=== PATIENT | male | born 1955 | race Caucasian/White ===

== ENCOUNTER 2017-12-15 10:22 | Inpatient (IN) | payer MEDICAID, SELFPAY ==
[2017-12-15] VITALS (101 sets, daily range): BP systolic 112–191; BP diastolic 77–128; PULSE 99–135; RESP 14–27; TEMP 36.7–38.4; O2SAT 90–100
[2017-12-15 10:59] LABS: Abs Immature Grans 0.04 k/cumm (0.0-0.09); Absolute Basophil Count 0.04 k/cumm (0.0-0.2); Absolute Eosinophil Count 0.04 k/cumm (0.0-0.7); Absolute Lymphocyte Count 1.09 k/cumm (1.2-3.4); Absolute Monocyte Count 0.54 k/cumm (0.11-0.7); Absolute Neutrophil Count 7.41 k/cumm (1.2-6.7); Basophils % 0.4; Eosinophils % 0.4; Immature Grans % 0.4; Lymphocytes % 11.9; Mean Corp. HGB Concentration 28.6 g/dL (32.0-36.0); Mean Corpuscular Hemoglobin 22.8 pg (27.0-33.0); Mean Corpuscular Volume 79.9 fL (80-95); Mean Platelet Volume 8.8 fL (8.0-11.0); Monocytes % 5.9; RBC 1.84 m/cumm (4.50-6.00); White Blood Cell Count 9.16 k/cumm (4.4-10.8)
[2017-12-15 11:08] LABS: HGB 4.2 g/dL (13.5-17.5)
[2017-12-15 11:09] LABS: HCT 14.7 % (40.0-50.0)
[2017-12-15 11:15] LABS: ALT 10 U/L (12-78); AST 6 U/L (15-37); Alkaline Phosphatase 112 U/L (46-116); Anion Gap 18.1 mmol/L (3-11); Bilirubin, Total 0.2 mg/dL (0.2-1.0); CO2 16.9 mmol/L (21.0-32.0); Calcium 8.9 mg/dL (8.5-10.1); Chloride 104 mmol/L (98-107); Glucose 154 mg/dL (70-100); Lipase 193 U/L (73-393); Potassium 3.4 mmol/L (3.5-5.1); Sodium 139 mmol/L (136-145); Total Protein 7.2 g/dL (6.4-8.2)
--- NOTE | 2017-12-15 11:16 | DI.RPTCT_ITS ---
SYMPTOMS/DIAGNOSIS: COUGH, HEMATURIA, SHORTNESS OF BREATH, WT LOSS, CONCERN FOR CANCER CT SCAN OF THE CHEST, ABDOMEN AND PELVIS: CT scan of the chest, abdomen and pelvis was performed without intravenous or oral contrast material. CT SCAN OF THE ABDOMEN AND PELVIS: The urinary bladder is enlarged with asymmetric bladder wall thickening. There does appear to be a mass involving the base of the bladder extending superiorly , posteriorly and left laterally. The mass measures at least 10.4 cm in length. Calcifications are associated with the mass. While this may represent a bladder mass, the possibility of an infiltrative enlarged prostatic mass can not be excluded. The mass does result in bilateral marked hydronephrosis. There does appear to be some atrophy of the left kidney. There are several round hypodensities seen within the liver. Further characterization is limited due to the lack of IV contrast. The gallbladder is negative by CT criteria. No biliary ductal dilatation is seen. Splenic granuloma are seen. The pancreas is unremarkable. There is thickening of the limbs of the left adrenal gland. The right adrenal gland is unremarkable. There is diverticulosis of the colon but no findings to suggest acute diverticulitis. No findings to suggest an acute appendicitis or bowel inflammation or obstruction is seen. No significant abdominal or pelvic ascites or adenopathy is present. There is atherosclerosis of the abdominal aorta but no aneurysmal dilatation is present. There is a large right hydrocele noted. There is ankylosis of the right sacroiliac joint. Multi-level degenerative changes are present throughout the lumbar spine. No suspicious lytic or sclerotic lesions are seen in the bones. IMPRESSION: 1. Large mass involving the urinary bladder suspicious for a neoplasm. The possibility of a large infiltrative prostate carcinoma can not be excluded. 2. Resultant marked bilateral hydronephrosis with mild left renal atrophy. 3. Hypodense lesions seen within the liver. They can not be further characterized on this noncontrast examination. While these may represent cysts, hepatic metastases can not be excluded. 4. Thickening of the left adrenal gland. Follow up is recommended. 5. MRI should be considered for further evaluation of these findings in the liver and adrenal gland. CT SCAN OF THE CHEST: The thoracic aorta is of normal caliber with mild atherosclerosis. The heart size is within normal limits. No significant pericardial effusion is seen. Coronary artery calcifications are present. No significant mediastinal or hilar adenopathy is seen on this noncontrast examination. No pleural effusion or pneumothorax is identified. Severe emphysematous changes are present in the lungs. No noncalcified pulmonary nodules or pulmonary infiltrates are seen. Degenerative changes are present in the spine. No suspicious lytic or sclerotic lesions are seen in the bones. IMPRESSION: 1. No evidence of thoracic metastatic disease. 2. Severe emphysematous changes. These findings were discussed with Dr. Humphreys of the emergency department on the date of the examination.
[2017-12-15 11:17] LABS: BUN 86 mg/dL (7-18); CREATININE 8.51 mg/dL (0.70-1.30); Troponin I 0.07 ng/mL (0.00-0.06)
[2017-12-15] MEDS: Normal Saline 1,000 ML 1000 ML IV (11:17)
[2017-12-15 11:25] LABS: Anisocytosis 1+; Diff Comment RBC Morph Reviewed; Hypochromasia 3+; Microcytosis 2+; Ovalocytes 2+; Polychromasia Present
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
[2017-12-15 11:26] LABS: Platelet Count 663 x1000/uL (130-400); Poikilocytes 1+
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
[2017-12-15 13:51] LABS: Bilirubin Negative (Negative); Blood Large (Negative); Clarity Cloudy; Glucose Negative (Negative); Ketones Negative (Negative); Leukocyte Esterase Trace (Negative); Nitrite Negative (Negative); Urobilinogen 0.2 EU/dL (Up TO 0.2)
[2017-12-15 13:55] LABS: RBC >50 (0-2)
[2017-12-15 13:56] LABS: C & S Indicated? C&S Done As Ordered
[2017-12-15 15:47] LABS: Troponin I 0.27 ng/mL (0.00-0.06)
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
[2017-12-15 19:35] LABS: Troponin I 0.55 ng/mL (0.00-0.06)
[2017-12-15 22:29] LABS: Troponin I 0.67 ng/mL (0.00-0.06)
[2017-12-15 23:30] LABS: HCT 24.4 % (40.0-50.0); HGB 7.9 g/dL (13.5-17.5); Mean Corp. HGB Concentration 32.4 g/dL (32.0-36.0); Mean Corpuscular Hemoglobin 26.7 pg (27.0-33.0); Mean Corpuscular Volume 82.4 fL (80-95); Mean Platelet Volume 9.2 fL (8.0-11.0); Platelet Count 561 x1000/uL (130-400); RBC 2.96 m/cumm (4.50-6.00); RBC Distribution Width 16.7 % (11.8-14.1); White Blood Cell Count 12.93 k/cumm (4.4-10.8)
[2017-12-15] MEDS: Acetaminophen 500 MG TAB 1000 MG PO (23:38)
[2017-12-15] MEDS: Normal Saline Flush 10 ML SYR IVP (23:54)
[2017-12-16] VITALS (46 sets, daily range): BP systolic 112–159; BP diastolic 76–97; PULSE 92–116; RESP 17–23; TEMP 36.2–37.7; O2SAT 93–98
[2017-12-16 06:54] LABS: Abs Immature Grans 0.02 k/cumm (0.0-0.09); Absolute Eosinophil Count 0.08 k/cumm (0.0-0.7); Absolute Lymphocyte Count 1.11 k/cumm (1.2-3.4); Basophils % 0.2; Eosinophils % 0.7; HCT 22.9 % (40.0-50.0); HGB 7.2 g/dL (13.5-17.5); Immature Grans % 0.2; Lymphocytes % 9.2; Mean Corp. HGB Concentration 31.4 g/dL (32.0-36.0); Mean Corpuscular Hemoglobin 25.9 pg (27.0-33.0); Mean Corpuscular Volume 82.4 fL (80-95); Mean Platelet Volume 9.4 fL (8.0-11.0); Monocytes % 9.1; Neutrophils % 80.6; Platelet Count 504 x1000/uL (130-400); RBC 2.78 m/cumm (4.50-6.00); RBC Distribution Width 16.4 % (11.8-14.1); White Blood Cell Count 12.04 k/cumm (4.4-10.8)
[2017-12-16 06:57] LABS: Absolute Basophil Count 0.02 k/cumm (0.0-0.2)
[2017-12-16 07:13] LABS: ALT 10 U/L (12-78); AST 7 U/L (15-37); Albumin 2.6 g/dL (3.4-5.0); Alkaline Phosphatase 96 U/L (46-116); Anion Gap 20.2 mmol/L (3-11); Bilirubin, Total 0.4 mg/dL (0.2-1.0); CO2 13.8 mmol/L (21.0-32.0); Calcium 8.6 mg/dL (8.5-10.1); Chloride 106 mmol/L (98-107); Estimated GFR 6.58 (mL/min/1.73m2); Glucose 92 mg/dL (70-100); Potassium 3.6 mmol/L (3.5-5.1); Sodium 140 mmol/L (136-145); Total Protein 6.1 g/dL (6.4-8.2)
[2017-12-16 07:29] LABS: BUN 85 mg/dL (7-18)
[2017-12-16 07:30] LABS: Troponin I 0.67 ng/mL (0.00-0.06)
--- NOTE | 2017-12-16 09:46 | PHARADMIT ---
Addendum entered by Blaise Mota III 12/17/17 12:42: Pharmacy Note Subjective Patient went down to [facility] for nephrostomy tube placement. Received four transfusions while here. Objective VS-OK SCr-8.47 WBC-13.92 H&H-9.7/29.8 Assessment No new meds Plan to biopsy bladder mass when patient returns, from [facility] . Original Note: Admission Pharmacy Clinical Review Anemia, renal failure, malignancy, Bladder mass Code Status Full Code Current Weight Wgt- 56 kg Renally Cleared and Narrow Therapeutic Index Meds CrCl~ 7 mL/min Meds-OK QTc Value / Action Taken QTc-478 na BP Control, Fever BP- 134/82 Tmax- 38.4C Electrolytes reviewed Na- 140 K+3.6 DVT Prophylaxis none Opiate Usage / Scheduled Bowel Regimen Ordered No Yes Plt/SCr for Heparin / Enoxaparin Plts-5450 SCr-8.30 INR for Warfarin na H/H stable, WBC/Bands H&H- 7.2/22.9 WBC-12.04 Antibiotic appropriateness none Cultures and Sensitivities Urine/Blood- pending Surgical ABX d/c within 24 hr na DM control / Insulin Dosing BG- 92 Heart Failure (Check EF%) (EDMUND's, B-Block, Diuretics) none IV to PO Switch No Home Meds Reviewed Yes Home Meds Not Ordered No known home meds Comments
[2017-12-16] MEDS: Acetaminophen 325 MG TAB PO (12:39)
[2017-12-16 16:17] LABS: HCT 27.9 % (40.0-50.0); HGB 9.2 g/dL (13.5-17.5)
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
--- NOTE | 2017-12-16 17:55 | UCONE_ITS ---
DATE OF ENCOUNTER: December 16, 2017 IMPRESSION: Pelvic mass. PLAN: Given the smoking history and the peripheral calcifications on the mass, I would suspect it is a bladder primary versus a prostate primary. A biopsy would certainly be in order. When I spoke wi th our anesthesia providers about this gentleman, they were quite leery about giving him any anesthet ic, especially in the face of a rising troponin level. We will see what his lab work does overnight. I have allowed him to start eating today but I have as ked him to be n.p.o. after midnight until I evaluate him early in the morning. I can then revisit th e case with our anesthesia providers and see if there is any higher comfort level in giving him some monitored anesthesia care. The odds of placing retrograde stents in this gentleman are next to nothing so arranging for Inter[facility] tional Radiology to place nephrostomy tubes is highly recommended. If our anesthesia providers are n ot overly comfortable with the monitored anesthesia care here at our facility, we will defer on the b iopsy and allow the more definitive cystoscopy and biopsy to be taken at a larger facility once a tra nsfer can be arranged. CHIEF COMPLAINT: Pelvic mass. HISTORY: This is a 62-year-old gentleman who presented to the Emergency Room yesterday. He was comp laining of weakness and lightheadedness. He also admits that he has lost between 70 and 80 pounds ov er the past year without trying. He has had gross hematuria for 6 to 12 months now. He occasionally will pass clots. He has never zamora d any dysuria. He currently admits to having a good stream when he starts urinating but then having the clots or something cut down on his stream immediately. When he was evaluated in the Emergency Room he was found to be severely anemic with a hemoglobin of 4 . His serum creatinine was up over 8. A CT scan demonstrated a very large pelvic mass that replaces the majority of his bladder. He also has bilateral hydronephrosis and hydroureter. There is some l oss of renal parenchyma on the left side. The right renal parenchyma appears fairly well preserved. Initially it was recommended that he be transferred to a larger facility that has access to [facility] Radiology for nephrostomy tube placement as well as dialysis capabilities. No beds were availa ble so he was admitted to our facility until a bed opens up. I have been asked to see him for consideration of a biopsy of his pelvic mass for tissue diagnosis. Since his admission he has received 4 units of packed red blood cells. His hemoglobin has increased to 7.9 grams per dL after 3 units of blood. At the time of his admission his troponin level was slightly elevated. It has continued to rise thro ughout the last 24 hours. PAST MEDICAL HISTORY: Significant for inguinal hernia and hydrocele. PAST SURGICAL HISTORY: Lumbar laminectomy and ankle surgery. CURRENT MEDICATIONS: Listed elsewhere in the chart. ALLERGIES: Sulfa. SOCIAL HISTORY: He is a long-time smoker. REVIEW OF SYSTEMS: GENERAL: He does admit to weakness. HEENT: He has no vision change. ENDOCRINE: He has no history of diabetes or thyroid dysfunction. RESPIRATORY: He has a chronic cough. He has no hemoptysis. CARDIAC: He denies chest pain. GI: He has no nausea or vomiting. He has no history of hepatitis, ulcers, or jaundice. NEURO: He has no seizures or migraine headaches. HEME: He has no known bleeding disorders. PHYSICAL EXAMINATION: GENERAL: He appears older than his stated age. He does not appear to be in any distress. ABDOMEN: Soft, with no peritoneal signs. His bladder is not distended. There is some firmness over the suprapubic region. EXTREMITIES: There is no edema in the lower extremities. No inguinal adenopathy was found. LABS/IMAGING: I reviewed his labs as well as his CT scan. There is a large mass that occupies the m ajority of the lumen of his bladder. There appears to be some calcification on the periphery of the mass and areas. There is bilateral hydronephrosis and hydroureter all the way down to the bladder.
--- NOTE | 2017-12-16 21:19 | PGE_ITS ---
DATE: December 16, 2017 ASSESSMENT AND PLAN: #1. Profound anemia. Likely on the basis of severe hematuria from a friable pelvic mass, presumed t o be a malignancy. I spoke with Dr. Sharma from Urology and the hope is that he can do a cystoscopy a nd biopsy fairly simply given the size and location of the mass. We are hoping that could be done to jeanne. #2. Acute renal failure. This is likely on the basis of obstruction of both ureters. He has hydrou reter and hydronephrosis. The plan is to set him up for bilateral nephrostomy tubes. This is going to be done through [facility]iology at [facility]. This is set up for early tomorrow morning, down and back procedure. We are hoping his renal function will improve with this drainage procedure . #3. Elevated troponins. At this point we are presuming this is likely on the basis of demand ischem ia when he was anemic. His troponins peaked at 0.67 and are now trending downward. EKG does show so me T wave inversion anterolaterally. We will repeat his EKG and further trend his troponins, but it does not appear to be on the basis of a primary coronary artery disease. Type II acute coronary synd albina. Further ischemic workup to be done as an outpatient. #4. Disposition. Transferred out of the ICU today. Continue to monitor in acute care status as abo ve. REASON FOR ADMISSION: Severe anemia/renal failure/pelvic mass. SUBJECTIVE: He had a relatively good night. There were some problems with urinary drainage and he h ad to have his catheter changed or manipulated. He continues to drain fairly large amounts of burgun dy urine. Pain control is not an issue. His appetite has been okay. He is actually upset about not eating this morning. He denies fever, chills, or rigors. OBJECTIVE: Vital signs: Temperature 37.3, T-max is 38.4 which occurred at around 11:30 p.m. last night. Blood pressure 144/94. Respiratory rate 20. Pulse 109. Saturation 96% on room air. General: On exam he is a somewhat disheveled appearing man but in good spirits, in no apparent distr ess. Abdomen: The abdominal exam remains benign. He has a flat abdomen. No masses are palpable. No gua rding or rebound. LABORATORY EVALUATION: White count 12.04 thousand. Hemoglobin had come down to 7.2. He received 2 more units of packed red cells today and it came up to 9.2. Hematocrit 27.9. Platelets 504,000, 80 segs, 9 lymphs, no bands. Sodium 140, potassium 3.6, BUN 85, creatinine 8.3. Cardiac troponins 0.07, 0.27, 0.55, 0.67, 0.67, 0.40.
[2017-12-16] MEDS: Mylanta Suspension 30 ML CUP PO (22:15)
[2017-12-16] MEDS: Normal Saline Flush 10 ML SYR IVP (22:25)
[2017-12-17] VITALS (8 sets, daily range): BP systolic 111–154; BP diastolic 76–104; PULSE 98–107; RESP 17–20; TEMP 36.4–37.1; O2SAT 96–98
--- NOTE | 2017-12-17 04:04 | NUR.NOTE ---
Nursing Note: Pt stating urge to void, but not passing urine. Physician informed. Pulled back on Giron at [place] with empty syringe w/ no result, pushed 30 mL of NS and pulled back with no result, checked catheter visually for clot, none seen. Bloody, watery fluid dripping from uretheral meatus, around catheter.
--- NOTE | 2017-12-17 05:58 | NUR.NOTE ---
Nursing Note: Pt again stating very painful urge to void. Flushed Giron with 50 mL NS and pulled back producing an instant 250 of red/burgundy hematuria. Pt states instant relief of pain.
[2017-12-17 07:04] LABS: Abs Immature Grans 0.04 k/cumm (0.0-0.09); Absolute Basophil Count 0.03 k/cumm (0.0-0.2); Absolute Lymphocyte Count 0.96 k/cumm (1.2-3.4); Absolute Monocyte Count 1.27 k/cumm (0.11-0.7); Absolute Neutrophil Count 11.39 k/cumm (1.2-6.7); Basophils % 0.2; Eosinophils % 1.7; HCT 29.8 % (40.0-50.0); HGB 9.7 g/dL (13.5-17.5); Immature Grans % 0.3; Lymphocytes % 6.9; Mean Corp. HGB Concentration 32.6 g/dL (32.0-36.0); Mean Corpuscular Hemoglobin 26.9 pg (27.0-33.0); Mean Corpuscular Volume 82.8 fL (80-95); Mean Platelet Volume 9.3 fL (8.0-11.0); Monocytes % 9.1; Neutrophils % 81.8; Platelet Count 535 x1000/uL (130-400); RBC Distribution Width 16.4 % (11.8-14.1); White Blood Cell Count 13.92 k/cumm (4.4-10.8)
--- NOTE | 2017-12-17 07:06 | NUR.NOTE ---
Nursing Note: Nurse to nurse with Rhona at [facility] [place], [address].
[2017-12-17 07:08] LABS: Absolute Eosinophil Count 0.24 k/cumm (0.0-0.7)
[2017-12-17 07:14] LABS: Anion Gap 18.9 mmol/L (3-11); CO2 15.1 mmol/L (21.0-32.0); Calcium 8.7 mg/dL (8.5-10.1); Chloride 106 mmol/L (98-107); Estimated GFR 6.43 (mL/min/1.73m2); Glucose 110 mg/dL (70-100); Potassium 3.9 mmol/L (3.5-5.1); Sodium 140 mmol/L (136-145)
[2017-12-17 07:17] LABS: BUN 89 mg/dL (7-18); CREATININE 8.47 mg/dL (0.70-1.30)
--- NOTE | 2017-12-17 08:43 | PDOC.PROG ---
Date of Service: 12/17/17 Time of Service: 08:43 Assessment/Plan - Assessment/Plan (1) Pelvic mass in male Plan: Having the nephrostomy tubes placed to divert the urine away from the bladder will help immensely. If/when his renal function improves, he may be more stable for a cystoscopy and more extensive TURBT rather than a simple biopsy. The more extensive TURBT would allow for better identification and staging of his primary lesion. History of Present Illness - History of Present Illness Chief Complaint: Bladder mass History of Present Illness: He had clot retention overnight requiring hand irrigation. He is due for nephrostomy tube placement at [facility] [place]. Review of Systems - Review of Systems Constitutional: denies: Fever, Chills Respiratory: denies: Shortness of Breath Cardiovascular: denies: Chest Pain - Medications/Allergies Allergies/Adverse Reactions: Allergies Allergy/AdvReac Type Severity Reaction Status Date / Time Sulfa (Sulfonamide Allergy Intermediate Unverified 12/15/17 10:33 Antibiotics) Medications: Current Medications Acetaminophen (Tylenol) 650 mg VA Q4H PRN PRN Acetaminophen (Tylenol) 325 - 650 mg PO Q4H PRN PRN Last Admin: 12/16/17 12:39 Dose: 650 mg Al Hydrox/Mg Hydrox/Simethicone (Mylanta Liquid) 30 ml PO Q2H PRN PRN Last Admin: 12/16/17 22:15 Dose: 30 ml Albuterol Sulfate (Proventil Updraft) 2.5 mg UPD Q2H PRN PRN Dimethicone/Zinc Oxide (Yudi Protect Cream) 0 gm TP PRN PRN Docusate Sodium (Colace) 100 mg PO TID PRN PRN IV Miscellaneous Supplies () 1 each IV DIRECTED WAYNE Magnesium Hydroxide (Milk Of Magnesia) 30 ml PO DAILY PRN PRN Nicotine (Nicoderm Cq) 14 mg TD DAILY PRN PRN Polyethylene Glycol (Miralax) 17 gm PO DAILY PRN PRN PRN Reason: Constipation Sodium Chloride (Saline Flush 10 Ml Syringe) 0 ml IVP PRN PRN Last Admin: 12/16/17 22:25 Dose: 20 ml Objective - Exam Vitals and I&O: Vital Signs Temp 37.1 C 12/17/17 07:05 Pulse 98 H 12/17/17 07:05 Resp 20 12/17/17 07:05 BP 145/98 12/17/17 07:05 Pulse Ox 96 12/17/17 07:05 Intake & Output 12/16/17 12/16/17 12/17/17 11:59 23:59 11:59 Intake Total 713 670 Output Total 850 Balance 713 -180 Weight 56 kg 57 kg Intake: IV 463 20 Oral 250 250 Blood Product 350 Rbc Leuko Reduced Unit 350 [id number] Other 50 Rbc Leuko Reduced Unit 50 [id number] Output: Urine 550 Stool 300 Other: Urine Color Dark Red Dark Red Urine Appearance Hematuria Hematuria Clots Comment Lots of clots, Dr. Velazquez aware. REYNALDO Vazquez in to see patient. Stool Size Small Small Stool Characteristics Liquid Soft Mucoid Brown Bloody Voiding Methods Indwelling Catheter - Results Results: Laboratory Results WBC 13.92 k/cumm (4.4-10.8) H 12/17/17 06:42 RBC 3.60 m/cumm (4.50-6.00) L 12/17/17 06:42 Hgb 9.7 g/dL (13.5-17.5) L 12/17/17 06:42 Hct 29.8 % (40.0-50.0) L 12/17/17 06:42 MCV 82.8 fL (80-95) 12/17/17 06:42 MCH 26.9 pg (27.0-33.0) L 12/17/17 06:42 MCHC 32.6 g/dL (32.0-36.0) 12/17/17 06:42 RDW 16.4 % (11.8-14.1) H 12/17/17 06:42 Plt Count 535 x1000/uL (130-400) H 12/17/17 06:42 MPV 9.3 fL (8.0-11.0) 12/17/17 06:42 Immature Gran % 0.3 12/17/17 06:42 Neutrophils % 81.8 12/17/17 06:42 Lymphocytes % 6.9 12/17/17 06:42 Monocytes % 9.1 12/17/17 06:42 Eosinophils % 1.7 12/17/17 06:42 Basophils % 0.2 12/17/17 06:42 Absolute Neutrophils 11.39 k/cumm (1.2-6.7) H 12/17/17 06:42 Absolute Lymphocytes 0.96 k/cumm (1.2-3.4) L 12/17/17 06:42 Absolute Monocytes 1.27 k/cumm (0.11-0.7) H 12/17/17 06:42 Absolute Eosinophils 0.24 k/cumm (0.0-0.7) 12/17/17 06:42 Absolute Basophils 0.03 k/cumm (0.0-0.2) 12/17/17 06:42 Differential Comment Rbc morph reviewed 12/15/17 10:39 RBC Morphology See below 12/15/17 10:39 Polychromasia Present 12/15/17 10:39 Hypochromasia 3+ 12/15/17 10:39 Poikilocytosis 1+ 12/15/17 10:39 Anisocytosis 1+ 12/15/17 10:39 Microcytosis 2+ 12/15/17 10:39 Ovalocytes 2+ 12/15/17 10:39 Sodium 140 mmol/L (136-145) 12/17/17 06:42 Potassium 3.9 mmol/L (3.5-5.1) 12/17/17 06:42 Chloride 106 mmol/L (98-107) 12/17/17 06:42 Carbon Dioxide 15.1 mmol/L (21.0-32.0) L 12/17/17 06:42 Anion Gap 18.9 mmol/L (3-11) H 12/17/17 06:42 BUN 89 mg/dL (7-18) H* 12/17/17 06:42 Creatinine 8.47 mg/dL (0.70-1.30) H* 12/17/17 06:42 Estimated GFR/1.73 m2 6.43 (mL/min/1.73m2) 12/17/17 06:42 Glucose 110 mg/dL (70-100) H 12/17/17 06:42 Calcium 8.7 mg/dL (8.5-10.1) 12/17/17 06:42 Total Bilirubin 0.4 mg/dL (0.2-1.0) 12/16/17 06:10 AST 7 U/L (15-37) L 12/16/17 06:10 ALT 10 U/L (12-78) L 12/16/17 06:10 Alkaline Phosphatase 96 U/L (46-116) 12/16/17 06:10 Troponin I 0.40 ng/mL (0.00-0.06) H 12/16/17 16:05 Total Protein 6.1 g/dL (6.4-8.2) L 12/16/17 06:10 Albumin 2.6 g/dL (3.4-5.0) L 12/16/17 06:10 Lipase 193 U/L (73-393) 12/15/17 10:39 TSH 1.70 uIU/mL (0.358-3.74) 12/15/17 10:39 Urine Color Red (Yellow) 12/15/17 13:30 Urine Clarity Cloudy 12/15/17 13:30 Urine pH 6.0 (5-8) 12/15/17 13:30 Ur Specific [place] 1.020 (1.005-1.025) 12/15/17 13:30 Urine Protein >=300 mg/dL (Negative) H 12/15/17 13:30 Urine Ketones Negative mg/dL (Negative) 12/15/17 13:30 Urine Blood Large (Negative) H 12/15/17 13:30 Urine Nitrite Negative (Negative) 12/15/17 13:30 Urine Bilirubin Negative (Negative) 12/15/17 13:30 Urine Urobilinogen 0.2 EU/dL (Up TO 0.2) 12/15/17 13:30 Ur Leukocyte Esterase Trace (Negative) H 12/15/17 13:30 Urine RBC >50 (0-2) H 12/15/17 13:30 Urine WBC Not Applicable 12/15/17 13:30 Ur Epithelial Cells Not Applicable 12/15/17 13:30 Urine Crystals Not Applicable 12/15/17 13:30 Urine Bacteria Not Applicable 12/15/17 13:30 Urine Mucus Not Applicable 12/15/17 13:30 Ur Culture Indicated? C&s done as ordered 12/15/17 13:30 Urine Glucose Negative mg/dL (Negative) 12/15/17 13:30 Patient ABO/Rh O Positive 12/15/17 10:39 Antibody Screen Negative 12/15/17 10:39 Crossmatch See Detail 12/15/17 10:39 Reaction Clerical Check No clerical errors 12/15/17 10:39 Clerical Work Check None 12/15/17 10:39 Pre-Trans Blood Type O Positive 12/15/17 10:39 Pre-Trans Bld Appearanc No hemolysis/icterus 12/15/17 10:39 Pre-Trans BRITNEY Not Applicable 12/15/17 10:39 Post-Trans Blood Type O Positive 12/15/17 10:39 Post-Trans Spec Appear No hemolysis/icterus 12/15/17 10:39 Post-Trans BRITNEY Negative 12/15/17 10:39 Reaction Pathol Review Negative-complete 12/15/17 10:39
--- NOTE | 2017-12-17 08:46 | PDOC.PROG_ITS ---
Date of Service: 12/17/17 Time of Service: 08:43 Assessment/Plan - Assessment/Plan (1) Pelvic mass in male Plan: Having the nephrostomy tubes placed to divert the urine away from the bladder will help immensely. If/when his renal function improves, he may be more stable for a cystoscopy and more extensive TURBT rather than a simple biopsy. The more extensive TURBT would allow for better identification and staging of his primary lesion. History of Present Illness - History of Present Illness Chief Complaint: Bladder mass History of Present Illness: He had clot retention overnight requiring hand irrigation. He is due [place] [facility] [place] Review of Systems - Review of Systems Constitutional: denies: Fever, Chills Respiratory: denies: Shortness of Breath Cardiovascular: denies: Chest Pain - Medications/Allergies Allergies/Adverse Reactions: Allergies Allergy/AdvReac Type Severity Reaction Status Date / Time Sulfa (Sulfonamide Allergy Intermediate Unverified 12/15/17 10:33 Antibiotics) Medications: Current Medications Acetaminophen (Tylenol) 650 mg NC Q4H PRN PRN Acetaminophen (Tylenol) 325 - 650 mg PO Q4H PRN PRN Last Admin: 12/16/17 12:39 Dose: 650 mg Al Hydrox/Mg Hydrox/Simethicone (Mylanta Liquid) 30 ml PO Q2H PRN PRN Last Admin: 12/16/17 22:15 Dose: 30 ml Albuterol Sulfate (Proventil Updraft) 2.5 mg UPD Q2H PRN PRN Dimethicone/Zinc Oxide (Yudi Protect Cream) 0 gm TP PRN PRN Docusate Sodium (Colace) 100 mg PO TID PRN PRN IV Miscellaneous Supplies () 1 each IV DIRECTED WAYNE Magnesium Hydroxide (Milk Of Magnesia) 30 ml PO DAILY PRN PRN Nicotine (Nicoderm Cq) 14 mg TD DAILY PRN PRN Polyethylene Glycol (Miralax) 17 gm PO DAILY PRN PRN PRN Reason: Constipation Sodium Chloride (Saline Flush 10 Ml Syringe) 0 ml IVP PRN PRN Last Admin: 12/16/17 22:25 Dose: 20 ml Objective - Exam Vitals and I&O: Vital Signs Temp 37.1 C 12/17/17 07:05 Pulse 98 H 12/17/17 07:05 Resp 20 12/17/17 07:05 BP 145/98 12/17/17 07:05 Pulse Ox 96 12/17/17 07:05 Intake & Output 12/16/17 12/16/17 12/17/17 11:59 23:59 11:59 Intake Total 713 670 Output Total 850 Balance 713 -180 Weight 56 kg 57 kg Intake: IV 463 20 Oral 250 250 Blood Product 350 Rbc Leuko Reduced Unit 350 [id number] Other 50 Rbc Leuko Reduced Unit 50 [id number] Output: Urine 550 Stool 300 Other: Urine Color Dark Red Dark Red Urine Appearance Hematuria Hematuria Clots Comment Lots of clots, Dr. Velazquez aware. REYNALDO Vazquez in to see patient. Stool Size Small Small Stool Characteristics Liquid Soft Mucoid Brown Bloody Voiding Methods Indwelling Catheter - Results Results: Laboratory Results WBC 13.92 k/cumm (4.4-10.8) H 12/17/17 06:42 RBC 3.60 m/cumm (4.50-6.00) L 12/17/17 06:42 Hgb 9.7 g/dL (13.5-17.5) L 12/17/17 06:42 Hct 29.8 % (40.0-50.0) L 12/17/17 06:42 MCV 82.8 fL (80-95) 12/17/17 06:42 MCH 26.9 pg (27.0-33.0) L 12/17/17 06:42 MCHC 32.6 g/dL (32.0-36.0) 12/17/17 06:42 RDW 16.4 % (11.8-14.1) H 12/17/17 06:42 Plt Count 535 x1000/uL (130-400) H 12/17/17 06:42 MPV 9.3 fL (8.0-11.0) 12/17/17 06:42 Immature Gran % 0.3 12/17/17 06:42 Neutrophils % 81.8 12/17/17 06:42 Lymphocytes % 6.9 12/17/17 06:42 Monocytes % 9.1 12/17/17 06:42 Eosinophils % 1.7 12/17/17 06:42 Basophils % 0.2 12/17/17 06:42 Absolute Neutrophils 11.39 k/cumm (1.2-6.7) H 12/17/17 06:42 Absolute Lymphocytes 0.96 k/cumm (1.2-3.4) L 12/17/17 06:42 Absolute Monocytes 1.27 k/cumm (0.11-0.7) H 12/17/17 06:42 Absolute Eosinophils 0.24 k/cumm (0.0-0.7) 12/17/17 06:42 Absolute Basophils 0.03 k/cumm (0.0-0.2) 12/17/17 06:42 Differential Comment Rbc morph reviewed 12/15/17 10:39 RBC Morphology See below 12/15/17 10:39 Polychromasia Present 12/15/17 10:39 Hypochromasia 3+ 12/15/17 10:39 Poikilocytosis 1+ 12/15/17 10:39 Anisocytosis 1+ 12/15/17 10:39 Microcytosis 2+ 12/15/17 10:39 Ovalocytes 2+ 12/15/17 10:39 Sodium 140 mmol/L (136-145) 12/17/17 06:42 Potassium 3.9 mmol/L (3.5-5.1) 12/17/17 06:42 Chloride 106 mmol/L (98-107) 12/17/17 06:42 Carbon Dioxide 15.1 mmol/L (21.0-32.0) L 12/17/17 06:42 Anion Gap 18.9 mmol/L (3-11) H 12/17/17 06:42 BUN 89 mg/dL (7-18) H* 12/17/17 06:42 Creatinine 8.47 mg/dL (0.70-1.30) H* 12/17/17 06:42 Estimated GFR/1.73 m2 6.43 (mL/min/1.73m2) 12/17/17 06:42 Glucose 110 mg/dL (70-100) H 12/17/17 06:42 Calcium 8.7 mg/dL (8.5-10.1) 12/17/17 06:42 Total Bilirubin 0.4 mg/dL (0.2-1.0) 12/16/17 06:10 AST 7 U/L (15-37) L 12/16/17 06:10 ALT 10 U/L (12-78) L 12/16/17 06:10 Alkaline Phosphatase 96 U/L (46-116) 12/16/17 06:10 Troponin I 0.40 ng/mL (0.00-0.06) H 12/16/17 16:05 Total Protein 6.1 g/dL (6.4-8.2) L 12/16/17 06:10 Albumin 2.6 g/dL (3.4-5.0) L 12/16/17 06:10 Lipase 193 U/L (73-393) 12/15/17 10:39 TSH 1.70 uIU/mL (0.358-3.74) 12/15/17 10:39 Urine Color Red (Yellow) 12/15/17 13:30 Urine Clarity Cloudy 12/15/17 13:30 Urine pH 6.0 (5-8) 12/15/17 13:30 Ur Specific [place] 1.020 (1.005-1.025) 12/15/17 13:30 Urine Protein >=300 mg/dL (Negative) H 12/15/17 13:30 Urine Ketones Negative mg/dL (Negative) 12/15/17 13:30 Urine Blood Large (Negative) H 12/15/17 13:30 Urine Nitrite Negative (Negative) 12/15/17 13:30 Urine Bilirubin Negative (Negative) 12/15/17 13:30 Urine Urobilinogen 0.2 EU/dL (Up TO 0.2) 12/15/17 13:30 Ur Leukocyte Esterase Trace (Negative) H 12/15/17 13:30 Urine RBC >50 (0-2) H 12/15/17 13:30 Urine WBC Not Applicable 12/15/17 13:30 Ur Epithelial Cells Not Applicable 12/15/17 13:30 Urine Crystals Not Applicable 12/15/17 13:30 Urine Bacteria Not Applicable 12/15/17 13:30 Urine Mucus Not Applicable 12/15/17 13:30 Ur Culture Indicated? C&s done as ordered 12/15/17 13:30 Urine Glucose Negative mg/dL (Negative) 12/15/17 13:30 Patient ABO/Rh O Positive 12/15/17 10:39 Antibody Screen Negative 12/15/17 10:39 Crossmatch See Detail 12/15/17 10:39 Reaction Clerical Check No clerical errors 12/15/17 10:39 Clerical Work Check None 12/15/17 10:39 Pre-Trans Blood Type O Positive 12/15/17 10:39 Pre-Trans Bld Appearanc No hemolysis/icterus 12/15/17 10:39 Pre-Trans BRITNEY Not Applicable 12/15/17 10:39 Post-Trans Blood Type O Positive 12/15/17 10:39 Post-Trans Spec Appear No hemolysis/icterus 12/15/17 10:39 Post-Trans BRITNEY Negative 12/15/17 10:39 Reaction Pathol Review Negative-complete 12/15/17 10:39
--- NOTE | 2017-12-17 09:14 | PDOC.CMPRO ---
Date of Service: 12/17/17 Time of Service: 09:14 Care Management Progress Note S/O: CM reviewed Pt chart including clinicals. Cornelio was transported to [facility] [place] for bilateral nephrostomy tubes he is not present at the time of CM visit. Anticipate he will return this afternoon via ambulance. and Hospitalist are managing patient care. CM to continue to provide support to patient upon return and throughout admission discharge planning and disposition. A:62 year old male with a pelvic mass. P: Cornelio will continue to be inpatient anticipate no change in status today. Dr. Sharma to continue to consult possible procedure once he recovers from procedure at [facility] [place]. Cornelio plans to return home when medically cleared anticipate new home health services through [facility] to manage nephrostomy tubes,and provide transition support. CM to review options with patient. CM to continue to provide support discharge planning and disposition. Patients family will transport home at time of discharge.
--- NOTE | 2017-12-17 09:22 | CMPROGNOTE_ITS ---
Date of Service: 12/17/17 Time of Service: 09:14 Care Management Progress Note S/O: CM reviewed Pt chart including clinicals. Cornelio was transported [place] [facility] tubes he is not present at the time of CM visit. Anticipate he will return this afternoon via ambulance. and Hospitalist are managing patient care. CM to continue to provide support to patient upon return and throughout admission discharge planning and disposition. A:62 year old male with a pelvic mass. P: Cornelio will continue to be inpatient anticipate no change in status today. Dr. Sharma to continue to consult possible procedure once he recovers from procedure at [facility]. Cornelio plans to return home when medically cleared anticipate new home health services through [facility] to manage nephrostomy tubes,and provide transition support. CM to review options with patient. CM to continue to provide support discharge planning and disposition. Patients family will transport home at time of discharge.
[2017-12-17] MEDS: Nicotine 14 MG/24 HR PATCH TD (13:12)
[2017-12-17] MEDS: Acetaminophen 325 MG TAB PO (13:13)
[2017-12-17] MEDS: Normal Saline Flush 10 ML SYR IVP ×3 (13:38→23:30)
[2017-12-17] MEDS: Normal Saline 1,000 ML 100 ML IV ×2 (13:38→22:34)
--- NOTE | 2017-12-17 16:23 | PGE_ITS ---
PROGRESS NOTE DATE: December 17, 2017 @ 1531 hours ASSESSMENT/PLAN: 1. Acute renal failure. This is on the basis of a large pelvic mass that has blocked both ureters ca using hydronephrosis, hydroureter bilaterally. He now has nephrostomy tubes, which should decompress the kidneys. I suspect he'll get a post-obstruction diuresis, started on IV normal saline 100 cc's/ hour and respond to hypotension with fluid boluses and try to maintain a good urine output. I think most of his acute renal failure should improve with decompression of the kidneys. Will trend his BMP . 2. Pelvic mass. This is friable and causing quite a bit of hematuria, which is likely the source of his blood loss anemia. Hemoglobin is stable now. Will trend out his hemoglobin and hematocrit over the next few days. 3. Metabolic acidosis. Probably related to his acute retention and renal failure. 4. Elevated Troponins. Those are trending downward. His EKG shows no new changes. It appears to be related to demand ischemia. 5. Disposition. Continue to monitor in Acute Care status, following labs and monitoring for post-obs tructive diuresis. Dr. Sharma felt that he should be NPO after midnight on Wednesday in anticipation of possible transurethral resection of bladder tumor on Wednesday. He'll be in to reassess him at that ti me. +++++++++++++++++++++++ REASON FOR ADMISSION: Pelvic mass with acute renal failure, hydronephrosis. SUBJECTIVE: The patient went down to Interventional Radiology at [facility] today and had bilateral n ephrostomy tubes placed. Both are draining some blood-tinged urine. Immediately upon return he stat ed that his Giron catheter was plugged and that he was unable to void. He had a lot of pressure and then finally leaked around the catheter. He thought there might be a blood clot. OBJECTIVE: Vital Signs: Temperature 36.5, he's been afebrile; blood pressure is 133/85, respiratory rate 17, pulse 98, satting 98% on room air. On exam somewhat disheveled appearing; he's in mild distress. He was having some pain in the pelvic region, more likely related to retention issues. No pain in the nephrostomy tube region. Sitting hi m up right, examining that area, the left dressing shows a little serum on the dressing; the right si de was negative. His LUNGS were completely clear. His HEART regular; no significant murmur. ABDOMEN flat, nontender, no masses palpable. LABORATORY DATA: White count is 13.92 thousand, hemoglobin 9.7, hematocrit 29.8, platelets 535,000, 81 segs, 6 lymphs, no bands. Sodium 140, potassium 3.9, BUN 89, creatinine 8.47, blood sugar 110. EKG shows a pulse of 101, T-wave inversion in V4, V6 and V1 and aVL, unchanged from admission.
[2017-12-17] MEDS: Mylanta Suspension 30 ML CUP PO (23:30)
[2017-12-18] VITALS (25 sets, daily range): BP systolic 113–153; BP diastolic 20–96; PULSE 86–113; RESP 17–20; TEMP 36.4–37.9; O2SAT 96–99
[2017-12-18] MEDS: Mylanta Suspension 30 ML CUP PO (00:34)
[2017-12-18] MEDS: Acetaminophen 325 MG TAB PO ×2 (00:35→08:43)
[2017-12-18 07:16] LABS: Abs Immature Grans 0.04 k/cumm (0.0-0.09); Absolute Basophil Count 0.03 k/cumm (0.0-0.2); Absolute Eosinophil Count 0.19 k/cumm (0.0-0.7); Absolute Lymphocyte Count 1.03 k/cumm (1.2-3.4); Absolute Monocyte Count 1.07 k/cumm (0.11-0.7); Absolute Neutrophil Count 9.11 k/cumm (1.2-6.7); Basophils % 0.3; Eosinophils % 1.7; HCT 24.5 % (40.0-50.0); Immature Grans % 0.3; Mean Corp. HGB Concentration 32.7 g/dL (32.0-36.0); Mean Corpuscular Hemoglobin 27.1 pg (27.0-33.0); Mean Corpuscular Volume 83.1 fL (80-95); Mean Platelet Volume 8.6 fL (8.0-11.0); Monocytes % 9.3; Neutrophils % 79.4; Platelet Count 461 x1000/uL (130-400); RBC 2.95 m/cumm (4.50-6.00); RBC Distribution Width 16.5 % (11.8-14.1); White Blood Cell Count 11.47 k/cumm (4.4-10.8)
[2017-12-18 07:42] LABS: Anion Gap 16.9 mmol/L (3-11); CO2 16.1 mmol/L (21.0-32.0); Calcium 8.2 mg/dL (8.5-10.1); Chloride 107 mmol/L (98-107); Estimated GFR 7.02 (mL/min/1.73m2); Glucose 140 mg/dL (70-100); Potassium 3.8 mmol/L (3.5-5.1); Sodium 140 mmol/L (136-145)
[2017-12-18 07:46] LABS: BUN 86 mg/dL (7-18); CREATININE 7.85 mg/dL (0.70-1.30)
[2017-12-18 07:47] LABS: Troponin I 0.21 ng/mL (0.00-0.06)
[2017-12-18] MEDS: Normal Saline 1,000 ML 100 ML IV ×2 (08:43→18:50)
[2017-12-18] MEDS: Nicotine 14 MG/24 HR PATCH TD ×2 (08:43→16:28)
[2017-12-18 14:07] LABS: HGB 8.1 g/dL (13.5-17.5)
--- NOTE | 2017-12-18 15:33 | PDOC.PROG ---
Date of Service: 12/18/17 Time of Service: 15:33 Assessment/Plan - Assessment/Plan (1) Acute bilateral obstructive uropathy Assessment: Status post bilateral nephrostomy tubes. Both nephrostomy tubes are continue to drain hematuria. The left nephrostomy tube is not draining as much urine as the right nephrostomy tube. Plan: Continue nephrostomy drainage for his bilateral obstruction. (2) Acute renal failure Assessment: Secondary to acute obstructive uropathy Plan: There is been a gradual decline in his creatinine since the bilateral nephrostomy tubes replaced. Creatinine is down to 7.85 today from a peak level of 8.5. He will be transfused to maintain his hemoglobin above 8 g. I will start him on oral bicarbonate therapy for his metabolic acidosis. (3) Anemia Assessment: Worsening anemia. He initially presented with a hemoglobin of 4.2 g and was transfused up to 7.9 g and then given further transfusion up to hemoglobin of 9.7 g. Overnight he is dropped down to 8 g but is remained at that level throughout the course of the day. Because he continues to have hematuria from both nephrostomy tubes as well as hematuria from his penis he is can require further transfusions to maintain his hemoglobin at 8 g or higher. Plan: Transfuse 2 units of packed red cells and monitor serial H&H. (4) Non-STEMI (non-ST elevated myocardial infarction) Assessment: No symptoms of chest pain or pressure. His troponin peaked at 0.67 and has fallen down to 0.21 today. His admission and repeat ECG showed ischemic ST-T wave changes across the anterolateral leads. Unfortunately no echocardiogram has been obtained yet. Because of his ongoing bleeding he is not a candidate for antiplatelet therapy or anticoagulants. However if his blood pressure and pulse will tolerate he should be on a low dose beta-tremayne Plan: Begin low-dose Lopressor. Once he stabilized from his acute renal failure and obstructive uropathy and further discussion can be held regarding stress MPI. Presumably this is a type II myocardial ischemic event related to the stress of his acute hematuria and acute renal failure and obstruction. I will check an echocardiogram on Wednesday morning and consult with cardiology to assist with his management. 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 Sharma plans to proceed with cystoscopy and transurethral bladder resection of the tumor. Because of the recent coronary ischemic event this does place the patient at higher risk however because of the active hematuria the patient is really not a candidate for any form of coronary intervention and I think that the cystoscopy should proceed in order to control the bleeding. (6) Hematuria Assessment: Presumably the ongoing active hematuria from his nephrostomy tubes in his urethra is secondary to his bladder mass. Plan: Continued monitoring and transfusion as needed. I am a order 2 units of packed red cells and in light of his uremia I am going to order cryoprecipitate to help with his platelet dysfunction. I checked with pharmacy and we do not carry the appropriate doses of DDAVP Review of Systems - Review of Systems Constitutional: denies: Fever, Chills Cardiovascular: denies: Chest Pain Gastrointestinal: denies: Nausea, Vomiting, Abdominal Pain Genitourinary: Hematuria Musculoskeletal: Other (mild tenderness over his nephrostomy sites) - Medications/Allergies Allergies/Adverse Reactions: Allergies Allergy/AdvReac Type Severity Reaction Status Date / Time Sulfa (Sulfonamide Allergy Intermediate Unverified 12/15/17 10:33 Antibiotics) Medications: Current Medications Acetaminophen (Tylenol) 650 mg NE Q4H PRN PRN Acetaminophen (Tylenol) 325 - 650 mg PO Q4H PRN PRN Last Admin: 12/18/17 08:43 Dose: 650 mg Acetaminophen (Tylenol) 650 mg PO TODAY [facility] Al Hydrox/Mg Hydrox/Simethicone (Mylanta Liquid) 30 ml PO Q2H PRN PRN Last Admin: 12/18/17 00:34 Dose: 30 ml Albuterol Sulfate (Proventil Updraft) 2.5 mg UPD Q2H PRN PRN Dimethicone/Zinc Oxide (Yudi Protect Cream) 0 gm TP PRN PRN Docusate Sodium (Colace) 100 mg PO TID PRN PRN Hydromorphone HCl (Dilaudid) 2 mg PO Q4H PRN PRN PRN Reason: Pain Sodium Chloride (Saline 1000ml Bag) 1,000 mls @ 100 mls/hr IV INFUSION [facility] Last Admin: 12/18/17 08:43 Dose: 100 mls/hr IV Miscellaneous Supplies () 1 each IV DIRECTED [facility] Magnesium Hydroxide (Milk Of Magnesia) 30 ml PO DAILY PRN PRN Miscellaneous (Remove Patch) 1 each TP DAILY [facility] Last Admin: 12/18/17 14:57 Dose: 1 each Morphine Sulfate () 2 mg IVP Q2H PRN PRN Last Admin: 12/17/17 23:29 Dose: 2 mg Nicotine (Nicoderm Cq) 14 mg TD DAILY PRN PRN Last Admin: 12/18/17 08:43 Dose: 14 mg Nicotine (Nicotrol) 10 mg IH Q2H PRN PRN Last Admin: 12/18/17 14:57 Dose: 10 mg Polyethylene Glycol (Miralax) 17 gm PO DAILY PRN PRN PRN Reason: Constipation Sodium Chloride (Saline Flush 10 Ml Syringe) 0 ml IVP PRN PRN Last Admin: 12/17/17 23:30 Dose: 10 ml Trimethobenzamide HCl (Tigan) 300 mg PO BID PRN PRN PRN Reason: Nausea Objective - Exam Vitals and I&O: Vital Signs Temp 37.0 C 12/18/17 11:55 Pulse 96 H 12/18/17 11:55 Resp 20 12/18/17 11:55 BP 126/78 12/18/17 11:55 Pulse Ox 98 12/18/17 11:55 Intake & Output 12/17/17 12/18/17 12/18/17 23:59 11:59 23:59 Intake Total 2178 2154 250 Output Total 800 1550 Balance 1378 604 250 Intake: IV 908 674 Oral 1270 1480 250 Output: Urine 800 1550 Other: Urine Color Bright Red Dark Red Bright Red Urine Appearance Hematuria Hematuria Clots Urine Odor None None Comment Pt. has bilateral nephrostomy tubes. OUTPUT: R- 550, L- 100 Stool Size Moderate Stool Characteristics Soft Liquid Brown Voiding Methods Bedside Commode General: Alert, Oriented x3, Cooperative Lungs: Clear to auscultation, Normal air movement Cardiovascular: Regular rate, Normal S1, Normal S2 Abdomen: Normal bowel sounds, Soft, Tenderness (Patient has some slight tenderness over both flanks at the site of the nephrostomy tubes. There is no visible bruising. Bandages over each nephrostomy tube site has small amount of blood on the bandage. Nephrostomy tubes are draining hematuria) Extremities: denies: Edema Psych/Mental Status: Mental status NL, Mood NL - Results Results: Laboratory Results WBC 11.47 k/cumm (4.4-10.8) H 12/18/17 07:00 RBC 2.95 m/cumm (4.50-6.00) L 08/04/18 07:00 Hgb 8.1 g/dL (13.5-17.5) L 12/18/17 14:00 Hct 25.0 % (40.0-50.0) L 12/18/17 14:00 MCV 83.1 fL (80-95) 12/18/17 07:00 MCH 27.1 pg (27.0-33.0) 12/18/17 07:00 MCHC 32.7 g/dL (32.0-36.0) 12/18/17 07:00 RDW 16.5 % (11.8-14.1) H 12/18/17 07:00 Plt Count 461 x1000/uL (130-400) H 12/18/17 07:00 MPV 8.6 fL (8.0-11.0) 12/18/17 07:00 Immature Gran % 0.3 12/18/17 07:00 Neutrophils % 79.4 12/18/17 07:00 Lymphocytes % 9.0 12/18/17 07:00 Monocytes % 9.3 12/18/17 07:00 Eosinophils % 1.7 12/18/17 07:00 Basophils % 0.3 12/18/17 07:00 Absolute Neutrophils 9.11 k/cumm (1.2-6.7) H 12/18/17 07:00 Absolute Lymphocytes 1.03 k/cumm (1.2-3.4) L 12/18/17 07:00 Absolute Monocytes 1.07 k/cumm (0.11-0.7) H 12/18/17 07:00 Absolute Eosinophils 0.19 k/cumm (0.0-0.7) 12/18/17 07:00 Absolute Basophils 0.03 k/cumm (0.0-0.2) 12/18/17 07:00 Differential Comment Rbc morph reviewed 12/15/17 10:39 RBC Morphology See below 12/15/17 10:39 Polychromasia Present 12/15/17 10:39 Hypochromasia 3+ 12/15/17 10:39 Poikilocytosis 1+ 12/15/17 10:39 Anisocytosis 1+ 12/15/17 10:39 Microcytosis 2+ 12/15/17 10:39 Ovalocytes 2+ 12/15/17 10:39 Sodium 140 mmol/L (136-145) 12/18/17 07:00 Potassium 3.8 mmol/L (3.5-5.1) 12/18/17 07:00 Chloride 107 mmol/L (98-107) 12/18/17 07:00 Carbon Dioxide 16.1 mmol/L (21.0-32.0) L 12/18/17 07:00 Anion Gap 16.9 mmol/L (3-11) H 12/18/17 07:00 BUN 86 mg/dL (7-18) H* 12/18/17 07:00 Creatinine 7.85 mg/dL (0.70-1.30) H* 12/18/17 07:00 Estimated GFR/1.73 m2 7.02 (mL/min/1.73m2) 12/18/17 07:00 Glucose 140 mg/dL (70-100) H 12/18/17 07:00 Calcium 8.2 mg/dL (8.5-10.1) L 12/18/17 07:00 Total Bilirubin 0.4 mg/dL (0.2-1.0) 12/16/17 06:10 AST 7 U/L (15-37) L 12/16/17 06:10 ALT 10 U/L (12-78) L 12/16/17 06:10 Alkaline Phosphatase 96 U/L (46-116) 12/16/17 06:10 Troponin I 0.21 ng/mL (0.00-0.06) H 12/18/17 07:00 Total Protein 6.1 g/dL (6.4-8.2) L 12/16/17 06:10 Albumin 2.6 g/dL (3.4-5.0) L 12/16/17 06:10 Lipase 193 U/L (73-393) 12/15/17 10:39 TSH 1.70 uIU/mL (0.358-3.74) 12/15/17 10:39 Urine Color Red (Yellow) 12/15/17 13:30 Urine Clarity Cloudy 12/15/17 13:30 Urine pH 6.0 (5-8) 12/15/17 13:30 Ur Specific Vaughn 1.020 (1.005-1.025) 12/15/17 13:30 Urine Protein >=300 mg/dL (Negative) H 12/15/17 13:30 Urine Ketones Negative mg/dL (Negative) 12/15/17 13:30 Urine Blood Large (Negative) H 12/15/17 13:30 Urine Nitrite Negative (Negative) 12/15/17 13:30 Urine Bilirubin Negative (Negative) 12/15/17 13:30 Urine Urobilinogen 0.2 EU/dL (Up TO 0.2) 12/15/17 13:30 Ur Leukocyte Esterase Trace (Negative) H 12/15/17 13:30 Urine RBC >50 (0-2) H 12/15/17 13:30 Urine WBC Not Applicable 12/15/17 13:30 Ur Epithelial Cells Not Applicable 12/15/17 13:30 Urine Crystals Not Applicable 12/15/17 13:30 Urine Bacteria Not Applicable 12/15/17 13:30 Urine Mucus Not Applicable 12/15/17 13:30 Ur Culture Indicated? C&s done as ordered 12/15/17 13:30 Urine Glucose Negative mg/dL (Negative) 12/15/17 13:30 Patient ABO/Rh O Positive 12/15/17 10:39 Antibody Screen Negative 12/15/17 10:39 Crossmatch See Detail 12/18/17 15:25 Reaction Clerical Check No clerical errors 12/15/17 10:39 Clerical Work Check None 12/15/17 10:39 Pre-Trans Blood Type O Positive 12/15/17 10:39 Pre-Trans Bld Appearanc No hemolysis/icterus 12/15/17 10:39 Pre-Trans BRITNEY Not Applicable 12/15/17 10:39 Post-Trans Blood Type O Positive 12/15/17 10:39 Post-Trans Spec Appear No hemolysis/icterus 12/15/17 10:39 Post-Trans BRITNEY Negative 12/15/17 10:39 Reaction Pathol Review Negative-complete 12/15/17 10:39
[2017-12-18] MEDS: Acetaminophen 325 MG TAB 650 MG PO (17:40)
[2017-12-18] MEDS: diphenhydrAMINE 25 MG CAP 50 MG PO (17:40)
[2017-12-18] MEDS: Metoprolol 12.5 MG TAB PO (18:17)
--- NOTE | 2017-12-18 18:44 | PDOC.CMPRO ---
Care Management Progress Note S/O: Cornelio was sitting up in bed visiting with friends and family. A:62 year old male with a pelvic mass. S/P bilateral nephrostomy tube placement P: Return home when medically cleared anticipate new home health services through [facility] to manage nephrostomy tubes,and provide transition support.
--- NOTE | 2017-12-18 18:51 | CMPROGNOTE_ITS ---
Care Management Progress Note S/O: Cornelio was sitting up in bed visiting with friends and family. A:62 year old male with a pelvic mass. S/P bilateral nephrostomy tube placement P: Return home when medically cleared anticipate new home health services through [facility] to manage nephrostomy tubes,and provide transition support.
--- NOTE | 2017-12-18 19:16 | NUR.NOTE ---
Nursing Note: Laboratory had some technological issues when entering the information for the first unit of cryoprecipitate in to the computer. Therefore it looks like the unit was issued at 1834 and that the RN was then late in beginning to transfuse the cryoprecipitate. The first unit of the cryoprecipitate was actually issued to the RN at 1847 on 12/18/17 and RN then began transfusing the cryoprecipitate at 1852 on 12/18/17. Under TAR, RN had to enter the reason as Pt. not available at this time, because there wasn't a place to write a reason.
[2017-12-18] MEDS: Normal Saline 500 ML 50 ML IV (22:51)
[2017-12-19] VITALS (16 sets, daily range): BP systolic 107–142; BP diastolic 61–92; PULSE 85–96; RESP 18–20; TEMP 36.7–37.9; O2SAT 95–98
[2017-12-19] MEDS: Metoprolol 12.5 MG TAB PO ×3 (02:45→17:38)
[2017-12-19 07:03] LABS: Abs Immature Grans 0.02 k/cumm (0.0-0.09); Absolute Basophil Count 0.04 k/cumm (0.0-0.2); Absolute Lymphocyte Count 1.03 k/cumm (1.2-3.4); Absolute Monocyte Count 1.41 k/cumm (0.11-0.7); Basophils % 0.4; Eosinophils % 2.7; HCT 30.1 % (40.0-50.0); HGB 9.8 g/dL (13.5-17.5); Immature Grans % 0.2; Lymphocytes % 9.2; Mean Corp. HGB Concentration 32.6 g/dL (32.0-36.0); Mean Corpuscular Hemoglobin 27.5 pg (27.0-33.0); Mean Corpuscular Volume 84.3 fL (80-95); Mean Platelet Volume 9.3 fL (8.0-11.0); Monocytes % 12.6; Neutrophils % 74.9; Platelet Count 387 x1000/uL (130-400); RBC 3.57 m/cumm (4.50-6.00); RBC Distribution Width 16.3 % (11.8-14.1); White Blood Cell Count 11.22 k/cumm (4.4-10.8)
[2017-12-19 07:17] LABS: Anion Gap 16.4 mmol/L (3-11); BUN 76 mg/dL (7-18); CO2 16.6 mmol/L (21.0-32.0); Calcium 8.3 mg/dL (8.5-10.1); Chloride 108 mmol/L (98-107); Estimated GFR 7.73 (mL/min/1.73m2); Glucose 127 mg/dL (70-100); Potassium 3.8 mmol/L (3.5-5.1); Sodium 141 mmol/L (136-145)
[2017-12-19 07:19] LABS: CREATININE 7.22 mg/dL (0.70-1.30)
[2017-12-19] MEDS: Nicotine 14 MG/24 HR PATCH TD (08:25)
[2017-12-19] MEDS: Normal Saline 1,000 ML 100 ML IV (15:30)
[2017-12-19] MEDS: Acetaminophen 325 MG TAB PO (15:34)
[2017-12-19] MEDS: Mylanta Suspension 30 ML CUP PO (15:34)
--- NOTE | 2017-12-19 19:04 | PDOC.PROG ---
Date of Service: 12/19/17 Time of Service: 19:04 Assessment/Plan - Assessment/Plan (1) Acute bilateral obstructive uropathy Plan: Continue nephrostomy tube drainage for bilateral ureteral obstructions from bladder mass (2) Acute renal failure Plan: Continue IV fluid hydration. Continue monitoring of his intake and output and daily BMP (3) Anemia Assessment: Improved status post transfusion of 2 units of packed red cells and 10 units of cryoprecipitate. Patient initially presented to the hospital with a hemoglobin of 4.2 g Plan: Continue monitoring of hematuria and serial hemograms (4) Non-STEMI (non-ST elevated myocardial infarction) Assessment: Patient denies any current ischemic symptoms. His peak troponin was 0.67 and came down to 0.21 yesterday. It suspected that his NE was a type II demand ischemia due to his bilateral ureteral obstruction and severe anemia. 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 Transfuse as needed for any significant drop in his hemoglobin. Goal is to keep his hemoglobin above 8 g. History of Present Illness - History of Present Illness Chief Complaint: Acute bilateral obstructive uropathy, AK I, hematuria, NSTEMI History of Present Illness: Mr. Rosas denies any chest pain or pressure nor any dyspnea. He continues to have hematuria of both nephrostomy tubes. He has more flow out of his right nephrostomy tube than his left. He also is voiding through his penis and having hematuria from there as well. Patient is scheduled for surgery tomorrow to undergo cystoscopy with transurethral bladder resection by Dr. Sharma. His creatinine is declining ever so slowly. Creatinine is down to 7.22 from a peak of 8.51. His BUN is down to 76 from a peak of 89. He was transfused 2 units of packed red cells yesterday and his hemoglobin came up from 8.1 g to 9.8 g today. He received cryoprecipitate yesterday as well to correct any potential platelet dysfunction from his uremia. Review of Systems - Review of Systems Respiratory: denies: SOB with Excertion Cardiovascular: denies: Chest Pain, Palpitations, Light Headedness Gastrointestinal: denies: Nausea, Vomiting, Abdominal Pain Genitourinary: Hematuria - Medications/Allergies Allergies/Adverse Reactions: Allergies Allergy/AdvReac Type Severity Reaction Status Date / Time Sulfa (Sulfonamide Allergy Intermediate Unverified 12/15/17 10:33 Antibiotics) Medications: Current Medications Acetaminophen (Tylenol) 650 mg AK Q4H PRN PRN Acetaminophen (Tylenol) 325 - 650 mg PO Q4H PRN PRN Last Admin: 12/19/17 15:34 Dose: 650 mg Acetaminophen (Tylenol) 650 mg PO TODAY [facility] Last Admin: 12/18/17 17:40 Dose: 650 mg Al Hydrox/Mg Hydrox/Simethicone (Mylanta Liquid) 30 ml PO Q2H PRN PRN Last Admin: 12/19/17 15:34 Dose: 30 ml Albuterol Sulfate (Proventil Updraft) 2.5 mg UPD Q2H PRN PRN Dimethicone/Zinc Oxide (Yudi Protect Cream) 0 gm TP PRN PRN Docusate Sodium (Colace) 100 mg PO TID PRN PRN Hydromorphone HCl (Dilaudid) 2 mg PO Q4H PRN PRN PRN Reason: Pain Sodium Chloride (Saline 1000ml Bag) 1,000 mls @ 100 mls/hr IV INFUSION [facility] Last Admin: 12/19/17 15:30 Dose: 100 mls/hr Sodium Chloride (Saline 500ml Bag) 500 mls @ 0 mls/hr IV PRN PRN PRN Reason: As Directed Last Admin: 12/18/17 22:51 Dose: 50 mls/hr IV Miscellaneous Supplies () 1 each IV DIRECTED [facility] Magnesium Hydroxide (Milk Of Magnesia) 30 ml PO DAILY PRN PRN Metoprolol Tartrate (Lopressor) 12.5 mg PO Q8H [facility] Last Admin: 12/19/17 17:38 Dose: 12.5 mg Miscellaneous (Remove Patch) 1 each TP DAILY [facility] Last Admin: 12/19/17 08:25 Dose: 1 each Morphine Sulfate () 2 mg IVP Q2H PRN PRN Last Admin: 12/17/17 23:29 Dose: 2 mg Nicotine (Nicoderm Cq) 14 mg TD DAILY PRN PRN Last Admin: 12/19/17 08:25 Dose: 14 mg Nicotine (Nicotrol) 10 mg IH Q2H PRN PRN Last Admin: 12/18/17 14:57 Dose: 10 mg Polyethylene Glycol (Miralax) 17 gm PO DAILY PRN PRN PRN Reason: Constipation Sodium Chloride (Saline Flush 10 Ml Syringe) 0 ml IVP PRN PRN Last Admin: 12/17/17 23:30 Dose: 10 ml Trimethobenzamide HCl (Tigan) 300 mg PO BID PRN PRN PRN Reason: Nausea Objective - Exam Vitals and I&O: Vital Signs Temp 37.9 C H 12/19/17 15:19 Pulse 96 H 12/19/17 15:19 Resp 20 12/19/17 15:19 BP 137/90 12/19/17 15:19 Pulse Ox 98 12/19/17 15:19 Intake & Output 12/18/17 12/19/17 12/19/17 23:59 11:59 23:59 Intake Total 2547 955 2314 Output Total 800 2450 800 Balance 1747 -1495 1514 Intake: IV 3367 485 4779 Oral 9335 552 3293 Blood Product 163 681 Cryoprecipitate Unit 76 [id number] Cryoprecipitate Unit 87 [id number] Rbc Leuko Reduced Unit 362 [id number] Rbc Leuko Reduced Unit 319 [id number] Output: Urine 800 2450 800 Other: Urine Color Dark Red Dark Red Dark Red Bright Red Urine Appearance Hematuria Hematuria Hematuria Clots Clots Urine Odor None None Comment Output R- 700, L- 100. RN Serena informed. Output: L- 100, R- 600 BRII Lyons informed. 650mls from right neph tube. some clots present. mostly clear dark red urine. 50mls from right neph tube. opaque dark red fluid. consistancy of fluid was thicker in comparison with the fluid from the left side. this scribe had Serena TERESA come observe the right side neph tube collection bag. Stool Size Moderate Small Stool Characteristics Soft Soft Liquid Formed Brown Brown Voiding Methods Bedside Commode Bedside Commode General: Alert, Oriented x3, Cooperative, No acute distress, Other (Patient sitting up in bed watching TV in no distress) Lungs: Other (Scattered expiratory wheezes) Cardiovascular: Regular rate, Normal S1, Normal S2 Abdomen: Normal bowel sounds, Soft, Other (Both nephrostomy tubes are draining hematuria.). denies: Tenderness Extremities: denies: Edema, Tenderness/swelling Psych/Mental Status: Mental status NL, Mood NL - Results Results: Laboratory Results WBC 11.22 k/cumm (4.4-10.8) H 12/19/17 06:30 RBC 3.57 m/cumm (4.50-6.00) L 12/19/17 06:30 Hgb 9.8 g/dL (13.5-17.5) L 12/19/17 06:30 Hct 30.1 % (40.0-50.0) L D 12/19/17 06:30 MCV 84.3 fL (80-95) 12/19/17 06:30 MCH 27.5 pg (27.0-33.0) 12/19/17 06:30 MCHC 32.6 g/dL (32.0-36.0) 12/19/17 06:30 RDW 16.3 % (11.8-14.1) H 12/19/17 06:30 Plt Count 387 x1000/uL (130-400) 12/19/17 06:30 MPV 9.3 fL (8.0-11.0) 12/19/17 06:30 Immature Gran % 0.2 12/19/17 06:30 Neutrophils % 74.9 12/19/17 06:30 Lymphocytes % 9.2 12/19/17 06:30 Monocytes % 12.6 12/19/17 06:30 Eosinophils % 2.7 12/19/17 06:30 Basophils % 0.4 12/19/17 06:30 Absolute Neutrophils 8.40 k/cumm (1.2-6.7) H 12/19/17 06:30 Absolute Lymphocytes 1.03 k/cumm (1.2-3.4) L 12/19/17 06:30 Absolute Monocytes 1.41 k/cumm (0.11-0.7) H 12/19/17 06:30 Absolute Eosinophils 0.30 k/cumm (0.0-0.7) 12/19/17 06:30 Absolute Basophils 0.04 k/cumm (0.0-0.2) 12/19/17 06:30 Differential Comment Rbc morph reviewed 12/15/17 10:39 RBC Morphology See below 12/15/17 10:39 Polychromasia Present 12/15/17 10:39 Hypochromasia 3+ 08/01/18 10:39 Poikilocytosis 1+ 12/15/17 10:39 Anisocytosis 1+ 12/15/17 10:39 Microcytosis 2+ 12/15/17 10:39 Ovalocytes 2+ 12/15/17 10:39 Sodium 141 mmol/L (136-145) 12/19/17 06:30 Potassium 3.8 mmol/L (3.5-5.1) 12/19/17 06:30 Chloride 108 mmol/L (98-107) H 12/19/17 06:30 Carbon Dioxide 16.6 mmol/L (21.0-32.0) L 12/19/17 06:30 Anion Gap 16.4 mmol/L (3-11) H 12/19/17 06:30 BUN 76 mg/dL (7-18) H 12/19/17 06:30 Creatinine 7.22 mg/dL (0.70-1.30) H* 12/19/17 06:30 Estimated GFR/1.73 m2 7.73 (mL/min/1.73m2) 12/19/17 06:30 Glucose 127 mg/dL (70-100) H 12/19/17 06:30 Calcium 8.3 mg/dL (8.5-10.1) L 12/19/17 06:30 Total Bilirubin 0.4 mg/dL (0.2-1.0) 12/16/17 06:10 AST 7 U/L (15-37) L 12/16/17 06:10 ALT 10 U/L (12-78) L 12/16/17 06:10 Alkaline Phosphatase 96 U/L (46-116) 12/16/17 06:10 Troponin I 0.21 ng/mL (0.00-0.06) H 12/18/17 07:00 Total Protein 6.1 g/dL (6.4-8.2) L 12/16/17 06:10 Albumin 2.6 g/dL (3.4-5.0) L 12/16/17 06:10 Lipase 193 U/L (73-393) 12/15/17 10:39 TSH 1.70 uIU/mL (0.358-3.74) 12/15/17 10:39 Urine Color Red (Yellow) 12/15/17 13:30 Urine Clarity Cloudy 12/15/17 13:30 Urine pH 6.0 (5-8) 12/15/17 13:30 Ur Specific [facility] 1.020 (1.005-1.025) 12/15/17 13:30 Urine Protein >=300 mg/dL (Negative) H 12/15/17 13:30 Urine Ketones Negative mg/dL (Negative) 12/15/17 13:30 Urine Blood Large (Negative) H 12/15/17 13:30 Urine Nitrite Negative (Negative) 12/15/17 13:30 Urine Bilirubin Negative (Negative) 12/15/17 13:30 Urine Urobilinogen 0.2 EU/dL (Up TO 0.2) 12/15/17 13:30 Ur Leukocyte Esterase Trace (Negative) H 12/15/17 13:30 Urine RBC >50 (0-2) H 12/15/17 13:30 Urine WBC Not Applicable 12/15/17 13:30 Ur Epithelial Cells Not Applicable 12/15/17 13:30 Urine Crystals Not Applicable 12/15/17 13:30 Urine Bacteria Not Applicable 12/15/17 13:30 Urine Mucus Not Applicable 12/15/17 13:30 Ur Culture Indicated? C&s done as ordered 12/15/17 13:30 Urine Glucose Negative mg/dL (Negative) 12/15/17 13:30 Patient ABO/Rh O Positive 12/18/17 15:45 Antibody Screen Negative 12/18/17 15:45 Crossmatch See Detail 12/18/17 15:45 Reaction Clerical Check No clerical errors 12/15/17 10:39 Clerical Work Check None 12/15/17 10:39 Pre-Trans Blood Type O Positive 12/15/17 10:39 Pre-Trans Bld Appearanc No hemolysis/icterus 12/15/17 10:39 Pre-Trans BRITNEY Not Applicable 12/15/17 10:39 Post-Trans Blood Type O Positive 12/15/17 10:39 Post-Trans Spec Appear No hemolysis/icterus 12/15/17 10:39 Post-Trans BRITNEY Negative 12/15/17 10:39 Reaction Pathol Review Negative-complete 12/15/17 10:39
--- NOTE | 2017-12-19 21:40 | PDOC.CMPRO ---
Care Management Progress Note S/O: Sitting up in bed watching TV. States he feels OK today. A: 62 y.o. male admitted for anemia, renalfailure and malignancy P: Plan is for Dr. Sharma to perform a TURP procedure and tumor biopsy tomorrow. Continue to follow and evaluate for dischage needs based onfindings and plan of care.
[2017-12-20] VITALS (7 sets, daily range): BP systolic 132–160; BP diastolic 81–99; PULSE 91–100; RESP 16–19; TEMP 36.4–37.4; O2SAT 96–99
[2017-12-20] MEDS: Metoprolol 12.5 MG TAB PO ×3 (02:50→17:16)
[2017-12-20] MEDS: Normal Saline 1,000 ML 100 ML IV ×2 (02:51→10:36)
[2017-12-20 07:02] LABS: Abs Immature Grans 0.02 k/cumm (0.0-0.09); Absolute Basophil Count 0.04 k/cumm (0.0-0.2); Absolute Eosinophil Count 0.35 k/cumm (0.0-0.7); Absolute Lymphocyte Count 1.31 k/cumm (1.2-3.4); Absolute Monocyte Count 1.36 k/cumm (0.11-0.7); Absolute Neutrophil Count 7.44 k/cumm (1.2-6.7); Basophils % 0.4; Eosinophils % 3.3; HCT 31.3 % (40.0-50.0); Immature Grans % 0.2; Lymphocytes % 12.5; Mean Corp. HGB Concentration 31.9 g/dL (32.0-36.0); Mean Corpuscular Hemoglobin 27.3 pg (27.0-33.0); Mean Corpuscular Volume 85.5 fL (80-95); Mean Platelet Volume 9.4 fL (8.0-11.0); Monocytes % 12.9; Neutrophils % 70.7; Platelet Count 406 x1000/uL (130-400); RBC 3.66 m/cumm (4.50-6.00); RBC Distribution Width 17.1 % (11.8-14.1); White Blood Cell Count 10.52 k/cumm (4.4-10.8)
[2017-12-20 07:04] LABS: Anion Gap 15.6 mmol/L (3-11); BUN 73 mg/dL (7-18); CO2 16.4 mmol/L (21.0-32.0); Calcium 8.2 mg/dL (8.5-10.1); Chloride 110 mmol/L (98-107); Estimated GFR 8.46 (mL/min/1.73m2); Glucose 72 mg/dL (70-100); Potassium 4.2 mmol/L (3.5-5.1); Sodium 142 mmol/L (136-145)
[2017-12-20 07:10] LABS: CREATININE 6.68 mg/dL (0.70-1.30)
[2017-12-20] MEDS: Nicotine 14 MG/24 HR PATCH TD (08:13)
--- NOTE | 2017-12-20 12:53 | CMPROGNOTE_ITS ---
Date of Service: 12/20/17 Time of Service: 12:53 Care Management Progress Note S/O: CM met with patient at the bedside he is sitting up, he is having some pain in his back at the nephrostomy sites. Cornleio has not gone to the OR at this time it is unclear if this is the plan for today. He continues to be NPO for pending procedure. He continues to have hematuria. He is willing to have home health services if needed, he does have nephrostomy tubes and would benefit from nursing support at home. A:62 year old male admitted with anemia, renal failure, and possible malignancy , and elevated troponin. P:Plan is for Dr. Sharma to perform a TURP procedure and tumor biopsy. Continue to follow and evaluate for discharge needs based on findings of biopsy and plan of care.
--- NOTE | 2017-12-20 13:06 | CHAPLAIN ---
Cornelio seemed to be surprised to be visited by a senior software manager. I assured him that I visit most patients. He had a friend from [facility] visiting. Cornelio did not seem interested in a longer conversation, but I will try again tomorrow.
--- NOTE | 2017-12-20 17:00 | PDOC.PROG ---
Date of Service: 12/20/17 Time of Service: 17:00 Assessment/Plan - Assessment/Plan (1) Acute bilateral obstructive uropathy Plan: continue nephrostomy tube drainage. Needs arrangement for definitive workup/treatment of bladder mass. I will ask day hospitalist to try to contact Dr. Sharma tomorrow to find out who will make arrangements and with whom the patient will be seeing for cystoscopy and transurethral bladder resection. (2) Acute renal failure Assessment: unclear as to how much is acute and how much is chronic renal failure. He has no prior labs in the [facility] system to compare his BUN and creatinine. HOwever his creatinine is slowly improving. It is now down to 6.68 from a high of 8.5. (4) Non-STEMI (non-ST elevated myocardial infarction) Assessment: His WA was felt to be a type 2 high demand ischemia and not a plaque rupture as the patient never had chest pain/pressure and his troponin's peaked at 0.[address]-T changes across his anterolaterl leads. No echocardiogram was performed. I have ordered an echo to evaluate his LV function and look for regional wall motion abnormalities as well as any valvular pathology Plan: patient is not a candidate for any antiplatelet nor anticoagulant medications, therefore he has been treated with metoprolol alone. His blood pressure and heart rate both have room for titration of his metoprolol dose. I have increased from 12.5 mg every 8 hours to 25 mg every hours (5) Pelvic mass in male Plan: Await urology's plans for definitive evaluation and treatment History of Present Illness - History of Present Illness Chief Complaint: Bladder mass, hematuria, chronic kidney disease History of Present Illness: It was my understanding from the sign out I received from Dr. Velazquez last week that this patient was supposed to go to surgery this morning for cystoscopy and transurethral bladder resection. Patient underwent bilateral nephrostomy tubes last week for severe bilateral obstructive nephropathy caused by a large obstructing bladder mass. I placed the patient on n.p.o. status last night and ordered IV fluids in anticipation that the patient will go to surgery today. I did not hear from the urologist throughout the weekend or today but only learned from the patient this evening that no surgery is planned here at [facility]. Patient is anticipating being sent to [facility] for cystoscopy and diagnosis treatment of his bladder mass. I will be going off service this evening and therefore will pass this along to Dr. Guzman, who will assume the patient's care tomorrow. I understand that this patient is a high risk surgical patient due to his multiple comorbidities including severe CKD and recent NSTEMI (probably type 2 demand ischemic WA and not plaque rupture, however, due to ongoing hematuria, and CKD he is not a candidate for cardiac cath at this point). The patient's NPO status has been revoked and he is now eating. Hopefully we can clarify in the morning when the patient's procedure will take place. The patient still has hematuria from his urostomy tubes and occasionally voids hematuria from his penis. However, his hemoglobin has remained stable at 10 gm after being transfused on Monday 12/18. (and receiving cryoprecipitate to treat for uremic platelet dysfunction). Review of Systems - Review of Systems Respiratory: Cough, Wheezing. denies: Shortness of Breath, Sputum Cardiovascular: denies: Chest Pain, Palpitations, Edema Gastrointestinal: denies: Abdominal Pain Genitourinary: Hematuria - Medications/Allergies Allergies/Adverse Reactions: Allergies Allergy/AdvReac Type Severity Reaction Status Date / Time Sulfa (Sulfonamide Allergy Intermediate Unverified 12/15/17 10:33 Antibiotics) Medications: Current Medications Acetaminophen (Tylenol) 650 mg [place] Q4H PRN PRN Acetaminophen (Tylenol) 325 - 650 mg PO Q4H PRN PRN Last Admin: 12/19/17 15:34 Dose: 650 mg Acetaminophen (Tylenol) 650 mg PO TODAY [facility] Last Admin: 12/18/17 17:40 Dose: 650 mg Al Hydrox/Mg Hydrox/Simethicone (Mylanta Liquid) 30 ml PO Q2H PRN PRN Last Admin: 12/19/17 15:34 Dose: 30 ml Albuterol Sulfate (Proventil Updraft) 2.5 mg UPD Q2H PRN PRN Dimethicone/Zinc Oxide (Yudi Protect Cream) 0 gm TP PRN PRN Docusate Sodium (Colace) 100 mg PO TID PRN PRN Hydromorphone HCl (Dilaudid) 2 mg PO Q4H PRN PRN PRN Reason: Pain Sodium Chloride (Saline 1000ml Bag) 1,000 mls @ 50 mls/hr IV INFUSION [facility] Last Admin: 12/20/17 10:36 Dose: 100 mls/hr Sodium Chloride (Saline 500ml Bag) 500 mls @ 0 mls/hr IV PRN PRN PRN Reason: As Directed Last Admin: 12/18/17 22:51 Dose: 50 mls/hr IV Miscellaneous Supplies () 1 each IV DIRECTED [facility] Magnesium Hydroxide (Milk Of Magnesia) 30 ml PO DAILY PRN PRN Metoprolol Tartrate (Lopressor) 12.5 mg PO Q8H [facility] Last Admin: 12/20/17 10:35 Dose: 12.5 mg Miscellaneous (Remove Patch) 1 each TP DAILY [facility] Last Admin: 12/20/17 08:15 Dose: 1 each Morphine Sulfate () 2 mg IVP Q2H PRN PRN Last Admin: 12/17/17 23:29 Dose: 2 mg Nicotine (Nicoderm Cq) 14 mg TD DAILY PRN PRN Last Admin: 12/20/17 08:13 Dose: 14 mg Nicotine (Nicotrol) 10 mg IH Q2H PRN PRN Last Admin: 12/18/17 14:57 Dose: 10 mg Polyethylene Glycol (Miralax) 17 gm PO DAILY PRN PRN PRN Reason: Constipation Sodium Chloride (Saline Flush 10 Ml Syringe) 0 ml IVP PRN PRN Last Admin: 12/17/17 23:30 Dose: 10 ml Trimethobenzamide HCl (Tigan) 300 mg PO BID PRN PRN PRN Reason: Nausea Objective - Exam Vitals and I&O: Vital Signs Temp 37.4 C 12/20/17 16:39 Pulse 99 H 12/20/17 16:39 Resp 18 12/20/17 16:39 BP 160/92 12/20/17 16:39 Pulse Ox 99 12/20/17 16:39 Intake & Output 12/19/17 12/20/17 12/20/17 23:59 11:59 23:59 Intake Total 2414 870 Output Total 1350 1400 1125 Balance 1064 530 -1125 Weight 59.5 kg Intake: IV 1094 820 Oral 1320 50 Output: Drainage 275 Left Lower Back 25 Right Lower Back 250 Urine 1350 1125 1125 Other: Urine Color Webb Dark Red Dark Red Urine Appearance Hematuria Hematuria Hematuria Urine Odor None None None Comment 650mls from right neph tube. some clots present. mostly clear dark red urine. no clots present. R-blood and urine, no clots present 50mls from right neph tube. opaque dark red fluid. consistancy of fluid was thicker in comparison with the fluid from the left side. L-blood and urine, no clots present this scribe had Serena RN come observe the right side neph tube collection bag. Urinal-blood and urine, no clots present All running clearer than in early am. Stool Size Small Large Moderate Stool Characteristics Soft Soft Soft Formed Liquid Brown Voiding Methods Urinal Bedside Commode General: Alert, Oriented x3, Cooperative, No acute distress Lungs: Other (coarse expiratory wheezes) Cardiovascular: Regular rate, Normal S1, Normal S2. denies: Murmurs, Gallops Abdomen: Normal bowel sounds, Soft, Other (nephrostomy tubes draining hematuria L>R). denies: Tenderness Extremities: denies: Cyanosis, Edema Psych/Mental Status: Mental status NL, Mood NL - Results Results: Laboratory Results WBC 10.52 k/cumm (4.4-10.8) 12/20/17 06:35 RBC 3.66 m/cumm (4.50-6.00) L 12/20/17 06:35 Hgb 10.0 g/dL (13.5-17.5) L 12/20/17 06:35 Hct 31.3 % (40.0-50.0) L 12/20/17 06:35 MCV 85.5 fL (80-95) 12/20/17 06:35 MCH 27.3 pg (27.0-33.0) 12/20/17 06:35 MCHC 31.9 g/dL (32.0-36.0) L 12/20/17 06:35 RDW 17.1 % (11.8-14.1) H 12/20/17 06:35 Plt Count 406 x1000/uL (130-400) H 12/20/17 06:35 MPV 9.4 fL (8.0-11.0) 12/20/17 06:35 Immature Gran % 0.2 12/20/17 06:35 Neutrophils % 70.7 12/20/17 06:35 Lymphocytes % 12.5 12/20/17 06:35 Monocytes % 12.9 12/20/17 06:35 Eosinophils % 3.3 12/20/17 06:35 Basophils % 0.4 12/20/17 06:35 Absolute Neutrophils 7.44 k/cumm (1.2-6.7) H 12/20/17 06:35 Absolute Lymphocytes 1.31 k/cumm (1.2-3.4) 12/20/17 06:35 Absolute Monocytes 1.36 k/cumm (0.11-0.7) H 12/20/17 06:35 Absolute Eosinophils 0.35 k/cumm (0.0-0.7) 12/20/17 06:35 Absolute Basophils 0.04 k/cumm (0.0-0.2) 12/20/17 06:35 Differential Comment Rbc morph reviewed 12/15/17 10:39 RBC Morphology See below 12/15/17 10:39 Polychromasia Present 12/15/17 10:39 Hypochromasia 3+ 12/15/17 10:39 Poikilocytosis 1+ 12/15/17 10:39 Anisocytosis 1+ 12/15/17 10:39 Microcytosis 2+ 12/15/17 10:39 Ovalocytes 2+ 12/15/17 10:39 Sodium 142 mmol/L (136-145) 12/20/17 06:35 Potassium 4.2 mmol/L (3.5-5.1) 12/20/17 06:35 Chloride 110 mmol/L (98-107) H 12/20/17 06:35 Carbon Dioxide 16.4 mmol/L (21.0-32.0) L 12/20/17 06:35 Anion Gap 15.6 mmol/L (3-11) H 12/20/17 06:35 BUN 73 mg/dL (7-18) H 12/20/17 06:35 Creatinine 6.68 mg/dL (0.70-1.30) H* 12/20/17 06:35 Estimated GFR/1.73 m2 8.46 (mL/min/1.73m2) 12/20/17 06:35 Glucose 72 mg/dL (70-100) D 12/20/17 06:35 Calcium 8.2 mg/dL (8.5-10.1) L 12/20/17 06:35 Total Bilirubin 0.4 mg/dL (0.2-1.0) 12/16/17 06:10 AST 7 U/L (15-37) L 12/16/17 06:10 ALT 10 U/L (12-78) L 12/16/17 06:10 Alkaline Phosphatase 96 U/L (46-116) 12/16/17 06:10 Troponin I 0.21 ng/mL (0.00-0.06) H 12/18/17 07:00 Total Protein 6.1 g/dL (6.4-8.2) L 12/16/17 06:10 Albumin 2.6 g/dL (3.4-5.0) L 12/16/17 06:10 Lipase 193 U/L (73-393) 12/15/17 10:39 TSH 1.70 uIU/mL (0.358-3.74) 12/15/17 10:39 Urine Color Red (Yellow) 12/15/17 13:30 Urine Clarity Cloudy 12/15/17 13:30 Urine pH 6.0 (5-8) 12/15/17 13:30 Ur Specific [place] 1.020 (1.005-1.025) 12/15/17 13:30 Urine Protein >=300 mg/dL (Negative) H 12/15/17 13:30 Urine Ketones Negative mg/dL (Negative) 12/15/17 13:30 Urine Blood Large (Negative) H 12/15/17 13:30 Urine Nitrite Negative (Negative) 12/15/17 13:30 Urine Bilirubin Negative (Negative) 12/15/17 13:30 Urine Urobilinogen 0.2 EU/dL (Up TO 0.2) 12/15/17 13:30 Ur Leukocyte Esterase Trace (Negative) H 12/15/17 13:30 Urine RBC >50 (0-2) H 12/15/17 13:30 Urine WBC Not Applicable 12/15/17 13:30 Ur Epithelial Cells Not Applicable 12/15/17 13:30 Urine Crystals Not Applicable 12/15/17 13:30 Urine Bacteria Not Applicable 12/15/17 13:30 Urine Mucus Not Applicable 12/15/17 13:30 Ur Culture Indicated? C&s done as ordered 12/15/17 13:30 Urine Glucose Negative mg/dL (Negative) 12/15/17 13:30 Patient ABO/Rh O Positive 12/18/17 15:45 Antibody Screen Negative 12/18/17 15:45 Crossmatch See Detail 12/18/17 15:45 Reaction Clerical Check No clerical errors 12/15/17 10:39 Clerical Work Check None 12/15/17 10:39 Pre-Trans Blood Type O Positive 12/15/17 10:39 Pre-Trans Bld Appearanc No hemolysis/icterus 12/15/17 10:39 Pre-Trans BRITNEY Not Applicable 12/15/17 10:39 Post-Trans Blood Type O Positive 12/15/17 10:39 Post-Trans Spec Appear No hemolysis/icterus 12/15/17 10:39 Post-Trans BRITNEY Negative 12/15/17 10:39 Reaction Pathol Review Negative-complete 12/15/17 10:39
[2017-12-20] MEDS: Sodium Bicarbonate 650 MG TAB PO (20:19)
[2017-12-20] MEDS: Mylanta Suspension 30 ML CUP PO (20:19)
[2017-12-20] MEDS: Metoprolol 25 MG TAB PO (22:43)
[2017-12-20] MEDS: Normal Saline 1,000 ML 50 ML IV (22:59)
[2017-12-21] VITALS (7 sets, daily range): BP systolic 127–149; BP diastolic 32–103; PULSE 87–93; RESP 18–20; TEMP 36.7–37.3; O2SAT 96–98
[2017-12-21] MEDS: Metoprolol 25 MG TAB PO (06:06)
[2017-12-21 07:12] LABS: Abs Immature Grans 0.03 k/cumm (0.0-0.09); Absolute Basophil Count 0.03 k/cumm (0.0-0.2); Absolute Eosinophil Count 0.39 k/cumm (0.0-0.7); Absolute Monocyte Count 1.37 k/cumm (0.11-0.7); Basophils % 0.3; Eosinophils % 3.4; HCT 30.5 % (40.0-50.0); HGB 9.8 g/dL (13.5-17.5); Immature Grans % 0.3; Mean Corp. HGB Concentration 32.1 g/dL (32.0-36.0); Mean Corpuscular Hemoglobin 27.7 pg (27.0-33.0); Mean Corpuscular Volume 86.2 fL (80-95); Mean Platelet Volume 9.5 fL (8.0-11.0); Monocytes % 11.8; Neutrophils % 73.2; Platelet Count 427 x1000/uL (130-400); RBC 3.54 m/cumm (4.50-6.00); RBC Distribution Width 17.2 % (11.8-14.1); White Blood Cell Count 11.59 k/cumm (4.4-10.8)
[2017-12-21 07:14] LABS: Absolute Lymphocyte Count 1.27 k/cumm (1.2-3.4); Absolute Neutrophil Count 8.48 k/cumm (1.2-6.7)
--- NOTE | 2017-12-21 07:16 | PDOC.PROG ---
Date of Service: 12/21/17 Time of Service: 07:16 Assessment/Plan - Assessment/Plan (1) Pelvic mass in male Plan: I am currently unable to safely perform his TURBT here at our facility. I will contact [place] [facility] [place] see about a nonemergent transfer/procedure/evaluation. History of Present Illness - History of Present Illness Chief Complaint: Bladder mass History of Present Illness: His renal function is improving slowly, but is still not to the point that makes our anesthesia providers comfortable (in term of anesthetic agents available at our facility). He has some discomfort at his neph tube sites, but the urine is clearing. Review of Systems - Review of Systems Constitutional: denies: Fever, Chills Respiratory: Cough - Medications/Allergies Allergies/Adverse Reactions: Allergies Allergy/AdvReac Type Severity Reaction Status Date / Time Sulfa (Sulfonamide Allergy Intermediate Unverified 12/15/17 10:33 Antibiotics) Medications: Current Medications Acetaminophen (Tylenol) 650 mg [place] Q4H PRN PRN Acetaminophen (Tylenol) 325 - 650 mg PO Q4H PRN PRN Last Admin: 12/19/17 15:34 Dose: 650 mg Acetaminophen (Tylenol) 650 mg PO TODAY [facility] Last Admin: 12/18/17 17:40 Dose: 650 mg Al Hydrox/Mg Hydrox/Simethicone (Mylanta Liquid) 30 ml PO Q2H PRN PRN Last Admin: 12/20/17 20:19 Dose: 30 ml Albuterol Sulfate (Proventil Updraft) 2.5 mg UPD Q2H PRN PRN Dimethicone/Zinc Oxide (Yudi Protect Cream) 0 gm TP PRN PRN Docusate Sodium (Colace) 100 mg PO TID PRN PRN Hydromorphone HCl (Dilaudid) 2 mg PO Q4H PRN PRN PRN Reason: Pain Sodium Chloride (Saline 1000ml Bag) 1,000 mls @ 50 mls/hr IV INFUSION [facility] Last Admin: 12/20/17 22:59 Dose: 50 mls/hr Sodium Chloride (Saline 500ml Bag) 500 mls @ 0 mls/hr IV PRN PRN PRN Reason: As Directed Last Admin: 12/18/17 22:51 Dose: 50 mls/hr IV Miscellaneous Supplies () 1 each IV DIRECTED [facility] Magnesium Hydroxide (Milk Of Magnesia) 30 ml PO DAILY PRN PRN Metoprolol Tartrate (Lopressor) 25 mg PO Q8H [facility] Last Admin: 12/21/17 06:06 Dose: 25 mg Miscellaneous (Remove Patch) 1 each TP DAILY [facility] Last Admin: 12/20/17 08:15 Dose: 1 each Morphine Sulfate () 2 mg IVP Q2H PRN PRN Last Admin: 12/17/17 23:29 Dose: 2 mg Nicotine (Nicoderm Cq) 14 mg TD DAILY PRN PRN Last Admin: 12/20/17 08:13 Dose: 14 mg Nicotine (Nicotrol) 10 mg IH Q2H PRN PRN Last Admin: 12/18/17 14:57 Dose: 10 mg Polyethylene Glycol (Miralax) 17 gm PO DAILY PRN PRN PRN Reason: Constipation Sodium Bicarbonate () 650 mg PO TID [facility] Last Admin: 12/20/17 20:19 Dose: 650 mg Sodium Chloride (Saline Flush 10 Ml Syringe) 0 ml IVP PRN PRN Last Admin: 12/17/17 23:30 Dose: 10 ml Trimethobenzamide HCl (Tigan) 300 mg PO BID PRN PRN PRN Reason: Nausea Objective - Exam Vitals and I&O: Vital Signs Temp 37.1 C 12/21/17 03:07 Pulse 88 12/21/17 03:07 Resp 18 12/21/17 03:07 BP 136/88 12/21/17 03:07 Pulse Ox 98 12/21/17 03:07 Intake & Output 12/20/17 12/20/17 12/21/17 11:59 23:59 11:59 Intake Total 870 1053 366 Output Total 1400 1560 1350 Balance -530 -507 -984 Weight 59.5 kg 61.4 kg Intake: IV 820 563 366 Oral 50 490 Output: Drainage 275 Left Lower Back 25 Right Lower Back 250 Urine 1125 1560 1350 Other: Urine Color Dark Red Dark Red [place] Urine Appearance Hematuria Hematuria Clear Urine Odor None None Comment no clots present. Pt only had 10 cc of bloody urine from left nephrostomy, 325 from right nephrostomy. Clots present in right, none in left. Right nephrostomy tube: 1100 Left Nephrostomy tube: 50 Stool Size Large Moderate Moderate Stool Characteristics Soft Liquid Liquid Brown Brown Bloody Voiding Methods Bedside Commode Urinal General: Alert, Cooperative, No acute distress Other physical findings: right neph tube with clear urine - darker urine on left - Results Results: Laboratory Results WBC 11.59 k/cumm (4.4-10.8) H 12/21/17 06:20 RBC 3.54 m/cumm (4.50-6.00) L 12/21/17 06:20 Hgb 9.8 g/dL (13.5-17.5) L 12/21/17 06:20 Hct 30.5 % (40.0-50.0) L 12/21/17 06:20 MCV 86.2 fL (80-95) 12/21/17 06:20 MCH 27.7 pg (27.0-33.0) 12/21/17 06:20 MCHC 32.1 g/dL (32.0-36.0) 12/21/17 06:20 RDW 17.2 % (11.8-14.1) H 12/21/17 06:20 Plt Count 427 x1000/uL (130-400) H 12/21/17 06:20 MPV 9.5 fL (8.0-11.0) 12/21/17 06:20 Immature Gran % 0.3 12/21/17 06:20 Neutrophils % 73.2 12/21/17 06:20 Lymphocytes % 11.0 12/21/17 06:20 Monocytes % 11.8 12/21/17 06:20 Eosinophils % 3.4 12/21/17 06:20 Basophils % 0.3 12/21/17 06:20 Absolute Neutrophils 8.48 k/cumm (1.2-6.7) H 12/21/17 06:20 Absolute Lymphocytes 1.27 k/cumm (1.2-3.4) 12/21/17 06:20 Absolute Monocytes 1.37 k/cumm (0.11-0.7) H 12/21/17 06:20 Absolute Eosinophils 0.39 k/cumm (0.0-0.7) 12/21/17 06:20 Absolute Basophils 0.03 k/cumm (0.0-0.2) 12/21/17 06:20 Differential Comment Rbc morph reviewed 12/15/17 10:39 RBC Morphology See below 12/15/17 10:39 Polychromasia Present 12/15/17 10:39 Hypochromasia 3+ 12/15/17 10:39 Poikilocytosis 1+ 12/15/17 10:39 Anisocytosis 1+ 12/15/17 10:39 Microcytosis 2+ 12/15/17 10:39 Ovalocytes 2+ 12/15/17 10:39 Sodium 142 mmol/L (136-145) 12/20/17 06:35 Potassium 4.2 mmol/L (3.5-5.1) 12/20/17 06:35 Chloride 110 mmol/L (98-107) H 12/20/17 06:35 Carbon Dioxide 16.4 mmol/L (21.0-32.0) L 12/20/17 06:35 Anion Gap 15.6 mmol/L (3-11) H 12/20/17 06:35 BUN 73 mg/dL (7-18) H 12/20/17 06:35 Creatinine 6.68 mg/dL (0.70-1.30) H* 12/20/17 06:35 Estimated GFR/1.73 m2 8.46 (mL/min/1.73m2) 12/20/17 06:35 Glucose 72 mg/dL (70-100) D 12/20/17 06:35 Calcium 8.2 mg/dL (8.5-10.1) L 12/20/17 06:35 Total Bilirubin 0.4 mg/dL (0.2-1.0) 12/16/17 06:10 AST 7 U/L (15-37) L 12/16/17 06:10 ALT 10 U/L (12-78) L 12/16/17 06:10 Alkaline Phosphatase 96 U/L (46-116) 12/16/17 06:10 Troponin I 0.21 ng/mL (0.00-0.06) H 12/18/17 07:00 Total Protein 6.1 g/dL (6.4-8.2) L 12/16/17 06:10 Albumin 2.6 g/dL (3.4-5.0) L 12/16/17 06:10 Lipase 193 U/L (73-393) 12/15/17 10:39 TSH 1.70 uIU/mL (0.358-3.74) 12/15/17 10:39 Urine Color Red (Yellow) 12/15/17 13:30 Urine Clarity Cloudy 12/15/17 13:30 Urine pH 6.0 (5-8) 12/15/17 13:30 Ur Specific [place] 1.020 (1.005-1.025) 12/15/17 13:30 Urine Protein >=300 mg/dL (Negative) H 12/15/17 13:30 Urine Ketones Negative mg/dL (Negative) 12/15/17 13:30 Urine Blood Large (Negative) H 12/15/17 13:30 Urine Nitrite Negative (Negative) 12/15/17 13:30 Urine Bilirubin Negative (Negative) 12/15/17 13:30 Urine Urobilinogen 0.2 EU/dL (Up TO 0.2) 12/15/17 13:30 Ur Leukocyte Esterase Trace (Negative) H 12/15/17 13:30 Urine RBC >50 (0-2) H 12/15/17 13:30 Urine WBC Not Applicable 12/15/17 13:30 Ur Epithelial Cells Not Applicable 12/15/17 13:30 Urine Crystals Not Applicable 12/15/17 13:30 Urine Bacteria Not Applicable 12/15/17 13:30 Urine Mucus Not Applicable 12/15/17 13:30 Ur Culture Indicated? C&s done as ordered 12/15/17 13:30 Urine Glucose Negative mg/dL (Negative) 12/15/17 13:30 Patient ABO/Rh O Positive 12/18/17 15:45 Antibody Screen Negative 12/18/17 15:45 Crossmatch See Detail 12/18/17 15:45 Reaction Clerical Check No clerical errors 12/15/17 10:39 Clerical Work Check None 12/15/17 10:39 Pre-Trans Blood Type O Positive 12/15/17 10:39 Pre-Trans Bld Appearanc No hemolysis/icterus 12/15/17 10:39 Pre-Trans BRITNEY Not Applicable 12/15/17 10:39 Post-Trans Blood Type O Positive 12/15/17 10:39 Post-Trans Spec Appear No hemolysis/icterus 12/15/17 10:39 Post-Trans BRITNEY Negative 12/15/17 10:39 Reaction Pathol Review Negative-complete 12/15/17 10:39
[2017-12-21] MEDS: Nicotine 14 MG/24 HR PATCH TD (07:23)
[2017-12-21] MEDS: Sodium Bicarbonate 650 MG TAB PO ×3 (07:23→19:42)
--- NOTE | 2017-12-21 07:30 | MERGE_ITS ---
*[facility]* *[facility]* [address] [place] [address] Date of study: 12/21/2017 Transthoracic Echocardiography M-mode, complete 2D, complete spectral Doppler, and color Doppler *STUDY CONCLUSIONS* Impressions: Ischemic cardiomyopathy. Summary: 1. Left ventricle: The cavity size was normal. There was mild focal basal hypertrophy of the septum. Systolic function was moderately reduced. The estimated ejection fraction was 35-40%. Diffuse hypokinesis with regional variations. Severe hypokinesis of the mid-apicalanterior myocardium. Severe hypokinesis of the entireanterolateral and inferolateral myocardium. 2. Aortic valve: There was mild regurgitation. 3. Mitral valve: Tethering of the anterior leaflet. There was moderate regurgitation directed posteriorly. 4. Right ventricle: The cavity size was normal. Wall thickness was normal. Systolic function was normal. *PATIENT PRESENTATION* Height: 175.3cm ((69in) ) S/D Pressure: 136 / 88 Weight: 59.4kg ((130.7lb) ) BSA: 1.69m^2 Test start time: 07:43 AM. Test stop time: 08:35 AM. PERFORMING Unknown PERFORMING Nv ORDERING Danny Dowell REFERRING Danny Dowell TOOL TENDER RT Ngoc (R)(CT), MOI *PROCEDURE DATA* Procedure information: The patient was identified by two identifiers. This study was interpreted by [facility]. Pertinent images and digital data are archived for permanent storage and are available for subsequent review. No prior study was available for comparison. Study status: Routine. Transthoracic echocardiography. M-mode, complete 2D, complete spectral Doppler, and color Doppler. A Transthoracic Echocardiogram was performed. Scanning was performed from the parasternal, apical, subcostal, and suprasternal notch acoustic windows. Images were obtained using an [id number] cardiac ultrasound machine. Image quality was adequate. Study completion: The patient tolerated the procedure well. There were no complications. History: PMH: NSTEMI, CHARISSE, eval LV function. *CARDIAC ANATOMY* Left ventricle: The cavity size was normal. There was mild focal basal hypertrophy of the septum. Systolic function was moderately reduced. The estimated ejection fraction was 35-40%. Diffuse hypokinesis with regional variations. Regional wall motion abnormalities: Severe hypokinesis of the mid-apicalanterior myocardium. Severe hypokinesis of the entireanterolateral and inferolateral myocardium. Aortic valve: Trileaflet; normal thickness leaflets. Mobility was not restricted. Doppler: Transvalvular velocity was within the normal range. There was no stenosis. There was mild regurgitation. VTI ratio of LVOT to aortic valve: 0.86. Valve area (VTI): 2.8cm^2. Indexed valve area (VTI): 1.6cm^2/m^2. Peak velocity ratio of LVOT to aortic valve: 0.77. Valve area (Vmax): 2.5cm^2. Indexed valve area (Vmax): 1.5cm^2/m^2. Mean velocity ratio of LVOT to aortic valve: 0.64. Valve area (Vmean): 2.1cm^2. Indexed valve area (Vmean): 1.2cm^2/m^2. Mean gradient (S): 2.2mm Hg. Peak gradient (S): 3.5mm Hg. Aorta: Aortic root: The aortic root was normal in size. Ascending aorta: The ascending aorta was normal in size. Mitral valve: Mildly thickened leaflets. Tethering of the anterior leaflet. Mobility was not restricted. Doppler: Transvalvular velocity was within the normal range. There was no evidence for stenosis. There was moderate regurgitation directed posteriorly. Valve area by pressure half-time: 5.3cm^2. Indexed valve area by pressure half-time: 3.1cm^2/m^2. Peak gradient (D): 2.4mm Hg. Left atrium: The atrium was normal in size. Right ventricle: The cavity size was normal. Wall thickness was normal. Systolic function was normal. Pulmonic valve: Doppler: Transvalvular velocity was within the normal range. There was no evidence for stenosis. There was no significant regurgitation. Peak gradient (S): 3.6mm Hg. Tricuspid valve: Structurally normal valve. Doppler: Transvalvular velocity was within the normal range. There was no evidence for stenosis. There was mild regurgitation. Pulmonary artery: Systolic pressure could not be accurately estimated. Right atrium: The atrium was normal in size. Pericardium: There was no pericardial effusion. Systemic veins: Inferior vena cava: Well visualized. The vessel was patent and normal in size. The respirophasic diameter changes were in the normal range (greater than or equal to 50%). Measurements Left ventricle Value Reference LV ID, ED, PLAX 5.2 cm 3.5 - 6.0 LV ID, ES, PLAX (H) 4.1 cm 2.1 - 4.0 LV PW thickness, ED, PLAX 1.0 cm LV end-diastolic volume, 1-p A2C 104 ml LV ejection fraction, 1-p A2C 22 % LV end-diastolic volume, 1-p A4C 129 ml LV ejection fraction, 1-p A4C 39 % LV e', lateral 0.068 m/sec LV E/e', lateral 11 LV e', medial 0.054 m/sec LV E/e', medial 14 LV e', average 0.061 m/sec LV E/e', average 13 Ventricular septum Value Reference IVS thickness, ED, PLAX 1.2 cm LVOT Value Reference LVOT ID, A-P 2.0 cm LVOT area 3.2 cm^2 LVOT peak velocity, S 0.72 m/sec LVOT mean velocity, S 0.46 m/sec LVOT VTI, S 13.7 cm LVOT peak gradient, S 2.1 mm Hg LVOT mean gradient, S 1 mm Hg Stroke volume (SV), LVOT DP 44 ml Stroke index (SV/bsa), LVOT DP 26 ml/m^2 Aortic valve Value Reference Aortic valve peak velocity, S 0.9 m/sec Aortic valve mean velocity, S 0.73 m/sec Aortic valve VTI, S 15.9 cm Aortic mean gradient, S 2.2 mm Hg Aortic peak gradient, S 3.5 mm Hg VTI ratio, LVOT/AV 0.86 Aortic valve area, VTI 2.8 cm^2 Velocity ratio, peak, LVOT/AV 0.77 Aortic valve area, peak velocity 2.5 cm^2 Velocity ratio, mean, LVOT/AV 0.64 Aortic valve area, mean velocity 2.1 cm^2 Aortic valve area/bsa, mean velocity 1.2 cm^2/m^2 Aortic regurg deceleration 294 cm/s^2 Aortic regurg pressure half-time 352 ms Aorta Value Reference Aortic root ID, ED 3.3 cm RVOT Value Reference RVOT VTI, S 17.3 cm Left atrium Value Reference LA ID, A-P, ES 3.6 cm LA ID/bsa, A-P 2.1 cm/m^2 <=2.2 LA area, ES, A4C 16.1 cm^2 8.8 - 23.4 LA area, ES, A2C 21 cm^2 LA volume/bsa, ES, 1-p A4C 33 ml/m^2 LA volume, ES, 2-p 53 ml LA volume/bsa, ES, 2-p 31 ml/m^2 LA/aortic root ratio 1.09 Mitral valve Value Reference Mitral E-wave peak velocity 0.77 m/sec Mitral A-wave peak velocity 0.72 m/sec Mitral deceleration time (L) 143 ms 150 - 230 Mitral pressure half-time 42 ms Mitral peak gradient, D 2.4 mm Hg Mitral E/A ratio, peak 1.07 Mitral valve area, PHT, DP 5.3 cm^2 Mitral peak LV-LA gradient, S 121.4 mm Hg Mitral maximal regurg velocity, PISA 5.51 m/sec Mitral regurg VTI, PISA 195.3 cm Tricuspid valve Value Reference Tricuspid regurg peak velocity 2.4 m/sec Tricuspid peak RV-RA gradient 23.4 mm Hg Right atrium Value Reference RA area, ES, A4C 11.5 cm^2 8.3 - 19.5 Pulmonic valve Value Reference Pulmonic peak gradient, S 3.6 mm Hg Legend: (L) and (H) daniella values outside specified reference range. I have personally reviewed the images and have reviewed and edited the reported findings. Electronically signed by Pérez oRsales 12/21/2017 09:39
[2017-12-21 07:36] LABS: Anion Gap 14.7 mmol/L (3-11); BUN 71 mg/dL (7-18); CO2 15.3 mmol/L (21.0-32.0); Calcium 7.9 mg/dL (8.5-10.1); Chloride 111 mmol/L (98-107); Estimated GFR 8.76 (mL/min/1.73m2); Glucose 79 mg/dL (70-100); Potassium 4.4 mmol/L (3.5-5.1); Sodium 141 mmol/L (136-145)
[2017-12-21 07:47] LABS: CREATININE 6.48 mg/dL (0.70-1.30)
--- NOTE | 2017-12-21 10:52 | PDOC.CMPRO ---
Date of Service: 12/21/17 Time of Service: 10:52 Care Management Progress Note S/O: Cornelio is sitting up in the chair his friend Onofre is in the room he states it is okay to talk in front of him. Cornelio has been accepted at [facility] he will have his bladder procedure at [facility]. He will notify his family of his transfer and make arrangements for his son. CM to follow up with [facility] CM to hand off report. Patient is willing to be transferred and understands he will be transferred once a bed is available and will be transported via ambulance. A: Cornelio is a 62 year old male that was admitted with a bladder mass. Recent placement of bilateral nephrostomy tubes. Pending transition to [facility] to nephrology and urology services. P: Cornelio will be transferred to [facility] pending bed availability he is aware and will notify his family. Pt will be transferred via ambulance arranged by medical surgical [facility] when bed is available. CM to continue to provide support to patient and care team discharge disposition.
--- NOTE | 2017-12-21 11:22 | CMPROGNOTE_ITS ---
Date of Service: 12/21/17 Time of Service: 10:52 Care Management Progress Note S/O: Cornelio is sitting up in the chair his friend Onofre is in the room he states it is okay to talk in front of him. Cornelio has been accepted at [facility] he will have his bladder procedure at [facility]. He will notify his family of his transfer and make arrangements for his son. CM to follow up with [facility] CM to hand off report. Patient is willing to be transferred and understands he will be transferred once a bed is available and will be transported via ambulance. A: Cornelio is a 62 year old male that was admitted with a bladder mass. Recent placement of bilateral nephrostomy tubes. Pending transition to [facility] to nephrology and urology services. P: Cornelio will be transferred to [facility] pending bed availability he is aware and will notify his family. Pt will be transferred via ambulance arranged by [facility] when bed is available. CM to continue to provide support to patient and care team discharge disposition.
--- NOTE | 2017-12-21 17:34 | DSE_ITS ---
PROGRESS NOTE DATE: December 21, 2017 @ 1626 hours ASSESSMENT/PLAN: 1. Bladder mass - evidence of large bladder mass with likely chronic obstruction and bilateral hydron ephrosis. Bladder mass in patient with a lengthy history of smoking likely represents a neoplastic p rocess, currently with active bleeding noted. No specific evidence of metastatic disease, albeit rell er hypodensities need to be further characterized and worked up, with potential MRI if appropriate. Plan had been for transurethral resection of the bladder tumor with pathology. However, the patient was also discovered to have congestive heart failure, and deemed high-risk by local anesthesia. As s doctors hospital, Urology did not feel that he could safely undergo the procedure here. Patient was accepted by [facility], Dr. Pleitez as attending, with likely Medicine, Cardiol ogy and Nephrology consultations for completion of his care. Currently awaiting bed placement. 2. Acute kidney injury - acute kidney injury in the setting of obstructive uropathy. Mr. Rosas h as undergone bilateral nephrostomy tube placements, but his creatinine is improving marginally and sl owly. Creatinine does appear to be stable and has come down two points since admission. Continue to monitor closely. Electrolytes appear stable. No need for urgent dialysis at this time. Continue t o avoid nephrotoxins and renally-dosed medications when appropriate. 3. Elevated Troponin - minimal elevation of Troponin in the setting of significant anemia, as well as grossly elevated creatinine, likely represents demand with poor clearance due to depressed renal fun ction. However, given the patient's prior history and lack of medical care, underlying coronary disease wendi ot be excluded, especially in the setting of new diagnosis of heart failure. Currently appears to be stable, with further evaluation for underlying coronary disease following stabilization and treatmen t of his more acute medical conditions. 4. CHF - congestive heart failure with an ejection fraction of 35%. Cannot exclude underlying ischem ic cardiomyopathy as above, but also may be due to profound anemia and initial stress of acute illnes s. Currently appears euvolemic. Will start heart failure regimen with low-dose beta blockers with h old parameters. Hold off on any diuretic therapy in the setting of both acute kidney injury, as well as relatively euvolemic state. EDMUND inhibitors at this point will be contraindicated due to patient' s acute kidney injury. Will recommend a repeat echocardiogram soon as well. 5. Anemia - likely chronic blood loss due to bleeding bladder mass, with continued ongoing hematuria. Patient's initial hemoglobin was 4.2, status post transfusion. Hemoglobin has been stable in the 9 -10 range since his initial evaluation. Continue to monitor closely, with plans for resection of the bladder tumor soon. 6. Prophylaxis - SCD's with DVT prophylaxis contraindicated in the setting of acute bleeding. 7. Code status - patient is considered FULL CODE at this time. Please note that this Progress Note may be used as a Discharge Summary if the patient is accepted and transferred overnight. +++++++++++++++++ SUBJECTIVE: 62-year-old man without prior medical care admitted from [facility] Emergency Department on 12/15/2017 with noted significant weight loss and new onset anemia. Mr. Rosas has apparently been feeling unwell since approximately April or May of last year . He reportedly has a significant weight loss of approximately 70 pounds, and worsening dyspnea over time. He's noticed ongoing weakness with inability to perform his normal duties at home. Following urging from his family, he presented to the Emergency Department for further evaluation. Workup in the Emergency Department was significant for a profound anemia with a hemoglobin of 4.2, si gnificant kidney dysfunction with a creatinine of 8.5, mild elevation in Troponin, and evidence of he maturia following Giron catheter placement. A subsequent CT scan of the abdomen showed a 10 cm mass in the region of the bladder that appeared to be suspicious for malignancy. Also with a round, hypode nse mass in his liver. Mr. Rosas was initially accepted at [facility], but secondary to bed unav ailability he was admitted here. However, as his creatinine stabilized and without need for urgent d ialysis, the patient ended up staying here as per request from [facility]. He did undergo bilateral nephro stomy tube placements, and his creatinine has improved marginally over the course of hospitalization. He also had evidence of a mildly elevated Troponin, peaked at 0.67, but also in the setting of signif icant anemia as well as acute kidney injury. An echocardiogram was performed that showed evidence of heart failure with an ejection fraction of 35%, as well as a moderate amount of MR. Urology was consulted for a potential transurethral resection of the bladder tumor. However, it was thought that this procedure could not be safely performed here, and as such the patient was referred back to [facility] and readily accepted, currently awaiting bed placement. PAST MEDICAL HISTORY: No known prior history. PAST SURGICAL HISTORY: 1. Lumbar laminectomy x3. 2. Left ankle pinning. CURRENT WORKING DIAGNOSES: 1. Bladder mass, likely malignant, with bladder outlet obstruction. 2. Likely coronary artery disease. 3. Congestive heart failure without acute exacerbation. 4. Anemia, likely chronic blood loss due to bladder mass. 5. Acute kidney injury - either cyst or hepatic metastasis, not further characterized secondary to la ck of contrast. 6. Thickened left adrenal gland with follow-up recommended. 7. COPD by imaging. 8. Significant prior tobacco use. PHYSICAL EXAM: GENERAL: The patient appears quite comfortable, sitting out of bed in chair; no acute distress noted . VITALS: Temperature 37.3 and afebrile, blood pressure 130/89, heart rate 92, pulse oximetry 98% on r oom air. NECK: Supple. CARDIOVASCULAR: Regular, non-tachycardic; 3/6 left lower sternal border murmur appreciated. PULMONARY: Clear to auscultation bilaterally without crackles, rhonchi or wheezing. ABDOMEN: Bowel sounds appreciated; it's soft, nontender, nondistended. : Bilateral nephrostomy tubes in place. VASCULAR: No lower extremity edema. LABORATORY DATA: Sodium 141, potassium 4.4, chloride 111, bicarbonate 15.3, anion gap 14.7, BUN 71, down from an initi al value of 86, creatinine of 6.48, down from an initial value of 8.51. Troponin peaked at 0.67, ivy nded down to 0.21 last checked on 12/18/2017. CBC with a white count of 11.59, with a mild continued leukocytosis noted; hemoglobin 9.8, platelet c ount of 427,000. Urine culture with 10,000 to 50,000 colonies of a mixed gram positive aron. STUDIES: 1. CT chest, abdomen and pelvis dated 12/15/2017 - large mass involving the urinary bladder suspicious for neoplasm; possibility of a large infiltrative prostate carcinoma cannot be excluded. Resultant m arked bilateral hydronephrosis with mild left renal atrophy. Hypodense lesions seen within the liver ; they cannot be further characterized on this non-contrast examination; while these may represent cy sts, hepatic metastases cannot be excluded. Thickening of the left adrenal gland, follow-up recommen ded. MRI should be considered for further evaluation of these findings in the liver and adrenal glan ds. No evidence of thoracic metastatic disease. Severe emphysematous changes. 2. Echocardiogram performed 12/21/2017 - LV ejection fraction of 35-40%. Diffuse hypokinesis with prisca onal variations. Severe hypokinesis of the mid apical anterior myocardium. Severe hypokinesis of th e entire anterolateral and inferolateral myocardium. Mild aortic regurgitation, moderate mitral regu rgitation. Right ventricle with normal systolic function and size.
[2017-12-21] MEDS: Metoprolol 25 MG TAB 37.5 MG PO (19:09)
[2017-12-21] MEDS: Carvedilol 3.125 MG TAB PO (19:42)
== END 2017-12-21 20:42 | disposition short-term general hospital (02) | DRG 686 ==
LOC: ER 03-17 22:00 → MS 03-17 22:00
PROVIDERS: Internal Medicine; Admitting Provider Family Medicine; Emergency Provider Student in an Organized Health Care Education/Training Program; PCP Nurse Practitioner; Visit Provider Internal Medicine
DX: C67.8 Malignant neoplasm of overlapping sites of bladder (principal); I21.A1 Myocardial infarction type 2; N13.8 Other obstructive and reflux uropathy; N17.9 Acute kidney failure, unspecified; N13.4 Hydroureter; E87.2 Acidosis; D37.6 Neoplasm of uncertain behavior of liver, gallbladder and bile ducts; I08.0 Rheumatic disorders of both mitral and aortic valves; I51.89 Other ill-defined heart diseases; D50.0 Iron deficiency anemia secondary to blood loss (chronic); K40.90 Unilateral inguinal hernia, without obstruction or gangrene, not specified as recurrent; N43.3 Hydrocele, unspecified; R31.0 Gross hematuria; F17.210 Nicotine dependence, cigarettes, uncomplicated; N18.9 Chronic kidney disease, unspecified; Z43.6 Encounter for attention to other artificial openings of urinary tract; I50.9 Heart failure, unspecified
CPT/HCPCS: 36415; 36430; 51702; 71250; 80048; 80053; 83690; 85027; 86850; 86900; 86901; 86920; 93005; 96360; 99285; 74176; 81003; 81015; 82272; 84443; 84484; 85014; 85018; 85025; 86880; 87086; 93010; 93306; 99223; 99232; 99233; A0425; A0427; J3490; P9012; P9016

== ENCOUNTER 2017-12-27 18:27 | Emergency (ER) | payer MEDICAID, SELFPAY ==
[2017-12-27 18:31] VITALS: BP 121/84; PULSE 101; RESP 18; TEMP 37; O2SAT 100
--- NOTE | 2017-12-27 18:59 | ED.GENADUL ---
Disposition Clinical Impression: Pelvic mass in male, Acute renal failure Disposition: HOME Condition: Fair Additional Instructions: Continue to encourage hydration. May try nasal saline to help with postnasal drip. Use Zofran as prescribed to help with nausea. I have placed a palliative care consult. You should hear from her patient care director regarding this. Please keep upcoming appointment for PET scan and a cardiology follow-up. If you develop fever/chills, increased pain, increased weakness or the new/worsening symptoms please seek care urgently once again. Prescriptions: Ondansetron ODT [Zofran Odt] 4 mg PO Q6H PRN #10 tabef PRN Reason: Nausea Referrals: Maggie Garay [Primary Care Provider] - Medical Decision Making - Lab Data Laboratory Tests 12/27/17 12/27/17 12/27/17 19:06 19:06 19:06 WBC 11.01 H RBC 3.78 L Hgb 10.3 L Hct 32.9 L MCV 87.0 MCH 27.2 MCHC 31.3 L RDW 17.2 H Plt Count 627 H D MPV 9.5 Immature Gran % 0.5 Neutrophils % 68.3 Lymphocytes % 15.5 Monocytes % 10.3 Eosinophils % 4.9 Basophils % 0.5 Absolute Neutrophils 7.52 H Absolute Lymphocytes 1.71 Absolute Monocytes 1.13 H Absolute Eosinophils 0.54 Absolute Basophils 0.06 Differential Comment Rbc morph reviewed RBC Morphology See below Polychromasia Present Hypochromasia 2+ Poikilocytosis 2+ Anisocytosis 2+ Ovalocytes 2+ Sodium 143 Potassium 4.9 Chloride 108 H Carbon Dioxide 21.7 Anion Gap 13.3 H BUN 44 H Creatinine 5.08 H* Estimated GFR/1.73 m2 11.60 Glucose 118 H Calcium 8.7 Magnesium 1.4 L Total Bilirubin 0.2 AST 11 L ALT 7 L Alkaline Phosphatase 86 Troponin I < 0.02 Total Protein 7.0 Albumin 2.6 L Patient ABO/Rh O Positive Antibody Screen Negative Results reviewed for labs ordered during visit: Yes - Medical Decision Making Patient presents today with continued nausea and vomiting. Patient was recently hospitalized for bladder mass, severe anemia and elevated troponin. Please see HPI and previous notes for further information on this. On today's exam, he is not endorsing any pain. He continues to appear pale and fatigued. Patient is quite cachectic. He does report that his lost 70 pounds. I will obtain information from [facility] regarding his recent admission and review labs as well as pathology. We will obtain repeat laboratory evaluation at this time including CBC, CMP, troponin. I discussed this plate plan with the patient was in agreement. He will receive IV hydration as he does appear dry on exam. 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 He advises focally invasive into the lamina propria area and smooth muscle fascia fascicles. No definite muscularis propria invasion is seen. I did relate this information to the patient and his family. Laboratory evaluation Appears to be completely improving from recent admission. White count is 11.01, this is down trending slightly. Hemoglobin is 10.3. At the time of discharge his hemoglobin was 10.4. Platelet count is elevated at 627, patient has been elevated historically. Creatinine is 5.08. This is down from 5.4 for the time of discharge from [facility]. BUN is 44, this is also downtrending from discharge BUN of 62. Troponin is normal at less than 0.02. Discussed the patient's primary concern of nausea and vomiting further with the patient and his family. This sounds to be primarily induced by coughing. Patient feels that the coughing is secondary to thick mucus running down the back of his throat. Is questioning if he has a sinus infection. However, patient is not endorsing any sinus pain. Symptoms have also been going on for the past 6 months. Advised that this does not sound to be driven from sinusitis. We discussed [id number] home remedies to help with this postnasal drip. In particular, I advised [place] pot or nasal saline to help flush this out. She will be given antiemetic to help with his nausea. Patient is also in agreement with palliative consult being placed. Patient has close follow-up scheduled for this week with PET scan, stress test as well as follow-up with urology and cardiology. Advised he keep all of these appointments. I am concerned that some of this cough may also be associated with emphysema which was noted on CT scan. No mass was noted in the lungs but PET scan is scheduled. We discussed new/worsening symptoms and when to seek care urgently once again. At this point, while his laboratory evaluation remains abnormal at this point to be improving. All of his questions and concerns were addressed and they are in agreement with this plan. History of Present Illness - General Chief complaint: Nausea/Vomit/Diar Stated complaint: KIDNEY PAIN Time Seen by Provider: 12/27/17 18:30 Source: patient, family, RN notes reviewed Mode of arrival: ambulatory Limitations: no limitations - History of Present Illness Initial comments: Patient is a 63-year-old male presenting today with chief complaint of nausea and vomiting. Patient was seen here on 12 15 at which time he was admitted for anemia with hemoglobin of 4, acute kidney injury, elevated troponin and bladder mass. Elevated troponin was thought to be secondary to significant anemia. Patient was kept here for 6 days after which time he was transferred to [facility] for bladder biopsy. Patient had been having hematuria. He lost approximately 70 pounds over the past 6 months. Pathology is still pending on bladder mass although [facility] is concerned that this likely malignant and was causing bladder outlet obstruction leading to his acute kidney injury. Patient currently has bilateral percutaneous nephrostomy tubes in place.. Patient reports that he was unable to seek care secondary to his work demands. Has history of 50+ year pack smoker. He reports that since being discharged from [facility] he has not been smoking but has been using nicotine patch. Patient presents again today with a primary concern for nausea and vomiting. He reports that this was part of his presenting complaint initially he does not feel this was addressed sufficiently at the time of discharge. Patient reports is primarily after eating particularly after coughing. Feels that he is having postnasal drip which is triggering gag reflex and causing him to vomit. He does report that he is able to keep some food and fluids down. He states that the weakness he had been experiencing has improved. Patient did receive multiple transfusions. - Related Data Acetaminophen 2 tab PO Q6H PRN 12/27/17 Atorvastatin [Lipitor] 80 mg PO DAILY 12/27/17 Docusate Sodium 1 cap BID 12/27/17 Metoprolol [Lopressor] 37.5 mg PO BID 12/27/17 Ondansetron ODT [Zofran Odt] 4 mg PO Q6H PRN #10 tabef 12/27/17 OxyCODONE [Roxicodone Prepack] 1 tab PO Q4H PRN 12/27/17 Polyethylene Glycol 3350 [Miralax] 17 gm PO DAILY PRN 12/27/17 Sodium Bicarbonate 650 mg PO TID 12/27/17 Allergies Allergy/AdvReac Type Severity Reaction Status Date / Time Sulfa (Sulfonamide Allergy Intermediate Unverified 12/27/17 18:34 Antibiotics) Review of Systems Constitutional: see HPI, malaise. denies: chills, fever Eyes: denies: vision change Respiratory: no symptoms reported Cardiovascular: denies: chest pain, palpitations Gastrointestinal: denies: abdominal pain, nausea, vomiting, diarrhea Genitourinary: as per HPI Musculoskeletal: denies: back pain, joint swelling Skin: denies: rash, lesions, change in color Neurological: denies: headache Past Medical History - Past Medical History See HPI - Social History Smoking status: former smoker General Exam - General Limitations: no limitations General appearance: alert, in no apparent distress, cachectic - Head Head exam: Present: atraumatic - Eye Eye exam: Absent: normal apperance (Conjunctiva are pale) Pupils: Present: normal accommodation - ENT ENT exam: Present: mucous membranes dry - Respiratory Respiratory exam: Present: normal lung sounds bilaterally. Absent: respiratory distress - Cardiovascular Cardiovascular Exam: Present: regular rate, normal rhythm, normal heart sounds - GI/Abdominal GI/Abdominal exam: Present: soft, normal bowel sounds. Absent: distended, tenderness, guarding, rebound, mass - Rectal Rectal exam: Present: deferred - Extremities Exam Extremities exam: Present: normal inspection. Absent: joint swelling, calf tenderness - Back Exam Back exam: Present: other (Percutaneous nephrostomy tubes are visualized. Sites are without signs of infection. Dressings need to be reinforced) - Neurological Exam Neurological exam: Present: alert, normal gait - Psychiatric Psychiatric exam: Present: normal affect, normal mood - Skin Skin exam: Present: warm, dry. Absent: normal color (Pale) Course Vital Signs - 24 hr 12/27/17 18:31 Temperature 37.0 C Pulse 101 H Respiratory 18 Rate Blood Pressure 121/84 Pulse Oximetry 100
[2017-12-27 19:15] LABS: Abs Immature Grans 0.05 k/cumm (0.0-0.09); Absolute Eosinophil Count 0.54 k/cumm (0.0-0.7); Absolute Lymphocyte Count 1.71 k/cumm (1.2-3.4); Absolute Monocyte Count 1.13 k/cumm (0.11-0.7); Basophils % 0.5; Eosinophils % 4.9; HCT 32.9 % (40.0-50.0); HGB 10.3 g/dL (13.5-17.5); Immature Grans % 0.5; Lymphocytes % 15.5; Mean Corp. HGB Concentration 31.3 g/dL (32.0-36.0); Mean Corpuscular Hemoglobin 27.2 pg (27.0-33.0); Mean Platelet Volume 9.5 fL (8.0-11.0); Monocytes % 10.3; Neutrophils % 68.3; RBC 3.78 m/cumm (4.50-6.00); RBC Distribution Width 17.2 % (11.8-14.1); White Blood Cell Count 11.01 k/cumm (4.4-10.8)
[2017-12-27 19:16] LABS: Absolute Basophil Count 0.06 k/cumm (0.0-0.2); Absolute Neutrophil Count 7.52 k/cumm (1.2-6.7)
--- NOTE | 2017-12-27 19:19 | NUR.NOTE ---
Nursing Note: Pt and hearing for the first time tonight that his has confirmed cancer of the bladder/prostate. tearful and pt listening carefully to all information provided.
[2017-12-27] MEDS: Lactated Ringers 1,000 ML 200 ML IV (19:25)
[2017-12-27 19:30] LABS: ALT 7 U/L (12-78); AST 11 U/L (15-37); Albumin 2.6 g/dL (3.4-5.0); Alkaline Phosphatase 86 U/L (46-116); Anion Gap 13.3 mmol/L (3-11); BUN 44 mg/dL (7-18); Bilirubin, Total 0.2 mg/dL (0.2-1.0); CO2 21.7 mmol/L (21.0-32.0); Calcium 8.7 mg/dL (8.5-10.1); Chloride 108 mmol/L (98-107); Glucose 118 mg/dL (70-100); Magnesium 1.4 mg/dL (1.8-2.4); Potassium 4.9 mmol/L (3.5-5.1); Sodium 143 mmol/L (136-145)
[2017-12-27 19:34] LABS: CREATININE 5.08 mg/dL (0.70-1.30); Troponin I < 0.02 ng/mL (0.00-0.06)
[2017-12-27 19:39] LABS: Anisocytosis 2+; Diff Comment RBC Morph Reviewed; Hypochromasia 2+; Ovalocytes 2+; Platelet Count 627 x1000/uL (130-400); Poikilocytes 2+; Polychromasia Present
[2017-12-27] MEDS: Ondansetron O.D.T. 4 MG TABEF 12 MG PO (21:22)
--- NOTE | 2017-12-27 21:24 | NUR.NOTE ---
Nursing Note: Pt given full written instructions/ 12mg po Zofran and assisted to his car via WC. Pt has full understanding of his new dx and has all his appts set-up for further dx. Cath bags emptied for 230 cc urine.
[2017-12-27 21:27] VITALS: BP 116/80; PULSE 76; RESP 22; TEMP 36.4; O2SAT 98
--- NOTE | 2017-12-28 08:49 | PDOC.ERCMPRO ---
Care Management Progress Note CM recieved call from Yareli at [place] (P#[phone]) requesting disposition information on Cornelio who presented to [facility] ED yesterday, 12/27/17. SCOTTIE reviewed clinical information and faxed ED note to Yareli (F#[phone]).
--- NOTE | 2017-12-28 08:50 | CMPROGNOTE_ITS ---
Care Management Progress Note CM recieved call from Yareli at [place] (P#[phone]) requesting disposition information on Cornelio who presented to [facility] ED yesterday, 12/27/17. SCOTTIE reviewed clinical information and faxed ED note to Yareli (F#[phone]).
--- NOTE | 2017-12-28 09:06 | PDOC.ERCMPRO ---
Care Management Progress Note 12/28-Martine CARR requested assistance with a Palliative Care Consult as soon as possible for new cancer diagnosis, chronic nausea/vomiting. Referral faxed to Palliative Care Clinic this am.
== END 2017-12-27 21:18 | disposition home or self-care (01) ==
PROVIDERS: Physician Assistant; Emergency Provider Emergency Medicine; PCP Nurse Practitioner
DX: C67.9 Malignant neoplasm of bladder, unspecified (principal); N17.9 Acute kidney failure, unspecified; R11.2 Nausea with vomiting, unspecified; R09.82 Postnasal drip
CPT/HCPCS: 80053; 86850; 86900; 86901; 99283; 83735; 84484; 85025

== ENCOUNTER → 2018-01-03 00:28 | Outpatient (CLI) | payer MEDICAID, SELFPAY ==
--- NOTE | 2018-01-03 08:15 | MERGEMPI_ITS ---
*[facility]* *[facility]* [address] [place] [address] Myocardial Perfusion Imaging - SPECT [place] protocol Date of study: 01/03/2018 *PATIENT PRESENTATION* Height: 172.7cm (68in) Blood Pressure: Weight: 58.6kg (129lb) BSA: 1.67m^2 Referring physician: Stella Rios Ordering physician: Savanah Cheng Impressions: Normal perfusion by Tc99m Sestamibi Imaging. Summary: 1. Myocardial perfusion imaging: No myocardial perfusion defects noted. 2. Gated images uninterpretable. Indication: I25.5. History: Risk factors: Current tobacco use. ALLERGIES: SULFA. MEDICATIONS: ACETAMINOPHEN 650 MG Q6H NEEDED, ATORVASTATIN 80 MG DAILY, DOCUSTAE SODIUM 100 MG BID, METOPROLOL 37.5 MG BID, ONDANSETRON ODT 4 MG Q6H NEEDED, OXYCODONE 5 MG Q4H NEEDED, MIRALAX 17 GM DAILY NEEDED, SODIUM BICARBONARE 650 MG TID. Imaging Technique: Protocol: [place] protocol. Acquisition: Gated SPECT; 1 day - rest/stress. The patient was imaged in the supine position. Attenuation correction used. Isotope administration: - Rest. Tc[99m]-sestamibi. Dose: 10.3mCi. Injection time: 08:30 AM. Injection to stress time: 00:45. - Stress. Tc[99m]-sestamibi. Dose: 33mCi. Injection time: 10:05 AM. 1-2 min before end of exercise Baseline ECG: LAST EKG 12/16/17- SINUS TACHYCARDIA, HR 101. NONSPECIFIC ST DEPRESSION AND T ABNORMALITY. TODAY'S EKG- SINUS RHYTHM, HR 85. REASON FOR TESTING: PT HAD RECENTLY BEEN ADMITTED TO [facility] FOR A BLADDER MASS, ANEMIA, AND MINIMAL ELEBATION OF TROPONIN-0.67 MAX. TEST BEING DONE FOR PREOPERATIVE CLEARANCE. PMH: BLADDER MASS WITH BLADDER OUTLET OBSTRUCTION, LIKELY CAD, CHF, ANEMIA, ACUTE KIDNEY INJURY, COPD, LUMBAR LAMINECTOMY X3, LEFT ANKLE PINNING. FAMILY HX: FATHER-[place] X2-3. SMOKING:CURRENT DAILY SMOKER, 1/2PPD. DAILY MARIJUANA SMOKER. EXCERCISE: NO REGULAR EXCERCISE. Stress protocol: + +---+ +---+ + !Stage !HR !BP (mmHg) !Sat!Comments ! + +---+ +---+ + !Baseline supine !85 !120/80 (93)!---! ! + +---+ +---+ + !Baseline standing !94 !110/70 (83)!---! ! + +---+ +---+ + !Stage I; 1.7mph, 10degrees; 3 !110!110/70 (83)!87%! ! !min ! ! ! ! ! + +---+ +---+ + !Standing !110!110/70 (83)!---! ! + +---+ +---+ + !1 min !103!108/58 (75)!---!Inject ! ! ! ! ! !Regadenoson. ! + +---+ +---+ + !3 min !105!100/64 (76)!---! ! + +---+ +---+ + !6 min !103!104/66 (79)!---! ! + +---+ +---+ + !9 min !94 !94/60 (71) !---! ! + +---+ +---+ + * Stress results: The rate-pressure product for the peak heart rate and blood pressure was 70449tu Hg/min. Stress ECG: EXCERCISE TESTING ENDED IN 2 MINS, 43 SECS, DUE TO FATIGUE. MAX HR WAS 110, 69% OF TARGET. HYPOTENSIVE BLOOD PRESSURE RESPOSNE. METS:4.64 ECTOPY:NONE NOTED ANGINA: NO REPORTED CHEST PAIN OR PRESSURE ISCHEMIA: NO ISCHEMIC CHANGES NOTED. FUNCTIONAL CAPACITY: MARKEDLY DIMINISHED CAPACITY. PT UNABLE TO REACH TARGET, SWITCHED TO LEXISCAN PROTOCOL. LEXISCAN TESTING ENDED IN 9 MINS WHEN VS RETURNED TO BASELIND. MAX HR 110 WITH AN NORMAL BLOOD PRESSURE PRESONSE. ECTOPY: NONE NOTED. ANGINA: PT REPORTED 2/10 LEFT CHEST PAIN IN THE THIRD MINUTE OF TESTING. THIS DID DECREASE TO 1/10 IN MINUTE 5 AND TO 0/10 IN MINUTE 9. ISCHEMIA: NO ISCHEMIC CHANGES NOTED. Myocardial perfusion: Imaging information: gated. No myocardial perfusion defects noted. Ventricular Function (Wall Motion): Gated images uninterpretable. Study data: Bryce Wright MD supervised and was readily available during the procedure. This study was interpreted by [facility]. Study status: Routine. Consent: The risks, benefits, and alternatives to the procedure were explained to the patient and informed consent was obtained. Procedure: Initial setup. A baseline ECG was recorded. Surface ECG leads and manual cuff blood pressure measurements were monitored. Heart sounds: Normal. Lung sounds: Normal. Treadmill exercise testing was performed using the [place] protocol. Study completion: All catheters inserted during the procedure were removed. The patient tolerated the procedure well and was discharged from the lab. Discharge: The patient left the laboratory in stable condition. Birthdate: Patient birthdate: 1955. Sex: Gender: male. Study date: Study date: 01/03/2018. Study time: 12:30 PM. Electronically signed by Bryce Wright MD 01/03/2018 12:56
[2018-01-03 09:11] LABS: Anion Gap 5.5 mmol/L (3-11); BUN 47 mg/dL (7-18); CO2 27.5 mmol/L (21.0-32.0); Chloride 104 mmol/L (98-107); Estimated GFR 11.32 (mL/min/1.73m2); Glucose 136 mg/dL (70-100); Sodium 137 mmol/L (136-145)
[2018-01-03 09:22] LABS: CREATININE 5.19 mg/dL (0.70-1.30)
[2018-01-03] MEDS: Regadenoson 0.4 MG/5 ML SYR IVP (10:28)
== END ==
PROVIDERS: Surgery; PCP Nurse Practitioner; Visit Provider Nurse Practitioner Adult Health
DX: I25.5 Ischemic cardiomyopathy (principal); I25.2 Old myocardial infarction; F17.210 Nicotine dependence, cigarettes, uncomplicated; Z13.6 Encounter for screening for cardiovascular disorders; Z01.810 Encounter for preprocedural cardiovascular examination; C67.9 Malignant neoplasm of bladder, unspecified
CPT/HCPCS: 78452; 80048; 93017; J2785

== ENCOUNTER 2018-02-09 10:16 | Emergency (ER) | payer MEDICAID, SELFPAY ==
[2018-02-09] VITALS (14 sets, daily range): BP systolic 108–143; BP diastolic 69–87; PULSE 77–90; RESP 16–22; TEMP 36.7–38.1; O2SAT 93–100
--- NOTE | 2018-02-09 10:48 | W.ED.GENAD ---
Discharge Plan Disposition Patient Disposition: HOME Condition: Poor Discharge Details Chief Complaint: GenMedical Clinical Impression: Anemia Reason For Visit: general Primary Care Provider: LYDIA,LOCAL ED Provider: Martine Crawley Home Meds and New Rx's Prescriptions: Continue metoprolol tartrate 25 mg tablet 25 mg PO DAILY RF: 0 oxybutynin chloride 10 mg tablet extended release 24hr 10 mg PO DAILY RF: 0 carvedilol [Coreg] 3.125 mg tablet 3.125 mg PO BID RF: 0 atorvastatin [Lipitor] 80 MG tablet 80 mg PO DAILY RF: 0 acetaminophen 325 MG tablet 2 tab PO Q6H PRNRF: 0 polyethylene glycol 3350 17 GM powder in packet 17 gm PO DAILY PRNRF: 0 docusate sodium 100 MG capsule 1 cap BID RF: 0 OxyCODONE [Roxicodone Prepack] 5 MG Tab 1 tab PO Q4H PRNRF: 0 ondansetron 4 MG tablet,disintegrating 4 mg PO Q6H PRN (Reason: Nausea) Qty: 10 RF: 0 Discharge Instructions Instructions: Anemia (ED) Additional Instructions: Please follow-up with Dr. Florence tomorrow [phone]. She will have blood work rechecked next week. If you develop recurrent symptoms such as weakness, lightheadedness, shortness of breath or develop other new symptoms please seek care urgently once again Referrals: Tracy Roberson MD [ [facility] STAFF PHYSICIAN] - Discharge Data Discharge Date/Time-TO BE ENTERED AT DEPARTURE: 02/09/18 19:03 Medical Decision Making Patient presents today with chief complaint of shortness of breath. On exam he appears to be resting comfortably. However, when I visualized him walking into the department he did appear short of breath. He is quite pale on exam. Lungs are clear bilaterally. Blood pressures may be slightly low at 111/69. Vital signs otherwise within normal limits. Will obtain laboratory evaluation, EKG. Also concerned about the patient's continued gross hematuria. He reports that he is scheduled to have a cystectomy in 1 month. Contacted by the lab with a Hgb of 6.9 and HCT of 23.4. Remaining labs still pending. Plan to transfuse the patient with 2 units PRBC. Remaining labs unremarkable. Creatinine remains elevated at 4.00 but this is down from previous. Platelets are elevated but again this is compareable to previous. Patient received 2U of blood. Appears and feels much improved. Does not apear as fatigued. He has upcoming f/u appointment with palliative care but I asked that they try to move this up so that his labs may get rechecked in a more timely manor. reports that there is to be a meeting at [facility] tomorrow regrding patient's upcoming surgery at which time team of surgeons will discuss his case. At the beginning of his evaluation, when the Hgb was initially obtained, I asked the to contact them to let them know about his need for transfusion so that this may be discussed at tomorrows meeting. She was able to speak with nursing staff. Encouraged close f/u. We discussed new/worsening symptoms and when to seek care urgently once again. All of his quesitons and concerns were addressed, they are in agreement with this plan. HPI General Mode of arrival: ambulatory. Date/Time Provider Initiated Documentation: 02/09/18 10:38. Limitations to Documentation: no limitations. Information obtained by: patient and family. HPI Narrative: Patient is a 62-year-old male, currently being treated at [facility] for bladder cancer, presenting today with chief complaint of weakness and shortness of breath. Patient reports of the same sensation is what initially prompted him to seek care leading to his diagnosis. At that time, he was noted to be severely anemic and required transfusions which greatly helped his symptomatic management. This is not been transfused in the past several months. Patient is well-known to myself. Is working with palliative care noted him to be quite pale yesterday at home and easily winded. Advised that he be seen once again. Denies any chest pain. Reports the shortness of breath this subsided once he is been at rest for a bit of time. However, he reports that he needs to take a break even when getting dressed in the morning secondary to his shortness of breath. Patient has bilateral nephrostomy tubes. However, he continues to urinate 7x daily. States that he has gross hematuria and pain with urination. No pain at this time. States pain is only around time of urination. No CVA tenderness. Related Data Home Medications Medication Instructions Recorded Confirmed OxyCODONE [Roxicodone Prepack] 1 tab PO Q4H PRN 12/27/17 02/08/18 acetaminophen 2 tab PO Q6H PRN 12/27/17 02/08/18 atorvastatin [Lipitor] 80 mg PO DAILY 12/27/17 02/08/18 docusate sodium 1 cap BID 12/27/17 02/08/18 ondansetron 4 mg PO Q6H PRN #10 tabef 12/27/17 02/08/18 polyethylene glycol 3350 17 gm PO DAILY PRN 12/27/17 02/08/18 carvedilol 3.125 mg tablet 3.125 mg PO BID 02/08/18 02/08/18 metoprolol tartrate 25 mg tablet 25 mg PO DAILY tab 02/08/18 02/08/18 oxybutynin chloride ER 10 mg 10 mg PO DAILY 02/08/18 02/08/18 tablet,extended release 24 hr Previous Rx's Medication Instructions Recorded ondansetron 4 mg PO Q6H PRN #10 tabef 12/27/17 Allergies Allergy/AdvReac Type Severity Reaction Status Date / Time Sulfa (Sulfonamide Allergy Intermediate Unverified 12/27/17 18:34 Antibiotics) General Stated Complaint: GenMedical NAPOLEON: 3 Review of Systems Constitutional Reports as per HPI, Denies body ache(s), Denies chills, Reports fatigue, Denies fever(s), Denies headache(s), Reports poor appetite and Reports weakness ENT Denies headache(s) Cardiovascular Denies chest pain, Denies chest pain at rest, Denies chest pain with activity, Denies diaphoresis, Denies pedal edema, Denies claudication, Reports dyspnea and Reports dyspnea on exertion Respiratory Reports as per HPI, Denies cough, Reports dyspnea, Reports dyspnea on exertion and Denies wheezing Gastrointestinal Denies change in stool character Genitourinary Reports as per HPI (patient has bilateral nephrostomy tubes), Reports hematuria, Denies dysuria and Denies flank pain Musculoskeletal Denies back pain, Denies myalgias and Denies arthralgias Integumentary/Breasts Denies rash Neurologic Denies headache(s) and Reports weakness Endocrine Reports fatigue Allergic/Immunologic Denies wheezing PFSH Family History Mother No problems noted. Father No problems noted. Brother No problems noted. 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, [employer], 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, can't current occupational exposures/hazards: Yes Hx Recent Travel: No well-balanced diet: rarely or never eating out: rarely or never Smoking/Tobacco Use Status: Current every day tobacco type: cigarettes quit status: considering quitting counseling given: support program and counseling >3 minutes alcohol intake: former substance use type: marijuana seatbelt use: always drive intox or ride w/ intox courtesy driver: No working smoke detector in home: Yes fire extinguisher in home: No carbon monox detector in home: Yes firearms in home: Yes firearms unloaded and locked: No Surgical History History of ankle surgery (Acute) History of biopsy of bladder (Acute) Exam Const General: cooperative, not healthy appearing, comfortable, no acute distress, frail appearing and ill appearing (patient appears pale and fatigued) chronically Nutritional Appearance: cachectic Orientation: alert and awake Eyes Conjunctivae: conjunctival abnormality bilaterally pallor Resp Effort & Inspection: normal respiratory effort, able to speak in complete sentences and no respiratory distress Auscultation: clear to auscultation bilaterally, no rales and no rhonchi Cardio Rate: regular rate Rhythm: regular rhythm Heart Sounds: S1 normal and S2 normal GI Inspection: normal to inspection Palpation: not firm, no guarding, not rigid and nontender Back/Spine/Pelvis Back: no CVA tenderness (bilateral nephrostomy tubes, no surrounding erythema) Skin General skin exam: pallor Lesions: no lesions Rashes: no rashes Trauma: no lacerations or abrasions Neuro General: alert and awake Cognition: normal cognition Speech: speech normal Gait: normal gait (patient has good strength but does appear more winded than previous with ambulating into the department) Extrem General: no pedal edema and no calf tenderness Psych Appearance: grossly normal and well kempt Mental Status: mental status grossly normal Speech and Movement: speech and movement normal Mood: congruent mood Affect: normal affect Attitude: cooperative Course Vital Signs Temperature 36.7 C 02/09/18 10:32 Pulse 89 02/09/18 10:32 Respiratory Rate 16 02/09/18 10:32 Blood Pressure 111/69 02/09/18 10:32 Pulse Oximetry 98 02/09/18 10:32 Temperature 36.7 C 02/09/18 10:32 Temperature Source Tympanic 02/09/18 10:32 Pulse 89 02/09/18 10:32 Respiratory Rate 16 02/09/18 10:32 Blood Pressure 111/69 02/09/18 10:32 Blood Pressure Position Sitting 02/09/18 10:32 Pulse Oximetry 98 02/09/18 10:32 Oxygen Delivery Method Room Air 02/09/18 10:32 Oxygen Flow Rate 0 02/09/18 10:32
--- NOTE | 2018-02-09 10:51 | ED.GENADUL_ITS ---
Discharge Plan Disposition Patient Disposition: HOME Condition: Poor Discharge Details Chief Complaint: GenMedical Clinical Impression: Anemia Reason For Visit: general Primary Care Provider: LYDIA,LOCAL ED Provider: Martine Crawley Home Meds and New Rx's Prescriptions: Continue metoprolol tartrate 25 mg tablet 25 mg PO DAILY RF: 0 oxybutynin chloride 10 mg tablet extended release 24hr 10 mg PO DAILY RF: 0 carvedilol [Coreg] 3.125 mg tablet 3.125 mg PO BID RF: 0 atorvastatin [Lipitor] 80 MG tablet 80 mg PO DAILY RF: 0 acetaminophen 325 MG tablet 2 tab PO Q6H PRNRF: 0 polyethylene glycol 3350 17 GM powder in packet 17 gm PO DAILY PRNRF: 0 docusate sodium 100 MG capsule 1 cap BID RF: 0 OxyCODONE [Roxicodone Prepack] 5 MG Tab 1 tab PO Q4H PRNRF: 0 ondansetron 4 MG tablet,disintegrating 4 mg PO Q6H PRN (Reason: Nausea) Qty: 10 RF: 0 Discharge Instructions Instructions: Anemia (ED) Additional Instructions: Please follow-up with Dr. Florence tomorrow [phone]. She will have blood work rechecked next week. If you develop recurrent symptoms such as weakness, lightheadedness, shortness of breath or develop other new symptoms please seek care urgently once again Referrals: Tracy Roberson MD [ [facility] STAFF PHYSICIAN] - Discharge Data Discharge Date/Time-TO BE ENTERED AT DEPARTURE: 02/09/18 19:03 Medical Decision Making Patient presents today with chief complaint of shortness of breath. On exam he appears to be resting comfortably. However, when I visualized him walking into the department he did appear short of breath. He is quite pale on exam. Lungs are clear bilaterally. Blood pressures may be slightly low at 111/69. Vital signs otherwise within normal limits. Will obtain laboratory evaluation, EKG. Also concerned about the patient's continued gross hematuria. He reports that he is scheduled to have a cystectomy in 1 month. Contacted by the lab with a Hgb of 6.9 and HCT of 23.4. Remaining labs still pending. Plan to transfuse the patient with 2 units PRBC. Remaining labs unremarkable. Creatinine remains elevated at 4.00 but this is down from previous. Platelets are elevated but again this is compareable to previous. Patient received 2U of blood. Appears and feels much improved. Does not apear as fatigued. He has upcoming f/u appointment with palliative care but I asked that they try to move this up so that his labs may get rechecked in a more timely manor. reports that there is to be a meeting at [facility] tomorrow regrding patient's upcoming surgery at which time team of surgeons will discuss his case. At the beginning of his evaluation, when the Hgb was initially obtained, I asked the to contact them to let them know about his need for transfusion so that this may be discussed at tomorrows meeting. She was able to speak with nursing staff. Encouraged close f/u. We discussed new/worsening symptoms and when to seek care urgently once again. All of his quesitons and concerns were addressed, they are in agreement with this plan. HPI General Mode of arrival: ambulatory . Date/Time Provider Initiated Documentation: 02/09/18 10:38 . Limitations to Documentation: no limitations . Information obtained by: patient and family . HPI Narrative: Patient is a 62-year-old male, currently being treated at [facility] for bladder cancer, presenting today with chief complaint of weakness and shortness of breath. Patient reports of the same sensation is what initially prompted him to seek care leading to his diagnosis. At that time, he was noted to be severely anemic and required transfusions which greatly helped his symptomatic management. This is not been transfused in the past several months. Patient is well-known to myself. Is working with palliative care noted him to be quite pale yesterday at home and easily winded. Advised that he be seen once again. Denies any chest pain. Reports the shortness of breath this subsided once he is been at rest for a bit of time. However, he reports that he needs to take a break even when getting dressed in the morning secondary to his shortness of breath. Patient has bilateral nephrostomy tubes. However, he continues to urinate 7x daily. States that he has gross hematuria and pain with urination. No pain at this time. States pain is only around time of urination. No CVA tenderness. Related Data Home Medications Medication Instructions Recorded Confirmed OxyCODONE [Roxicodone Prepack] 1 tab PO Q4H PRN 12/27/17 02/08/18 acetaminophen 2 tab PO Q6H PRN 12/27/17 02/08/18 atorvastatin [Lipitor] 80 mg PO DAILY 12/27/17 02/08/18 docusate sodium 1 cap BID 12/27/17 02/08/18 ondansetron 4 mg PO Q6H PRN #10 tabef 12/27/17 02/08/18 polyethylene glycol 3350 17 gm PO DAILY PRN 12/27/17 02/08/18 carvedilol 3.125 mg tablet 3.125 mg PO BID 02/08/18 02/08/18 metoprolol tartrate 25 mg tablet 25 mg PO DAILY tab 02/08/18 02/08/18 oxybutynin chloride ER 10 mg 10 mg PO DAILY 02/08/18 02/08/18 tablet,extended release 24 hr Previous Rx's Medication Instructions Recorded ondansetron 4 mg PO Q6H PRN #10 tabef 12/27/17 Allergies Allergy/AdvReac Type Severity Reaction Status Date / Time Sulfa (Sulfonamide Allergy Intermediate Unverified 12/27/17 18:34 Antibiotics) General Stated Complaint: GenMedical NAPOLEON: 3 Review of Systems Constitutional Reports as per HPI, Denies body ache(s), Denies chills, Reports fatigue, Denies fever(s), Denies headache(s), Reports poor appetite and Reports weakness ENT Denies headache(s) Cardiovascular Denies chest pain, Denies chest pain at rest, Denies chest pain with activity, Denies diaphoresis, Denies pedal edema, Denies claudication, Reports dyspnea and Reports dyspnea on exertion Respiratory Reports as per HPI, Denies cough, Reports dyspnea, Reports dyspnea on exertion and Denies wheezing Gastrointestinal Denies change in stool character Genitourinary Reports as per HPI (patient has bilateral nephrostomy tubes), Reports hematuria , Denies dysuria and Denies flank pain Musculoskeletal Denies back pain, Denies myalgias and Denies arthralgias Integumentary/Breasts Denies rash Neurologic Denies headache(s) and Reports weakness Endocrine Reports fatigue Allergic/Immunologic Denies wheezing PFSH Family History Mother No problems noted. Father No problems noted. Brother No problems noted. 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, can't current occupational exposures/hazards: Yes Hx Recent Travel: No well-balanced diet: rarely or never eating out: rarely or never Smoking/Tobacco Use Status: Current every day tobacco type: cigarettes quit status: considering quitting counseling given: support program and counseling >3 minutes alcohol intake: former substance use type: marijuana seatbelt use: always drive intox or ride w/ 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 working smoke detector in home: Yes fire extinguisher in home: No carbon monox detector in home: Yes firearms in home: Yes firearms unloaded and locked: No Surgical History History of ankle surgery (Acute) History of biopsy of bladder (Acute) Exam Const General: cooperative, not healthy appearing, comfortable, no acute distress, frail appearing and ill appearing (patient appears pale and fatigued) chronically Nutritional Appearance: cachectic Orientation: alert and awake Eyes Conjunctivae: conjunctival abnormality bilaterally pallor Resp Effort & Inspection: normal respiratory effort, able to speak in complete sentences and no respiratory distress Auscultation: clear to auscultation bilaterally, no rales and no rhonchi Cardio Rate: regular rate Rhythm: regular rhythm Heart Sounds: S1 normal and S2 normal GI Inspection: normal to inspection Palpation: not firm, no guarding, not rigid and nontender Back/Spine/Pelvis Back: no CVA tenderness (bilateral nephrostomy tubes, no surrounding erythema) Skin General skin exam: pallor Lesions: no lesions Rashes: no rashes Trauma: no lacerations or abrasions Neuro General: alert and awake Cognition: normal cognition Speech: speech normal Gait: normal gait (patient has good strength but does appear more winded than previous with ambulating into the department) Extrem General: no pedal edema and no calf tenderness Psych Appearance: grossly normal and well kempt Mental Status: mental status grossly normal Speech and Movement: speech and movement normal Mood: congruent mood Affect: normal affect Attitude: cooperative Course Vital Signs Temperature 36.7 C 02/09/18 10:32 Pulse 89 02/09/18 10:32 Respiratory Rate 16 02/09/18 10:32 Blood Pressure 111/69 02/09/18 10:32 Pulse Oximetry 98 02/09/18 10:32 Temperature 36.7 C 02/09/18 10:32 Temperature Source Tympanic 02/09/18 10:32 Pulse 89 02/09/18 10:32 Respiratory Rate 16 02/09/18 10:32 Blood Pressure 111/69 02/09/18 10:32 Blood Pressure Position Sitting 02/09/18 10:32 Pulse Oximetry 98 02/09/18 10:32 Oxygen Delivery Method Room Air 02/09/18 10:32 Oxygen Flow Rate 0 02/09/18 10:32
--- NOTE | 2018-02-09 11:19 | ED.GENADUL_ITS ---
Discharge Plan Discharge Details Chief Complaint: GenMedical Reason For Visit: general Primary Care Provider: Maggie Garay ED Provider: Martine Crawley Home Meds and New Rx's Prescriptions: No Action metoprolol tartrate 25 mg tablet 25 mg PO DAILY RF: 0 oxybutynin chloride 10 mg tablet extended release 24hr 10 mg PO DAILY RF: 0 carvedilol [Coreg] 3.125 mg tablet 3.125 mg PO BID RF: 0 atorvastatin [Lipitor] 80 MG tablet 80 mg PO DAILY RF: 0 acetaminophen 325 MG tablet 2 tab PO Q6H PRNRF: 0 polyethylene glycol 3350 17 GM powder in packet 17 gm PO DAILY PRNRF: 0 docusate sodium 100 MG capsule 1 cap BID RF: 0 OxyCODONE [Roxicodone Prepack] 5 MG Tab 1 tab PO Q4H PRNRF: 0 ondansetron 4 MG tablet,disintegrating 4 mg PO Q6H PRN (Reason: Nausea) Qty: 10 RF: 0 Medical Decision Making ECG Data Attestation: I personally reviewed and interpreted this ECG (s) as follows: Interpretation: Normal sinus rhythm, rate of 92, the QRS is narrow, there are pre-standing T wave inversions without evidence of ST segment HPI General Mode of arrival: ambulatory . Date/Time Provider Initiated Documentation: 02/09/18 10:38 . Limitations to Documentation: no limitations . Information obtained by: patient and family . Related Data Home Medications Medication Instructions Recorded Confirmed OxyCODONE [Roxicodone Prepack] 1 tab PO Q4H PRN 12/27/17 02/08/18 acetaminophen 2 tab PO Q6H PRN 12/27/17 02/08/18 atorvastatin [Lipitor] 80 mg PO DAILY 12/27/17 02/08/18 docusate sodium 1 cap BID 12/27/17 02/08/18 ondansetron 4 mg PO Q6H PRN #10 tabef 12/27/17 02/08/18 polyethylene glycol 3350 17 gm PO DAILY PRN 12/27/17 02/08/18 carvedilol 3.125 mg tablet 3.125 mg PO BID 02/08/18 02/08/18 metoprolol tartrate 25 mg tablet 25 mg PO DAILY tab 02/08/18 02/08/18 oxybutynin chloride ER 10 mg 10 mg PO DAILY 02/08/18 02/08/18 tablet,extended release 24 hr Previous Rx's Medication Instructions Recorded ondansetron 4 mg PO Q6H PRN #10 tabef 12/27/17 Allergies Allergy/AdvReac Type Severity Reaction Status Date / Time Sulfa (Sulfonamide Allergy Intermediate Unverified 12/27/17 18:34 Antibiotics) General Stated Complaint: GenMedical NAPOLEON: 3 PFSH Family History Mother No problems noted. Father No problems noted. Brother No problems noted. 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, can't current occupational exposures/hazards: Yes Hx Recent Travel: No well-balanced diet: rarely or never eating out: rarely or never Smoking/Tobacco Use Status: Current every day tobacco type: cigarettes quit status: considering quitting counseling given: support program and counseling >3 minutes alcohol intake: former substance use type: marijuana seatbelt use: always drive intox or ride w/ intox 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 working smoke detector in home: Yes fire extinguisher in home: No carbon monox detector in home: Yes firearms in home: Yes firearms unloaded and locked: No Surgical History History of biopsy of bladder (Acute) History of ankle surgery (Acute) Course Vital Signs Temperature 36.7 C 02/09/18 10:32 Pulse 89 02/09/18 10:32 Respiratory Rate 16 02/09/18 10:32 Blood Pressure 111/69 02/09/18 10:32 Pulse Oximetry 98 02/09/18 10:32 Temperature 36.7 C 02/09/18 10:32 Temperature Source Tympanic 02/09/18 10:32 Pulse 89 02/09/18 10:32 Respiratory Rate 16 02/09/18 10:32 Respiratory Effort 02/09/18 10:53 Blood Pressure 111/69 02/09/18 10:32 Blood Pressure Position Sitting 02/09/18 10:32 Pulse Oximetry 98 02/09/18 10:32 Oxygen Delivery Method Room Air 02/09/18 10:32 Oxygen Flow Rate 0 02/09/18 10:32
[2018-02-09 11:34] LABS: Abs Immature Grans 0.07 k/cumm (0.0-0.09); Absolute Basophil Count 0.09 k/cumm (0.0-0.2); Absolute Lymphocyte Count 1.63 k/cumm (1.2-3.4); Absolute Neutrophil Count 7.17 k/cumm (1.2-6.7); Basophils % 0.8; Eosinophils % 12.4; HCT 23.4 % (40.0-50.0); Immature Grans % 0.6; Lymphocytes % 14.2; Mean Corp. HGB Concentration 29.5 g/dL (32.0-36.0); Mean Corpuscular Hemoglobin 27.8 pg (27.0-33.0); Mean Corpuscular Volume 94.4 fL (80-95); Mean Platelet Volume 9.1 fL (8.0-11.0); Monocytes % 9.6; Neutrophils % 62.4; Platelet Count 588 x1000/uL (130-400); RBC 2.48 m/cumm (4.50-6.00); RBC Distribution Width 18.5 % (11.8-14.1); White Blood Cell Count 11.49 k/cumm (4.4-10.8)
[2018-02-09 11:40] LABS: Absolute Eosinophil Count 1.42 k/cumm (0.0-0.7)
[2018-02-09 11:42] LABS: HGB 6.9 g/dL (13.5-17.5)
[2018-02-09 11:43] LABS: PTT Activated 29.4 sec (21.0-31.4); Prothrombin Time 10.2 sec (9.3-10.8)
[2018-02-09 11:48] LABS: ALT 12 U/L (12-78); AST 9 U/L (15-37); Albumin 2.8 g/dL (3.4-5.0); Alkaline Phosphatase 119 U/L (46-116); Anion Gap 8.6 mmol/L (3-11); BUN 35 mg/dL (7-18); Bilirubin, Total 0.2 mg/dL (0.2-1.0); CO2 27.4 mmol/L (21.0-32.0); Calcium 9.3 mg/dL (8.5-10.1); Chloride 104 mmol/L (98-107); Estimated GFR 15.29 (mL/min/1.73m2); Glucose 103 mg/dL (70-100); Magnesium 2.1 mg/dL (1.8-2.4); Potassium 4.5 mmol/L (3.5-5.1); Sodium 140 mmol/L (136-145); Total Protein 7.2 g/dL (6.4-8.2)
[2018-02-09 11:50] LABS: Troponin I < 0.02 ng/mL (0.00-0.06)
[2018-02-09 11:51] LABS: Anisocytosis 2+; Diff Comment Diff Reviewed; Hypochromasia 2+; Ovalocytes 2+; Poikilocytes 1+; Polychromasia Present
[2018-02-09 12:48] LABS: D-Dimer 479 ng/mlFEU (<500)
--- NOTE | 2018-02-09 14:28 | NUR.NOTE ---
Nursing Note:1417: temperature change r/t warmed blanket on head
--- NOTE | 2018-02-09 14:43 | NUR.NOTE ---
1400: PT. TRANSFERRED FROM ER TO DSU TO RECEIVE 2 UNITS OF BLOOD. PT. VSS STABLE PRIOR TO INFUSION, BILATERAL LUNGS CLEAR & DIMINISHED TO AUSCULTATION, HEART SOUNDS REGULAR RATE AND RHYTHM NOTED. PT. DENIES SOB, NAUSEA, AND CHEST PAIN, PRESSURE, OR TIGHTNESS. BLOOD CONSENT SIGNED. Nursing Note:
--- NOTE | 2018-02-09 16:50 | NUR.NOTE ---
1445: previous 1430 vital signs, were suppose to be timed or 1445 vitals. [facility] would not allow this RN to edit time for proper documentation.Record displays dupilcate vitals under times 1430 and 1445 times Nursing Note:
[2018-02-09 17:32] LABS: Bilirubin Negative (Negative); Blood Large (Negative); Clarity Cloudy; Glucose Negative (Negative); Ketones Negative (Negative); Leukocyte Esterase Trace (Negative); Nitrite Negative (Negative); Urobilinogen 0.2 EU/dL (Up TO 0.2); pH 8.5 (5-8)
[2018-02-09 17:39] LABS: C & S Indicated? Yes
--- NOTE | 2018-02-09 17:42 | NUR.NOTE ---
1720: TRANSFERRED PT. BACK TO ER TO FINISH UP BLOOD TRANSFUSION. REPORTED OFF TO ANJEL SAPPRN @ 1723. PT. VSS STABLE, PT. DENIES CHEST PAIN, SOB, NAUSEA, AND GENERALIZED PAIN AT TIME OF TRANSFER. PT. AMBULATORY FOR TRANSFER TO ER. SECOND BAG CURRENTLY TRANSFUSING. JESSICA, ER NON DESTRUCTIVE TESTING SUPERVISOR TO CALL PT. FAMILY TO ALERT THEM OF PT. NEW LOCATION TRANSFER. Nursing Note:
== END 2018-02-09 19:03 | disposition home or self-care (01) ==
PROVIDERS: Emergency Provider Physician Assistant
DX: R06.02 Shortness of breath (principal); D63.0 Anemia in neoplastic disease; C67.9 Malignant neoplasm of bladder, unspecified
CPT/HCPCS: 36415; 80053; 86850; 86900; 86901; 86920; 87077; 93005; 96365; 96366; 99284; 81003; 81015; 83735; 84484; 85025; 85379; 85610; 85730; 87086; 87186; 93010; P9016

== ENCOUNTER 2018-02-22 12:01 | Inpatient (IN) | payer MEDICAID, SELFPAY ==
[2018-02-22] VITALS (83 sets, daily range): BP systolic 91–152; BP diastolic 54–89; PULSE 82–124; RESP 10–31; TEMP 36.8–40.4; O2SAT 89–100
--- NOTE | 2018-02-22 12:23 | W.ED.GENAD ---
Discharge Plan Disposition Patient Disposition: [facility] INPATIENT Condition: Stable Discharge Details Chief Complaint: GenMedical Clinical Impression: Acute dehydration, Enteritis, Acute hyperkalemia, Anemia, Acute UTI, Renal failure Reason For Visit: DEHYDRATION Admit Date/Time: 02/22/18 15:52 Admit Provider: Alexandria Mayen Attending Provider: Alexandria Mayen Primary Care Provider: Francois Zepeda ED Provider: Derrek Woods Discharge Data Discharge Date/Time-TO BE ENTERED AT DEPARTURE: 02/22/18 17:08 Medical Decision Making This is a 62-year-old male with a past medical history of bladder cancer, obstructive uropathy, acute renal failure, who is scheduled to have surgery in the next 20 days. He presents for malaise, vomiting for the last 3-4 days, fatigue, generalized feelings of unwellness. Physical exam demonstrates a cachectic appearing female, notably pale, notably dehydrated. Reproducible right upper quadrant abdominal tenderness. Differential is broad especially with his surgeries for his nephrostomy tubes, and his underlying cancer. We will get a CT scan to evaluate for any acute process, perform laboratory workup to evaluate for cardiac or intra-abdominal or metabolic abnormalities. We will rehydrate. EKG 12: 25 Rate 111, HI 134, QTc 429, QRS 84, sinus tachycardia. No ST elevations or depressions. Inverted T wave in V1. No Q waves CT scan does show evidence of mild enteritis but no other acute process. I feel his enteritis, and vomiting was the main cause of his initial symptomatology which led to his dehydration and current clinical status. Patient's laboratory workup demonstrates no significant white count, hemoglobin of 6.9, notable evidence of an elevated creatinine suggestive of an acute kidney injury, and a BUN/creatinine ratio concerning for severe dehydration. Potassium is elevated at 5.5. Calcium gluconate, insulin, glucose, and albuterol were given for stabilization and decrease of the patient's potassium. He was rehydrated with over 2 L of normal saline. Urinalysis did show signs concerning for urinary tract infection and antibiotics were started. Initial lactate is 2.8, however blood pressure has normalized with the 2 L of normal saline and the 1 unit of packed red blood cells. I do not think the patient needs a 30 cc/kg bolus at this time his lactate is less than 4. Because of the patient's notable dehydration, anemia, and multiple comorbidities I contacted the hospitalist and discussed the case with Dr. Rabago who agreed for admission for the patient. I have extensively reviewed the treatment plan with the patient. I have addressed all patient concerns at this time. I have also discussed the plan with the admitting physician and they agree with the current assessment and plan and have agreed to assume responsibility for the patient. All parties demonstrate verbal understanding and agreement with our assessment and plan at this time. IMPRESSION: 1. Bowel wall thickening and loops of jejunum in the left upper quadrant suspicious for an enteritis. 2. Stable urinary bladder mass causing marked hydronephrosis bilaterally. Bilateral nephrostomy tubes, which are stable in position. 3. Large incompletely imaged hydrocele. HPI General Date/Time Provider Initiated Documentation: 02/22/18 12:18. HPI Narrative: This is a 62-year-old male with a past medical history of bladder cancer, who was scheduled to have surgery on the of this month, bilateral nephrostomy tubes as well as hypertension, cardiac disease. He presents today for complaint of malaise, dysuria, and vomiting for the last 4 days as well as a change in his nephrostomy tube output. Patient states that he has not been able to keep anything down. His vomitus is yellow, he denies any hematemesis. He denies any coffee grounds. He denies any abdominal pain, or discomfort. Nothing has improved or aggravated his vomiting symptoms. He does admit to a mild cough, but denies any hemoptysis. He denies any fever or chills. He has not been able to drink much over the last few days secondary to the vomiting. He has been able to still urinate, however he has noticed a significant decrease in his amount of urinary output, he is also noticed dysuria with urination. In addition to this his nephrostomy tubes bilaterally have been draining barely anything and while normally they are yellow and drainage, now they are green and filled with particulate matter. Patient has admitted to some occasional hematuria, however this is certainly more chronic than acute with his bladder cancer. He had a transfusion 2 weeks ago secondary to anemia, but denies any other complaints. He denies any hematochezia, melena, acholic stool. Patient denies any blood thinner use. He has no other complaints at this time. Related Data Home Medications Medication Instructions Recorded Confirmed OxyCODONE [Roxicodone Prepack] 1 tab PO Q4H PRN 12/27/17 02/22/18 acetaminophen 2 tab PO Q6H PRN 12/27/17 02/22/18 atorvastatin [Lipitor] 80 mg PO DAILY 12/27/17 02/22/18 docusate sodium 1 cap BID 12/27/17 02/22/18 ondansetron 4 mg PO Q6H PRN #10 tabef 12/27/17 02/22/18 polyethylene glycol 3350 17 gm PO DAILY PRN 12/27/17 02/22/18 carvedilol 3.125 mg tablet 3.125 mg PO BID 02/08/18 02/22/18 Previous Rx's Medication Instructions Recorded ondansetron 4 mg PO Q6H PRN #10 tabef 12/27/17 Allergies Allergy/AdvReac Type Severity Reaction Status Date / Time Sulfa (Sulfonamide Allergy Intermediate deathly Unverified 02/22/18 12:54 Antibiotics) sick and rash metoprolol AdvReac Intermediate Itching Unverified 02/22/18 12:45 sodium bicarbonate AdvReac Intermediate stomach Unverified 02/22/18 12:54 burning, vomitting General Stated Complaint: GenMedical [place]: 2 Review of Systems Review of Systems All systems reviewed & are unremarkable except as noted in HPI and below PFSH Family History Mother No problems noted. Father No problems noted. Brother No problems noted. 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, [employer], 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, can't current occupational exposures/hazards: Yes Hx Recent Travel: No well-balanced diet: rarely or never eating out: rarely or never Smoking/Tobacco Use Status: Current every day tobacco type: cigarettes quit status: considering quitting counseling given: support program and counseling >3 minutes alcohol intake: former substance use type: marijuana seatbelt use: always drive intox or ride w/ intox 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 3.ENT: Atraumatic external nose and ears. Notably dry MM. Neck: Symmetric, trachea midline, No thyromegaly. 4.CVS: +S1/S2, No murmurs or gallops. Peripheral pulses 2+ and equal in all extremities. Brisk capillary refill in all extremities. 5.RESP: Unlabored respiratory effort. Rales and rhonchi throughout. No significant wheezes 6.GI: Soft, Nondistended, No hepatosplenomegaly. No guarding or rebound. Mild reproducible tenderness in the right upper quadrant. Bilaterally intact nephrostomy tubes, no redness erythema or drainage. 7.MSK: Normocephalic/Atraumatic, Extremities w/o deformity or ttp No cyanosis or clubbing, Normal movement of all extremities 8.Skin: Warm, Dry. No rashes or lesions. 9.Neuro: linux admin engineer II-XII grossly intact. Sensation grossly intact, no focal neurologic deficits. 10.Psych: (AAO) x3. Appropriate mood and affect Course Vital Signs Temperature 37.3 C 02/22/18 12:15 Pulse 124 H 02/22/18 12:15 Respiratory Rate 18 02/22/18 12:15 Blood Pressure 91/70 L 02/22/18 12:15 Pulse Oximetry 99 02/22/18 12:15 Temperature 37.3 C 02/22/18 12:15 Pulse 124 H 02/22/18 12:15 Respiratory Rate 18 02/22/18 12:15 Blood Pressure 91/70 L 02/22/18 12:15 Pulse Oximetry 99 02/22/18 12:15 Pain Level 2 02/22/18 12:15
--- NOTE | 2018-02-22 12:30 | ED.GENADUL_ITS ---
Discharge Plan Disposition Patient Disposition: [facility] INPATIENT Condition: Stable Discharge Details Chief Complaint: GenMedical Clinical Impression: Acute dehydration, Enteritis, Acute hyperkalemia, Anemia, Acute UTI, Renal failure Reason For Visit: DEHYDRATION Admit Date/Time: 02/22/18 15:52 Admit Provider: Alexandria Mayen Attending Provider: Alexandria Mayen Primary Care Provider: Francois Zepeda ED Provider: Derrek Woods Discharge Data Discharge Date/Time-TO BE ENTERED AT DEPARTURE: 02/22/18 17:08 Medical Decision Making This is a 62-year-old male with a past medical history of bladder cancer, obstructive uropathy, acute renal failure, who is scheduled to have surgery in the next 20 days. He presents for malaise, vomiting for the last 3- 4 days, fatigue, generalized feelings of unwellness. Physical exam demonstrates a cachectic appearing female, notably pale, notably dehydrated. Reproducible right upper quadrant abdominal tenderness. Differential is broad especially with his surgeries for his nephrostomy tubes, and his underlying cancer. We will get a CT scan to evaluate for any acute process, perform laboratory workup to evaluate for cardiac or intra-abdominal or metabolic abnormalities. We will rehydrate. EKG 12: 25 Rate 111, [place] 134, QTc 429, QRS 84, sinus tachycardia. No ST elevations or depressions. Inverted T wave in V1. No Q waves CT scan does show evidence of mild enteritis but no other acute process. I feel his enteritis, and vomiting was the main cause of his initial symptomatology which led to his dehydration and current clinical status. Patient's laboratory workup demonstrates no significant white count, hemoglobin of 6.9, notable evidence of an elevated creatinine suggestive of an acute kidney injury, and a BUN/creatinine ratio concerning for severe dehydration. Potassium is elevated at 5.5. Calcium gluconate, insulin, glucose, and albuterol were given for stabilization and decrease of the patient's potassium. He was rehydrated with over 2 L of normal saline. Urinalysis did show signs concerning for urinary tract infection and antibiotics were started. Initial lactate is 2.8, however blood pressure has normalized with the 2 L of normal saline and the 1 unit of packed red blood cells. I do not think the patient needs a 30 cc/kg bolus at this time his lactate is less than 4. Because of the patient's notable dehydration, anemia, and multiple comorbidities I contacted the hospitalist and discussed the case with Dr. Rabago who agreed for admission for the patient. I have extensively reviewed the treatment plan with the patient. I have addressed all patient concerns at this time. I have also discussed the plan with the admitting physician and they agree with the current assessment and plan and have agreed to assume responsibility for the patient. All parties demonstrate verbal understanding and agreement with our assessment and plan at this time. IMPRESSION: 1. Bowel wall thickening and loops of jejunum in the left upper quadrant suspicious for an enteritis. 2. Stable urinary bladder mass causing marked hydronephrosis bilaterally. Bilateral nephrostomy tubes, which are stable in position. 3. Large incompletely imaged hydrocele. HPI General Date/Time Provider Initiated Documentation: 02/22/18 12:18 . HPI Narrative: This is a 62-year-old male with a past medical history of bladder cancer, who was scheduled to have surgery on the of this month, bilateral nephrostomy tubes as well as hypertension, cardiac disease. He presents today for complaint of malaise, dysuria, and vomiting for the last 4 days as well as a change in his nephrostomy tube output. Patient states that he has not been able to keep anything down. His vomitus is yellow, he denies any hematemesis. He denies any coffee grounds. He denies any abdominal pain, or discomfort. Nothing has improved or aggravated his vomiting symptoms. He does admit to a mild cough, but denies any hemoptysis. He denies any fever or chills. He has not been able to drink much over the last few days secondary to the vomiting. He has been able to still urinate, however he has noticed a significant decrease in his amount of urinary output, he is also noticed dysuria with urination. In addition to this his nephrostomy tubes bilaterally have been draining barely anything and while normally they are yellow and drainage, now they are green and filled with particulate matter. Patient has admitted to some occasional hematuria, however this is certainly more chronic than acute with his bladder cancer. He had a transfusion 2 weeks ago secondary to anemia, but denies any other complaints. He denies any hematochezia, melena , acholic stool. Patient denies any blood thinner use. He has no other complaints at this time. Related Data Home Medications Medication Instructions Recorded Confirmed OxyCODONE [Roxicodone Prepack] 1 tab PO Q4H PRN 12/27/17 02/22/18 acetaminophen 2 tab PO Q6H PRN 12/27/17 02/22/18 atorvastatin [Lipitor] 80 mg PO DAILY 12/27/17 02/22/18 docusate sodium 1 cap BID 12/27/17 02/22/18 ondansetron 4 mg PO Q6H PRN #10 tabef 12/27/17 02/22/18 polyethylene glycol 3350 17 gm PO DAILY PRN 12/27/17 02/22/18 carvedilol 3.125 mg tablet 3.125 mg PO BID 02/08/18 02/22/18 Previous Rx's Medication Instructions Recorded ondansetron 4 mg PO Q6H PRN #10 tabef 12/27/17 Allergies Allergy/AdvReac Type Severity Reaction Status Date / Time Sulfa (Sulfonamide Allergy Intermediate deathly Unverified 02/22/18 12:54 Antibiotics) sick and rash metoprolol AdvReac Intermediate Itching Unverified 02/22/18 12:45 sodium bicarbonate AdvReac Intermediate stomach Unverified 02/22/18 12:54 burning, vomitting General Stated Complaint: GenMedical [place]: 2 Review of Systems Review of Systems All systems reviewed & are unremarkable except as noted in HPI and below PFSH Family History Mother No problems noted. Father No problems noted. Brother No problems noted. 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, can't current occupational exposures/hazards: Yes Hx Recent Travel: No well-balanced diet: rarely or never eating out: rarely or never Smoking/Tobacco Use Status: Current every day tobacco type: cigarettes quit status: considering quitting counseling given: support program and counseling >3 minutes alcohol intake: former substance use type: marijuana seatbelt use: always drive intox or ride w/ intox bicycle taxi 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 3.ENT: Atraumatic external nose and ears. Notably dry MM. Neck: Symmetric, trachea midline, No thyromegaly. 4.CVS: +S1/S2, No murmurs or gallops. Peripheral pulses 2+ and equal in all extremities. Brisk capillary refill in all extremities. 5.RESP: Unlabored respiratory effort. Rales and rhonchi throughout. No significant wheezes 6.GI: Soft, Nondistended, No hepatosplenomegaly. No guarding or rebound. Mild reproducible tenderness in the right upper quadrant. Bilaterally intact nephrostomy tubes, no redness erythema or drainage. 7.MSK: Normocephalic/Atraumatic, Extremities w/o deformity or ttp No cyanosis or clubbing, Normal movement of all extremities 8.Skin: Warm, Dry. No rashes or lesions. 9.Neuro: associate manager II-XII grossly intact. Sensation grossly intact, no focal neurologic deficits. 10.Psych: (AAO) x3. Appropriate mood and affect Course Vital Signs Temperature 37.3 C 02/22/18 12:15 Pulse 124 H 02/22/18 12:15 Respiratory Rate 18 02/22/18 12:15 Blood Pressure 91/70 L 02/22/18 12:15 Pulse Oximetry 99 02/22/18 12:15 Temperature 37.3 C 02/22/18 12:15 Pulse 124 H 02/22/18 12:15 Respiratory Rate 18 02/22/18 12:15 Blood Pressure 91/70 L 02/22/18 12:15 Pulse Oximetry 99 02/22/18 12:15 Pain Level 2 02/22/18 12:15
[2018-02-22] MEDS: Normal Saline 1,000 ML 1000 ML IV ×2 (12:39→13:45)
[2018-02-22 12:43] LABS: Lactate-non-spesis 2.8 mmol/L (0.6-1.4)
[2018-02-22 12:44] LABS: Abs Immature Grans 0.07 k/cumm (0.0-0.09); Absolute Basophil Count 0.05 k/cumm (0.0-0.2); Absolute Eosinophil Count 0.01 k/cumm (0.0-0.7); Absolute Lymphocyte Count 1.26 k/cumm (1.2-3.4); Absolute Monocyte Count 1.56 k/cumm (0.11-0.7); Absolute Neutrophil Count 7.72 k/cumm (1.2-6.7); Basophils % 0.5; Eosinophils % 0.1; Immature Grans % 0.7; Lymphocytes % 11.8; Mean Corp. HGB Concentration 30.6 g/dL (32.0-36.0); Mean Corpuscular Hemoglobin 27.9 pg (27.0-33.0); Mean Corpuscular Volume 91.3 fL (80-95); Mean Platelet Volume 8.7 fL (8.0-11.0); Monocytes % 14.6; Neutrophils % 72.3; Platelet Count 703 x1000/uL (130-400); RBC 2.29 m/cumm (4.50-6.00); RBC Distribution Width 15.7 % (11.8-14.1); White Blood Cell Count 10.67 k/cumm (4.4-10.8)
[2018-02-22 12:50] LABS: HCT 20.9 % (40.0-50.0); HGB 6.4 g/dL (13.5-17.5)
[2018-02-22 12:57] LABS: Anisocytosis 1+; Diff Comment Diff Reviewed; Hypochromasia 1+
[2018-02-22 12:58] LABS: Poikilocytes 2+; Polychromasia Present
[2018-02-22 13:04] LABS: Albumin 2.3 g/dL (3.4-5.0); Anion Gap 13.3 mmol/L (3-11); BUN 62 mg/dL (7-18); CO2 22.7 mmol/L (21.0-32.0); Chloride 99 mmol/L (98-107); Estimated GFR 8.62 (mL/min/1.73m2); Glucose 137 mg/dL (70-100); Potassium 5.5 mmol/L (3.5-5.1); Sodium 135 mmol/L (136-145)
[2018-02-22 13:06] LABS: CREATININE 6.57 mg/dL (0.70-1.30)
--- NOTE | 2018-02-22 13:15 | DI.CT_ITS ---
SYMPTOMS/DIAGNOSIS: VOMITING, H/O BLADDER CA, NEPHRO TUBES, ABDOMINAL CT SCAN OF THE ABDOMEN AND PELVIS: CT scan of the abdomen and pelvis was performed without intravenous contrast material. Oral contrast was administered. Comparison is 12/15/17. The patient has a large urinary bladder mass. It is unchanged compared to the prior examination. There is resultant marked hydronephrosis of the kidneys bilaterally. The patient has bilateral nephrostomy tubes. The pigtails are seen within the renal pelves. There has been no progression of the degree of distention of the renal collecting system since 12/15/17. There are again seen several hypodense lesions within the liver, which appear stable and are indeterminate. The gallbladder is negative. No biliary ductal dilatation is present. The pancreas and spleen are unremarkable. The adrenal glands are stable. There is mild thickening of the wall of loops of small bowel in the left upper quadrant, which may reflect an enteritis. The remainder of the bowel shows no evidence of obstruction or inflammation. No findings to suggest an acute appendicitis are present. There is atherosclerosis of the abdominal aorta but no aneurysmal dilatation. No significant abdominal or pelvic adenopathy, ascites or pneumoperitoneum is present. There is again seen a large incompletely imaged hydrocele. IMPRESSION: 1. Bowel wall thickening and loops of jejunum in the left upper quadrant suspicious for an enteritis. 2. Stable urinary bladder mass causing marked hydronephrosis bilaterally. Bilateral nephrostomy tubes, which are stable in position. 3. Large incompletely imaged hydrocele. The findings were discussed with Dr. Woods of the Emergency Department on the date of the examination.
[2018-02-22 13:20] LABS: ALT 11 U/L (12-78); AST 11 U/L (15-37); Alkaline Phosphatase 115 U/L (46-116); Bilirubin, Total 0.3 mg/dL (0.2-1.0); Lipase 71 U/L (73-393); Total Protein 7.4 g/dL (6.4-8.2)
[2018-02-22 13:23] LABS: Troponin I < 0.02 ng/mL (0.00-0.06)
[2018-02-22] MEDS: Omnipaque 350 MG/ML 50 ML BTL PO (13:27)
[2018-02-22] MEDS: Albuterol 2.5 MG/3 ML INH SOLN VIAL 7.5 MG UPD (13:28)
[2018-02-22] MEDS: Breeza Beverage 473 ML BTL PO ×2 (13:28→13:29)
[2018-02-22] MEDS: Ondansetron 4 MG/2 ML VIAL IVP (13:29)
[2018-02-22] MEDS: Dextrose 50%-Water 25 GM/50 ML SYR IVP (13:33)
[2018-02-22] MEDS: Insulin REGULAR-Human 100 UNITS/ML UNIT SC (13:35)
[2018-02-22] MEDS: Calcium Gluconate 4.65 MEQ/10 ML VIAL 4.65 MG IVP (13:37)
[2018-02-22 15:55] LABS: Bilirubin Negative (Negative); Blood Large (Negative); Glucose Negative (Negative); Ketones Negative (Negative); Leukocyte Esterase Small (Negative); Nitrite Negative (Negative); Urobilinogen 0.2 EU/dL (Up TO 0.2); pH 7.5 (5-8)
[2018-02-22 16:02] LABS: Clarity Cloudy
[2018-02-22 16:03] LABS: C & S Indicated? Yes; RBC >50 (0-2); WBC >50 HPF (0-5)
--- NOTE | 2018-02-22 19:22 | W.PM.HP.N ---
Date of service: 02/22/18 Time of Service: 19:22 Assessment and Plan (1) Symptomatic anemia: Current visit: Yes Status: Acute S/p transfusion of 1 unit of pRBC's in ER. Transfusing 1 more unit tonight considering that the patient was hemoconcentrated on arrival due to dehydration. Will check H/H in follow up. Ultimately, this will keep being an issue until hematuria is controlled. (2) Hematuria: Current visit: Yes Status: Acute Due to known bladder mass. Patient refuses catheterization. Urology consult in am. (3) Bladder cancer: Current visit: Yes Status: Acute As above. Patient would still like aggressive care and would like to be full code. (4) Dehydration: Current visit: Yes Status: Acute Patient is being hydrated intravenously. I suspect that this is the cause of his lactic acidosis. (5) Chronic kidney disease, stage 5: Current visit: Yes Status: Acute Monitor Cr and potassium. Patient continues to make urine. (6) FUO (fever of unknown origin): Current visit: Yes Status: Acute Possibly tumor fever. Checking CXR. Considering antibiotics, but would like to identify a source first. (7) Hyperkalemia: Current visit: Yes Status: Acute Repeat BMP is pending. Patient is written for a renal diet. (8) Enteritis: Current visit: Yes Status: Acute Clinically, appears to be better. Continue IVF; diet as tolerated. Antiemetics written. History of Present Illness Chief Complaint: I was sick Narrative: Mr Andrew is a 62 year old male with PMHx of bladder cancer with obstructive uropathy, s/p B nephrostomy tubes, CKD 5 (not on dialysis), chronic hematuria and anemia due to above, Chronic systolic CHF wih EF 35% who presented to [facility] ED today complaining of feeling sick, by which he meant nausea, vomiting, dizziness and fatigue. He denied abdominal pain. He had an episode of diarrhea, but only after he had oral contrast in the ED. He feels better now. He states that his hematuria is constant and that his nephrostomy tubes have not had any output since Wednesday (2 cosby ago). The patient also reports fevers/chills at home. He states his cough is his normal, productive of yellow sputum. There is no dysuria on urination. In the ER, he was found to have a Hgb of 6.4, was transfused 1 unit of pRBC's. His potassium was 5.5 without EKG changes. His Cr was 6.57 (it has been as high as >8 in the past); he still makes urine. His potassium was treated medically with insulin, albuterl, IV fluid. He was also found to have evidence of enteritis on CT. We admitted the patient for further care for his anemia, hematuria due to the bladder mass, as well as dehydration. He politely refused the clayton catheter. He is planned to undergo bladder surgery [place] [facility] [place]. Review of Systems Review of Systems Twelve systems were reviewed. Pertinent positives and negatives are as per HPI. [facility] Family History Mother No problems noted. Father No problems noted. Brother No problems noted. 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, can't current occupational exposures/hazards: Yes Hx Recent Travel: No well-balanced diet: rarely or never eating out: rarely or never Smoking/Tobacco Use Status: Current every day tobacco type: cigarettes quit status: considering quitting counseling given: support program and counseling >3 minutes alcohol intake: former substance use type: marijuana seatbelt use: always drive intox or ride w/ intox 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 working smoke detector in home: Yes fire extinguisher in home: No carbon monox detector in home: Yes firearms in home: Yes firearms unloaded and locked: No Surgical History History of ankle surgery (Acute) History of biopsy of bladder (Acute) Previous back surgery (Acute) Meds Home Medications Medication Instructions Recorded Confirmed Type OxyCODONE [Roxicodone Prepack] 1 tab PO Q4H PRN 12/27/17 02/22/18 History acetaminophen 2 tab PO Q6H PRN 12/27/17 02/22/18 History atorvastatin [Lipitor] 80 mg PO DAILY 12/27/17 02/22/18 History docusate sodium 1 cap BID 12/27/17 02/22/18 History ondansetron 4 mg PO Q6H PRN #10 tabef 12/27/17 02/22/18 Rx polyethylene glycol 3350 17 gm PO DAILY PRN 12/27/17 02/22/18 History carvedilol 3.125 mg tablet 3.125 mg PO BID 02/08/18 02/22/18 History Allergies Allergy/AdvReac Type Severity Reaction Status Date / Time Sulfa (Sulfonamide Allergy Intermediate deathly Unverified 02/22/18 12:54 Antibiotics) sick and rash metoprolol AdvReac Intermediate Itching Unverified 02/22/18 12:45 sodium bicarbonate AdvReac Intermediate stomach Unverified 02/22/18 12:54 burning, vomitting Exam Narrative Exam Narrative: General: Cachectic, ill appearing male, pale, laying in bed, appears much older than his stated age Psych: appears depressed; irritable; angry Neuro: A&Ox3, CN II-XII intact, no focal deficits Skin: dry, pale, decreased turgor HEENT: Atraumatic, normocephalic, Dry MM, EOMI, no submandibular or cervical lymphadenopathy, no goiter or JVD Heart: RRR, no m/r/g Lungs: CTAB Abdomen: soft, nontender, nondistended B nephrostomy tubes in place; minimal output in bags Extremities: 1+ pedal pulses B; no clubbing or cyanosis. Trace edema in B feet Results Imaging Imaging Studies: CT abdomen/pelvis PO contrast only: 1. Bowel wall thickening and loops of jejunum in the left upper quadrant suspicious for an enteritis. 2. Stable urinary bladder mass causing marked hydronephrosis bilaterally. Bilateral nephrostomy tubes, which are stable in position. 3. Large incompletely imaged hydrocele. Labs : 02/22/18 12:35 02/22/18 12:35 Laboratory Results - last 24 hr 02/22/18 02/22/18 02/22/18 12:35 12:35 12:35 WBC 10.67 RBC 2.29 L Hgb 6.4 L* Hct 20.9 L* MCV 91.3 MCH 27.9 MCHC 30.6 L RDW 15.7 H Plt Count 703 H MPV 8.7 Immature Gran % 0.7 Neutrophils % 72.3 Lymphocytes % 11.8 Monocytes % 14.6 Eosinophils % 0.1 Basophils % 0.5 Absolute Neutrophils 7.72 H Absolute Lymphocytes 1.26 Absolute Monocytes 1.56 H Absolute Eosinophils 0.01 Absolute Basophils 0.05 Differential Comment Diff reviewed RBC Morphology See below Polychromasia Present Hypochromasia 1+ Poikilocytosis 2+ Anisocytosis 1+ Sodium 135 L Potassium 5.5 H Chloride 99 Carbon Dioxide 22.7 Anion Gap 13.3 H BUN 62 H Creatinine 6.57 H* Estimated GFR/1.73 m2 8.62 Glucose 137 H Lactate 2.8 H Calcium 9.0 Total Bilirubin 0.3 AST 11 L ALT 11 L Alkaline Phosphatase 115 Troponin I < 0.02 Total Protein 7.4 Albumin 2.3 L Lipase 71 L Urine Color Urine Clarity Urine pH Ur Specific Violet Urine Protein Urine Ketones Urine Blood Urine Nitrite Urine Bilirubin Urine Urobilinogen Ur Leukocyte Esterase Urine RBC Urine WBC Ur Epithelial Cells Urine Crystals Urine Bacteria Urine Mucus Ur Culture Indicated? Urine Glucose Patient ABO/Rh Antibody Screen Crossmatch 02/22/18 02/22/18 14:20 15:37 WBC RBC Hgb Hct MCV MCH MCHC RDW Plt Count MPV Immature Gran % Neutrophils % Lymphocytes % Monocytes % Eosinophils % Basophils % Absolute Neutrophils Absolute Lymphocytes Absolute Monocytes Absolute Eosinophils Absolute Basophils Differential Comment RBC Morphology Polychromasia Hypochromasia Poikilocytosis Anisocytosis Sodium Potassium Chloride Carbon Dioxide Anion Gap BUN Creatinine Estimated GFR/1.73 m2 Glucose Lactate Calcium Total Bilirubin AST ALT Alkaline Phosphatase Troponin I Total Protein Albumin Lipase Urine Color Red Urine Clarity Cloudy Urine pH 7.5 Ur Specific Violet 1.020 Urine Protein >=300 H Urine Ketones Negative Urine Blood Large H Urine Nitrite Negative Urine Bilirubin Negative Urine Urobilinogen 0.2 Ur Leukocyte Esterase Small H Urine RBC >50 H Urine WBC >50 Ur Epithelial Cells Not Applicable Urine Crystals Not Applicable Urine Bacteria Not Applicable Urine Mucus Not Applicable Ur Culture Indicated? Yes Urine Glucose Negative Patient ABO/Rh O Positive Antibody Screen Negative Crossmatch See Detail Last Vital Signs Temp 37.7 C H 02/22/18 17:16 Pulse 97 H 02/22/18 18:16 Resp 21 02/22/18 18:16 BP 123/79 02/22/18 18:16 Pulse Ox 94 L 02/22/18 18:16
--- NOTE | 2018-02-22 19:27 | HPE_ITS ---
Date of service: 02/22/18 Time of Service: 19:22 Assessment and Plan (1) Symptomatic anemia: Current visit: Yes Status: Acute S/p transfusion of 1 unit of pRBC's in ER. Transfusing 1 more unit tonight considering that the patient was hemoconcentrated on arrival due to dehydration. Will check H/H in follow up. Ultimately, this will keep being an issue until hematuria is controlled. (2) Hematuria: Current visit: Yes Status: Acute Due to known bladder mass. Patient refuses catheterization. Urology consult in am. (3) Bladder cancer: Current visit: Yes Status: Acute As above. Patient would still like aggressive care and would like to be full code. (4) Dehydration: Current visit: Yes Status: Acute Patient is being hydrated intravenously. I suspect that this is the cause of his lactic acidosis. (5) Chronic kidney disease, stage 5: Current visit: Yes Status: Acute Monitor Cr and potassium. Patient continues to make urine. (6) FUO (fever of unknown origin): Current visit: Yes Status: Acute Possibly tumor fever. Checking CXR. Considering antibiotics, but would like to identify a source first. (7) Hyperkalemia: Current visit: Yes Status: Acute Repeat BMP is pending. Patient is written for a renal diet. (8) Enteritis: Current visit: Yes Status: Acute Clinically, appears to be better. Continue IVF; diet as tolerated. Antiemetics written. History of Present Illness Chief Complaint: I was sick Narrative: Mr Andrew is a 62 year old male with PMHx of bladder cancer with obstructive uropathy, s/p B nephrostomy tubes, CKD 5 (not on dialysis), chronic hematuria and anemia due to above, Chronic systolic CHF wih EF 35% who presented to [facility] ED today complaining of feeling sick, by which he meant nausea , vomiting, dizziness and fatigue. He denied abdominal pain. He had an episode of diarrhea, but only after he had oral contrast in the ED. He feels better now. He states that his hematuria is constant and that his nephrostomy tubes have not had any output since Wednesday (2 cosby ago). The patient also reports fevers/chills at home. He states his cough is his normal, productive of yellow sputum. There is no dysuria on urination. In the ER, he was found to have a Hgb of 6.4, was transfused 1 unit of pRBC's. His potassium was 5.5 without EKG changes. His Cr was 6.57 (it has been as high as >8 in the past); he still makes urine. His potassium was treated medically with insulin, albuterl, IV fluid. He was also found to have evidence of enteritis on CT. We admitted the patient for further care for his anemia, hematuria due to the bladder mass, as well as dehydration. He politely refused the clayton catheter. He is planned to undergo bladder surgery at [facility] on March 15. Review of Systems Review of Systems Twelve systems were reviewed. Pertinent positives and negatives are as per HPI. [facility] Family History Mother No problems noted. Father No problems noted. Brother No problems noted. 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, can't current occupational exposures/hazards: Yes Hx Recent Travel: No well-balanced diet: rarely or never eating out: rarely or never Smoking/Tobacco Use Status: Current every day tobacco type: cigarettes quit status: considering quitting counseling given: support program and counseling >3 minutes alcohol intake: former substance use type: marijuana seatbelt use: always drive intox or ride w/ intox bus driver: No working smoke detector in home: Yes fire extinguisher in home: No carbon monox detector in home: Yes firearms in home: Yes firearms unloaded and locked: No Surgical History History of ankle surgery (Acute) History of biopsy of bladder (Acute) Previous back surgery (Acute) Meds Home Medications Medication Instructions Recorded Confirmed Type OxyCODONE [Roxicodone Prepack] 1 tab PO Q4H PRN 12/27/17 02/22/18 History acetaminophen 2 tab PO Q6H PRN 12/27/17 02/22/18 History atorvastatin [Lipitor] 80 mg PO DAILY 12/27/17 02/22/18 History docusate sodium 1 cap BID 12/27/17 02/22/18 History ondansetron 4 mg PO Q6H PRN #10 tabef 12/27/17 02/22/18 Rx polyethylene glycol 3350 17 gm PO DAILY PRN 12/27/17 02/22/18 History carvedilol 3.125 mg tablet 3.125 mg PO BID 02/08/18 02/22/18 History Allergies Allergy/AdvReac Type Severity Reaction Status Date / Time Sulfa (Sulfonamide Allergy Intermediate deathly Unverified 02/22/18 12:54 Antibiotics) sick and rash metoprolol AdvReac Intermediate Itching Unverified 02/22/18 12:45 sodium bicarbonate AdvReac Intermediate stomach Unverified 02/22/18 12:54 burning, vomitting Exam Narrative Exam Narrative: General: Cachectic, ill appearing male, pale, laying in bed, appears much older than his stated age Psych: appears depressed; irritable; angry Neuro: A&Ox3, CN II-XII intact, no focal deficits Skin: dry, pale, decreased turgor HEENT: Atraumatic, normocephalic, Dry MM, EOMI, no submandibular or cervical lymphadenopathy, no goiter or JVD Heart: RRR, no m/r/g Lungs: CTAB Abdomen: soft, nontender, nondistended B nephrostomy tubes in place; minimal output in bags Extremities: 1+ pedal pulses B; no clubbing or cyanosis. Trace edema in B feet Results Imaging Imaging Studies: CT abdomen/pelvis PO contrast only: 1. Bowel wall thickening and loops of jejunum in the left upper quadrant suspicious for an enteritis. 2. Stable urinary bladder mass causing marked hydronephrosis bilaterally. Bilateral nephrostomy tubes, which are stable in position. 3. Large incompletely imaged hydrocele. Labs : 02/22/18 12:35 02/22/18 12:35 Laboratory Results - last 24 hr 02/22/18 02/22/18 02/22/18 12:35 12:35 12:35 WBC 10.67 RBC 2.29 L Hgb 6.4 L* Hct 20.9 L* MCV 91.3 MCH 27.9 MCHC 30.6 L RDW 15.7 H Plt Count 703 H MPV 8.7 Immature Gran % 0.7 Neutrophils % 72.3 Lymphocytes % 11.8 Monocytes % 14.6 Eosinophils % 0.1 Basophils % 0.5 Absolute Neutrophils 7.72 H Absolute Lymphocytes 1.26 Absolute Monocytes 1.56 H Absolute Eosinophils 0.01 Absolute Basophils 0.05 Differential Comment Diff reviewed RBC Morphology See below Polychromasia Present Hypochromasia 1+ Poikilocytosis 2+ Anisocytosis 1+ Sodium 135 L Potassium 5.5 H Chloride 99 Carbon Dioxide 22.7 Anion Gap 13.3 H BUN 62 H Creatinine 6.57 H* Estimated GFR/1.73 m2 8.62 Glucose 137 H Lactate 2.8 H Calcium 9.0 Total Bilirubin 0.3 AST 11 L ALT 11 L Alkaline Phosphatase 115 Troponin I < 0.02 Total Protein 7.4 Albumin 2.3 L Lipase 71 L Urine Color Urine Clarity Urine pH Ur Specific Rudolph Urine Protein Urine Ketones Urine Blood Urine Nitrite Urine Bilirubin Urine Urobilinogen Ur Leukocyte Esterase Urine RBC Urine WBC Ur Epithelial Cells Urine Crystals Urine Bacteria Urine Mucus Ur Culture Indicated? Urine Glucose Patient ABO/Rh Antibody Screen Crossmatch 02/22/18 02/22/18 14:20 15:37 WBC RBC Hgb Hct MCV MCH MCHC RDW Plt Count MPV Immature Gran % Neutrophils % Lymphocytes % Monocytes % Eosinophils % Basophils % Absolute Neutrophils Absolute Lymphocytes Absolute Monocytes Absolute Eosinophils Absolute Basophils Differential Comment RBC Morphology Polychromasia Hypochromasia Poikilocytosis Anisocytosis Sodium Potassium Chloride Carbon Dioxide Anion Gap BUN Creatinine Estimated GFR/1.73 m2 Glucose Lactate Calcium Total Bilirubin AST ALT Alkaline Phosphatase Troponin I Total Protein Albumin Lipase Urine Color Red Urine Clarity Cloudy Urine pH 7.5 Ur Specific Rudolph 1.020 Urine Protein >=300 H Urine Ketones Negative Urine Blood Large H Urine Nitrite Negative Urine Bilirubin Negative Urine Urobilinogen 0.2 Ur Leukocyte Esterase Small H Urine RBC >50 H Urine WBC >50 Ur Epithelial Cells Not Applicable Urine Crystals Not Applicable Urine Bacteria Not Applicable Urine Mucus Not Applicable Ur Culture Indicated? Yes Urine Glucose Negative Patient ABO/Rh O Positive Antibody Screen Negative Crossmatch See Detail Last Vital Signs Temp 37.7 C H 02/22/18 17:16 Pulse 97 H 02/22/18 18:16 Resp 21 02/22/18 18:16 BP 123/79 02/22/18 18:16 Pulse Ox 94 L 02/22/18 18:16
--- NOTE | 2018-02-22 20:12 | DI.RAD_ITS ---
SYMPTOMS/DIAGNOSIS: FEVERS, COUGH, ? PNEUMONIA CHEST X-RAY, PORTABLE AP VIEW: No priors. The heart size and pulmonary vasculature are within normal limits. The lungs are clear. No effusions or pneumothoraces are identified. The lungs appear hyperinflated suggesting underlying COPD. Degenerative changes are seen in the spine and the shoulders bilaterally, right greater than left. IMPRESSION: No acute pulmonary process.
[2018-02-22] MEDS: diphenhydrAMINE 25 MG CAP PO (20:25)
[2018-02-22] MEDS: Acetaminophen 325 MG TAB 650 MG PO (20:26)
[2018-02-22] MEDS: Carvedilol 3.125 MG TAB PO (20:27)
[2018-02-22] MEDS: Normal Saline Flush 10 ML SYR IVP (20:27)
--- NOTE | 2018-02-22 21:04 | DI.VRAD_ITS ---
EXAM: XR Chest, 1 View CLINICAL HISTORY: 62 years old, male; Signs and symptoms; Other: Fevers, cough - R/O pna TECHNIQUE: Frontal view of the chest. COMPARISON: CT CHEST ABD PELVIS WO CONTRAST 12/15/2017 11:18 AM FINDINGS: Lungs: The cardiomediastinal silhouette is within normal limits. The coronary vasculature is within normal limits. There is hyperventilation consistent with emphysema/COPD. The lungs are otherwise clear. Pleural space: No pneumothorax. No pleural effusion. Heart: Unremarkable. No cardiomegaly. Mediastinum: Unremarkable. Bones/joints: Moderate multilevel degenerative changes of the spine. Degenerative changes of the acromioclavicular joints. Other findings: There is mild rotation. IMPRESSION: No acute cardiopulmonary abnormality. COPD/emphysema. Dictated and Authenticated by: Amanda Humphrey MD. Ordering:JHOAN JAMES MD
--- NOTE | 2018-02-22 21:29 | NUR.NOTE ---
Dr Mckeon advised of the Pt's Temporal artery scanned Temp of 38.8 prior to Blood being started. ordered to have blood cultures to be drawn after this unit of PRBCs is completely transfused. transfused.Nursing Note:
[2018-02-23] VITALS (38 sets, daily range): BP systolic 113–156; BP diastolic 65–91; PULSE 83–113; RESP 14–27; TEMP 37.3–38.2; O2SAT 93–98
[2018-02-23 06:48] LABS: Lactate-non-spesis 0.7 mmol/L (0.6-1.4)
[2018-02-23 06:50] LABS: Abs Immature Grans 0.06 k/cumm (0.0-0.09); Absolute Basophil Count 0.03 k/cumm (0.0-0.2); Absolute Eosinophil Count 0.02 k/cumm (0.0-0.7); Basophils % 0.3; Eosinophils % 0.2; HCT 24.2 % (40.0-50.0); HGB 7.7 g/dL (13.5-17.5); Immature Grans % 0.5; Lymphocytes % 9.3; Mean Corp. HGB Concentration 31.8 g/dL (32.0-36.0); Mean Corpuscular Hemoglobin 28.6 pg (27.0-33.0); Mean Platelet Volume 8.8 fL (8.0-11.0); Monocytes % 14.5; Neutrophils % 75.2; Platelet Count 562 x1000/uL (130-400); RBC 2.69 m/cumm (4.50-6.00); RBC Distribution Width 14.8 % (11.8-14.1); White Blood Cell Count 11.02 k/cumm (4.4-10.8)
[2018-02-23 06:59] LABS: Absolute Lymphocyte Count 1.02 k/cumm (1.2-3.4); Absolute Neutrophil Count 8.29 k/cumm (1.2-6.7)
[2018-02-23 07:10] LABS: Anion Gap 11.7 mmol/L (3-11); BUN 60 mg/dL (7-18); CO2 21.3 mmol/L (21.0-32.0); Calcium 8.5 mg/dL (8.5-10.1); Chloride 106 mmol/L (98-107); Estimated GFR 8.64 (mL/min/1.73m2); Glucose 93 mg/dL (70-100); Magnesium 1.8 mg/dL (1.8-2.4); Potassium 5.2 mmol/L (3.5-5.1); Sodium 139 mmol/L (136-145)
[2018-02-23 07:13] LABS: CREATININE 6.56 mg/dL (0.70-1.30)
--- NOTE | 2018-02-23 07:46 | PDOC.CMIN ---
- If Service Date Differs Date of service: 02/23/18 Time of Service: 07:46 Care Management Initial Assess REASON FOR HOSPITALIZATION:: Dehydration. PAST MEDICAL HISTORY/PAST SURGICAL HISTORY:: Arteriosclerotic cardiovascular disease, bladder mass, cardiomyopathy, chronic kidney disease, emphysema, enteritis, hyperkalemia, anemia, acute renal failure, bilateral obstructive uropathy, non-STEMI, pelvic mass, right hydrocele, left inguinal hernia. Surgical hx: Left ankle repair, biopsy of bladder, discetomy to four discs (lumbar spine). PREVIOUS FUNCTIONAL STATUS/SOCIAL/FAMILY SUPPORTS:: Cornelio resides in [place] with his ex , Brittany, and his six year old son from a previous relationship. Cornelio reports that he moved back in with Brittany so that she could care for him following his illness. 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 He reports that he is independent with his ADLs and transportation. Dr. Roberson reports that she follows Cornelio in the community and that Brittany will be caring for Cornelio's son following his passing. CURRENT FUNCTIONAL STATUS:: Cornelio is lying in bed in the ICU when CM visits this morning. He is engaged in conversation, is talkative, and makes good eye contact. Cornelio denies pain and reports that he has had no nausea or vomiting this morning. Cornelio continues to receive IV fluids and antibiotics and has a palliative consult with Dr. Roberson later today. He denies any concerns about returning home when medically ready per MD. ADVANCE DIRECTIVES:: None on file at [facility]. SCOTTIE provided advanced directive paperwork to Cornelio. Has patient been provided with information about the portal?: Yes Did the patient sign up for the portal?: No CODE STATUS:: Full Code INSURANCE COVERAGE / FINANCIAL ISSUES:: Medicaid. CURRENT HOME/COMMUNITY SERVICES/EQUIPMENT:: No current home or community services. No equipment. PRIMARY CARE PHYSICIAN:: Francois Zepeda. POTENTIAL DISCHARGE NEEDS:: Follow up appointment with MD. PATIENT/FAMILY EDUCATION NEEDS:: Discharge education, any limitations, and follow up plan of care. Ask Me Three discussion. ANTICIPATED BARRIERS TO DISCHARGE:: No anticipated barriers to discharge. TRANSPORTATION:: Cornelio will transport home via private vehicle with ex , Brittany. PLAN:: Cornelio will discharge when medically ready per MD. Anticipate patient will discharge with no services and follow up with his PCP. CM will continue to offer support to patient and care team regarding discharge planning and disposition.
--- NOTE | 2018-02-23 09:14 | INITIAL_ITS ---
- If Service Date Differs Date of service: 02/23/18 Time of Service: 07:46 Care Management Initial Assess REASON FOR HOSPITALIZATION:: Dehydration. PAST MEDICAL HISTORY/PAST SURGICAL HISTORY:: Arteriosclerotic cardiovascular disease, bladder mass, cardiomyopathy, chronic kidney disease, emphysema, enteritis, hyperkalemia, anemia, acute renal failure, bilateral obstructive uropathy, non-STEMI, pelvic mass, right hydrocele, left inguinal hernia. Surgical hx: Left ankle repair, biopsy of bladder, discetomy to four discs ( lumbar spine). PREVIOUS FUNCTIONAL STATUS/SOCIAL/FAMILY SUPPORTS:: Cornelio resides in [place] with his ex , Brittany, and his six year old son from a previous relationship. Cornelio reports that he moved back in with Brittany so that she could care for him following his illness. 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 He reports that he is independent with his ADLs and transportation. Dr. Roberson reports that she follows Cornelio in the community and that Brittany will be caring for Cornelio's son following his passing. CURRENT FUNCTIONAL STATUS:: Cornelio is lying in bed in the ICU when CM visits this morning. He is engaged in conversation, is talkative, and makes good eye contact. Cornelio denies pain and reports that he has had no nausea or vomiting this morning. Cornelio continues to receive IV fluids and antibiotics and has a palliative consult with Dr. Roberson later today. He denies any concerns about returning home when medically ready per MD. ADVANCE DIRECTIVES:: None on file at [facility]. SCOTTIE provided advanced directive paperwork to Cornelio. Has patient been provided with information about the portal?: Yes Did the patient sign up for the portal?: No CODE STATUS:: Full Code INSURANCE COVERAGE / FINANCIAL ISSUES:: Medicaid. CURRENT HOME/COMMUNITY SERVICES/EQUIPMENT:: No current home or community services. No equipment. PRIMARY CARE PHYSICIAN:: Francois Zepeda. POTENTIAL DISCHARGE NEEDS:: Follow up appointment with MD. PATIENT/FAMILY EDUCATION NEEDS:: Discharge education, any limitations, and follow up plan of care. Ask Me Three discussion. ANTICIPATED BARRIERS TO DISCHARGE:: No anticipated barriers to discharge. TRANSPORTATION:: Cornelio will transport home via private vehicle with ex , Brittany. PLAN:: Cornelio will discharge when medically ready per MD. Anticipate patient will discharge with no services and follow up with his PCP. CM will continue to offer support to patient and care team regarding discharge planning and disposition.
[2018-02-23] MEDS: Carvedilol 3.125 MG TAB PO ×2 (09:26→20:02)
[2018-02-23] MEDS: Normal Saline Flush 10 ML SYR IVP (09:26)
[2018-02-23] MEDS: Normal Saline 1,000 ML 100 ML IV ×3 (09:27→21:51)
[2018-02-23] MEDS: Acetaminophen 325 MG TAB PO ×2 (10:27→21:45)
--- NOTE | 2018-02-23 11:03 | W.PALLCONSUL ---
Date of service: 02/23/18 Time of Service: 11:04 History of Present Illness Chief Complaint: bladder cancer, ARF, severe anemia, fevers Narrative: Cornelio is a 62 yo man who was diagnosed with bladder cancer this past summer after having gross hematuria. His tumor was determined to be obstructing both ureters. He has had bilateral nephrostomy tubes in place 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. They usually put out 3981-6027 ccs of urine on the right daily; 300-400 ccs on the left daily. They stopped draining any urine as of Wednesday, February 20. He has also had increased chronic gross hematuria. Prior to this admission, he was supposed to get bi-weekly blood draws for CBC and kidney function. I ordered transfusions as an outpatient prn for hgb less than 7. However, he never came in for his labs even though they were ordered for him. I spoke to his ex-, with whom he is now living again, and she said Cornelio was waiting for a phone call to go to the lab. Obviously, he did not fully understand the plan. After I saw Cornelio two weeks ago, I did try to move up his surgery with urologic oncology at [facility]. Unfortunately, as the surgery is an all-day affair, no sooner open OR time could be found. His surgery remains set for March [address] Cheng Pleitez. Yesterday, Cornelio came in to [facility] ER exhausted, anemic, with increasing amounts of gross hematuria. His reports that he would fill half the urinal jug with bright red blood. He reports he's been filling the urinal, ie putting out 1000 cc of gross hematuria daily since February 20. He's been weak. Sob. With intermittent chest pains. His labs have worsened. He is now in ARF. His nephrostomy tubes are draining minimal amounts according to nurses and . They were draining fine when I saw him 2 weeks ago as an outpatient. This admission is complicated by a FUO as high as 104.7 last night. He is on IV ceftriaxone. His fever is down, but not yet normal. Blood cultures, urine cultures are pending; CXR negative. He says he has had some pains, mostly in his chest, not in his suprapubic region. He is very dyspneic, even with talking. He still wants to pursue surgery if the surgical team will take him. He remains a full code. He has a 6 yo son at home whose mother (his second ) 2 years ago. He doesn't want to leave him an orphan. Assessment and Plan (1) Bladder cancer: Start date: 12/15/17 Current visit: Yes Status: Acute Given his decline, i.e. oliguria and increasing hematuria with severe anemia and stage 5 CKD and now FUO, he needs to be evaluated by his urologic team to see if he is still a surgical candidate. He also likely needs dialysis as he is uremic. He has had nausea, periods of confusion (evidenced by his inability to understand and follow through on our plan though he verbally was able to repeat it in the office). Dr. Mayen is working on transferring Cornelio to [facility]. I strongly support this plan. I did tell Cornelio that he may not be strong enough to survive a day long surgery. The team may not be able to operate. If so, he would be open to chemo and/or radiation. He wants to be as aggressive toward his cancer as he body allows. (2) Dehydration: Start date: 02/20/18 Current visit: Yes Status: Acute getting some IVF danger in that he is oliguric nurses flushing his nephrostomy tubes tumor may have blocked the tubes? not sure (3) Acute renal failure: Current visit: No Status: Acute acute on chronic failure was getting better when I saw him. Creatinine was down to 4. Now up to the mid-6 again. Had been 8 when first diagnosed. Will need dialysis as he is symptomatic. (4) Goals of care, counseling/discussion: Current visit: Yes Status: Acute He is very clear that he wants to be treated by cancer team in whatever way they are willing to treat him. He recognizes that he is very weak and frail. I think it is in his best interest to be seen again by urology in this current condition so they can guide him in decision making; surgery may need to be postponed; he may no longer be a surgical candidate. Defer to urology. Dr Mayen working on transfer. REcommend that Palliative care at [facility] continues to work with him if he is accepted in transfer. Review of Systems Constitutional Reports anorexia, Reports daytime sleepiness, Reports fatigue, Reports fever(s), Reports lethargy, Reports poor appetite, Reports weakness and Reports weight loss Eyes Reports dry eyes and Reports requires corrective lenses ENT Reports dizziness, Reports dry mouth and Reports disequilibrium Cardiovascular Reports chest pain, Reports palpitations and Reports dyspnea on exertion Respiratory Reports dyspnea on exertion Gastrointestinal Reports early satiety, Reports dyspepsia and Reports nausea Genitourinary Reports hematuria and Reports oliguria Musculoskeletal Reports muscle weakness Neurologic Reports dizziness, Reports disequilibrium and Reports weakness Psychiatric Reports change in appetite Endocrine Reports fatigue and Reports palpitations Hematologic/Lymphatic Reports easy bleeding PFSH Family History Mother No problems noted. Father No problems noted. Brother No problems noted. 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, [employer], 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, can't current occupational exposures/hazards: Yes Hx Recent Travel: No well-balanced diet: rarely or never eating out: rarely or never Smoking/Tobacco Use Status: Current every day tobacco type: cigarettes quit status: considering quitting counseling given: support program and counseling >3 minutes alcohol intake: former substance use type: marijuana seatbelt use: always drive intox or ride w/ intox patient transportation driver: No working smoke detector in home: Yes fire extinguisher in home: No carbon monox detector in home: Yes firearms in home: Yes firearms unloaded and locked: No Surgical History History of ankle surgery (Acute) History of biopsy of bladder (Acute) Previous back surgery (Acute) Exam Const General: cooperative, disheveled, frail appearing and ill appearing Nutritional Appearance: cachectic, malnourished and underweight Orientation: alert, awake and oriented x3 HENMT Head: normocephalic Ears: hearing grossly normal bilaterally Face and sinus: dry mucous membranes Mouth: malodorous breath Eyes Conjunctivae: conjunctivae normal Sclera: scleral abnormality (extremely pale) bilaterally Neck Neck: no lymphadenopathy Resp Effort & Inspection: normal respiratory effort and able to speak in complete sentences Auscultation: clear to auscultation bilaterally and diminished lung sounds Cardio Jugular venous pressure: no JVD Rate: tachycardic Rhythm: regular rhythm Heart Sounds: S1 normal and S2 normal GI Inspection: scaphoid Palpation: soft and tender suprapubicly Auscultation: normal bowel sounds Skin General skin exam: dry skin and pallor Neuro General: alert, awake and oriented x3 Cognition: normal cognition Speech: speech normal Results Last Vital Signs Temp 100.8 F H 02/23/18 10:27 Pulse 93 H 02/23/18 09:48 Resp 20 02/23/18 09:00 BP 129/83 02/23/18 09:00 Pulse Ox 98 02/23/18 09:00 Labs : 02/23/18 06:40 02/23/18 06:40 Laboratory Results - last 24 hr 02/22/18 02/22/18 02/22/18 12:35 12:35 12:35 WBC 10.67 RBC 2.29 L Hgb 6.4 L* Hct 20.9 L* MCV 91.3 MCH 27.9 MCHC 30.6 L RDW 15.7 H Plt Count 703 H MPV 8.7 Immature Gran % 0.7 Neutrophils % 72.3 Lymphocytes % 11.8 Monocytes % 14.6 Eosinophils % 0.1 Basophils % 0.5 Absolute Neutrophils 7.72 H Absolute Lymphocytes 1.26 Absolute Monocytes 1.56 H Absolute Eosinophils 0.01 Absolute Basophils 0.05 Differential Comment Diff reviewed RBC Morphology See below Polychromasia Present Hypochromasia 1+ Poikilocytosis 2+ Anisocytosis 1+ Sodium 135 L Potassium 5.5 H Chloride 99 Carbon Dioxide 22.7 Anion Gap 13.3 H BUN 62 H Creatinine 6.57 H* Estimated GFR/1.73 m2 8.62 Glucose 137 H Lactate 2.8 H Calcium 9.0 Magnesium Total Bilirubin 0.3 AST 11 L ALT 11 L Alkaline Phosphatase 115 Troponin I < 0.02 Total Protein 7.4 Albumin 2.3 L Lipase 71 L Urine Color Urine Clarity Urine pH Ur Specific Martin Urine Protein Urine Ketones Urine Blood Urine Nitrite Urine Bilirubin Urine Urobilinogen Ur Leukocyte Esterase Urine RBC Urine WBC Ur Epithelial Cells Urine Crystals Urine Bacteria Urine Mucus Ur Culture Indicated? Urine Glucose Patient ABO/Rh Antibody Screen Crossmatch Reaction Clerical Check Pre-Trans Blood Type Pre-Trans Bld Appearanc Pre-Trans BRITNEY Post-Trans Blood Type Post-Trans Spec Appear Post-Trans BRITNEY Reaction Pathol Review 02/22/18 02/22/18 02/22/18 14:20 15:37 22:00 WBC RBC Hgb Hct MCV MCH MCHC RDW Plt Count MPV Immature Gran % Neutrophils % Lymphocytes % Monocytes % Eosinophils % Basophils % Absolute Neutrophils Absolute Lymphocytes Absolute Monocytes Absolute Eosinophils Absolute Basophils Differential Comment RBC Morphology Polychromasia Hypochromasia Poikilocytosis Anisocytosis Sodium Cancelled Potassium Cancelled Chloride Cancelled Carbon Dioxide Cancelled Anion Gap Cancelled BUN Cancelled Creatinine Cancelled Estimated GFR/1.73 m2 Cancelled Glucose Cancelled Lactate Calcium Cancelled Magnesium Total Bilirubin AST ALT Alkaline Phosphatase Troponin I Total Protein Albumin Lipase Urine Color Red Urine Clarity Cloudy Urine pH 7.5 Ur Specific Martin 1.020 Urine Protein >=300 H Urine Ketones Negative Urine Blood Large H Urine Nitrite Negative Urine Bilirubin Negative Urine Urobilinogen 0.2 Ur Leukocyte Esterase Small H Urine RBC >50 H Urine WBC >50 Ur Epithelial Cells Not Applicable Urine Crystals Not Applicable Urine Bacteria Not Applicable Urine Mucus Not Applicable Ur Culture Indicated? Yes Urine Glucose Negative Patient ABO/Rh O Positive Antibody Screen Negative Crossmatch See Detail Reaction Clerical Check Pre-Trans Blood Type Pre-Trans Bld Appearanc Pre-Trans BRITNEY Post-Trans Blood Type Post-Trans Spec Appear Post-Trans BRITNEY Reaction Pathol Review 02/22/18 02/22/18 02/23/18 22:00 22:00 06:00 WBC RBC Hgb Cancelled Cancelled Hct Cancelled Cancelled MCV MCH MCHC RDW Plt Count MPV Immature Gran % Neutrophils % Lymphocytes % Monocytes % Eosinophils % Basophils % Absolute Neutrophils Absolute Lymphocytes Absolute Monocytes Absolute Eosinophils Absolute Basophils Differential Comment RBC Morphology Polychromasia Hypochromasia Poikilocytosis Anisocytosis Sodium Potassium Chloride Carbon Dioxide Anion Gap BUN Creatinine Estimated GFR/1.73 m2 Glucose Lactate Cancelled Calcium Magnesium Total Bilirubin AST ALT Alkaline Phosphatase Troponin I Total Protein Albumin Lipase Urine Color Urine Clarity Urine pH Ur Specific Martin Urine Protein Urine Ketones Urine Blood Urine Nitrite Urine Bilirubin Urine Urobilinogen Ur Leukocyte Esterase Urine RBC Urine WBC Ur Epithelial Cells Urine Crystals Urine Bacteria Urine Mucus Ur Culture Indicated? Urine Glucose Patient ABO/Rh Antibody Screen Crossmatch Reaction Clerical Check Pre-Trans Blood Type Pre-Trans Bld Appearanc Pre-Trans BRITNEY Post-Trans Blood Type Post-Trans Spec Appear Post-Trans BRITNEY Reaction Pathol Review 02/23/18 02/23/18 02/23/18 06:40 06:40 06:40 WBC 11.02 H RBC 2.69 L Hgb 7.7 L Hct 24.2 L MCV 90.0 MCH 28.6 MCHC 31.8 L RDW 14.8 H Plt Count 562 H MPV 8.8 Immature Gran % 0.5 Neutrophils % 75.2 Lymphocytes % 9.3 Monocytes % 14.5 Eosinophils % 0.2 Basophils % 0.3 Absolute Neutrophils 8.29 H Absolute Lymphocytes 1.02 L Absolute Monocytes 1.60 H Absolute Eosinophils 0.02 Absolute Basophils 0.03 Differential Comment RBC Morphology Polychromasia Hypochromasia Poikilocytosis Anisocytosis Sodium 139 Potassium 5.2 H Chloride 106 Carbon Dioxide 21.3 Anion Gap 11.7 H BUN 60 H Creatinine 6.56 H* Estimated GFR/1.73 m2 8.64 Glucose 93 Lactate 0.7 Calcium 8.5 Magnesium 1.8 Total Bilirubin AST ALT Alkaline Phosphatase Troponin I Total Protein Albumin Lipase Urine Color Urine Clarity Urine pH Ur Specific Martin Urine Protein Urine Ketones Urine Blood Urine Nitrite Urine Bilirubin Urine Urobilinogen Ur Leukocyte Esterase Urine RBC Urine WBC Ur Epithelial Cells Urine Crystals Urine Bacteria Urine Mucus Ur Culture Indicated? Urine Glucose Patient ABO/Rh Antibody Screen Crossmatch Reaction Clerical Check Pre-Trans Blood Type Pre-Trans Bld Appearanc Pre-Trans BRITNEY Post-Trans Blood Type Post-Trans Spec Appear Post-Trans BRITNEY Reaction Pathol Review 02/23/18 06:40 WBC RBC Hgb Hct MCV MCH MCHC RDW Plt Count MPV Immature Gran % Neutrophils % Lymphocytes % Monocytes % Eosinophils % Basophils % Absolute Neutrophils Absolute Lymphocytes Absolute Monocytes Absolute Eosinophils Absolute Basophils Differential Comment RBC Morphology Polychromasia Hypochromasia Poikilocytosis Anisocytosis Sodium Potassium Chloride Carbon Dioxide Anion Gap BUN Creatinine Estimated GFR/1.73 m2 Glucose Lactate Calcium Magnesium Total Bilirubin AST ALT Alkaline Phosphatase Troponin I Total Protein Albumin Lipase Urine Color Urine Clarity Urine pH Ur Specific Martin Urine Protein Urine Ketones Urine Blood Urine Nitrite Urine Bilirubin Urine Urobilinogen Ur Leukocyte Esterase Urine RBC Urine WBC Ur Epithelial Cells Urine Crystals Urine Bacteria Urine Mucus Ur Culture Indicated? Urine Glucose Patient ABO/Rh Antibody Screen Crossmatch Reaction Clerical Check No clerical errors Pre-Trans Blood Type O Positive Pre-Trans Bld Appearanc No hemolysis/icterus Pre-Trans BRITNEY Not Applicable Post-Trans Blood Type O Positive Post-Trans Spec Appear No hemolysis/icterus Post-Trans BRITNEY Negative Reaction Pathol Review Negative-complete
--- NOTE | 2018-02-23 11:08 | PCNE_ITS ---
Date of service: 02/23/18 Time of Service: 11:04 History of Present Illness Chief Complaint: bladder cancer, ARF, severe anemia, fevers Narrative: Cornelio is a 62 yo man who was diagnosed with bladder cancer this past summer after having gross hematuria. His tumor was determined to be obstructing both ureters. He has had bilateral nephrostomy tubes in place 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. They usually put out 4466-9164 ccs of urine on the right daily; 300-400 ccs on the left daily. They stopped draining any urine as of Wednesday, February 20. He has also had increased chronic gross hematuria. Prior to this admission, he was supposed to get bi-weekly blood draws for CBC and kidney function. I ordered transfusions as an outpatient prn for hgb less than 7. However, he never came in for his labs even though they were ordered for him. I spoke to his ex-, with whom he is now living again, and she said Cornelio was waiting for a phone call to go to the lab. Obviously, he did not fully understand the plan. After I saw Cornelio two weeks ago, I did try to move up his surgery with urologic oncology at [facility]. Unfortunately, as the surgery is an all-day affair, no sooner open OR time could be found. His surgery remains set for March [address] Cheng Pleitez. Yesterday, Cornelio came in to [facility] ER exhausted, anemic, with increasing amounts of gross hematuria. His reports that he would fill half the urinal jug with bright red blood. He reports he's been filling the urinal, ie putting out 1000 cc of gross hematuria daily since February 20. He's been weak. Sob. With intermittent chest pains. His labs have worsened. He is now in ARF. His nephrostomy tubes are draining minimal amounts according to nurses and . They were draining fine when I saw him 2 weeks ago as an outpatient. This admission is complicated by a FUO as high as 104.7 last night. He is on IV ceftriaxone. His fever is down, but not yet normal. Blood cultures, urine cultures are pending; CXR negative. He says he has had some pains, mostly in his chest, not in his suprapubic region. He is very dyspneic, even with talking. He still wants to pursue surgery if the surgical team will take him. He remains a full code. He has a 6 yo son at home whose mother (his second ) 2 years ago. He doesn't want to leave him an orphan. Assessment and Plan (1) Bladder cancer: Start date: 12/15/17 Current visit: Yes Status: Acute Given his decline, i.e. oliguria and increasing hematuria with severe anemia and stage 5 CKD and now FUO, he needs to be evaluated by his urologic team to see if he is still a surgical candidate. He also likely needs dialysis as he is uremic. He has had nausea, periods of confusion (evidenced by his inability to understand and follow through on our plan though he verbally was able to repeat it in the office). Dr. Mayen is working on transferring Cornelio to [facility]. I strongly support this plan. I did tell Cornelio that he may not be strong enough to survive a day long surgery. The team may not be able to operate. If so, he would be open to chemo and/or radiation. He wants to be as aggressive toward his cancer as he body allows. (2) Dehydration: Start date: 02/20/18 Current visit: Yes Status: Acute getting some IVF danger in that he is oliguric nurses flushing his nephrostomy tubes tumor may have blocked the tubes? not sure (3) Acute renal failure: Current visit: No Status: Acute acute on chronic failure was getting better when I saw him. Creatinine was down to 4. Now up to the mid- 6 again. Had been 8 when first diagnosed. Will need dialysis as he is symptomatic. (4) Goals of care, counseling/discussion: Current visit: Yes Status: Acute He is very clear that he wants to be treated by cancer team in whatever way they are willing to treat him. He recognizes that he is very weak and frail. I think it is in his best interest to be seen again by urology in this current condition so they can guide him in decision making; surgery may need to be postponed; he may no longer be a surgical candidate. Defer to urology. Dr Mayen working on transfer. REcommend that Palliative care at [facility] continues to work with him if he is accepted in transfer. Review of Systems Constitutional Reports anorexia, Reports daytime sleepiness, Reports fatigue, Reports fever(s) , Reports lethargy, Reports poor appetite, Reports weakness and Reports weight loss Eyes Reports dry eyes and Reports requires corrective lenses ENT Reports dizziness, Reports dry mouth and Reports disequilibrium Cardiovascular Reports chest pain, Reports palpitations and Reports dyspnea on exertion Respiratory Reports dyspnea on exertion Gastrointestinal Reports early satiety, Reports dyspepsia and Reports nausea Genitourinary Reports hematuria and Reports oliguria Musculoskeletal Reports muscle weakness Neurologic Reports dizziness, Reports disequilibrium and Reports weakness Psychiatric Reports change in appetite Endocrine Reports fatigue and Reports palpitations Hematologic/Lymphatic Reports easy bleeding PFSH Family History Mother No problems noted. Father No problems noted. Brother No problems noted. 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, can't current occupational exposures/hazards: Yes Hx Recent Travel: No well-balanced diet: rarely or never eating out: rarely or never Smoking/Tobacco Use Status: Current every day tobacco type: cigarettes quit status: considering quitting counseling given: support program and counseling >3 minutes alcohol intake: former substance use type: marijuana seatbelt use: always drive intox or ride w/ intox otr truck driver: No working smoke detector in home: Yes fire extinguisher in home: No carbon monox detector in home: Yes firearms in home: Yes firearms unloaded and locked: No Surgical History History of ankle surgery (Acute) History of biopsy of bladder (Acute) Previous back surgery (Acute) Exam Const General: cooperative, disheveled, frail appearing and ill appearing Nutritional Appearance: cachectic, malnourished and underweight Orientation: alert, awake and oriented x3 HENMT Head: normocephalic Ears: hearing grossly normal bilaterally Face and sinus: dry mucous membranes Mouth: malodorous breath Eyes Conjunctivae: conjunctivae normal Sclera: scleral abnormality (extremely pale) bilaterally Neck Neck: no lymphadenopathy Resp Effort & Inspection: normal respiratory effort and able to speak in complete sentences Auscultation: clear to auscultation bilaterally and diminished lung sounds Cardio Jugular venous pressure: no JVD Rate: tachycardic Rhythm: regular rhythm Heart Sounds: S1 normal and S2 normal GI Inspection: scaphoid Palpation: soft and tender suprapubicly Auscultation: normal bowel sounds Skin General skin exam: dry skin and pallor Neuro General: alert, awake and oriented x3 Cognition: normal cognition Speech: speech normal Results Last Vital Signs Temp 100.8 F H 02/23/18 10:27 Pulse 93 H 02/23/18 09:48 Resp 20 02/23/18 09:00 BP 129/83 02/23/18 09:00 Pulse Ox 98 02/23/18 09:00 Labs : 02/23/18 06:40 02/23/18 06:40 Laboratory Results - last 24 hr 02/22/18 02/22/18 02/22/18 12:35 12:35 12:35 WBC 10.67 RBC 2.29 L Hgb 6.4 L* Hct 20.9 L* MCV 91.3 MCH 27.9 MCHC 30.6 L RDW 15.7 H Plt Count 703 H MPV 8.7 Immature Gran % 0.7 Neutrophils % 72.3 Lymphocytes % 11.8 Monocytes % 14.6 Eosinophils % 0.1 Basophils % 0.5 Absolute Neutrophils 7.72 H Absolute Lymphocytes 1.26 Absolute Monocytes 1.56 H Absolute Eosinophils 0.01 Absolute Basophils 0.05 Differential Comment Diff reviewed RBC Morphology See below Polychromasia Present Hypochromasia 1+ Poikilocytosis 2+ Anisocytosis 1+ Sodium 135 L Potassium 5.5 H Chloride 99 Carbon Dioxide 22.7 Anion Gap 13.3 H BUN 62 H Creatinine 6.57 H* Estimated GFR/1.73 m2 8.62 Glucose 137 H Lactate 2.8 H Calcium 9.0 Magnesium Total Bilirubin 0.3 AST 11 L ALT 11 L Alkaline Phosphatase 115 Troponin I < 0.02 Total Protein 7.4 Albumin 2.3 L Lipase 71 L Urine Color Urine Clarity Urine pH Ur Specific [place] Urine Protein Urine Ketones Urine Blood Urine Nitrite Urine Bilirubin Urine Urobilinogen Ur Leukocyte Esterase Urine RBC Urine WBC Ur Epithelial Cells Urine Crystals Urine Bacteria Urine Mucus Ur Culture Indicated? Urine Glucose Patient ABO/Rh Antibody Screen Crossmatch Reaction Clerical Check Pre-Trans Blood Type Pre-Trans Bld Appearanc Pre-Trans BRITNEY Post-Trans Blood Type Post-Trans Spec Appear Post-Trans BRITNEY Reaction Pathol Review 02/22/18 02/22/18 02/22/18 14:20 15:37 22:00 WBC RBC Hgb Hct MCV MCH MCHC RDW Plt Count MPV Immature Gran % Neutrophils % Lymphocytes % Monocytes % Eosinophils % Basophils % Absolute Neutrophils Absolute Lymphocytes Absolute Monocytes Absolute Eosinophils Absolute Basophils Differential Comment RBC Morphology Polychromasia Hypochromasia Poikilocytosis Anisocytosis Sodium Cancelled Potassium Cancelled Chloride Cancelled Carbon Dioxide Cancelled Anion Gap Cancelled BUN Cancelled Creatinine Cancelled Estimated GFR/1.73 m2 Cancelled Glucose Cancelled Lactate Calcium Cancelled Magnesium Total Bilirubin AST ALT Alkaline Phosphatase Troponin I Total Protein Albumin Lipase Urine Color Red Urine Clarity Cloudy Urine pH 7.5 Ur Specific [place] 1.020 Urine Protein >=300 H Urine Ketones Negative Urine Blood Large H Urine Nitrite Negative Urine Bilirubin Negative Urine Urobilinogen 0.2 Ur Leukocyte Esterase Small H Urine RBC >50 H Urine WBC >50 Ur Epithelial Cells Not Applicable Urine Crystals Not Applicable Urine Bacteria Not Applicable Urine Mucus Not Applicable Ur Culture Indicated? Yes Urine Glucose Negative Patient ABO/Rh O Positive Antibody Screen Negative Crossmatch See Detail Reaction Clerical Check Pre-Trans Blood Type Pre-Trans Bld Appearanc Pre-Trans BRITNEY Post-Trans Blood Type Post-Trans Spec Appear Post-Trans BRITNEY Reaction Pathol Review 02/22/18 02/22/18 02/23/18 22:00 22:00 06:00 WBC RBC Hgb Cancelled Cancelled Hct Cancelled Cancelled MCV MCH MCHC RDW Plt Count MPV Immature Gran % Neutrophils % Lymphocytes % Monocytes % Eosinophils % Basophils % Absolute Neutrophils Absolute Lymphocytes Absolute Monocytes Absolute Eosinophils Absolute Basophils Differential Comment RBC Morphology Polychromasia Hypochromasia Poikilocytosis Anisocytosis Sodium Potassium Chloride Carbon Dioxide Anion Gap BUN Creatinine Estimated GFR/1.73 m2 Glucose Lactate Cancelled Calcium Magnesium Total Bilirubin AST ALT Alkaline Phosphatase Troponin I Total Protein Albumin Lipase Urine Color Urine Clarity Urine pH Ur Specific [place] Urine Protein Urine Ketones Urine Blood Urine Nitrite Urine Bilirubin Urine Urobilinogen Ur Leukocyte Esterase Urine RBC Urine WBC Ur Epithelial Cells Urine Crystals Urine Bacteria Urine Mucus Ur Culture Indicated? Urine Glucose Patient ABO/Rh Antibody Screen Crossmatch Reaction Clerical Check Pre-Trans Blood Type Pre-Trans Bld Appearanc Pre-Trans BRITNEY Post-Trans Blood Type Post-Trans Spec Appear Post-Trans BRITNEY Reaction Pathol Review 02/23/18 02/23/18 02/23/18 06:40 06:40 06:40 WBC 11.02 H RBC 2.69 L Hgb 7.7 L Hct 24.2 L MCV 90.0 MCH 28.6 MCHC 31.8 L RDW 14.8 H Plt Count 562 H MPV 8.8 Immature Gran % 0.5 Neutrophils % 75.2 Lymphocytes % 9.3 Monocytes % 14.5 Eosinophils % 0.2 Basophils % 0.3 Absolute Neutrophils 8.29 H Absolute Lymphocytes 1.02 L Absolute Monocytes 1.60 H Absolute Eosinophils 0.02 Absolute Basophils 0.03 Differential Comment RBC Morphology Polychromasia Hypochromasia Poikilocytosis Anisocytosis Sodium 139 Potassium 5.2 H Chloride 106 Carbon Dioxide 21.3 Anion Gap 11.7 H BUN 60 H Creatinine 6.56 H* Estimated GFR/1.73 m2 8.64 Glucose 93 Lactate 0.7 Calcium 8.5 Magnesium 1.8 Total Bilirubin AST ALT Alkaline Phosphatase Troponin I Total Protein Albumin Lipase Urine Color Urine Clarity Urine pH Ur Specific [place] Urine Protein Urine Ketones Urine Blood Urine Nitrite Urine Bilirubin Urine Urobilinogen Ur Leukocyte Esterase Urine RBC Urine WBC Ur Epithelial Cells Urine Crystals Urine Bacteria Urine Mucus Ur Culture Indicated? Urine Glucose Patient ABO/Rh Antibody Screen Crossmatch Reaction Clerical Check Pre-Trans Blood Type Pre-Trans Bld Appearanc Pre-Trans BRITNEY Post-Trans Blood Type Post-Trans Spec Appear Post-Trans BRITNEY Reaction Pathol Review 02/23/18 06:40 WBC RBC Hgb Hct MCV MCH MCHC RDW Plt Count MPV Immature Gran % Neutrophils % Lymphocytes % Monocytes % Eosinophils % Basophils % Absolute Neutrophils Absolute Lymphocytes Absolute Monocytes Absolute Eosinophils Absolute Basophils Differential Comment RBC Morphology Polychromasia Hypochromasia Poikilocytosis Anisocytosis Sodium Potassium Chloride Carbon Dioxide Anion Gap BUN Creatinine Estimated GFR/1.73 m2 Glucose Lactate Calcium Magnesium Total Bilirubin AST ALT Alkaline Phosphatase Troponin I Total Protein Albumin Lipase Urine Color Urine Clarity Urine pH Ur Specific [place] Urine Protein Urine Ketones Urine Blood Urine Nitrite Urine Bilirubin Urine Urobilinogen Ur Leukocyte Esterase Urine RBC Urine WBC Ur Epithelial Cells Urine Crystals Urine Bacteria Urine Mucus Ur Culture Indicated? Urine Glucose Patient ABO/Rh Antibody Screen Crossmatch Reaction Clerical Check No clerical errors Pre-Trans Blood Type O Positive Pre-Trans Bld Appearanc No hemolysis/icterus Pre-Trans BRITNEY Not Applicable Post-Trans Blood Type O Positive Post-Trans Spec Appear No hemolysis/icterus Post-Trans BRITNEY Negative Reaction Pathol Review Negative-complete
--- NOTE | 2018-02-23 12:03 | PHARADMIT ---
Addendum entered by Jayshree Knight 03/01/18 15:18: Pharmacy Note Subjective left nephrostomy tube not draining as much as the right per morning report Objective VS-okay Na-134 SCr-4.51(down) h/h-stable Assessment scheduled docusate, senna, fentanyl patch, and PRN miralax ordered levofloxacin continues Plan has appt at [facility] tomorrow, discharge tomorrow so pt can make appt? Original Note: Addendum entered by Blaise Mota III 02/25/18 09:35: Pharmacy Note Subjective MD would like to transfer to [facility] to be with current team of mD who have been following. Had Urology & Palliative Care consults Objective VS-OK Afebrile SCr-5.42 Lytes-OK H&H-8.8/27.2 (post-transfusion) WBC-10.63 having BMs Assessment Levaquin 250mg IV q48hr continues Plan Awaiting word from [facility] Original Note: Addendum entered by Prema Aguilera 02/24/18 17:29: Pharmacy Note Subjective Tele-sinus in 70-80's, has bilateral Nephrostomy tubes being flushed Objective Fevers ~ midnight x 4, SCr 6.07 (CrCl~9ml/min today) H/H 6.9/21.6 Micro urine: Proteus Hauseri > 100k colonies Assessment dc'd Rocephin and changed to Levaquin 500mg x 1 then 250mg IV q48h renally adjusted One unit of blood today Urology consult: Not much can be done at our facility, pt goes to [facility], therefore treating anemia Plan Watch for improved H/H, SCr if possible, follow Anbx coverage and dose changes Original Note: Admission Pharmacy Clinical Review DEHYDRATION (Bladder Cancer) Code Status Full Code Current Weight Wgt-54 kg Renally Cleared and Narrow Therapeutic Index Meds CrCl~ 8 mL/min Meds-OK QTc Value / Action Taken NA BP Control, Fever BP- 129/83 Tmax Electrolytes reviewed Na- 139 K+5.2 Mag-1.8 DVT Prophylaxis ?(bleed) Opiate Usage / Scheduled Bowel Regimen Ordered Yes Yes Plt/SCr for Heparin / Enoxaparin Plts-562 SCr-6.56 INR for Warfarin na H/H stable, WBC/Bands H&H- 7.7/24.2 WBC-11.02 Antibiotic appropriateness [place] Cultures and Sensitivities Blood, Urine- Pending Surgical ABX d/c within 24 hr na DM control / Insulin Dosing BG-93 Heart Failure (Check EF%) (EDMUND's, B-Block, Diuretics) Coreg, IV to PO Switch No Home Meds Reviewed Yes Home Meds Not Ordered Ordered Comments
[2018-02-23] MEDS: Ondansetron O.D.T. 4 MG TABEF PO (16:01)
--- NOTE | 2018-02-23 18:33 | PGE_ITS ---
Assessment and Plan (1) Symptomatic anemia: Current visit: Yes Status: Acute S/p transfusion 2 units pRBC's. Continue to monitor H/H as blood losses are ongoing. (2) Hematuria: Current visit: Yes Status: Acute Due to known bladder mass. Patient refuses catheterization. Urology consulted. (3) Bladder cancer: Current visit: Yes Status: Acute As above. Patient would still like aggressive care and would like to be full code. Discussed with patient's urologist at [facility], who feels medical issues need to be optimized prior to surgery. (4) Dehydration: Current visit: Yes Status: Acute Continue IV hydration (5) Chronic kidney disease, stage 5: Current visit: Yes Status: Acute Continue IV fluids, monitoring Cr and K. Expect this will improve slightly now with the draining R nephrostomy. Not requiring emergent HD, but the conversation was initiated with [facility]. (6) Hyperkalemia: Current visit: Yes Status: Acute Improved. Continue IVF and monior. (7) Enteritis: Current visit: Yes Status: Acute Likely uremic enteritis. Ultimately, the patient will require HD, but as there is urinary output now, it is not required emergently. (8) UTI (urinary tract infection): Current visit: Yes Status: Acute Due to GNR, present on admission. Continue empiric rocephin; await culture /sensitivities. Subjective Interval history since last seen: The patient was febrile overnight. The patient no longer felt dizzy or nauseated today. He denies any chest pain, shortness of breath, or abdominal pain. He continues to have hematuria. He had his bilateral nephrostomy tubes flushed - the right one immediately started to put out a lot of cloudy output. The left one had minimal drainage. The patient was evaluated by palliative care (Dr Roberson), whose assitance with this case is greatly appreciated. The patient was discussed with [facility] and his urologist at [facility] Dr Aguilar - unfortunately, there are no beds available in [facility]. Exam Narrative Exam Narrative: General: Cachectic, ill appearing male, pale, laying in bed, actually looks better than yesterday Psych: appears depressed; in a more agreeable mood today Neuro: A&Ox3, CN II-XII intact, no focal deficits Skin: dry, pale, decreased turgor HEENT: Atraumatic, normocephalic, Dry MM, EOMI, no submandibular or cervical lymphadenopathy, no goiter or JVD Heart: RRR, no m/r/g Lungs: CTAB Abdomen: soft, nontender, nondistended B nephrostomy tubes in place; R nephrostomy tube with thick cloudy output Extremities: 1+ pedal pulses B; no clubbing or cyanosis. Trace edema in B feet Objective Objective Clinical Data: Abnormal lab results 02/22/18 02/23/18 02/23/18 Range/Units 14:20 06:40 06:40 WBC 11.02 H (4.4-10.8) k/cumm RBC 2.69 L (4.50-6.00) m/cumm Hgb 7.7 L (13.5-17.5) g/dL Hct 24.2 L (40.0-50.0) % MCHC 31.8 L (32.0-36.0) g/dL RDW 14.8 H (11.8-14.1) % Plt Count 562 H (130-400) x1000/uL Absolute Neutrophils 8.29 H (1.2-6.7) k/cumm Absolute Lymphocytes 1.02 L (1.2-3.4) k/cumm Absolute Monocytes 1.60 H (0.11-0.7) k/cumm Potassium 5.2 H (3.5-5.1) mmol/L Anion Gap 11.7 H (3-11) mmol/L BUN 60 H (7-18) mg/dL Creatinine 6.56 H* (0.70-1.30) mg/dL Crossmatch See Detail Vital Signs Temperature 37.4 C 02/23/18 11:50 Temperature Source Temporal Artery Scan 02/23/18 11:50 Pulse 89 02/23/18 17:21 Pulse 93 H 02/23/18 17:30 Respiratory Rate 19 02/23/18 17:30 Respiratory Effort Non-Labored 02/23/18 09:48 Respiratory Depth Normal 02/23/18 09:48 Respiratory Pattern Normal 02/23/18 09:48 Blood Pressure 129/78 02/23/18 17:21 Blood Pressure Mean 91 02/23/18 17:21 Blood Pressure Position Supine 02/22/18 23:00 Pulse Oximetry 98 02/23/18 17:21 Oxygen Delivery Method Room Air 02/23/18 07:05 Oxygen Flow Rate 0 02/23/18 07:05 Pain Level 0 02/22/18 23:00 Comment 02/23/18 10:27 Intake & Output 02/22/18 02/23/18 02/23/18 23:59 11:59 23:59 Intake Total 2678 / 2678 1350 / 1350 300 / 300 Output Total 375 / 375 600 / 600 400 / 400 Balance 2303 / 2303 750 / 750 -100 / -100 Weight 53.2 kg 54 kg Intake: IV 2019 1050 / 1050 50 / 50 Oral 300 / 300 250 / 250 Blood Product 633 / 633 Rbc Leuko Reduced Unit 333 / 333 [id number] Rbc Leuko Reduced Unit 300 / 300 [id number] Other 25 / 25 Rbc Leuko Reduced Unit 25 / 25 [id number] Output: Urine 375 / 375 400 / 400 400 / 400 Stool 200 / 200 Other: Urine Color Dark Red Webb Bright Red Urine Appearance Sediment Clear Hematuria Urine Odor None Normal Comment Juliana Blood passed into the urinal. No active external bleeding. Appears to be juliana blood voided into the urinal. 200mls rt urostomy bag Stool Occult Blood Negative Positive Stool Size Small Large Stool Characteristics Liquid Liquid Brown Bloody Voiding Methods Urinal Urinal Urinal Laboratory Results WBC 11.02 k/cumm (4.4-10.8) H 02/23/18 06:40 RBC 2.69 m/cumm (4.50-6.00) L 02/23/18 06:40 Hgb 7.7 g/dL (13.5-17.5) L 02/23/18 06:40 Hct 24.2 % (40.0-50.0) L 02/23/18 06:40 MCV 90.0 fL (80-95) 02/23/18 06:40 MCH 28.6 pg (27.0-33.0) 02/23/18 06:40 MCHC 31.8 g/dL (32.0-36.0) L 02/23/18 06:40 RDW 14.8 % (11.8-14.1) H 02/23/18 06:40 Plt Count 562 x1000/uL (130-400) H 02/23/18 06:40 MPV 8.8 fL (8.0-11.0) 02/23/18 06:40 Immature Gran % 0.5 02/23/18 06:40 Neutrophils % 75.2 02/23/18 06:40 Lymphocytes % 9.3 02/23/18 06:40 Monocytes % 14.5 02/23/18 06:40 Eosinophils % 0.2 02/23/18 06:40 Basophils % 0.3 02/23/18 06:40 Absolute Neutrophils 8.29 k/cumm (1.2-6.7) H 02/23/18 06:40 Absolute Lymphocytes 1.02 k/cumm (1.2-3.4) L 02/23/18 06:40 Absolute Monocytes 1.60 k/cumm (0.11-0.7) H 02/23/18 06:40 Absolute Eosinophils 0.02 k/cumm (0.0-0.7) 02/23/18 06:40 Absolute Basophils 0.03 k/cumm (0.0-0.2) 02/23/18 06:40 Differential Comment Diff reviewed 02/22/18 12:35 RBC Morphology See below 02/22/18 12:35 Polychromasia Present 02/22/18 12:35 Hypochromasia 1+ 02/22/18 12:35 Poikilocytosis 2+ 02/22/18 12:35 Anisocytosis 1+ 02/22/18 12:35 Sodium 139 mmol/L (136-145) 02/23/18 06:40 Potassium 5.2 mmol/L (3.5-5.1) H 02/23/18 06:40 Chloride 106 mmol/L (98-107) 02/23/18 06:40 Carbon Dioxide 21.3 mmol/L (21.0-32.0) 02/23/18 06:40 Anion Gap 11.7 mmol/L (3-11) H 02/23/18 06:40 BUN 60 mg/dL (7-18) H 02/23/18 06:40 Creatinine 6.56 mg/dL (0.70-1.30) H* 02/23/18 06:40 Estimated GFR/1.73 m2 8.64 (mL/min/1.73m2) 02/23/18 06:40 Glucose 93 mg/dL (70-100) 02/23/18 06:40 Lactate 0.7 mmol/L (0.6-1.4) 02/23/18 06:40 Calcium 8.5 mg/dL (8.5-10.1) 02/23/18 06:40 Magnesium 1.8 mg/dL (1.8-2.4) 02/23/18 06:40 Total Bilirubin 0.3 mg/dL (0.2-1.0) 02/22/18 12:35 AST 11 U/L (15-37) L 02/22/18 12:35 ALT 11 U/L (12-78) L 02/22/18 12:35 Alkaline Phosphatase 115 U/L (46-116) 02/22/18 12:35 Troponin I < 0.02 ng/mL (0.00-0.06) 02/22/18 12:35 Total Protein 7.4 g/dL (6.4-8.2) 02/22/18 12:35 Albumin 2.3 g/dL (3.4-5.0) L 02/22/18 12:35 Lipase 71 U/L (73-393) L 02/22/18 12:35 Urine Color Red (Yellow) 02/22/18 15:37 Urine Clarity Cloudy 02/22/18 15:37 Urine pH 7.5 (5-8) 02/22/18 15:37 Ur Specific [place] 1.020 (1.005-1.025) 02/22/18 15:37 Urine Protein >=300 mg/dL (Negative) H 02/22/18 15:37 Urine Ketones Negative mg/dL (Negative) 02/22/18 15:37 Urine Blood Large (Negative) H 02/22/18 15:37 Urine Nitrite Negative (Negative) 02/22/18 15:37 Urine Bilirubin Negative (Negative) 02/22/18 15:37 Urine Urobilinogen 0.2 EU/dL (Up TO 0.2) 02/22/18 15:37 Ur Leukocyte Esterase Small (Negative) H 02/22/18 15:37 Urine RBC >50 (0-2) H 02/22/18 15:37 Urine WBC >50 HPF (0-5) 02/22/18 15:37 Ur Epithelial Cells Not Applicable 02/22/18 15:37 Urine Crystals Not Applicable 02/22/18 15:37 Urine Bacteria Not Applicable 02/22/18 15:37 Urine Mucus Not Applicable 02/22/18 15:37 Ur Culture Indicated? Yes 02/22/18 15:37 Urine Glucose Negative mg/dL (Negative) 02/22/18 15:37 Patient ABO/Rh O Positive 02/22/18 14:20 Antibody Screen Negative 02/22/18 14:20 Crossmatch See Detail 02/22/18 14:20 Reaction Clerical Check No clerical errors 02/23/18 06:40 Pre-Trans Blood Type O Positive 02/23/18 06:40 Pre-Trans Bld Appearanc No hemolysis/icterus 02/23/18 06:40 Pre-Trans BRITNEY Not Applicable 02/23/18 06:40 Post-Trans Blood Type O Positive 02/23/18 06:40 Post-Trans Spec Appear No hemolysis/icterus 02/23/18 06:40 Post-Trans BRITNEY Negative 02/23/18 06:40 Reaction Pathol Review Negative-complete 02/23/18 06:40
[2018-02-23] MEDS: Nicotine 14 MG/24 HR PATCH TD (20:12)
[2018-02-23] MEDS: Atorvastatin 40 MG TAB 80 MG PO (21:46)
[2018-02-24] VITALS (20 sets, daily range): BP systolic 114–163; BP diastolic 73–99; PULSE 82–106; RESP 16–20; TEMP 36.7–38.8; O2SAT 94–99
[2018-02-24 07:36] LABS: Abs Immature Grans 0.08 k/cumm (0.0-0.09); Absolute Basophil Count 0.05 k/cumm (0.0-0.2); Absolute Eosinophil Count 0.19 k/cumm (0.0-0.7); Absolute Lymphocyte Count 1.06 k/cumm (1.2-3.4); Absolute Monocyte Count 1.44 k/cumm (0.11-0.7); Absolute Neutrophil Count 6.46 k/cumm (1.2-6.7); Basophils % 0.5; HCT 21.6 % (40.0-50.0); Immature Grans % 0.9; Lymphocytes % 11.4; Mean Corp. HGB Concentration 31.9 g/dL (32.0-36.0); Mean Corpuscular Volume 90.8 fL (80-95); Mean Platelet Volume 9.3 fL (8.0-11.0); Monocytes % 15.5; Neutrophils % 69.7; Platelet Count 570 x1000/uL (130-400); RBC 2.38 m/cumm (4.50-6.00); RBC Distribution Width 15.2 % (11.8-14.1); White Blood Cell Count 9.28 k/cumm (4.4-10.8)
[2018-02-24 07:38] LABS: HGB 6.9 g/dL (13.5-17.5)
[2018-02-24 07:48] LABS: Anion Gap 13.3 mmol/L (3-11); BUN 56 mg/dL (7-18); CO2 18.7 mmol/L (21.0-32.0); Calcium 8.3 mg/dL (8.5-10.1); Chloride 107 mmol/L (98-107); Estimated GFR 9.45 (mL/min/1.73m2); Glucose 94 mg/dL (70-100); Magnesium 1.7 mg/dL (1.8-2.4); Potassium 4.4 mmol/L (3.5-5.1); Sodium 139 mmol/L (136-145)
[2018-02-24 07:50] LABS: CREATININE 6.07 mg/dL (0.70-1.30)
[2018-02-24] MEDS: Normal Saline 1,000 ML 100 ML IV (08:00)
[2018-02-24] MEDS: Nicotine 14 MG/24 HR PATCH TD (09:08)
[2018-02-24] MEDS: Carvedilol 3.125 MG TAB PO ×2 (09:10→19:48)
--- NOTE | 2018-02-24 11:11 | W.UROLOGYCON ---
Date of service: 02/24/18 Time of Service: 10:19 History of Present Illness Chief Complaint: Bladder cancer Narrative: This is a 64-year-old gentleman who presented to our facility about 2 months ago. At that time he had a hemoglobin of 4 and a serum creatinine over 8 he was identified as having a large bladder mass occluding both kidneys appear he was not felt to be a surgical candidate at our facility. He initially underwent placement of bilateral nephrostomy tubes. His serum creatinine came down to a kai between 4 and 5 ng/mL. He underwent transurethral resection of a bladder mass at [facility]. The TURBT was done for tissue diagnosis rather than complete resection. 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 The patient also was identified as having an increasing pulmonary nodule in the left lower lobe. A PET/CT was recommended but the patient refused The patient continued to have bleeding and bladder pain. He required multiple transfusions as an outpatient. His case was presented at the [facility] urology tumor board. It has been recommended and planned that he have a palliative cystectomy with ileoconduit diversion mostly to control his bleeding. There was also consideration for palliative radiation should he not be able to tolerate surger. He was referred to medical oncology to consider systemic chemotherapy as well. The patient presented to our facility with decreased output from his nephrostomy tubes, worsening renal function, continued hematuria and anemia. He has received 2 units of blood. I have been asked to see him regarding his persistent hematuria. Typically his left nephrostomy tube has not put out much urine output. The bulk of his output comes from the right tube. When the tubes become occluded, he voids much more with increased frequency and clots. He refused Giron catheter placement on admission Review of Systems Constitutional Reports fatigue and Denies fever(s) Cardiovascular Denies chest pain, Denies diaphoresis and Denies syncope Respiratory Denies chest congestion Gastrointestinal Denies nausea and Denies vomiting Musculoskeletal Reports myalgias Neurologic Denies syncope Endocrine Reports fatigue [facility] Family History Mother No problems noted. Father No problems noted. Brother No problems noted. 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, 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 current occupational exposures/hazards: Yes Hx Recent Travel: No well-balanced diet: rarely or never eating out: rarely or never Smoking/Tobacco Use Status: Current every day tobacco type: cigarettes quit status: considering quitting counseling given: support program and counseling >3 minutes alcohol intake: former substance use type: marijuana seatbelt use: always drive intox or ride w/ intox form setter/driver: No working smoke detector in home: Yes fire extinguisher in home: No carbon monox detector in home: Yes firearms in home: Yes firearms unloaded and locked: No Surgical History History of ankle surgery (Acute) History of biopsy of bladder (Acute) Previous back surgery (Acute) Exam Narrative Exam Narrative: He appears chronically ill. He does not appear septic or toxic. Both nephrostomy tubes are in place. Thick material is present in the left nephrostomy tube bag. More clear urine is present in the right nephrostomy tube bag. He is awake, alert and oriented. I hand irrigated both nephrostomy tubes and connecting tubing on his current set up. I aspirated some mucus type plugs from each side as well Results Last Vital Signs Temp 36.7 C 02/24/18 07:35 Pulse 101 H 02/24/18 07:44 Resp 20 02/24/18 07:35 BP 138/81 02/24/18 07:35 Pulse Ox 94 L 02/24/18 07:35 Labs : 02/24/18 06:50 02/24/18 06:50 Laboratory Results - last 24 hr 02/22/18 02/22/18 02/24/18 14:20 15:37 06:50 WBC RBC Hgb Hct MCV MCH MCHC RDW Plt Count MPV Immature Gran % Neutrophils % Lymphocytes % Monocytes % Eosinophils % Basophils % Absolute Neutrophils Absolute Lymphocytes Absolute Monocytes Absolute Eosinophils Absolute Basophils Sodium 139 Potassium 4.4 Chloride 107 Carbon Dioxide 18.7 L Anion Gap 13.3 H BUN 56 H Creatinine 6.07 H* Estimated GFR/1.73 m2 9.45 Glucose 94 Calcium 8.3 L Magnesium 1.7 L Urine Color Red Urine Clarity Cloudy Urine pH 7.5 Ur Specific [place] 1.020 Urine Protein >=300 H Urine Ketones Negative Urine Blood Large H Urine Nitrite Negative Urine Bilirubin Negative Urine Urobilinogen 0.2 Ur Leukocyte Esterase Small H Urine RBC >50 H Urine WBC >50 Ur Culture Indicated? Yes Urine Glucose Negative Patient ABO/Rh O Positive Antibody Screen Negative Crossmatch See Detail 02/24/18 06:50 WBC 9.28 RBC 2.38 L Hgb 6.9 L* Hct 21.6 L MCV 90.8 MCH 29.0 MCHC 31.9 L RDW 15.2 H Plt Count 570 H MPV 9.3 Immature Gran % 0.9 Neutrophils % 69.7 Lymphocytes % 11.4 Monocytes % 15.5 Eosinophils % 2.0 Basophils % 0.5 Absolute Neutrophils 6.46 Absolute Lymphocytes 1.06 L Absolute Monocytes 1.44 H Absolute Eosinophils 0.19 Absolute Basophils 0.05 Sodium Potassium Chloride Carbon Dioxide Anion Gap BUN Creatinine Estimated GFR/1.73 m2 Glucose Calcium Magnesium Urine Color Urine Clarity Urine pH Ur Specific [place] Urine Protein Urine Ketones Urine Blood Urine Nitrite Urine Bilirubin Urine Urobilinogen Ur Leukocyte Esterase Urine RBC Urine WBC Ur Culture Indicated? Urine Glucose Patient ABO/Rh Antibody Screen Crossmatch Assessment and Plan (1) Bladder cancer: Current visit: Yes Status: Acute I am afraid that I have very little to offer this gentleman here at our facility. His hematuria is certainly due to his known bladder cancer. He is not a surgical candidate at our facility and he is already under the care of the urology service at [facility]. Plans for a palliative cystectomy are in the works. He was supposed to see medical oncology this week, but that appointment was canceled when he was admitted. I offered the patient a Giron catheter. I would not expect the catheter to stop his bleeding and the patient adamantly refuses to have a catheter placed. In terms of his nephrostomy tubes, we do not have facilities or interventional radiology to change or replace his nephrostomy tubes. The only thing we can do at our facility is to irrigate the tubes appear
[2018-02-24] MEDS: Acetaminophen 325 MG TAB 650 MG PO (11:28)
--- NOTE | 2018-02-24 11:28 | UCONE_ITS ---
Date of service: 02/24/18 Time of Service: 10:19 History of Present Illness Chief Complaint: Bladder cancer Narrative: This is a 64-year-old gentleman who presented to our facility about 2 months ago. At that time he had a hemoglobin of 4 and a serum creatinine over 8 he was identified as having a large bladder mass occluding both kidneys appear he was not felt to be a surgical candidate at our facility. He initially underwent placement of bilateral nephrostomy tubes. His serum creatinine came down to a kai between 4 and 5 ng/mL. He underwent transurethral resection of a bladder mass at [facility]. The TURBT was done for tissue diagnosis rather than complete resection. 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 The patient also was identified as having an increasing pulmonary nodule in the left lower lobe. A PET/CT was recommended but the patient refused The patient continued to have bleeding and bladder pain. He required multiple transfusions as an outpatient. His case was presented at the [facility] urology tumor board. It has been recommended and planned that he have a palliative cystectomy with ileoconduit diversion mostly to control his bleeding. There was also consideration for palliative radiation should he not be able to tolerate surger. He was referred to medical oncology to consider systemic chemotherapy as well. The patient presented to our facility with decreased output from his nephrostomy tubes, worsening renal function, continued hematuria and anemia. He has received 2 units of blood. I have been asked to see him regarding his persistent hematuria. Typically his left nephrostomy tube has not put out much urine output. The bulk of his output comes from the right tube. When the tubes become occluded, he voids much more with increased frequency and clots. He refused Giron catheter placement on admission Review of Systems Constitutional Reports fatigue and Denies fever(s) Cardiovascular Denies chest pain, Denies diaphoresis and Denies syncope Respiratory Denies chest congestion Gastrointestinal Denies nausea and Denies vomiting Musculoskeletal Reports myalgias Neurologic Denies syncope Endocrine Reports fatigue [facility] Family History Mother No problems noted. Father No problems noted. Brother No problems noted. 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 current occupational exposures/hazards: Yes Hx Recent Travel: No well-balanced diet: rarely or never eating out: rarely or never Smoking/Tobacco Use Status: Current every day tobacco type: cigarettes quit status: considering quitting counseling given: support program and counseling >3 minutes alcohol intake: former substance use type: marijuana seatbelt use: always drive intox or ride w/ intox delivery motorcycle driver: No working smoke detector in home: Yes fire extinguisher in home: No carbon monox detector in home: Yes firearms in home: Yes firearms unloaded and locked: No Surgical History History of ankle surgery (Acute) History of biopsy of bladder (Acute) Previous back surgery (Acute) Exam Narrative Exam Narrative: He appears chronically ill. He does not appear septic or toxic. Both nephrostomy tubes are in place. Thick material is present in the left nephrostomy tube bag. More clear urine is present in the right nephrostomy tube bag. He is awake, alert and oriented. I hand irrigated both nephrostomy tubes and connecting tubing on his current set up. I aspirated some mucus type plugs from each side as well Results Last Vital Signs Temp 36.7 C 02/24/18 07:35 Pulse 101 H 02/24/18 07:44 Resp 20 02/24/18 07:35 BP 138/81 02/24/18 07:35 Pulse Ox 94 L 02/24/18 07:35 Labs : 02/24/18 06:50 02/24/18 06:50 Laboratory Results - last 24 hr 02/22/18 02/22/18 02/24/18 14:20 15:37 06:50 WBC RBC Hgb Hct MCV MCH MCHC RDW Plt Count MPV Immature Gran % Neutrophils % Lymphocytes % Monocytes % Eosinophils % Basophils % Absolute Neutrophils Absolute Lymphocytes Absolute Monocytes Absolute Eosinophils Absolute Basophils Sodium 139 Potassium 4.4 Chloride 107 Carbon Dioxide 18.7 L Anion Gap 13.3 H BUN 56 H Creatinine 6.07 H* Estimated GFR/1.73 m2 9.45 Glucose 94 Calcium 8.3 L Magnesium 1.7 L Urine Color Red Urine Clarity Cloudy Urine pH 7.5 Ur Specific [place] 1.020 Urine Protein >=300 H Urine Ketones Negative Urine Blood Large H Urine Nitrite Negative Urine Bilirubin Negative Urine Urobilinogen 0.2 Ur Leukocyte Esterase Small H Urine RBC >50 H Urine WBC >50 Ur Culture Indicated? Yes Urine Glucose Negative Patient ABO/Rh O Positive Antibody Screen Negative Crossmatch See Detail 02/24/18 06:50 WBC 9.28 RBC 2.38 L Hgb 6.9 L* Hct 21.6 L MCV 90.8 MCH 29.0 MCHC 31.9 L RDW 15.2 H Plt Count 570 H MPV 9.3 Immature Gran % 0.9 Neutrophils % 69.7 Lymphocytes % 11.4 Monocytes % 15.5 Eosinophils % 2.0 Basophils % 0.5 Absolute Neutrophils 6.46 Absolute Lymphocytes 1.06 L Absolute Monocytes 1.44 H Absolute Eosinophils 0.19 Absolute Basophils 0.05 Sodium Potassium Chloride Carbon Dioxide Anion Gap BUN Creatinine Estimated GFR/1.73 m2 Glucose Calcium Magnesium Urine Color Urine Clarity Urine pH Ur Specific [place] Urine Protein Urine Ketones Urine Blood Urine Nitrite Urine Bilirubin Urine Urobilinogen Ur Leukocyte Esterase Urine RBC Urine WBC Ur Culture Indicated? Urine Glucose Patient ABO/Rh Antibody Screen Crossmatch Assessment and Plan (1) Bladder cancer: Current visit: Yes Status: Acute I am afraid that I have very little to offer this gentleman here at our facility. His hematuria is certainly due to his known bladder cancer. He is not a surgical candidate at our facility and he is already under the care of the urology service at [facility]. Plans for a palliative cystectomy are in the works. He was supposed to see medical oncology this week, but that appointment was canceled when he was admitted. I offered the patient a Giron catheter. I would not expect the catheter to stop his bleeding and the patient adamantly refuses to have a catheter placed. In terms of his nephrostomy tubes, we do not have facilities or interventional radiology to change or replace his nephrostomy tubes. The only thing we can do at our facility is to irrigate the tubes appear
[2018-02-24] MEDS: Magnesium Chloride 64 MG TABCR PO (11:29)
[2018-02-24] MEDS: LEVOFLOXACIN 500 MG/100 ML BAG 100 MG IVPB (11:29)
[2018-02-24] MEDS: diphenhydrAMINE 25 MG CAP PO (11:29)
--- NOTE | 2018-02-24 13:29 | NUR.NOTE ---
Nursing Note: PT TO RECEIVE 2 UNITS OF PRBC'S PER ORDERS. PT PREMEDICATED ORDERED. #18g TO RFA, FLUSHES WELL, REDRESSED. CONSENT SIGNED. VSS, AFEB PRIOR TO INFUSION. WILL MONITOR CLOSELY PT BECAME FEBRILE AND HAD SLIGHT ELEVATION IN BP LAST NIGHT DURING TRANSFUSION.
[2018-02-24] MEDS: Mylanta Suspension 30 ML CUP PO (14:24)
--- NOTE | 2018-02-24 14:49 | PDOC.CMPRO ---
- If Service Date Differs Date of service: 02/24/18 Time of Service: 14:49 Care Management Progress Note S/O: Cornelio is lying in bed this morning, he is open to discussion. Cornelio continues on IV antibiotics at this time, and has had a urology consult today with Dr. Sharma. No change in DC plan at this time. A: 62 y/o male admitted 02/23/18 for dehydration P: Cornelio will discharge when medically ready per MD. Anticipate patient will discharge with no services and follow up with his PCP. CM will continue to offer support to patient and care team regarding discharge planning and disposition.
--- NOTE | 2018-02-24 18:27 | PGE_ITS ---
Assessment and Plan (1) Symptomatic anemia: Current visit: Yes Status: Acute Now s/p transfusion of a total of 4 units of pRBC's. (2) Hematuria: Current visit: Yes Status: Acute Due to known bladder mass. Patient refuses catheterization. May require palliative radiation prior to resection. Will reattempt transfer to [facility] tomorrow. (3) Bladder cancer: Current visit: Yes Status: Acute Metastatic to lung; As above. Patient would still like aggressive care and is full code. [place] [facility] [place], would benefit from [place] [facility] [place] than his scheduled procedure. (4) Dehydration: Current visit: Yes Status: Acute Continue IV hydration (5) Chronic kidney disease, stage 5: Current visit: Yes Status: Acute Cr better after flushing nephrostomy tubes. Continue monitoring. (6) Hyperkalemia: Current visit: Yes Status: Acute Resolved. Monitor. (7) Enteritis: Current visit: Yes Status: Acute Likely uremic enteritis. Ultimately, the patient will require HD, but as there is urinary output now, it is not required emergently. PPI. (8) UTI (urinary tract infection): Current visit: Yes Status: Acute Due to Proteus, present on admission. Change antibiotics to levaquin and continue to monitor Subjective Interval history since last seen: The patient feels better today. He denies dizziness, chest pain, shortness of breath, nausea, vomiting. Both of his nephrostomies are draining now. He continues to have hematuria. Exam Narrative Exam Narrative: General: Cachectic, ill appearing male, pale, sitting in a chair Psych: in a better mood Neuro: A&Ox3, CN II-XII intact, no focal deficits Skin: improved turgor; pale HEENT: Atraumatic, normocephalic, Dry MM, EOMI, no submandibular or cervical lymphadenopathy, no goiter or JVD Heart: RRR, no m/r/g Lungs: CTAB Abdomen: soft, nontender, nondistended B nephrostomy tubes in place; R with clear-yellow output; L with cloudy output Extremities: 1+ pedal pulses B; no clubbing or cyanosis. Trace edema in B feet Objective Objective Clinical Data: Abnormal lab results 10/09/18 10/09/18 10/11/18 Range/Units 14:20 15:37 06:50 RBC (4.50-6.00) m/cumm Hgb (13.5-17.5) g/dL Hct (40.0-50.0) % MCHC (32.0-36.0) g/dL RDW (11.8-14.1) % Plt Count (130-400) x1000/uL Absolute Lymphocytes (1.2-3.4) k/cumm Absolute Monocytes (0.11-0.7) k/cumm Carbon Dioxide 18.7 L (21.0-32.0) mmol/L Anion Gap 13.3 H (3-11) mmol/L BUN 56 H (7-18) mg/dL Creatinine 6.07 H* (0.70-1.30) mg/dL Calcium 8.3 L (8.5-10.1) mg/dL Magnesium 1.7 L (1.8-2.4) mg/dL Urine Protein >=300 H (Negative) mg/dL Urine Blood Large H (Negative) Ur Leukocyte Esterase Small H (Negative) Urine RBC >50 H (0-2) Crossmatch See Detail 02/24/18 Range/Units 06:50 RBC 2.38 L (4.50-6.00) m/cumm Hgb 6.9 L* (13.5-17.5) g/dL Hct 21.6 L (40.0-50.0) % MCHC 31.9 L (32.0-36.0) g/dL RDW 15.2 H (11.8-14.1) % Plt Count 570 H (130-400) x1000/uL Absolute Lymphocytes 1.06 L (1.2-3.4) k/cumm Absolute Monocytes 1.44 H (0.11-0.7) k/cumm Carbon Dioxide (21.0-32.0) mmol/L Anion Gap (3-11) mmol/L BUN (7-18) mg/dL Creatinine (0.70-1.30) mg/dL Calcium (8.5-10.1) mg/dL Magnesium (1.8-2.4) mg/dL Urine Protein (Negative) mg/dL Urine Blood (Negative) Ur Leukocyte Esterase (Negative) Urine RBC (0-2) Crossmatch Vital Signs Temperature 36.7 C 02/24/18 17:51 Temperature Source Tympanic 02/24/18 14:30 Pulse 84 02/24/18 18:22 Pulse Rhythm Regular 02/24/18 08:37 Pulse 93 H 02/23/18 17:30 Respiratory Rate 20 02/24/18 17:51 Respiratory Effort Non-Labored 02/24/18 08:37 Respiratory Depth Normal 02/24/18 08:37 Respiratory Pattern Normal 02/24/18 08:37 Blood Pressure 156/95 H 02/24/18 17:51 Blood Pressure Mean 91 02/23/18 17:21 Blood Pressure Position Supine 02/22/18 23:00 Pulse Oximetry 97 02/24/18 17:51 Oxygen Delivery Method Room Air 02/24/18 17:51 Oxygen Flow Rate 0 02/24/18 17:51 Pain Level 0 02/24/18 14:30 Comment 02/24/18 11:15 Intake & Output 02/23/18 02/24/18 02/24/18 23:59 11:59 23:59 Intake Total 1300 / 1300 1480 / 1480 533 / 533 Output Total 700 / 700 1275 / 1275 550 / 550 Balance 600 / 600 205 / 205 -17 / -17 Weight 55 kg Intake: IV 1050 / 1050 1000 / 1000 Oral 250 / 250 480 / 480 240 / 240 Blood Product 293 / 293 Rbc Leuko Reduced Unit 293 / 293 [id number] Output: Urine 500 / 500 775 / 775 550 / 550 Stool 200 / 200 500 / 500 Other: Urine Color Bright Red Yellow Dark Red Urine Appearance Hematuria Cloudy Cloudy Hematuria Urine Odor Normal Normal Comment 200mls rt urostomy bag pt states urine has been bloody 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 150 Left Stool Size Moderate Small Stool Characteristics Liquid Soft Brown Bloody Voiding Methods Urinal Ileal Conduit (Right) Urinal Laboratory Results WBC 9.28 k/cumm (4.4-10.8) 02/24/18 06:50 RBC 2.38 m/cumm (4.50-6.00) L 02/24/18 06:50 Hgb 6.9 g/dL (13.5-17.5) L* 02/24/18 06:50 Hct 21.6 % (40.0-50.0) L 02/24/18 06:50 MCV 90.8 fL (80-95) 02/24/18 06:50 MCH 29.0 pg (27.0-33.0) 02/24/18 06:50 MCHC 31.9 g/dL (32.0-36.0) L 02/24/18 06:50 RDW 15.2 % (11.8-14.1) H 02/24/18 06:50 Plt Count 570 x1000/uL (130-400) H 02/24/18 06:50 MPV 9.3 fL (8.0-11.0) 02/24/18 06:50 Immature Gran % 0.9 02/24/18 06:50 Neutrophils % 69.7 02/24/18 06:50 Lymphocytes % 11.4 02/24/18 06:50 Monocytes % 15.5 02/24/18 06:50 Eosinophils % 2.0 02/24/18 06:50 Basophils % 0.5 02/24/18 06:50 Absolute Neutrophils 6.46 k/cumm (1.2-6.7) 02/24/18 06:50 Absolute Lymphocytes 1.06 k/cumm (1.2-3.4) L 02/24/18 06:50 Absolute Monocytes 1.44 k/cumm (0.11-0.7) H 02/24/18 06:50 Absolute Eosinophils 0.19 k/cumm (0.0-0.7) 02/24/18 06:50 Absolute Basophils 0.05 k/cumm (0.0-0.2) 02/24/18 06:50 Differential Comment Diff reviewed 02/22/18 12:35 RBC Morphology See below 02/22/18 12:35 Polychromasia Present 02/22/18 12:35 Hypochromasia 1+ 02/22/18 12:35 Poikilocytosis 2+ 02/22/18 12:35 Anisocytosis 1+ 02/22/18 12:35 Sodium 139 mmol/L (136-145) 02/24/18 06:50 Potassium 4.4 mmol/L (3.5-5.1) 02/24/18 06:50 Chloride 107 mmol/L (98-107) 02/24/18 06:50 Carbon Dioxide 18.7 mmol/L (21.0-32.0) L 02/24/18 06:50 Anion Gap 13.3 mmol/L (3-11) H 02/24/18 06:50 BUN 56 mg/dL (7-18) H 02/24/18 06:50 Creatinine 6.07 mg/dL (0.70-1.30) H* 02/24/18 06:50 Estimated GFR/1.73 m2 9.45 (mL/min/1.73m2) 02/24/18 06:50 Glucose 94 mg/dL (70-100) 02/24/18 06:50 Lactate 0.7 mmol/L (0.6-1.4) 02/23/18 06:40 Calcium 8.3 mg/dL (8.5-10.1) L 02/24/18 06:50 Magnesium 1.7 mg/dL (1.8-2.4) L 02/24/18 06:50 Total Bilirubin 0.3 mg/dL (0.2-1.0) 02/22/18 12:35 AST 11 U/L (15-37) L 02/22/18 12:35 ALT 11 U/L (12-78) L 02/22/18 12:35 Alkaline Phosphatase 115 U/L (46-116) 02/22/18 12:35 Troponin I < 0.02 ng/mL (0.00-0.06) 02/22/18 12:35 Total Protein 7.4 g/dL (6.4-8.2) 02/22/18 12:35 Albumin 2.3 g/dL (3.4-5.0) L 02/22/18 12:35 Lipase 71 U/L (73-393) L 02/22/18 12:35 Urine Color Red (Yellow) 02/22/18 15:37 Urine Clarity Cloudy 02/22/18 15:37 Urine pH 7.5 (5-8) 02/22/18 15:37 Ur Specific [place] 1.020 (1.005-1.025) 02/22/18 15:37 Urine Protein >=300 mg/dL (Negative) H 02/22/18 15:37 Urine Ketones Negative mg/dL (Negative) 02/22/18 15:37 Urine Blood Large (Negative) H 02/22/18 15:37 Urine Nitrite Negative (Negative) 02/22/18 15:37 Urine Bilirubin Negative (Negative) 02/22/18 15:37 Urine Urobilinogen 0.2 EU/dL (Up TO 0.2) 02/22/18 15:37 Ur Leukocyte Esterase Small (Negative) H 02/22/18 15:37 Urine RBC >50 (0-2) H 02/22/18 15:37 Urine WBC >50 HPF (0-5) 02/22/18 15:37 Ur Epithelial Cells Not Applicable 02/22/18 15:37 Urine Crystals Not Applicable 02/22/18 15:37 Urine Bacteria Not Applicable 02/22/18 15:37 Urine Mucus Not Applicable 02/22/18 15:37 Ur Culture Indicated? Yes 02/22/18 15:37 Urine Glucose Negative mg/dL (Negative) 02/22/18 15:37 Patient ABO/Rh O Positive 02/22/18 14:20 Antibody Screen Negative 02/22/18 14:20 Crossmatch See Detail 02/22/18 14:20 Reaction Clerical Check No clerical errors 02/23/18 06:40 Pre-Trans Blood Type O Positive 02/23/18 06:40 Pre-Trans Bld Appearanc No hemolysis/icterus 02/23/18 06:40 Pre-Trans BRITNEY Not Applicable 02/23/18 06:40 Post-Trans Blood Type O Positive 02/23/18 06:40 Post-Trans Spec Appear No hemolysis/icterus 02/23/18 06:40 Post-Trans BRITNEY Negative 02/23/18 06:40 Reaction Pathol Review Negative-complete 02/23/18 06:40
[2018-02-25] VITALS (10 sets, daily range): BP systolic 134–164; BP diastolic 86–94; PULSE 85–120; RESP 16–18; TEMP 36.8–37.5; O2SAT 94–98
[2018-02-25] MEDS: Normal Saline 1,000 ML 100 ML IV ×3 (01:45→21:41)
[2018-02-25] MEDS: Mylanta Suspension 30 ML CUP PO ×2 (01:45→14:40)
[2018-02-25] MEDS: oxyCODONE 5 MG TAB PO ×2 (02:17→09:19)
[2018-02-25 07:25] LABS: Abs Immature Grans 0.05 k/cumm (0.0-0.09); Absolute Basophil Count 0.06 k/cumm (0.0-0.2); Absolute Eosinophil Count 0.18 k/cumm (0.0-0.7); Absolute Lymphocyte Count 1.74 k/cumm (1.2-3.4); Basophils % 0.6; Eosinophils % 1.7; HCT 27.2 % (40.0-50.0); HGB 8.8 g/dL (13.5-17.5); Immature Grans % 0.5; Lymphocytes % 16.4; Mean Corp. HGB Concentration 32.4 g/dL (32.0-36.0); Mean Corpuscular Hemoglobin 28.7 pg (27.0-33.0); Mean Corpuscular Volume 88.6 fL (80-95); Mean Platelet Volume 9.1 fL (8.0-11.0); Monocytes % 16.9; Neutrophils % 63.9; Platelet Count 533 x1000/uL (130-400); RBC 3.07 m/cumm (4.50-6.00); RBC Distribution Width 17.1 % (11.8-14.1); White Blood Cell Count 10.63 k/cumm (4.4-10.8)
[2018-02-25 07:36] LABS: Anion Gap 12.5 mmol/L (3-11); BUN 48 mg/dL (7-18); CO2 18.5 mmol/L (21.0-32.0); Calcium 8.3 mg/dL (8.5-10.1); Chloride 110 mmol/L (98-107); Estimated GFR 10.77 (mL/min/1.73m2); Glucose 80 mg/dL (70-100); Magnesium 1.9 mg/dL (1.8-2.4); Potassium 4.4 mmol/L (3.5-5.1); Sodium 141 mmol/L (136-145)
[2018-02-25] MEDS: Omeprazole 20 MG CAPCR PO (09:19)
[2018-02-25] MEDS: Nicotine 14 MG/24 HR PATCH TD (09:19)
[2018-02-25] MEDS: Carvedilol 3.125 MG TAB PO ×2 (09:20→21:06)
--- NOTE | 2018-02-25 12:08 | PDOC.CMPRO ---
- If Service Date Differs Date of service: 02/25/18 Time of Service: 12:08 Care Management Progress Note S/O: Cornelio is lying in bed this morning when CM visits. He is engaged in conversation, makes good eye contact, and is talkative. Cornelio reports that he is having some back pain and has heartburn. Cornelio has been started on an oral PPI with no relief as of yet. He continues to receive IV fluids and antibiotics. Discussion continues about whether Cornelio will be strong enough for his scheduled surgery at [facility] [place] [place] at the end of the month. Question of transfer to [facility] [place] [place] prior or to home. CM will continue to follow. A: 62 y/o male admitted 02/23/18 for dehydration P: Cornelio will discharge when medically ready per MD. Anticipate patient will discharge with no services and follow up with his PCP. CM will continue to offer support to patient and care team regarding discharge planning and disposition.
--- NOTE | 2018-02-25 12:15 | CMPROGNOTE_ITS ---
- If Service Date Differs Date of service: 02/25/18 Time of Service: 12:08 Care Management Progress Note S/O: Cornelio is lying in bed this morning when CM visits. He is engaged in conversation, makes good eye contact, and is talkative. Cornelio reports that he is having some back pain and has heartburn. Cornelio has been started on an oral PPI with no relief as of yet. He continues to receive IV fluids and antibiotics. Discussion continues about whether Cornelio will be strong enough for his scheduled [place] [facility] [place] of the [place]. Question of transfer [place] [facility] [place] prior or to [place]. CM will continue to follow. A: 62 y/o male admitted 02/23/18 for dehydration P: Cornelio will discharge when medically ready per MD. Anticipate patient will discharge with no services and follow up with his PCP. CM will continue to offer support to patient and care team regarding discharge planning and disposition.
[2018-02-25] MEDS: Ondansetron 4 MG/2 ML VIAL IVP (13:57)
[2018-02-25] MEDS: Normal Saline Flush 10 ML SYR IVP (13:58)
[2018-02-25 14:15] LABS: CREATININE 5.42 mg/dL (0.70-1.30)
[2018-02-25] MEDS: Pantoprazole 40 MG VIAL IVP (17:00)
[2018-02-25] MEDS: oxyCODONE 5 MG TAB 10 MG PO (17:01)
--- NOTE | 2018-02-25 17:59 | W.PM.PROGNOT ---
Assessment and Plan (1) Symptomatic anemia: Current visit: Yes Status: Acute Now s/p transfusion of a total of 4 units of pRBC's. Due to persistent hematuria. Case discussed today with [facility] [place] - Dr Espitia. It is felt that this amount of bleeding does not necessitate an emergent intervention. (2) Hematuria: Current visit: Yes Status: Acute Due to known bladder mass. Patient refuses catheterization. Discussed with Dr Espitia - who agrees that palliative radiation would be indicated in this case prior to surgery. We will keep [facility] updated on patient's condition through the weekend - the ideal plan is for him to be transferred to [facility] [place] on Wednesday night for evaluation for radiation on Wednesday. (3) Bladder cancer: Current visit: Yes Status: Acute Metastatic to lung. Patient would still like aggressive care and is full code. Scheduled for palliative cystectomy at [facility] [place] - however, would benefit from transfer to [facility] [place] sooner than his scheduled procedure. Read discussion re transfer above. (4) Dehydration: Current visit: Yes Status: Acute Continue IV hydration (5) Chronic kidney disease, stage 5: Current visit: Yes Status: Acute Cr continues to improve after flushing nephrostomy tubes. Continue monitoring. (6) Hyperkalemia: Current visit: Yes Status: Acute Resolved with flushing of the nephrostomy tubes. Monitor. (7) Enteritis: Current visit: Yes Status: Acute and gastritis, likely uremic. Hemoccult negative. PPI switched to IV. (8) UTI (urinary tract infection): Current visit: Yes Status: Acute Due to Proteus, present on admission. Likely due to nephrostomy tubes being occluded. Continue levaquin - improving. Subjective Interval history since last seen: Complains of back pain from the nephrostomy tubes. Denies dizziness, chest pain or shortness of breath. Complains of burning/heartburn and nausea. He vomited after dinner. Complains of diarrhea. Continues to have good output from R nephrostomy; less so in the L. Continues to have diarrhea. Hemoccult negative today. Exam Narrative Exam Narrative: General: Cachectic, ill appearing male, pale, Laying in bed HEENT: Atraumatic, normocephalic, Dry MM, EOMI, no submandibular or cervical lymphadenopathy, no goiter or JVD Heart: RRR, no m/r/g Lungs: CTAB Abdomen: soft, nontender, nondistended B nephrostomy tubes in place; R with clear-yellow output; L with cloudy output Extremities: 1+ pedal pulses B; no clubbing or cyanosis. Trace edema in B feet Objective Objective Clinical Data: Abnormal lab results 02/22/18 02/25/18 02/25/18 Range/Units 14:20 06:30 06:30 RBC 3.07 L (4.50-6.00) m/cumm Hgb 8.8 L (13.5-17.5) g/dL Hct 27.2 L D (40.0-50.0) % RDW 17.1 H (11.8-14.1) % Plt Count 533 H (130-400) x1000/uL Absolute Neutrophils 6.80 H (1.2-6.7) k/cumm Absolute Monocytes 1.80 H (0.11-0.7) k/cumm Chloride 110 H (98-107) mmol/L Carbon Dioxide 18.5 L (21.0-32.0) mmol/L Anion Gap 12.5 H (3-11) mmol/L BUN 48 H (7-18) mg/dL Creatinine 5.42 H* (0.70-1.30) mg/dL Calcium 8.3 L (8.5-10.1) mg/dL Crossmatch See Detail Vital Signs Temperature 37.5 C 02/25/18 16:09 Temperature Source Tympanic 02/25/18 16:09 Pulse 85 02/25/18 16:09 Pulse Rhythm Regular 02/25/18 17:18 Pulse 93 H 02/23/18 17:30 Respiratory Rate 18 02/25/18 16:09 Respiratory Effort 02/25/18 17:18 Respiratory Depth Normal 02/25/18 17:18 Respiratory Pattern Normal 02/25/18 17:18 Blood Pressure 147/86 H 02/25/18 16:09 Blood Pressure Mean 91 02/23/18 17:21 Blood Pressure Position Supine 02/22/18 23:00 Pulse Oximetry 97 02/25/18 16:09 Oxygen Delivery Method Room Air 02/25/18 16:09 Oxygen Flow Rate 0 02/25/18 16:09 Pain Level 4 02/25/18 17:01 Comment 02/24/18 11:15 Intake & Output 02/24/18 02/25/18 02/25/18 23:59 11:59 23:59 Intake Total 2718 / 2718 1975.667 / 1975.667 Output Total 1000 / 1000 125 / 125 680 / 680 Balance 1719 / 1719 1851.667 / 1851.667 -680 / -680 Intake: IV 1885 / 1885 986.667 / 986.667 Oral 240 / 240 990 / 990 Blood Product 594 / 594 Rbc Leuko Reduced Unit 293 / 293 [id number] Rbc Leuko Reduced Unit 301 / 301 [id number] Output: Urine 1000 / 1000 125 / 125 680 / 680 Other: Urine Color Dark Red Pale Dark Red Yellow Urine Appearance Clear Clear Hematuria Purulent Hematuria Urine Odor Normal Strong Strong Comment 150 Left Right side 250 650 from right neph cath. Left side 60 Stool Size Small Moderate Stool Characteristics Soft Soft Liquid Voiding Methods Urinal Urinal Urinal Laboratory Results WBC 10.63 k/cumm (4.4-10.8) 02/25/18 06:30 RBC 3.07 m/cumm (4.50-6.00) L 02/25/18 06:30 Hgb 8.8 g/dL (13.5-17.5) L 02/25/18 06:30 Hct 27.2 % (40.0-50.0) L D 02/25/18 06:30 MCV 88.6 fL (80-95) 02/25/18 06:30 MCH 28.7 pg (27.0-33.0) 02/25/18 06:30 MCHC 32.4 g/dL (32.0-36.0) 02/25/18 06:30 RDW 17.1 % (11.8-14.1) H 02/25/18 06:30 Plt Count 533 x1000/uL (130-400) H 02/25/18 06:30 MPV 9.1 fL (8.0-11.0) 02/25/18 06:30 Immature Gran % 0.5 02/25/18 06:30 Neutrophils % 63.9 02/25/18 06:30 Lymphocytes % 16.4 02/25/18 06:30 Monocytes % 16.9 02/25/18 06:30 Eosinophils % 1.7 02/25/18 06:30 Basophils % 0.6 02/25/18 06:30 Absolute Neutrophils 6.80 k/cumm (1.2-6.7) H 02/25/18 06:30 Absolute Lymphocytes 1.74 k/cumm (1.2-3.4) 02/25/18 06:30 Absolute Monocytes 1.80 k/cumm (0.11-0.7) H 02/25/18 06:30 Absolute Eosinophils 0.18 k/cumm (0.0-0.7) 02/25/18 06:30 Absolute Basophils 0.06 k/cumm (0.0-0.2) 02/25/18 06:30 Differential Comment Diff reviewed 02/22/18 12:35 RBC Morphology See below 02/22/18 12:35 Polychromasia Present 02/22/18 12:35 Hypochromasia 1+ 02/22/18 12:35 Poikilocytosis 2+ 02/22/18 12:35 Anisocytosis 1+ 02/22/18 12:35 Sodium 141 mmol/L (136-145) 02/25/18 06:30 Potassium 4.4 mmol/L (3.5-5.1) 02/25/18 06:30 Chloride 110 mmol/L (98-107) H 02/25/18 06:30 Carbon Dioxide 18.5 mmol/L (21.0-32.0) L 02/25/18 06:30 Anion Gap 12.5 mmol/L (3-11) H 02/25/18 06:30 BUN 48 mg/dL (7-18) H 02/25/18 06:30 Creatinine 5.42 mg/dL (0.70-1.30) H* 02/25/18 06:30 Estimated GFR/1.73 m2 10.77 (mL/min/1.73m2) 02/25/18 06:30 Glucose 80 mg/dL (70-100) 02/25/18 06:30 Lactate 0.7 mmol/L (0.6-1.4) 02/23/18 06:40 Calcium 8.3 mg/dL (8.5-10.1) L 02/25/18 06:30 Magnesium 1.9 mg/dL (1.8-2.4) 02/25/18 06:30 Total Bilirubin 0.3 mg/dL (0.2-1.0) 02/22/18 12:35 AST 11 U/L (15-37) L 02/22/18 12:35 ALT 11 U/L (12-78) L 02/22/18 12:35 Alkaline Phosphatase 115 U/L (46-116) 02/22/18 12:35 Troponin I < 0.02 ng/mL (0.00-0.06) 02/22/18 12:35 Total Protein 7.4 g/dL (6.4-8.2) 02/22/18 12:35 Albumin 2.3 g/dL (3.4-5.0) L 02/22/18 12:35 Lipase 71 U/L (73-393) L 02/22/18 12:35 Urine Color Red (Yellow) 02/22/18 15:37 Urine Clarity Cloudy 02/22/18 15:37 Urine pH 7.5 (5-8) 02/22/18 15:37 Ur Specific [place] 1.020 (1.005-1.025) 02/22/18 15:37 Urine Protein >=300 mg/dL (Negative) H 02/22/18 15:37 Urine Ketones Negative mg/dL (Negative) 02/22/18 15:37 Urine Blood Large (Negative) H 02/22/18 15:37 Urine Nitrite Negative (Negative) 02/22/18 15:37 Urine Bilirubin Negative (Negative) 02/22/18 15:37 Urine Urobilinogen 0.2 EU/dL (Up TO 0.2) 02/22/18 15:37 Ur Leukocyte Esterase Small (Negative) H 02/22/18 15:37 Urine RBC >50 (0-2) H 02/22/18 15:37 Urine WBC >50 HPF (0-5) 02/22/18 15:37 Ur Epithelial Cells Not Applicable 02/22/18 15:37 Urine Crystals Not Applicable 02/22/18 15:37 Urine Bacteria Not Applicable 02/22/18 15:37 Urine Mucus Not Applicable 02/22/18 15:37 Ur Culture Indicated? Yes 02/22/18 15:37 Urine Glucose Negative mg/dL (Negative) 02/22/18 15:37 Patient ABO/Rh O Positive 02/22/18 14:20 Antibody Screen Negative 02/22/18 14:20 Crossmatch See Detail 02/22/18 14:20 Reaction Clerical Check No clerical errors 02/23/18 06:40 Pre-Trans Blood Type O Positive 02/23/18 06:40 Pre-Trans Bld Appearanc No hemolysis/icterus 02/23/18 06:40 Pre-Trans BRITNEY Not Applicable 02/23/18 06:40 Post-Trans Blood Type O Positive 02/23/18 06:40 Post-Trans Spec Appear No hemolysis/icterus 02/23/18 06:40 Post-Trans BRITNEY Negative 02/23/18 06:40 Reaction Pathol Review Negative-complete 02/23/18 06:40
--- NOTE | 2018-02-25 18:02 | PGE_ITS ---
Assessment and Plan (1) Symptomatic anemia: Current visit: Yes Status: Acute Now s/p transfusion of a total of 4 units of pRBC's. Due to persistent hematuria. Case discussed today with [facility] urology - Dr Espitia. It is felt that this amount of bleeding does not necessitate an emergent intervention. (2) Hematuria: Current visit: Yes Status: Acute Due to known bladder mass. Patient refuses catheterization. Discussed with Dr Espitia - who agrees that palliative radiation would be indicated in this case prior to surgery. We will keep [facility] updated on patient's condition through the weekend - the ideal plan is for him to be transferred to [facility] on Wednesday night for evaluation for radiation on Wednesday. (3) Bladder cancer: Current visit: Yes Status: Acute Metastatic to lung. Patient would still like aggressive care and is full code. Scheduled for palliative cystectomy at [facility] - however, would benefit from transfer to [facility] sooner than his scheduled procedure. Read discussion re transfer above. (4) Dehydration: Current visit: Yes Status: Acute Continue IV hydration (5) Chronic kidney disease, stage 5: Current visit: Yes Status: Acute Cr continues to improve after flushing nephrostomy tubes. Continue monitoring. (6) Hyperkalemia: Current visit: Yes Status: Acute Resolved with flushing of the nephrostomy tubes. Monitor. (7) Enteritis: Current visit: Yes Status: Acute and gastritis, likely uremic. Hemoccult negative. PPI switched to IV. (8) UTI (urinary tract infection): Current visit: Yes Status: Acute Due to Proteus, present on admission. Likely due to nephrostomy tubes being occluded. Continue levaquin - improving. Subjective Interval history since last seen: Complains of back pain from the nephrostomy tubes. Denies dizziness, chest pain or shortness of breath. Complains of burning /heartburn and nausea. He vomited after dinner. Complains of diarrhea. Continues to have good output from R nephrostomy; less so in the L. Continues to have diarrhea. Hemoccult negative today. Exam Narrative Exam Narrative: General: Cachectic, ill appearing male, pale, Laying in bed HEENT: Atraumatic, normocephalic, Dry MM, EOMI, no submandibular or cervical lymphadenopathy, no goiter or JVD Heart: RRR, no m/r/g Lungs: CTAB Abdomen: soft, nontender, nondistended B nephrostomy tubes in place; R with clear-yellow output; L with cloudy output Extremities: 1+ pedal pulses B; no clubbing or cyanosis. Trace edema in B feet Objective Objective Clinical Data: Abnormal lab results 02/22/18 02/25/18 02/25/18 Range/Units 14:20 06:30 06:30 RBC 3.07 L (4.50-6.00) m/cumm Hgb 8.8 L (13.5-17.5) g/dL Hct 27.2 L D (40.0-50.0) % RDW 17.1 H (11.8-14.1) % Plt Count 533 H (130-400) x1000/uL Absolute Neutrophils 6.80 H (1.2-6.7) k/cumm Absolute Monocytes 1.80 H (0.11-0.7) k/cumm Chloride 110 H (98-107) mmol/L Carbon Dioxide 18.5 L (21.0-32.0) mmol/L Anion Gap 12.5 H (3-11) mmol/L BUN 48 H (7-18) mg/dL Creatinine 5.42 H* (0.70-1.30) mg/dL Calcium 8.3 L (8.5-10.1) mg/dL Crossmatch See Detail Vital Signs Temperature 37.5 C 02/25/18 16:09 Temperature Source Tympanic 02/25/18 16:09 Pulse 85 02/25/18 16:09 Pulse Rhythm Regular 02/25/18 17:18 Pulse 93 H 02/23/18 17:30 Respiratory Rate 18 02/25/18 16:09 Respiratory Effort 02/25/18 17:18 Respiratory Depth Normal 02/25/18 17:18 Respiratory Pattern Normal 02/25/18 17:18 Blood Pressure 147/86 H 02/25/18 16:09 Blood Pressure Mean 91 02/23/18 17:21 Blood Pressure Position Supine 02/22/18 23:00 Pulse Oximetry 97 02/25/18 16:09 Oxygen Delivery Method Room Air 02/25/18 16:09 Oxygen Flow Rate 0 02/25/18 16:09 Pain Level 4 02/25/18 17:01 Comment 02/24/18 11:15 Intake & Output 02/24/18 02/25/18 02/25/18 23:59 11:59 23:59 Intake Total 2718 / 2718 1975.667 / 1975.667 Output Total 1000 / 1000 125 / 125 680 / 680 Balance 1719 / 1719 1851.667 / 1851.667 -680 / -680 Intake: IV 1885 / 1885 986.667 / 986.667 Oral 240 / 240 990 / 990 Blood Product 594 / 594 Rbc Leuko Reduced Unit 293 / 293 [id number] Rbc Leuko Reduced Unit 301 / 301 [id number] Output: Urine 1000 / 1000 125 / 125 680 / 680 Other: Urine Color Dark Red Pale Dark Red Yellow Urine Appearance Clear Clear Hematuria Purulent Hematuria Urine Odor Normal Strong Strong Comment 150 Left Right side 250 650 from right neph cath. Left side 60 Stool Size Small Moderate Stool Characteristics Soft Soft Liquid Voiding Methods Urinal Urinal Urinal Laboratory Results WBC 10.63 k/cumm (4.4-10.8) 02/25/18 06:30 RBC 3.07 m/cumm (4.50-6.00) L 02/25/18 06:30 Hgb 8.8 g/dL (13.5-17.5) L 02/25/18 06:30 Hct 27.2 % (40.0-50.0) L D 02/25/18 06:30 MCV 88.6 fL (80-95) 02/25/18 06:30 MCH 28.7 pg (27.0-33.0) 02/25/18 06:30 MCHC 32.4 g/dL (32.0-36.0) 02/25/18 06:30 RDW 17.1 % (11.8-14.1) H 02/25/18 06:30 Plt Count 533 x1000/uL (130-400) H 02/25/18 06:30 MPV 9.1 fL (8.0-11.0) 02/25/18 06:30 Immature Gran % 0.5 02/25/18 06:30 Neutrophils % 63.9 02/25/18 06:30 Lymphocytes % 16.4 02/25/18 06:30 Monocytes % 16.9 02/25/18 06:30 Eosinophils % 1.7 02/25/18 06:30 Basophils % 0.6 02/25/18 06:30 Absolute Neutrophils 6.80 k/cumm (1.2-6.7) H 02/25/18 06:30 Absolute Lymphocytes 1.74 k/cumm (1.2-3.4) 02/25/18 06:30 Absolute Monocytes 1.80 k/cumm (0.11-0.7) H 02/25/18 06:30 Absolute Eosinophils 0.18 k/cumm (0.0-0.7) 02/25/18 06:30 Absolute Basophils 0.06 k/cumm (0.0-0.2) 02/25/18 06:30 Differential Comment Diff reviewed 02/22/18 12:35 RBC Morphology See below 02/22/18 12:35 Polychromasia Present 02/22/18 12:35 Hypochromasia 1+ 02/22/18 12:35 Poikilocytosis 2+ 02/22/18 12:35 Anisocytosis 1+ 02/22/18 12:35 Sodium 141 mmol/L (136-145) 02/25/18 06:30 Potassium 4.4 mmol/L (3.5-5.1) 02/25/18 06:30 Chloride 110 mmol/L (98-107) H 02/25/18 06:30 Carbon Dioxide 18.5 mmol/L (21.0-32.0) L 02/25/18 06:30 Anion Gap 12.5 mmol/L (3-11) H 02/25/18 06:30 BUN 48 mg/dL (7-18) H 02/25/18 06:30 Creatinine 5.42 mg/dL (0.70-1.30) H* 02/25/18 06:30 Estimated GFR/1.73 m2 10.77 (mL/min/1.73m2) 02/25/18 06:30 Glucose 80 mg/dL (70-100) 02/25/18 06:30 Lactate 0.7 mmol/L (0.6-1.4) 02/23/18 06:40 Calcium 8.3 mg/dL (8.5-10.1) L 02/25/18 06:30 Magnesium 1.9 mg/dL (1.8-2.4) 02/25/18 06:30 Total Bilirubin 0.3 mg/dL (0.2-1.0) 02/22/18 12:35 AST 11 U/L (15-37) L 02/22/18 12:35 ALT 11 U/L (12-78) L 02/22/18 12:35 Alkaline Phosphatase 115 U/L (46-116) 02/22/18 12:35 Troponin I < 0.02 ng/mL (0.00-0.06) 02/22/18 12:35 Total Protein 7.4 g/dL (6.4-8.2) 02/22/18 12:35 Albumin 2.3 g/dL (3.4-5.0) L 02/22/18 12:35 Lipase 71 U/L (73-393) L 02/22/18 12:35 Urine Color Red (Yellow) 02/22/18 15:37 Urine Clarity Cloudy 02/22/18 15:37 Urine pH 7.5 (5-8) 02/22/18 15:37 Ur Specific [place] 1.020 (1.005-1.025) 02/22/18 15:37 Urine Protein >=300 mg/dL (Negative) H 02/22/18 15:37 Urine Ketones Negative mg/dL (Negative) 02/22/18 15:37 Urine Blood Large (Negative) H 02/22/18 15:37 Urine Nitrite Negative (Negative) 02/22/18 15:37 Urine Bilirubin Negative (Negative) 02/22/18 15:37 Urine Urobilinogen 0.2 EU/dL (Up TO 0.2) 02/22/18 15:37 Ur Leukocyte Esterase Small (Negative) H 02/22/18 15:37 Urine RBC >50 (0-2) H 02/22/18 15:37 Urine WBC >50 HPF (0-5) 02/22/18 15:37 Ur Epithelial Cells Not Applicable 02/22/18 15:37 Urine Crystals Not Applicable 02/22/18 15:37 Urine Bacteria Not Applicable 02/22/18 15:37 Urine Mucus Not Applicable 02/22/18 15:37 Ur Culture Indicated? Yes 02/22/18 15:37 Urine Glucose Negative mg/dL (Negative) 02/22/18 15:37 Patient ABO/Rh O Positive 02/22/18 14:20 Antibody Screen Negative 02/22/18 14:20 Crossmatch See Detail 02/22/18 14:20 Reaction Clerical Check No clerical errors 02/23/18 06:40 Pre-Trans Blood Type O Positive 02/23/18 06:40 Pre-Trans Bld Appearanc No hemolysis/icterus 02/23/18 06:40 Pre-Trans BRITNEY Not Applicable 02/23/18 06:40 Post-Trans Blood Type O Positive 02/23/18 06:40 Post-Trans Spec Appear No hemolysis/icterus 02/23/18 06:40 Post-Trans BRITNEY Negative 02/23/18 06:40 Reaction Pathol Review Negative-complete 02/23/18 06:40
--- NOTE | 2018-02-25 18:54 | NUR.NOTE ---
pantoprazole has had a desired effect, patient is able to eat dinner, and keep it down, he is pleasant and relaxed at this time. Nursing Note:
[2018-02-25] MEDS: Atorvastatin 40 MG TAB 80 MG PO (21:06)
[2018-02-26] VITALS (10 sets, daily range): BP systolic 132–161; BP diastolic 78–96; PULSE 81–96; RESP 16–20; TEMP 36.6–37.5; O2SAT 97–99
[2018-02-26] MEDS: oxyCODONE 5 MG TAB 10 MG PO ×4 (00:29→23:14)
[2018-02-26 06:18] LABS: Anion Gap 9.9 mmol/L (3-11); BUN 43 mg/dL (7-18); CO2 20.1 mmol/L (21.0-32.0); Calcium 8.3 mg/dL (8.5-10.1); Chloride 112 mmol/L (98-107); Estimated GFR 12.18 (mL/min/1.73m2); Glucose 127 mg/dL (70-100); Magnesium 1.8 mg/dL (1.8-2.4); Potassium 4.2 mmol/L (3.5-5.1); Sodium 142 mmol/L (136-145)
[2018-02-26 06:25] LABS: HCT 26.1 % (40.0-50.0); HGB 8.3 g/dL (13.5-17.5); Mean Corp. HGB Concentration 31.8 g/dL (32.0-36.0); Mean Corpuscular Hemoglobin 28.4 pg (27.0-33.0); Mean Corpuscular Volume 89.4 fL (80-95); Mean Platelet Volume 9.1 fL (8.0-11.0); Platelet Count 523 x1000/uL (130-400); RBC 2.92 m/cumm (4.50-6.00); RBC Distribution Width 17.2 % (11.8-14.1); White Blood Cell Count 9.82 k/cumm (4.4-10.8)
[2018-02-26 06:27] LABS: CREATININE 4.87 mg/dL (0.70-1.30)
[2018-02-26] MEDS: Normal Saline 1,000 ML 100 ML IV ×2 (07:50→19:12)
[2018-02-26] MEDS: Carvedilol 3.125 MG TAB PO ×2 (07:50→19:11)
[2018-02-26] MEDS: Nicotine 14 MG/24 HR PATCH TD (07:51)
[2018-02-26] MEDS: Normal Saline Flush 10 ML SYR IVP (07:53)
[2018-02-26] MEDS: Pantoprazole 40 MG VIAL IVP (07:53)
[2018-02-26] MEDS: LEVOFLOXACIN 250 MG/50 ML BAG 50 MG IVPB (10:06)
[2018-02-26 14:04] LABS: Bilirubin Negative (Negative); Blood Large (Negative); Glucose Negative (Negative); Ketones Negative (Negative); Leukocyte Esterase Moderate (Negative); Nitrite Negative (Negative); Specific Gravity 1.025 (1.005-1.025); Urobilinogen 0.2 EU/dL (Up TO 0.2); pH 7.5 (5-8)
[2018-02-26 14:09] LABS: C & S Indicated? Yes; Clarity Turbid; HCT 26.7 % (40.0-50.0); HGB 8.5 g/dL (13.5-17.5)
--- NOTE | 2018-02-26 16:05 | PDOC.CMPRO ---
- If Service Date Differs Date of service: 02/26/18 Time of Service: 16:05 Care Management Progress Note S/O: CM met with Cornelio at the bedside he remains in good spirts. CM provided him with a deck of cards, he is hopeful he will be able to return home to his son soon. He states he had a much better night last night since they treated him for heart burn. CM discussed the possibility that he may transfer to [facility] if further intervention is needed r/t bladder cancer and nephrostomy tubes. A: 62 y/o male admitted 02/23/18 for dehydration P: Cornelio will discharge when medically ready per MD. Anticipate patient will discharge home with home health services, vs transfer to [facility] [place]. CM will continue to offer support to patient and care team regarding discharge planning and disposition.
--- NOTE | 2018-02-26 16:09 | CMPROGNOTE_ITS ---
- If Service Date Differs Date of service: 02/26/18 Time of Service: 16:05 Care Management Progress Note S/O: CM met with Cornelio at the bedside he remains in good spirts. CM provided him with a deck of cards, he is hopeful he will be able to return home to his son soon. He states he had a much better night last night since they treated him for heart burn. CM discussed the possibility that he may transfer to [facility] if further intervention is needed r/t bladder cancer and nephrostomy tubes. A: 62 y/o male admitted 02/23/18 for dehydration P: Cornelio will discharge when medically ready per MD. Anticipate patient will discharge home with home health services, vs transfer to [facility]. CM will continue to offer support to patient and care team regarding discharge planning and disposition.
--- NOTE | 2018-02-26 18:50 | W.PM.PROGNOT ---
Assessment and Plan (1) Symptomatic anemia: Current visit: Yes Status: Acute Now s/p transfusion of a total of 4 units of PRBC's. Heme negative stool noted. Anemia presumed secondary to persistent hematuria. Case discussed today with Dr. Espitia of [facility] urology again - He continues to recommend monitoring despite slow continued drop in hemoglobin this morning. Will monitor and continue serial H/H. (2) Hematuria: Current visit: Yes Status: Acute Due to known bladder mass. Patient refuses catheterization. Discussed with Dr Espitia - who agrees that palliative radiation would be indicated in this case prior to surgery. We will keep [facility] updated on patient's condition through the weekend - the ideal plan is for him to be transferred to [facility] on Wednesday night for evaluation for potential radiation on Wednesday. (3) Bladder cancer: Current visit: Yes Status: Chronic Metastatic to lung. Patient would still like aggressive care and is full code. Scheduled for palliative cystectomy at [facility] - however, would benefit from transfer to [facility] sooner than his scheduled procedure if continued or worsening bleeding as above. (4) Chronic kidney disease, stage 5: Current visit: Yes Status: Chronic Cr continues to improve after flushing nephrostomy tubes. Continue monitoring. (5) Hyperkalemia: Current visit: Yes Status: Acute Resolved with flushing of the nephrostomy tubes. Monitor. (6) Enteritis: Current visit: Yes Status: Acute CT at time of admission with bowel wall thickening and loops of jejunum within the LUQ suspicious for an enteritis. Hemoccult negative. PPI switched to IV. Continue to monitor symptoms. (7) UTI (urinary tract infection): Current visit: Yes Status: Acute Due to Proteus Hauseri, sensitive to both Levaquin and Ceftriaxone. Continue Fluoroquinolone therapy, renally dosed, currently day #3. (8) CHF (congestive heart failure): Current visit: Yes Status: Chronic LVEF 35-40% with diffuse hypokinesis and regional variations on ECHO from 12/2017. Currently appears euvolemic. Continue BB and statin therapy and monitor volume status closely. Check daily weights. (9) DVT prophylaxis: Current visit: Yes Status: Acute Hold on anticoagulation secondary to active hematuria with significant transfusion requiring anemia. Subjective Interval history since last seen: 62 year old man with PMHx significant for bladder cancer with obstructive uropathy, s/p bilateral nephrostomy tubes, CKD stage 5 (not on dialysis), chronic hematuria with subsequent anemia, Chronic systolic CHF wih EF 35% admitted from [facility] ED on 02/23/2018 with evidence of enteritis by CT, and anemia by labwork. Mr. Rosas initially reported continuous hematuria, and that his nephrostomy tubes have not had any output since 2 days prior to his admission. He also reported fevers/chills at home. Subsequent Urinalysis showed evidence of a UTI, with cultures showing growth of Proteus Hauseri, maintained on renally dosed Levofloxacin. The patient was also noted to be anemic with a Hgb of 6.4, and was transfused with PRBCs. He was also found to have evidence of enteritis on CT. The patient is planning to undergo bladder surgery at [facility] on March 15. Nursing reports continued appearance of pyuria by left nephrostomy tube. No other events reported overnight. Patient remains afebrile. Exam Narrative Exam Narrative: General: Cachectic and ill appearing but in NAD. Skin: Pallor noted. Neck: Supple. CV: Regular. No overt Rubs, Murmurs, or Gallops. Lungs: CTAB Abdomen: soft, nontender, nondistended : Bilateral nephrostomy tubes in place; R with clear-yellow output; L with cloudy output Extremities: Trace b/l LE Edema. Objective Objective Clinical Data: Abnormal lab results 02/26/18 02/26/18 02/26/18 Range/Units 05:53 05:53 13:50 RBC 2.92 L (4.50-6.00) m/cumm Hgb 8.3 L 8.5 L (13.5-17.5) g/dL Hct 26.1 L 26.7 L (40.0-50.0) % MCHC 31.8 L (32.0-36.0) g/dL RDW 17.2 H (11.8-14.1) % Plt Count 523 H (130-400) x1000/uL Chloride 112 H (98-107) mmol/L Carbon Dioxide 20.1 L (21.0-32.0) mmol/L BUN 43 H (7-18) mg/dL Creatinine 4.87 H* (0.70-1.30) mg/dL Glucose 127 H (70-100) mg/dL Calcium 8.3 L (8.5-10.1) mg/dL Urine Protein (Negative) mg/dL Urine Blood (Negative) Ur Leukocyte Esterase (Negative) 02/26/18 Range/Units 13:50 RBC (4.50-6.00) m/cumm Hgb (13.5-17.5) g/dL Hct (40.0-50.0) % MCHC (32.0-36.0) g/dL RDW (11.8-14.1) % Plt Count (130-400) x1000/uL Chloride (98-107) mmol/L Carbon Dioxide (21.0-32.0) mmol/L BUN (7-18) mg/dL Creatinine (0.70-1.30) mg/dL Glucose (70-100) mg/dL Calcium (8.5-10.1) mg/dL Urine Protein >=300 H (Negative) mg/dL Urine Blood Large H (Negative) Ur Leukocyte Esterase Moderate H (Negative) Vital Signs Temperature 37.2 C 02/26/18 16:09 Temperature Source Tympanic 02/26/18 16:09 Pulse 87 02/26/18 16:09 Pulse Rhythm Regular 02/26/18 15:16 Pulse 93 H 02/23/18 17:30 Respiratory Rate 19 02/26/18 16:09 Respiratory Effort Non-Labored 02/26/18 15:16 Respiratory Depth Normal 02/26/18 15:16 Respiratory Pattern Normal 02/26/18 15:16 Blood Pressure 161/91 H 02/26/18 16:09 Blood Pressure Mean 91 02/23/18 17:21 Blood Pressure Position Supine 02/22/18 23:00 Pulse Oximetry 97 02/26/18 16:09 Oxygen Delivery Method Room Air 02/26/18 16:09 Oxygen Flow Rate 0 02/26/18 16:09 Pain Level 2 02/26/18 11:03 Comment 02/26/18 03:45 Intake & Output 02/25/18 02/26/18 02/26/18 23:59 11:59 23:59 Intake Total 1000 / 1000 1650 / 1650 600 / 600 Output Total 1005 / 1005 1130 / 1130 Balance -5 / -5 520 / 520 600 / 600 Intake: IV 1000 / 1000 1000 / 1000 Oral 650 / 650 600 / 600 Output: Drainage 980 / 980 Left Posterior Back 105 / 105 Right Posterior Back 875 / 875 Urine 1005 / 1005 150 / 150 Other: Urine Color Yellow Dark Red Urine Appearance Clear Hematuria Urine Odor Normal Comment 650 from right neph cath. NOT URINE, AFFLUENT FROM BLADDER R/T CANCER. Voiding Methods Ileal Conduit (Right) Laboratory Results WBC 9.82 k/cumm (4.4-10.8) 02/26/18 05:53 RBC 2.92 m/cumm (4.50-6.00) L 02/26/18 05:53 Hgb 8.5 g/dL (13.5-17.5) L 02/26/18 13:50 Hct 26.7 % (40.0-50.0) L 02/26/18 13:50 MCV 89.4 fL (80-95) 02/26/18 05:53 MCH 28.4 pg (27.0-33.0) 02/26/18 05:53 MCHC 31.8 g/dL (32.0-36.0) L 02/26/18 05:53 RDW 17.2 % (11.8-14.1) H 02/26/18 05:53 Plt Count 523 x1000/uL (130-400) H 02/26/18 05:53 MPV 9.1 fL (8.0-11.0) 02/26/18 05:53 Immature Gran % 0.5 02/25/18 06:30 Neutrophils % 63.9 02/25/18 06:30 Lymphocytes % 16.4 02/25/18 06:30 Monocytes % 16.9 02/25/18 06:30 Eosinophils % 1.7 02/25/18 06:30 Basophils % 0.6 02/25/18 06:30 Absolute Neutrophils 6.80 k/cumm (1.2-6.7) H 02/25/18 06:30 Absolute Lymphocytes 1.74 k/cumm (1.2-3.4) 02/25/18 06:30 Absolute Monocytes 1.80 k/cumm (0.11-0.7) H 02/25/18 06:30 Absolute Eosinophils 0.18 k/cumm (0.0-0.7) 02/25/18 06:30 Absolute Basophils 0.06 k/cumm (0.0-0.2) 02/25/18 06:30 Differential Comment Diff reviewed 02/22/18 12:35 RBC Morphology See below 02/22/18 12:35 Polychromasia Present 02/22/18 12:35 Hypochromasia 1+ 02/22/18 12:35 Poikilocytosis 2+ 02/22/18 12:35 Anisocytosis 1+ 02/22/18 12:35 Sodium 142 mmol/L (136-145) 02/26/18 05:53 Potassium 4.2 mmol/L (3.5-5.1) 02/26/18 05:53 Chloride 112 mmol/L (98-107) H 02/26/18 05:53 Carbon Dioxide 20.1 mmol/L (21.0-32.0) L 02/26/18 05:53 Anion Gap 9.9 mmol/L (3-11) 02/26/18 05:53 BUN 43 mg/dL (7-18) H 02/26/18 05:53 Creatinine 4.87 mg/dL (0.70-1.30) H* 02/26/18 05:53 Estimated GFR/1.73 m2 12.18 (mL/min/1.73m2) 02/26/18 05:53 Glucose 127 mg/dL (70-100) H 02/26/18 05:53 Lactate 0.7 mmol/L (0.6-1.4) 02/23/18 06:40 Calcium 8.3 mg/dL (8.5-10.1) L 02/26/18 05:53 Magnesium 1.8 mg/dL (1.8-2.4) 02/26/18 05:53 Total Bilirubin 0.3 mg/dL (0.2-1.0) 02/22/18 12:35 AST 11 U/L (15-37) L 02/22/18 12:35 ALT 11 U/L (12-78) L 02/22/18 12:35 Alkaline Phosphatase 115 U/L (46-116) 02/22/18 12:35 Troponin I < 0.02 ng/mL (0.00-0.06) 02/22/18 12:35 Total Protein 7.4 g/dL (6.4-8.2) 02/22/18 12:35 Albumin 2.3 g/dL (3.4-5.0) L 02/22/18 12:35 Lipase 71 U/L (73-393) L 02/22/18 12:35 Urine Color Yellow (Yellow) 02/26/18 13:50 Urine Clarity Turbid 02/26/18 13:50 Urine pH 7.5 (5-8) 02/26/18 13:50 Ur Specific [place] 1.025 (1.005-1.025) 02/26/18 13:50 Urine Protein >=300 mg/dL (Negative) H 02/26/18 13:50 Urine Ketones Negative mg/dL (Negative) 02/26/18 13:50 Urine Blood Large (Negative) H 02/26/18 13:50 Urine Nitrite Negative (Negative) 02/26/18 13:50 Urine Bilirubin Negative (Negative) 02/26/18 13:50 Urine Urobilinogen 0.2 EU/dL (Up TO 0.2) 02/26/18 13:50 Ur Leukocyte Esterase Moderate (Negative) H 02/26/18 13:50 Urine RBC Not Applicable 02/26/18 13:50 Urine WBC HPF (0-5) 02/26/18 13:50 Ur Epithelial Cells Not Applicable 02/26/18 13:50 Urine Crystals Not Applicable 02/26/18 13:50 Urine Bacteria Not Applicable 02/26/18 13:50 Urine Mucus Not Applicable 02/26/18 13:50 Ur Culture Indicated? Yes 02/26/18 13:50 Urine Glucose Negative mg/dL (Negative) 02/26/18 13:50 Patient ABO/Rh O Positive 02/22/18 14:20 Antibody Screen Negative 02/22/18 14:20 Crossmatch See Detail 02/22/18 14:20 Reaction Clerical Check No clerical errors 02/23/18 06:40 Pre-Trans Blood Type O Positive 02/23/18 06:40 Pre-Trans Bld Appearanc No hemolysis/icterus 02/23/18 06:40 Pre-Trans BRITNEY Not Applicable 02/23/18 06:40 Post-Trans Blood Type O Positive 02/23/18 06:40 Post-Trans Spec Appear No hemolysis/icterus 02/23/18 06:40 Post-Trans BRITNEY Negative 02/23/18 06:40 Reaction Pathol Review Negative-complete 02/23/18 06:40
--- NOTE | 2018-02-26 18:55 | PGE_ITS ---
Assessment and Plan (1) Symptomatic anemia: Current visit: Yes Status: Acute Now s/p transfusion of a total of 4 units of PRBC's. Heme negative stool noted. Anemia presumed secondary to persistent hematuria. Case discussed today with Dr. Espitia of [facility] urology again - He continues to recommend monitoring despite slow continued drop in hemoglobin this morning. Will monitor and continue serial H/H. (2) Hematuria: Current visit: Yes Status: Acute Due to known bladder mass. Patient refuses catheterization. Discussed with Dr Espitia - who agrees that palliative radiation would be indicated in this case prior to surgery. We will keep [facility] updated on patient's condition through the weekend - the ideal plan is for him to be transferred to [facility] on Wednesday night for evaluation for potential radiation on Wednesday. (3) Bladder cancer: Current visit: Yes Status: Chronic Metastatic to lung. Patient would still like aggressive care and is full code. Scheduled for palliative cystectomy at [facility] - however, would benefit from transfer to [facility] sooner than his scheduled procedure if continued or worsening bleeding as above. (4) Chronic kidney disease, stage 5: Current visit: Yes Status: Chronic Cr continues to improve after flushing nephrostomy tubes. Continue monitoring. (5) Hyperkalemia: Current visit: Yes Status: Acute Resolved with flushing of the nephrostomy tubes. Monitor. (6) Enteritis: Current visit: Yes Status: Acute CT at time of admission with bowel wall thickening and loops of jejunum within the LUQ suspicious for an enteritis. Hemoccult negative. PPI switched to IV. Continue to monitor symptoms. (7) UTI (urinary tract infection): Current visit: Yes Status: Acute Due to Proteus Hauseri, sensitive to both Levaquin and Ceftriaxone. Continue Fluoroquinolone therapy, renally dosed, currently day #3. (8) CHF (congestive heart failure): Current visit: Yes Status: Chronic LVEF 35-40% with diffuse hypokinesis and regional variations on ECHO from 12/2017. Currently appears euvolemic. Continue BB and statin therapy and monitor volume status closely. Check daily weights. (9) DVT prophylaxis: Current visit: Yes Status: Acute Hold on anticoagulation secondary to active hematuria with significant transfusion requiring anemia. Subjective Interval history since last seen: 62 year old man with PMHx significant for bladder cancer with obstructive uropathy, s/p bilateral nephrostomy tubes, CKD stage 5 (not on dialysis), chronic hematuria with subsequent anemia, Chronic systolic CHF wih EF 35% admitted from [facility] ED on 02/23/2018 with evidence of enteritis by CT, and anemia by labwork. Mr. Rosas initially reported continuous hematuria, and that his nephrostomy tubes have not had any output since 2 days prior to his admission. He also reported fevers/chills at home. Subsequent Urinalysis showed evidence of a UTI, with cultures showing growth of Proteus Hauseri, maintained on renally dosed Levofloxacin. The patient was also noted to be anemic with a Hgb of 6.4, and was transfused with PRBCs. He was also found to have evidence of enteritis on CT. The patient is planning to undergo bladder surgery at [facility] on March 15. Nursing reports continued appearance of pyuria by left nephrostomy tube. No other events reported overnight. Patient remains afebrile. Exam Narrative Exam Narrative: General: Cachectic and ill appearing but in NAD. Skin: Pallor noted. Neck: Supple. CV: Regular. No overt Rubs, Murmurs, or Gallops. Lungs: CTAB Abdomen: soft, nontender, nondistended : Bilateral nephrostomy tubes in place; R with clear-yellow output; L with cloudy output Extremities: Trace b/l LE Edema. Objective Objective Clinical Data: Abnormal lab results 02/26/18 02/26/18 02/26/18 Range/Units 05:53 05:53 13:50 RBC 2.92 L (4.50-6.00) m/cumm Hgb 8.3 L 8.5 L (13.5-17.5) g/dL Hct 26.1 L 26.7 L (40.0-50.0) % MCHC 31.8 L (32.0-36.0) g/dL RDW 17.2 H (11.8-14.1) % Plt Count 523 H (130-400) x1000/uL Chloride 112 H (98-107) mmol/L Carbon Dioxide 20.1 L (21.0-32.0) mmol/L BUN 43 H (7-18) mg/dL Creatinine 4.87 H* (0.70-1.30) mg/dL Glucose 127 H (70-100) mg/dL Calcium 8.3 L (8.5-10.1) mg/dL Urine Protein (Negative) mg/dL Urine Blood (Negative) Ur Leukocyte Esterase (Negative) 02/26/18 Range/Units 13:50 RBC (4.50-6.00) m/cumm Hgb (13.5-17.5) g/dL Hct (40.0-50.0) % MCHC (32.0-36.0) g/dL RDW (11.8-14.1) % Plt Count (130-400) x1000/uL Chloride (98-107) mmol/L Carbon Dioxide (21.0-32.0) mmol/L BUN (7-18) mg/dL Creatinine (0.70-1.30) mg/dL Glucose (70-100) mg/dL Calcium (8.5-10.1) mg/dL Urine Protein >=300 H (Negative) mg/dL Urine Blood Large H (Negative) Ur Leukocyte Esterase Moderate H (Negative) Vital Signs Temperature 37.2 C 02/26/18 16:09 Temperature Source Tympanic 02/26/18 16:09 Pulse 87 02/26/18 16:09 Pulse Rhythm Regular 02/26/18 15:16 Pulse 93 H 02/23/18 17:30 Respiratory Rate 19 02/26/18 16:09 Respiratory Effort Non-Labored 02/26/18 15:16 Respiratory Depth Normal 02/26/18 15:16 Respiratory Pattern Normal 02/26/18 15:16 Blood Pressure 161/91 H 02/26/18 16:09 Blood Pressure Mean 91 02/23/18 17:21 Blood Pressure Position Supine 02/22/18 23:00 Pulse Oximetry 97 02/26/18 16:09 Oxygen Delivery Method Room Air 02/26/18 16:09 Oxygen Flow Rate 0 02/26/18 16:09 Pain Level 2 02/26/18 11:03 Comment 02/26/18 03:45 Intake & Output 02/25/18 02/26/18 02/26/18 23:59 11:59 23:59 Intake Total 1000 / 1000 1650 / 1650 600 / 600 Output Total 1005 / 1005 1130 / 1130 Balance -5 / -5 520 / 520 600 / 600 Intake: IV 1000 / 1000 1000 / 1000 Oral 650 / 650 600 / 600 Output: Drainage 980 / 980 Left Posterior Back 105 / 105 Right Posterior Back 875 / 875 Urine 1005 / 1005 150 / 150 Other: Urine Color Yellow Dark Red Urine Appearance Clear Hematuria Urine Odor Normal Comment 650 from right neph cath. NOT URINE, AFFLUENT FROM BLADDER R/T CANCER. Voiding Methods Ileal Conduit (Right) Laboratory Results WBC 9.82 k/cumm (4.4-10.8) 02/26/18 05:53 RBC 2.92 m/cumm (4.50-6.00) L 02/26/18 05:53 Hgb 8.5 g/dL (13.5-17.5) L 02/26/18 13:50 Hct 26.7 % (40.0-50.0) L 02/26/18 13:50 MCV 89.4 fL (80-95) 02/26/18 05:53 MCH 28.4 pg (27.0-33.0) 02/26/18 05:53 MCHC 31.8 g/dL (32.0-36.0) L 02/26/18 05:53 RDW 17.2 % (11.8-14.1) H 02/26/18 05:53 Plt Count 523 x1000/uL (130-400) H 02/26/18 05:53 MPV 9.1 fL (8.0-11.0) 02/26/18 05:53 Immature Gran % 0.5 02/25/18 06:30 Neutrophils % 63.9 02/25/18 06:30 Lymphocytes % 16.4 02/25/18 06:30 Monocytes % 16.9 02/25/18 06:30 Eosinophils % 1.7 02/25/18 06:30 Basophils % 0.6 02/25/18 06:30 Absolute Neutrophils 6.80 k/cumm (1.2-6.7) H 02/25/18 06:30 Absolute Lymphocytes 1.74 k/cumm (1.2-3.4) 02/25/18 06:30 Absolute Monocytes 1.80 k/cumm (0.11-0.7) H 02/25/18 06:30 Absolute Eosinophils 0.18 k/cumm (0.0-0.7) 02/25/18 06:30 Absolute Basophils 0.06 k/cumm (0.0-0.2) 02/25/18 06:30 Differential Comment Diff reviewed 02/22/18 12:35 RBC Morphology See below 02/22/18 12:35 Polychromasia Present 02/22/18 12:35 Hypochromasia 1+ 02/22/18 12:35 Poikilocytosis 2+ 02/22/18 12:35 Anisocytosis 1+ 02/22/18 12:35 Sodium 142 mmol/L (136-145) 02/26/18 05:53 Potassium 4.2 mmol/L (3.5-5.1) 02/26/18 05:53 Chloride 112 mmol/L (98-107) H 02/26/18 05:53 Carbon Dioxide 20.1 mmol/L (21.0-32.0) L 02/26/18 05:53 Anion Gap 9.9 mmol/L (3-11) 02/26/18 05:53 BUN 43 mg/dL (7-18) H 02/26/18 05:53 Creatinine 4.87 mg/dL (0.70-1.30) H* 02/26/18 05:53 Estimated GFR/1.73 m2 12.18 (mL/min/1.73m2) 02/26/18 05:53 Glucose 127 mg/dL (70-100) H 02/26/18 05:53 Lactate 0.7 mmol/L (0.6-1.4) 02/23/18 06:40 Calcium 8.3 mg/dL (8.5-10.1) L 02/26/18 05:53 Magnesium 1.8 mg/dL (1.8-2.4) 02/26/18 05:53 Total Bilirubin 0.3 mg/dL (0.2-1.0) 02/22/18 12:35 AST 11 U/L (15-37) L 02/22/18 12:35 ALT 11 U/L (12-78) L 02/22/18 12:35 Alkaline Phosphatase 115 U/L (46-116) 02/22/18 12:35 Troponin I < 0.02 ng/mL (0.00-0.06) 02/22/18 12:35 Total Protein 7.4 g/dL (6.4-8.2) 02/22/18 12:35 Albumin 2.3 g/dL (3.4-5.0) L 02/22/18 12:35 Lipase 71 U/L (73-393) L 02/22/18 12:35 Urine Color Yellow (Yellow) 02/26/18 13:50 Urine Clarity Turbid 02/26/18 13:50 Urine pH 7.5 (5-8) 02/26/18 13:50 Ur Specific [place] 1.025 (1.005-1.025) 02/26/18 13:50 Urine Protein >=300 mg/dL (Negative) H 02/26/18 13:50 Urine Ketones Negative mg/dL (Negative) 02/26/18 13:50 Urine Blood Large (Negative) H 02/26/18 13:50 Urine Nitrite Negative (Negative) 02/26/18 13:50 Urine Bilirubin Negative (Negative) 02/26/18 13:50 Urine Urobilinogen 0.2 EU/dL (Up TO 0.2) 02/26/18 13:50 Ur Leukocyte Esterase Moderate (Negative) H 02/26/18 13:50 Urine RBC Not Applicable 02/26/18 13:50 Urine WBC HPF (0-5) 02/26/18 13:50 Ur Epithelial Cells Not Applicable 02/26/18 13:50 Urine Crystals Not Applicable 02/26/18 13:50 Urine Bacteria Not Applicable 02/26/18 13:50 Urine Mucus Not Applicable 02/26/18 13:50 Ur Culture Indicated? Yes 02/26/18 13:50 Urine Glucose Negative mg/dL (Negative) 02/26/18 13:50 Patient ABO/Rh O Positive 02/22/18 14:20 Antibody Screen Negative 02/22/18 14:20 Crossmatch See Detail 02/22/18 14:20 Reaction Clerical Check No clerical errors 02/23/18 06:40 Pre-Trans Blood Type O Positive 02/23/18 06:40 Pre-Trans Bld Appearanc No hemolysis/icterus 02/23/18 06:40 Pre-Trans BRITNEY Not Applicable 02/23/18 06:40 Post-Trans Blood Type O Positive 02/23/18 06:40 Post-Trans Spec Appear No hemolysis/icterus 02/23/18 06:40 Post-Trans BRITNEY Negative 02/23/18 06:40 Reaction Pathol Review Negative-complete 02/23/18 06:40
[2018-02-26] MEDS: Atorvastatin 40 MG TAB 80 MG PO (19:11)
[2018-02-27] VITALS (8 sets, daily range): BP systolic 120–147; BP diastolic 79–95; PULSE 75–86; RESP 14–19; TEMP 36.7–37.5; O2SAT 95–98
[2018-02-27] MEDS: oxyCODONE 5 MG TAB 10 MG PO ×3 (06:30→21:40)
[2018-02-27] MEDS: Normal Saline 1,000 ML 100 ML IV (06:36)
[2018-02-27] MEDS: Pantoprazole 40 MG VIAL IVP (08:21)
[2018-02-27] MEDS: Carvedilol 3.125 MG TAB PO ×2 (08:21→21:40)
[2018-02-27] MEDS: Nicotine 14 MG/24 HR PATCH TD (08:21)
[2018-02-27] MEDS: Normal Saline Flush 10 ML SYR IVP ×2 (08:22→20:42)
[2018-02-27 08:40] LABS: Abs Immature Grans 0.05 k/cumm (0.0-0.09); Absolute Basophil Count 0.04 k/cumm (0.0-0.2); Absolute Eosinophil Count 0.73 k/cumm (0.0-0.7); Absolute Lymphocyte Count 1.77 k/cumm (1.2-3.4); Absolute Neutrophil Count 6.56 k/cumm (1.2-6.7); Basophils % 0.4; Eosinophils % 7.2; HCT 27.9 % (40.0-50.0); HGB 8.9 g/dL (13.5-17.5); Immature Grans % 0.5; Lymphocytes % 17.4; Mean Corp. HGB Concentration 31.9 g/dL (32.0-36.0); Mean Corpuscular Hemoglobin 28.8 pg (27.0-33.0); Mean Corpuscular Volume 90.3 fL (80-95); Mean Platelet Volume 8.6 fL (8.0-11.0); Monocytes % 9.9; Neutrophils % 64.6; Platelet Count 561 x1000/uL (130-400); RBC 3.09 m/cumm (4.50-6.00); White Blood Cell Count 10.15 k/cumm (4.4-10.8)
[2018-02-27] MEDS: Ondansetron 4 MG/2 ML VIAL IVP ×2 (08:44→20:42)
[2018-02-27 08:46] LABS: BUN 41 mg/dL (7-18); Calcium 8.4 mg/dL (8.5-10.1); Chloride 109 mmol/L (98-107); Estimated GFR 13.99 (mL/min/1.73m2); Glucose 90 mg/dL (70-100); Potassium 4.8 mmol/L (3.5-5.1); Sodium 140 mmol/L (136-145)
[2018-02-27 08:52] LABS: CREATININE 4.32 mg/dL (0.70-1.30)
[2018-02-27] MEDS: Docusate Sodium 100 MG CAP PO (13:34)
--- NOTE | 2018-02-27 16:27 | W.PM.PROGNOT ---
Assessment and Plan (1) Symptomatic anemia: Current visit: Yes Status: Acute Now s/p transfusion of a total of 4 units of PRBC's. Heme negative stool noted. Anemia presumed secondary to persistent hematuria. Case discussed today with Dr. Espitia of [facility] urology who recommended monitoring and transfusion as needed. Will monitor and continue serial H/H. (2) Hematuria: Current visit: Yes Status: Acute Due to known bladder mass. Patient refuses catheterization. Potential for palliative radiation prior to planned surgery (palliative Cystectomy). Currently with improved symptoms and stable hemoglobin. (3) Bladder cancer: Current visit: Yes Status: Chronic Metastatic to lung. Patient would still like aggressive care and is full code. Scheduled for palliative cystectomy at [facility] - however, would benefit from transfer to [facility] sooner than his scheduled procedure if continued or worsening bleeding as above. (4) Chronic kidney disease, stage 5: Current visit: Yes Status: Chronic Cr continues to improve after flushing nephrostomy tubes. Continue to monitor.. (5) Hyperkalemia: Current visit: Yes Status: Acute In setting of CHARISSE. Resolved with flushing of the nephrostomy tubes. Monitor. (6) Enteritis: Current visit: Yes Status: Acute CT at time of admission with bowel wall thickening and loops of jejunum within the LUQ suspicious for an enteritis. Hemoccult negative. PPI switched to IV. Continue to monitor symptoms - currently vastly improved. (7) UTI (urinary tract infection): Current visit: Yes Status: Acute Due to Proteus Hauseri, sensitive to both Levaquin and Ceftriaxone. Continue Fluoroquinolone therapy, renally dosed, currently day #4. (8) CHF (congestive heart failure): Current visit: Yes Status: Chronic LVEF 35-40% with diffuse hypokinesis and regional variations on ECHO from 12/2017. Currently appears euvolemic. Continue BB and statin therapy and monitor volume status closely. Check daily weights. IVF's discontinued. (9) DVT prophylaxis: Current visit: Yes Status: Acute Hold on anticoagulation secondary to active hematuria with significant transfusion requiring anemia. Ensure SCDs in place. Subjective Interval history since last seen: 62 year old man with PMHx significant for bladder cancer with obstructive uropathy, s/p bilateral nephrostomy tubes, CKD stage 5 (not on dialysis), chronic hematuria with subsequent anemia, Chronic systolic CHF wih EF 35% admitted from [facility] ED on 02/23/2018 with evidence of enteritis by CT, and anemia by labwork. Mr. Rosas initially reported continuous hematuria, and that his nephrostomy tubes have not had any output since 2 days prior to his admission. He also reported fevers/chills at home. Subsequent Urinalysis showed evidence of a UTI, with cultures showing growth of Proteus Hauseri, maintained on renally dosed Levofloxacin. The patient was also noted to be anemic with a Hgb of 6.4, and was transfused with PRBCs. He was also found to have evidence of enteritis on CT. The patient is planning to undergo bladder surgery at [facility] on March 15. This morning's Hemoglobin appears stable. Patient states that he feels vastly improved since time of admission, and states decreased volume of hematuria, but with increased frequency. No other events reported overnight. Patient remains afebrile. Exam Narrative Exam Narrative: General: Cachectic and ill appearing but in NAD. Skin: Pallor noted. Neck: Supple. CV: Regular. No overt Rubs, Murmurs, or Gallops. Lungs: CTAB Abdomen: soft, nontender, nondistended : Bilateral nephrostomy tubes in place; R with clear-yellow output; L with cloudy output Extremities: Trace b/l LE Edema. Objective Objective Clinical Data: Abnormal lab results 02/27/18 02/27/18 Range/Units 08:30 08:30 RBC 3.09 L (4.50-6.00) m/cumm Hgb 8.9 L (13.5-17.5) g/dL Hct 27.9 L (40.0-50.0) % MCHC 31.9 L (32.0-36.0) g/dL RDW 17.0 H (11.8-14.1) % Plt Count 561 H (130-400) x1000/uL Absolute Monocytes 1.00 H (0.11-0.7) k/cumm Absolute Eosinophils 0.73 H (0.0-0.7) k/cumm Chloride 109 H (98-107) mmol/L BUN 41 H (7-18) mg/dL Creatinine 4.32 H* (0.70-1.30) mg/dL Calcium 8.4 L (8.5-10.1) mg/dL Vital Signs Temperature 37.2 C 02/27/18 16:07 Temperature Source Tympanic 02/27/18 16:07 Pulse 81 02/27/18 16:07 Pulse Rhythm Regular 02/27/18 09:55 Pulse 93 H 02/23/18 17:30 Respiratory Rate 18 02/27/18 16:07 Respiratory Effort 02/27/18 09:55 Respiratory Depth Normal 02/27/18 09:55 Respiratory Pattern Normal 02/27/18 09:55 Blood Pressure 147/83 H 02/27/18 16:07 Blood Pressure Mean 91 02/23/18 17:21 Blood Pressure Position Supine 02/22/18 23:00 Pulse Oximetry 98 02/27/18 16:07 Oxygen Delivery Method Room Air 02/27/18 16:07 Oxygen Flow Rate 0 02/27/18 16:07 Pain Level 6 02/27/18 14:52 Comment 02/26/18 03:45 Intake & Output 02/26/18 02/27/18 02/27/18 23:59 11:59 23:59 Intake Total 1600 / 1600 1000 / 1000 1055 / 1055 Output Total 1130 / 1130 580 / 580 Balance 470 / 470 420 / 420 1055 / 1055 Weight 58.8 kg Intake: IV 1000 / 1000 1000 / 1000 935 / 935 Oral 600 / 600 120 / 120 Output: Drainage 900 / 900 330 / 330 Left Posterior Back 50 / 50 30 / 30 Right Posterior Back 850 / 850 300 / 300 Urine 230 / 230 250 / 250 Other: Urine Color Bright Red Webb Urine Appearance Hematuria Comment Combined volume from several small voids dark serosanguineous urine, very painful for pt when passing this urine. Right nephrostomy tube 1000cc clear pale yellow urine, left nephrostomy tube 25cc cloudy white tinted light yellow urine. Voiding Methods Urinal Urinal Toilet Laboratory Results WBC 10.15 k/cumm (4.4-10.8) 02/27/18 08:30 RBC 3.09 m/cumm (4.50-6.00) L 02/27/18 08:30 Hgb 8.9 g/dL (13.5-17.5) L 02/27/18 08:30 Hct 27.9 % (40.0-50.0) L 02/27/18 08:30 MCV 90.3 fL (80-95) 02/27/18 08:30 MCH 28.8 pg (27.0-33.0) 02/27/18 08:30 MCHC 31.9 g/dL (32.0-36.0) L 02/27/18 08:30 RDW 17.0 % (11.8-14.1) H 02/27/18 08:30 Plt Count 561 x1000/uL (130-400) H 02/27/18 08:30 MPV 8.6 fL (8.0-11.0) 02/27/18 08:30 Immature Gran % 0.5 02/27/18 08:30 Neutrophils % 64.6 02/27/18 08:30 Lymphocytes % 17.4 02/27/18 08:30 Monocytes % 9.9 02/27/18 08:30 Eosinophils % 7.2 02/27/18 08:30 Basophils % 0.4 02/27/18 08:30 Absolute Neutrophils 6.56 k/cumm (1.2-6.7) 02/27/18 08:30 Absolute Lymphocytes 1.77 k/cumm (1.2-3.4) 02/27/18 08:30 Absolute Monocytes 1.00 k/cumm (0.11-0.7) H 02/27/18 08:30 Absolute Eosinophils 0.73 k/cumm (0.0-0.7) H 02/27/18 08:30 Absolute Basophils 0.04 k/cumm (0.0-0.2) 02/27/18 08:30 Differential Comment Diff reviewed 02/22/18 12:35 RBC Morphology See below 02/22/18 12:35 Polychromasia Present 02/22/18 12:35 Hypochromasia 1+ 02/22/18 12:35 Poikilocytosis 2+ 02/22/18 12:35 Anisocytosis 1+ 02/22/18 12:35 Sodium 140 mmol/L (136-145) 02/27/18 08:30 Potassium 4.8 mmol/L (3.5-5.1) 02/27/18 08:30 Chloride 109 mmol/L (98-107) H 02/27/18 08:30 Carbon Dioxide 22.0 mmol/L (21.0-32.0) 02/27/18 08:30 Anion Gap 9.0 mmol/L (3-11) 02/27/18 08:30 BUN 41 mg/dL (7-18) H 02/27/18 08:30 Creatinine 4.32 mg/dL (0.70-1.30) H* 02/27/18 08:30 Estimated GFR/1.73 m2 13.99 (mL/min/1.73m2) 02/27/18 08:30 Glucose 90 mg/dL (70-100) 02/27/18 08:30 Lactate 0.7 mmol/L (0.6-1.4) 02/23/18 06:40 Calcium 8.4 mg/dL (8.5-10.1) L 02/27/18 08:30 Magnesium 1.8 mg/dL (1.8-2.4) 02/26/18 05:53 Total Bilirubin 0.3 mg/dL (0.2-1.0) 02/22/18 12:35 AST 11 U/L (15-37) L 02/22/18 12:35 ALT 11 U/L (12-78) L 02/22/18 12:35 Alkaline Phosphatase 115 U/L (46-116) 02/22/18 12:35 Troponin I < 0.02 ng/mL (0.00-0.06) 02/22/18 12:35 Total Protein 7.4 g/dL (6.4-8.2) 02/22/18 12:35 Albumin 2.3 g/dL (3.4-5.0) L 02/22/18 12:35 Lipase 71 U/L (73-393) L 02/22/18 12:35 Urine Color Yellow (Yellow) 02/26/18 13:50 Urine Clarity Turbid 02/26/18 13:50 Urine pH 7.5 (5-8) 02/26/18 13:50 Ur Specific [place] 1.025 (1.005-1.025) 02/26/18 13:50 Urine Protein >=300 mg/dL (Negative) H 02/26/18 13:50 Urine Ketones Negative mg/dL (Negative) 02/26/18 13:50 Urine Blood Large (Negative) H 02/26/18 13:50 Urine Nitrite Negative (Negative) 02/26/18 13:50 Urine Bilirubin Negative (Negative) 02/26/18 13:50 Urine Urobilinogen 0.2 EU/dL (Up TO 0.2) 02/26/18 13:50 Ur Leukocyte Esterase Moderate (Negative) H 02/26/18 13:50 Urine RBC Not Applicable 02/26/18 13:50 Urine WBC HPF (0-5) 02/26/18 13:50 Ur Epithelial Cells Not Applicable 02/26/18 13:50 Urine Crystals Not Applicable 02/26/18 13:50 Urine Bacteria Not Applicable 02/26/18 13:50 Urine Mucus Not Applicable 02/26/18 13:50 Ur Culture Indicated? Yes 02/26/18 13:50 Urine Glucose Negative mg/dL (Negative) 02/26/18 13:50 Patient ABO/Rh O Positive 02/22/18 14:20 Antibody Screen Negative 02/22/18 14:20 Crossmatch See Detail 02/22/18 14:20 Reaction Clerical Check No clerical errors 02/23/18 06:40 Pre-Trans Blood Type O Positive 02/23/18 06:40 Pre-Trans Bld Appearanc No hemolysis/icterus 02/23/18 06:40 Pre-Trans BRITNEY Not Applicable 02/23/18 06:40 Post-Trans Blood Type O Positive 02/23/18 06:40 Post-Trans Spec Appear No hemolysis/icterus 02/23/18 06:40 Post-Trans BRITNEY Negative 02/23/18 06:40 Reaction Pathol Review Negative-complete 02/23/18 06:40
--- NOTE | 2018-02-27 16:31 | PGE_ITS ---
Assessment and Plan (1) Symptomatic anemia: Current visit: Yes Status: Acute Now s/p transfusion of a total of 4 units of PRBC's. Heme negative stool noted. Anemia presumed secondary to persistent hematuria. Case discussed today with Dr. Espitia of [facility] [place] who recommended monitoring and transfusion as needed. Will monitor and continue serial H/H. (2) Hematuria: Current visit: Yes Status: Acute Due to known bladder mass. Patient refuses catheterization. Potential for palliative radiation prior to planned surgery (palliative Cystectomy). Currently with improved symptoms and stable hemoglobin. (3) Bladder cancer: Current visit: Yes Status: Chronic Metastatic to lung. Patient would still like aggressive care and is full code. Scheduled for palliative cystectomy at [facility] - however, would benefit from transfer to [facility] sooner than his scheduled procedure if continued or worsening bleeding as above. (4) Chronic kidney disease, stage 5: Current visit: Yes Status: Chronic Cr continues to improve after flushing nephrostomy tubes. Continue to monitor.. (5) Hyperkalemia: Current visit: Yes Status: Acute In setting of CHARISSE. Resolved with flushing of the nephrostomy tubes. Monitor. (6) Enteritis: Current visit: Yes Status: Acute CT at time of admission with bowel wall thickening and loops of jejunum within the LUQ suspicious for an enteritis. Hemoccult negative. PPI switched to IV. Continue to monitor symptoms - currently vastly improved. (7) UTI (urinary tract infection): Current visit: Yes Status: Acute Due to Proteus Hauseri, sensitive to both Levaquin and Ceftriaxone. Continue Fluoroquinolone therapy, renally dosed, currently day #4. (8) CHF (congestive heart failure): Current visit: Yes Status: Chronic LVEF 35-40% with diffuse hypokinesis and regional variations on ECHO from 12/2017. Currently appears euvolemic. Continue BB and statin therapy and monitor volume status closely. Check daily weights. IVF's discontinued. (9) DVT prophylaxis: Current visit: Yes Status: Acute Hold on anticoagulation secondary to active hematuria with significant transfusion requiring anemia. Ensure SCDs in place. Subjective Interval history since last seen: 62 year old man with PMHx significant for bladder cancer with obstructive uropathy, s/p bilateral nephrostomy tubes, CKD stage 5 (not on dialysis), chronic hematuria with subsequent anemia, Chronic systolic CHF wih EF 35% admitted from [facility] ED on 02/23/2018 with evidence of enteritis by CT, and anemia by labwork. Mr. Rosas initially reported continuous hematuria, and that his nephrostomy tubes have not had any output since 2 days prior to his admission. He also reported fevers/chills at home. Subsequent Urinalysis showed evidence of a UTI, with cultures showing growth of Proteus Hauseri, maintained on renally dosed Levofloxacin. The patient was also noted to be anemic with a Hgb of 6.4, and was transfused with PRBCs. He was also found to have evidence of enteritis on CT. The patient is planning to undergo bladder surgery at [facility] on March 15. This morning's Hemoglobin appears stable. Patient states that he feels vastly improved since time of admission, and states decreased volume of hematuria, but with increased frequency. No other events reported overnight. Patient remains afebrile. Exam Narrative Exam Narrative: General: Cachectic and ill appearing but in NAD. Skin: Pallor noted. Neck: Supple. CV: Regular. No overt Rubs, Murmurs, or Gallops. Lungs: CTAB Abdomen: soft, nontender, nondistended : Bilateral nephrostomy tubes in place; R with clear-yellow output; L with cloudy output Extremities: Trace b/l LE Edema. Objective Objective Clinical Data: Abnormal lab results 02/27/18 02/27/18 Range/Units 08:30 08:30 RBC 3.09 L (4.50-6.00) m/cumm Hgb 8.9 L (13.5-17.5) g/dL Hct 27.9 L (40.0-50.0) % MCHC 31.9 L (32.0-36.0) g/dL RDW 17.0 H (11.8-14.1) % Plt Count 561 H (130-400) x1000/uL Absolute Monocytes 1.00 H (0.11-0.7) k/cumm Absolute Eosinophils 0.73 H (0.0-0.7) k/cumm Chloride 109 H (98-107) mmol/L BUN 41 H (7-18) mg/dL Creatinine 4.32 H* (0.70-1.30) mg/dL Calcium 8.4 L (8.5-10.1) mg/dL Vital Signs Temperature 37.2 C 02/27/18 16:07 Temperature Source Tympanic 02/27/18 16:07 Pulse 81 02/27/18 16:07 Pulse Rhythm Regular 02/27/18 09:55 Pulse 93 H 02/23/18 17:30 Respiratory Rate 18 02/27/18 16:07 Respiratory Effort 02/27/18 09:55 Respiratory Depth Normal 02/27/18 09:55 Respiratory Pattern Normal 02/27/18 09:55 Blood Pressure 147/83 H 02/27/18 16:07 Blood Pressure Mean 91 02/23/18 17:21 Blood Pressure Position Supine 02/22/18 23:00 Pulse Oximetry 98 02/27/18 16:07 Oxygen Delivery Method Room Air 02/27/18 16:07 Oxygen Flow Rate 0 02/27/18 16:07 Pain Level 6 02/27/18 14:52 Comment 02/26/18 03:45 Intake & Output 02/26/18 02/27/18 02/27/18 23:59 11:59 23:59 Intake Total 1600 / 1600 1000 / 1000 1055 / 1055 Output Total 1130 / 1130 580 / 580 Balance 470 / 470 420 / 420 1055 / 1055 Weight 58.8 kg Intake: IV 1000 / 1000 1000 / 1000 935 / 935 Oral 600 / 600 120 / 120 Output: Drainage 900 / 900 330 / 330 Left Posterior Back 50 / 50 30 / 30 Right Posterior Back 850 / 850 300 / 300 Urine 230 / 230 250 / 250 Other: Urine Color Bright Red Webb Urine Appearance Hematuria Comment Combined volume from several small voids dark serosanguineous urine, very painful for pt when passing this urine. Right nephrostomy tube 1000cc clear pale yellow urine, left nephrostomy tube 25cc cloudy white tinted light yellow urine. Voiding Methods Urinal Urinal Toilet Laboratory Results WBC 10.15 k/cumm (4.4-10.8) 02/27/18 08:30 RBC 3.09 m/cumm (4.50-6.00) L 02/27/18 08:30 Hgb 8.9 g/dL (13.5-17.5) L 02/27/18 08:30 Hct 27.9 % (40.0-50.0) L 02/27/18 08:30 MCV 90.3 fL (80-95) 02/27/18 08:30 MCH 28.8 pg (27.0-33.0) 02/27/18 08:30 MCHC 31.9 g/dL (32.0-36.0) L 02/27/18 08:30 RDW 17.0 % (11.8-14.1) H 02/27/18 08:30 Plt Count 561 x1000/uL (130-400) H 02/27/18 08:30 MPV 8.6 fL (8.0-11.0) 02/27/18 08:30 Immature Gran % 0.5 02/27/18 08:30 Neutrophils % 64.6 02/27/18 08:30 Lymphocytes % 17.4 02/27/18 08:30 Monocytes % 9.9 02/27/18 08:30 Eosinophils % 7.2 02/27/18 08:30 Basophils % 0.4 02/27/18 08:30 Absolute Neutrophils 6.56 k/cumm (1.2-6.7) 02/27/18 08:30 Absolute Lymphocytes 1.77 k/cumm (1.2-3.4) 02/27/18 08:30 Absolute Monocytes 1.00 k/cumm (0.11-0.7) H 02/27/18 08:30 Absolute Eosinophils 0.73 k/cumm (0.0-0.7) H 02/27/18 08:30 Absolute Basophils 0.04 k/cumm (0.0-0.2) 02/27/18 08:30 Differential Comment Diff reviewed 02/22/18 12:35 RBC Morphology See below 02/22/18 12:35 Polychromasia Present 02/22/18 12:35 Hypochromasia 1+ 02/22/18 12:35 Poikilocytosis 2+ 02/22/18 12:35 Anisocytosis 1+ 02/22/18 12:35 Sodium 140 mmol/L (136-145) 02/27/18 08:30 Potassium 4.8 mmol/L (3.5-5.1) 02/27/18 08:30 Chloride 109 mmol/L (98-107) H 02/27/18 08:30 Carbon Dioxide 22.0 mmol/L (21.0-32.0) 02/27/18 08:30 Anion Gap 9.0 mmol/L (3-11) 02/27/18 08:30 BUN 41 mg/dL (7-18) H 02/27/18 08:30 Creatinine 4.32 mg/dL (0.70-1.30) H* 02/27/18 08:30 Estimated GFR/1.73 m2 13.99 (mL/min/1.73m2) 02/27/18 08:30 Glucose 90 mg/dL (70-100) 02/27/18 08:30 Lactate 0.7 mmol/L (0.6-1.4) 02/23/18 06:40 Calcium 8.4 mg/dL (8.5-10.1) L 02/27/18 08:30 Magnesium 1.8 mg/dL (1.8-2.4) 02/26/18 05:53 Total Bilirubin 0.3 mg/dL (0.2-1.0) 02/22/18 12:35 AST 11 U/L (15-37) L 02/22/18 12:35 ALT 11 U/L (12-78) L 02/22/18 12:35 Alkaline Phosphatase 115 U/L (46-116) 02/22/18 12:35 Troponin I < 0.02 ng/mL (0.00-0.06) 02/22/18 12:35 Total Protein 7.4 g/dL (6.4-8.2) 02/22/18 12:35 Albumin 2.3 g/dL (3.4-5.0) L 02/22/18 12:35 Lipase 71 U/L (73-393) L 02/22/18 12:35 Urine Color Yellow (Yellow) 02/26/18 13:50 Urine Clarity Turbid 02/26/18 13:50 Urine pH 7.5 (5-8) 02/26/18 13:50 Ur Specific Melbeta 1.025 (1.005-1.025) 02/26/18 13:50 Urine Protein >=300 mg/dL (Negative) H 02/26/18 13:50 Urine Ketones Negative mg/dL (Negative) 02/26/18 13:50 Urine Blood Large (Negative) H 02/26/18 13:50 Urine Nitrite Negative (Negative) 02/26/18 13:50 Urine Bilirubin Negative (Negative) 02/26/18 13:50 Urine Urobilinogen 0.2 EU/dL (Up TO 0.2) 02/26/18 13:50 Ur Leukocyte Esterase Moderate (Negative) H 02/26/18 13:50 Urine RBC Not Applicable 02/26/18 13:50 Urine WBC HPF (0-5) 02/26/18 13:50 Ur Epithelial Cells Not Applicable 02/26/18 13:50 Urine Crystals Not Applicable 02/26/18 13:50 Urine Bacteria Not Applicable 02/26/18 13:50 Urine Mucus Not Applicable 02/26/18 13:50 Ur Culture Indicated? Yes 02/26/18 13:50 Urine Glucose Negative mg/dL (Negative) 02/26/18 13:50 Patient ABO/Rh O Positive 02/22/18 14:20 Antibody Screen Negative 02/22/18 14:20 Crossmatch See Detail 02/22/18 14:20 Reaction Clerical Check No clerical errors 02/23/18 06:40 Pre-Trans Blood Type O Positive 02/23/18 06:40 Pre-Trans Bld Appearanc No hemolysis/icterus 02/23/18 06:40 Pre-Trans BRITNEY Not Applicable 02/23/18 06:40 Post-Trans Blood Type O Positive 02/23/18 06:40 Post-Trans Spec Appear No hemolysis/icterus 02/23/18 06:40 Post-Trans BRITNEY Negative 02/23/18 06:40 Reaction Pathol Review Negative-complete 02/23/18 06:40
--- NOTE | 2018-02-27 18:28 | PDOC.CMPRO ---
- If Service Date Differs Date of service: 02/27/18 Time of Service: 18:28 Care Management Progress Note S/O: CM met with Cornelio at the bedside he remains in good spirts. No change in status today his Hgb continues to be monitored. A: 62 y/o male admitted 02/23/18 for dehydration P: Cornelio will discharge when medically ready per MD. Anticipate patient will discharge home with home health services, vs transfer to [facility]. CM will continue to offer support to patient and care team regarding discharge planning and disposition.
[2018-02-27] MEDS: Atorvastatin 40 MG TAB 80 MG PO (21:40)
[2018-02-28] VITALS (7 sets, daily range): BP systolic 127–153; BP diastolic 71–89; PULSE 64–93; RESP 16–20; TEMP 36.5–37.2; O2SAT 94–99
[2018-02-28] MEDS: oxyCODONE 5 MG TAB 10 MG PO ×4 (04:46→22:04)
[2018-02-28 07:28] LABS: Abs Immature Grans 0.03 k/cumm (0.0-0.09); Absolute Basophil Count 0.04 k/cumm (0.0-0.2); Absolute Eosinophil Count 0.64 k/cumm (0.0-0.7); Absolute Lymphocyte Count 1.59 k/cumm (1.2-3.4); Absolute Neutrophil Count 6.89 k/cumm (1.2-6.7); Basophils % 0.4; Eosinophils % 6.2; HCT 28.2 % (40.0-50.0); HGB 8.6 g/dL (13.5-17.5); Immature Grans % 0.3; Lymphocytes % 15.5; Mean Corp. HGB Concentration 30.5 g/dL (32.0-36.0); Mean Corpuscular Hemoglobin 27.7 pg (27.0-33.0); Mean Platelet Volume 9.1 fL (8.0-11.0); Monocytes % 10.7; Neutrophils % 66.9; Platelet Count 570 x1000/uL (130-400); RBC Distribution Width 16.8 % (11.8-14.1); White Blood Cell Count 10.29 k/cumm (4.4-10.8)
[2018-02-28 07:38] LABS: Anion Gap 7.2 mmol/L (3-11); BUN 42 mg/dL (7-18); CO2 22.8 mmol/L (21.0-32.0); Calcium 8.4 mg/dL (8.5-10.1); Chloride 111 mmol/L (98-107); Estimated GFR 12.79 (mL/min/1.73m2); Glucose 83 mg/dL (70-100); Sodium 141 mmol/L (136-145)
[2018-02-28 07:43] LABS: CREATININE 4.67 mg/dL (0.70-1.30)
[2018-02-28] MEDS: Pantoprazole 40 MG VIAL IVP (07:51)
[2018-02-28] MEDS: Ondansetron O.D.T. 4 MG TABEF PO (07:51)
[2018-02-28] MEDS: Docusate Sodium 100 MG CAP PO ×2 (07:51→19:30)
[2018-02-28] MEDS: Normal Saline Flush 10 ML SYR IVP (07:52)
[2018-02-28] MEDS: Carvedilol 3.125 MG TAB PO ×2 (08:33→19:29)
[2018-02-28] MEDS: Nicotine 14 MG/24 HR PATCH TD (08:33)
[2018-02-28] MEDS: LEVOFLOXACIN 250 MG/50 ML BAG 50 MG IVPB (09:53)
[2018-02-28] MEDS: Polyethylene Glycol 3350 17 GM PACKET PO (11:38)
--- NOTE | 2018-02-28 12:07 | PDOC.CMPRO ---
- If Service Date Differs Date of service: 02/28/18 Time of Service: 12:07 Care Management Progress Note S/O: Cornelio was lying in bed when CM visited with him this morning. He is engaged in conversation, makes good eye contact and is talkative. Cornelio reports that he believes he will be discharging home tomorrow. CM will follow up with Cornelio in the morning. Cornelio is [place] [facility] [place] There is no change in Cornelio's status at this time. His Hgb continues to be monitored. A: 62 y/o male admitted 02/23/18 for dehydration P: Cornelio will discharge when medically ready per MD. Anticipate patient will discharge home with resumption of home health services and follow up with his PCP. Cornelio will transport via private vehicle with his ex-, Brittany. CM will continue to offer support to patient and care team regarding discharge planning and disposition.
--- NOTE | 2018-02-28 12:11 | CMPROGNOTE_ITS ---
- If Service Date Differs Date of service: 02/28/18 Time of Service: 12:07 Care Management Progress Note S/O: Cornelio was lying in bed when CM visited with him this morning. He is engaged in conversation, makes good eye contact and is talkative. Cornelio reports that he believes he will be discharging home tomorrow. CM will follow up with Cornelio in the morning. Cornelio is scheduled [place] [facility] There is no change in Cornelio's status at this time. His Hgb continues to be monitored. A: 62 y/o male admitted 02/23/18 for dehydration P: Cornelio will discharge when medically ready per MD. Anticipate patient will discharge home with resumption of home health services and follow up with his PCP. Cornelio will transport via private vehicle with his ex-, Brittany. CM will continue to offer support to patient and care team regarding discharge planning and disposition.
--- NOTE | 2018-02-28 15:13 | W.PM.PROGNOT ---
Assessment and Plan (1) Symptomatic anemia: Current visit: Yes Status: Acute Now s/p transfusion of a total of 4 units of PRBC's. Heme negative stool noted. Anemia presumed secondary to persistent hematuria. Case discussed today with Dr. Espitia of [facility] who recommended monitoring and transfusion as needed. Hemoglobin again stable. Continue to monitor. (2) Hematuria: Current visit: Yes Status: Acute Due to known bladder mass. Patient refuses catheterization. Potential for palliative radiation prior to planned surgery (palliative Cystectomy). Currently with improved symptoms and stable hemoglobin. (3) Bladder cancer: Current visit: Yes Status: Chronic Metastatic to lung. Patient would still like aggressive care and is full code. Scheduled for palliative cystectomy at [facility] - however, would benefit from transfer to [facility] sooner than his scheduled procedure if continued or worsening bleeding as above. (4) Chronic kidney disease, stage 5: Current visit: Yes Status: Chronic Cr initially improved after flushing nephrostomy tubes, but now slightly worse today. Attempts at flushing with minimal success on left nephrostomy, which is the side of infection. May need reevaluation by urology. Continue to monitor. (5) Hyperkalemia: Current visit: Yes Status: Acute In setting of CHARISSE. Resolved with flushing of the nephrostomy tubes. Monitor. (6) Enteritis: Current visit: Yes Status: Acute CT at time of admission with bowel wall thickening and loops of jejunum within the LUQ suspicious for an enteritis. Hemoccult negative. PPI switched to IV. Continue to monitor symptoms - currently improved with no further episodes of postprandial vomiting. (7) UTI (urinary tract infection): Current visit: Yes Status: Acute Due to Proteus Hauseri, sensitive to both Levaquin and Ceftriaxone. Continue Fluoroquinolone therapy, renally dosed, currently day #5. Repeat Cx with both proteus and pseudomonas, both <100,000 cfu/ml - continue current management which should cover pseudomonas species as well. (8) CHF (congestive heart failure): Current visit: Yes Status: Chronic LVEF 35-40% with diffuse hypokinesis and regional variations on ECHO from 12/2017. Currently appears euvolemic. Continue BB and statin therapy and monitor volume status closely. Check daily weights. IVF's discontinued. (9) DVT prophylaxis: Current visit: Yes Status: Acute Hold on anticoagulation secondary to active hematuria with significant transfusion requiring anemia. Ensure SCDs in place. Subjective Interval history since last seen: 62 year old man with PMHx significant for bladder cancer with obstructive uropathy, s/p bilateral nephrostomy tubes, CKD stage 5 (not on dialysis), chronic hematuria with subsequent anemia, Chronic systolic CHF wih EF 35% admitted from [facility] ED on 02/23/2018 with evidence of enteritis by CT, and anemia by labwork. Mr. Rosas initially reported continuous hematuria, and that his nephrostomy tubes have not had any output since 2 days prior to his admission. He also reported fevers/chills at home. Subsequent Urinalysis showed evidence of a UTI, with cultures showing growth of Proteus Hauseri, and repeat cultures grew <100,000 colonies/ml of both Proteus and Pseudomonas - currently maintained on renally dosed Levofloxacin. The patient was also noted to be anemic with a Hgb of 6.4, and was transfused with PRBCs. He was also found to have evidence of enteritis on CT. The patient is planning to undergo bladder surgery at [facility] on March 15. This morning's Hemoglobin appears stable. Patient states that he feels vastly improved since time of admission, and states decreased volume of hematuria, but with increased frequency. He has had continued post-prandial vomiting until today, and states that he has tolerated his breakfast and lunch without emesis. No other events reported overnight. Patient remains afebrile. Exam Narrative Exam Narrative: General: Cachectic and ill appearing but in NAD. Skin: Pallor noted. Neck: Supple. CV: Regular. No overt Rubs, Murmurs, or Gallops. Lungs: CTAB Abdomen: soft, nondistended, mild LLQ/RLQ tenderness : Bilateral nephrostomy tubes in place; R with clear-yellow output; L with continued cloudy output Extremities: Trace b/l LE Edema. Objective Objective Clinical Data: Abnormal lab results 02/28/18 02/28/18 Range/Units 06:50 06:50 RBC 3.10 L (4.50-6.00) m/cumm Hgb 8.6 L (13.5-17.5) g/dL Hct 28.2 L (40.0-50.0) % MCHC 30.5 L (32.0-36.0) g/dL RDW 16.8 H (11.8-14.1) % Plt Count 570 H (130-400) x1000/uL Absolute Neutrophils 6.89 H (1.2-6.7) k/cumm Absolute Monocytes 1.10 H (0.11-0.7) k/cumm Chloride 111 H (98-107) mmol/L BUN 42 H (7-18) mg/dL Creatinine 4.67 H* (0.70-1.30) mg/dL Calcium 8.4 L (8.5-10.1) mg/dL Vital Signs Temperature 36.8 C 02/28/18 12:00 Temperature Source Tympanic 02/28/18 12:00 Pulse 81 02/28/18 12:00 Pulse Rhythm Regular 02/28/18 10:40 Pulse 93 H 02/23/18 17:30 Respiratory Rate 18 02/28/18 12:00 Respiratory Effort 02/28/18 10:40 Respiratory Depth Normal 02/28/18 10:40 Respiratory Pattern Normal 02/28/18 10:40 Blood Pressure 127/83 02/28/18 12:00 Blood Pressure Mean 91 02/23/18 17:21 Blood Pressure Position Supine 02/22/18 23:00 Pulse Oximetry 99 02/28/18 12:00 Oxygen Delivery Method Room Air 02/28/18 12:00 Oxygen Flow Rate 0 02/28/18 12:00 Pain Level 3 02/28/18 13:37 Comment 02/26/18 03:45 Intake & Output 02/27/18 02/28/18 02/28/18 23:59 11:59 23:59 Intake Total 1305 / 1305 270 / 270 240 / 240 Output Total 2200 / 2200 2125 / 2125 Balance -895 / -895 -1855 / -1855 240 / 240 Intake: IV 945 / 945 Oral 360 / 360 250 / 250 240 / 240 Injectate 20 / 20 Left Posterior Back 20 / 20 Output: Drainage 300 / 300 1925 / 1925 Left Posterior Back 50 / 50 75 / 75 Right Posterior Back 250 / 250 1850 / 1850 Urine 100 / 100 200 / 200 Emesis 1800 / 1800 Other: Urine Appearance Hematuria Hematuria Emesis Description Retching Voiding Methods Toilet Urinal Laboratory Results WBC 10.29 k/cumm (4.4-10.8) 02/28/18 06:50 RBC 3.10 m/cumm (4.50-6.00) L 02/28/18 06:50 Hgb 8.6 g/dL (13.5-17.5) L 02/28/18 06:50 Hct 28.2 % (40.0-50.0) L 02/28/18 06:50 MCV 91.0 fL (80-95) 02/28/18 06:50 MCH 27.7 pg (27.0-33.0) 02/28/18 06:50 MCHC 30.5 g/dL (32.0-36.0) L 02/28/18 06:50 RDW 16.8 % (11.8-14.1) H 02/28/18 06:50 Plt Count 570 x1000/uL (130-400) H 02/28/18 06:50 MPV 9.1 fL (8.0-11.0) 02/28/18 06:50 Immature Gran % 0.3 02/28/18 06:50 Neutrophils % 66.9 02/28/18 06:50 Lymphocytes % 15.5 02/28/18 06:50 Monocytes % 10.7 02/28/18 06:50 Eosinophils % 6.2 02/28/18 06:50 Basophils % 0.4 02/28/18 06:50 Absolute Neutrophils 6.89 k/cumm (1.2-6.7) H 02/28/18 06:50 Absolute Lymphocytes 1.59 k/cumm (1.2-3.4) 02/28/18 06:50 Absolute Monocytes 1.10 k/cumm (0.11-0.7) H 02/28/18 06:50 Absolute Eosinophils 0.64 k/cumm (0.0-0.7) 02/28/18 06:50 Absolute Basophils 0.04 k/cumm (0.0-0.2) 02/28/18 06:50 Differential Comment Diff reviewed 02/22/18 12:35 RBC Morphology See below 02/22/18 12:35 Polychromasia Present 02/22/18 12:35 Hypochromasia 1+ 02/22/18 12:35 Poikilocytosis 2+ 02/22/18 12:35 Anisocytosis 1+ 02/22/18 12:35 Sodium 141 mmol/L (136-145) 02/28/18 06:50 Potassium 5.0 mmol/L (3.5-5.1) 02/28/18 06:50 Chloride 111 mmol/L (98-107) H 02/28/18 06:50 Carbon Dioxide 22.8 mmol/L (21.0-32.0) 02/28/18 06:50 Anion Gap 7.2 mmol/L (3-11) 02/28/18 06:50 BUN 42 mg/dL (7-18) H 02/28/18 06:50 Creatinine 4.67 mg/dL (0.70-1.30) H* 02/28/18 06:50 Estimated GFR/1.73 m2 12.79 (mL/min/1.73m2) 02/28/18 06:50 Glucose 83 mg/dL (70-100) 02/28/18 06:50 Lactate 0.7 mmol/L (0.6-1.4) 02/23/18 06:40 Calcium 8.4 mg/dL (8.5-10.1) L 02/28/18 06:50 Magnesium 1.8 mg/dL (1.8-2.4) 02/26/18 05:53 Total Bilirubin 0.3 mg/dL (0.2-1.0) 02/22/18 12:35 AST 11 U/L (15-37) L 02/22/18 12:35 ALT 11 U/L (12-78) L 02/22/18 12:35 Alkaline Phosphatase 115 U/L (46-116) 02/22/18 12:35 Troponin I < 0.02 ng/mL (0.00-0.06) 02/22/18 12:35 Total Protein 7.4 g/dL (6.4-8.2) 02/22/18 12:35 Albumin 2.3 g/dL (3.4-5.0) L 02/22/18 12:35 Lipase 71 U/L (73-393) L 02/22/18 12:35 Urine Color Yellow (Yellow) 02/26/18 13:50 Urine Clarity Turbid 02/26/18 13:50 Urine pH 7.5 (5-8) 02/26/18 13:50 Ur Specific [place] 1.025 (1.005-1.025) 02/26/18 13:50 Urine Protein >=300 mg/dL (Negative) H 02/26/18 13:50 Urine Ketones Negative mg/dL (Negative) 02/26/18 13:50 Urine Blood Large (Negative) H 02/26/18 13:50 Urine Nitrite Negative (Negative) 02/26/18 13:50 Urine Bilirubin Negative (Negative) 02/26/18 13:50 Urine Urobilinogen 0.2 EU/dL (Up TO 0.2) 02/26/18 13:50 Ur Leukocyte Esterase Moderate (Negative) H 02/26/18 13:50 Urine RBC Not Applicable 02/26/18 13:50 Urine WBC HPF (0-5) 02/26/18 13:50 Ur Epithelial Cells Not Applicable 02/26/18 13:50 Urine Crystals Not Applicable 02/26/18 13:50 Urine Bacteria Not Applicable 02/26/18 13:50 Urine Mucus Not Applicable 02/26/18 13:50 Ur Culture Indicated? Yes 02/26/18 13:50 Urine Glucose Negative mg/dL (Negative) 02/26/18 13:50 Patient ABO/Rh O Positive 02/22/18 14:20 Antibody Screen Negative 02/22/18 14:20 Crossmatch See Detail 02/22/18 14:20 Reaction Clerical Check No clerical errors 02/23/18 06:40 Pre-Trans Blood Type O Positive 02/23/18 06:40 Pre-Trans Bld Appearanc No hemolysis/icterus 02/23/18 06:40 Pre-Trans BRITNEY Not Applicable 02/23/18 06:40 Post-Trans Blood Type O Positive 02/23/18 06:40 Post-Trans Spec Appear No hemolysis/icterus 02/23/18 06:40 Post-Trans BRITNEY Negative 02/23/18 06:40 Reaction Pathol Review Negative-complete 02/23/18 06:40
--- NOTE | 2018-02-28 15:19 | PGE_ITS ---
Assessment and Plan (1) Symptomatic anemia: Current visit: Yes Status: Acute Now s/p transfusion of a total of 4 units of PRBC's. Heme negative stool noted. Anemia presumed secondary to persistent hematuria. Case discussed today with Dr. Espitia of [facility] urology who recommended monitoring and transfusion as needed. Hemoglobin again stable. Continue to monitor. (2) Hematuria: Current visit: Yes Status: Acute Due to known bladder mass. Patient refuses catheterization. Potential for palliative radiation prior to planned surgery (palliative Cystectomy). Currently with improved symptoms and stable hemoglobin. (3) Bladder cancer: Current visit: Yes Status: Chronic Metastatic to lung. Patient would still like aggressive care and is full code. Scheduled for palliative cystectomy at [facility] - however, would benefit from transfer to [facility] sooner than his scheduled procedure if continued or worsening bleeding as above. (4) Chronic kidney disease, stage 5: Current visit: Yes Status: Chronic Cr initially improved after flushing nephrostomy tubes, but now slightly worse today. Attempts at flushing with minimal success on left nephrostomy, which is the side of infection. May need reevaluation by urology. Continue to monitor. (5) Hyperkalemia: Current visit: Yes Status: Acute In setting of CHARISSE. Resolved with flushing of the nephrostomy tubes. Monitor. (6) Enteritis: Current visit: Yes Status: Acute CT at time of admission with bowel wall thickening and loops of jejunum within the LUQ suspicious for an enteritis. Hemoccult negative. PPI switched to IV. Continue to monitor symptoms - currently improved with no further episodes of postprandial vomiting. (7) UTI (urinary tract infection): Current visit: Yes Status: Acute Due to Proteus Hauseri, sensitive to both Levaquin and Ceftriaxone. Continue Fluoroquinolone therapy, renally dosed, currently day #5. Repeat Cx with both proteus and pseudomonas, both <100,000 cfu/ml - continue current management which should cover pseudomonas species as well. (8) CHF (congestive heart failure): Current visit: Yes Status: Chronic LVEF 35-40% with diffuse hypokinesis and regional variations on ECHO from 12/2017. Currently appears euvolemic. Continue BB and statin therapy and monitor volume status closely. Check daily weights. IVF's discontinued. (9) DVT prophylaxis: Current visit: Yes Status: Acute Hold on anticoagulation secondary to active hematuria with significant transfusion requiring anemia. Ensure SCDs in place. Subjective Interval history since last seen: 62 year old man with PMHx significant for bladder cancer with obstructive uropathy, s/p bilateral nephrostomy tubes, CKD stage 5 (not on dialysis), chronic hematuria with subsequent anemia, Chronic systolic CHF wih EF 35% admitted from [facility] ED on 02/23/2018 with evidence of enteritis by CT, and anemia by labwork. Mr. Rosas initially reported continuous hematuria, and that his nephrostomy tubes have not had any output since 2 days prior to his admission. He also reported fevers/chills at home. Subsequent Urinalysis showed evidence of a UTI, with cultures showing growth of Proteus Hauseri, and repeat cultures grew <100, 000 colonies/ml of both Proteus and Pseudomonas - currently maintained on renally dosed Levofloxacin. The patient was also noted to be anemic with a Hgb of 6.4, and was transfused with PRBCs. He was also found to have evidence of enteritis on CT. The patient is planning to undergo bladder surgery at [facility] on March 15. This morning's Hemoglobin appears stable. Patient states that he feels vastly improved since time of admission, and states decreased volume of hematuria, but with increased frequency. He has had continued post-prandial vomiting until today, and states that he has tolerated his breakfast and lunch without emesis. No other events reported overnight. Patient remains afebrile. Exam Narrative Exam Narrative: General: Cachectic and ill appearing but in NAD. Skin: Pallor noted. Neck: Supple. CV: Regular. No overt Rubs, Murmurs, or Gallops. Lungs: CTAB Abdomen: soft, nondistended, mild LLQ/RLQ tenderness : Bilateral nephrostomy tubes in place; R with clear-yellow output; L with continued cloudy output Extremities: Trace b/l LE Edema. Objective Objective Clinical Data: Abnormal lab results 02/28/18 02/28/18 Range/Units 06:50 06:50 RBC 3.10 L (4.50-6.00) m/cumm Hgb 8.6 L (13.5-17.5) g/dL Hct 28.2 L (40.0-50.0) % MCHC 30.5 L (32.0-36.0) g/dL RDW 16.8 H (11.8-14.1) % Plt Count 570 H (130-400) x1000/uL Absolute Neutrophils 6.89 H (1.2-6.7) k/cumm Absolute Monocytes 1.10 H (0.11-0.7) k/cumm Chloride 111 H (98-107) mmol/L BUN 42 H (7-18) mg/dL Creatinine 4.67 H* (0.70-1.30) mg/dL Calcium 8.4 L (8.5-10.1) mg/dL Vital Signs Temperature 36.8 C 02/28/18 12:00 Temperature Source Tympanic 02/28/18 12:00 Pulse 81 02/28/18 12:00 Pulse Rhythm Regular 02/28/18 10:40 Pulse 93 H 02/23/18 17:30 Respiratory Rate 18 02/28/18 12:00 Respiratory Effort 02/28/18 10:40 Respiratory Depth Normal 02/28/18 10:40 Respiratory Pattern Normal 02/28/18 10:40 Blood Pressure 127/83 02/28/18 12:00 Blood Pressure Mean 91 02/23/18 17:21 Blood Pressure Position Supine 02/22/18 23:00 Pulse Oximetry 99 02/28/18 12:00 Oxygen Delivery Method Room Air 02/28/18 12:00 Oxygen Flow Rate 0 02/28/18 12:00 Pain Level 3 02/28/18 13:37 Comment 02/26/18 03:45 Intake & Output 02/27/18 02/28/18 02/28/18 23:59 11:59 23:59 Intake Total 1305 / 1305 270 / 270 240 / 240 Output Total 2200 / 2200 2125 / 2125 Balance -895 / -895 -1855 / -1855 240 / 240 Intake: IV 945 / 945 Oral 360 / 360 250 / 250 240 / 240 Injectate 20 / 20 Left Posterior Back 20 / 20 Output: Drainage 300 / 300 1925 / 1925 Left Posterior Back 50 / 50 75 / 75 Right Posterior Back 250 / 250 1850 / 1850 Urine 100 / 100 200 / 200 Emesis 1800 / 1800 Other: Urine Appearance Hematuria Hematuria Emesis Description Retching Voiding Methods Toilet Urinal Laboratory Results WBC 10.29 k/cumm (4.4-10.8) 02/28/18 06:50 RBC 3.10 m/cumm (4.50-6.00) L 02/28/18 06:50 Hgb 8.6 g/dL (13.5-17.5) L 02/28/18 06:50 Hct 28.2 % (40.0-50.0) L 02/28/18 06:50 MCV 91.0 fL (80-95) 02/28/18 06:50 MCH 27.7 pg (27.0-33.0) 02/28/18 06:50 MCHC 30.5 g/dL (32.0-36.0) L 02/28/18 06:50 RDW 16.8 % (11.8-14.1) H 02/28/18 06:50 Plt Count 570 x1000/uL (130-400) H 02/28/18 06:50 MPV 9.1 fL (8.0-11.0) 02/28/18 06:50 Immature Gran % 0.3 02/28/18 06:50 Neutrophils % 66.9 02/28/18 06:50 Lymphocytes % 15.5 02/28/18 06:50 Monocytes % 10.7 02/28/18 06:50 Eosinophils % 6.2 02/28/18 06:50 Basophils % 0.4 02/28/18 06:50 Absolute Neutrophils 6.89 k/cumm (1.2-6.7) H 02/28/18 06:50 Absolute Lymphocytes 1.59 k/cumm (1.2-3.4) 02/28/18 06:50 Absolute Monocytes 1.10 k/cumm (0.11-0.7) H 02/28/18 06:50 Absolute Eosinophils 0.64 k/cumm (0.0-0.7) 02/28/18 06:50 Absolute Basophils 0.04 k/cumm (0.0-0.2) 02/28/18 06:50 Differential Comment Diff reviewed 02/22/18 12:35 RBC Morphology See below 02/22/18 12:35 Polychromasia Present 02/22/18 12:35 Hypochromasia 1+ 02/22/18 12:35 Poikilocytosis 2+ 02/22/18 12:35 Anisocytosis 1+ 02/22/18 12:35 Sodium 141 mmol/L (136-145) 02/28/18 06:50 Potassium 5.0 mmol/L (3.5-5.1) 02/28/18 06:50 Chloride 111 mmol/L (98-107) H 02/28/18 06:50 Carbon Dioxide 22.8 mmol/L (21.0-32.0) 02/28/18 06:50 Anion Gap 7.2 mmol/L (3-11) 02/28/18 06:50 BUN 42 mg/dL (7-18) H 02/28/18 06:50 Creatinine 4.67 mg/dL (0.70-1.30) H* 02/28/18 06:50 Estimated GFR/1.73 m2 12.79 (mL/min/1.73m2) 02/28/18 06:50 Glucose 83 mg/dL (70-100) 02/28/18 06:50 Lactate 0.7 mmol/L (0.6-1.4) 02/23/18 06:40 Calcium 8.4 mg/dL (8.5-10.1) L 02/28/18 06:50 Magnesium 1.8 mg/dL (1.8-2.4) 02/26/18 05:53 Total Bilirubin 0.3 mg/dL (0.2-1.0) 02/22/18 12:35 AST 11 U/L (15-37) L 02/22/18 12:35 ALT 11 U/L (12-78) L 02/22/18 12:35 Alkaline Phosphatase 115 U/L (46-116) 02/22/18 12:35 Troponin I < 0.02 ng/mL (0.00-0.06) 02/22/18 12:35 Total Protein 7.4 g/dL (6.4-8.2) 02/22/18 12:35 Albumin 2.3 g/dL (3.4-5.0) L 02/22/18 12:35 Lipase 71 U/L (73-393) L 02/22/18 12:35 Urine Color Yellow (Yellow) 02/26/18 13:50 Urine Clarity Turbid 02/26/18 13:50 Urine pH 7.5 (5-8) 02/26/18 13:50 Ur Specific [place] 1.025 (1.005-1.025) 02/26/18 13:50 Urine Protein >=300 mg/dL (Negative) H 02/26/18 13:50 Urine Ketones Negative mg/dL (Negative) 02/26/18 13:50 Urine Blood Large (Negative) H 02/26/18 13:50 Urine Nitrite Negative (Negative) 02/26/18 13:50 Urine Bilirubin Negative (Negative) 02/26/18 13:50 Urine Urobilinogen 0.2 EU/dL (Up TO 0.2) 02/26/18 13:50 Ur Leukocyte Esterase Moderate (Negative) H 02/26/18 13:50 Urine RBC Not Applicable 02/26/18 13:50 Urine WBC HPF (0-5) 02/26/18 13:50 Ur Epithelial Cells Not Applicable 02/26/18 13:50 Urine Crystals Not Applicable 02/26/18 13:50 Urine Bacteria Not Applicable 02/26/18 13:50 Urine Mucus Not Applicable 02/26/18 13:50 Ur Culture Indicated? Yes 02/26/18 13:50 Urine Glucose Negative mg/dL (Negative) 02/26/18 13:50 Patient ABO/Rh O Positive 02/22/18 14:20 Antibody Screen Negative 02/22/18 14:20 Crossmatch See Detail 02/22/18 14:20 Reaction Clerical Check No clerical errors 02/23/18 06:40 Pre-Trans Blood Type O Positive 02/23/18 06:40 Pre-Trans Bld Appearanc No hemolysis/icterus 02/23/18 06:40 Pre-Trans BRITNEY Not Applicable 02/23/18 06:40 Post-Trans Blood Type O Positive 02/23/18 06:40 Post-Trans Spec Appear No hemolysis/icterus 02/23/18 06:40 Post-Trans BRITNEY Negative 02/23/18 06:40 Reaction Pathol Review Negative-complete 02/23/18 06:40
[2018-02-28] MEDS: Atorvastatin 40 MG TAB 80 MG PO (21:37)
[2018-03-01 07:19] LABS: Abs Immature Grans 0.03 k/cumm (0.0-0.09); Absolute Basophil Count 0.05 k/cumm (0.0-0.2); Absolute Eosinophil Count 0.68 k/cumm (0.0-0.7); Absolute Lymphocyte Count 1.39 k/cumm (1.2-3.4); Absolute Monocyte Count 1.17 k/cumm (0.11-0.7); Absolute Neutrophil Count 7.22 k/cumm (1.2-6.7); Basophils % 0.5; Eosinophils % 6.5; HCT 26.8 % (40.0-50.0); HGB 8.5 g/dL (13.5-17.5); Immature Grans % 0.3; Lymphocytes % 13.2; Mean Corp. HGB Concentration 31.7 g/dL (32.0-36.0); Mean Corpuscular Hemoglobin 28.5 pg (27.0-33.0); Mean Corpuscular Volume 89.9 fL (80-95); Mean Platelet Volume 8.9 fL (8.0-11.0); Monocytes % 11.1; Neutrophils % 68.4; Platelet Count 532 x1000/uL (130-400); RBC 2.98 m/cumm (4.50-6.00); RBC Distribution Width 16.4 % (11.8-14.1); White Blood Cell Count 10.54 k/cumm (4.4-10.8)
[2018-03-01 07:35] LABS: Anion Gap 8.8 mmol/L (3-11); BUN 46 mg/dL (7-18); CO2 21.2 mmol/L (21.0-32.0); Calcium 8.7 mg/dL (8.5-10.1); Chloride 104 mmol/L (98-107); Estimated GFR 13.31 (mL/min/1.73m2); Glucose 96 mg/dL (70-100); Potassium 4.9 mmol/L (3.5-5.1); Sodium 134 mmol/L (136-145)
[2018-03-01 07:42] LABS: CREATININE 4.51 mg/dL (0.70-1.30)
[2018-03-01 07:49] VITALS: BP 137/91; PULSE 104; RESP 19; TEMP 37.1; O2SAT 97
[2018-03-01] MEDS: Nicotine 14 MG/24 HR PATCH TD (07:51)
[2018-03-01] MEDS: Carvedilol 3.125 MG TAB PO ×2 (07:52→19:51)
[2018-03-01] MEDS: Normal Saline Flush 10 ML SYR IVP (07:52)
[2018-03-01] MEDS: Pantoprazole 40 MG VIAL IVP (07:52)
[2018-03-01] MEDS: Docusate Sodium 100 MG CAP PO ×3 (08:00→19:51)
[2018-03-01] MEDS: oxyCODONE 5 MG TAB 10 MG PO ×2 (08:00→21:03)
--- NOTE | 2018-03-01 09:16 | PT.INNT ---
Date of service: 03/01/18 Time of Service: 09:16 PT Notes PHYSICAL THERAPY NOTE 03/01/18 PT Consult received, chart reviewed. Attempted to see patient for PT consult, pt deferred therapy services stating he is getting around fine. Reports he has been getting up in room and walking to bathroom without difficulty, states he does not need a cane or walker. P.T spoke with BRII Dumont who confirmed patient has no difficulty with mobility. D/C P.T consult per patient request. Pt has no needs at this time per patient and BRII Johnson PT
--- NOTE | 2018-03-01 10:33 | W.PALPGNOTE ---
Date of service: 03/01/18 Time of Service: 09:33 Assessment and Plan (1) Goals of care, counseling/discussion: Current visit: Yes Status: Acute Wants to move forward with surgery with Dr. Pleitez at [facility] urologic oncology. Due to see some doctor at [facility] tomorrow, 17. Advised he NEEDS to keep that appointment if he is intent on having surgery at end of month. He looks MUCH IMPROVED since I saw him last week. Anemia is stable. He received 4 units PRBCs on this admission. Still having some gushes of blood through his penis, but not constant severe bleeding he had the few days prior to this admission. He is nauseated all the time, is vomiting. Suggested SCHEDULED ANTI-EMETICS. Would choose the medication least nephrotoxic. He is constipated, feels bloated. Suggested more aggressive bowel meds, again with concern for his STAGE V CKD. His pain is not completely controlled, interfering with his sleep he states. He did not look uncomfortable during my exam. Advised that a fentanyl patch is PREFERRED for people with kidney failure. Also, nausea and vomiting is preventing his pain meds from being absorbed. Plan is for discharge (presuming his n/v/c can be treated) tomorrow in time for him to get to his 2:15 pm apt at [facility]. (2) Bladder cancer: Current visit: Yes Status: Chronic Due for major surgery including ystectomy and creation of ileal conduit on 03/15/18 at [facility]. (3) Anemia due to blood loss: Current visit: Yes Status: Acute Stable currently. From bladder bleeding and causing hematuria. Clincially improved. (4) Malfunction of nephrostomy tube: Current visit: Yes Status: Acute Still putting out significantly less from left tube than right. This has been true since they were first placed, per patient. Subjective Patient reports: feels better, still having pain, no bowel movement, nausea and vomiting Interval history since last seen: Clinically looks much improved since I saw him last week. Has some color to his cheeks. Hemoglobin between 8.3 and 8.9 x last five days. For two days prior to admission, Cornelio was putting out 1000 CC/day of mixed urine though mostly blood through his penis. Now, still has some, but not bad. Right nephrostomy tube still putting out much more than left. Tolerating his antibiotics for both enteritis and presumed pyleo due to partially obstructed tube on left. Today's he's been vomiting. Said he vomited yesterday too. No BM x 3 days. Pain not being well managed by oral pain meds. Would like to try patch so he won't throw it up. Talked about planned discharge for tomorrow. He has appointment at [facility] urology at 14:15 tomorrow, with labs to be drawn first. Advised I would ask CM to look up what labs need to be drawn and to get those done. Should be discharged tomorrow in time for apt, ideally. Exam Const General: cooperative, comfortable and disheveled Nutritional Appearance: thin Orientation: alert, awake and oriented x3 HENMT Head: normocephalic Ears: hearing grossly normal bilaterally Eyes Conjunctivae: conjunctivae normal Sclera: scleral abnormality (pale) bilaterally Pupils: PERRL Neck Neck: no lymphadenopathy Resp Effort & Inspection: normal respiratory effort and able to speak in complete sentences Auscultation: clear to auscultation bilaterally Cardio Jugular venous pressure: no JVD Rate: tachycardic Rhythm: regular rhythm GI Palpation: firm and tender Auscultation: hypoactive bowel sounds Neuro General: alert, awake and oriented x3 Cranial Nerves: CN's II-XI intact bilaterally Cognition: normal cognition Speech: speech normal Psych Appearance: grossly normal and disheveled Mental Status: mental status grossly normal Speech and Movement: speech and movement normal Mood: congruent mood Affect: normal affect Attitude: cooperative Thought Process: normal Thought Content: normal Insight: fair Judgment: fair Other: not sure that he understands that the proposed surgery with urology scheduled for 03/15 is palliative, not curative I told him that this surgery will LIKELY give him more time with his son, who is only 6 I told him he might be able to see him through elementary school, but I don't know details. IF HE WANTS more prognostic information, he should talk to his cancer doctors. Objective Objective Clinical Data: Abnormal lab results 03/01/18 03/01/18 Range/Units 06:56 06:56 RBC 2.98 L (4.50-6.00) m/cumm Hgb 8.5 L (13.5-17.5) g/dL Hct 26.8 L (40.0-50.0) % MCHC 31.7 L (32.0-36.0) g/dL RDW 16.4 H (11.8-14.1) % Plt Count 532 H (130-400) x1000/uL Absolute Neutrophils 7.22 H (1.2-6.7) k/cumm Absolute Monocytes 1.17 H (0.11-0.7) k/cumm Sodium 134 L (136-145) mmol/L BUN 46 H (7-18) mg/dL Creatinine 4.51 H* (0.70-1.30) mg/dL Vital Signs Temperature 98.8 F 03/01/18 07:49 Temperature Source Skin 03/01/18 07:49 Pulse 104 H 03/01/18 07:49 Pulse Rhythm Regular 02/28/18 19:47 Pulse 93 H 02/23/18 17:30 Respiratory Rate 19 03/01/18 07:49 Respiratory Effort 02/28/18 19:47 Respiratory Depth Normal 02/28/18 19:47 Respiratory Pattern Normal 02/28/18 19:47 Blood Pressure 137/91 H 03/01/18 07:49 Blood Pressure Mean 91 02/23/18 17:21 Blood Pressure Position Supine 02/22/18 23:00 Pulse Oximetry 97 03/01/18 07:49 Oxygen Delivery Method Room Air 03/01/18 07:49 Oxygen Flow Rate 0 03/01/18 07:49 Pain Level 3 03/01/18 08:00 Comment 02/26/18 03:45 Intake & Output 02/28/18 02/28/18 03/01/18 11:59 23:59 11:59 Intake Total 270 / 270 530 / 530 710 / 710 Output Total 2125 / 2125 450 / 450 1475 / 1475 Balance -1855 / -1855 80 / 80 -765 / -765 Intake: IV 50 / 50 Oral 250 / 250 480 / 480 710 / 710 Injectate 20 / 20 Left Posterior Back 20 / 20 Output: Drainage 1924 / 192 1475 / 1475 Left Posterior Back 75 / 75 100 / 100 Right Posterior Back 1850 / 1850 1375 / 1375 Urine 200 / 200 450 / 450 Other: Urine Color Dark Red Yellow [place] Urine Appearance Hematuria Hematuria Clear Urine Odor Normal Stool Size Smear Stool Characteristics Hard Voiding Methods Urinal Urinal Toilet Laboratory Results WBC 10.54 k/cumm (4.4-10.8) 03/01/18 06:56 RBC 2.98 m/cumm (4.50-6.00) L 03/01/18 06:56 Hgb 8.5 g/dL (13.5-17.5) L 03/01/18 06:56 Hct 26.8 % (40.0-50.0) L 03/01/18 06:56 MCV 89.9 fL (80-95) 03/01/18 06:56 MCH 28.5 pg (27.0-33.0) 03/01/18 06:56 MCHC 31.7 g/dL (32.0-36.0) L 03/01/18 06:56 RDW 16.4 % (11.8-14.1) H 03/01/18 06:56 Plt Count 532 x1000/uL (130-400) H 03/01/18 06:56 MPV 8.9 fL (8.0-11.0) 03/01/18 06:56 Immature Gran % 0.3 03/01/18 06:56 Neutrophils % 68.4 03/01/18 06:56 Lymphocytes % 13.2 03/01/18 06:56 Monocytes % 11.1 03/01/18 06:56 Eosinophils % 6.5 03/01/18 06:56 Basophils % 0.5 03/01/18 06:56 Absolute Neutrophils 7.22 k/cumm (1.2-6.7) H 03/01/18 06:56 Absolute Lymphocytes 1.39 k/cumm (1.2-3.4) 03/01/18 06:56 Absolute Monocytes 1.17 k/cumm (0.11-0.7) H 03/01/18 06:56 Absolute Eosinophils 0.68 k/cumm (0.0-0.7) 03/01/18 06:56 Absolute Basophils 0.05 k/cumm (0.0-0.2) 03/01/18 06:56 Differential Comment Diff reviewed 02/22/18 12:35 RBC Morphology See below 02/22/18 12:35 Polychromasia Present 02/22/18 12:35 Hypochromasia 1+ 02/22/18 12:35 Poikilocytosis 2+ 02/22/18 12:35 Anisocytosis 1+ 02/22/18 12:35 Sodium 134 mmol/L (136-145) L 03/01/18 06:56 Potassium 4.9 mmol/L (3.5-5.1) 03/01/18 06:56 Chloride 104 mmol/L (98-107) 03/01/18 06:56 Carbon Dioxide 21.2 mmol/L (21.0-32.0) 03/01/18 06:56 Anion Gap 8.8 mmol/L (3-11) 03/01/18 06:56 BUN 46 mg/dL (7-18) H 03/01/18 06:56 Creatinine 4.51 mg/dL (0.70-1.30) H* 03/01/18 06:56 Estimated GFR/1.73 m2 13.31 (mL/min/1.73m2) 03/01/18 06:56 Glucose 96 mg/dL (70-100) 03/01/18 06:56 Lactate 0.7 mmol/L (0.6-1.4) 02/23/18 06:40 Calcium 8.7 mg/dL (8.5-10.1) 03/01/18 06:56 Magnesium 1.8 mg/dL (1.8-2.4) 02/26/18 05:53 Total Bilirubin 0.3 mg/dL (0.2-1.0) 02/22/18 12:35 AST 11 U/L (15-37) L 02/22/18 12:35 ALT 11 U/L (12-78) L 02/22/18 12:35 Alkaline Phosphatase 115 U/L (46-116) 02/22/18 12:35 Troponin I < 0.02 ng/mL (0.00-0.06) 02/22/18 12:35 Total Protein 7.4 g/dL (6.4-8.2) 02/22/18 12:35 Albumin 2.3 g/dL (3.4-5.0) L 02/22/18 12:35 Lipase 71 U/L (73-393) L 02/22/18 12:35 Urine Color Yellow (Yellow) 02/26/18 13:50 Urine Clarity Turbid 02/26/18 13:50 Urine pH 7.5 (5-8) 02/26/18 13:50 Ur Specific [place] 1.025 (1.005-1.025) 02/26/18 13:50 Urine Protein >=300 mg/dL (Negative) H 02/26/18 13:50 Urine Ketones Negative mg/dL (Negative) 02/26/18 13:50 Urine Blood Large (Negative) H 02/26/18 13:50 Urine Nitrite Negative (Negative) 02/26/18 13:50 Urine Bilirubin Negative (Negative) 02/26/18 13:50 Urine Urobilinogen 0.2 EU/dL (Up TO 0.2) 02/26/18 13:50 Ur Leukocyte Esterase Moderate (Negative) H 02/26/18 13:50 Urine RBC Not Applicable 02/26/18 13:50 Urine WBC HPF (0-5) 02/26/18 13:50 Ur Epithelial Cells Not Applicable 02/26/18 13:50 Urine Crystals Not Applicable 02/26/18 13:50 Urine Bacteria Not Applicable 02/26/18 13:50 Urine Mucus Not Applicable 02/26/18 13:50 Ur Culture Indicated? Yes 02/26/18 13:50 Urine Glucose Negative mg/dL (Negative) 02/26/18 13:50 Patient ABO/Rh O Positive 02/22/18 14:20 Antibody Screen Negative 02/22/18 14:20 Crossmatch See Detail 02/22/18 14:20 Reaction Clerical Check No clerical errors 02/23/18 06:40 Pre-Trans Blood Type O Positive 02/23/18 06:40 Pre-Trans Bld Appearanc No hemolysis/icterus 02/23/18 06:40 Pre-Trans BRITNEY Not Applicable 02/23/18 06:40 Post-Trans Blood Type O Positive 02/23/18 06:40 Post-Trans Spec Appear No hemolysis/icterus 02/23/18 06:40 Post-Trans BRITNEY Negative 02/23/18 06:40 Reaction Pathol Review Negative-complete 02/23/18 06:40
[2018-03-01 11:22] VITALS: BP 116/73; PULSE 80; RESP 18; TEMP 37; O2SAT 94
[2018-03-01] MEDS: fentaNYL 12 MCG PATCH TD (11:25)
--- NOTE | 2018-03-01 12:39 | W.PM.PROGNOT ---
Assessment and Plan (1) Symptomatic anemia: Current visit: Yes Status: Acute S/p transfusion with total of 4 units of PRBC's. Heme negative stool noted. Anemia presumed secondary to persistent hematuria. Case discussed previously with Dr. Espitia of [facility] urology who recommended monitoring and transfusion as needed. Hemoglobin again stable. Continue to monitor. (2) Hematuria: Current visit: Yes Status: Acute Due to known bladder mass. Patient refuses catheterization. Potential for palliative radiation prior to planned surgery (palliative Cystectomy). Currently with improved symptoms and stable hemoglobin. (3) Bladder cancer: Current visit: Yes Status: Chronic Metastatic to lung. Patient would still like aggressive care and is full code. Scheduled for palliative cystectomy at [facility] - however, would benefit from transfer to [facility] sooner than his scheduled procedure if continued or worsening bleeding. Per Palliative care instructions will initiate low dose fentanyl patch today, continue oxy on prn basis, and titrate as needed. Bowel Regimen instituted as well. (4) Chronic kidney disease, stage 5: Current visit: Yes Status: Chronic Cr initially improved after flushing nephrostomy tubes. Left Nephrostomy with chronically lower output that right. Tubes were flushed again yesterday. Continue to monitor, avoid nephrotoxins, and renally dose medications when appropriate. (5) Enteritis: Current visit: Yes Status: Acute CT at time of admission with bowel wall thickening and loops of jejunum within the LUQ suspicious for an enteritis. Patient reports bouts of diarrhea at home prior to coming to the hospital, and now with continued postprandial vomiting. Hemoccult negative. PPI switched to IV. Check KUB today, anti-emetics, and dietary modifications. Continue to monitor symptoms. (6) UTI (urinary tract infection): Current visit: Yes Status: Acute Due to Proteus Hauseri, sensitive to both Levaquin and Ceftriaxone. Continue Fluoroquinolone therapy, renally dosed, currently day #6. Repeat Cx with both proteus and pseudomonas, both <100,000 cfu/ml - continue current management which should cover pseudomonas species as well. (7) CHF (congestive heart failure): Current visit: Yes Status: Chronic LVEF 35-40% with diffuse hypokinesis and regional variations on ECHO from 12/2017. Currently appears euvolemic, weight stable. Continue BB and statin therapy and monitor volume status closely. Check daily weights. IVF's discontinued. (8) DVT prophylaxis: Current visit: Yes Status: Acute Hold on anticoagulation secondary to active hematuria with significant transfusion requiring anemia. Ensure SCDs in place. Subjective Interval history since last seen: 62 year old man with PMHx significant for bladder cancer with obstructive uropathy, s/p bilateral nephrostomy tubes, CKD stage 5 (not on dialysis), chronic hematuria with subsequent anemia, Chronic systolic CHF wih EF 35% admitted from [facility] ED on 02/23/2018 with evidence of enteritis by CT, and anemia by labwork. Mr. Rosas initially reported continuous hematuria, and that his nephrostomy tubes have not had any output since 2 days prior to his admission. He also reported fevers/chills at home. Subsequent Urinalysis showed evidence of a UTI, with cultures showing growth of Proteus Hauseri, and repeat cultures grew <100,000 colonies/ml of both Proteus and Pseudomonas - currently maintained on renally dosed Levofloxacin. The patient was also noted to be anemic with a Hgb of 6.4, and was transfused with PRBCs. He was also found to have evidence of enteritis on CT. Although he reported improved symptoms yesterday, he states continued episodes of postprandial vomiting. The patient is planning to undergo bladder surgery at [facility] on March 15. This morning's Hemoglobin appears stable. Patient states that he feels vastly improved since time of admission, and states decreased volume of hematuria, but with increased frequency. No other events reported overnight. Patient remains afebrile. Exam Narrative Exam Narrative: General: Cachectic and ill appearing but in NAD. Skin: Pallor noted. Neck: Supple. CV: Regular. No overt Rubs, Murmurs, or Gallops. Lungs: CTAB Abdomen: soft, nondistended, mild LLQ/RLQ tenderness : Bilateral nephrostomy tubes in place; R with clear-yellow output; L with continued cloudy output Extremities: Trace b/l LE Edema. Objective Objective Clinical Data: Abnormal lab results 03/01/18 03/01/18 Range/Units 06:56 06:56 RBC 2.98 L (4.50-6.00) m/cumm Hgb 8.5 L (13.5-17.5) g/dL Hct 26.8 L (40.0-50.0) % MCHC 31.7 L (32.0-36.0) g/dL RDW 16.4 H (11.8-14.1) % Plt Count 532 H (130-400) x1000/uL Absolute Neutrophils 7.22 H (1.2-6.7) k/cumm Absolute Monocytes 1.17 H (0.11-0.7) k/cumm Sodium 134 L (136-145) mmol/L BUN 46 H (7-18) mg/dL Creatinine 4.51 H* (0.70-1.30) mg/dL Vital Signs Temperature 37.0 C 03/01/18 11:22 Temperature Source Skin 03/01/18 11:22 Pulse 80 03/01/18 11:22 Pulse Rhythm Regular 03/01/18 11:07 Pulse 93 H 02/23/18 17:30 Respiratory Rate 18 03/01/18 11:22 Respiratory Effort 03/01/18 11:07 Respiratory Depth Normal 03/01/18 11:07 Respiratory Pattern Normal 03/01/18 11:07 Blood Pressure 116/73 03/01/18 11:22 Blood Pressure Mean 91 02/23/18 17:21 Blood Pressure Position Supine 02/22/18 23:00 Pulse Oximetry 94 L 03/01/18 11:22 Oxygen Delivery Method Room Air 03/01/18 11:22 Oxygen Flow Rate 0 03/01/18 11:22 Pain Level 3 03/01/18 08:00 Comment 02/26/18 03:45 Intake & Output 02/28/18 03/01/18 03/01/18 23:59 11:59 23:59 Intake Total 530 / 530 710 / 710 Output Total 450 / 450 1475 / 1475 Balance 80 / 80 -765 / -765 Weight 56.4 kg Intake: IV 50 / 50 Oral 480 / 480 710 / 710 Output: Drainage 1475 / 1475 Left Posterior Back 100 / 100 Right Posterior Back 1375 / 1375 Urine 450 / 450 Other: Urine Color Dark Red Yellow [place] Urine Appearance Hematuria Clear Urine Odor Normal Stool Size Smear Stool Characteristics Hard Voiding Methods Urinal Toilet Laboratory Results WBC 10.54 k/cumm (4.4-10.8) 03/01/18 06:56 RBC 2.98 m/cumm (4.50-6.00) L 03/01/18 06:56 Hgb 8.5 g/dL (13.5-17.5) L 03/01/18 06:56 Hct 26.8 % (40.0-50.0) L 03/01/18 06:56 MCV 89.9 fL (80-95) 03/01/18 06:56 MCH 28.5 pg (27.0-33.0) 03/01/18 06:56 MCHC 31.7 g/dL (32.0-36.0) L 03/01/18 06:56 RDW 16.4 % (11.8-14.1) H 03/01/18 06:56 Plt Count 532 x1000/uL (130-400) H 03/01/18 06:56 MPV 8.9 fL (8.0-11.0) 03/01/18 06:56 Immature Gran % 0.3 03/01/18 06:56 Neutrophils % 68.4 03/01/18 06:56 Lymphocytes % 13.2 03/01/18 06:56 Monocytes % 11.1 03/01/18 06:56 Eosinophils % 6.5 03/01/18 06:56 Basophils % 0.5 03/01/18 06:56 Absolute Neutrophils 7.22 k/cumm (1.2-6.7) H 03/01/18 06:56 Absolute Lymphocytes 1.39 k/cumm (1.2-3.4) 03/01/18 06:56 Absolute Monocytes 1.17 k/cumm (0.11-0.7) H 03/01/18 06:56 Absolute Eosinophils 0.68 k/cumm (0.0-0.7) 03/01/18 06:56 Absolute Basophils 0.05 k/cumm (0.0-0.2) 03/01/18 06:56 Differential Comment Diff reviewed 02/22/18 12:35 RBC Morphology See below 02/22/18 12:35 Polychromasia Present 02/22/18 12:35 Hypochromasia 1+ 02/22/18 12:35 Poikilocytosis 2+ 02/22/18 12:35 Anisocytosis 1+ 02/22/18 12:35 Sodium 134 mmol/L (136-145) L 03/01/18 06:56 Potassium 4.9 mmol/L (3.5-5.1) 03/01/18 06:56 Chloride 104 mmol/L (98-107) 03/01/18 06:56 Carbon Dioxide 21.2 mmol/L (21.0-32.0) 03/01/18 06:56 Anion Gap 8.8 mmol/L (3-11) 03/01/18 06:56 BUN 46 mg/dL (7-18) H 03/01/18 06:56 Creatinine 4.51 mg/dL (0.70-1.30) H* 03/01/18 06:56 Estimated GFR/1.73 m2 13.31 (mL/min/1.73m2) 03/01/18 06:56 Glucose 96 mg/dL (70-100) 03/01/18 06:56 Lactate 0.7 mmol/L (0.6-1.4) 02/23/18 06:40 Calcium 8.7 mg/dL (8.5-10.1) 03/01/18 06:56 Magnesium 1.8 mg/dL (1.8-2.4) 02/26/18 05:53 Total Bilirubin 0.3 mg/dL (0.2-1.0) 02/22/18 12:35 AST 11 U/L (15-37) L 02/22/18 12:35 ALT 11 U/L (12-78) L 02/22/18 12:35 Alkaline Phosphatase 115 U/L (46-116) 02/22/18 12:35 Troponin I < 0.02 ng/mL (0.00-0.06) 02/22/18 12:35 Total Protein 7.4 g/dL (6.4-8.2) 02/22/18 12:35 Albumin 2.3 g/dL (3.4-5.0) L 02/22/18 12:35 Lipase 71 U/L (73-393) L 02/22/18 12:35 Urine Color Yellow (Yellow) 02/26/18 13:50 Urine Clarity Turbid 02/26/18 13:50 Urine pH 7.5 (5-8) 02/26/18 13:50 Ur Specific [place] 1.025 (1.005-1.025) 02/26/18 13:50 Urine Protein >=300 mg/dL (Negative) H 02/26/18 13:50 Urine Ketones Negative mg/dL (Negative) 02/26/18 13:50 Urine Blood Large (Negative) H 02/26/18 13:50 Urine Nitrite Negative (Negative) 02/26/18 13:50 Urine Bilirubin Negative (Negative) 02/26/18 13:50 Urine Urobilinogen 0.2 EU/dL (Up TO 0.2) 02/26/18 13:50 Ur Leukocyte Esterase Moderate (Negative) H 02/26/18 13:50 Urine RBC Not Applicable 02/26/18 13:50 Urine WBC HPF (0-5) 02/26/18 13:50 Ur Epithelial Cells Not Applicable 02/26/18 13:50 Urine Crystals Not Applicable 02/26/18 13:50 Urine Bacteria Not Applicable 02/26/18 13:50 Urine Mucus Not Applicable 02/26/18 13:50 Ur Culture Indicated? Yes 02/26/18 13:50 Urine Glucose Negative mg/dL (Negative) 02/26/18 13:50 Patient ABO/Rh O Positive 02/22/18 14:20 Antibody Screen Negative 02/22/18 14:20 Crossmatch See Detail 02/22/18 14:20 Reaction Clerical Check No clerical errors 02/23/18 06:40 Pre-Trans Blood Type O Positive 02/23/18 06:40 Pre-Trans Bld Appearanc No hemolysis/icterus 02/23/18 06:40 Pre-Trans BRITNEY Not Applicable 02/23/18 06:40 Post-Trans Blood Type O Positive 02/23/18 06:40 Post-Trans Spec Appear No hemolysis/icterus 02/23/18 06:40 Post-Trans BRITNEY Negative 02/23/18 06:40 Reaction Pathol Review Negative-complete 02/23/18 06:40
--- NOTE | 2018-03-01 12:47 | PGE_ITS ---
Assessment and Plan (1) Symptomatic anemia: Current visit: Yes Status: Acute S/p transfusion with total of 4 units of PRBC's. Heme negative stool noted. Anemia presumed secondary to persistent hematuria. Case discussed previously with Dr. Espitia of [facility] urology who recommended monitoring and transfusion as needed. Hemoglobin again stable. Continue to monitor. (2) Hematuria: Current visit: Yes Status: Acute Due to known bladder mass. Patient refuses catheterization. Potential for palliative radiation prior to planned surgery (palliative Cystectomy). Currently with improved symptoms and stable hemoglobin. (3) Bladder cancer: Current visit: Yes Status: Chronic Metastatic to lung. Patient would still like aggressive care and is full code. Scheduled for palliative cystectomy at [facility] - however, would benefit from transfer to [facility] sooner than his scheduled procedure if continued or worsening bleeding. Per Palliative care instructions will initiate low dose fentanyl patch today, continue oxy on prn basis, and titrate as needed. Bowel Regimen instituted as well. (4) Chronic kidney disease, stage 5: Current visit: Yes Status: Chronic Cr initially improved after flushing nephrostomy tubes. Left Nephrostomy with chronically lower output that right. Tubes were flushed again yesterday. Continue to monitor, avoid nephrotoxins, and renally dose medications when appropriate. (5) Enteritis: Current visit: Yes Status: Acute CT at time of admission with bowel wall thickening and loops of jejunum within the LUQ suspicious for an enteritis. Patient reports bouts of diarrhea at home prior to coming to the hospital, and now with continued postprandial vomiting. Hemoccult negative. PPI switched to IV. Check KUB today, anti-emetics , and dietary modifications. Continue to monitor symptoms. (6) UTI (urinary tract infection): Current visit: Yes Status: Acute Due to Proteus Hauseri, sensitive to both Levaquin and Ceftriaxone. Continue Fluoroquinolone therapy, renally dosed, currently day #6. Repeat Cx with both proteus and pseudomonas, both <100,000 cfu/ml - continue current management which should cover pseudomonas species as well. (7) CHF (congestive heart failure): Current visit: Yes Status: Chronic LVEF 35-40% with diffuse hypokinesis and regional variations on ECHO from 12/2017. Currently appears euvolemic, weight stable. Continue BB and statin therapy and monitor volume status closely. Check daily weights. IVF's discontinued. (8) DVT prophylaxis: Current visit: Yes Status: Acute Hold on anticoagulation secondary to active hematuria with significant transfusion requiring anemia. Ensure SCDs in place. Subjective Interval history since last seen: 62 year old man with PMHx significant for bladder cancer with obstructive uropathy, s/p bilateral nephrostomy tubes, CKD stage 5 (not on dialysis), chronic hematuria with subsequent anemia, Chronic systolic CHF wih EF 35% admitted from [facility] ED on 02/23/2018 with evidence of enteritis by CT, and anemia by labwork. Mr. Rosas initially reported continuous hematuria, and that his nephrostomy tubes have not had any output since 2 days prior to his admission. He also reported fevers/chills at home. Subsequent Urinalysis showed evidence of a UTI, with cultures showing growth of Proteus Hauseri, and repeat cultures grew <100, 000 colonies/ml of both Proteus and Pseudomonas - currently maintained on renally dosed Levofloxacin. The patient was also noted to be anemic with a Hgb of 6.4, and was transfused with PRBCs. He was also found to have evidence of enteritis on CT. Although he reported improved symptoms yesterday, he states continued episodes of postprandial vomiting. The patient is planning to undergo bladder surgery at [facility] [place] on March 15. This morning's Hemoglobin appears stable. Patient states that he feels vastly improved since time of admission, and states decreased volume of hematuria, but with increased frequency. No other events reported overnight. Patient remains afebrile. Exam Narrative Exam Narrative: General: Cachectic and ill appearing but in NAD. Skin: Pallor noted. Neck: Supple. CV: Regular. No overt Rubs, Murmurs, or Gallops. Lungs: CTAB Abdomen: soft, nondistended, mild LLQ/RLQ tenderness : Bilateral nephrostomy tubes in place; R with clear-yellow output; L with continued cloudy output Extremities: Trace b/l LE Edema. Objective Objective Clinical Data: Abnormal lab results 03/01/18 03/01/18 Range/Units 06:56 06:56 RBC 2.98 L (4.50-6.00) m/cumm Hgb 8.5 L (13.5-17.5) g/dL Hct 26.8 L (40.0-50.0) % MCHC 31.7 L (32.0-36.0) g/dL RDW 16.4 H (11.8-14.1) % Plt Count 532 H (130-400) x1000/uL Absolute Neutrophils 7.22 H (1.2-6.7) k/cumm Absolute Monocytes 1.17 H (0.11-0.7) k/cumm Sodium 134 L (136-145) mmol/L BUN 46 H (7-18) mg/dL Creatinine 4.51 H* (0.70-1.30) mg/dL Vital Signs Temperature 37.0 C 03/01/18 11:22 Temperature Source Skin 03/01/18 11:22 Pulse 80 03/01/18 11:22 Pulse Rhythm Regular 03/01/18 11:07 Pulse 93 H 02/23/18 17:30 Respiratory Rate 18 03/01/18 11:22 Respiratory Effort 03/01/18 11:07 Respiratory Depth Normal 03/01/18 11:07 Respiratory Pattern Normal 03/01/18 11:07 Blood Pressure 116/73 03/01/18 11:22 Blood Pressure Mean 91 02/23/18 17:21 Blood Pressure Position Supine 02/22/18 23:00 Pulse Oximetry 94 L 03/01/18 11:22 Oxygen Delivery Method Room Air 03/01/18 11:22 Oxygen Flow Rate 0 03/01/18 11:22 Pain Level 3 03/01/18 08:00 Comment 02/26/18 03:45 Intake & Output 02/28/18 03/01/18 03/01/18 23:59 11:59 23:59 Intake Total 530 / 530 710 / 710 Output Total 450 / 450 1475 / 1475 Balance 80 / 80 -765 / -765 Weight 56.4 kg Intake: IV 50 / 50 Oral 480 / 480 710 / 710 Output: Drainage 1475 / 1475 Left Posterior Back 100 / 100 Right Posterior Back 1375 / 1375 Urine 450 / 450 Other: Urine Color Dark Red Yellow [place] Urine Appearance Hematuria Clear Urine Odor Normal Stool Size Smear Stool Characteristics Hard Voiding Methods Urinal Toilet Laboratory Results WBC 10.54 k/cumm (4.4-10.8) 03/01/18 06:56 RBC 2.98 m/cumm (4.50-6.00) L 03/01/18 06:56 Hgb 8.5 g/dL (13.5-17.5) L 03/01/18 06:56 Hct 26.8 % (40.0-50.0) L 03/01/18 06:56 MCV 89.9 fL (80-95) 03/01/18 06:56 MCH 28.5 pg (27.0-33.0) 03/01/18 06:56 MCHC 31.7 g/dL (32.0-36.0) L 03/01/18 06:56 RDW 16.4 % (11.8-14.1) H 03/01/18 06:56 Plt Count 532 x1000/uL (130-400) H 03/01/18 06:56 MPV 8.9 fL (8.0-11.0) 03/01/18 06:56 Immature Gran % 0.3 03/01/18 06:56 Neutrophils % 68.4 03/01/18 06:56 Lymphocytes % 13.2 03/01/18 06:56 Monocytes % 11.1 03/01/18 06:56 Eosinophils % 6.5 03/01/18 06:56 Basophils % 0.5 03/01/18 06:56 Absolute Neutrophils 7.22 k/cumm (1.2-6.7) H 03/01/18 06:56 Absolute Lymphocytes 1.39 k/cumm (1.2-3.4) 03/01/18 06:56 Absolute Monocytes 1.17 k/cumm (0.11-0.7) H 03/01/18 06:56 Absolute Eosinophils 0.68 k/cumm (0.0-0.7) 03/01/18 06:56 Absolute Basophils 0.05 k/cumm (0.0-0.2) 03/01/18 06:56 Differential Comment Diff reviewed 02/22/18 12:35 RBC Morphology See below 02/22/18 12:35 Polychromasia Present 02/22/18 12:35 Hypochromasia 1+ 02/22/18 12:35 Poikilocytosis 2+ 02/22/18 12:35 Anisocytosis 1+ 02/22/18 12:35 Sodium 134 mmol/L (136-145) L 03/01/18 06:56 Potassium 4.9 mmol/L (3.5-5.1) 03/01/18 06:56 Chloride 104 mmol/L (98-107) 03/01/18 06:56 Carbon Dioxide 21.2 mmol/L (21.0-32.0) 03/01/18 06:56 Anion Gap 8.8 mmol/L (3-11) 03/01/18 06:56 BUN 46 mg/dL (7-18) H 03/01/18 06:56 Creatinine 4.51 mg/dL (0.70-1.30) H* 03/01/18 06:56 Estimated GFR/1.73 m2 13.31 (mL/min/1.73m2) 03/01/18 06:56 Glucose 96 mg/dL (70-100) 03/01/18 06:56 Lactate 0.7 mmol/L (0.6-1.4) 02/23/18 06:40 Calcium 8.7 mg/dL (8.5-10.1) 03/01/18 06:56 Magnesium 1.8 mg/dL (1.8-2.4) 02/26/18 05:53 Total Bilirubin 0.3 mg/dL (0.2-1.0) 02/22/18 12:35 AST 11 U/L (15-37) L 02/22/18 12:35 ALT 11 U/L (12-78) L 02/22/18 12:35 Alkaline Phosphatase 115 U/L (46-116) 02/22/18 12:35 Troponin I < 0.02 ng/mL (0.00-0.06) 02/22/18 12:35 Total Protein 7.4 g/dL (6.4-8.2) 02/22/18 12:35 Albumin 2.3 g/dL (3.4-5.0) L 02/22/18 12:35 Lipase 71 U/L (73-393) L 02/22/18 12:35 Urine Color Yellow (Yellow) 02/26/18 13:50 Urine Clarity Turbid 02/26/18 13:50 Urine pH 7.5 (5-8) 02/26/18 13:50 Ur Specific [place] 1.025 (1.005-1.025) 02/26/18 13:50 Urine Protein >=300 mg/dL (Negative) H 02/26/18 13:50 Urine Ketones Negative mg/dL (Negative) 02/26/18 13:50 Urine Blood Large (Negative) H 02/26/18 13:50 Urine Nitrite Negative (Negative) 02/26/18 13:50 Urine Bilirubin Negative (Negative) 02/26/18 13:50 Urine Urobilinogen 0.2 EU/dL (Up TO 0.2) 02/26/18 13:50 Ur Leukocyte Esterase Moderate (Negative) H 02/26/18 13:50 Urine RBC Not Applicable 02/26/18 13:50 Urine WBC HPF (0-5) 02/26/18 13:50 Ur Epithelial Cells Not Applicable 02/26/18 13:50 Urine Crystals Not Applicable 02/26/18 13:50 Urine Bacteria Not Applicable 02/26/18 13:50 Urine Mucus Not Applicable 02/26/18 13:50 Ur Culture Indicated? Yes 02/26/18 13:50 Urine Glucose Negative mg/dL (Negative) 02/26/18 13:50 Patient ABO/Rh O Positive 02/22/18 14:20 Antibody Screen Negative 02/22/18 14:20 Crossmatch See Detail 02/22/18 14:20 Reaction Clerical Check No clerical errors 02/23/18 06:40 Pre-Trans Blood Type O Positive 02/23/18 06:40 Pre-Trans Bld Appearanc No hemolysis/icterus 02/23/18 06:40 Pre-Trans BRITNEY Not Applicable 02/23/18 06:40 Post-Trans Blood Type O Positive 02/23/18 06:40 Post-Trans Spec Appear No hemolysis/icterus 02/23/18 06:40 Post-Trans BRITNEY Negative 02/23/18 06:40 Reaction Pathol Review Negative-complete 02/23/18 06:40
--- NOTE | 2018-03-01 13:09 | DI.RAD_ITS ---
SYMPTOM/DIAGNOSIS: PERSISTENT NAUSEA, VOMITING KUB AND UPRIGHT: Bilateral nephrostomy tubes are demonstrated and are in stable position when compared with a prior CT. There is no evidence of bowel obstruction, gross organomegaly or a localized intra-abdominal or pelvic mass. Note is made of a considerable quantity of fecal material in the ascending and transverse colonic segments consistent with constipation. SUMMARY: No acute abnormality is demonstrated.
--- NOTE | 2018-03-01 13:55 | PDOC.CMPRO ---
- If Service Date Differs Date of service: 03/01/18 Time of Service: 13:55 Care Management Progress Note S/O: Cornelio was lying in bed when SCOTTIE and Dr. Roberson visited with him this morning. He is engaged in conversation, makes good eye contact and is talkative. Discharge was initially anticipated for today, however Cornelio has been unable to keep anything down; vomiting after all meals reportedly for three days. He has not had a BM in two days and reports he has abdominal discomfort. Patient, Dr. Roberson and SCOTTIE discussed pain medications and switching Cornelio to a patch vs oral medications to alleviate constipation. Cornelio reports he has been nauseous for days and PRN antiemetics have not helped. Dr. Roberson will consult with hospitalist regarding scheduled meds. Cornelio reportedly has an appointment on 03/02 at 1415 so will need to discharge early in the day. MD is aware and will plan accordingly. A: 62 y/o male admitted 02/23/18 for dehydration P: Cornelio will discharge when medically ready per MD. Anticipate patient will discharge home with resumption of home health services and follow up with his PCP. Cornelio will transport via private vehicle with his ex-, Brittany. SCOTTIE will continue to offer support to patient and care team regarding discharge planning and disposition.
[2018-03-01 16:09] VITALS: BP 145/82; PULSE 77; RESP 18; TEMP 37.1; O2SAT 97
[2018-03-01 19:41] VITALS: BP 156/87; PULSE 81; RESP 19; TEMP 36.6; O2SAT 97
[2018-03-01] MEDS: Senna TAB 2 TAB PO (21:03)
[2018-03-01] MEDS: Atorvastatin 40 MG TAB 80 MG PO (21:03)
[2018-03-02 07:19] LABS: Abs Immature Grans 0.04 k/cumm (0.0-0.09); Absolute Basophil Count 0.04 k/cumm (0.0-0.2); Absolute Eosinophil Count 0.64 k/cumm (0.0-0.7); Absolute Lymphocyte Count 1.33 k/cumm (1.2-3.4); Absolute Monocyte Count 0.98 k/cumm (0.11-0.7); Absolute Neutrophil Count 5.21 k/cumm (1.2-6.7); Basophils % 0.5; Eosinophils % 7.8; HCT 27.1 % (40.0-50.0); HGB 8.6 g/dL (13.5-17.5); Immature Grans % 0.5; Lymphocytes % 16.1; Mean Corp. HGB Concentration 31.7 g/dL (32.0-36.0); Mean Corpuscular Hemoglobin 28.4 pg (27.0-33.0); Mean Corpuscular Volume 89.4 fL (80-95); Mean Platelet Volume 8.5 fL (8.0-11.0); Monocytes % 11.9; Neutrophils % 63.2; Platelet Count 596 x1000/uL (130-400); RBC 3.03 m/cumm (4.50-6.00); RBC Distribution Width 15.9 % (11.8-14.1); White Blood Cell Count 8.24 k/cumm (4.4-10.8)
[2018-03-02 07:39] LABS: Anion Gap 8.9 mmol/L (3-11); BUN 43 mg/dL (7-18); CO2 22.1 mmol/L (21.0-32.0); Calcium 8.5 mg/dL (8.5-10.1); Chloride 106 mmol/L (98-107); Estimated GFR 12.98 (mL/min/1.73m2); Glucose 84 mg/dL (70-100); Potassium 4.6 mmol/L (3.5-5.1); Sodium 137 mmol/L (136-145)
[2018-03-02 07:45] VITALS: BP 135/98; PULSE 100; RESP 17; TEMP 36.4; O2SAT 98
[2018-03-02 07:52] LABS: CREATININE 4.61 mg/dL (0.70-1.30)
[2018-03-02] MEDS: Nicotine 14 MG/24 HR PATCH TD (08:24)
[2018-03-02] MEDS: Polyethylene Glycol 3350 17 GM PACKET PO (08:24)
[2018-03-02] MEDS: Pantoprazole 40 MG VIAL IVP (08:25)
[2018-03-02] MEDS: Carvedilol 3.125 MG TAB PO ×2 (08:26→21:30)
[2018-03-02] MEDS: Normal Saline Flush 10 ML SYR IVP (08:26)
[2018-03-02] MEDS: Docusate Sodium 100 MG CAP PO ×3 (08:26→21:30)
[2018-03-02] MEDS: LEVOFLOXACIN 250 MG/50 ML BAG 50 MG IVPB (10:17)
[2018-03-02 11:35] VITALS: BP 129/83; PULSE 79; RESP 17; TEMP 36.5; O2SAT 98
--- NOTE | 2018-03-02 14:06 | PDOC.CMPRO ---
- If Service Date Differs Date of service: 03/02/18 Time of Service: 14:06 Care Management Progress Note S/O: Cornelio was lying in bed when CM and Dr. Roberson visited with him this morning. He is engaged in conversation, makes good eye contact and is talkative. Cornelio reports that he had a very small bowel movement that was not worth writing home about. His diet has been advanced to include pudding. He is nauseous but has not vomited today. It had been anticipated that Cornelio would discharge home today, however due to his continued constipation and nausea/vomiting, he will remain acute at this time. Cornelio's ex , Brittany, will reschedule his appointment for today at [facility]. A: 62 y/o male admitted 02/23/18 for dehydration P: Cornelio will discharge when medically ready per MD. Anticipate patient will discharge home with resumption of home health services and follow up with his PCP. Cornelio will transport via private vehicle with his ex-, rBittany. SCOTTIE will continue to offer support to patient and care team regarding discharge planning and disposition.
--- NOTE | 2018-03-02 14:13 | CMPROGNOTE_ITS ---
- If Service Date Differs Date of service: 03/02/18 Time of Service: 14:06 Care Management Progress Note S/O: Cornelio was lying in bed when CM and Dr. Roberson visited with him this morning. He is engaged in conversation, makes good eye contact and is talkative. Cornelio reports that he had a very small bowel movement that was not worth writing home about. His diet has been advanced to include pudding. He is nauseous but has not vomited today. It had been anticipated that Cornelio would discharge home today, however due to his continued constipation and nausea/ vomiting, he will remain acute at this time. Cornelio's ex , Brittany, will reschedule his appointment for today at [facility]. A: 62 y/o male admitted 02/23/18 for dehydration P: Cornelio will discharge when medically ready per MD. Anticipate patient will discharge home with resumption of home health services and follow up with his PCP. Cornelio will transport via private vehicle with his ex-, Brittany. SCOTTIE will continue to offer support to patient and care team regarding discharge planning and disposition.
--- NOTE | 2018-03-02 15:50 | W.PM.PROGNOT ---
Assessment and Plan (1) Symptomatic anemia: Current visit: Yes Status: Acute S/p transfusion with total of 4 units of PRBC's. Heme negative stool noted. Anemia presumed secondary to persistent hematuria. Case discussed previously with Dr. Espitia of [facility] urology who recommended monitoring and transfusion as needed. Hemoglobin again stable. Continue to monitor. (2) Hematuria: Current visit: Yes Status: Acute Due to known bladder mass. Patient refuses catheterization. Potential for palliative radiation prior to planned surgery (palliative Cystectomy). Currently with improved symptoms and stable hemoglobin. (3) Bladder cancer: Current visit: Yes Status: Chronic Metastatic to lung. Patient would still like aggressive care and is full code. Scheduled for palliative cystectomy at [facility] - however, would benefit from transfer to [facility] sooner than his scheduled procedure if continued or worsening bleeding. Per Palliative care instructions initiated low dose fentanyl patch. Will continue oxy on prn basis, and titrate as needed. Bowel Regimen instituted as well. (4) Chronic kidney disease, stage 5: Current visit: Yes Status: Chronic Cr initially improved after flushing nephrostomy tubes. Left Nephrostomy with chronically lower output that right. Tubes were flushed again previously. Continue to monitor, avoid nephrotoxins, and renally dose medications when appropriate. (5) Enteritis: Current visit: Yes Status: Acute CT at time of admission with bowel wall thickening and loops of jejunum within the LUQ suspicious for an enteritis. Patient reports bouts of diarrhea at home prior to coming to the hospital, and now with continued postprandial vomiting. Hemoccult negative. PPI switched to IV. KUB with constipation - recommend treatment of constipation, anti-emetics, and dietary modifications, and reevaluation. Continue to monitor symptoms. (6) Constipation: Current visit: Yes Status: Acute Standing Senna, Colace, Miralax ineffective. Patient on chronic opiates. Start Lactulose and reevaluate. (7) UTI (urinary tract infection): Current visit: Yes Status: Acute Due to Proteus Hauseri, sensitive to both Levaquin and Ceftriaxone. Continue Fluoroquinolone therapy, renally dosed, currently day #7. Repeat Cx with both proteus and pseudomonas, both <100,000 cfu/ml - continue current management which should cover pseudomonas species as well. (8) CHF (congestive heart failure): Current visit: Yes Status: Chronic LVEF 35-40% with diffuse hypokinesis and regional variations on ECHO from 12/2017. Currently appears euvolemic, weight stable. Continue BB and statin therapy and monitor volume status closely. Check daily weights. IVF's discontinued. (9) DVT prophylaxis: Current visit: Yes Status: Acute Hold on anticoagulation secondary to active hematuria with significant transfusion requiring anemia. Ensure SCDs in place. Subjective Interval history since last seen: 62 year old man with PMHx significant for bladder cancer with obstructive uropathy, s/p bilateral nephrostomy tubes, CKD stage 5 (not on dialysis), chronic hematuria with subsequent anemia, Chronic systolic CHF wih EF 35% admitted from [facility] ED on 02/23/2018 with evidence of enteritis by CT, and anemia by labwork. Mr. Rosas initially reported continuous hematuria, and that his nephrostomy tubes have not had any output since 2 days prior to his admission. He also reported fevers/chills at home. Subsequent Urinalysis showed evidence of a UTI, with cultures showing growth of Proteus Hauseri, and repeat cultures grew <100,000 colonies/ml of both Proteus and Pseudomonas - currently maintained on renally dosed Levofloxacin. The patient was also noted to be anemic with a Hgb of 6.4, and was transfused with PRBCs. He was also found to have evidence of enteritis on CT. Although he reported improved symptoms previously, he states continued episodes of postprandial vomiting. Imaging of his abdomen shows evidence of constipation. The patient is planning to undergo bladder surgery at [facility] on March 15. This morning's Hemoglobin appears stable. Patient states that he feels vastly improved since time of admission, and states decreased volume of hematuria, but with increased frequency. No other events reported overnight. Patient remains afebrile. Exam Narrative Exam Narrative: General: Cachectic and ill appearing but in NAD. Skin: Pallor noted. Neck: Supple. CV: Regular. No overt Rubs, Murmurs, or Gallops. Lungs: CTAB Abdomen: soft, nondistended, mild LLQ/RLQ tenderness : Bilateral nephrostomy tubes in place; R with clear-yellow output; L with continued cloudy output Extremities: Trace b/l LE Edema. Objective Objective Clinical Data: Abnormal lab results 03/02/18 03/02/18 Range/Units 07:00 07:00 RBC 3.03 L (4.50-6.00) m/cumm Hgb 8.6 L (13.5-17.5) g/dL Hct 27.1 L (40.0-50.0) % MCHC 31.7 L (32.0-36.0) g/dL RDW 15.9 H (11.8-14.1) % Plt Count 596 H (130-400) x1000/uL Absolute Monocytes 0.98 H (0.11-0.7) k/cumm BUN 43 H (7-18) mg/dL Creatinine 4.61 H* (0.70-1.30) mg/dL Vital Signs Temperature 36.5 C 03/02/18 11:35 Temperature Source Tympanic 03/02/18 11:35 Pulse 79 03/02/18 11:35 Pulse Rhythm Regular 03/02/18 07:45 Pulse 93 H 02/23/18 17:30 Respiratory Rate 17 03/02/18 11:35 Respiratory Effort Non-Labored 03/02/18 07:45 Respiratory Depth Normal 03/02/18 07:45 Respiratory Pattern Normal 03/02/18 07:45 Blood Pressure 129/83 03/02/18 11:35 Blood Pressure Mean 91 02/23/18 17:21 Blood Pressure Position Supine 02/22/18 23:00 Pulse Oximetry 98 03/02/18 11:35 Oxygen Delivery Method Room Air 03/02/18 11:35 Oxygen Flow Rate 0 03/02/18 11:35 Pain Level 2 03/02/18 11:35 Comment 02/26/18 03:45 Intake & Output 03/01/18 03/02/18 03/02/18 23:59 11:59 23:59 Intake Total 830 / 830 360 / 360 Output Total 925 / 925 5 / 2024 600 / 600 Balance -925 / -925 -1195 / -1195 -240 / -240 Intake: IV 70 / 70 Oral 760 / 760 360 / 360 Output: Drainage 475 / 475 1000 / 1000 600 / 600 Left Posterior Back 25 / 25 50 / 50 Right Posterior Back 450 / 450 1000 / 1000 550 / 550 Urine 450 / 450 1025 / 1025 Other: Urine Color Yellow Webb Urine Appearance Hematuria Clear Hematuria Clots Urine Odor Normal None Comment Void x1 in the toilet. Briefs were changed. Stool Size Small Stool Characteristics Formed Hard Brown Voiding Methods Ileal Conduit (Right) Toilet Laboratory Results WBC 8.24 k/cumm (4.4-10.8) 03/02/18 07:00 RBC 3.03 m/cumm (4.50-6.00) L 03/02/18 07:00 Hgb 8.6 g/dL (13.5-17.5) L 03/02/18 07:00 Hct 27.1 % (40.0-50.0) L 03/02/18 07:00 MCV 89.4 fL (80-95) 03/02/18 07:00 MCH 28.4 pg (27.0-33.0) 03/02/18 07:00 MCHC 31.7 g/dL (32.0-36.0) L 03/02/18 07:00 RDW 15.9 % (11.8-14.1) H 03/02/18 07:00 Plt Count 596 x1000/uL (130-400) H 03/02/18 07:00 MPV 8.5 fL (8.0-11.0) 03/02/18 07:00 Immature Gran % 0.5 03/02/18 07:00 Neutrophils % 63.2 03/02/18 07:00 Lymphocytes % 16.1 03/02/18 07:00 Monocytes % 11.9 03/02/18 07:00 Eosinophils % 7.8 03/02/18 07:00 Basophils % 0.5 03/02/18 07:00 Absolute Neutrophils 5.21 k/cumm (1.2-6.7) 03/02/18 07:00 Absolute Lymphocytes 1.33 k/cumm (1.2-3.4) 03/02/18 07:00 Absolute Monocytes 0.98 k/cumm (0.11-0.7) H 03/02/18 07:00 Absolute Eosinophils 0.64 k/cumm (0.0-0.7) 03/02/18 07:00 Absolute Basophils 0.04 k/cumm (0.0-0.2) 03/02/18 07:00 Differential Comment Diff reviewed 02/22/18 12:35 RBC Morphology See below 02/22/18 12:35 Polychromasia Present 02/22/18 12:35 Hypochromasia 1+ 02/22/18 12:35 Poikilocytosis 2+ 02/22/18 12:35 Anisocytosis 1+ 02/22/18 12:35 Sodium 137 mmol/L (136-145) 03/02/18 07:00 Potassium 4.6 mmol/L (3.5-5.1) 03/02/18 07:00 Chloride 106 mmol/L (98-107) 03/02/18 07:00 Carbon Dioxide 22.1 mmol/L (21.0-32.0) 03/02/18 07:00 Anion Gap 8.9 mmol/L (3-11) 03/02/18 07:00 BUN 43 mg/dL (7-18) H 03/02/18 07:00 Creatinine 4.61 mg/dL (0.70-1.30) H* 03/02/18 07:00 Estimated GFR/1.73 m2 12.98 (mL/min/1.73m2) 03/02/18 07:00 Glucose 84 mg/dL (70-100) 03/02/18 07:00 Lactate 0.7 mmol/L (0.6-1.4) 02/23/18 06:40 Calcium 8.5 mg/dL (8.5-10.1) 03/02/18 07:00 Magnesium 1.8 mg/dL (1.8-2.4) 02/26/18 05:53 Total Bilirubin 0.3 mg/dL (0.2-1.0) 02/22/18 12:35 AST 11 U/L (15-37) L 02/22/18 12:35 ALT 11 U/L (12-78) L 02/22/18 12:35 Alkaline Phosphatase 115 U/L (46-116) 02/22/18 12:35 Troponin I < 0.02 ng/mL (0.00-0.06) 02/22/18 12:35 Total Protein 7.4 g/dL (6.4-8.2) 02/22/18 12:35 Albumin 2.3 g/dL (3.4-5.0) L 02/22/18 12:35 Lipase 71 U/L (73-393) L 02/22/18 12:35 Urine Color Yellow (Yellow) 02/26/18 13:50 Urine Clarity Turbid 02/26/18 13:50 Urine pH 7.5 (5-8) 02/26/18 13:50 Ur Specific [place] 1.025 (1.005-1.025) 02/26/18 13:50 Urine Protein >=300 mg/dL (Negative) H 02/26/18 13:50 Urine Ketones Negative mg/dL (Negative) 02/26/18 13:50 Urine Blood Large (Negative) H 02/26/18 13:50 Urine Nitrite Negative (Negative) 02/26/18 13:50 Urine Bilirubin Negative (Negative) 02/26/18 13:50 Urine Urobilinogen 0.2 EU/dL (Up TO 0.2) 02/26/18 13:50 Ur Leukocyte Esterase Moderate (Negative) H 02/26/18 13:50 Urine RBC Not Applicable 02/26/18 13:50 Urine WBC HPF (0-5) 02/26/18 13:50 Ur Epithelial Cells Not Applicable 02/26/18 13:50 Urine Crystals Not Applicable 02/26/18 13:50 Urine Bacteria Not Applicable 02/26/18 13:50 Urine Mucus Not Applicable 02/26/18 13:50 Ur Culture Indicated? Yes 02/26/18 13:50 Urine Glucose Negative mg/dL (Negative) 02/26/18 13:50 Patient ABO/Rh O Positive 02/22/18 14:20 Antibody Screen Negative 02/22/18 14:20 Crossmatch See Detail 02/22/18 14:20 Reaction Clerical Check No clerical errors 02/23/18 06:40 Pre-Trans Blood Type O Positive 02/23/18 06:40 Pre-Trans Bld Appearanc No hemolysis/icterus 02/23/18 06:40 Pre-Trans BRITNEY Not Applicable 02/23/18 06:40 Post-Trans Blood Type O Positive 02/23/18 06:40 Post-Trans Spec Appear No hemolysis/icterus 02/23/18 06:40 Post-Trans BRITNEY Negative 02/23/18 06:40 Reaction Pathol Review Negative-complete 02/23/18 06:40 Objective Narrative Objective Narrative: Exam(s) a RAD:XR abdomen flat & upright SYMPTOM/DIAGNOSIS: PERSISTENT NAUSEA, VOMITING KUB AND UPRIGHT: Bilateral nephrostomy tubes are demonstrated and are in stable position when compared with a prior CT. There is no evidence of bowel obstruction, gross organomegaly or a localized intra-abdominal or pelvic mass. Note is made of a considerable quantity of fecal material in the ascending and transverse colonic segments consistent with constipation. SUMMARY: No acute abnormality is demonstrated.
[2018-03-02] MEDS: Lactulose 20 GM/30 ML CUP PO (16:26)
[2018-03-02 17:03] VITALS: BP 128/84; PULSE 82; RESP 19; TEMP 36.9; O2SAT 97
[2018-03-02 19:20] VITALS: BP 128/82; PULSE 85; RESP 19; TEMP 37.1; O2SAT 96
[2018-03-02] MEDS: Senna TAB 2 TAB PO (21:30)
[2018-03-02] MEDS: Atorvastatin 40 MG TAB 80 MG PO (21:30)
[2018-03-02] MEDS: oxyCODONE 5 MG TAB 10 MG PO (21:38)
[2018-03-02] MEDS: Methylnaltrexone 12 MG/0.6 ML VIAL SC (22:20)
[2018-03-02 23:22] VITALS: BP 130/100; PULSE 96; RESP 16; TEMP 36.7; O2SAT 97
[2018-03-03] MEDS: oxyCODONE 5 MG TAB 10 MG PO ×5 (04:19→21:20)
[2018-03-03 04:22] VITALS: BP 140/87; PULSE 96; RESP 16; TEMP 36.6; O2SAT 98
[2018-03-03 07:03] LABS: Abs Immature Grans 0.02 k/cumm (0.0-0.09); Absolute Basophil Count 0.07 k/cumm (0.0-0.2); Absolute Lymphocyte Count 1.24 k/cumm (1.2-3.4); Absolute Monocyte Count 1.03 k/cumm (0.11-0.7); Absolute Neutrophil Count 5.79 k/cumm (1.2-6.7); Basophils % 0.8; Eosinophils % 5.8; HCT 27.3 % (40.0-50.0); HGB 8.7 g/dL (13.5-17.5); Immature Grans % 0.2; Lymphocytes % 14.3; Mean Corp. HGB Concentration 31.9 g/dL (32.0-36.0); Mean Corpuscular Hemoglobin 28.2 pg (27.0-33.0); Mean Corpuscular Volume 88.3 fL (80-95); Mean Platelet Volume 8.8 fL (8.0-11.0); Monocytes % 11.9; Platelet Count 624 x1000/uL (130-400); RBC 3.09 m/cumm (4.50-6.00); White Blood Cell Count 8.65 k/cumm (4.4-10.8)
[2018-03-03 07:17] LABS: Anion Gap 11.1 mmol/L (3-11); BUN 41 mg/dL (7-18); CO2 20.9 mmol/L (21.0-32.0); Calcium 8.9 mg/dL (8.5-10.1); Chloride 104 mmol/L (98-107); Estimated GFR 13.56 (mL/min/1.73m2); Glucose 95 mg/dL (70-100); Potassium 4.2 mmol/L (3.5-5.1); Sodium 136 mmol/L (136-145)
[2018-03-03 07:20] LABS: CREATININE 4.44 mg/dL (0.70-1.30)
[2018-03-03 07:55] VITALS: BP 125/86; PULSE 90; RESP 18; TEMP 36.8; O2SAT 96
[2018-03-03] MEDS: Carvedilol 3.125 MG TAB PO ×2 (08:22→21:20)
[2018-03-03] MEDS: Docusate Sodium 100 MG CAP PO ×3 (08:22→21:20)
[2018-03-03] MEDS: Nicotine 14 MG/24 HR PATCH TD (08:22)
[2018-03-03] MEDS: Pantoprazole 40 MG VIAL IVP (08:23)
[2018-03-03] MEDS: Normal Saline Flush 10 ML SYR IVP ×2 (08:24→15:35)
[2018-03-03] MEDS: Ondansetron O.D.T. 4 MG TABEF PO (09:58)
[2018-03-03 11:32] VITALS: BP 120/77; PULSE 88; RESP 17; TEMP 36.8; O2SAT 96
--- NOTE | 2018-03-03 12:14 | PDOC.CMPRO ---
- If Service Date Differs Date of service: 03/03/18 Time of Service: 12:14 Care Management Progress Note S/O: Cornelio is sitting up in the bed when CM arrives. Patient reports that he was unable to keep his breakfast down. He states he does not have nausea prior to vomiting it just comes back up. Anticipate Cornelio will be discharged this week pending his ability to tolerate oral intake. He did have a bowel movement x 2. CM to continue to provide support. A: 62 y/o male admitted 02/23/18 for dehydration P: Cornelio will discharge when medically ready per MD. Anticipate patient will discharge home with resumption of home health services and follow up with his PCP. Cornelio will transport via private vehicle with his ex-, Brittany. CM will continue to offer support to patient and care team regarding discharge planning and disposition.
--- NOTE | 2018-03-03 14:17 | DI.CT_ITS ---
SYMPTOMS/DIAGNOSIS: PERSISTENT VOMITING, DEHYDRATION CT EXAMINATION OF THE ABDOMEN AND PELVIS: The study was carried out without contrast enhancement and is compared with a prior study of 02/22. No acute abnormality involving the lung bases is identified. The liver is enlarged and again noted are multiple rounded areas of radiolucencies, presumably representing cysts. The pancreas is intact. Splenic granulomata are identified. There is no evidence of a mass. The nephrostomy tubes appear to be in good position with interval decompression of the right and left hydronephrotic changes noted on the prior examination. A mildly dilated fluid-filled stomach is identified and allowing for the absence of contrast material, there are mildly dilated small bowel loops throughout the abdomen. There is scattered fecal material and gas in the colon. There is nothing to suggest a localized inflammatory process or bowel wall mass. When compared with the previous examination, again noted is the huge bladder mass, unchanged. There is no evidence of free air or free fluid in the abdomen or pelvis. There is atherosclerotic change involving the aorta without evidence of an aneurysm; degenerative changes involving the lumbar spine are again seen. SUMMARY: Interval decompression of the kidneys is noted, nephrostomy tubes in place. The stomach is moderately dilated and fluid-filled, mildly dilated loops of small bowel are identified. There has been no definite interval change when compared with the previous examination with note again made of a large bladder mass.
--- NOTE | 2018-03-03 16:27 | CHAPLAIN ---
Cornelio was polite, but seemed hesitant to have a conversation. He responded to some questions, but did not seem interested in further conversation. He said he doesn't anticipate any family or friends visiting, although there were cordon in the room.
[2018-03-03 16:28] VITALS: BP 154/95; PULSE 88; RESP 19; TEMP 36.9; O2SAT 98
--- NOTE | 2018-03-03 18:14 | W.PM.PROGNOT ---
Assessment and Plan (1) Symptomatic anemia: Current visit: Yes Status: Acute S/p transfusion with total of 4 units of PRBC's. Heme negative stool noted. Anemia presumed secondary to persistent hematuria. Case discussed previously with Dr. Espitia of [facility] [place]rology who recommended monitoring and transfusion as needed. Hemoglobin again stable. Continue to monitor. (2) Hematuria: Current visit: Yes Status: Acute Due to known bladder mass. Patient refuses catheterization. Potential for palliative radiation prior to planned surgery (palliative Cystectomy). Currently with improved symptoms and stable hemoglobin. (3) Bladder cancer: Current visit: Yes Status: Chronic Metastatic to lung. Patient would still like aggressive care and is full code. Scheduled for palliative cystectomy at [facility]. Per Palliative care instructions initiated low dose fentanyl patch. Will continue oxy on prn basis, and titrate as needed. Bowel Regimen instituted as well. (4) Chronic kidney disease, stage 5: Current visit: Yes Status: Chronic Cr initially improved after flushing nephrostomy tubes. Left Nephrostomy with chronically lower output that right. Tubes were flushed again previously. Continue to monitor, avoid nephrotoxins, and renally dose medications when appropriate. Current renal function is at baseline and stable. (5) Enteritis: Current visit: Yes Status: Acute CT at time of admission with bowel wall thickening and loops of jejunum within the LUQ suspicious for an enteritis. Patient reports bouts of diarrhea at home prior to coming to the hospital, and now with continued postprandial vomiting. Hemoccult negative. PPI switched to IV. KUB with constipation - recommend treatment of constipation, anti-emetics, and dietary modifications, and reevaluation. Continue to monitor symptoms. Repeat CT now. (6) Constipation: Current visit: Yes Status: Acute Standing Senna, Colace, Miralax ineffective. Patient on chronic opiates. Moved bowels well with addition of Lactulose. (7) UTI (urinary tract infection): Current visit: Yes Status: Acute Due to Proteus Hauseri, sensitive to both Levaquin and Ceftriaxone. Continue Fluoroquinolone therapy, renally dosed, currently day #8. Repeat Cx with both proteus and pseudomonas, both <100,000 cfu/ml - continue current management which should cover pseudomonas species as well. (8) CHF (congestive heart failure): Current visit: Yes Status: Chronic LVEF 35-40% with diffuse hypokinesis and regional variations on ECHO from 12/2017. Currently appears euvolemic, weight stable. Continue BB and statin therapy and monitor volume status closely. Check daily weights. IVF's discontinued. (9) DVT prophylaxis: Current visit: Yes Status: Acute Hold on anticoagulation secondary to active hematuria with significant transfusion requiring anemia. Ensure SCDs in place. Subjective Interval history since last seen: 62 year old man with PMHx significant for bladder cancer with obstructive uropathy, s/p bilateral nephrostomy tubes, CKD stage 5 (not on dialysis), chronic hematuria with subsequent anemia, Chronic systolic CHF wih EF 35% admitted from [facility] ED on 02/23/2018 with evidence of enteritis by CT, and anemia by labwork. Mr. Rosas initially reported continuous hematuria, and that his nephrostomy tubes have not had any output since 2 days prior to his admission. He also reported fevers/chills at home. Subsequent Urinalysis showed evidence of a UTI, with cultures showing growth of Proteus Hauseri, and repeat cultures grew <100,000 colonies/ml of both Proteus and Pseudomonas - currently maintained on renally dosed Levofloxacin. The patient was also noted to be anemic with a Hgb of 6.4, and was transfused with PRBCs. He was also found to have evidence of enteritis on CT. Although he reported improved symptoms previously, he states continued episodes of postprandial vomiting but without nausea. Imaging of his abdomen with a KUB showed evidence of constipation, and following optimization of his bowel regimen he moved his bowels well. Despite this he continues to have episodes of postprandial vomiting. Further discussion and med review revealed possible relation to PPI administration. Mr. Rosas's protonix was changed to IV Ranitidine. A repeat CT of the abdomen was also ordered. The patient is planning to undergo bladder surgery at [facility] on March 15. This morning's Hemoglobin appears stable. Patient states that he feels vastly improved since time of admission, and states decreased volume of hematuria, but with increased frequency. No other events reported overnight. Patient remains afebrile. Exam Narrative Exam Narrative: General: Cachectic and ill appearing but in NAD. Skin: Pallor noted. Neck: Supple. CV: Regular. No overt Rubs, Murmurs, or Gallops. Lungs: CTAB Abdomen: soft, nondistended, prior LLQ/RLQ tenderness improved : Bilateral nephrostomy tubes in place; R with clear-yellow output; L with continued cloudy output Extremities: Trace b/l LE Edema. Objective Objective Clinical Data: Abnormal lab results 03/03/18 03/03/18 Range/Units 06:25 06:25 RBC 3.09 L (4.50-6.00) m/cumm Hgb 8.7 L (13.5-17.5) g/dL Hct 27.3 L (40.0-50.0) % MCHC 31.9 L (32.0-36.0) g/dL RDW 16.0 H (11.8-14.1) % Plt Count 624 H (130-400) x1000/uL Absolute Monocytes 1.03 H (0.11-0.7) k/cumm Carbon Dioxide 20.9 L (21.0-32.0) mmol/L Anion Gap 11.1 H (3-11) mmol/L BUN 41 H (7-18) mg/dL Creatinine 4.44 H* (0.70-1.30) mg/dL Vital Signs Temperature 36.9 C 03/03/18 16:28 Temperature Source Tympanic 03/03/18 16:28 Pulse 88 03/03/18 16:28 Pulse Rhythm Regular 03/03/18 07:38 Pulse 93 H 02/23/18 17:30 Respiratory Rate 19 03/03/18 16:28 Respiratory Effort Non-Labored 03/03/18 07:38 Respiratory Depth Normal 03/03/18 07:38 Respiratory Pattern Normal 03/03/18 07:38 Blood Pressure 154/95 H 03/03/18 16:28 Blood Pressure Mean 91 02/23/18 17:21 Blood Pressure Position Supine 02/22/18 23:00 Pulse Oximetry 98 03/03/18 16:28 Oxygen Delivery Method Room Air 03/03/18 16:28 Oxygen Flow Rate 0 03/03/18 16:28 Pain Level 2 03/03/18 18:12 Comment 02/26/18 03:45 Intake & Output 03/02/18 03/03/18 03/03/18 23:59 11:59 23:59 Intake Total 600 / 600 530 / 530 302 / 302 Output Total 1000 / 1000 1225 / 1225 325 / 325 Balance -400 / -400 -695 / -695 -23 / -23 Intake: IV 62 / 62 Oral 600 / 600 510 / 510 240 / 240 Output: Drainage 1000 / 1000 925 / 925 225 / 225 Left Posterior Back 50 / 50 75 / 75 25 / 25 Right Posterior Back 950 / 950 850 / 850 200 / 200 Urine 100 / 100 Emesis 300 / 300 Other: Urine Color Yellow Webb Urine Appearance Clear Clear Clear Hematuria Hematuria Clots Clots Urine Odor None Comment 300ml from right nephrostomy tube Void x1 in the urinal. Stool Size Large Moderate Moderate Stool Characteristics Liquid Soft Soft Brown Formed Formed Brown Emesis Description Undigested Food Retching Voiding Methods Urinal Laboratory Results WBC 8.65 k/cumm (4.4-10.8) 03/03/18 06:25 RBC 3.09 m/cumm (4.50-6.00) L 03/03/18 06:25 Hgb 8.7 g/dL (13.5-17.5) L 03/03/18 06:25 Hct 27.3 % (40.0-50.0) L 03/03/18 06:25 MCV 88.3 fL (80-95) 03/03/18 06:25 MCH 28.2 pg (27.0-33.0) 03/03/18 06:25 MCHC 31.9 g/dL (32.0-36.0) L 03/03/18 06:25 RDW 16.0 % (11.8-14.1) H 03/03/18 06:25 Plt Count 624 x1000/uL (130-400) H 03/03/18 06:25 MPV 8.8 fL (8.0-11.0) 03/03/18 06:25 Immature Gran % 0.2 03/03/18 06:25 Neutrophils % 67.0 03/03/18 06:25 Lymphocytes % 14.3 03/03/18 06:25 Monocytes % 11.9 03/03/18 06:25 Eosinophils % 5.8 03/03/18 06:25 Basophils % 0.8 03/03/18 06:25 Absolute Neutrophils 5.79 k/cumm (1.2-6.7) 03/03/18 06:25 Absolute Lymphocytes 1.24 k/cumm (1.2-3.4) 03/03/18 06:25 Absolute Monocytes 1.03 k/cumm (0.11-0.7) H 03/03/18 06:25 Absolute Eosinophils 0.50 k/cumm (0.0-0.7) 03/03/18 06:25 Absolute Basophils 0.07 k/cumm (0.0-0.2) 03/03/18 06:25 Differential Comment Diff reviewed 02/22/18 12:35 RBC Morphology See below 02/22/18 12:35 Polychromasia Present 02/22/18 12:35 Hypochromasia 1+ 02/22/18 12:35 Poikilocytosis 2+ 02/22/18 12:35 Anisocytosis 1+ 02/22/18 12:35 Sodium 136 mmol/L (136-145) 03/03/18 06:25 Potassium 4.2 mmol/L (3.5-5.1) 03/03/18 06:25 Chloride 104 mmol/L (98-107) 03/03/18 06:25 Carbon Dioxide 20.9 mmol/L (21.0-32.0) L 03/03/18 06:25 Anion Gap 11.1 mmol/L (3-11) H 03/03/18 06:25 BUN 41 mg/dL (7-18) H 03/03/18 06:25 Creatinine 4.44 mg/dL (0.70-1.30) H* 03/03/18 06:25 Estimated GFR/1.73 m2 13.56 (mL/min/1.73m2) 03/03/18 06:25 Glucose 95 mg/dL (70-100) 03/03/18 06:25 Lactate 0.7 mmol/L (0.6-1.4) 02/23/18 06:40 Calcium 8.9 mg/dL (8.5-10.1) 03/03/18 06:25 Magnesium 1.8 mg/dL (1.8-2.4) 02/26/18 05:53 Total Bilirubin 0.3 mg/dL (0.2-1.0) 02/22/18 12:35 AST 11 U/L (15-37) L 02/22/18 12:35 ALT 11 U/L (12-78) L 02/22/18 12:35 Alkaline Phosphatase 115 U/L (46-116) 02/22/18 12:35 Troponin I < 0.02 ng/mL (0.00-0.06) 02/22/18 12:35 Total Protein 7.4 g/dL (6.4-8.2) 02/22/18 12:35 Albumin 2.3 g/dL (3.4-5.0) L 02/22/18 12:35 Lipase 71 U/L (73-393) L 02/22/18 12:35 Urine Color Yellow (Yellow) 02/26/18 13:50 Urine Clarity Turbid 02/26/18 13:50 Urine pH 7.5 (5-8) 02/26/18 13:50 Ur Specific [place] 1.025 (1.005-1.025) 02/26/18 13:50 Urine Protein >=300 mg/dL (Negative) H 02/26/18 13:50 Urine Ketones Negative mg/dL (Negative) 02/26/18 13:50 Urine Blood Large (Negative) H 02/26/18 13:50 Urine Nitrite Negative (Negative) 02/26/18 13:50 Urine Bilirubin Negative (Negative) 02/26/18 13:50 Urine Urobilinogen 0.2 EU/dL (Up TO 0.2) 02/26/18 13:50 Ur Leukocyte Esterase Moderate (Negative) H 02/26/18 13:50 Urine RBC Not Applicable 02/26/18 13:50 Urine WBC HPF (0-5) 02/26/18 13:50 Ur Epithelial Cells Not Applicable 02/26/18 13:50 Urine Crystals Not Applicable 02/26/18 13:50 Urine Bacteria Not Applicable 02/26/18 13:50 Urine Mucus Not Applicable 02/26/18 13:50 Ur Culture Indicated? Yes 02/26/18 13:50 Urine Glucose Negative mg/dL (Negative) 02/26/18 13:50 Patient ABO/Rh O Positive 02/22/18 14:20 Antibody Screen Negative 02/22/18 14:20 Crossmatch See Detail 02/22/18 14:20 Reaction Clerical Check No clerical errors 02/23/18 06:40 Pre-Trans Blood Type O Positive 02/23/18 06:40 Pre-Trans Bld Appearanc No hemolysis/icterus 02/23/18 06:40 Pre-Trans BRITNEY Not Applicable 02/23/18 06:40 Post-Trans Blood Type O Positive 02/23/18 06:40 Post-Trans Spec Appear No hemolysis/icterus 02/23/18 06:40 Post-Trans BRITNEY Negative 02/23/18 06:40 Reaction Pathol Review Negative-complete 02/23/18 06:40
[2018-03-03 19:28] VITALS: BP 130/85; PULSE 76; RESP 19; TEMP 36.9; O2SAT 97
[2018-03-03] MEDS: Senna TAB 2 TAB PO (21:20)
[2018-03-03] MEDS: Atorvastatin 40 MG TAB 80 MG PO (21:20)
[2018-03-04 00:10] VITALS: BP 135/83; PULSE 64; RESP 16; TEMP 36.5; O2SAT 99
[2018-03-04] MEDS: Normal Saline Flush 10 ML SYR IVP ×2 (01:21→09:40)
[2018-03-04] MEDS: oxyCODONE 5 MG TAB 10 MG PO ×2 (01:21→11:45)
[2018-03-04 04:37] VITALS: BP 132/89; PULSE 82; RESP 16; TEMP 36.6; O2SAT 97
[2018-03-04 07:26] LABS: Abs Immature Grans 0.02 k/cumm (0.0-0.09); Absolute Basophil Count 0.06 k/cumm (0.0-0.2); Absolute Eosinophil Count 0.54 k/cumm (0.0-0.7); Absolute Lymphocyte Count 1.41 k/cumm (1.2-3.4); Absolute Monocyte Count 1.04 k/cumm (0.11-0.7); Absolute Neutrophil Count 4.41 k/cumm (1.2-6.7); Basophils % 0.8; Eosinophils % 7.2; HCT 27.1 % (40.0-50.0); HGB 8.5 g/dL (13.5-17.5); Immature Grans % 0.3; Lymphocytes % 18.9; Mean Corp. HGB Concentration 31.4 g/dL (32.0-36.0); Mean Corpuscular Hemoglobin 27.9 pg (27.0-33.0); Mean Corpuscular Volume 88.9 fL (80-95); Mean Platelet Volume 8.8 fL (8.0-11.0); Monocytes % 13.9; Neutrophils % 58.9; Platelet Count 608 x1000/uL (130-400); RBC 3.05 m/cumm (4.50-6.00); RBC Distribution Width 15.8 % (11.8-14.1); White Blood Cell Count 7.48 k/cumm (4.4-10.8)
[2018-03-04 07:39] LABS: Anion Gap 10.7 mmol/L (3-11); BUN 38 mg/dL (7-18); CO2 22.3 mmol/L (21.0-32.0); Calcium 8.8 mg/dL (8.5-10.1); Chloride 104 mmol/L (98-107); Estimated GFR 13.95 (mL/min/1.73m2); Glucose 77 mg/dL (70-100); Potassium 4.4 mmol/L (3.5-5.1); Sodium 137 mmol/L (136-145)
[2018-03-04 07:50] VITALS: BP 131/83; PULSE 82; RESP 18; TEMP 36.7; O2SAT 96
[2018-03-04 07:54] LABS: CREATININE 4.33 mg/dL (0.70-1.30)
[2018-03-04 09:32] VITALS: O2SAT 95
[2018-03-04] MEDS: LEVOFLOXACIN 250 MG/50 ML BAG 50 MG IVPB (09:39)
[2018-03-04] MEDS: Nicotine 14 MG/24 HR PATCH TD (09:39)
[2018-03-04] MEDS: Docusate Sodium 100 MG CAP PO (09:39)
[2018-03-04] MEDS: Carvedilol 3.125 MG TAB PO (09:39)
--- NOTE | 2018-03-04 09:47 | PDOC.CMDIS ---
- If Service Date Differs Date of service: 03/04/18 Time of Service: 09:47 LACE Index Scoring Tool - Questions: Length of Stay (in days): 7 - 13 Acuity (Admit via E.D.?): Yes Comorbidities: Congestive Heart Failure, Mild Liver/Renal Disease, Liver or Renal Disease, Metastatic Solid Tumor E.D. Visits: 4 - Answers: Total Score: 17 Risk of Readmission: High Risk Care Management Discharge Reason for Hospitalization: Dehydration. Discharge Plan: Cornelio will discharge home when medically ready per MD. Anticipate patient will discharge with increased home health services and follow up with his PCP. Cornelio will transport via private vehicle with his ex-, Brittany. Patient/Family Education Needs: Discharge education, any limitations, and follow up plan of care. Ask Me Three discussion. Services Needed at Discharge: Home Health Care Services (Increased services through [facility]. )
--- NOTE | 2018-03-04 10:02 | CMDISCH_ITS ---
- If Service Date Differs Date of service: 03/04/18 Time of Service: 09:47 LACE Index Scoring Tool - Questions: Length of Stay (in days): 7 - 13 Acuity (Admit via E.D.?): Yes Comorbidities: Congestive Heart Failure, Mild Liver/Renal Disease, Liver or Renal Disease, Metastatic Solid Tumor E.D. Visits: 4 - Answers: Total Score: 17 Risk of Readmission: High Risk Care Management Discharge Reason for Hospitalization: Dehydration. Discharge Plan: Cornelio will discharge home when medically ready per MD. Anticipate patient will discharge with increased home health services and follow up with his PCP. Cornelio will transport via private vehicle with his ex- , Brittany. Patient/Family Education Needs: Discharge education, any limitations, and follow up plan of care. Ask Me Three discussion. Services Needed at Discharge: Home Health Care Services (Increased services through [facility]. )
[2018-03-04 11:25] VITALS: BP 138/81; PULSE 85; RESP 18; TEMP 36.6; O2SAT 96
[2018-03-04] MEDS: fentaNYL 12 MCG PATCH TD (11:38)
--- NOTE | 2018-03-04 12:23 | DSE_ITS ---
Date of service: 03/04/18 Time of Service: 12:16 DS: Diagnosis Discharge Diagnosis (1) Symptomatic anemia: Status: Acute (2) Hematuria: Status: Acute (3) Bladder cancer: Status: Chronic (4) Chronic kidney disease, stage 5: Status: Chronic (5) Enteritis: Status: Acute (6) Constipation: Status: Acute (7) UTI (urinary tract infection): Status: Acute Discharge Plan Disposition Patient Disposition: HOME W/HOME HEALTH SERVICE Condition: Stable Discharge Details Reason For Visit: DEHYDRATION Admit Date/Time: 02/23/18 15:52 Admit Provider: Alexandria Mayen Attending Provider: Alexandria Mayen Primary Care Provider: Francois Zepeda Hospital Course Hospital Course: CC: Nausea, Vomiting HPI: 62 year old man with PMHx significant for bladder cancer with obstructive uropathy, s/p bilateral nephrostomy tubes, CKD stage 5 (not on dialysis), chronic hematuria with subsequent anemia, Chronic systolic CHF wih EF 35% admitted from [facility] ED on 02/23/2018 with evidence of enteritis by CT, and anemia by labwork. Mr. Rosas initially reported continuous hematuria, and that his nephrostomy tubes had not had any output since 2 days prior to his admission. He also reported fevers/chills at home. Subsequent Urinalysis showed evidence of a UTI, with cultures showing growth of Proteus Hauseri, and repeat cultures grew <100, 000 colonies/ml of both Proteus and Pseudomonas - currently maintained on renally dosed Levofloxacin. The patient was also noted to be anemic with a Hgb of 6.4, and was transfused with PRBCs. He was also found to have evidence of enteritis on CT. Although he reported improved symptoms previously, he states continued episodes of postprandial vomiting but without nausea. Imaging of his abdomen with a KUB showed evidence of constipation, and following optimization of his bowel regimen he moved his bowels well. Despite this he continued to have episodes of postprandial vomiting. Further discussion and med review revealed possible relation to PPI administration which was discontinued, and today he reports no further emesis for over 24 hours. Mr. Rosas's protonix was changed to IV Ranitidine. A repeat CT of the abdomen was also performed and without significant pathology (Interval Decompression of kidneys, moderately dilated stomach and mildly dilated loops of small bowel). The patient is planning to undergo bladder surgery at [facility] on March 15. This morning's Hemoglobin again appears stable. Patient states that he feels vastly improved since time of admission, and states decreased volume of hematuria. No other events reported overnight. Patient remains afebrile. Hospital Course: 1) Symptomatic anemia: S/p transfusion with total of 4 units of PRBC's. Heme negative stool noted. Anemia presumed secondary to persistent hematuria. Case discussed previously with Dr. Espitia of [facility] urology who recommended monitoring and transfusion as needed. Hemoglobin again stable. Continue to monitor. Will repeat Hgb level in 3 days as outpatient. (2) Hematuria: Due to known bladder mass. Potential for palliative radiation prior to planned surgery (palliative Cystectomy). Currently with improved symptoms and stable hemoglobin. (3) Bladder cancer: Metastatic to lung. Patient would still like aggressive care and is full code. Scheduled for palliative cystectomy at [facility] 03/15. Per Palliative care instructions initiated low dose fentanyl patch. Will continue oxy on prn basis, and titrate as needed. Bowel Regimen instituted as well. (4) Chronic kidney disease, stage 5: Creatinine initially improved after flushing nephrostomy tubes. Left Nephrostomy with chronically lower output than right. Tubes were flushed again previously. Continue to monitor, avoid nephrotoxins, and renally dose medications when appropriate. Current renal function is at baseline and stable. (5) Enteritis: CT at time of admission with bowel wall thickening and loops of jejunum within the LUQ suspicious for an enteritis. Patient reports bouts of diarrhea at home prior to coming to the hospital, and now with continued postprandial vomiting. Hemoccult negative. PPI switched to IV. KUB with constipation - recommend treatment of constipation, anti-emetics, and dietary modifications, and reevaluation. Repeat CT as noted above. Symptoms appear improved, and vomiting may have been side effect of PPI therapy, resolved with change to H2 tremayne. (6) Constipation: Standing Senna, Colace, Miralax, and prn lactulose. Patient on chronic opiates. (7) UTI (urinary tract infection): Due to Proteus Hauseri, sensitive to both Levaquin and Ceftriaxone. Continue Fluoroquinolone therapy, renally dosed, currently day #8. Repeat Cx with both proteus and pseudomonas, both <100,000 cfu/ml - continue current management which should cover pseudomonas species as well. Will continue for a total of 14 day course for pyelonephritis (Nephrostomy tubes). (8) CHF (congestive heart failure): LVEF 35-40% with diffuse hypokinesis and regional variations on ECHO from 2017. Currently appears euvolemic, weight stable. Continue BB and statin therapy. Weight was stable during hospitalization. (9) DVT prophylaxis: Chemical Prophylaxis was held secondary to active hematuria with significant transfusion requiring anemia. Patient was maintained with SCDs in place. (10) Disposition Mr. Rosas is a full code. He is being discharged to home with home health services to include nursing - he is refusing home PT. Home Meds and New Rx's Prescriptions: New sennosides [Senokot] 8.6 mg Tablet 2 tab PO HS Qty: 60 RF: 0 fentanyl 12 mcg/hr Patch 72 Hour 12 mcg Transdermal Q72H Qty: 1 RF: 0 ranitidine HCl 150 mg tablet 150 mg PO DAILY Qty: 60 RF: 0 levofloxacin 250 mg tablet 250 mg PO Q OTHER DAY Qty: 3 RF: 0 Continue carvedilol [Coreg] 3.125 mg tablet 3.125 mg PO BID RF: 0 atorvastatin [Lipitor] 80 MG tablet 80 mg PO DAILY RF: 0 acetaminophen 325 MG tablet 2 tab PO Q6H PRNRF: 0 OxyCODONE [Roxicodone Prepack] 5 MG Tab 1 tab PO Q4H PRNRF: 0 ondansetron 4 MG tablet,disintegrating 4 mg PO Q6H PRN (Reason: Nausea) Qty: 10 RF: 0 Changed polyethylene glycol 3350 17 GM powder in packet 17 gm PO DAILY Qty: 0 RF: 0 docusate sodium 100 MG capsule 100 mg PO TID Qty: 90 RF: 0 Discharge Instructions Instructions: Dehydration (DC) Stand Alone Forms: Nursing Discharge Form Referrals: Tracy Roberson MD [ [facility] STAFF PHYSICIAN] - (Dr. Roberson will see you on the scheduled appointment date.) Activity:: No Strenuous Activity Equipment/Supplies:: No Equipment Needed Diet:: Low Sodium Discharge Orders Discharge Orders: Discharge Order (Routine); Ordered 03/04/18 Ordered By: Black Guzman Other Ambulatory Orders: Complete Blood Count No Diff (Routine) Timeframe: 3 Days Location: Determined by Patient Ordered By: Black Lathari DS: Data Vitals/I&O Vitals and I&O: Vital Signs Temperature 36.6 C 03/04/18 11:25 Temperature Source Tympanic 03/04/18 11:25 Pulse 85 03/04/18 11:25 Pulse Rhythm Regular 03/04/18 09:30 Pulse 93 H 02/23/18 17:30 Respiratory Rate 18 03/04/18 11:25 Respiratory Effort Non-Labored 03/04/18 09:30 Respiratory Depth Normal 03/04/18 09:30 Respiratory Pattern Normal 03/04/18 09:30 Blood Pressure 138/81 03/04/18 11:25 Blood Pressure Mean 91 02/23/18 17:21 Blood Pressure Position Supine 02/22/18 23:00 Pulse Oximetry 96 03/04/18 11:25 Oxygen Delivery Method Room Air 03/04/18 11:25 Oxygen Flow Rate 0 03/04/18 11:25 Pain Level 4 03/04/18 11:45 Comment 02/26/18 03:45 Intake & Output 03/03/18 03/04/18 03/04/18 23:59 11:59 23:59 Intake Total 1092 / 1092 782 / 782 Output Total 875 / 875 925 / 925 Balance 217 / 217 -143 / -143 Weight 53.8 kg Intake: IV 62 / 62 72 / 72 Oral 1030 / 1030 710 / 710 Output: Drainage 525 / 525 925 / 925 Left Posterior Back 25 / 25 50 / 50 Right Posterior Back 500 / 500 875 / 875 Urine 350 / 350 Other: Urine Color Webb Urine Appearance Clots Clear Urine Odor None Comment Void x1 in the urinal. Patient inc x 1. Performed own inc care Stool Size Moderate Stool Characteristics Soft Formed Voiding Methods Urinal Completed studies during hospitalization [Text1]: Exam(s) 02/22/[address]:CT abdomen & pelvis wo SYMPTOMS/DIAGNOSIS: VOMITING, H/O BLADDER CA, NEPHRO TUBES, ABDOMINAL CT SCAN OF THE ABDOMEN AND PELVIS: CT scan of the abdomen and pelvis was performed without intravenous contrast material. Oral contrast was administered. Comparison is 12/15/17. The patient has a large urinary bladder mass. It is unchanged compared to the prior examination. There is resultant marked hydronephrosis of the kidneys bilaterally. The patient has bilateral nephrostomy tubes. The pigtails are seen within the renal pelves. There has been no progression of the degree of distention of the renal collecting system since 12/15/17. There are again seen several hypodense lesions within the liver, which appear stable and are indeterminate. The gallbladder is negative. No biliary ductal dilatation is present. The pancreas and spleen are unremarkable. The adrenal glands are stable. There is mild thickening of the wall of loops of small bowel in the left upper quadrant, which may reflect an enteritis. The remainder of the bowel shows no evidence of obstruction or inflammation. No findings to suggest an acute appendicitis are present. There is atherosclerosis of the abdominal aorta but no aneurysmal dilatation. No significant abdominal or pelvic adenopathy, ascites or pneumoperitoneum is present. There is again seen a large incompletely imaged hydrocele. IMPRESSION: 1. Bowel wall thickening and loops of jejunum in the left upper quadrant suspicious for an enteritis. 2. Stable urinary bladder mass causing marked hydronephrosis bilaterally. Bilateral nephrostomy tubes, which are stable in position. 3. Large incompletely imaged hydrocele. ------- EXAM: 02/22/2018 XR Chest, 1 View CLINICAL HISTORY: 62 years old, male; Signs and symptoms; Other: Fevers, cough - R/O pna TECHNIQUE: Frontal view of the chest. COMPARISON: CT CHEST ABD PELVIS WO CONTRAST 12/15/2017 11:18 AM FINDINGS: Lungs: The cardiomediastinal silhouette is within normal limits. The coronary vasculature is within normal limits. There is hyperventilation consistent with emphysema/COPD. The lungs are otherwise clear. Pleural space: No pneumothorax. No pleural effusion. Heart: Unremarkable. No cardiomegaly. Mediastinum: Unremarkable. Bones/joints: Moderate multilevel degenerative changes of the spine. Degenerative changes of the acromioclavicular joints. Other findings: There is mild rotation. IMPRESSION: No acute cardiopulmonary abnormality. COPD/emphysema. ------- Exam(s) a RAD:XR portable chest AP SYMPTOMS/DIAGNOSIS: FEVERS, COUGH, ? PNEUMONIA CHEST X-RAY, PORTABLE AP VIEW: No priors. The heart size and pulmonary vasculature are within normal limits. The lungs are clear. No effusions or pneumothoraces are identified. The lungs appear hyperinflated suggesting underlying COPD. Degenerative changes are seen in the spine and the shoulders bilaterally, right greater than left. IMPRESSION: No acute pulmonary process. ------- Exam(s) a RAD:XR abdomen flat & upright SYMPTOM/DIAGNOSIS: PERSISTENT NAUSEA, VOMITING KUB AND UPRIGHT: Bilateral nephrostomy tubes are demonstrated and are in stable position when compared with a prior CT. There is no evidence of bowel obstruction, gross organomegaly or a localized intra-abdominal or pelvic mass. Note is made of a considerable quantity of fecal material in the ascending and transverse colonic segments consistent with constipation. SUMMARY: No acute abnormality is demonstrated. Exam(s) a CT:CT abdomen & pelvis wo SYMPTOMS/DIAGNOSIS: PERSISTENT VOMITING, DEHYDRATION CT EXAMINATION OF THE ABDOMEN AND PELVIS: The study was carried out without contrast enhancement and is compared with a prior study of 02/22. No acute abnormality involving the lung bases is identified. The liver is enlarged and again noted are multiple rounded areas of radiolucencies, presumably representing cysts. The pancreas is intact. Splenic granulomata are identified. There is no evidence of a mass. The nephrostomy tubes appear to be in good position with interval decompression of the right and left hydronephrotic changes noted on the prior examination. A mildly dilated fluid-filled stomach is identified and allowing for the absence of contrast material, there are mildly dilated small bowel loops throughout the abdomen. There is scattered fecal material and gas in the colon. There is nothing to suggest a localized inflammatory process or bowel wall mass. When compared with the previous examination, again noted is the huge bladder mass, unchanged. There is no evidence of free air or free fluid in the abdomen or pelvis. There is atherosclerotic change involving the aorta without evidence of an aneurysm; degenerative changes involving the lumbar spine are again seen. SUMMARY: Interval decompression of the kidneys is noted, nephrostomy tubes in place. The stomach is moderately dilated and fluid-filled, mildly dilated loops of small bowel are identified. There has been no definite interval change when compared with the previous examination with note again made of a large bladder mass. Labs on day of discharge: Labs from last 24 hours 03/04/18 03/04/18 02/26/18 06:10 06:10 13:50 WBC 7.48 RBC 3.05 L Hgb 8.5 L Hct 27.1 L MCV 88.9 MCH 27.9 MCHC 31.4 L RDW 15.8 H Plt Count 608 H MPV 8.8 Immature Gran % 0.3 Neutrophils % 58.9 Lymphocytes % 18.9 Monocytes % 13.9 Eosinophils % 7.2 Basophils % 0.8 Absolute Neutrophils 4.41 Absolute Lymphocytes 1.41 Absolute Monocytes 1.04 H Absolute Eosinophils 0.54 Absolute Basophils 0.06 Sodium 137 Potassium 4.4 Chloride 104 Carbon Dioxide 22.3 Anion Gap 10.7 BUN 38 H Creatinine 4.33 H* Estimated GFR/1.73 m2 13.95 Glucose 77 Calcium 8.8 Urine Color Yellow Urine Clarity Turbid Urine pH 7.5 Ur Specific [place] 1.025 Urine Protein >=300 H Urine Ketones Negative Urine Blood Large H Urine Nitrite Negative Urine Bilirubin Negative Urine Urobilinogen 0.2 Ur Leukocyte Esterase Moderate H Urine WBC Ur Culture Indicated? Yes Urine Glucose Negative Preliminary micro results at discharge 02/26/18 13:50 Urine Culture - Preliminary Urine - Cath Not Specified Alcaligenes Faecalis Spp Faeca Proteus hauseri
== END 2018-03-04 17:51 | disposition home health service (06) | DRG 812 ==
LOC: ER 12:16 → ICU 02-23 12:28 → MS 02-23 18:41
PROVIDERS: General Practice; Internal Medicine; Admitting Provider Internal Medicine; Emergency Provider Student in an Organized Health Care Education/Training Program; PCP Family Medicine; Visit Provider Internal Medicine
DX: D50.0 Iron deficiency anemia secondary to blood loss (chronic) (principal); N18.5 Chronic kidney disease, stage 5; N39.0 Urinary tract infection, site not specified; N13.8 Other obstructive and reflux uropathy; I50.22 Chronic systolic (congestive) heart failure; C78.00 Secondary malignant neoplasm of unspecified lung; N17.9 Acute kidney failure, unspecified; R31.0 Gross hematuria; C67.9 Malignant neoplasm of bladder, unspecified; T83.092A Other mechanical complication of nephrostomy catheter, initial encounter; K52.89 Other specified noninfective gastroenteritis and colitis; K59.00 Constipation, unspecified; E86.0 Dehydration; R50.9 Fever, unspecified; E87.5 Hyperkalemia; B96.4 Proteus (mirabilis) (morganii) as the cause of diseases classified elsewhere; Z16.11 Resistance to penicillins; Z16.19 Resistance to other specified beta lactam antibiotics; Z16.29 Resistance to other single specified antibiotic; Z51.5 Encounter for palliative care
CPT/HCPCS: 36415; 36430; 80048; 80053; 83690; 85027; 86850; 86900; 86901; 86920; 87040; 87077; 93005; 94640; 96361; 96372; 96374; 96375; 99223; 99232; 99233; 99239; 99253; 99255; 99285; 71045; 74019; 74176; 81003; 81015; 83605; 83735; 84484; 85014; 85018; 85025; 86880; 87086; 87186; 93010; 99220; G0378; J0610; J0696; J1956; J2405; J3490; J7613; P9016; Q9967

== ENCOUNTER 2018-03-07 14:14 | Outpatient (CLI) | payer MEDICAID, SELFPAY ==
[2018-03-07 15:04] LABS: HCT 32.2 % (40.0-50.0); HGB 10.1 g/dL (13.5-17.5); Mean Corp. HGB Concentration 31.4 g/dL (32.0-36.0); Mean Corpuscular Hemoglobin 28.5 pg (27.0-33.0); Mean Corpuscular Volume 90.7 fL (80-95); Mean Platelet Volume 9.2 fL (8.0-11.0); Platelet Count 614 x1000/uL (130-400); RBC 3.55 m/cumm (4.50-6.00); RBC Distribution Width 16.1 % (11.8-14.1); White Blood Cell Count 10.64 k/cumm (4.4-10.8)
== END 2018-03-07 14:34 ==
PROVIDERS: Family Medicine; PCP Family Medicine; Visit Provider Internal Medicine
DX: D50.0 Iron deficiency anemia secondary to blood loss (chronic) (principal)
CPT/HCPCS: 36415; 85027

== ENCOUNTER 2018-10-02 13:51 | Observation (INO) | payer MEDICAID, SELFPAY ==
[2018-10-02] VITALS (9 sets, daily range): BP systolic 150–188; BP diastolic 90–110; PULSE 71–89; RESP 15–20; TEMP 36.1–37.2; O2SAT 95–97
--- NOTE | 2018-10-02 13:55 | NUR.NOTE ---
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
[2018-10-02] MEDS: Normal Saline 1,000 ML 1000 ML IV (14:08)
[2018-10-02 14:31] LABS: Abs Immature Grans 0.01 k/cumm (0.0-0.09); Absolute Basophil Count 0.04 k/cumm (0.0-0.2); Absolute Eosinophil Count 0.15 k/cumm (0.0-0.7); Absolute Monocyte Count 0.46 k/cumm (0.11-0.7); Basophils % 0.7; Eosinophils % 2.7; HCT 34.6 % (40.0-50.0); HGB 11.2 g/dL (13.5-17.5); Immature Grans % 0.2; Mean Corp. HGB Concentration 32.4 g/dL (32.0-36.0); Mean Corpuscular Hemoglobin 30.9 pg (27.0-33.0); Mean Corpuscular Volume 95.6 fL (80-95); Mean Platelet Volume 9.6 fL (8.0-11.0); Monocytes % 8.4; Platelet Count 407 x1000/uL (130-400); RBC 3.62 m/cumm (4.50-6.00); RBC Distribution Width 13.9 % (11.8-14.1); White Blood Cell Count 5.46 k/cumm (4.4-10.8)
[2018-10-02 14:36] LABS: ALT 13 U/L (12-78); AST 9 U/L (15-37); Albumin 2.9 g/dL (3.4-5.0); Alkaline Phosphatase 94 U/L (46-116); Anion Gap 8.3 mmol/L (3-11); BUN 39 mg/dL (7-18); Bilirubin, Total 0.3 mg/dL (0.2-1.0); CO2 26.7 mmol/L (21.0-32.0); Calcium 8.7 mg/dL (8.5-10.1); Chloride 104 mmol/L (98-107); Estimated GFR 16.42 (mL/min/1.73m2); Glucose 144 mg/dL (70-100); Potassium 4.4 mmol/L (3.5-5.1); Sodium 139 mmol/L (136-145); TSH 3.37 uIU/mL (0.358-3.74); Total Protein 6.9 g/dL (6.4-8.2)
[2018-10-02 14:38] LABS: CREATININE 3.75 mg/dL (0.70-1.30); Troponin I < 0.02 ng/mL (0.00-0.06)
--- NOTE | 2018-10-02 15:25 | DI.RAD_ITS ---
SYMPTOMS/DIAGNOSIS: SYNCOPE PA AND LATERAL CHEST: Comparison is made with Oct18. The heart size is normal. Emphysematous and fibrotic changes are again noted. There is no focal infiltrate, effusion or pulmonary edema. Degenerative changes are seen in the spine. IMPRESSION: Emphysematous and fibrotic changes. No acute abnormality.
--- NOTE | 2018-10-02 15:32 | DI.CT_ITS ---
SYMPTOMS/DIAGNOSIS: SYNCOPE NONCONTRAST HEAD CT: No intracranial hemorrhage, mass or infarct is seen. There is mild atrophy. The ventricles are normal in size. There is an old fracture of the medial wall of the right orbit. There is a mucous retention cyst in the left sphenoid sinus. The mastoid air cells appear clear. IMPRESSION: No acute abnormality.
--- NOTE | 2018-10-02 15:42 | ED.GENADUL_ITS ---
Discharge Plan Disposition Patient Disposition: [facility] INPATIENT Condition: Stable Discharge Details Chief Complaint: Dizzy/Sync Clinical Impression: Syncope Admit Date/Time: 10/02/18 15:59 Admit Provider: Alexandria Mayen Attending Provider: Alexandria Mayen Primary Care Provider: None,None ED Provider: Martine Crawley Discharge Instructions Activity:: Activity as Tolerated Equipment/Supplies:: No Equipment Needed Diet:: Low Sodium Discharge Orders Discharge Orders: Discharge Order (Routine); Ordered 10/03/18 Ordered By: Alexandria Mayen Discharge Data Discharge Date/Time-TO BE ENTERED AT DEPARTURE: 10/02/18 16:35 Medical Decision Making Patient is 63-year-old male presenting today for evaluation after syncopal episode. Patient is describing an episode where he went from a laying position to a standing position when he suddenly became presyncopal, went to his knees later fell to the ground. He reports that it was witnessed and did not strike his head. Describes a brief loss of conscious. Has never had episode like this historically. He denies any chest pain, palpitations, no neurologic symptoms. Patient does have complicated health history, end-stage kidney disease, known cancer with metastasis. Patient is status post total cystectomy. On exam, patient appears chronically ill. Does appear at baseline. He is cachectic. No acute neurologic findings, normal sinus rhythm on cardiac exam. His history and symptoms are most consistent with orthostatic hypotension with syncopal episode. Will obtain baseline laboratory evaluation, orthostatics and reevaluate the patient. Orthostatics are negative. Laboratory evaluation significant for anemia which is baseline for the patient. His platelets are noted to be elevated but again, this is baseline for the patient. Elevated creatinine which is improved from most recent evaluation. patient has never been on dialysis. Troponin is less than 0.02. Reevaluated the patient discussed with family. At this time, the person who watched the at that is present. He reports that the patient cannot front of the truck, sitting upright position became weak and went to his knees. He reports he was able to maintain the position eventually go back to a standing position. Is after 15 to 20 minutes standing in upright position at the patient again became suddenly weak, went to his knees and had a syncopal episode, losing consciousness. Patient then awoke and began vomiting. Is very different from the initial story that I got from the patient, patient reports that his symptoms completely resolved while in the ambulance on the way here. States that he continues to feel well. This Is making more concerning for more serious issues such as arrhythmia or pulmonary embolism. Concerned that a d-dimer will be falsely elevated in this patient with his medical history hesitant to obtain this test. Patient is unable to undergo CT with contrast secondary to his renal function, will likely need perfusion scan. He will require admission for continued observation and continued testing. Discussed this with the patient and his family are in agreement. Will obtain chest x-ray and head CT, will consult with hospitalist. Consulted with Dr. Mayen who agreed to admit the patient for observation and continued workup after syncopal episode. HPI General Mode of arrival: EMS . Date/Time Provider Initiated Documentation: 10/02/18 14:02 . Limitations to Documentation: no limitations . Information obtained by: patient, family, EMS and RN notes reviewed . HPI Narrative: Patient is a 63 year old male, well known to myself, brought in via EMS to clinic today for evaluation of a syncopal episode. Patient reports that he was planned working on a car, had been laying underneath that when he stood up to a standing position and suddenly became dizzy and like I did not have enough oxygen to my brain. States that he then went to his knees and later woke up on the ground. States that the symptoms resolved. Currently feeling quite well. Denies any headache, no visual change, no weakness or other neurologic deficit. He denies any chest pain, palpitations or shortness of breath. Patient has history of CHF, stage V chronic kidney disease, bladder cancer with metastasis, and STEMI cardiomyopathy,, COPD. Patient is status post total cystectomy and prostatectomy. Related Data Home Medications Medication Instructions Recorded Confirmed atorvastatin [Lipitor] 80 mg PO DAILY 12/27/17 10/02/18 carvedilol 3.125 mg tablet 12.5 mg PO BID tab 04/15/18 10/02/18 nicotine (polacrilex) 2 mg gum 2 mg BC Q1H #100 each 07/05/18 10/02/18 nicotine 14 mg/24 hr daily 1 patch TD Q24H #30 each 09/20/18 10/02/18 transdermal patch oxycodone 15 mg tablet,oral ONLY 15 mg PO BID #60 tab MDD 30 09/28/18 10/02/18 (not feeding tubes) Previous Rx's Medication Instructions Recorded nicotine (polacrilex) 2 mg gum 2 mg BC Q1H #100 each 07/05/18 nicotine 14 mg/24 hr daily 1 patch TD Q24H #30 each 09/20/18 transdermal patch oxycodone 15 mg tablet,oral ONLY 15 mg PO BID #60 tab MDD 30 09/28/18 (not feeding tubes) Allergies Allergy/AdvReac Type Severity Reaction Status Date / Time Sulfa (Sulfonamide Allergy Intermediate deathly Verified 10/02/18 13:58 Antibiotics) sick and rash metoprolol AdvReac Intermediate Itching Verified 10/02/18 13:58 sodium bicarbonate AdvReac Intermediate stomach Verified 10/02/18 13:58 burning, vomitting General Stated Complaint: Dizzy/Sync [place]: 3 Review of Systems Review of Systems All systems reviewed & are unremarkable except as noted in HPI and below Constitutional Reports as per HPI, Denies chills, Denies fever(s), Denies headache(s), Denies lethargy and Denies poor appetite Eyes Denies change in vision ENT Denies dizziness and Denies headache(s) Cardiovascular Reports as per HPI, Denies dyspnea and Denies dyspnea on exertion Respiratory Reports as per HPI, Denies chest congestion, Denies cough, Denies pain on inspiration, Denies pain with cough, Denies dyspnea, Denies dyspnea on exertion and Denies wheezing Gastrointestinal Reports as per HPI, Denies abdominal pain, Denies diarrhea, Denies nausea and Denies vomiting Genitourinary Denies system reviewed and no additional complaints, except as docu (denies change in urinary habits) Musculoskeletal Reports as per HPI and Denies back pain Integumentary/Breasts Reports as per HPI and Denies rash Neurologic Reports as per HPI, Denies dizziness and Denies headache(s) Allergic/Immunologic Denies wheezing PFSH Medical History Cigarette smoker one half pack a day or less (Chronic) 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) Acute sinus infection (Acute) Osteoarthritis (Chronic) Palliative care patient (Chronic) CHF (congestive heart failure) (Chronic) Chronic kidney disease, stage 5 (Chronic) Bladder cancer (Chronic) Symptomatic anemia (Acute) ASCVD (arteriosclerotic cardiovascular disease) (Acute) Bladder mass (Acute) CKD (chronic kidney disease) (Acute) Cardiomyopathy (Acute) Emphysema, unspecified (Acute) Uremia, acute (Acute) Anemia (Chronic) Surgical History History of ankle surgery (Acute) History of biopsy of bladder (Acute) Previous back surgery (Acute) H/O prostatectomy (Chronic) H/O total cystectomy (Chronic) Social History Smoking/Tobacco Use Status: Current every day Tobacco Type: cigarettes Tobacco: How many years used: 50 Quit status: considering quitting Counseling given: support program and counseling >3 minutes Alcohol Intake: former Drug use: Occasionally Substance use type: marijuana Adopted: No Caregiver/Support person: Yes Foster care: No Household members: spouse and other Details: living with - 8 years Housing: house Number of Children: 5 number of grandchildren: 11 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, [employer], 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, 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 Sexually active: No What type of physical activity do you participate in: none Seatbelt use: always Drive intox or ride w/intox bung driver: No Working smoke detector in home: Yes Fire extinguisher in home: No Carbon monox detector in home: Yes Firearms in home: Yes Firearms unloaded and locked: No Do you feel safe at home: Yes Do you feel safe in your relationship?: Yes Exam Const General: cooperative, comfortable, no acute distress, well developed and ill appearing chronically Nutritional Appearance: cachectic and thin Orientation: alert, awake and oriented x3 HENMT Head: normal to inspection, no palpable skull fracture, normocephalic and atraumatic Ears: hearing grossly normal bilaterally Mouth: mucous membranes dry (patietn appears dry) Neck Neck: normal visual inspection, full ROM and no meningeal signs Chest Chest: normal inspection of the chest, normal palpation of entire chest wall and no crepitus Resp Effort & Inspection: normal respiratory effort, able to speak in complete sentences and no respiratory distress Auscultation: clear to auscultation bilaterally, no rales, no rhonchi and no wheezes Cardio Rate: regular rate Rhythm: regular rhythm Heart Sounds: S1 normal and S2 normal GI Inspection: normal to inspection (patient has cystostomy, appears to be draining well), no edema and non-distended Palpation: soft, no hepatosplenomegaly, not firm, no guarding, not rigid and nontender Auscultation: normal bowel sounds Back/Spine/Pelvis Back: no CVA tenderness Thoracic/Lumbar Spine: thoracic and lumbar spine normal to inspection Skin General skin exam: no rashes or lesions noted Trauma: no lacerations or abrasions Neuro General: alert, awake and oriented x3 Cognition: normal cognition Speech: speech normal Motor: muscle tone normal throughout, strength 5/5 throughout, no pronator drift, no movement abnormalities noted and no fasciculations Sensory Exam: no sensory deficits noted Extrem General: normal to inspection, normal capillary refill, no pedal edema, no calf tenderness and normal gait Psych Appearance: grossly normal and well kempt Mental Status: mental status grossly normal Speech and Movement: speech and movement normal Course Vital Signs Temperature 36.7 C 10/02/18 13:56 Pulse 86 10/02/18 13:56 Respiratory Rate 15 10/02/18 13:56 Blood Pressure 157/106 H 10/02/18 13:56 Pulse Oximetry 96 10/02/18 13:56 Temperature 36.7 C 10/02/18 13:56 Temperature Source Skin 10/02/18 13:56 Pulse 86 10/02/18 13:56 Respiratory Rate 15 10/02/18 13:56 Respiratory Effort 10/02/18 13:59 Blood Pressure 157/106 H 10/02/18 13:56 Blood Pressure Position Sitting 10/02/18 13:56 Pulse Oximetry 96 10/02/18 13:56 Oxygen Delivery Method Room Air 10/02/18 13:56 Oxygen Flow Rate 0 10/02/18 13:56 Pain Level 0 10/02/18 13:56
--- NOTE | 2018-10-02 16:33 | DI.VRAD_ITS ---
EXAM: CT Head Without Contrast EXAM DATE/TIME: 10/02/2018 3:33 PM CLINICAL HISTORY: 63 years old, male; Signs and symptoms; Syncope and collapse TECHNIQUE: Imaging protocol: Axial computed tomography images of the head without contrast. Coronal and sagittal reformatted images were created and reviewed. COMPARISON: No relevant prior studies available. FINDINGS: Brain: No intracranial hemorrhage or extra-axial fluid collection. No evidence of mass effect or midline shift. Dorsey-white matter differentiation is normal. Ventricles: Prominence of the ventricles and sulci, most likely attributed to parenchymal volume loss. Bones/joints: Small chronic right lamina papyracea fracture. No acute fracture. Sinuses: Unremarkable as visualized. Mastoid air cells: Unremarkable. Soft tissues: Unremarkable. IMPRESSION: 1. No acute intracranial pathology. 2. Other chronic findings, as above. Dictated and Authenticated by: Justin Osorio MD. Ordering:EMY Farley MD
--- NOTE | 2018-10-02 16:34 | DI.VRAD_ITS ---
EXAM: XR Chest, 2 Views EXAM DATE/TIME: 10/02/2018 3:40 PM CLINICAL HISTORY: 63 years old, male; Signs and symptoms; Other: Dizziness, syncope TECHNIQUE: Imaging protocol: XR of the chest, 2 views. COMPARISON: SC XR PORTABLE CHEST AP 02/22/2018 8:06 PM FINDINGS: Lungs: No focal areas of consolidation. Pleural space: No pleural effusion or pneumothorax. Heart/Mediastinum: Cardiac and mediastinal silhouettes are unremarkable. Bones/joints: No acute osseus lesion or fracture. IMPRESSION: No acute cardiopulmonary pathology. Dictated and Authenticated by: Justin Osorio MD. Ordering:EMY Farley MD
--- NOTE | 2018-10-02 17:19 | HPE_ITS ---
Date of service: 10/02/18 Time of Service: 17:19 Assessment and Plan (1) Episode of syncope: Current visit: Yes Status: Chronic Etiology on clear. Will monitor on tele, provide gentle IVF. R/o ACS. Repeat EKG in am. Obtain echo, US carotids - I spoke with the patient whether or not he is interested in obtaining these studies, and he said yes. I do not feel that PE is high on differential for this patient. If workup is completed tomorrow and is negative, the patient will return home tomorrow with a cardiac event monitor. (2) Chronic kidney disease, stage 5: Current visit: No Status: Chronic Today, his labs are actually closer to stage 4. He continues to make urine. Appears dehydrated at this time. Will trial gentle IVF. Avoid nephrotoxic agents. Renal diet. (3) Dehydration: Current visit: No Status: Acute As above (4) Bladder cancer: Current visit: No Status: Chronic s/p cystoprostatectomy/urostomy. F/u with [facility] oncology as oupatient (5) Cigarette smoker one half pack a day or less: Current visit: No Status: Chronic Provide nicotine replacement therapy. This has been a struggle for him (6) Chronic pain due to neoplasm: Current visit: No Status: Chronic Continue oxycodone prn (7) Discharge planning issues: Current visit: Yes Status: Acute Full code - code status again discussed with patient (8) DVT prophylaxis: Current visit: Yes Status: Acute SCDs + TEDs. Avoid chemical DVT ppx due to recently reported hematuria History of Present Illness Chief Complaint: I fainted Narrative: Mr Rosas is a 63 year old male with h/o metastatic bladder cancer s/p radical cystoprostatectomy/cystostomy wit h known metastases to the lungs, as well as h/o CKD stage 5, not on HD, chronic pain, tobacco abuse, who had a near syncopal episode this morning followed by a true syncopal event. Per patient's description, he was working under his uncle's truck this morning, got up to talk to him and then, about 15 minutes later, all of a sudden felt like [his] brain wasn't getting enough blood flow, by which he means that he felt lightheaded, dizzy, but denying chest pain, diaphoresis, palpitations, nausea. He felt like he had to get down to the ground, so he got to his knees. He didn't faint, but he didn't feel right, so his family called 911. Meanwhile he attempted to get up again and got lightheaded again, went down to his knees again, but this time he truly fainted. He did not hit his head at any point. He is not sure how long he was unconscious. When he came to it, he vomited what he had just eaten. Denies blood in emetic contents. The patient states that he has been on antibiotics for a sinus infection and a cough (augmentin). He thinks that he got nauseated because of the thick mucuous in his throat. He specifically states that he did not feel nauseated before he fainted and has not had any abdominal pain. He denies productive cough, but has had a continuous cough at home. Denies shortness of breath or leg swelling. He thinks that he has been keeping up with PO fluids. The urostomy output has not changed in color, smell, or volume recently, but a week ago, before he went on antibi otics, he did see that his urine was orange. Review of Systems Review of Systems 12 systems reviewed. Pertinent positives and negatives are as per HPI. PFS Medical History Cigarette smoker one half pack a day or less (Chronic) 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) Acute sinus infection (Acute) Osteoarthritis (Chronic) Palliative care patient (Chronic) CHF (congestive heart failure) (Chronic) Chronic kidney disease, stage 5 (Chronic) Bladder cancer (Chronic) Symptomatic anemia (Acute) ASCVD (arteriosclerotic cardiovascular disease) (Acute) Bladder mass (Acute) CKD (chronic kidney disease) (Acute) Cardiomyopathy (Acute) Emphysema, unspecified (Acute) Uremia, acute (Acute) Anemia (Chronic) Surgical History History of ankle surgery (Acute) History of biopsy of bladder (Acute) Previous back surgery (Acute) H/O prostatectomy (Chronic) H/O total cystectomy (Chronic) Social History Smoking/Tobacco Use Status: Current every day Tobacco Type: cigarettes Tobacco: How many years used: 50 Quit status: considering quitting Counseling given: support program and counseling >3 minutes Alcohol Intake: former Drug use: Occasionally Substance use type: marijuana Adopted: No Caregiver/Support person: Yes Foster care: No Household members: spouse and other Details: living with - 8 years Housing: house Number of Children: 5 number of grandchildren: 11 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, [employer], 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, 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 Sexually active: No What type of physical activity do you participate in: none Seatbelt use: always Drive intox or ride w/intox steam train driver: No Working smoke detector in home: Yes Fire extinguisher in home: No Carbon monox detector in home: Yes Firearms in home: Yes Firearms unloaded and locked: No Do you feel safe at home: Yes Do you feel safe in your relationship?: Yes Meds Home Medications Medication Instructions Recorded Confirmed Type atorvastatin [Lipitor] 80 mg PO DAILY 12/27/17 10/02/18 History carvedilol 3.125 mg tablet 12.5 mg PO BID tab 04/15/18 10/02/18 History nicotine (polacrilex) 2 mg gum 2 mg BC Q1H #100 each 07/05/18 10/02/18 Rx nicotine 14 mg/24 hr daily 1 patch TD Q24H #30 each 09/20/18 10/02/18 Rx transdermal patch oxycodone 15 mg tablet,oral ONLY 15 mg PO BID #60 tab MDD 30 09/28/18 10/02/18 Rx (not feeding tubes) Allergies Allergy/AdvReac Type Severity Reaction Status Date / Time Sulfa (Sulfonamide Allergy Intermediate deathly Verified 10/02/18 13:58 Antibiotics) sick and rash metoprolol AdvReac Intermediate Itching Verified 10/02/18 13:58 sodium bicarbonate AdvReac Intermediate stomach Verified 10/02/18 13:58 burning, vomitting Exam Narrative Exam Narrative: General: Very pleasant, cachectic middle-aged male, appears much older than his stated age, in great spirits, laughing and joking, looks dehydrated Neurological: A&OX3, no focal deficits Psychiatric: appropriate speech pattern/content Skin: dry, no lesions noted HEENT: Atraumatic, normocephalic, EOMI, dry MM, no goiter or JVD Cardiovascular: RRR, no m/r/g Lungs: Diminished breath sounds B Gastrointestinal: abdomen is soft, nontender, nondistended; urostomy with pale yellow urine Genitourinary: has a urostomy Extremities: no e/c/c BLE's, trace pedal pulses; BLE symmetric Results Imaging Additional studies: CT head without contrast: 1. No acute intracranial pathology. 2. Other chronic findings, as above. CXR: No acute cardiopulmonary pathology. EKG, NSR, HR 87, no acute ischemia, nonspecific ST segment abnormality Labs : 10/02/18 14:00 10/02/18 14:00 Laboratory Results - last 24 hr 10/02/18 10/02/18 14:00 14:00 WBC 5.46 RBC 3.62 L Hgb 11.2 L Hct 34.6 L MCV 95.6 H MCH 30.9 MCHC 32.4 RDW 13.9 Plt Count 407 H MPV 9.6 Immature Gran % 0.2 Neutrophils % 66.0 Lymphocytes % 22.0 Monocytes % 8.4 Eosinophils % 2.7 Basophils % 0.7 Absolute Neutrophils 3.60 Absolute Lymphocytes 1.20 Absolute Monocytes 0.46 Absolute Eosinophils 0.15 Absolute Basophils 0.04 Sodium 139 Potassium 4.4 Chloride 104 Carbon Dioxide 26.7 Anion Gap 8.3 BUN 39 H Creatinine 3.75 H* Estimated GFR/1.73 m2 16.42 Glucose 144 H Calcium 8.7 Magnesium 2.0 Total Bilirubin 0.3 AST 9 L ALT 13 Alkaline Phosphatase 94 Troponin I < 0.02 Total Protein 6.9 Albumin 2.9 L TSH 3.37 Last Vital Signs Temp 36.1 C L 10/02/18 16:46 Pulse 83 10/02/18 16:46 Resp 19 10/02/18 16:46 BP 180/110 H 10/02/18 16:46 Pulse Ox 95 10/02/18 16:46
[2018-10-02] MEDS: Nicotine 14 MG/24 HR PATCH TD (17:41)
[2018-10-02] MEDS: amLODIPine 5 MG TAB PO (17:41)
[2018-10-02] MEDS: Normal Saline 1,000 ML 100 ML IV (17:43)
[2018-10-02] MEDS: Carvedilol 3.125 MG TAB 12.5 MG PO (19:56)
[2018-10-02] MEDS: Atorvastatin 40 MG TAB 80 MG PO (19:57)
[2018-10-02 22:18] LABS: Troponin I 0.02 ng/mL (0.00-0.06)
[2018-10-02 22:41] LABS: Bilirubin Negative (Negative); Blood Moderate (Negative); Clarity Clear; Glucose Negative (Negative); Ketones Negative (Negative); Leukocyte Esterase Large (Negative); Nitrite Positive (Negative); Urobilinogen 0.2 EU/dL (Up TO 0.2); pH 7.5 (5-8)
[2018-10-02 22:54] LABS: Bacteria Many HPF (Negative); C & S Indicated? Yes; Casts Negative LPF (Negative); Crystals Negative HPF (Negative); Epithelial Cells Rare HPF (Negative); Mucus Negative (Negative); WBC >50 HPF (0-5)
[2018-10-03] VITALS (9 sets, daily range): BP systolic 140–172; BP diastolic 77–105; PULSE 72–81; RESP 18–20; TEMP 36.4–37.1; O2SAT 95–97
[2018-10-03] MEDS: Normal Saline 1,000 ML 75 ML IV (02:25)
[2018-10-03 07:04] LABS: Absolute Basophil Count 0.06 k/cumm (0.0-0.2); Absolute Eosinophil Count 0.21 k/cumm (0.0-0.7); Absolute Lymphocyte Count 1.39 k/cumm (1.2-3.4); Absolute Monocyte Count 0.67 k/cumm (0.11-0.7); Absolute Neutrophil Count 3.64 k/cumm (1.2-6.7); Eosinophils % 3.5; HCT 34.7 % (40.0-50.0); HGB 10.9 g/dL (13.5-17.5); Lymphocytes % 23.3; Mean Corp. HGB Concentration 31.4 g/dL (32.0-36.0); Mean Corpuscular Hemoglobin 30.3 pg (27.0-33.0); Mean Corpuscular Volume 96.4 fL (80-95); Mean Platelet Volume 9.8 fL (8.0-11.0); Monocytes % 11.2; Platelet Count 354 x1000/uL (130-400); RBC Distribution Width 14.1 % (11.8-14.1); White Blood Cell Count 5.97 k/cumm (4.4-10.8)
[2018-10-03 07:37] LABS: Anion Gap 9.1 mmol/L (3-11); BUN 38 mg/dL (7-18); CO2 23.9 mmol/L (21.0-32.0); CREATININE 3.48 mg/dL (0.70-1.30); Calcium 8.3 mg/dL (8.5-10.1); Chloride 108 mmol/L (98-107); Cholesterol 145 mg/dL (50-200); Glucose 100 mg/dL (70-100); HDL Cholesterol 30 mg/dL (40-60); LDL CHOLESTEROL 99 mg/dL (<100); Magnesium 1.9 mg/dL (1.8-2.4); Potassium 4.4 mmol/L (3.5-5.1); Sodium 141 mmol/L (136-145); Triglyceride 174 mg/dL (30-150); Troponin I 0.02 ng/mL (0.00-0.06)
[2018-10-03] MEDS: amLODIPine 5 MG TAB PO (08:19)
[2018-10-03] MEDS: Carvedilol 3.125 MG TAB 12.5 MG PO (09:02)
--- NOTE | 2018-10-03 09:52 | PDOC.CMIN ---
- If Service Date Differs Date of service: 10/03/18 Time of Service: 09:52 Care Management Initial Assess REASON FOR HOSPITALIZATION:: Episode of syncope PAST MEDICAL HISTORY/PAST SURGICAL HISTORY:: Cigarette smoker one half pack a day or less (Chronic). 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 Acute sinus infection (Acute). Osteoarthritis (Chronic). Palliative care patient (Chronic). CHF (congestive heart failure) (Chronic). Chronic kidney disease, stage 5 (Chronic). Bladder cancer (Chronic). Symptomatic anemia (Acute). ASCVD (arteriosclerotic cardiovascular disease) (Acute). Bladder mass (Acute). CKD (chronic kidney disease) (Acute). Cardiomyopathy (Acute). Emphysema, unspecified (Acute). Uremia, acute (Acute). Anemia (Chronic). History of ankle surgery (Acute). History of biopsy of bladder (Acute). Previous back surgery (Acute). H/O prostatectomy (Chronic). H/O total cystectomy (Chronic) PREVIOUS FUNCTIONAL STATUS/SOCIAL/FAMILY SUPPORTS:: Cornelio resides with his 7 y/o son in [place], as well as his ex Brittany. 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 Cornelio states that he drives at baseline and manages ADL's. CURRENT FUNCTIONAL STATUS:: Currently Cornelio is lying in bed when this medical writer visits. He is pleasant and receptive to discussion. Cornelio reports that he is hopeful to be discharged home today ADVANCE DIRECTIVES:: None on file Has patient been provided with information about the portal?: Yes Did the patient sign up for the portal?: No CODE STATUS:: Full Code INSURANCE COVERAGE / FINANCIAL ISSUES:: [employer] CURRENT HOME/COMMUNITY SERVICES/EQUIPMENT:: Currently Cornelio has no services or medical equipment in the community. PRIMARY CARE PHYSICIAN:: Dr. Zepeda POTENTIAL DISCHARGE NEEDS:: F/U appointment with PCP PATIENT/FAMILY EDUCATION NEEDS:: Review DC instructions, any limitations, and ongoing DC planning discussion. Discuss 'Ask Me Three' ANTICIPATED BARRIERS TO DISCHARGE:: None identified at this time TRANSPORTATION:: Via private vehicle with uncle PLAN:: Cornelio will return home with no anticipated services. He will F/U with PCP and plan of care as prescribed. Cornelio's uncle will transport when ready.
--- NOTE | 2018-10-03 10:02 | INITIAL_ITS ---
- If Service Date Differs Date of service: 10/03/18 Time of Service: 09:52 Care Management Initial Assess REASON FOR HOSPITALIZATION:: Episode of syncope PAST MEDICAL HISTORY/PAST SURGICAL HISTORY:: Cigarette smoker one half pack a day or less (Chronic). 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 Acute sinus infection (Acute). Osteoarthritis (Chronic). Palliative care patient (Chronic). CHF (congestive heart failure) (Chronic). Chronic kidney disease, stage 5 (Chronic). Bladder cancer (Chronic). Symptomatic anemia (Acute). ASCVD (arteriosclerotic cardiovascular disease) (Acute). Bladder mass (Acute). CKD (chronic kidney disease) (Acute). Cardiomyopathy (Acute). Emphysema, unspecified (Acute). Uremia, acute (Acute). Anemia (Chronic). History of ankle surgery (Acute). History of biopsy of bladder (Acute). Previous back surgery (Acute). H/O prostatectomy (Chronic). H/O total cystectomy (Chronic) PREVIOUS FUNCTIONAL STATUS/SOCIAL/FAMILY SUPPORTS:: Cornelio resides with his 7 y/o son in [place], as well as his ex Brittany. 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 Cornelio states that he drives at baseline and manages ADL's. CURRENT FUNCTIONAL STATUS:: Currently Cornelio is lying in bed when this service writer advisor visits. He is pleasant and receptive to discussion. Cornelio reports that he is hopeful to be discharged home today ADVANCE DIRECTIVES:: None on file Has patient been provided with information about the portal?: Yes Did the patient sign up for the portal?: No CODE STATUS:: Full Code INSURANCE COVERAGE / FINANCIAL ISSUES:: [employer]ACHNA CURRENT HOME/COMMUNITY SERVICES/EQUIPMENT:: Currently Cornelio has no services or medical equipment in the community. PRIMARY CARE PHYSICIAN:: Dr. Zepeda POTENTIAL DISCHARGE NEEDS:: F/U appointment with PCP PATIENT/FAMILY EDUCATION NEEDS:: Review DC instructions, any limitations, and ongoing DC planning discussion. Discuss 'Ask Me Three' ANTICIPATED BARRIERS TO DISCHARGE:: None identified at this time TRANSPORTATION:: Via private vehicle with uncle PLAN:: Cornelio will return home with no anticipated services. He will F/U with PCP and plan of care as prescribed. Cornelio's uncle will transport when ready.
--- NOTE | 2018-10-03 12:30 | MERGE_ITS ---
*[facility]* *[facility]* [address] [place] [address] Date of study: 10/03/2018 Transthoracic Echocardiography M-mode, complete 2D, complete spectral Doppler, and color Doppler *STUDY CONCLUSIONS* Summary: 1. Left ventricle: The cavity size was normal. The estimated ejection fraction was 60%. There was no evidence of elevated ventricular filling pressure by Doppler parameters. 2. Aortic valve: There was mild regurgitation. 3. Mitral valve: There was mild to moderate regurgitation. 4. Right ventricle: The cavity size was normal. Wall thickness was normal. Systolic function was normal. 5. Atrial septum: No defect or patent foramen ovale was identified. 6. Pulmonary arteries: Pulmonary systolic pressure was in the range of 30mm Hg to 40mm Hg. 7. Inferior vena cava: The vessel was normal in size. The respirophasic diameter changes were in the normal range (greater than or equal to 50%), consistent with normal central venous pressure. *PATIENT PRESENTATION* Height: 172.7cm ((68in) ) S/D Pressure: 141 / 101 Weight: 59.9kg ((131.7lb) ) BSA: 1.69m^2 Test start time: 12:40 PM. Test stop time: 01:30 PM. PERFORMING Unknown PERFORMING [facility] CONSULTING None, None TRACK CAR OPERATOR RT Ngoc (Andrea)(CT), CS ORDERING Alexandria Mayen REFERRING Alexandria Mayen *PROCEDURE DATA* Procedure information: The patient was identified by two identifiers. This study was interpreted by [facility]. Pertinent images and digital data are archived for permanent storage and are available for subsequent review. Comparison was made to the study of 12/21/2017. Study status: Routine. Transthoracic echocardiography. M-mode, complete 2D, complete spectral Doppler, and color Doppler. A Transthoracic Echocardiogram was performed. Scanning was performed from the parasternal, apical, subcostal, and suprasternal notch acoustic windows. Images were obtained using an [id number] cardiac ultrasound machine. Image quality was adequate. Study completion: The patient tolerated the procedure well. History: PMH: Syncope. *CARDIAC ANATOMY* Left ventricle: The cavity size was normal. The estimated ejection fraction was 60%. There was no evidence of elevated ventricular filling pressure by Doppler parameters. Aortic valve: Trileaflet. Doppler: There was no stenosis. There was mild regurgitation. VTI ratio of LVOT to aortic valve: 0.79. Valve area (VTI): 2.6cm^2. Indexed valve area (VTI): 1.5cm^2/m^2. Peak velocity ratio of LVOT to aortic valve: 0.77. Valve area (Vmax): 2.5cm^2. Indexed valve area (Vmax): 1.5cm^2/m^2. Mean velocity ratio of LVOT to aortic valve: 0.75. Valve area (Vmean): 2.4cm^2. Indexed valve area (Vmean): 1.4cm^2/m^2. Mean gradient (S): 2.8mm Hg. Peak gradient (S): 4.6mm Hg. Aorta: Aortic root: The aortic root was normal in size. Mitral valve: Doppler: There was no evidence for stenosis. There was mild to moderate regurgitation. Valve area by pressure half-time: 4.1cm^2. Indexed valve area by pressure half-time: 2.4cm^2/m^2. Left atrium: The atrium was normal in size. Atrial septum: No defect or patent foramen ovale was identified. Right ventricle: The cavity size was normal. Wall thickness was normal. Systolic function was normal. Pulmonic valve: Doppler: There was no evidence for stenosis. There was no significant regurgitation. Peak gradient (S): 2.9mm Hg. Tricuspid valve: Doppler: There was mild regurgitation. Pulmonary artery: Poorly visualized. Pulmonary systolic pressure was in the range of 30mm Hg to 40mm Hg. Right atrium: The atrium was normal in size. Pericardium: There was no pericardial effusion. Systemic veins: Inferior vena cava: The vessel was normal in size. The respirophasic diameter changes were in the normal range (greater than or equal to 50%), consistent with normal central venous pressure. Measurements Left ventricle Value 12/21/2017 Reference LV ID, ED, PLAX 4.7 cm 5.2 3.5 - 6.0 LV ID, ES, PLAX 3.6 cm 4.1 2.1 - 4.0 LV PW thickness, ED, PLAX 0.9 cm 1.0 --------- LV end-diastolic volume, 59 ml 104 --------- 1-p A2C LV ejection fraction, 1-p 42 % 22 --------- A2C LV end-diastolic volume, 93 ml 129 --------- 1-p A4C LV ejection fraction, 1-p 52 % 39 --------- A4C LV e', lateral 0.096 m/sec 0.068 --------- LV E/e', lateral 7 11 --------- LV e', medial 0.069 m/sec 0.054 --------- LV E/e', medial 10 14 --------- LV e', average 0.082 m/sec 0.061 --------- LV E/e', average 8 13 --------- Ventricular septum Value 12/21/2017 Reference IVS thickness, ED, PLAX 1.1 cm 1.2 --------- LVOT Value 12/21/2017 Reference LVOT ID, A-P 2.0 cm 2.0 --------- LVOT area 3.3 cm^2 3.2 --------- LVOT peak velocity, S 0.82 m/sec 0.72 --------- LVOT mean velocity, S 0.61 m/sec 0.46 --------- LVOT VTI, S 18.2 cm 13.7 --------- LVOT peak gradient, S 2.7 mm Hg 2.1 --------- LVOT mean gradient, S 1.6 mm Hg 1 --------- Stroke volume (SV), LVOT DP 59 ml 44 --------- Stroke index (SV/bsa), LVOT 35 ml/m^2 26 --------- DP Aortic valve Value 12/21/2017 Reference Aortic valve peak velocity, 1.1 m/sec 0.9 --------- S Aortic valve mean velocity, 0.81 m/sec 0.73 --------- S Aortic valve VTI, S 23.0 cm 15.9 --------- Aortic mean gradient, S 2.8 mm Hg 2.2 --------- Aortic peak gradient, S 4.6 mm Hg 3.5 --------- VTI ratio, LVOT/AV 0.79 0.86 --------- Aortic valve area, VTI 2.6 cm^2 2.8 --------- Velocity ratio, peak, 0.77 0.77 --------- LVOT/AV Aortic valve area, peak 2.5 cm^2 2.5 --------- velocity Velocity ratio, mean, 0.75 0.64 --------- LVOT/AV Aortic valve area, mean 2.4 cm^2 2.1 --------- velocity Aortic valve area/bsa, mean 1.4 cm^2/m^2 1.2 --------- velocity Aorta Value 12/21/2017 Reference Aortic root ID, ED 3.3 cm 3.3 --------- Left atrium Value 12/21/2017 Reference LA ID, A-P, ES 1.7 cm 3.6 --------- LA ID/bsa, A-P 1.0 cm/m^2 2.1 <=2.2 LA area, ES, A2C 14 cm^2 21 --------- LA/aortic root ratio 0.52 1.09 --------- Mitral valve Value 12/21/2017 Reference Mitral E-wave peak velocity 0.68 m/sec 0.77 --------- Mitral A-wave peak velocity 0.62 m/sec 0.72 --------- Mitral deceleration time 187 ms 143 150 - 230 Mitral pressure half-time 54 ms 42 --------- Mitral E/A ratio, peak 1.09 1.07 --------- Mitral valve area, PHT, DP 4.1 cm^2 5.3 --------- Tricuspid valve Value 12/21/2017 Reference Tricuspid regurg peak 2.8 m/sec 2.4 --------- velocity Tricuspid peak RV-RA 31.6 mm Hg 23.4 --------- gradient Pulmonic valve Value 12/21/2017 Reference Pulmonic peak gradient, S 2.9 mm Hg 3.6 --------- Legend: (L) and (H) daniella values outside specified reference range. I have personally reviewed the images and have reviewed and edited the reported findings. Electronically signed by Bryce Wright MD 10/03/2018 17:24
--- NOTE | 2018-10-03 14:20 | DI.US_ITS ---
SYMPTOMS/DIAGNOSIS: SYNCOPE CAROTID ULTRASOUND: There is a mild amount of plaque in the common carotid bulbs, right greater than left. There is a small amount of plaque in the proximal right internal carotid artery. No velocity elevations are seen. The findings are consistent with a less than 50% stenosis. The vertebral arteries show antegrade flow. A few small benign-appearing nodules are noted in the thyroid. IMPRESSION: Mild amount of calcific plaque, greatest in the right common carotid bulb. No significant internal carotid artery stenosis.
--- NOTE | 2018-10-03 17:46 | W.PM.DS.N ---
Date of service: 10/03/18 Time of Service: 17:46 DS: Diagnosis Discharge Diagnosis (1) Episode of syncope: Status: Chronic (2) Chronic kidney disease, stage 5: Status: Chronic (3) Dehydration: Status: Acute (4) Bladder cancer: Status: Chronic (5) Cigarette smoker one half pack a day or less: Status: Chronic (6) Chronic pain due to neoplasm: Status: Chronic (7) Pulmonary hypertension: Status: Chronic Discharge Plan Disposition Patient Disposition: HOME Condition: Stable Discharge Details Chief Complaint: Dizzy/Sync Reason For Visit: SYNCOPAL EPISODE Admit Date/Time: 10/02/18 15:59 Admit Provider: Alexandria Mayen Attending Provider: Alexandria Mayen Primary Care Provider: None,None ED Provider: [facility] Course Hospital Course: Mr Rosas is a 63 year old male with PMHx of metastatic bladder cancer s/p radical cystoprostatectomy/cystostomy with known metastases to the lungs, as well as h/o CKD stage 5, not on HD, chronic pain, tobacco abuse, observed on [facility] hospitalist service overnight from 10/02/18 to 10/03/18 after a near-syncopal episode followed by a true syncopal episode on the day of [facility]. He was not orthostatic. He did not have an acute coronary syndrome and there was no evidence of arrhythmias on his telemetry while he was an inpatient here. The patient is not interested in having outpatient event monitor. We discussed the regular workup for syncope, and he did agree to have an ultrasound of his carotids (negative for hemodynamically significant stenosis) and an echo. The echo revealed LVEF of 60%, mild aortic regurgitation, mild to moderate mitral regurgitation, normal RV function and size, but the patient was noted to have moderate pulmonary hypertension with PA systolic pressures of 30-40 mmHg. I discussed this with the patient - he never had any leg swelling or pain, and he did not have any chest pain. At this point, he is interested in going home today and he is not interested in obtaining a follow up study to rule out a PE - which, in my opinion, is reasonable. The patient is being discharged home today with follow up with his PCP and palliative care. He is medically stable for discharge. Home Meds and New Rx's Prescriptions: Continued nicotine (polacrilex) [Nicorette] 2 mg gum 2 mg BC Q1H Qty: 100 RF: 2 nicotine 14 mg/24 hr patch 24 hour 1 patch TD Q24H Qty: 30 RF: 1 carvedilol [Coreg] 3.125 mg tablet 12.5 mg PO BID RF: 0 oxycodone 15 mg tablet, oral only 15 mg PO BID MDD 30 Qty: 60 RF: 0 atorvastatin [Lipitor] 80 MG tablet 80 mg PO DAILY RF: 0 Discharge Instructions Instructions: Syncope (DC) Additional Instructions: Return to the hospital if you faint again, if you have any fever, bleeding, chest pain, or shortness of breath. If you change your mind and decide you are interested in wearing the heart monitor or having a test to rule out a blood clot in the lungs, please, inform your PCP. Referrals: Tracy Roberson MD [ [facility] STAFF PHYSICIAN] - Activity:: Activity as Tolerated Equipment/Supplies:: No Equipment Needed Diet:: Low Sodium Discharge Orders Discharge Orders: Discharge Order (Routine); Ordered 10/03/18 Ordered By: Alexandria Mayen Exam Narrative Exam Narrative: General: Very pleasant, cachectic middle-aged male, appears much older than his stated age, in great spirits, A&Ox3 Neurological: A&OX3, no focal deficits Psychiatric: appropriate speech pattern/content Skin: dry, no lesions noted HEENT: Atraumatic, normocephalic, EOMI, dry MM, no goiter or JVD Cardiovascular: RRR, no m/r/g Lungs: Diminished breath sounds B Gastrointestinal: abdomen is soft, nontender, nondistended; urostomy with pale yellow urine Genitourinary: has a urostomy Extremities: no e/c/c BLE's, trace pedal pulses; BLE symmetric DS: Data Vitals/I&O Vitals and I&O: Vital Signs Temperature 37.1 C 10/03/18 16:02 Temperature Source Tympanic 10/03/18 16:02 Pulse 76 10/03/18 16:02 Pulse Rhythm Regular 10/03/18 16:17 Respiratory Rate 19 10/03/18 16:02 Respiratory Effort 10/03/18 16:17 Respiratory Depth Normal 10/03/18 16:17 Respiratory Pattern Normal 10/03/18 16:17 Blood Pressure 161/91 H 10/03/18 16:22 Blood Pressure Position Sitting 10/02/18 13:56 Pulse Oximetry 97 10/03/18 16:02 Oxygen Delivery Method Room Air 10/03/18 16:02 Oxygen Flow Rate 0 10/03/18 16:02 Pain Level 0 10/03/18 16:02 Comment 10/03/18 14:25 Intake & Output 10/02/18 10/03/18 10/03/18 23:59 11:59 23:59 Intake Total 480 / 480 1828.75 / 2556.25 727.5 / 2556.25 Output Total 750 / 750 Balance 480 / 480 1078.75 / 1806.25 727.5 / 1806.25 Weight 60 kg 59 kg Intake: IV 1138.75 / 1626.25 487.5 / 1626.25 Oral 480 / 480 690 / 930 240 / 930 Output: Urine 750 / 750 Other: Urine Color Yellow Urine Appearance Clear Clear Clear Urine Odor Normal Stool Size Moderate Stool Characteristics Soft Formed Voiding Methods Toilet Completed studies during hospitalization [Text1]: CXR 10/02/18: Emphysematous and fibrotic changes. No acute abnormality. CT head w/o contrast 10/02/18: No acute abnormality. Echo 10/03/18: 1. Left ventricle: The cavity size was normal. The estimated ejection fraction was 60%. There was no evidence of elevated ventricular filling pressure by Doppler parameters. 2. Aortic valve: There was mild regurgitation. 3. Mitral valve: There was mild to moderate regurgitation. 4. Right ventricle: The cavity size was normal. Wall thickness was normal. Systolic function was normal. 5. Atrial septum: No defect or patent foramen ovale was identified. 6. Pulmonary arteries: Pulmonary systolic pressure was in the range of 30mm Hg to 40mm Hg. 7. Inferior vena cava: The vessel was normal in size. The respirophasic diameter changes were in the normal range (greater than or equal to 50%), consistent with normal central venous pressure. US carotid 10/03/18: Mild amount of calcific plaque, greatest in the right common carotid bulb. No significant internal carotid artery stenosis. Labs on day of discharge: Labs from last 24 hours 10/03/18 10/03/18 10/02/18 06:35 06:35 22:30 WBC 5.97 RBC 3.60 L Hgb 10.9 L Hct 34.7 L MCV 96.4 H MCH 30.3 MCHC 31.4 L RDW 14.1 Plt Count 354 MPV 9.8 Immature Gran % 0.0 Neutrophils % 61.0 Lymphocytes % 23.3 Monocytes % 11.2 Eosinophils % 3.5 Basophils % 1.0 Absolute Neutrophils 3.64 Absolute Lymphocytes 1.39 Absolute Monocytes 0.67 Absolute Eosinophils 0.21 Absolute Basophils 0.06 Sodium 141 Potassium 4.4 Chloride 108 H Carbon Dioxide 23.9 Anion Gap 9.1 BUN 38 H Creatinine 3.48 H Estimated GFR/1.73 m2 17.90 Glucose 100 Calcium 8.3 L Magnesium 1.9 Troponin I 0.02 Triglycerides 174 H Total Cholesterol 145 LDL Cholesterol Direct 99 HDL Cholesterol 30 L Urine Color Yellow Urine Clarity Clear Urine pH 7.5 Ur Specific [place] 1.020 Urine Protein 100 H Urine Ketones Negative Urine Blood Moderate H Urine Nitrite Positive H Urine Bilirubin Negative Urine Urobilinogen 0.2 Ur Leukocyte Esterase Large H Urine RBC 10-20 H Urine WBC >50 Ur Epithelial Cells Rare Urine Crystals Negative Urine Bacteria Many Urine Casts Negative Urine Mucus Negative Ur Culture Indicated? Yes Urine Glucose Negative 10/02/18 21:58 WBC RBC Hgb Hct MCV MCH MCHC RDW Plt Count MPV Immature Gran % Neutrophils % Lymphocytes % Monocytes % Eosinophils % Basophils % Absolute Neutrophils Absolute Lymphocytes Absolute Monocytes Absolute Eosinophils Absolute Basophils Sodium Potassium Chloride Carbon Dioxide Anion Gap BUN Creatinine Estimated GFR/1.73 m2 Glucose Calcium Magnesium Troponin I 0.02 Triglycerides Total Cholesterol LDL Cholesterol Direct HDL Cholesterol Urine Color Urine Clarity Urine pH Ur Specific [place] Urine Protein Urine Ketones Urine Blood Urine Nitrite Urine Bilirubin Urine Urobilinogen Ur Leukocyte Esterase Urine RBC Urine WBC Ur Epithelial Cells Urine Crystals Urine Bacteria Urine Casts Urine Mucus Ur Culture Indicated? 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) Acute sinus infection (Acute) Osteoarthritis (Chronic) Palliative care patient (Chronic) CHF (congestive heart failure) (Chronic) Chronic kidney disease, stage 5 (Chronic) Bladder cancer (Chronic) Symptomatic anemia (Acute) ASCVD (arteriosclerotic cardiovascular disease) (Acute) Bladder mass (Acute) CKD (chronic kidney disease) (Acute) Cardiomyopathy (Acute) Emphysema, unspecified (Acute) Uremia, acute (Acute) Anemia (Chronic) Surgical History History of ankle surgery (Acute) History of biopsy of bladder (Acute) Previous back surgery (Acute) H/O prostatectomy (Chronic) H/O total cystectomy (Chronic) Social History Smoking/Tobacco Use Status: Current every day Tobacco Type: cigarettes Tobacco: How many years used: 50 Quit status: considering quitting Counseling given: support program and counseling >3 minutes Alcohol Intake: former Drug use: Occasionally Substance use type: marijuana Adopted: No Caregiver/Support person: Yes Foster care: No Household members: spouse and other Details: living with - 8 years Housing: house Number of Children: 5 number of grandchildren: 11 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
--- NOTE | 2018-10-03 17:50 | DSE_ITS ---
Date of service: 10/03/18 Time of Service: 17:46 DS: Diagnosis Discharge Diagnosis (1) Episode of syncope: Status: Chronic (2) Chronic kidney disease, stage 5: Status: Chronic (3) Dehydration: Status: Acute (4) Bladder cancer: Status: Chronic (5) Cigarette smoker one half pack a day or less: Status: Chronic (6) Chronic pain due to neoplasm: Status: Chronic (7) Pulmonary hypertension: Status: Chronic Discharge Plan Disposition Patient Disposition: HOME Condition: Stable Discharge Details Chief Complaint: Dizzy/Sync Reason For Visit: SYNCOPAL EPISODE Admit Date/Time: 10/02/18 15:59 Admit Provider: Alexandria Mayen Attending Provider: Alexandria Mayen Primary Care Provider: None,None ED Provider: Martine Crawley [facility] Course Hospital Course: Mr Rosas is a 63 year old male with PMHx of metastatic bladder cancer s/p radical cystoprostatectomy/cystostomy with known metastases to the lungs, as well as h/o CKD stage 5, not on HD, chronic pain, tobacco abuse, observed on [facility] hospitalist service overnight from 10/02/18 to 10/03/18 after a near-syncopal episode followed by a true syncopal episode on the day of [facility]. He was not orthostatic. He did not have an acute coronary syndrome and there was no evidence of arrhythmias on his telemetry while he was an inpatient here. The patient is not interested in having outpatient event monitor. We discussed the regular workup for syncope, and he did agree to have an ultrasound of his carotids (negative for hemodynamically significant stenosis) and an echo. The echo revealed LVEF of 60%, mild aortic regurgitation, mild to moderate mitral regurgitation, normal RV function and size, but the patient was noted to have moderate pulmonary hypertension with PA systolic pressures of 30-40 mmHg. I discussed this with the patient - he never had any leg swelling or pain, and he did not have any chest pain. At this point, he is interested in going home today and he is not interested in obtaining a follow up study to rule out a PE - which, in my opinion, is reasonable. The patient is being discharged home today with follow up with his PCP and palliative care. He is medically stable for discharge. Home Meds and New Rx's Prescriptions: Continued nicotine (polacrilex) [Nicorette] 2 mg gum 2 mg BC Q1H Qty: 100 RF: 2 nicotine 14 mg/24 hr patch 24 hour 1 patch TD Q24H Qty: 30 RF: 1 carvedilol [Coreg] 3.125 mg tablet 12.5 mg PO BID RF: 0 oxycodone 15 mg tablet, oral only 15 mg PO BID MDD 30 Qty: 60 RF: 0 atorvastatin [Lipitor] 80 MG tablet 80 mg PO DAILY RF: 0 Discharge Instructions Instructions: Syncope (DC) Additional Instructions: Return to the hospital if you faint again, if you have any fever, bleeding, chest pain, or shortness of breath. If you change your mind and decide you are interested in wearing the heart mo nitor or having a test to rule out a blood clot in the lungs, please, inform your PCP. Referrals: Tracy Roberson MD [ [facility] STAFF PHYSICIAN] - Activity:: Activity as Tolerated Equipment/Supplies:: No Equipment Needed Diet:: Low Sodium Discharge Orders Discharge Orders: Discharge Order (Routine); Ordered 10/03/18 Ordered By: Alexandria Mayen Exam Narrative Exam Narrative: General: Very pleasant, cachectic middle-aged male, appears much older than his stated age, in great spirits, A&Ox3 Neurological: A&OX3, no focal deficits Psychiatric: appropriate speech pattern/content Skin: dry, no lesions noted HEENT: Atraumatic, normocephalic, EOMI, dry MM, no goiter or JVD Cardiovascular: RRR, no m/r/g Lungs: Diminished breath sounds B Gastrointestinal: abdomen is soft, nontender, nondistended; urostomy with pale yellow urine Genitourinary: has a urostomy Extremities: no e/c/c BLE's, trace pedal pulses; BLE symmetric DS: Data Vitals/I&O Vitals and I&O: Vital Signs Temperature 37.1 C 10/03/18 16:02 Temperature Source Tympanic 10/03/18 16:02 Pulse 76 10/03/18 16:02 Pulse Rhythm Regular 10/03/18 16:17 Respiratory Rate 19 10/03/18 16:02 Respiratory Effort 10/03/18 16:17 Respiratory Depth Normal 10/03/18 16:17 Respiratory Pattern Normal 10/03/18 16:17 Blood Pressure 161/91 H 10/03/18 16:22 Blood Pressure Position Sitting 10/02/18 13:56 Pulse Oximetry 97 10/03/18 16:02 Oxygen Delivery Method Room Air 10/03/18 16:02 Oxygen Flow Rate 0 10/03/18 16:02 Pain Level 0 10/03/18 16:02 Comment 10/03/18 14:25 Intake & Output 10/02/18 10/03/18 10/03/18 23:59 11:59 23:59 Intake Total 480 / 480 1828.75 / 2556.25 727.5 / 2556.25 Output Total 750 / 750 Balance 480 / 480 1078.75 / 1806.25 727.5 / 1806.25 Weight 60 kg 59 kg Intake: IV 1138.75 / 1626.25 487.5 / 1626.25 Oral 480 / 480 690 / 930 240 / 930 Output: Urine 750 / 750 Other: Urine Color Yellow Urine Appearance Clear Clear Clear Urine Odor Normal Stool Size Moderate Stool Characteristics Soft Formed Voiding Methods Toilet Completed studies during hospitalization [Text1]: CXR 10/02/18: Emphysematous and fibrotic changes. No acute abnormality. CT head w/o contrast 10/02/18: No acute abnormality. Echo 10/03/18: 1. Left ventricle: The cavity size was normal. The estimated ejection fraction was 60%. There was no evidence of elevated ventricular filling pressure by Doppler parameters. 2. Aortic valve: There was mild regurgitation. 3. Mitral valve: There was mild to moderate regurgitation. 4. Right ventricle: The cavity size was normal. Wall thickness was normal. Systolic function was normal. 5. Atrial septum: No defect or patent foramen ovale was identified. 6. Pulmonary arteries: Pulmonary systolic pressure was in the range of 30mm Hg to 40mm Hg. 7. Inferior vena cava: The vessel was normal in size. The respirophasic diameter changes were in the normal range (greater than or equal to 50%), consistent with normal central venous pressure. US carotid 10/03/18: Mild amount of calcific plaque, greatest in the right common carotid bulb. No significant internal carotid artery stenosis. Labs on day of discharge: Labs from last 24 hours 10/03/18 10/03/18 10/02/18 06:35 06:35 22:30 WBC 5.97 RBC 3.60 L Hgb 10.9 L Hct 34.7 L MCV 96.4 H MCH 30.3 MCHC 31.4 L RDW 14.1 Plt Count 354 MPV 9.8 Immature Gran % 0.0 Neutrophils % 61.0 Lymphocytes % 23.3 Monocytes % 11.2 Eosinophils % 3.5 Basophils % 1.0 Absolute Neutrophils 3.64 Absolute Lymphocytes 1.39 Absolute Monocytes 0.67 Absolute Eosinophils 0.21 Absolute Basophils 0.06 Sodium 141 Potassium 4.4 Chloride 108 H Carbon Dioxide 23.9 Anion Gap 9.1 BUN 38 H Creatinine 3.48 H Estimated GFR/1.73 m2 17.90 Glucose 100 Calcium 8.3 L Magnesium 1.9 Troponin I 0.02 Triglycerides 174 H Total Cholesterol 145 LDL Cholesterol Direct 99 HDL Cholesterol 30 L Urine Color Yellow Urine Clarity Clear Urine pH 7.5 Ur Specific [place] 1.020 Urine Protein 100 H Urine Ketones Negative Urine Blood Moderate H Urine Nitrite Positive H Urine Bilirubin Negative Urine Urobilinogen 0.2 Ur Leukocyte Esterase Large H Urine RBC 10-20 H Urine WBC >50 Ur Epithelial Cells Rare Urine Crystals Negative Urine Bacteria Many Urine Casts Negative Urine Mucus Negative Ur Culture Indicated? Yes Urine Glucose Negative 10/02/18 21:58 WBC RBC Hgb Hct MCV MCH MCHC RDW Plt Count MPV Immature Gran % Neutrophils % Lymphocytes % Monocytes % Eosinophils % Basophils % Absolute Neutrophils Absolute Lymphocytes Absolute Monocytes Absolute Eosinophils Absolute Basophils Sodium Potassium Chloride Carbon Dioxide Anion Gap BUN Creatinine Estimated GFR/1.73 m2 Glucose Calcium Magnesium Troponin I 0.02 Triglycerides Total Cholesterol LDL Cholesterol Direct HDL Cholesterol Urine Color Urine Clarity Urine pH Ur Specific [place] Urine Protein Urine Ketones Urine Blood Urine Nitrite Urine Bilirubin Urine Urobilinogen Ur Leukocyte Esterase Urine RBC Urine WBC Ur Epithelial Cells Urine Crystals Urine Bacteria Urine Casts Urine Mucus Ur Culture Indicated? Urine Glucose Preliminary micro results at discharge 10/02/18 22:30 Urine Culture - Preliminary Urine - Reflex from Ua Escherichia coli PFS Medical History Cigarette smoker one half pack a day or less (Chronic) 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) Acute sinus infection (Acute) Osteoarthritis (Chronic) Palliative care patient (Chronic) CHF (congestive heart failure) (Chronic) Chronic kidney disease, stage 5 (Chronic) Bladder cancer (Chronic) Symptomatic anemia (Acute) ASCVD (arteriosclerotic cardiovascular disease) (Acute) Bladder mass (Acute) CKD (chronic kidney disease) (Acute) Cardiomyopathy (Acute) Emphysema, unspecified (Acute) Uremia, acute (Acute) Anemia (Chronic) Surgical History History of ankle surgery (Acute) History of biopsy of bladder (Acute) Previous back surgery (Acute) H/O prostatectomy (Chronic) H/O total cystectomy (Chronic) Social History Smoking/Tobacco Use Status: Current every day Tobacco Type: cigarettes Tobacco: How many years used: 50 Quit status: considering quitting Counseling given: support program and counseling >3 minutes Alcohol Intake: former Drug use: Occasionally Substance use type: marijuana Adopted: No Caregiver/Support person: Yes Foster care: No Household members: spouse and other Details: living with - 8 years Housing: house Number of Children: 5 number of grandchildren: 11 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
== END 2018-10-03 16:55 | disposition home or self-care (01) ==
LOC: ER 14:39 → MS 16:36
PROVIDERS: Admitting Provider Internal Medicine; Emergency Provider Physician Assistant; Visit Provider Internal Medicine
DX: R55 Syncope and collapse (principal); N18.5 Chronic kidney disease, stage 5; E86.0 Dehydration; C67.9 Malignant neoplasm of bladder, unspecified; F17.210 Nicotine dependence, cigarettes, uncomplicated; G89.3 Neoplasm related pain (acute) (chronic); I27.29 Other secondary pulmonary hypertension; C78.00 Secondary malignant neoplasm of unspecified lung; I08.0 Rheumatic disorders of both mitral and aortic valves; Z93.6 Other artificial openings of urinary tract status; R82.71 Bacteriuria; B96.20 Unspecified Escherichia coli [E. coli] as the cause of diseases classified elsewhere; B96.89 Other specified bacterial agents as the cause of diseases classified elsewhere; B95.2 Enterococcus as the cause of diseases classified elsewhere; Z16.11 Resistance to penicillins; Z16.19 Resistance to other specified beta lactam antibiotics; Z16.23 Resistance to quinolones and fluoroquinolones; J43.9 Emphysema, unspecified
CPT/HCPCS: 36415; 80048; 80053; 80061; 83721; 87077; 99217; 99220; 99285; 70450; 71046; 81003; 81015; 83735; 84443; 84484; 85025; 87086; 87186; 93005; 93010; 93306; 93880; 99284; G0378

== ENCOUNTER 2019-02-20 20:05 | Inpatient (IN) | payer MEDICAID, SELFPAY ==
[2019-02-20] VITALS (21 sets, daily range): BP systolic 101–140; BP diastolic 68–84; PULSE 98–134; RESP 16–34; TEMP 37.2–38.1; O2SAT 71–98
--- NOTE | 2019-02-20 20:26 | W.ED.GENAD ---
Discharge Plan Disposition Patient Disposition: [facility] INPATIENT Condition: Stable Discharge Details Chief Complaint: Abd Prob Clinical Impression: Enteritis Primary Care Provider: None,None ED Provider: Hernando Rodgers Home Meds and New Rx's Prescriptions: No Action nicotine (polacrilex) [Nicorette] 2 mg gum 2 mg BC Q1H Qty: 100 RF: 2 nicotine 14 mg/24 hr patch 24 hour 1 patch TD Q24H Qty: 30 RF: 1 oxycodone 15 mg tablet, oral only 15 mg PO Q8H MDD 45 mg Qty: 90 RF: 0 carvedilol 25 mg tablet 25 mg PO BID RF: 0 atorvastatin [Lipitor] 80 MG tablet 80 mg PO DAILY RF: 0 Medical Decision Making 63-year-old male with metastatic bladder cancer, just finished radiation treatment. He is followed by [facility] oncology. He is a patient of palliative care, followed by Dr. Roberson. Presents with 1 week of progressive right upper quadrant pain associated with worsening discomfort over 2 days time, fever, dry heaves. He has a temperature of 38.1, pulse 134, blood pressure 124/80. He has indwelling right upper quadrant urostomy tube, is tender overlying the right upper quadrant of the abdomen. Differential diagnosis includes basilar pneumonia, enteritis, cholecystitis, urostomy tube malfunction, colitis, progression of metastatic cancer. Patient had IV access established, given fluid bolus, referred for laboratory testing and CT images. Labs reveal a depressed sodium of 133, carbon dioxide is 18, anion gap 14, BUN 34, creatinine 3.1 lactic acid normal at 1.1. AST 8, ALT 10, troponin negative. White blood cell count is elevated at 17. Urinalysis appears contaminated, consistent with his long-standing urostomy tube. Urine cultures and blood cultures are pending. Imaging: Chest CT with left lower lobe spiculated nodule, coronary artery calcification, diffuse bronchial wall thickening. Abdominal CT moderate diffuse fluid distention of the small bowel without dilatation or transition point. Consider enterocolitis, acute diarrhea illness. Following 1L fluid and aetaminophen, the patients pulse corrected 20-30 pts. He is improving. Consistent with an acute enteritis, no evidence of obstruction. Case discussed with Dr. Zepeda and patient to be admitted. Lab Data Lab results reviewed: Yes I reviewed the patient's lab results. Labs: Laboratory Results - last 24 hr 02/20/19 02/20/19 02/20/19 20:28 20:28 20:42 Sodium 133 L Potassium 3.6 Chloride 100 Carbon Dioxide 18.3 L Anion Gap 14.7 H BUN 34 H Creatinine 3.12 H Estimated GFR/1.73 m2 20.30 Glucose 92 Lactate 1.1 Calcium 9.1 Magnesium 1.6 L Total Bilirubin 0.7 AST 8 L ALT 10 L Alkaline Phosphatase 218 H Troponin I < 0.05 Total Protein 7.7 Albumin 2.7 L Urine Color Yellow Urine Clarity Cloudy Urine pH 8.5 H Ur Specific [place] 1.015 Urine Protein 100 H Urine Ketones Negative Urine Blood Large H Urine Nitrite Negative Urine Bilirubin Negative Urine Urobilinogen 0.2 Ur Leukocyte Esterase Large H Urine RBC >50 H Urine WBC >50 Ur Epithelial Cells Few Urine Crystals Rare triple phos Urine Bacteria Many Urine Casts Negative Urine Mucus Moderate Urine Other Negative Ur Culture Indicated? Yes Urine Glucose Negative ECG Data Attestation: I personally reviewed and interpreted this ECG (s) as follows: Interpretation: Sinus tachycardia with a rate 128, the QRS is narrow, there is no ST segment elevation. HPI General Mode of arrival: ambulatory. Date/Time Provider Initiated Documentation: 02/20/19 20:06. Limitations to Documentation: no limitations. Information obtained by: patient. History of Present Illness 63 year old M presents to the emergency department with the chief complaint of Right upper abdominal pain nausea and dry heaves, described as moderate, Quality is described as constant, and is localized to the abdomen. Patient reports no radiation. Patient started experiencing this day(s) and it has been constant. No relieving factors improve symptom(s), No exacerbating factors reported . Patient notes fever/chills, loss of appetite, malaise and nausea/vomiting; denies chest pain and shortness of breath. Patient did receive the following treatments prior to arrival, none Related Data Home Medications Medication Instructions Recorded Confirmed atorvastatin [Lipitor] 80 mg PO DAILY 12/27/17 01/31/19 nicotine (polacrilex) 2 mg gum 2 mg BC Q1H #100 each 07/05/18 01/31/19 nicotine 14 mg/24 hr daily 1 patch TD Q24H #30 each 09/20/18 01/31/19 transdermal patch carvedilol 25 mg tablet 25 mg PO BID tab 01/31/19 oxycodone 15 mg tablet,oral ONLY 15 mg PO Q8H #90 tab MDD 45 mg 01/31/19 01/31/19 (not feeding tubes) Previous Rx's Medication Instructions Recorded nicotine (polacrilex) 2 mg gum 2 mg BC Q1H #100 each 07/05/18 nicotine 14 mg/24 hr daily 1 patch TD Q24H #30 each 09/20/18 transdermal patch oxycodone 15 mg tablet,oral ONLY 15 mg PO Q8H #90 tab MDD 45 mg 01/31/19 (not feeding tubes) Allergies Allergy/AdvReac Type Severity Reaction Status Date / Time Sulfa (Sulfonamide Allergy Intermediate deathly Verified 02/20/19 20:14 Antibiotics) sick and rash metoprolol AdvReac Intermediate Itching Verified 02/20/19 20:14 sodium bicarbonate AdvReac Intermediate stomach Verified 02/20/19 20:14 burning, vomitting General Stated Complaint: Abd Prob [place]: 3 Review of Systems Review of Systems Narrative: States urostomy is nearly 1 year old. Dry heaves at home. On and off subjective fever for a week. Some weight loss. Positive malaise. 8 systems reviewed and otherwise negative [facility] Medical History Acute sinus infection (Acute) Anemia (Chronic) ASCVD (arteriosclerotic cardiovascular disease) (Acute) Bladder cancer (Chronic) Bladder mass (Acute) Cardiomyopathy (Acute) CHF (congestive heart failure) (Chronic) Chronic kidney disease, stage 5 (Chronic) 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) Cigarette smoker one half pack a day or less (Chronic) CKD (chronic kidney disease) (Acute) COPD (chronic obstructive pulmonary disease) (Chronic) Emphysema, unspecified (Acute) Family dysfunction (Acute) Left lower lobe pulmonary nodule (Chronic) Lung mass (Chronic) Malignant neoplasm metastatic from bladder (Acute) Osteoarthritis (Chronic) Palliative care patient (Chronic) Symptomatic anemia (Acute) Unintentional weight loss (Acute) Uremia, acute (Acute) Surgical History H/O prostatectomy (Chronic) H/O total cystectomy (Chronic) History of ankle surgery (Acute) left ankle repair, 3 pins History of biopsy of bladder (Acute) Previous back surgery (Acute) discetomy to four discs (lumbar spine) Family History Mother , of breast cancer aged 77 No problems noted. Father , of kidney disease, CHF aged 77 s/p nephrectomy for uncertain reason, ? cancer No problems noted. Brother , of bladder and ? colon cancer aged 45 No problems noted. Sister Diabetes Son Age: 7 No problems noted. Son Age: 38 No problems noted. Son Age: 42 No problems noted. Son Age: 40 No problems noted. Social History Smoking/Tobacco Use Status: Current every day Tobacco Type: cigarettes Years smoked: 50 Tobacco: How many years used: 50 Quit status: considering quitting Counseling given: support program and counseling >3 minutes Alcohol Intake: former Drug use: Occasionally Substance use type: marijuana Counseling given: No Adopted: No Caregiver/Support person: Yes Foster care: No Household members: spouse and other Details: living with - 8 years Housing: house Number of Children: 5 number of grandchildren: 11 Communication Needs: Hard of Hearing and Corrective Lenses Education Level: high school Do you need help understanding health information?: Always 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, [employer], 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, 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 Pets and animals: Yes Sexually active: No What is your relationship status?: How often do you talk on the phone with friends or family?: three or more times per week How often do you get together with friends or relatives?: three or more times per week Panel score (0-1 are the most socially isolated patients): 1 What type of physical activity do you participate in: none Duration: 15-30 minutes/day Special josé antonio needs: No Agree to transfusion: Yes Seatbelt use: always Drive intox or ride w/intox stacker 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 Cornelio worried about who will care for him. Thinks son Vivek will. Cornelio does all the shopping and cooking for the household. often mean to Cornelio's young son; son still loves her. Exam Narrative Exam Narrative: GEN: awake, alert, oriented 3. Pleasant, well groomed, cachectic, interactive. HEAD: Normocephalic, atraumatic ENT: Mucous membranes dry, oropharynx unremarkable, External ear exam unremarkable EYES: PERRL, EOMI NECK: Full ROM, no DARLING, no menigismus CHEST/RESP: Nontender, clear to auscultation bilateral, no wheeze/rhonchi/rales CARDIOVASCULAR: Regular and tachycardic, no murmur, rub flo. 2+ Rad pulse bilateral ABDOMEN: Right anterior urostomy draining yellow urine, soft, right upper quadrant tenderness, no mass. +Bowel sounds EXT: Full ROM, no edema, no rash Neuro: Grossly normal neurologic exam, conversant, interactive. Psych: Speech fluent, thoughts congruent, affect normal Course Vital Signs Vital signs: Vital Signs Temperature 38.1 C H 02/20/19 20:10 Pulse 134 H 02/20/19 20:10 Respiratory Rate 16 02/20/19 20:10 Blood Pressure 124/80 02/20/19 20:10 Pulse Oximetry 98 02/20/19 20:10 Temperature 38.1 C H 02/20/19 20:10 Temperature Source Skin 02/20/19 20:10 Pulse 134 H 02/20/19 20:10 Respiratory Rate 16 02/20/19 20:10 Respiratory Effort Non-Labored 02/20/19 20:13 Blood Pressure 124/80 02/20/19 20:10 Blood Pressure Position Sitting 02/20/19 20:10 Pulse Oximetry 98 02/20/19 20:10 Oxygen Delivery Method Room Air 02/20/19 20:10 Oxygen Flow Rate 0 02/20/19 20:10
[2019-02-20] MEDS: Normal Saline 1,000 ML 1000 ML IV (20:31)
[2019-02-20 20:35] LABS: Abs Immature Grans 0.11 k/cumm (0.0-0.09); HCT 34.5 % (40.0-50.0); HGB 11.1 g/dL (13.5-17.5); Mean Corp. HGB Concentration 32.2 g/dL (32.0-36.0); Mean Corpuscular Hemoglobin 29.4 pg (27.0-33.0); Mean Corpuscular Volume 91.5 fL (80-95); Mean Platelet Volume 9.2 fL (8.0-11.0); Platelet Count 544 x1000/uL (130-400); RBC 3.77 m/cumm (4.50-6.00); RBC Distribution Width 14.1 % (11.8-14.1); White Blood Cell Count 17.49 k/cumm (4.4-10.8)
[2019-02-20 20:38] LABS: Lactate 1.1 mmol/L (0.6-1.4)
[2019-02-20] MEDS: Ondansetron 4 MG/2 ML VIAL IVP (20:40)
[2019-02-20 20:48] LABS: Bilirubin Negative (Negative); Blood Large (Negative); Clarity Cloudy (Clear); Glucose Negative (Negative); Ketones Negative (Negative); Leukocyte Esterase Large (Negative); Nitrite Negative (Negative); Specific Gravity 1.015 (1.005-1.025); Urobilinogen 0.2 EU/dL (Up TO 0.2); pH 8.5 (5-8)
[2019-02-20 20:57] LABS: Bacteria Many HPF (Negative); Crystals Rare Triple Phos HPF (Negative); Epithelial Cells Few HPF (Negative); Other Cells Negative (Negative); RBC >50 (0-2); WBC >50 HPF (0-5)
[2019-02-20 20:57] LABS: ALT 10 U/L (16-63); AST 8 U/L (15-37); Albumin 2.7 g/dL (3.4-5.0); Alkaline Phosphatase 218 U/L (46-116); Anion Gap 14.7 mmol/L (3-11); BUN 34 mg/dL (7-18); Bilirubin, Total 0.7 mg/dL (0.2-1.0); CO2 18.3 mmol/L (21.0-32.0); CREATININE 3.12 mg/dL (0.70-1.30); Calcium 9.1 mg/dL (8.5-10.1); Chloride 100 mmol/L (98-107); Glucose 92 mg/dL (70-100); Magnesium 1.6 mg/dL (1.8-2.4); Potassium 3.6 mmol/L (3.5-5.1); Sodium 133 mmol/L (136-145); Total Protein 7.7 g/dL (6.4-8.2)
[2019-02-20 20:58] LABS: C & S Indicated? Yes; Casts Negative LPF (Negative); Mucus Moderate (Negative)
[2019-02-20 20:58] LABS: Troponin I < 0.05 ng/mL (0.00-0.06)
--- NOTE | 2019-02-20 20:58 | DI.CT_ITS ---
EXAM: CT CHEST/ABD/PEL WO CLINICAL HISTORY: Metastatic cancer, right upper quadrant pain. TECHNIQUE: Noncontrast COMPARISON: CT ABDOMEN AND PELVIS WO from 03/03/2018 FINDINGS: Chest CT: There are moderate to severe emphysematous changes, greater at the apices. There is a spi culated mass in the left lower lobe measuring 2 3 cm. A 5 millimeter nodule is seen in the left uppe r lobe. No adenopathy is seen. No pleural or pericardial effusions are seen. The aorta is normal in diameter. No infiltrates are seen. No compression fractures or destructive bony lesions are identifi ed. Abdomen and pelvic CT: The liver now shows numerous low density masses consistent with metastases. Th e findings are new when compared with the previous exam. There is no biliary dilatation. Gallbladder is unremarkable. The pancreas, spleen and adrenals are unremarkable. A right ureteral stent is seen. The proximal pigtail is in the right renal pelvis. The distal portion of the stent extends into the u rostomy bag. There is a small nonobstructing stone at the lower pole of the right kidney. The left k idney appears atrophic. The bladder is surgically absent. There is no evidence of bowel obstruction. There is mild fluid distention of small bowel. There is no evidence of abscess or free air. There is a large right hydrocele. No suspicious bony abnormalities are identified. IMPRESSION: A 2.3 centimeter spiculated mass in the left lower lobe suspicious for metastatic disease. Innumerabl e hepatic metastases. Right-sided ureteral stent without evidence of obstruction. Mildly distended sm all bowel without evidence of obstruction.
[2019-02-20 21:03] LABS: Absolute Neutrophil Count 14.34 k/cumm (1.2-6.7); Atypical Lymphocytes % 0
[2019-02-20] MEDS: Acetaminophen 500 MG TAB 1000 MG PO (21:03)
[2019-02-20 21:04] LABS: Absolute Eosinophil Count 0.17 k/cumm (0.0-0.7); Absolute Monocyte Count 1.57 k/cumm (0.11-0.7); Basophilic Stippling Present; Diff Comment Manual Differential; Lipase 52 U/L (73-393); Polychromasia Present
--- NOTE | 2019-02-20 21:47 | DI.VRAD_ITS ---
PROCEDURE INFORMATION: Exam: CT Chest Without Contrast Exam date and time: 02/20/2019 8:30 PM Clinical history: 63 years old, male; Abdominal pain; Localized; Right upper quadrant (ruq); Other: R sided; Prior surgery; Patient HX: Metastatic cancer, ruq pain; Additional info: Per PT: Pain started 02/18 and hasn't gotten better TECHNIQUE: Imaging protocol: Computed tomography of the chest without contrast. COMPARISON: CT ABDOMEN PELVIS WO 03/03/2018 2:05 PM FINDINGS: Thyroid: The visualized thyroid gland is unremarkable. Lungs: There is mild diffuse bronchial wall thickening suggesting an element of bronchitis. No infiltrates or edema. Moderate-severe diffuse emphysematous changes which are most pronounced in the pulmonary apices. 2.3 x 1.9 cm spiculated mass lesion in the left lower lobe on series 3 image 5 and 7 concern for pulmonary malignancy. 5.3 mm noncalcified nodule in the left upper lobe posterior segment on series 3 image 276. Pleural space: No pleural effusions. No pneumothorax. Heart: Heart size normal. Severe coronary artery calcification in the LAD distribution. Mediastinum: The esophagus is largely contracted without gross abnormality. Pulmonary arteries: The pulmonary arteries demonstrate no gross abnormality. Aorta: Moderate aortic calcification with mild ectasia. No mediastinal hematoma. Lymph nodes: No supraclavicular or axillary adenopathy. Calcified mediastinal nodes consistent with remote prior granulomatous disease. No active mediastinal/hilar adenopathy was evident. Bones/joints: No acute osseous abnormalities are identified. Soft tissues: Relative lack of chest wall fat suggests cachexia. IMPRESSION: 1. 2.3 x 1.9 cm spiculated nodule in the left lower lobe concerning for primary pulmonary malignancy. Highly suspicious nodule. Consider PET/CT, or tissue sampling unless previously assessed.(Dread et al., Fleischner Society, 2017). 2. There is also a 5.3 mm noncalcified pulmonary nodule in the left upper lobe. 3. Severe coronary artery calcification. 4. Mild diffuse bronchial wall thickening suggesting an element of bronchitis. 5. Moderate-severe diffuse emphysematous changes, most pronounced in the pulmonary apices. PROCEDURE INFORMATION: Exam: CT Abdomen And Pelvis Without Contrast Exam date and time: 02/20/2019 8:30 PM Clinical history: 63 years old, male; Abdominal pain; Localized; Right upper quadrant (ruq); Other: R sided; Prior surgery; Patient HX: Metastatic cancer, ruq pain; Additional info: Per PT: Pain started 02/18 and hasn't gotten better TECHNIQUE: Imaging protocol: Computed tomography of the abdomen and pelvis without contrast. COMPARISON: CT ABDOMEN PELVIS WO 03/03/2018 2:05 PM FINDINGS: Mediastinum: The visualized distal esophagus is unremarkable. The stomach is largely contracted, limiting its assessment. Liver: Heterogeneous liver with numerous ill-defined low density mass lesions throughout the hepatic parenchyma concerning for diffuse hepatic metastasis, new since 03/03/2018. Multiple smaller low density circumscribed lesions are also noted in the liver consistent with hepatic cysts. These are unchanged. No intrahepatic biliary ductal dilatation. Gallbladder and bile ducts: Normal. No calcified stones. No ductal dilation. Pancreas: Normal. No inflammatory changes or ductal dilation. Spleen: Normal. No splenomegaly. Adrenals: Normal. No adrenal mass. Kidneys and ureters: Right ureteral stent in place with the proximal loop in the right renal pelvis and the distal tubing extending to the urostomy bag. No hydronephrosis or hydroureter. 3 mm nonobstructive stone in the lower pole of the right kidney. Severe left renal cortical atrophy. Mild bilateral symmetrical perinephric stranding, nonspecific. This is unchanged and may relate to chronic perirenal scarring. Stomach and bowel: Moderate diffuse fluid distention of the small bowel without gross dilatation or transition point. There is also moderate fluid content throughout the colon. This may relate to ileus or mild enterocolitis/acute diarrhea illness, with no evidence to favor bowel obstruction. No evidence of perforation or abscess. Appendix: The appendix is not identified. No secondary signs of appendicitis. Intraperitoneal space: No free fluid or air. Vasculature: Moderate atherosclerotic aortoiliac calcification without aneurysm. Lymph nodes: There are a few enlarged periaortic nodes measuring up to 8 mm short axis. Bladder: Bladder is absent. Reproductive: Large right-sided hydrocele again noted. Bones/joints: No acute osseous abnormalities. Soft tissues: Unremarkable. IMPRESSION: 1. Numerous low-density hepatic mass lesions are identified which are new since the comparison CT 03/03/2018, concerning for progression of hepatic metastasis, measuring up to 3.6 cm. 2. Prior cystectomy with right anterior mid abdominal urostomy site noted. There is a right ureteral stent in place with no hydronephrosis or associated stent complication. There is a 3 mm nonobstructive stone in the right kidney. 3. Moderate diffuse fluid distention of the small bowel and moderate fluid content throughout the colon, with no transition point to suggest bowel obstruction. This may relate to ileus or mild enterocolitis/acute diarrheal illness. No evidence of perforation or abscess. 4. Mildly enlarged periaortic nodes, nonspecific. Dictated and Authenticated by: Taqueria Disla MD. Ordering:RADHA Villagomez MD
--- NOTE | 2019-02-20 22:16 | HPE_ITS ---
Date of service: 02/20/19 Time of Service: 22:16 Assessment and Plan Assessment and plan (1) Malignant neoplasm metastatic from bladder: Status: Chronic Assessment and plan: This is a 63-year-old gentleman here for viral quadrant abdominal pain and fever and known diffusely metastatic bladder cancer and recent radiation therapy. He has elements of possible respiratory inflammation on CT along with enteritis on CT. His urine appears infected but is chronically contaminated. With his fever we will treat him with Rocephin covering most of these possible sources of infection while IV hydrated, which has made him feel better. Was becoming dry with his recent vomiting and decreased appetite after cancer treatments. He is a DNR/DNI this will be respected. We will await cultures to guide further antibiotic therapy and possible discharge on oral antibiotics once he has stabilized. He does have chronic kidney disease which appears stable. He also has CHF but no evidence of heart failure and we will be aware of this problem as we IV hydrate (2) UTI (urinary tract infection) due to Enterococcus: Status: Acute Assessment and plan: Start Rocephin and follow-up on cultures and adju sting therapy probably. (3) Enteritis: Status: Acute Assessment and plan: This may be associated with his radiation therapy and recent treatments. He is slightly dehydrated appearing with this problem and this will be treated symptomatically for nausea with IV hydration for fluid replacement and advance diet as patient tolerates. History of Present Illness History of Present Illness Chief Complaint: Right upper quadrant abdominal pain with fever Narrative: This is a 63-year-old gentleman who is receiving chemotherapy and just finished radiation therapy for metastatic bladder cancer. He is seen at [facility] oncology. He has had p rogressive 1 week history of right upper quadrant abdominal pain and 2 days of worsening pain with fever and dry heaves. 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 He was uncomfortable with this fever and was given Zofran for nausea which resolved his symptoms. He also was tachycardic and this did respond to IV fluid resuscitation. He does have a history of a cardiomyopathy but has been off carvedilol recently because of low blood pressure. He has had no shortness of breath or cough. He denies any peripheral edema. He has been losing weight and appears cachectic with his advanced cancer. See ED note which was reviewed for further history and review of systems. Review of Systems Review of Systems Narrative: 13 point review of systems otherwise unrevealing or stable. 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) Cigarette smoker one half pack a day or less (Chronic) CKD (chronic kidney disease) (Acute) COPD (chronic obstructive pulmonary disease) (Chronic) Emphysema, unspecified (Acute) Family dysfunction (Acute) Left lower lobe pulmonary nodule (Chronic) Lung mass (Chronic) Malignant neoplasm metastatic from bladder (Acute) Osteoarthritis (Chronic) Palliative care patient (Chronic) Symptomatic anemia (Acute) Unintentional weight loss (Acute) Uremia, acute (Acute) Surgical History H/O prostatectomy (Chronic) H/O total cystectomy (Chronic) History of ankle surgery (Acute) left ankle repair, 3 pins History of biopsy of bladder (Acute) Previous back surgery (Acute) discetomy to four discs (lumbar spine) Family History Mother , of breast cancer aged 77 No problems noted. Father , of kidney disease, CHF aged 77 s/p nephrectomy for uncertain reason, ? cancer No problems noted. Brother , of bladder and ? colon cancer aged 45 No problems noted. Sister Diabetes Son Age: 7 No problems noted. Son Age: 38 No problems noted. Son Age: 42 No problems noted. Son Age: 40 No problems noted. Social History Smoking/Tobacco Use Status: Current every day Tobacco Type: cigarettes Years smoked: 50 Tobacco: How many years used: 50 Quit status: considering quitting Counseling given: support program and counseling >3 minutes Alcohol Intake: former Drug use: Occasionally Substance use type: marijuana Counseling given: No Adopted: No Caregiver/Support person: Yes Foster care: No Household members: spouse and other Details: living with - 8 years Housing: house Number of Children: 5 number of grandchildren: 11 Communication Needs: Hard of Hearing and Corrective Lenses Education Level: high school Do you need help understanding health information?: Always 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, [employer], 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, can't Pets and animals: Yes Sexually active: No What is your relationship status?: How often do you talk on the phone with friends or family?: three or more times per week How often do you get together with friends or relatives?: three or more times per week Panel score (0-1 are the most socially isolated patients): 1 What type of physical activity do you participate in: none Duration: 15-30 minutes/day Special josé antonio needs: No Agree to transfusion: Yes Seatbelt use: always Drive intox or ride w/intox front end loader 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 Cornelio worried about who will care for him. Thinks son Vivek will. Cornelio does all the shopping and cooking for the household. often mean to oCrnelio's young son; son still loves her. Meds Home Medications and Allergies Home Medications Medication Instructions Recorded Confirmed Type atorvastatin [Lipitor] 80 mg PO DAILY 12/27/17 02/20/19 History oxycodone 15 mg tablet,oral ONLY 15 mg PO Q8H #90 tab MDD 45 mg 01/31/1912/02 Rx (not feeding tubes) carvedilol 25 mg PO BID 02/21/19 02/21/19 History Allergies Allergy/AdvReac Type Severity Reaction Status Date / Time Sulfa (Sulfonamide Allergy Intermediate deathly Verified 02/20/19 20:14 Antibiotics) sick and rash metoprolol AdvReac Intermediate Itching Verified 02/20/19 20:14 sodium bicarbonate AdvReac Intermediate stomach Verified 02/20/19 20:14 burning, vomitting Exam Narrative Exam Narrative: General: Patient appears cachectic and older than stated age, no acute distress and very talkative. HEENT: Disheveled thinning hair, normocephalic with face having coarsened features. Eyes with pupils equal and reactive to light symmetrically and extraocular movement intact with sclera anicteric. Oropharynx with dry oral mucosa. Neck: Supple without JVD. Lungs: Bronchovesicular breath sounds diffusely with no focalizing rales or rhonchi. No expiratory wheeze or increased expiratory phase. Heart: Distant heart sounds with possible gallop but no murmurs. Slightly tachycardic but regular rhythm. Chest: Thin with ribs showing and no tenderness to palpation. Abdomen: Scaphoid with bowel sounds positive all quadrants, slightly tender right upper quadrant but no guarding and no palpable hepatosplenomegaly. Ureteroileal conduit in right lower quadrant draining cloudy urine. Genitalia/rectal: Exam deferred. Extremities: No clubbing, cyanosis or edema with muscle atrophy diffusely and no joint swelling. Skin: Unkempt, decreased turgor, pale, warm and dry. Neuro: Cranial nerves II through XII grossly intact with no focalizing motor deficits. Results Imaging Imaging Studies: Exam(s) PROCEDURE INFORMATION: Exam: CT Chest Without Contrast Exam date and time: 02/20/2019 8:30 PM Clinical history: 63 years old, male; Abdominal pain; Localized; Right upper quadrant (ruq); Other: R sided; Prior surgery; Patient HX: Metastatic cancer, ruq pain; Additional info: Per PT: Pain started 10/5 and hasn't gotten better TECHNIQUE: Imaging protocol: Computed tomography of the chest without contrast. COMPARISON: CT ABDOMEN PELVIS WO 03/03/2018 2:05 PM FINDINGS: Thyroid: The visualized thyroid gland is unremarkable. Lungs: There is mild diffuse bronchial wall thickening suggesting an element of bronchitis. No infiltrates or edema. Moderate-severe diffuse emphysematous changes which are most pronounced in the pulmonary apices. 2.3 x 1.9 cm spiculated mass lesion in the left lower lobe on series 3 image 5 and 7 concern for pulmonary malignancy. 5.3 mm noncalcified nodule in the left upper lobe posterior segment on series 3 image 276. Pleural space: No pleural effusions. No pneumothorax. Heart: Heart size normal. Severe coronary artery calcification in the LAD distribution. Mediastinum: The esophagus is largely contracted without gross abnormality. Pulmonary arteries: The pulmonary arteries demonstrate no gross abnormality. Aorta: Moderate aortic calcification with mild ectasia. No mediastinal hematoma. Lymph nodes: No supraclavicular or axillary adenopathy. Calcified mediastinal nodes consistent with remote prior granulomatous disease. No active mediastinal/hilar adenopathy was evident. Bones/joints: No acute osseous abnormalities are identified. Soft tissues: Relative lack of chest wall fat suggests cachexia. IMPRESSION: 1. 2.3 x 1.9 cm spiculated nodule in the left lower lobe concerning for primary pulmonary malignancy. Highly suspicious nodule. Consider PET/CT, or tissue sampling unless previously assessed.(Dread et al., Fleischner Society, 2017). 2. There is also a 5.3 mm noncalcified pulmonary nodule in the left upper lobe. 3. Severe coronary artery calcification. 4. Mild diffuse bronchial wall thickening suggesting an element of bronchitis. 5. Moderate-severe diffuse emphysematous changes, most pronounced in the pulmonary apices. PROCEDURE INFORMATION: Exam: CT Abdomen And Pelvis Without Contrast Exam date and time: 02/20/2019 8:30 PM Clinical history: 63 years old, male; Abdominal pain; Localized; Right upper quadrant (ruq); Other: R sided; Prior surgery; Patient HX: Metastatic cancer, ruq pain; Additional info: Per PT: Pain started 02/18 and hasn't gotten better TECHNIQUE: Imaging protocol: Computed tomography of the abdomen and pelvis without contrast. COMPARISON: CT ABDOMEN PELVIS WO 03/03/2018 2:05 PM FINDINGS: Mediastinum: The visualized distal esophagus is unremarkable. The stomach is largely contracted, limiting its assessment. Liver: Heterogeneous liver with numerous ill-defined low density mass lesions throughout the hepatic parenchyma concerning for diffuse hepatic metastasis, new since 03/03/2018. Multiple smaller low density circumscribed lesions are also noted in the liver consistent with hepatic cysts. These are unchanged. No intrahepatic biliary ductal dilatation. Gallbladder and bile ducts: Normal. No calcified stones. No ductal dilation. Pancreas: Normal. No inflammatory changes or ductal dilation. Spleen: Normal. No splenomegaly. Adrenals: Normal. No adrenal mass. Kidneys and ureters: Right ureteral stent in place with the proximal loop in the right renal pelvis and the distal tubing extending to the urostomy bag. No hydronephrosis or hydroureter. 3 mm nonobstructive stone in the lower pole of the right kidney. Severe left renal cortical atrophy. Mild bilateral symmetrical perinephric stranding, nonspecific. This is unchanged and may relate to chronic perirenal scarring. Stomach and bowel: Moderate diffuse fluid distention of the small bowel without gross dilatation or transition point. There is also moderate fluid content throughout the colon. This may relate to ileus or mild enterocolitis/acute diarrhea illness, with no evidence to favor bowel obstruction. No evidence of perforation or abscess. Appendix: The appendix is not identified. No secondary signs of appendicitis. Intraperitoneal space: No free fluid or air. Vasculature: Moderate atherosclerotic aortoiliac calcification without aneurysm. Lymph nodes: There are a few enlarged periaortic nodes measuring up to 8 mm short axis. Bladder: Bladder is absent. Reproductive: Large right-sided hydrocele again noted. Bones/joints: No acute osseous abnormalities. Soft tissues: Unremarkable. IMPRESSION: 1. Numerous low-density hepatic mass lesions are identified which are new since the comparison CT 03/03/2018, concerning for progression of hepatic metastasis, measuring up to 3.6 cm. 2. Prior cystectomy with right anterior mid abdominal urostomy site noted. There is a right ureteral stent in place with no hydronephrosis or associated stent complication. There is a 3 mm nonobstructive stone in the right kidney. 3. Moderate diffuse fluid distention of the small bowel and moderate fluid content throughout the colon, with no transition point to suggest bowel obstruction. This may relate to ileus or mild enterocolitis/acute diarrheal illness. No evidence of perforation or abscess. 4. Mildly enlarged periaortic nodes, nonspecific. Dictated and Authenticated by: Taqueria Disla MD. Labs Result diagrams: 02/20/19 20:28 02/20/19 20:28 Labs: Laboratory Results - last 24 hr 02/20/19 02/20/19 02/20/19 20:28 20:28 20:28 WBC 17.49 H RBC 3.77 L Hgb 11.1 L Hct 34.5 L MCV 91.5 MCH 29.4 MCHC 32.2 RDW 14.1 Plt Count 544 H MPV 9.2 Immature Gran % 0.0 Neutrophils % 82.0 Band Neutrophils % 0.0 Lymphocytes % 8.0 Atypical Lymphs % 0 Monocytes % 9.0 Eosinophils % 1.0 Basophils % 0.0 Absolute Neutrophils 14.34 H Absolute Lymphocytes 1.40 Absolute Monocytes 1.57 H Absolute Eosinophils 0.17 Absolute Basophils 0.00 Differential Comment Manual differential RBC Morphology See below Polychromasia Present Basophilic Stippling Present Sodium 133 L Potassium 3.6 Chloride 100 Carbon Dioxide 18.3 L Anion Gap 14.7 H BUN 34 H Creatinine 3.12 H Estimated GFR/1.73 m2 20.30 Glucose 92 Lactate 1.1 Calcium 9.1 Magnesium 1.6 L Total Bilirubin 0.7 AST 8 L ALT 10 L Alkaline Phosphatase 218 H Troponin I < 0.05 Total Protein 7.7 Albumin 2.7 L Lipase 52 L Urine Color Urine Clarity Urine pH Ur Specific [place] Urine Protein Urine Ketones Urine Blood Urine Nitrite Urine Bilirubin Urine Urobilinogen Ur Leukocyte Esterase Urine RBC Urine WBC Ur Epithelial Cells Urine Crystals Urine Bacteria Urine Casts Urine Mucus Urine Other Ur Culture Indicated? Urine Glucose 02/20/19 20:42 WBC RBC Hgb Hct MCV MCH MCHC RDW Plt Count MPV Immature Gran % Neutrophils % Band Neutrophils % Lymphocytes % Atypical Lymphs % Monocytes % Eosinophils % Basophils % Absolute Neutrophils Absolute Lymphocytes Absolute Monocytes Absolute Eosinophils Absolute Basophils Differential Comment RBC Morphology Polychromasia Basophilic Stippling Sodium Potassium Chloride Carbon Dioxide Anion Gap BUN Creatinine Estimated GFR/1.73 m2 Glucose Lactate Calcium Magnesium Total Bilirubin AST ALT Alkaline Phosphatase Troponin I Total Protein Albumin Lipase Urine Color Yellow Urine Clarity Cloudy Urine pH 8.5 H Ur Specific [place] 1.015 Urine Protein 100 H Urine Ketones Negative Urine Blood Large H Urine Nitrite Negative Urine Bilirubin Negative Urine Urobilinogen 0.2 Ur Leukocyte Esterase Large H Urine RBC >50 H Urine WBC >50 Ur Epithelial Cells Few Urine Crystals Rare triple phos Urine Bacteria Many Urine Casts Negative Urine Mucus Moderate Urine Other Negative Ur Culture Indicated? Yes Urine Glucose Negative Last Vital Signs Temp 38.1 C H 02/20/19 20:10 Pulse 134 H 02/20/19 20:10 Resp 16 02/20/19 20:10 BP 124/80 02/20/19 20:10 Pulse Ox 98 02/20/19 20:10
[2019-02-20] MEDS: Heparin 5,000 UNITS/ML VIAL 5000 UNITS SC (23:57)
[2019-02-20] MEDS: oxyCODONE 15 MG TAB PO (23:58)
[2019-02-21] VITALS (7 sets, daily range): BP systolic 107–122; BP diastolic 72–82; PULSE 85–91; RESP 16–19; TEMP 36.9–37.9; O2SAT 95–97
[2019-02-21] MEDS: Normal Saline 1,000 ML 125 ML IV ×3 (00:05→16:17)
[2019-02-21] MEDS: Ondansetron 4 MG/2 ML VIAL IVP (06:09)
[2019-02-21] MEDS: oxyCODONE 15 MG TAB PO ×3 (06:09→21:32)
[2019-02-21] MEDS: Heparin 5,000 UNITS/ML VIAL 5000 UNITS SC ×3 (06:10→21:33)
[2019-02-21 07:32] LABS: HCT 29.6 % (40.0-50.0); HGB 9.1 g/dL (13.5-17.5); Mean Corp. HGB Concentration 30.7 g/dL (32.0-36.0); Mean Corpuscular Hemoglobin 28.7 pg (27.0-33.0); Mean Corpuscular Volume 93.4 fL (80-95); Mean Platelet Volume 9.4 fL (8.0-11.0); Platelet Count 439 x1000/uL (130-400); RBC 3.17 m/cumm (4.50-6.00); White Blood Cell Count 9.59 k/cumm (4.4-10.8)
[2019-02-21 07:43] LABS: ALT < 6 U/L (16-63); AST 6 U/L (15-37); Albumin 2.1 g/dL (3.4-5.0); Alkaline Phosphatase 171 U/L (46-116); BUN 32 mg/dL (7-18); Bilirubin, Total 0.4 mg/dL (0.2-1.0); CREATININE 2.97 mg/dL (0.70-1.30); Calcium 8.2 mg/dL (8.5-10.1); Chloride 109 mmol/L (98-107); Estimated GFR 21.49 (mL/min/1.73m2); Glucose 86 mg/dL (70-100); Potassium 3.8 mmol/L (3.5-5.1); Sodium 139 mmol/L (136-145); Total Protein 6.1 g/dL (6.4-8.2)
[2019-02-21 08:21] LABS: Magnesium 1.6 mg/dL (1.8-2.4)
[2019-02-21] MEDS: Magnesium Oxide 400 MG TAB PO ×2 (08:31→19:48)
--- NOTE | 2019-02-21 12:56 | PCNE_ITS ---
Date of service: 02/21/19 History of Present Illness History of Present Illness Chief Complaint: fever, enteritis, metastatic bladder ca, UTI Narrative: Cornelio is well known to me. He has metastatic bladder cancer, with known metastases to his lungs. He had a biopsy of his lung mass in December; it showed bladder cancer. He had 3 days of high dose radiation, ending on January 13. He is usually quite active at home. He's been bear-hunting. He doesn't always stay hydrated when he's out in the [place]. He has a 7 yo son. He also lives with his 40 yo son and his own , from whom he is partially estranged (the 7 yo is the son of another woman, who in her 30s). Cornelio was asking when he could go home. He says he feels much better. He is still running a low grade temp of 37.9. He feels hot to the touch on his back. He is not nauseated today. He is not having the RUQ pain he had been having for 24-48 hrs prior to admission. He feels he is near back to his normal. Consults Consult date: 02/21/19 Requesting physician: Alexandria Mayen Assessment and Plan Assessment and plan (1) UTI (urinary tract infection) due to Enterococcus: Status: Acute Assessment and plan: reason for admission still with fever more than your typical UTI (2) Malignant neoplasm metastatic from bladder: Status: Chronic Assessment and plan: lung mass noted on admitting CT scan is not new asked [facility] when restaging is due not until 03/17 they may move it up is s/p chemo and radiation (3) Left lower lobe pulmonary nodule: Status: Chronic Assessment and plan: biopsied; proven bladder metastases though has appearance of primary lung cancer (4) Palliative care patient: Status: Chronic Assessment and plan: Followed for more than a year now. Remarkably simmons and optimistic will not change code status away from FULL due to his son still wants to see him finish middle school (He is in 2nd grade now) Review of Systems Constitutional Constitutional: Reports body ache(s), Reports fatigue, Reports fever(s) and Reports weakness Eyes Eyes: Reports dry eyes and Reports requires corrective lenses ENT Ears, Nose, Mouth, and Throat: Reports abnormal hearing and Reports dry mouth (though MM are not cracked) Cardiovascular Cardiovascular: Reports lightheadedness and Reports dyspnea on exertion Respiratory Respiratory: Reports dyspnea on exertion Gastrointestinal Gastrointestinal: Reports early satiety and Reports nausea (not today) Genitourinary Genitourinary: Denies flank pain and Reports other (has an ileostomy) Musculoskeletal Musculoskeletal: Reports atrophy and Reports muscle weakness Comments: harder for him to do his usual activities gets winded walking in the [place] but determined to be out there Integumentary/Breasts Skin/Breast: Reports dry skin and Reports nail changes (dirty, long) Neurologic Neurologic: Reports abnormal hearing and Reports weakness Psychiatric Psychiatric: Reports system reviewed and no additional complaints, except as do cu Comments: surprisingly easy-going, as usual Endocrine Endocrine: Reports cold intolerance and Reports fatigue Hematologic/Lymphatic Hematologic/Lymphatic: Reports easy bruising [facility] Medical History Acute sinus infection (Acute) Anemia (Chronic) ASCVD (arteriosclerotic cardiovascular disease) (Acute) Bladder cancer (Chronic) Bladder mass (Acute) Cardiomyopathy (Acute) CHF (congestive heart failure) (Chronic) Chronic kidney disease, stage 5 (Chronic) 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) Cigarette smoker one half pack a day or less (Chronic) CKD (chronic kidney disease) (Acute) COPD (chronic obstructive pulmonary disease) (Chronic) Emphysema, unspecified (Acute) Family dysfunction (Acute) Left lower lobe pulmonary nodule (Chronic) Lung mass (Chronic) Malignant neoplasm metastatic from bladder (Chronic) Osteoarthritis (Chronic) Palliative care patient (Chronic) Symptomatic anemia (Acute) Unintentional weight loss (Acute) Uremia, acute (Acute) Surgical History H/O prostatectomy (Chronic) H/O total cystectomy (Chronic) History of ankle surgery (Acute) left ankle repair, 3 pins History of biopsy of bladder (Acute) Previous back surgery (Acute) discetomy to four discs (lumbar spine) Family History Mother , of breast cancer aged 77 No problems noted. Father , of kidney disease, CHF aged 77 s/p nephrectomy for uncertain reason, ? cancer No problems noted. Brother , of bladder and ? colon cancer aged 45 No problems noted. Sister Diabetes Son Age: 7 No problems noted. Son Age: 38 No problems noted. Son Age: 42 No problems noted. Son Age: 40 No problems noted. Social History Smoking/Tobacco Use Status: Current every day Tobacco Type: cigarettes Years smoked: 50 Tobacco: How many years used: 50 Quit status: considering quitting Counseling given: support program and counseling >3 minutes Alcohol Intake: former Drug use: Occasionally Substance use type: marijuana Counseling given: No Adopted: No Caregiver/Support person: Yes Foster care: No Household members: spouse and other Details: living with - 8 years Housing: house Number of Children: 5 number of grandchildren: 11 Communication Needs: Hard of Hearing and Corrective Lenses Education Level: high school Do you need help understanding health information?: Always 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, [employer], 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, can't Pets and animals: Yes Sexually active: No What is your relationship status?: How often do you talk on the phone with friends or family?: three or more times per week How often do you get together with friends or relatives?: three or more times per week Panel score (0-1 are the most socially isolated patients): 1 What type of physical activity do you participate in: none Duration: 15-30 minutes/day Special josé antonio needs: No Agree to transfusion: Yes Seatbelt use: always Drive intox or ride w/intox transport truck 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 Cornelio worried about who will care for him. Thinks son Vivek will. Cornelio does all the shopping and cooking for the household. often mean to Cornelio's young son; son still loves her. Exam Narrative Exam Narrative: General: Patient appears cachectic and older than stated age, no acute distress and very talkative. HEENT: Disheveled thinning hair, normocephalic with face having coarsened features. Eyes with pupils equal and reactive to light symmetrically and extraocular movement intact with sclera anicteric. Oropharynx with dry oral mucosa. Neck: Supple without JVD. Lungs: Bronchovesicular breath sounds diffusely with no focalizing rales or rhonchi. No expiratory wheeze or increased expiratory phase. Heart: Distant heart sounds with possible gallop but no murmurs. Slightly tachycardic but regular rhythm. Chest: Thin with ribs showing and no tenderness to palpation. Abdomen: Scaphoid with bowel sounds positive all quadrants, slightly tender right upper quadrant but no guarding and no palpable hepatosplenomegaly. Ureteroileal conduit in right lower quadrant draining cloudy urine. Genitalia/rectal: Exam deferred. Extremities: No clubbing, cyanosis or edema with muscle atrophy diffusely and no joint swelling. Skin: Unkempt, decreased turgor, pale, warm and dry. Neuro: Cranial nerves II through XII grossly intact with no focalizing motor deficits. Results Last Vital Signs Temp 99.0 F 02/21/19 11:31 Pulse 86 02/21/19 11:31 Resp 18 02/21/19 11:31 BP 116/75 02/21/19 11:31 Pulse Ox 97 02/21/19 11:31 Labs Result diagrams: 02/21/19 07:03 02/21/19 07:03 Labs: Laboratory Results - last 24 hr 02/20/19 02/20/19 02/20/19 20:28 20:28 20:28 WBC 17.49 H RBC 3.77 L Hgb 11.1 L Hct 34.5 L MCV 91.5 MCH 29.4 MCHC 32.2 RDW 14.1 Plt Count 544 H MPV 9.2 Immature Gran % 0.0 Neutrophils % 82.0 Band Neutrophils % 0.0 Lymphocytes % 8.0 Atypical Lymphs % 0 Monocytes % 9.0 Eosinophils % 1.0 Basophils % 0.0 Absolute Neutrophils 14.34 H Absolute Lymphocytes 1.40 Absolute Monocytes 1.57 H Absolute Eosinophils 0.17 Absolute Basophils 0.00 Differential Comment Manual differential RBC Morphology See below Polychromasia Present Basophilic Stippling Present Sodium 133 L Potassium 3.6 Chloride 100 Carbon Dioxide 18.3 L Anion Gap 14.7 H BUN 34 H Creatinine 3.12 H Estimated GFR/1.73 m2 20.30 Glucose 92 Lactate 1.1 Calcium 9.1 Magnesium 1.6 L Total Bilirubin 0.7 AST 8 L ALT 10 L Alkaline Phosphatase 218 H Troponin I < 0.05 Total Protein 7.7 Albumin 2.7 L Lipase 52 L Urine Color Urine Clarity Urine pH Ur Specific [place] Urine Protein Urine Ketones Urine Blood Urine Nitrite Urine Bilirubin Urine Urobilinogen Ur Leukocyte Esterase Urine RBC Urine WBC Ur Epithelial Cells Urine Crystals Urine Bacteria Urine Casts Urine Mucus Urine Other Ur Culture Indicated? Urine Glucose 02/20/19 02/21/19 02/21/19 20:42 07:03 07:03 WBC 9.59 D RBC 3.17 L Hgb 9.1 L Hct 29.6 L MCV 93.4 MCH 28.7 MCHC 30.7 L RDW 14.0 Plt Count 439 H MPV 9.4 Immature Gran % Neutrophils % Band Neutrophils % Lymphocytes % Atypical Lymphs % Monocytes % Eosinophils % Basophils % Absolute Neutrophils Absolute Lymphocytes Absolute Monocytes Absolute Eosinophils Absolute Basophils Differential Comment RBC Morphology Polychromasia Basophilic Stippling Sodium 139 Potassium 3.8 Chloride 109 H Carbon Dioxide 19.0 L Anion Gap 11.0 BUN 32 H Creatinine 2.97 H Estimated GFR/1.73 m2 21.49 Glucose 86 Lactate Calcium 8.2 L Magnesium 1.6 L Total Bilirubin 0.4 AST 6 L ALT < 6 L Alkaline Phosphatase 171 H Troponin I Total Protein 6.1 L Albumin 2.1 L Lipase Urine Color Yellow Urine Clarity Cloudy Urine pH 8.5 H Ur Specific [place] 1.015 Urine Protein 100 H Urine Ketones Negative Urine Blood Large H Urine Nitrite Negative Urine Bilirubin Negative Urine Urobilinogen 0.2 Ur Leukocyte Esterase Large H Urine RBC >50 H Urine WBC >50 Ur Epithelial Cells Few Urine Crystals Rare triple phos Urine Bacteria Many Urine Casts Negative Urine Mucus Moderate Urine Other Negative Ur Culture Indicated? Yes Urine Glucose Negative
--- NOTE | 2019-02-21 14:33 | W.PM.PROGNOT ---
Date of Service Date of service: 02/21/19 Time of Service: 14:34 Assessment and Plan Assessment and plan (1) UTI (urinary tract infection) due to Enterococcus: Status: Acute Assessment and plan: Still febrile today; urine C&S mixed, but has a urostomy/ileal conduit - ?colonization (2) RUQ pain: Status: Acute Assessment and plan: ? due to liver mets, ?cholecystitis, ?musculoskeletal - obtain US. (3) Malignant neoplasm metastatic from bladder: Status: Chronic Assessment and plan: New nodules seen in liver on CT - obtain US. Perhaps the explanation for his RUQ pain. (4) COPD (chronic obstructive pulmonary disease): Status: Chronic Assessment and plan: Not in acute exacerbation. Follow up as outpatient. (5) Pulmonary nodule seen on imaging study: Status: Chronic Assessment and plan: Will need outpatient follow up. Mets vs new primary. (6) Pulmonary hypertension: Status: Chronic Assessment and plan: Monitor volume status carefully while on IVF. (7) CKD (chronic kidney disease): Status: Acute Assessment and plan: Better than baseline. Monitor while on IVF. (8) DVT prophylaxis: Status: Acute Assessment and plan: Heparin SC (9) Discharge planning issues: Status: Acute Assessment and plan: Full code Palliative care saw patient Subjective Subjective Interval history since last seen: Mr Rosas feels better today, but continues to report RUQ pain. He is worried it might be his gallbladder but also admits to coughing and dry heaving a lot, so it could be muscular. Denies dizziness, chest pain, shortness of breath. Nausea this am - resolved. Exam Narrative Exam Narrative: General: very pleasant middle-aged male, actually looks better today than the last time I saw him, A&OX3, smiling HEENT: EOMI, dry MM Heart: RRR, no m/r/g Lungs: Diminished breath sounds B GI: abdomen is soft, tender in RUQ; urostomy right mid-abdomen with output Extremities: no e/c/c BLE's Objective Objective Clinical Data: Abnormal lab results 02/20/19 02/20/19 02/20/19 Range/Units 20:28 20:28 20:42 WBC 17.49 H (4.4-10.8) k/cumm RBC 3.77 L (4.50-6.00) m/cumm Hgb 11.1 L (13.5-17.5) g/dL Hct 34.5 L (40.0-50.0) % MCHC (32.0-36.0) g/dL Plt Count 544 H (130-400) x1000/uL Absolute Neutrophils 14.34 H (1.2-6.7) k/cumm Absolute Monocytes 1.57 H (0.11-0.7) k/cumm Sodium 133 L (136-145) mmol/L Chloride (98-107) mmol/L Carbon Dioxide 18.3 L (21.0-32.0) mmol/L Anion Gap 14.7 H (3-11) mmol/L BUN 34 H (7-18) mg/dL Creatinine 3.12 H (0.70-1.30) mg/dL Calcium (8.5-10.1) mg/dL Magnesium 1.6 L (1.8-2.4) mg/dL AST 8 L (15-37) U/L ALT 10 L (16-63) U/L Alkaline Phosphatase 218 H (46-116) U/L Total Protein (6.4-8.2) g/dL Albumin 2.7 L (3.4-5.0) g/dL Lipase 52 L (73-393) U/L Urine pH 8.5 H (5-8) Urine Protein 100 H (Negative) mg/dL Urine Blood Large H (Negative) Ur Leukocyte Esterase Large H (Negative) Urine RBC >50 H (0-2) 02/21/19 02/21/19 Range/Units 07:03 07:03 WBC (4.4-10.8) k/cumm RBC 3.17 L (4.50-6.00) m/cumm Hgb 9.1 L (13.5-17.5) g/dL Hct 29.6 L (40.0-50.0) % MCHC 30.7 L (32.0-36.0) g/dL Plt Count 439 H (130-400) x1000/uL Absolute Neutrophils (1.2-6.7) k/cumm Absolute Monocytes (0.11-0.7) k/cumm Sodium (136-145) mmol/L Chloride 109 H (98-107) mmol/L Carbon Dioxide 19.0 L (21.0-32.0) mmol/L Anion Gap (3-11) mmol/L BUN 32 H (7-18) mg/dL Creatinine 2.97 H (0.70-1.30) mg/dL Calcium 8.2 L (8.5-10.1) mg/dL Magnesium 1.6 L (1.8-2.4) mg/dL AST 6 L (15-37) U/L ALT < 6 L (16-63) U/L Alkaline Phosphatase 171 H (46-116) U/L Total Protein 6.1 L (6.4-8.2) g/dL Albumin 2.1 L (3.4-5.0) g/dL Lipase (73-393) U/L Urine pH (5-8) Urine Protein (Negative) mg/dL Urine Blood (Negative) Ur Leukocyte Esterase (Negative) Urine RBC (0-2) Vital Signs Temperature 37.9 C H 02/21/19 13:10 Temperature Source Temporal Artery Scan 02/21/19 13:10 Pulse 86 02/21/19 11:31 Pulse Rhythm Regular 02/20/19 23:11 Pulse 100 H 02/20/19 22:20 Respiratory Rate 18 02/21/19 11:31 Respiratory Effort Non-Labored 02/20/19 23:11 Respiratory Depth Normal 02/20/19 23:11 Respiratory Pattern Normal 02/20/19 23:11 Blood Pressure 116/75 02/21/19 11:31 Blood Pressure Mean 77 02/20/19 22:15 Blood Pressure Position Sitting 02/20/19 20:10 Pulse Oximetry 97 02/21/19 11:31 Oxygen Delivery Method Room Air 02/21/19 11:31 Oxygen Flow Rate 0 02/21/19 11:31 Pain Level 5 02/21/19 14:07 Comment 02/21/19 13:10 Intake & Output 02/20/19 02/21/19 02/21/19 23:59 11:59 23:59 Intake Total 50 / 50 1360 / 1360 Balance 50 / 50 1360 / 1360 Weight 53.4 kg 53.4 kg Intake: IV 50 / 50 1000 / 1000 Oral 360 / 360 Other: Urine Appearance Clear Sediment Stool Size Moderate Stool Characteristics Soft Liquid Laboratory Results WBC 9.59 k/cumm (4.4-10.8) D 02/21/19 07:03 RBC 3.17 m/cumm (4.50-6.00) L 02/21/19 07:03 Hgb 9.1 g/dL (13.5-17.5) L 02/21/19 07:03 Hct 29.6 % (40.0-50.0) L 02/21/19 07:03 MCV 93.4 fL (80-95) 02/21/19 07:03 MCH 28.7 pg (27.0-33.0) 02/21/19 07:03 MCHC 30.7 g/dL (32.0-36.0) L 02/21/19 07:03 RDW 14.0 % (11.8-14.1) 02/21/19 07:03 Plt Count 439 x1000/uL (130-400) H 02/21/19 07:03 MPV 9.4 fL (8.0-11.0) 02/21/19 07:03 Immature Gran % 0.0 02/20/19 20:28 Neutrophils % 82.0 02/20/19 20:28 Band Neutrophils % 0.0 % 02/20/19 20:28 Lymphocytes % 8.0 02/20/19 20:28 Atypical Lymphs % 0 02/20/19 20:28 Monocytes % 9.0 02/20/19 20:28 Eosinophils % 1.0 02/20/19 20:28 Basophils % 0.0 02/20/19 20:28 Absolute Neutrophils 14.34 k/cumm (1.2-6.7) H 02/20/19 20:28 Absolute Lymphocytes 1.40 k/cumm (1.2-3.4) 02/20/19 20:28 Absolute Monocytes 1.57 k/cumm (0.11-0.7) H 02/20/19 20:28 Absolute Eosinophils 0.17 k/cumm (0.0-0.7) 02/20/19 20:28 Absolute Basophils 0.00 k/cumm (0.0-0.2) 02/20/19 20:28 Differential Comment Manual differential 02/20/19 20:28 RBC Morphology See below 02/20/19 20:28 Polychromasia Present 02/20/19 20:28 Basophilic Stippling Present 02/20/19 20:28 Sodium 139 mmol/L (136-145) 02/21/19 07:03 Potassium 3.8 mmol/L (3.5-5.1) 02/21/19 07:03 Chloride 109 mmol/L (98-107) H 02/21/19 07:03 Carbon Dioxide 19.0 mmol/L (21.0-32.0) L 02/21/19 07:03 Anion Gap 11.0 mmol/L (3-11) 02/21/19 07:03 BUN 32 mg/dL (7-18) H 02/21/19 07:03 Creatinine 2.97 mg/dL (0.70-1.30) H 02/21/19 07:03 Estimated GFR/1.73 m2 21.49 (mL/min/1.73m2) 02/21/19 07:03 Glucose 86 mg/dL (70-100) 02/21/19 07:03 Lactate 1.1 mmol/L (0.6-1.4) 02/20/19 20:28 Calcium 8.2 mg/dL (8.5-10.1) L 02/21/19 07:03 Magnesium 1.6 mg/dL (1.8-2.4) L 02/21/19 07:03 Total Bilirubin 0.4 mg/dL (0.2-1.0) 02/21/19 07:03 AST 6 U/L (15-37) L 02/21/19 07:03 ALT < 6 U/L (16-63) L 02/21/19 07:03 Alkaline Phosphatase 171 U/L (46-116) H 02/21/19 07:03 Troponin I < 0.05 ng/mL (0.00-0.06) 02/20/19 20:28 Total Protein 6.1 g/dL (6.4-8.2) L 02/21/19 07:03 Albumin 2.1 g/dL (3.4-5.0) L 02/21/19 07:03 Lipase 52 U/L (73-393) L 02/20/19 20:28 Urine Color Yellow (Yellow) 02/20/19 20:42 Urine Clarity Cloudy (Clear) 02/20/19 20:42 Urine pH 8.5 (5-8) H 02/20/19 20:42 Ur Specific [place] 1.015 (1.005-1.025) 02/20/19 20:42 Urine Protein 100 mg/dL (Negative) H 02/20/19 20:42 Urine Ketones Negative mg/dL (Negative) 02/20/19 20:42 Urine Blood Large (Negative) H 02/20/19 20:42 Urine Nitrite Negative (Negative) 02/20/19 20:42 Urine Bilirubin Negative (Negative) 02/20/19 20:42 Urine Urobilinogen 0.2 EU/dL (Up TO 0.2) 02/20/19 20:42 Ur Leukocyte Esterase Large (Negative) H 02/20/19 20:42 Urine RBC >50 (0-2) H 02/20/19 20:42 Urine WBC >50 HPF (0-5) 02/20/19 20:42 Ur Epithelial Cells Few HPF (Negative) 02/20/19 20:42 Urine Crystals Rare triple phos HPF (Negative) 02/20/19 20:42 Urine Bacteria Many HPF (Negative) 02/20/19 20:42 Urine Casts Negative LPF (Negative) 02/20/19 20:42 Urine Mucus Moderate (Negative) 02/20/19 20:42 Urine Other Negative (Negative) 02/20/19 20:42 Ur Culture Indicated? Yes 02/20/19 20:42 Urine Glucose Negative mg/dL (Negative) 02/20/19 20:42
--- NOTE | 2019-02-21 16:15 | NS.NUTBLAN_ITS ---
DESCRIPTION: Appreciate nutrition consult for Mr. Rosas who is hospitalized with symptoms secondary to cancer treatment. BMI 17.9 Estimated basal expenditure: 1,230 kcal Eating 100% of his meals eating normal amount some meals, other times desires small portions and easily digested food. NUTRITION DIAGNOSIS: Inadequate caloric intake secondary to symptoms from chemotherapy as indicated by BMI of 17.9 ASSESSMENT: Mr. Rosas is eating well today thus adequate caloric intake here for weight maintenance. 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 Attempted to visit today but he was unavailable. PLAN: Will meet tomorrow to encourage higher protein/calorie food choices that he can tolerate. Will monitor weight.
--- NOTE | 2019-02-21 16:16 | INITIAL_ITS ---
- If Service Date Differs Date of service: 02/21/19 Time of Service: 16:16 Care Management Initial Assess REASON FOR HOSPITALIZATION:: Metastatic bladder cancer, fever, UTI, and enteritis. PAST MEDICAL HISTORY/PAST SURGICAL HISTORY:: Medical History: Acute sinus infection, anemia, ASCVD (arteriosclerotic cardiovascular disease), bladder cancer, bladder mass, cardiomyopathy, CHF (congestive heart failure), chronic kidney disease, stage 5, chronic pain due to neoplasm, cigarette smoker one half pack a day or less, CKD (chronic kidney disease), COPD (chronic obstructive pulmonary disease), emphysema, family dysfunction, left lower lobe pulmonary nodule, lung mass, malignant neoplasm metastatic from bladder, osteoarthritis, palliative care patient, symptomatic anemia, unintentional weight loss, uremia. Surgical History: H/O prostatectomy, h/o total cystectomy, history of ankle surgery, left ankle repair, 3 pins, history of biopsy of bladder, previous back surgery, discetomy to four discs (lumbar spine). PREVIOUS FUNCTIONAL STATUS/SOCIAL/FAMILY SUPPORTS:: Cornelio resides in [place] with his 7 year old son and his ex- Brittany. 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 Cornelio states he does the cooking and cleaning at home. He is independent in the community, drives, and manages his ADLs. CURRENT FUNCTIONAL STATUS:: Cornelio is lying in bed when this meets with him. He is pleasant and easily engages in conversation. Cornelio talks about his son at great length and shares his concerns for his son's well-being once he is no longer able to care for him. He states arrangements have been made for his ex- to look after his son after his . ADVANCE DIRECTIVES:: None on file at [facility]. Cornelio reports he has a completed Advance Directive at home but it has not been registered yet. Has patient been provided with information about the portal?: Yes Did the patient sign up for the portal?: No CODE STATUS:: Full Code INSURANCE COVERAGE / FINANCIAL ISSUES:: Medicaid. CURRENT HOME/COMMUNITY SERVICES/EQUIPMENT:: Cornelio states he has a walker, cane, and wheelchair at home but says he doesn't use any of them. He is also receiving palliative care. PRIMARY CARE PHYSICIAN:: Florence Johnson MD POTENTIAL DISCHARGE NEEDS:: Follow-up appointment with PCP. PATIENT/FAMILY EDUCATION NEEDS:: Discharge plan, limitations, and follow-up plan of care, including ask me 3 and self-management. ANTICIPATED BARRIERS TO DISCHARGE:: None identified at this time. TRANSPORTATION:: Cornelio states he will drive himself home upon discharge. His truck is in the [facility] parking lot. PLAN:: Cornelio will be discharged home when medically cleared by provider. Anticipate no additional services needed at time of discharge. Patient will drive himself home in his truck, which is currently parked in the hospital's parking lot.
[2019-02-21] MEDS: Atorvastatin 40 MG TAB 80 MG PO (19:49)
[2019-02-21] MEDS: cefTRIAXone 1 GM/50 ML BAG IVPB (21:33)
[2019-02-22] MEDS: Normal Saline 1,000 ML 125 ML IV ×2 (00:31→08:39)
--- NOTE | 2019-02-22 01:16 | NUR.NOTE ---
Nursing Note: ICE SKATING COACH rendered sponge bath and shavings to this pt. Nepppppppppphrostomy appliance changed and connected to urinary bag, draining cloudy liquid in good amount. Nicotrol given and with good effect. Call lights at reach.
[2019-02-22 04:41] VITALS: BP 113/74; PULSE 87; RESP 18; TEMP 36.4; O2SAT 97
[2019-02-22] MEDS: oxyCODONE 15 MG TAB PO ×3 (06:20→21:51)
[2019-02-22 07:15] VITALS: BP 106/70; PULSE 85; RESP 14; TEMP 36.9; O2SAT 96
[2019-02-22 07:17] LABS: Abs Immature Grans 0.02 k/cumm (0.0-0.09); Absolute Basophil Count 0.02 k/cumm (0.0-0.2); Absolute Eosinophil Count 0.32 k/cumm (0.0-0.7); Absolute Lymphocyte Count 0.67 k/cumm (1.2-3.4); Absolute Monocyte Count 0.75 k/cumm (0.11-0.7); Absolute Neutrophil Count 4.42 k/cumm (1.2-6.7); Basophils % 0.3; Eosinophils % 5.2; HCT 24.8 % (40.0-50.0); HGB 7.7 g/dL (13.5-17.5); Immature Grans % 0.3; Lymphocytes % 10.8; Mean Corpuscular Hemoglobin 29.1 pg (27.0-33.0); Mean Corpuscular Volume 93.6 fL (80-95); Mean Platelet Volume 9.3 fL (8.0-11.0); Monocytes % 12.1; Neutrophils % 71.3; Platelet Count 372 x1000/uL (130-400); RBC 2.65 m/cumm (4.50-6.00)
[2019-02-22 07:24] LABS: Anion Gap 9.3 mmol/L (3-11); BUN 37 mg/dL (7-18); CO2 19.7 mmol/L (21.0-32.0); CREATININE 2.87 mg/dL (0.70-1.30); Calcium 7.9 mg/dL (8.5-10.1); Chloride 109 mmol/L (98-107); Estimated GFR 22.35 (mL/min/1.73m2); Glucose 84 mg/dL (70-100); Magnesium 1.5 mg/dL (1.8-2.4); Potassium 3.7 mmol/L (3.5-5.1); Sodium 138 mmol/L (136-145)
--- NOTE | 2019-02-22 09:30 | DI.US_ITS ---
EXAM: US ABDOMEN CLINICAL HISTORY: RUQ pain, ?hepatic mets, ?cholecystitis. TECHNIQUE: Ultrasound performed using standard protocol. COMPARISON: US carotid from 10/03/2018 FINDINGS: The aorta and vena cava are unremarkable. The liver is enlarged measuring up to 19.4 cm. Portal ve in is intact. There is no evidence of gallstones or biliary dilatation. Pancreas is normal. Multiple granulomata are identified in the spleen. Right kidney measures 10.7 cm, the left kidney measures 7 .4 cm and is hypoplastic. There is mild prominence of the renal pelvis consistent with mild hydronep hrosis. Note is made of multiple hepatic nodules, the largest in the right hepatic lobe measuring up to 4 x 4.7 x 4.2 cm. Color flow is identified. IMPRESSION: Further evaluation of this patient with a multiphasic CT examination is suggested to further assess t he status of the liver.
[2019-02-22 11:00] VITALS: BP 116/81; PULSE 93; RESP 16; TEMP 37.1; O2SAT 95
[2019-02-22] MEDS: Normal Saline Flush 10 ML SYR IVP ×2 (11:49→18:33)
[2019-02-22] MEDS: MAGNESIUM SULFATE 4 GM/100 ML BAG IVPB (11:49)
[2019-02-22] MEDS: Magnesium Oxide 400 MG TAB PO ×2 (11:49→20:16)
--- NOTE | 2019-02-22 12:56 | PDOC.CMPRO ---
- If Service Date Differs Date of service: 02/22/19 Time of Service: 12:56 Care Management Progress Note S/O: Cornelio remains in acute status anticipate no changes today. A:Cornelio is a 63 year old male with a history of metastatic bladder cancer, admitted with fever and UTI P:Cornelio will be discharged home with resumption of Palliative care when he is discharged. Cornelio will drive himself home at time of discharged
[2019-02-22 14:29] LABS: HCT 29.5 % (40.0-50.0); HGB 9.2 g/dL (13.5-17.5)
[2019-02-22 16:00] VITALS: BP 138/86; PULSE 97; RESP 18; TEMP 37.9; O2SAT 95
[2019-02-22 16:10] VITALS: TEMP 37.9
[2019-02-22] MEDS: Acetaminophen 325 MG TAB 650 MG PO (16:10)
[2019-02-22 16:51] VITALS: TEMP 37.9
[2019-02-22] MEDS: Ondansetron O.D.T. 4 MG TABEF PO (16:51)
--- NOTE | 2019-02-22 17:52 | PGE_ITS ---
Date of Service Date of service: 02/22/19 Time of Service: 17:53 Assessment and Plan Assessment and plan (1) UTI (urinary tract infection) due to Enterococcus: Status: Acute Assessment and plan: Fever just recurred. C&S unfortunately mixed. Will change antibiotics to levofloxacin. (2) RUQ pain: Status: Acute Assessment and plan: ? due to liver mets or MSK. Patient informed of findings on Ultrasound today and that he will have to have a CT of his abdomen as outpatient. (3) Malignant neoplasm metastatic from bladder: Status: Chronic Assessment and plan: As above (4) COPD (chronic obstructive pulmonary disease): Status: Chronic Assessment and plan: Not in acute exacerbation. Follow up as outpatient. (5) Pulmonary nodule seen on imaging study: Status: Chronic Assessment and plan: Will need outpatient follow up. Mets vs new primary. (6) Pulmonary hypertension: Status: Chronic Assessment and plan: D/c IVF. (7) CKD (chronic kidney disease): Status: Acute Assessment and plan: Better than baseline. Monitor while on IVF. (8) DVT prophylaxis: Status: Acute Assessment and plan: Heparin SC (9) Discharge planning issues: Status: Acute Assessment and plan: Full code Palliative care saw patient Subjective Subjective Interval history since last seen: Mr Andrew does not feel well today. He states that the magnesium infusion is making him nauseated. He refuses zofran IV but states that PO zofran works for him. He feels like his is running a fever (his temperature is 37.9). Denies dizziness, chest pain, shortness of breath. Exam Narrative Exam Narrative: General: very pleasant middle-aged male, but much more irritable today, A&Ox3 HEENT: EOMI, MMM Heart: RRR, no m/r/g Lungs: Diminished breath sounds B GI: abdomen is soft, tender in RUQ; urostomy right mid-abdomen with output Extremities: no e/c/c BLE's Objective Objective Clinical Data: Abnormal lab results 02/22/19 02/22/19 02/22/19 Range/Units 06:50 06:50 14:10 RBC 2.65 L (4.50-6.00) m/cumm Hgb 7.7 L 9.2 L (13.5-17.5) g/dL Hct 24.8 L 29.5 L (40.0-50.0) % MCHC 31.0 L (32.0-36.0) g/dL Absolute Lymphocytes 0.67 L (1.2-3.4) k/cumm Absolute Monocytes 0.75 H (0.11-0.7) k/cumm Chloride 109 H (98-107) mmol/L Carbon Dioxide 19.7 L (21.0-32.0) mmol/L BUN 37 H (7-18) mg/dL Creatinine 2.87 H (0.70-1.30) mg/dL Calcium 7.9 L (8.5-10.1) mg/dL Magnesium 1.5 L (1.8-2.4) mg/dL Vital Signs Temperature 37.9 C H 02/22/19 16:51 Temperature Source Tympanic 02/22/19 11:00 Pulse 93 H 02/22/19 11:00 Pulse Rhythm Regular 02/22/19 17:44 Pulse 100 H 02/20/19 22:20 Respiratory Rate 16 02/22/19 11:00 Respiratory Effort Non-Labored 02/22/19 17:44 Respiratory Depth Normal 02/22/19 17:44 Respiratory Pattern Normal 02/22/19 17:44 Blood Pressure 116/81 02/22/19 11:00 Blood Pressure Mean 77 02/20/19 22:15 Blood Pressure Position Sitting 02/20/19 20:10 Pulse Oximetry 95 02/22/19 11:00 Oxygen Delivery Method Room Air 02/22/19 11:00 Oxygen Flow Rate 0 02/22/19 11:00 Pain Level 4 02/22/19 16:51 Comment 02/22/19 07:15 Intake & Output 02/21/19 02/22/19 02/22/19 23:59 11:59 23:59 Intake Total 275.666 / 4111.666 2222.917 / 2322.917 100 / 2322.917 Output Total 800 / 1300 500 / 1300 Balance 2751.666 / 4111.666 1422.917 / 1022.917 -400 / 1022.917 Weight 55.2 kg Intake: IV 1990.666 / 2991.666 2222.917 / 2322.917 100 / 2322.917 Oral 760 / 1120 Output: Drainage 800 / 1300 500 / 1300 Right Lower Abdomen 800 / 1300 500 / 1300 Other: Urine Appearance Clear Clear Clear Mucous Threads Mucous Threads Mucous Threads Laboratory Results WBC 6.20 k/cumm (4.4-10.8) D 02/22/19 06:50 RBC 2.65 m/cumm (4.50-6.00) L 02/22/19 06:50 Hgb 9.2 g/dL (13.5-17.5) L 02/22/19 14:10 Hct 29.5 % (40.0-50.0) L 02/22/19 14:10 MCV 93.6 fL (80-95) 02/22/19 06:50 MCH 29.1 pg (27.0-33.0) 02/22/19 06:50 MCHC 31.0 g/dL (32.0-36.0) L 02/22/19 06:50 RDW 14.0 % (11.8-14.1) 02/22/19 06:50 Plt Count 372 x1000/uL (130-400) 02/22/19 06:50 MPV 9.3 fL (8.0-11.0) 02/22/19 06:50 Immature Gran % 0.3 02/22/19 06:50 Neutrophils % 71.3 02/22/19 06:50 Band Neutrophils % 0.0 % 02/20/19 20:28 Lymphocytes % 10.8 02/22/19 06:50 Atypical Lymphs % 0 02/20/19 20:28 Monocytes % 12.1 02/22/19 06:50 Eosinophils % 5.2 02/22/19 06:50 Basophils % 0.3 02/22/19 06:50 Absolute Neutrophils 4.42 k/cumm (1.2-6.7) 02/22/19 06:50 Absolute Lymphocytes 0.67 k/cumm (1.2-3.4) L 02/22/19 06:50 Absolute Monocytes 0.75 k/cumm (0.11-0.7) H 02/22/19 06:50 Absolute Eosinophils 0.32 k/cumm (0.0-0.7) 02/22/19 06:50 Absolute Basophils 0.02 k/cumm (0.0-0.2) 02/22/19 06:50 Differential Comment Manual differential 02/20/19 20:28 RBC Morphology See below 02/20/19 20:28 Polychromasia Present 02/20/19 20:28 Basophilic Stippling Present 02/20/19 20:28 Sodium 138 mmol/L (136-145) 02/22/19 06:50 Potassium 3.7 mmol/L (3.5-5.1) 02/22/19 06:50 Chloride 109 mmol/L (98-107) H 02/22/19 06:50 Carbon Dioxide 19.7 mmol/L (21.0-32.0) L 02/22/19 06:50 Anion Gap 9.3 mmol/L (3-11) 02/22/19 06:50 BUN 37 mg/dL (7-18) H 02/22/19 06:50 Creatinine 2.87 mg/dL (0.70-1.30) H 02/22/19 06:50 Estimated GFR/1.73 m2 22.35 (mL/min/1.73m2) 02/22/19 06:50 Glucose 84 mg/dL (70-100) 02/22/19 06:50 Lactate 1.1 mmol/L (0.6-1.4) 02/20/19 20:28 Calcium 7.9 mg/dL (8.5-10.1) L 02/22/19 06:50 Magnesium 1.5 mg/dL (1.8-2.4) L 02/22/19 06:50 Total Bilirubin 0.4 mg/dL (0.2-1.0) 02/21/19 07:03 AST 6 U/L (15-37) L 02/21/19 07:03 ALT < 6 U/L (16-63) L 02/21/19 07:03 Alkaline Phosphatase 171 U/L (46-116) H 02/21/19 07:03 Troponin I < 0.05 ng/mL (0.00-0.06) 02/20/19 20:28 Total Protein 6.1 g/dL (6.4-8.2) L 02/21/19 07:03 Albumin 2.1 g/dL (3.4-5.0) L 02/21/19 07:03 Lipase 52 U/L (73-393) L 02/20/19 20:28 Urine Color Yellow (Yellow) 02/20/19 20:42 Urine Clarity Cloudy (Clear) 02/20/19 20:42 Urine pH 8.5 (5-8) H 02/20/19 20:42 Ur Specific [place] 1.015 (1.005-1.025) 02/20/19 20:42 Urine Protein 100 mg/dL (Negative) H 02/20/19 20:42 Urine Ketones Negative mg/dL (Negative) 02/20/19 20:42 Urine Blood Large (Negative) H 02/20/19 20:42 Urine Nitrite Negative (Negative) 02/20/19 20:42 Urine Bilirubin Negative (Negative) 02/20/19 20:42 Urine Urobilinogen 0.2 EU/dL (Up TO 0.2) 02/20/19 20:42 Ur Leukocyte Esterase Large (Negative) H 02/20/19 20:42 Urine RBC >50 (0-2) H 02/20/19 20:42 Urine WBC >50 HPF (0-5) 02/20/19 20:42 Ur Epithelial Cells Few HPF (Negative) 02/20/19 20:42 Urine Crystals Rare triple phos HPF (Negative) 02/20/19 20:42 Urine Bacteria Many HPF (Negative) 02/20/19 20:42 Urine Casts Negative LPF (Negative) 02/20/19 20:42 Urine Mucus Moderate (Negative) 02/20/19 20:42 Urine Other Negative (Negative) 02/20/19 20:42 Ur Culture Indicated? Yes 02/20/19 20:42 Urine Glucose Negative mg/dL (Negative) 02/20/19 20:42 US abdomen: The aorta and vena cava are unremarkable. The liver is enlarged measuring up to 19.4 cm. Portal vein is intact. There is no evidence of gallstones or biliary dilatation. Pancreas is normal. Multiple granulomata are identified in the spleen. Right kidney measures 10.7 cm, the left kidney measures 7.4 cm and is hypoplastic. There is mild prominence of the renal pelvis consistent with mild hydronephrosis. Note is made of multiple hepatic nodules, the largest in the right hepatic lobe measuring up to 4 x 4.7 x 4.2 cm. Color flow is identified. Further evaluation of this patient with a multiphasic CT examination is suggested to further assess the status of the liver.
[2019-02-22] MEDS: levoFLOXacin 500 MG/100 ML BAG 100 MG IVPB (18:33)
[2019-02-22] MEDS: Atorvastatin 40 MG TAB 80 MG PO (20:15)
[2019-02-23] VITALS: BP 150/88; PULSE 95; RESP 18; TEMP 37.2; O2SAT 95
[2019-02-23] MEDS: Ondansetron 4 MG/2 ML VIAL IVP (00:01)
[2019-02-23] MEDS: Normal Saline Flush 10 ML SYR IVP ×3 (00:01→21:04)
[2019-02-23 03:38] VITALS: BP 111/73; PULSE 82; RESP 16; TEMP 37; O2SAT 96
[2019-02-23] MEDS: oxyCODONE 15 MG TAB PO ×3 (05:54→21:05)
[2019-02-23 07:20] VITALS: BP 129/81; PULSE 82; RESP 17; TEMP 36.8; O2SAT 96
[2019-02-23 08:54] LABS: Abs Immature Grans 0.02 k/cumm (0.0-0.09); Absolute Basophil Count 0.01 k/cumm (0.0-0.2); Absolute Eosinophil Count 0.31 k/cumm (0.0-0.7); Absolute Lymphocyte Count 0.59 k/cumm (1.2-3.4); Absolute Monocyte Count 0.84 k/cumm (0.11-0.7); Absolute Neutrophil Count 6.93 k/cumm (1.2-6.7); Basophils % 0.1; Eosinophils % 3.6; HCT 25.2 % (40.0-50.0); Immature Grans % 0.2; Lymphocytes % 6.8; Mean Corp. HGB Concentration 31.7 g/dL (32.0-36.0); Mean Corpuscular Hemoglobin 29.3 pg (27.0-33.0); Mean Corpuscular Volume 92.3 fL (80-95); Mean Platelet Volume 8.9 fL (8.0-11.0); Monocytes % 9.7; Neutrophils % 79.6; Platelet Count 384 x1000/uL (130-400); RBC 2.73 m/cumm (4.50-6.00); RBC Distribution Width 13.9 % (11.8-14.1)
[2019-02-23 09:04] LABS: Anion Gap 8.4 mmol/L (3-11); BUN 33 mg/dL (7-18); CO2 22.6 mmol/L (21.0-32.0); CREATININE 3.02 mg/dL (0.70-1.30); Calcium 8.2 mg/dL (8.5-10.1); Chloride 104 mmol/L (98-107); Estimated GFR 21.08 (mL/min/1.73m2); Glucose 125 mg/dL (70-100); Magnesium 2.4 mg/dL (1.8-2.4); Potassium 3.6 mmol/L (3.5-5.1); Sodium 135 mmol/L (136-145)
[2019-02-23 09:09] LABS: Diff Comment RBC Morph Reviewed
[2019-02-23 09:10] LABS: Hypochromasia 2+
[2019-02-23 09:11] LABS: Poikilocytes 2+
[2019-02-23 11:11] VITALS: BP 120/76; PULSE 79; RESP 17; TEMP 37; O2SAT 96
[2019-02-23] MEDS: Pantoprazole 40 MG VIAL IVP (11:32)
[2019-02-23] MEDS: Sucralfate 1 GM TAB PO ×2 (11:32→17:18)
--- NOTE | 2019-02-23 12:14 | PHARADMIT ---
Addendum entered by Blaise Mota III 02/25/19 14:33: Pharmacy Note Subjective Patient spiked fever (39C) overnight after switching to Cefuroxime PO. MD changed to IV ABX therapy. Patient has spupra-pubic cath, (??Vector) Objective Temp-38.2C SCr-3.58 WBC-10.74 Lytes,H&H,Plts-OK Wgt-52.6 kg small BM today. Assessment Meropenem & Vancomycin IV started, Ceftin PO dc;d Plan Folow SCr and Vancomycin levels Addendum entered by Blaise Mota III 02/24/19 12:22: Pharmacy Note Subjective Metastatic cancer to lungs, liver and bladder. Not interested in surgery Objective VS-OK SCr-3.36 (up), K+4.2 Na-138 H&H-8.3/27.3 WBC-6.77 Assessment Levaquin IV changed to PO Cefuroxime 500mg po BID Plan May be discharged home tomorrow Original Note: Admission Pharmacy Clinical Review Metastatic bladder CA, Fever, UTI Code Status Full Code Current Weight 55.2 kg Renally Cleared and Narrow Therapeutic Index Meds CrCl 19 ml/min - levofloxacin changed to 250 q48h QTc Value / Action Taken QTc 451 BP Control, Fever BP 129/81 - fever of 37.9 yesterday, afebrile today Electrolytes reviewed Na 135, K+ 3.6, Mag 2.4 (up from 1.5) DVT Prophylaxis None Opiate Usage / Scheduled Bowel Regimen Ordered Plt/SCr for Heparin / Enoxaparin Plt 384, Scr 3.02 INR for Warfarin H/H stable, WBC/Bands H/H 8/25.2, WBC 8.7 (17.49 on admission) Antibiotic appropriateness Changed from ceftriaxone to levofloxacin after fever spike on day 2 of ceftriaxone Cultures and Sensitivities Surgical ABX d/c within 24 hr DM control / Insulin Dosing Heart Failure (Check EF%) (EDMUND's, B-Block, Diuretics) Carvedilol (home med list) IV to PO Switch DC on oral abx once stabilized Home Meds Reviewed Home Meds Not Ordered Carvedilol Comments Continue to monitor vitals, Scr/kidney fxn
--- NOTE | 2019-02-23 14:08 | W.PM.PROGNOT ---
Date of Service Date of service: 02/23/19 Time of Service: 14:08 Assessment and Plan Assessment and plan (1) UTI (urinary tract infection) due to Enterococcus: Status: Acute Assessment and plan: Consult urology for possible change of ureteral stent if it could be done here. Certainly could be contributing to his sepsis. Continue levofloxacin. Culture mixed. UTI was present on admission. (2) RUQ pain: Status: Acute Assessment and plan: ? due to liver mets or MSK. Patient informed of findings on Ultrasound today and that he will have to have a CT of his abdomen as outpatient. (3) Malignant neoplasm metastatic from bladder: Status: Chronic Assessment and plan: As above (4) COPD (chronic obstructive pulmonary disease): Status: Chronic Assessment and plan: Not in acute exacerbation. Follow up as outpatient. (5) Pulmonary nodule seen on imaging study: Status: Chronic Assessment and plan: Will need outpatient follow up. Mets vs new primary. Patient states he just finished radiation to the lungs. (6) Pulmonary hypertension: Status: Chronic Assessment and plan: Follow up as outpatient (7) CKD (chronic kidney disease): Status: Acute Assessment and plan: Better than baseline.Continue to monitor (8) DVT prophylaxis: Status: Acute Assessment and plan: Chemical dvt ppx on hold due to gastroccult positive emesis (9) Discharge planning issues: Status: Acute Assessment and plan: Full code Palliative care saw patient Subjective Subjective Interval history since last seen: Patient vomited 900 cc of gastroccult positive contents yesterday. He strongly feels it was the magnesium that did it and he refuses to have any more magnesium infused, ever. He still has some nausea, but wants his diet advanced from clear liquids. He is trying carafate and protonix, like we asked him to. He brings up the fact that his ureteral stent was changed 6-8 months ago, but it should be changed every 3-4 months. He is interested in seeing a urologist here. He also wants us to help him get an appointment at [facility]. Denies dizziness, chest pain. States his nasal congestion and cough are getting better. no shortness of breath. Continues to report RUQ pain - right above his urostomy. Exam Narrative Exam Narrative: General: very pleasant middle-aged male, A&Ox3, in better spirits HEENT: EOMI, MMM Heart: RRR, no m/r/g Lungs: Diminished breath sounds B, but coarse GI: abdomen is soft, tender in RUQ; urostomy right mid-abdomen with output; black-colored ureteral stent visible Extremities: no e/c/c BLE's Objective Objective Clinical Data: Abnormal lab results 02/22/19 02/23/19 02/23/19 Range/Units 14:10 08:40 08:40 RBC 2.73 L (4.50-6.00) m/cumm Hgb 9.2 L 8.0 L (13.5-17.5) g/dL Hct 29.5 L 25.2 L (40.0-50.0) % MCHC 31.7 L (32.0-36.0) g/dL Absolute Neutrophils 6.93 H (1.2-6.7) k/cumm Absolute Lymphocytes 0.59 L (1.2-3.4) k/cumm Absolute Monocytes 0.84 H (0.11-0.7) k/cumm Sodium 135 L (136-145) mmol/L BUN 33 H (7-18) mg/dL Creatinine 3.02 H (0.70-1.30) mg/dL Glucose 125 H (70-100) mg/dL Calcium 8.2 L (8.5-10.1) mg/dL Vital Signs Temperature 37.0 C 02/23/19 11:11 Temperature Source Tympanic 02/23/19 11:11 Pulse 79 02/23/19 11:11 Pulse Rhythm Regular 02/23/19 12:34 Pulse 100 H 02/20/19 22:20 Respiratory Rate 17 02/23/19 11:11 Respiratory Effort Non-Labored 02/23/19 12:34 Respiratory Depth Normal 02/23/19 12:34 Respiratory Pattern Normal 02/23/19 12:34 Blood Pressure 120/76 02/23/19 11:11 Blood Pressure Mean 77 02/20/19 22:15 Blood Pressure Position Sitting 02/20/19 20:10 Pulse Oximetry 96 02/23/19 11:11 Oxygen Delivery Method Room Air 02/23/19 11:11 Oxygen Flow Rate 0 02/23/19 11:11 Pain Level 5 02/23/19 13:33 Comment 02/22/19 07:15 Intake & Output 02/22/19 02/23/1902/23/19 23:59 11:59 23:59 Intake Total 540 / 2982.917 340 / 340 Output Total 2150 / 2950 1950 / 1950 Balance -1610 / 32.917 -1610 / -1610 Weight 55.6 kg Intake: IV 300 / 2542.917 Oral 240 / 440 320 / 320 Output: Drainage 1250 / 2050 1000 / 1000 Right Lower Abdomen 1250 / 2050 1000 / 1000 Urine 950 / 950 Emesis 900 / 900 Other: Urine Color Yellow Urine Appearance Clear Clear Clear Mucous Threads Emesis Description Undigested Food Gastric Occult Blood Positive Laboratory Results WBC 8.70 k/cumm (4.4-10.8) D 02/23/19 08:40 RBC 2.73 m/cumm (4.50-6.00) L 02/23/19 08:40 Hgb 8.0 g/dL (13.5-17.5) L 02/23/19 08:40 Hct 25.2 % (40.0-50.0) L 02/23/19 08:40 MCV 92.3 fL (80-95) 02/23/19 08:40 MCH 29.3 pg (27.0-33.0) 02/23/19 08:40 MCHC 31.7 g/dL (32.0-36.0) L 02/23/19 08:40 RDW 13.9 % (11.8-14.1) 02/23/19 08:40 Plt Count 384 x1000/uL (130-400) 02/23/19 08:40 MPV 8.9 fL (8.0-11.0) 02/23/19 08:40 Immature Gran % 0.2 02/23/19 08:40 Neutrophils % 79.6 02/23/19 08:40 Band Neutrophils % 0.0 % 02/20/19 20:28 Lymphocytes % 6.8 02/23/19 08:40 Atypical Lymphs % 0 02/20/19 20:28 Monocytes % 9.7 02/23/19 08:40 Eosinophils % 3.6 02/23/19 08:40 Basophils % 0.1 02/23/19 08:40 Absolute Neutrophils 6.93 k/cumm (1.2-6.7) H 02/23/19 08:40 Absolute Lymphocytes 0.59 k/cumm (1.2-3.4) L 02/23/19 08:40 Absolute Monocytes 0.84 k/cumm (0.11-0.7) H 02/23/19 08:40 Absolute Eosinophils 0.31 k/cumm (0.0-0.7) 02/23/19 08:40 Absolute Basophils 0.01 k/cumm (0.0-0.2) 02/23/19 08:40 Differential Comment Rbc morph reviewed 02/23/19 08:40 RBC Morphology See below 02/23/19 08:40 Polychromasia Present 02/20/19 20:28 Hypochromasia 2+ 02/23/19 08:40 Poikilocytosis 2+ 02/23/19 08:40 Basophilic Stippling Present 02/20/19 20:28 Sodium 135 mmol/L (136-145) L 02/23/19 08:40 Potassium 3.6 mmol/L (3.5-5.1) 02/23/19 08:40 Chloride 104 mmol/L (98-107) 02/23/19 08:40 Carbon Dioxide 22.6 mmol/L (21.0-32.0) 02/23/19 08:40 Anion Gap 8.4 mmol/L (3-11) 02/23/19 08:40 BUN 33 mg/dL (7-18) H 02/23/19 08:40 Creatinine 3.02 mg/dL (0.70-1.30) H 02/23/19 08:40 Estimated GFR/1.73 m2 21.08 (mL/min/1.73m2) 02/23/19 08:40 Glucose 125 mg/dL (70-100) H 02/23/19 08:40 Lactate 1.1 mmol/L (0.6-1.4) 02/20/19 20:28 Calcium 8.2 mg/dL (8.5-10.1) L 02/23/19 08:40 Magnesium 2.4 mg/dL (1.8-2.4) 02/23/19 08:40 Total Bilirubin 0.4 mg/dL (0.2-1.0) 02/21/19 07:03 AST 6 U/L (15-37) L 02/21/19 07:03 ALT < 6 U/L (16-63) L 02/21/19 07:03 Alkaline Phosphatase 171 U/L (46-116) H 02/21/19 07:03 Troponin I < 0.05 ng/mL (0.00-0.06) 02/20/19 20:28 Total Protein 6.1 g/dL (6.4-8.2) L 02/21/19 07:03 Albumin 2.1 g/dL (3.4-5.0) L 02/21/19 07:03 Lipase 52 U/L (73-393) L 02/20/19 20:28 Urine Color Yellow (Yellow) 02/20/19 20:42 Urine Clarity Cloudy (Clear) 02/20/19 20:42 Urine pH 8.5 (5-8) H 02/20/19 20:42 Ur Specific [place] 1.015 (1.005-1.025) 02/20/19 20:42 Urine Protein 100 mg/dL (Negative) H 02/20/19 20:42 Urine Ketones Negative mg/dL (Negative) 02/20/19 20:42 Urine Blood Large (Negative) H 02/20/19 20:42 Urine Nitrite Negative (Negative) 02/20/19 20:42 Urine Bilirubin Negative (Negative) 02/20/19 20:42 Urine Urobilinogen 0.2 EU/dL (Up TO 0.2) 02/20/19 20:42 Ur Leukocyte Esterase Large (Negative) H 02/20/19 20:42 Urine RBC >50 (0-2) H 02/20/19 20:42 Urine WBC >50 HPF (0-5) 02/20/19 20:42 Ur Epithelial Cells Few HPF (Negative) 02/20/19 20:42 Urine Crystals Rare triple phos HPF (Negative) 02/20/19 20:42 Urine Bacteria Many HPF (Negative) 02/20/19 20:42 Urine Casts Negative LPF (Negative) 02/20/19 20:42 Urine Mucus Moderate (Negative) 02/20/19 20:42 Urine Other Negative (Negative) 02/20/19 20:42 Ur Culture Indicated? Yes 02/20/19 20:42 Urine Glucose Negative mg/dL (Negative) 02/20/19 20:42
--- NOTE | 2019-02-23 14:15 | PDOC.CMPRO ---
- If Service Date Differs Date of service: 02/23/19 Time of Service: 14:15 Care Management Progress Note S/O: Cornelio remains in acute status anticipate no changes today he is being treated for sepsis per the provider. Provider is contacting Urology r/t nephrostomy tube and the possibility of changing it out if needed. His WBC has improved, his BUN and Cr continue to be elevated however compared to his baseline his labs have improved. Cornelio's blood cultures from admission are negative.Cornelio remains on IV abx. A:Cornelio is a 63 year old male with a history of metastatic bladder cancer, admitted with fever and UTI P:Cornelio will be discharged home with resumption of Palliative care when he is discharged. Cornelio will transport himself home when he is medically ready.
[2019-02-23 16:33] VITALS: BP 127/92; PULSE 90; RESP 20; TEMP 37.3; O2SAT 99
[2019-02-23 19:44] VITALS: BP 131/80; PULSE 92; RESP 18; TEMP 37.2; O2SAT 96
[2019-02-23] MEDS: Atorvastatin 40 MG TAB 80 MG PO (19:53)
[2019-02-23] MEDS: Melatonin 3 MG TAB PO (21:06)
[2019-02-24] VITALS (8 sets, daily range): BP systolic 116–154; BP diastolic 72–92; PULSE 68–107; RESP 14–20; TEMP 36.7–39; O2SAT 93–96
[2019-02-24] MEDS: oxyCODONE 15 MG TAB PO ×3 (06:59→22:32)
--- NOTE | 2019-02-24 07:03 | W.UROLOGYCON ---
Date of service: 02/24/19 Time of Service: 07:03 Assessment and Plan Assessment and plan (1) Ureteral anastomotic obstruction: Status: Acute Assessment and plan: If the initial stent change was easy and his stent was being changed routinely, and if we are able to order this specific type of catheter, I might be able to change his stent locally. Since that his current stent has been in place since June, it has a very high risk of occlusion. If I am not able to pass a wire through his current stent, we would have no way of retrieving access here at this facility. Is inconvenient as it may be for the patient, I think the wisest move is to have his stent change every 3 months down in interventional radiology. I printed off the most recent interventional radiology procedure note involving his stent change and will ask the staff to scan it into our EMR. History of Present Illness History of Present Illness Chief Complaint: Ureteral enteric stricture Narrative: This is a 63-year-old gentleman who has a history of metastatic bladder cancer. When he initially presented a year or 2 ago, he had severe anemia and gross hematuria. Due to his medical issues, he was not felt to be a good surgical candidate locally. He underwent his surgical procedures done at [facility]. Initially, he refused radical surgery. He ultimately agreed to cystectomy with ileal conduit in February 2018. There was an intraoperative obturator nerve injury that was recognized and repaired. He also developed a ureteral enteric stricture. He initially had a nephrostomy tube placed. He then had a antegrade stent placed. All of these procedures were done by interventional radiology. The initial stent was placed in March 2018. He had his first stent change in June 2018. He was due for a change of stent every 3 months, but from what I can tell, his September appointment was canceled and was never rescheduled. He is now hospitalized with a symptomatic urinary tract infection. He has improved with antibiotics. I have been asked whether or not his current stent can be changed locally or whether he might need to go have the stent changed in interventional radiology. 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) Cigarette smoker one half pack a day or less (Chronic) CKD (chronic kidney disease) (Acute) COPD (chronic obstructive pulmonary disease) (Chronic) Emphysema, unspecified (Acute) Family dysfunction (Acute) Left lower lobe pulmonary nodule (Chronic) Lung mass (Chronic) Malignant neoplasm metastatic from bladder (Chronic) Osteoarthritis (Chronic) Palliative care patient (Chronic) Symptomatic anemia (Acute) Unintentional weight loss (Acute) Uremia, acute (Acute) Surgical History H/O prostatectomy (Chronic) H/O total cystectomy (Chronic) History of ankle surgery (Acute) left ankle repair, 3 pins History of biopsy of bladder (Acute) Previous back surgery (Acute) discetomy to four discs (lumbar spine) Family History Mother , of breast cancer aged 77 No problems noted. Father , of kidney disease, CHF aged 77 s/p nephrectomy for uncertain reason, ? cancer No problems noted. Brother , of bladder and ? colon cancer aged 45 No problems noted. Sister Diabetes Son Age: 7 No problems noted. Son Age: 38 No problems noted. Son Age: 42 No problems noted. Son Age: 40 No problems noted. Social History Smoking/Tobacco Use Status: Current every day Tobacco Type: cigarettes Years smoked: 50 Tobacco: How many years used: 50 Quit status: considering quitting Counseling given: support program and counseling >3 minutes Alcohol Intake: former Drug use: Occasionally Substance use type: marijuana Counseling given: No Adopted: No Caregiver/Support person: Yes Foster care: No Household members: spouse and other Details: living with - 8 years Housing: house Number of Children: 5 number of grandchildren: 11 Communication Needs: Hard of Hearing and Corrective Lenses Education Level: high school Do you need help understanding health information?: Always 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, [employer], 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, can't Pets and animals: Yes Sexually active: No What is your relationship status?: How often do you talk on the phone with friends or family?: three or more times per week How often do you get together with friends or relatives?: three or more times per week Panel score (0-1 are the most socially isolated patients): 1 What type of physical activity do you participate in: none Duration: 15-30 minutes/day Special josé antonio needs: No Agree to transfusion: Yes Seatbelt use: always Drive intox or ride w/intox transfer 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 Cornelio worried about who will care for him. Thinks son Vivek will. Cornelio does all the shopping and cooking for the household. often mean to Cornelio's young son; son still loves her. Exam Narrative Exam Narrative: He looks chronically ill, but does not appear septic or toxic. His vital signs are documented elsewhere. His stoma is pink and viable. There is a large caliber stent protruding from the stoma. There is no curl on the end of the stent. He is awake and alert. In looking at his stent last evening, I realized it is not a type of stent that we keep in stock here. Spent time reviewing his [facility] records. Based on the documentation, the stent is a 10.2 Croatian by 45 cm single pigtail stent. The procedure note indicates difficulty passing a guidewire with the impression that the existing right retrograde ureteral stent was partially occluded. Results Last Vital Signs Temp 36.8 C 02/24/19 04:21 Pulse 82 02/24/19 04:21 Resp 16 02/24/19 04:21 BP 143/88 H 02/24/19 04:21 Pulse Ox 96 02/24/19 04:21 Labs Result diagrams: 02/23/19 08:40 02/23/19 08:40 Labs: Laboratory Results - last 24 hr 10/10/19 10/10/19 08:40 08:40 WBC 8.70 D RBC 2.73 L Hgb 8.0 L Hct 25.2 L MCV 92.3 MCH 29.3 MCHC 31.7 L RDW 13.9 Plt Count 384 MPV 8.9 Immature Gran % 0.2 Neutrophils % 79.6 Lymphocytes % 6.8 Monocytes % 9.7 Eosinophils % 3.6 Basophils % 0.1 Absolute Neutrophils 6.93 H Absolute Lymphocytes 0.59 L Absolute Monocytes 0.84 H Absolute Eosinophils 0.31 Absolute Basophils 0.01 Differential Comment Rbc morph reviewed RBC Morphology See below Hypochromasia 2+ Poikilocytosis 2+ Sodium 135 L Potassium 3.6 Chloride 104 Carbon Dioxide 22.6 Anion Gap 8.4 BUN 33 H Creatinine 3.02 H Estimated GFR/1.73 m2 21.08 Glucose 125 H Calcium 8.2 L Magnesium 2.4
[2019-02-24 07:16] LABS: Abs Immature Grans 0.03 k/cumm (0.0-0.09); Absolute Basophil Count 0.02 k/cumm (0.0-0.2); Absolute Eosinophil Count 0.28 k/cumm (0.0-0.7); Absolute Lymphocyte Count 0.62 k/cumm (1.2-3.4); Absolute Monocyte Count 0.85 k/cumm (0.11-0.7); Absolute Neutrophil Count 4.97 k/cumm (1.2-6.7); Basophils % 0.3; Eosinophils % 4.1; HCT 27.3 % (40.0-50.0); HGB 8.3 g/dL (13.5-17.5); Immature Grans % 0.4; Lymphocytes % 9.2; Mean Corp. HGB Concentration 30.4 g/dL (32.0-36.0); Mean Corpuscular Hemoglobin 28.4 pg (27.0-33.0); Mean Corpuscular Volume 93.5 fL (80-95); Mean Platelet Volume 9.2 fL (8.0-11.0); Monocytes % 12.6; Neutrophils % 73.4; Platelet Count 435 x1000/uL (130-400); RBC 2.92 m/cumm (4.50-6.00); White Blood Cell Count 6.77 k/cumm (4.4-10.8)
[2019-02-24 07:26] LABS: Anion Gap 8.6 mmol/L (3-11); BUN 30 mg/dL (7-18); CO2 24.4 mmol/L (21.0-32.0); CREATININE 3.36 mg/dL (0.70-1.30); Calcium 8.5 mg/dL (8.5-10.1); Chloride 105 mmol/L (98-107); Estimated GFR 18.64 (mL/min/1.73m2); Glucose 107 mg/dL (70-100); Magnesium 2.2 mg/dL (1.8-2.4); Potassium 4.2 mmol/L (3.5-5.1); Sodium 138 mmol/L (136-145)
[2019-02-24] MEDS: Polyethylene Glycol 3350 17 GM PACKET PO (07:43)
--- NOTE | 2019-02-24 11:29 | W.PM.PROGNOT ---
Date of Service Date of service: 02/24/19 Time of Service: 11:29 Assessment and Plan Assessment and plan (1) UTI (urinary tract infection) due to Enterococcus: Status: Acute Assessment and plan: Appreciate Dr Sharma's assistance in arranging follow up with [facility] for ureteral stent change. The patient would have to remain on antibiotics until that is done. ?allergic to levofloxacin (unclear) - trial PO cefuroxime. (2) Drug-induced pruritus: Status: Acute Assessment and plan: Unfortunately, I do not know the etiology. This could be related to oxycodone that the patient is taking in bigger doses, but also any of the new medications we introduced, such as levofloxacin, protonix, carafate, oral magnesium. We will d/c these possible culprits. patient refuses oral benadryl, but we can try a medicated lotion. The patient asks to trial the new antibiotic (cefuroxime) PO for 2 doses to know whether or not he is allergic, which I believe is reasonable. (3) Hematemesis: Status: Acute Assessment and plan: None in almost 48 hours. Patient is skeptical about any new medications such as protonix or carafate that could have caused an itch. Both d/c'ed. Patient aware. He also refuses a surgical consult and an EGD at this time - unless he bleeds again. He is tolerating a regular consistency diet. Monitor. H/H is stable. Avoid chemical dvt ppx. (4) RUQ pain: Status: Acute Assessment and plan: ? due to liver mets or MSK. Improved. Patient informed of findings on Ultrasound and that he will have to have a CT of his abdomen as outpatient. (5) Ureteral anastomotic obstruction: Status: Acute Assessment and plan: S/p ureteral stent. As above (6) Malignant neoplasm metastatic from bladder: Status: Chronic Assessment and plan: As above (7) COPD (chronic obstructive pulmonary disease): Status: Chronic Assessment and plan: Not in acute exacerbation. Follow up as outpatient. Mild bronchitis/URI is possible, but clinically not very impressive and improving, per patient. (8) Pulmonary nodule seen on imaging study: Status: Chronic Assessment and plan: Will need outpatient follow up. Mets vs new primary. Patient states he just finished radiation to the lungs. (9) Pulmonary hypertension: Status: Chronic Assessment and plan: Follow up as outpatient (10) CKD (chronic kidney disease): Status: Acute Assessment and plan: Cr slightly worse today. Patient needs to be encouarged to drink more liquids. Recheck in am. (11) DVT prophylaxis: Status: Acute Assessment and plan: Chemical dvt ppx on hold due to gastroccult positive emesis (12) Discharge planning issues: Status: Acute Assessment and plan: Full code Palliative care saw patient D/c home tomorrow assuming itching is better and that he does not defervesce. Subjective Subjective Interval history since last seen: Mr Rosas complains of itching all over starting yesterday afternoon. He admits that sometimes oxycodone makes him itch at home too, and that he is taking more oxycodone now than he used to, but he thinks it is one of the medications he is taking here that could be doing that. He refuses protonix, carafate, magnesium. He is interested in getting off the new antibiotics (levofloxacin) and going back to the first antibiotics (ceftriaxone). We discussed how we can put him on an antibiotic in the same group as ceftriaxone that can be given orally - he would like to try that here for at least 2 doses because he usually develops allergies after the 2nd dose. He is willing to try a medicated lotion for his itch, but not a pill. Otherwise, states his abdominal pain is better, his cough and chest congestion are better. Denies nausea. Exam Narrative Exam Narrative: General: very pleasant middle-aged male, A&Ox3, scratching. No rash seen anywhere on the body. HEENT: EOMI, MMM Heart: RRR, no m/r/g Lungs: Diminished breath sounds B, better than yesterday GI: abdomen is soft, does not appear to have pain; urostomy right mid-abdomen with output; black-colored ureteral stent visible Extremities: no e/c/c BLE's Objective Objective Clinical Data: Abnormal lab results 02/24/19 02/24/19 Range/Units 06:52 06:52 RBC 2.92 L (4.50-6.00) m/cumm Hgb 8.3 L (13.5-17.5) g/dL Hct 27.3 L (40.0-50.0) % MCHC 30.4 L (32.0-36.0) g/dL Plt Count 435 H (130-400) x1000/uL Absolute Lymphocytes 0.62 L (1.2-3.4) k/cumm Absolute Monocytes 0.85 H (0.11-0.7) k/cumm BUN 30 H (7-18) mg/dL Creatinine 3.36 H (0.70-1.30) mg/dL Glucose 107 H (70-100) mg/dL Vital Signs Temperature 37.2 C 02/24/19 08:51 Temperature Source Tympanic 02/24/19 08:51 Pulse 85 02/24/19 08:51 Pulse Rhythm Regular 02/24/19 08:32 Pulse 100 H 02/20/19 22:20 Respiratory Rate 20 02/24/19 08:51 Respiratory Effort Non-Labored 02/24/19 08:32 Respiratory Depth Normal 02/24/19 08:32 Respiratory Pattern Normal 02/24/19 08:32 Blood Pressure 128/92 H 02/24/19 08:51 Blood Pressure Mean 77 02/20/19 22:15 Blood Pressure Position Sitting 02/20/19 20:10 Pulse Oximetry 94 L 02/24/19 08:51 Oxygen Delivery Method Room Air 02/24/19 08:51 Oxygen Flow Rate 0 02/24/19 08:51 Pain Level 3 02/24/19 08:51 Comment 02/22/19 07:15 Intake & Output 02/23/19 02/23/19 02/24/19 11:59 23:59 11:59 Intake Total 340 / 1190 850 / 1190 480 / 480 Output Total 1950 / 3400 1450 / 3400 1700 / 1700 Balance -1610 / -2210 -600 / -2210 -1220 / -1220 Weight 55.6 kg 55.7 kg Intake: IV Oral 320 / 1160 840 / 1160 480 / 480 Output: Drainage 1000 / 2450 1450 / 2450 1700 / 1700 Right Lower Abdomen 1000 / 2450 1450 / 2450 1700 / 1700 Urine 950 / 950 Other: Urine Color Yellow Urine Appearance Clear Clear Clear Laboratory Results WBC 6.77 k/cumm (4.4-10.8) 02/24/19 06:52 RBC 2.92 m/cumm (4.50-6.00) L 02/24/19 06:52 Hgb 8.3 g/dL (13.5-17.5) L 02/24/19 06:52 Hct 27.3 % (40.0-50.0) L 02/24/19 06:52 MCV 93.5 fL (80-95) 02/24/19 06:52 MCH 28.4 pg (27.0-33.0) 02/24/19 06:52 MCHC 30.4 g/dL (32.0-36.0) L 02/24/19 06:52 RDW 14.0 % (11.8-14.1) 02/24/19 06:52 Plt Count 435 x1000/uL (130-400) H 02/24/19 06:52 MPV 9.2 fL (8.0-11.0) 02/24/19 06:52 Immature Gran % 0.4 02/24/19 06:52 Neutrophils % 73.4 02/24/19 06:52 Band Neutrophils % 0.0 % 02/20/19 20:28 Lymphocytes % 9.2 02/24/19 06:52 Atypical Lymphs % 0 02/20/19 20:28 Monocytes % 12.6 02/24/19 06:52 Eosinophils % 4.1 02/24/19 06:52 Basophils % 0.3 02/24/19 06:52 Absolute Neutrophils 4.97 k/cumm (1.2-6.7) 02/24/19 06:52 Absolute Lymphocytes 0.62 k/cumm (1.2-3.4) L 02/24/19 06:52 Absolute Monocytes 0.85 k/cumm (0.11-0.7) H 02/24/19 06:52 Absolute Eosinophils 0.28 k/cumm (0.0-0.7) 02/24/19 06:52 Absolute Basophils 0.02 k/cumm (0.0-0.2) 02/24/19 06:52 Differential Comment Rbc morph reviewed 02/23/19 08:40 RBC Morphology See below 02/23/19 08:40 Polychromasia Present 02/20/19 20:28 Hypochromasia 2+ 02/23/19 08:40 Poikilocytosis 2+ 02/23/19 08:40 Basophilic Stippling Present 02/20/19 20:28 Sodium 138 mmol/L (136-145) 02/24/19 06:52 Potassium 4.2 mmol/L (3.5-5.1) 02/24/19 06:52 Chloride 105 mmol/L (98-107) 02/24/19 06:52 Carbon Dioxide 24.4 mmol/L (21.0-32.0) 02/24/19 06:52 Anion Gap 8.6 mmol/L (3-11) 02/24/19 06:52 BUN 30 mg/dL (7-18) H 02/24/19 06:52 Creatinine 3.36 mg/dL (0.70-1.30) H 02/24/19 06:52 Estimated GFR/1.73 m2 18.64 (mL/min/1.73m2) 02/24/19 06:52 Glucose 107 mg/dL (70-100) H 02/24/19 06:52 Lactate 1.1 mmol/L (0.6-1.4) 02/20/19 20:28 Calcium 8.5 mg/dL (8.5-10.1) 02/24/19 06:52 Magnesium 2.2 mg/dL (1.8-2.4) 02/24/19 06:52 Total Bilirubin 0.4 mg/dL (0.2-1.0) 02/21/19 07:03 AST 6 U/L (15-37) L 02/21/19 07:03 ALT < 6 U/L (16-63) L 02/21/19 07:03 Alkaline Phosphatase 171 U/L (46-116) H 02/21/19 07:03 Troponin I < 0.05 ng/mL (0.00-0.06) 02/20/19 20:28 Total Protein 6.1 g/dL (6.4-8.2) L 02/21/19 07:03 Albumin 2.1 g/dL (3.4-5.0) L 02/21/19 07:03 Lipase 52 U/L (73-393) L 02/20/19 20:28 Urine Color Yellow (Yellow) 02/20/19 20:42 Urine Clarity Cloudy (Clear) 02/20/19 20:42 Urine pH 8.5 (5-8) H 02/20/19 20:42 Ur Specific Harrells 1.015 (1.005-1.025) 02/20/19 20:42 Urine Protein 100 mg/dL (Negative) H 02/20/19 20:42 Urine Ketones Negative mg/dL (Negative) 02/20/19 20:42 Urine Blood Large (Negative) H 02/20/19 20:42 Urine Nitrite Negative (Negative) 02/20/19 20:42 Urine Bilirubin Negative (Negative) 02/20/19 20:42 Urine Urobilinogen 0.2 EU/dL (Up TO 0.2) 02/20/19 20:42 Ur Leukocyte Esterase Large (Negative) H 02/20/19 20:42 Urine RBC >50 (0-2) H 02/20/19 20:42 Urine WBC >50 HPF (0-5) 02/20/19 20:42 Ur Epithelial Cells Few HPF (Negative) 02/20/19 20:42 Urine Crystals Rare triple phos HPF (Negative) 02/20/19 20:42 Urine Bacteria Many HPF (Negative) 02/20/19 20:42 Urine Casts Negative LPF (Negative) 02/20/19 20:42 Urine Mucus Moderate (Negative) 02/20/19 20:42 Urine Other Negative (Negative) 02/20/19 20:42 Ur Culture Indicated? Yes 02/20/19 20:42 Urine Glucose Negative mg/dL (Negative) 02/20/19 20:42
[2019-02-24] MEDS: Cefuroxime 500 MG TAB PO ×2 (11:51→22:32)
[2019-02-24] MEDS: diphenhydrAMINE /ZINC ACET CR 30 GM TUBE TP (12:40)
[2019-02-24] MEDS: Normal Saline Flush 10 ML SYR IVP (13:54)
--- NOTE | 2019-02-24 14:12 | PDOC.CMPRO ---
- If Service Date Differs Date of service: 02/24/19 Time of Service: 14:13 Care Management Progress Note S/O: Cornelio remains in acute status today. Provider is contacting Urology at [facility] r/t nephrostomy tube and the possibility of changing it out if needed. A:Cornelio is a 63 yo man admitted on 02/20/19 for metastatic bladder cancer, fever, UTI, and enteritis. P:Cornelio will be discharged home when medically cleared by provider. Resumption of Palliative care when he is discharged. Cornelio will transport himself home upon discharge.
[2019-02-24] MEDS: Melatonin 3 MG TAB PO (22:32)
[2019-02-24] MEDS: Atorvastatin 40 MG TAB 80 MG PO (22:32)
[2019-02-24] MEDS: Acetaminophen 325 MG TAB 650 MG PO (22:43)
[2019-02-25] VITALS (12 sets, daily range): BP systolic 107–124; BP diastolic 69–80; PULSE 79–107; RESP 15–20; TEMP 36.8–38.9; O2SAT 93–96
[2019-02-25 02:19] LABS: HCT 27.2 % (40.0-50.0); HGB 8.5 g/dL (13.5-17.5); Mean Corp. HGB Concentration 31.3 g/dL (32.0-36.0); Mean Corpuscular Hemoglobin 28.9 pg (27.0-33.0); Mean Corpuscular Volume 92.5 fL (80-95); Platelet Count 467 x1000/uL (130-400); RBC 2.94 m/cumm (4.50-6.00); White Blood Cell Count 10.74 k/cumm (4.4-10.8)
[2019-02-25 02:20] LABS: Lactate 0.8 mmol/L (0.6-1.4)
[2019-02-25 02:31] LABS: Anion Gap 10.9 mmol/L (3-11); BUN 27 mg/dL (7-18); CO2 23.1 mmol/L (21.0-32.0); Calcium 8.6 mg/dL (8.5-10.1); Chloride 103 mmol/L (98-107); Estimated GFR 17.32 (mL/min/1.73m2); Glucose 121 mg/dL (70-100); Sodium 137 mmol/L (136-145)
[2019-02-25 02:34] LABS: CREATININE 3.58 mg/dL (0.70-1.30)
[2019-02-25 02:40] LABS: Absolute Eosinophil Count 0.11 k/cumm (0.0-0.7); Absolute Lymphocyte Count 0.54 k/cumm (1.2-3.4); Absolute Monocyte Count 0.64 k/cumm (0.11-0.7); Absolute Neutrophil Count 9.45 k/cumm (1.2-6.7); Diff Comment Manual Differential; Hypochromasia 1+; Ovalocytes 2+; Polychromasia Present
[2019-02-25 02:41] LABS: Poikilocytes 1+
[2019-02-25 02:51] LABS: Procalcitonin 1.2 ng/mL
[2019-02-25] MEDS: VANCOMYCIN 1,000 MG in Normal Saline 250 ML 250 MG IV (04:18)
[2019-02-25] MEDS: Normal Saline Flush 10 ML SYR IVP (05:23)
[2019-02-25] MEDS: Metoclopramide 10 MG/2 ML VIAL IVP (05:23)
[2019-02-25] MEDS: oxyCODONE 15 MG TAB PO ×3 (06:51→22:30)
[2019-02-25 08:14] LABS: Bilirubin Negative (Negative); Blood Small (Negative); Clarity Clear (Clear); Glucose Negative (Negative); Ketones Negative (Negative); Leukocyte Esterase Moderate (Negative); Nitrite Negative (Negative); Urobilinogen 0.2 EU/dL (Up TO 0.2)
[2019-02-25 08:27] LABS: Bacteria Moderate HPF (Negative); Casts 0-2 Coarse Granular LPF (Negative); Crystals Negative HPF (Negative); Epithelial Cells Few HPF (Negative); Mucus Trace (Negative); WBC 20-50 HPF (0-5)
[2019-02-25 08:28] LABS: C & S Indicated? C&S Done As Ordered
--- NOTE | 2019-02-25 09:32 | DI.RAD_ITS ---
EXAM: XR CHEST 2V PA LATERAL INDICATION: Fever. COMPARISON: XR CHEST 2V PA LATERAL from 10/02/2018 TECHNIQUE: 2D digital imaging was performed. FINDINGS: The heart is not enlarged. There are changes of COPD and pulmonary scarring. No acute consolidation seen. No pleural effusion seen. IMPRESSION: No evidence of acute change. Pigtail catheter noted overlying the upper abdomen.
--- NOTE | 2019-02-25 09:36 | DI.VRAD_ITS ---
PROCEDURE INFORMATION: Exam: XR Chest, 2 Views Exam date and time: 02/25/2019 9:30 AM Clinical history: 63 years old, male; Fever; Patient HX: Metastatic bladder CA TECHNIQUE: Imaging protocol: XR of the chest Views: 2 views. COMPARISON: CR XR CHEST 2V PA LATERAL 10/02/2018 3:36 PM FINDINGS: Lungs: No focal peripheral lung consolidation, air bronchogram formation, or silhouette sign. Pleural space: No pleural effusion or pneumothorax. Heart/Mediastinum: The heart is not enlarged. The mediastinal contours are normal. Bones/joints: Multilevel bridging osteophytes in the thoracic spine. IMPRESSION: No pneumonia. Dictated and Authenticated by: Austyn Pleitez MD. Ordering:JEVON Cleaning MD
[2019-02-25] MEDS: Normal Saline 500 ML 75 ML IV (13:25)
[2019-02-25] MEDS: Normal Saline 1,000 ML 75 ML IV (15:26)
--- NOTE | 2019-02-25 15:35 | PGE_ITS ---
Date of Service Date of service: 02/25/19 Time of Service: 15:35 Assessment and Plan Assessment and plan (1) Fever: Status: Acute Assessment and plan: Evidence of continued fevers, with negative prior blood cultures, negative imaging with a CT of the chest, abdomen, and pelvis, and negative repeat imaging with CXR this morning. Urinalysis remains positive, but obtained from a sample through the patient's ureteral ileal conduit. Prior culture results reviewed, and patient has a history of infections with E. Faecalis, E.coli, Citrobacter freundii, and Proteus species. -Mr. Rosas had continued to be febrile initially through ceftriaxone, with infection representing a potential UTI, and defervesced with Levaquin use. Unfortunately, due to development of pruritus the patient refused further fluoroquinolone therapy, and was initiated on oral cephalosporin which induced recurrence of fevers overnight. He has since been appropriately changed to broad-spectrum antibiotics with vancomycin and meropenem, renally dosed, with repeat blood cultures and urinalysis obtained. Repeat imaging with CXR as stated above was negative. Monitor symptoms closely. If fevers continue, may need to discuss with urology regarding stent change to be performed as an inpatient. (2) Hematemesis: Status: Acute Assessment and plan: Evidence of heme positive emesis, not grossly bloody or reported to be coffee-ground like. Patient apparently refused PPI therapy and surgical consult regarding EGD previously, but is more amenable this morning. As he has remained without any significant pruritus he is willing to tolerate the initiation of a new medication this evening. Will start PPI therapy. (3) RUQ pain: Status: Acute Assessment and plan: Likely secondary to metastatic process, with imaging showing 'innumerable' mets to the liver. Continue as needed oxycodone. (4) Malignant neoplasm metastatic from bladder: Status: Chronic Assessment and plan: [place] [facility] [place] (5) COPD (chronic obstructive pulmonary disease): Status: Chronic Assessment and plan: Appears to be quiescent. Monitor. (6) CKD (chronic kidney disease): Status: Acute Assessment and plan: CKD Stage 5, not on Hemodialysis. Continue to monitor creatinine, renally dose medications when necessary, and avoid nephrotoxins. (7) DVT prophylaxis: Status: Acute Assessment and plan: Holding on chemical DVT Prophylaxis secondary to Heme + Emesis. (8) Advance directive on file: Status: Acute Assessment and plan: Full Code. Subjective Subjective Interval history since last seen: 62 year old man with PMHx significant for metastatic bladder cancer on Chemotherapy, s/p Ureteroileal Conduit with a ureteral stent in place, admitted from [facility] Emergency Department on 02/20 with a diagnosis of UTI. Mr. Rosas has a past Medical History significant for metastatic Bladder Ca, with mets to the lung and liver, s/p prior nephrostomy tubes, right sided ureteral stent, and ureteroileal conduit on chemo and XRT. His other medical history includes CKD stage 5 (not on dialysis), previous hematuria with subsequent anemia, prior evidence of Proteus and Pseudomonas Urinary tract infections, COPD, and PHTN. He also had noted history of Chronic systolic CHF wih EF 35%, but on repeat ECHO in September of this year was noted to have a normalized LVEF. He presented to the ED with a progressive 1 week history of RUQ abdominal pain, fevers, and nausea with dry heaves. Initial work-up with CT imaging of the chest, abdomen, and pelvis was negative for an acute infection, but showed evidence ofa LLL Spiculated mass and innumerable hepatic lesions all suspicious for metastatic disease. Labwork was noteworthy for a leukocytosis with a WBC of 17, chronic appearing anemia, chronically elevated Creatinine, and a mild anion gap with low bicarb. Urinalysis showed Large LE and Pyuria with WBC >50, from sample obtained via patient's ureteroileal conduit. Mr. Rosas continued to be febrile through initial antibiotic therapy with Ceftriaxone, was actually afebrile with initiation of Levaquin which he refused after onset of prurits one day into treatment, and again became febrile with initiation of oral Cephalosporine therapy via prior caregiver. Overnight his fevers worsened and patient developed acute nausea with vomiting, necessitating change in antibiotic therapy to IV Meropenem and Vancomycin. Urine Culture not helpful with growth of Mixed Gram Positive and negative aron. Repeat cultures were obtained, and a CXR showed no acute pathology. He reports feeling ill. No other events reported. Remains afebrile. Exam Narrative Exam Narrative: General: Patient appears comfortable, AAOX3, does not appear to be acutely ill despite fevers Neck: Supple CV: Regular, nontachycardic, S1S2, No rubs, murmurs, or gallops. Pulmonary: Clear to auscultation bilaterally but mildly diminished diffusely, no crackles, wheezing, or rhonchi Abdomen: + Bowel Sounds, soft, nontender, nondistended. Urostomy bag from ureteral ileal conduit visible. Vascular: No lower extremity edema Psych: Normal mood and affect. Objective Objective Clinical Data: Abnormal lab results 02/25/19 02/25/19 02/25/19 Range/Units 02:11 02:11 08:00 RBC 2.94 L (4.50-6.00) m/cumm Hgb 8.5 L (13.5-17.5) g/dL Hct 27.2 L (40.0-50.0) % MCHC 31.3 L (32.0-36.0) g/dL Plt Count 467 H (130-400) x1000/uL Absolute Neutrophils 9.45 H (1.2-6.7) k/cumm Absolute Lymphocytes 0.54 L (1.2-3.4) k/cumm BUN 27 H (7-18) mg/dL Creatinine 3.58 H* (0.70-1.30) mg/dL Glucose 121 H (70-100) mg/dL Urine Protein 30 H (Negative) mg/dL Urine Blood Small H (Negative) Ur Leukocyte Esterase Moderate H (Negative) Urine RBC 3-5 H (0-2) Vital Signs Temperature 37.7 C H 02/25/19 15:24 Temperature Source Tympanic 02/25/19 15:24 Pulse 89 02/25/19 15:24 Pulse Rhythm Regular 02/25/19 08:00 Pulse 100 H 02/20/19 22:20 Respiratory Rate 20 02/25/19 15:24 Respiratory Effort Non-Labored 02/25/19 15:27 Respiratory Depth Normal 02/25/19 15:27 Respiratory Pattern Normal 02/25/19 15:27 Blood Pressure 110/72 02/25/19 15:24 Blood Pressure Mean 77 02/20/19 22:15 Blood Pressure Position Sitting 02/20/19 20:10 Pulse Oximetry 96 02/25/19 15:24 Oxygen Delivery Method Room Air 02/25/19 15:24 Oxygen Flow Rate 0 02/25/19 15:24 Pain Level 0 02/25/19 13:44 Comment 02/25/19 12:24 Intake & Output 02/24/19 02/25/19 02/25/19 23:59 11:59 23:59 Intake Total 490 / 970 1040 / 1330 290 / 1330 Output Total 500 / 2200 1600 / 2000 400 / 2000 Balance -10 / -1230 -560 / -670 -110 / -670 Weight 52.6 kg Intake: IV 320 / 370 50 / 370 Oral 480 / 960 720 / 960 240 / 960 Output: Drainage 500 / 2200 1300 / 1700 400 / 1700 Right Lower Abdomen 500 / 2200 1300 / 1700 400 / 1700 Emesis 300 / 300 Other: Urine Appearance Clear Clear Stool Size Small Stool Characteristics Formed Brown Emesis Description Undigested Food Undigested Food Bile Laboratory Results WBC 10.74 k/cumm (4.4-10.8) D 02/25/19 02:11 RBC 2.94 m/cumm (4.50-6.00) L 02/25/19 02:11 Hgb 8.5 g/dL (13.5-17.5) L 02/25/19 02:11 Hct 27.2 % (40.0-50.0) L 02/25/19 02:11 MCV 92.5 fL (80-95) 02/25/19 02:11 MCH 28.9 pg (27.0-33.0) 02/25/19 02:11 MCHC 31.3 g/dL (32.0-36.0) L 02/25/19 02:11 RDW 14.0 % (11.8-14.1) 02/25/19 02:11 Plt Count 467 x1000/uL (130-400) H 02/25/19 02:11 MPV 9.0 fL (8.0-11.0) 02/25/19 02:11 Immature Gran % See Differential 02/25/19 02:11 Neutrophils % 88.0 02/25/19 02:11 Band Neutrophils % 0.0 % 02/20/19 20:28 Lymphocytes % 5.0 02/25/19 02:11 Atypical Lymphs % 0 02/20/19 20:28 Monocytes % 6.0 02/25/19 02:11 Eosinophils % 1.0 02/25/19 02:11 Basophils % 0.0 02/25/19 02:11 Absolute Neutrophils 9.45 k/cumm (1.2-6.7) H 02/25/19 02:11 Absolute Lymphocytes 0.54 k/cumm (1.2-3.4) L 02/25/19 02:11 Absolute Monocytes 0.64 k/cumm (0.11-0.7) 02/25/19 02:11 Absolute Eosinophils 0.11 k/cumm (0.0-0.7) 02/25/19 02:11 Absolute Basophils 0.00 k/cumm (0.0-0.2) 02/25/19 02:11 Differential Comment Manual differential 02/25/19 02:11 RBC Morphology See below 02/25/19 02:11 Polychromasia Present 02/25/19 02:11 Hypochromasia 1+ 02/25/19 02:11 Poikilocytosis 1+ 02/25/19 02:11 Basophilic Stippling Present 02/20/19 20:28 Ovalocytes 2+ 02/25/19 02:11 Sodium 137 mmol/L (136-145) 02/25/19 02:11 Potassium 4.0 mmol/L (3.5-5.1) 02/25/19 02:11 Chloride 103 mmol/L (98-107) 02/25/19 02:11 Carbon Dioxide 23.1 mmol/L (21.0-32.0) 02/25/19 02:11 Anion Gap 10.9 mmol/L (3-11) 02/25/19 02:11 BUN 27 mg/dL (7-18) H 02/25/19 02:11 Creatinine 3.58 mg/dL (0.70-1.30) H* 02/25/19 02:11 Estimated GFR/1.73 m2 17.32 (mL/min/1.73m2) 02/25/19 02:11 Glucose 121 mg/dL (70-100) H 02/25/19 02:11 Lactate 0.8 mmol/L (0.6-1.4) 02/25/19 02:11 Calcium 8.6 mg/dL (8.5-10.1) 02/25/19 02:11 Magnesium 2.2 mg/dL (1.8-2.4) 02/24/19 06:52 Total Bilirubin 0.4 mg/dL (0.2-1.0) 02/21/19 07:03 AST 6 U/L (15-37) L 02/21/19 07:03 ALT < 6 U/L (16-63) L 02/21/19 07:03 Alkaline Phosphatase 171 U/L (46-116) H 02/21/19 07:03 Troponin I < 0.05 ng/mL (0.00-0.06) 02/20/19 20:28 Total Protein 6.1 g/dL (6.4-8.2) L 02/21/19 07:03 Albumin 2.1 g/dL (3.4-5.0) L 02/21/19 07:03 Lipase 52 U/L (73-393) L 02/20/19 20:28 Procalcitonin 1.2 ng/mL 02/25/19 02:11 Urine Color Yellow (Yellow) 02/25/19 08:00 Urine Clarity Clear (Clear) 02/25/19 08:00 Urine pH 6.0 (5-8) 02/25/19 08:00 Ur Specific [place] 1.010 (1.005-1.025) 02/25/19 08:00 Urine Protein 30 mg/dL (Negative) H 02/25/19 08:00 Urine Ketones Negative mg/dL (Negative) 02/25/19 08:00 Urine Blood Small (Negative) H 02/25/19 08:00 Urine Nitrite Negative (Negative) 02/25/19 08:00 Urine Bilirubin Negative (Negative) 02/25/19 08:00 Urine Urobilinogen 0.2 EU/dL (Up TO 0.2) 02/25/19 08:00 Ur Leukocyte Esterase Moderate (Negative) H 02/25/19 08:00 Urine RBC 3-5 (0-2) H 02/25/19 08:00 Urine WBC 20-50 HPF (0-5) 02/25/19 08:00 Ur Epithelial Cells Few HPF (Negative) 02/25/19 08:00 Urine Crystals Negative HPF (Negative) 02/25/19 08:00 Urine Bacteria Moderate HPF (Negative) 02/25/19 08:00 Urine Casts 0-2 coarse granular LPF (Negative) 02/25/19 08:00 Urine Mucus Trace (Negative) 02/25/19 08:00 Urine Other (Negative) 02/25/19 08:00 Ur Culture Indicated? C&s done as ordered 02/25/19 08:00 Urine Glucose Negative mg/dL (Negative) 02/25/19 08:00
--- NOTE | 2019-02-25 18:35 | PDOC.CMPRO ---
- If Service Date Differs Date of service: 02/25/19 Time of Service: 18:35 Care Management Progress Note S/O: Cornelio remains in acute status today. He continues to have episodes of fever and had an episode of vomiting during the night. He was reported to have some wheezing so a chest xray was done but was found to be negative. CM will follow. A:Cornelio is a 63 yo man admitted on 02/20/19 for metastatic bladder cancer, fever, UTI, and enteritis. P:Cornelio will be discharged home when medically cleared by provider. Resumption of Palliative care when he is discharged. Cornelio will transport himself home upon discharge. CM will continue to support to patient, family and discharge planning needs.
[2019-02-25] MEDS: Acetaminophen 325 MG TAB 650 MG PO (19:54)
[2019-02-25] MEDS: Atorvastatin 40 MG TAB 80 MG PO (19:54)
[2019-02-25] MEDS: Pantoprazole 40 MG VIAL IVP (22:30)
[2019-02-26] VITALS (11 sets, daily range): BP systolic 124–149; BP diastolic 81–87; PULSE 85–97; RESP 16–19; TEMP 36.6–38.4; O2SAT 90–98
[2019-02-26] MEDS: Normal Saline 1,000 ML 75 ML IV ×2 (03:32→18:06)
[2019-02-26] MEDS: Acetaminophen 325 MG TAB 650 MG PO ×2 (03:33→17:17)
[2019-02-26] MEDS: oxyCODONE 15 MG TAB PO ×3 (06:13→22:27)
[2019-02-26 08:56] LABS: Abs Immature Grans 0.02 k/cumm (0.0-0.09); Absolute Basophil Count 0.02 k/cumm (0.0-0.2); Absolute Eosinophil Count 0.27 k/cumm (0.0-0.7); Absolute Lymphocyte Count 0.69 k/cumm (1.2-3.4); Absolute Monocyte Count 1.34 k/cumm (0.11-0.7); Basophils % 0.2; Eosinophils % 2.2; HCT 27.1 % (40.0-50.0); HGB 8.3 g/dL (13.5-17.5); Immature Grans % 0.2; Lymphocytes % 5.6; Mean Corp. HGB Concentration 30.6 g/dL (32.0-36.0); Mean Corpuscular Hemoglobin 28.8 pg (27.0-33.0); Mean Corpuscular Volume 94.1 fL (80-95); Mean Platelet Volume 8.9 fL (8.0-11.0); Monocytes % 10.9; Neutrophils % 80.9; Platelet Count 433 x1000/uL (130-400); RBC 2.88 m/cumm (4.50-6.00); RBC Distribution Width 14.4 % (11.8-14.1); White Blood Cell Count 12.33 k/cumm (4.4-10.8)
[2019-02-26 09:04] LABS: Absolute Neutrophil Count 9.97 k/cumm (1.2-6.7)
[2019-02-26 09:14] LABS: Anion Gap 10.2 mmol/L (3-11); BUN 29 mg/dL (7-18); CO2 23.8 mmol/L (21.0-32.0); Calcium 8.5 mg/dL (8.5-10.1); Chloride 104 mmol/L (98-107); Estimated GFR 17.78 (mL/min/1.73m2); Glucose 110 mg/dL (70-100); Magnesium 1.8 mg/dL (1.8-2.4); Potassium 3.8 mmol/L (3.5-5.1); Sodium 138 mmol/L (136-145)
[2019-02-26 09:32] LABS: Poikilocytes 2+
[2019-02-26] MEDS: VANCOMYCIN 750 MG in Normal Saline 250 ML 250 MG IV (09:39)
[2019-02-26] MEDS: Polyethylene Glycol 3350 17 GM PACKET PO (09:45)
[2019-02-26 10:10] LABS: Diff Comment Manual Differential
--- NOTE | 2019-02-26 10:30 | PDOC.CMPRO ---
- If Service Date Differs Date of service: 02/26/19 Time of Service: 10:30 Care Management Progress Note S/O: Cornelio was lying in bed when CM came to see him. He appeared tired and admitted that he was. Cornelio's antibiotics were changed yesterday but he remains febrile, although the fevers are not as high. Dr. Guzman is questioning the possibility of tumor fever and plans to discuss the case with Oncology as all of the febrile workup is negative. A:Cornelio is a 63 yo man admitted on 02/20/19 for metastatic bladder cancer, fever, UTI, and enteritis. P:Cornelio will be discharged home when medically cleared by provider. Resumption of Palliative care when he is discharged. Cornelio will transport himself home upon discharge. CM will continue to support to patient, family and discharge planning needs.
--- NOTE | 2019-02-26 15:00 | DI.CT_ITS ---
EXAM: CT ABDOMEN PELVIS WO CLINICAL HISTORY: Persistent Fever,. TECHNIQUE: COMPARISON: CT CHEST/ABD/PEL WO from 02/20/2019 FINDINGS: CT examination of the abdomen and pelvis was performed without contrast administration. Images obtai joshua through the lung bases again show spiculated left lower lobe lung mass with satellite lesions. P redominant involvement of hepatic parenchyma with innumerable presumed metastases again noted. Splee n grossly unremarkable. Pancreas grossly unremarkable. No gross bowel obstruction. No free intrape ritoneal air. Diffuse fat edema through the abdomen pelvis without significant degree of ascites. N o gross urinary tract obstruction. Right right ureteral drainage catheter again noted in position. IMPRESSION: No gross interval change from CT of 02/20/2019
--- NOTE | 2019-02-26 16:21 | W.PM.PROGNOT ---
Date of Service Date of service: 02/26/19 Time of Service: 16:21 Assessment and Plan Assessment and plan (1) Fever: Status: Acute Assessment and plan: Evidence of continued fevers, with negative blood cultures, negative imaging with a CT of the chest, abdomen, and pelvis, and negative repeat imaging with CXR this morning. Urinalysis remains positive, but obtained from a sample through the patient's ureteral ileal conduit. Current fevers are through combination Vancomycin and Meropenem. - Repeat CT without any evidence of hydro or pyelo involving the right ureter (stent in place). Patient is due for stent reevaluation via [facility] [place] - however, in the absence of any imaging findings of infection or hydro, question possible non-infectious cause as etiology for patient's continued fevers. Imaging shows evidence of significant liver mets, with Tumor Fevers high on differential. Discussed with Oncology - agrees with assessment, but recommends continued antibiotic therapy empirically. (2) Hematemesis: Status: Acute Assessment and plan: Evidence of heme positive emesis, not grossly bloody or reported to be coffee-ground like. Patient apparently refused PPI therapy and surgical consult regarding EGD previously. As he has remained without any significant pruritus he is willing to continue initiated PPI therapy. (3) RUQ pain: Status: Acute Assessment and plan: Likely secondary to metastatic process, with imaging showing 'innumerable' mets to the liver. Also with RUQ Ureteral stent. Continue as needed oxycodone. (4) Malignant neoplasm metastatic from bladder: Status: Chronic Assessment and plan: Receiving care at [facility] [place]. Patient with evidence of extensive liver mets, as well as a spiculated LLL Lung mass with satelite lesions. Concern for lung primary with metastatic disease - discussed case with [facility] [place]. Patient with prior biopsy of lung lesion this summer, with pathology positive for metastatic Urothelial Ca. (5) COPD (chronic obstructive pulmonary disease): Status: Chronic Assessment and plan: Appears to be quiescent. Monitor. (6) CKD (chronic kidney disease): Status: Acute Assessment and plan: CKD Stage 5, not on Hemodialysis. Continue to monitor creatinine, renally dose medications when necessary, and avoid nephrotoxins. (7) DVT prophylaxis: Status: Acute Assessment and plan: Holding on chemical DVT Prophylaxis secondary to Heme + Emesis. (8) Advance directive on file: Status: Acute Assessment and plan: Full Code. Subjective Subjective Interval history since last seen: 62 year old man with PMHx significant for metastatic bladder cancer on Chemotherapy, s/p Ureteroileal Conduit with a ureteral stent in place, admitted from [facility] Emergency Department on 02/20 with a diagnosis of UTI. Mr. Rosas has a past Medical History significant for metastatic Bladder Ca, with mets to the lung and liver, s/p prior nephrostomy tubes, right sided ureteral stent, and ureteroileal conduit on chemo and XRT. His other medical history includes CKD stage 5 (not on dialysis), previous hematuria with subsequent anemia, prior evidence of Proteus and Pseudomonas Urinary tract infections, COPD, and PHTN. He also had noted history of Chronic systolic CHF wih EF 35%, but on repeat ECHO in September of this year was noted to have a normalized LVEF. He presented to the ED with a progressive 1 week history of RUQ abdominal pain, fevers, and nausea with dry heaves. Initial work-up with CT imaging of the chest, abdomen, and pelvis was negative for an acute infection, but showed evidence ofa LLL Spiculated mass and innumerable hepatic lesions all suspicious for metastatic disease. Labwork was noteworthy for a leukocytosis with a WBC of 17, chronic appearing anemia, chronically elevated Creatinine, and a mild anion gap with low bicarb. Urinalysis showed Large LE and Pyuria with WBC >50, from sample obtained via patient's ureteroileal conduit. Mr. Rosas continues to be febrile through antibiotic therapy, now with broad-spectrum coverage that was initiated over 24 hours prior. Initial Urine Culture not helpful with growth of Mixed Gram Positive and negative aron, and repeat culture with Enterococcus species. Repeat CXR showed no acute pathology. He reports feeling ill. No other events reported. Remains afebrile. Exam Narrative Exam Narrative: General: Patient appears comfortable, AAOX3, does not appear to be acutely ill despite fevers Neck: Supple CV: Regular, nontachycardic, S1S2, No rubs, murmurs, or gallops. Pulmonary: Clear to auscultation bilaterally but mildly diminished diffusely, no crackles, wheezing, or rhonchi Abdomen: + Bowel Sounds, soft, nontender, nondistended. Urostomy bag from ureteral ileal conduit visible. Vascular: No lower extremity edema Psych: Normal mood and affect. Objective Objective Clinical Data: Abnormal lab results 02/26/19 02/26/19 Range/Units 08:34 08:34 WBC 12.33 H (4.4-10.8) k/cumm RBC 2.88 L (4.50-6.00) m/cumm Hgb 8.3 L (13.5-17.5) g/dL Hct 27.1 L (40.0-50.0) % MCHC 30.6 L (32.0-36.0) g/dL RDW 14.4 H (11.8-14.1) % Plt Count 433 H (130-400) x1000/uL Absolute Neutrophils 9.97 H (1.2-6.7) k/cumm Absolute Lymphocytes 0.69 L (1.2-3.4) k/cumm Absolute Monocytes 1.34 H (0.11-0.7) k/cumm BUN 29 H (7-18) mg/dL Creatinine 3.50 H (0.70-1.30) mg/dL Glucose 110 H (70-100) mg/dL Vital Signs Temperature 38.2 C H 02/26/19 16:01 Temperature Source Tympanic 02/26/19 16:01 Pulse 86 02/26/19 16:01 Pulse Rhythm Regular 02/26/19 08:58 Pulse 100 H 02/20/19 22:20 Respiratory Rate 16 02/26/19 16:01 Respiratory Effort Non-Labored 02/26/19 08:58 Respiratory Depth Normal 02/26/19 08:58 Respiratory Pattern Normal 02/26/19 08:58 Blood Pressure 138/84 02/26/19 16:01 Blood Pressure Mean 77 02/20/19 22:15 Blood Pressure Position Sitting 02/20/19 20:10 Pulse Oximetry 97 02/26/19 16:01 Oxygen Delivery Method Room Air 02/26/19 16:01 Oxygen Flow Rate 0 02/26/19 16:01 Pain Level 0 02/26/19 16:01 Comment 02/26/19 16:01 Intake & Output 02/25/19 02/26/19 02/26/19 23:59 11:59 23:59 Intake Total 1477.5 / 2517.5 2287.5 / 2577.5 290 / 2577.5 Output Total 1150 / 2750 1525 / 5 500 / 2025 Balance 327.5 / -232.5 762.5 / 552.5 -210 / 552.5 Weight 56.4 kg Intake: IV 277.5 / 597.5 1207.5 / 1257.5 50 / 1257.5 Oral 1200 / 1920 1080 / 1320 240 / 1320 Output: Drainage 850 / 2150 152 / 5 500 / 5 Right Lower Abdomen 850 / 2150 152 / 2024 500 / 2024 Urine 300 / 300 Other: Urine Color Yellow Urine Appearance Clear Clear Clear Voiding Methods Indwelling Catheter Laboratory Results WBC 12.33 k/cumm (4.4-10.8) H 02/26/19 08:34 RBC 2.88 m/cumm (4.50-6.00) L 02/26/19 08:34 Hgb 8.3 g/dL (13.5-17.5) L 02/26/19 08:34 Hct 27.1 % (40.0-50.0) L 02/26/19 08:34 MCV 94.1 fL (80-95) 02/26/19 08:34 MCH 28.8 pg (27.0-33.0) 02/26/19 08:34 MCHC 30.6 g/dL (32.0-36.0) L 02/26/19 08:34 RDW 14.4 % (11.8-14.1) H 02/26/19 08:34 Plt Count 433 x1000/uL (130-400) H 02/26/19 08:34 MPV 8.9 fL (8.0-11.0) 02/26/19 08:34 Immature Gran % 0.2 02/26/19 08:34 Neutrophils % 80.9 02/26/19 08:34 Band Neutrophils % 0.0 % 02/20/19 20:28 Lymphocytes % 5.6 02/26/19 08:34 Atypical Lymphs % 0 02/20/19 20:28 Monocytes % 10.9 02/26/19 08:34 Eosinophils % 2.2 02/26/19 08:34 Basophils % 0.2 02/26/19 08:34 Absolute Neutrophils 9.97 k/cumm (1.2-6.7) H 02/26/19 08:34 Absolute Lymphocytes 0.69 k/cumm (1.2-3.4) L 02/26/19 08:34 Absolute Monocytes 1.34 k/cumm (0.11-0.7) H 02/26/19 08:34 Absolute Eosinophils 0.27 k/cumm (0.0-0.7) 02/26/19 08:34 Absolute Basophils 0.02 k/cumm (0.0-0.2) 02/26/19 08:34 Differential Comment Manual differential 02/26/19 08:34 RBC Morphology See below 02/26/19 08:34 Polychromasia Present 02/25/19 02:11 Hypochromasia 1+ 02/25/19 02:11 Poikilocytosis 2+ 02/26/19 08:34 Basophilic Stippling Present 02/20/19 20:28 Ovalocytes 2+ 02/25/19 02:11 Sodium 138 mmol/L (136-145) 02/26/19 08:34 Potassium 3.8 mmol/L (3.5-5.1) 02/26/19 08:34 Chloride 104 mmol/L (98-107) 02/26/19 08:34 Carbon Dioxide 23.8 mmol/L (21.0-32.0) 02/26/19 08:34 Anion Gap 10.2 mmol/L (3-11) 02/26/19 08:34 BUN 29 mg/dL (7-18) H 02/26/19 08:34 Creatinine 3.50 mg/dL (0.70-1.30) H 02/26/19 08:34 Estimated GFR/1.73 m2 17.78 (mL/min/1.73m2) 02/26/19 08:34 Glucose 110 mg/dL (70-100) H 02/26/19 08:34 Lactate 0.8 mmol/L (0.6-1.4) 02/25/19 02:11 Calcium 8.5 mg/dL (8.5-10.1) 02/26/19 08:34 Magnesium 1.8 mg/dL (1.8-2.4) 02/26/19 08:34 Total Bilirubin 0.4 mg/dL (0.2-1.0) 02/21/19 07:03 AST 6 U/L (15-37) L 02/21/19 07:03 ALT < 6 U/L (16-63) L 02/21/19 07:03 Alkaline Phosphatase 171 U/L (46-116) H 02/21/19 07:03 Troponin I < 0.05 ng/mL (0.00-0.06) 02/20/19 20:28 Total Protein 6.1 g/dL (6.4-8.2) L 02/21/19 07:03 Albumin 2.1 g/dL (3.4-5.0) L 02/21/19 07:03 Lipase 52 U/L (73-393) L 02/20/19 20:28 Procalcitonin 1.2 ng/mL 02/25/19 02:11 Urine Color Yellow (Yellow) 02/25/19 08:00 Urine Clarity Clear (Clear) 02/25/19 08:00 Urine pH 6.0 (5-8) 02/25/19 08:00 Ur Specific [place] 1.010 (1.005-1.025) 02/25/19 08:00 Urine Protein 30 mg/dL (Negative) H 02/25/19 08:00 Urine Ketones Negative mg/dL (Negative) 02/25/19 08:00 Urine Blood Small (Negative) H 02/25/19 08:00 Urine Nitrite Negative (Negative) 02/25/19 08:00 Urine Bilirubin Negative (Negative) 02/25/19 08:00 Urine Urobilinogen 0.2 EU/dL (Up TO 0.2) 02/25/19 08:00 Ur Leukocyte Esterase Moderate (Negative) H 02/25/19 08:00 Urine RBC 3-5 (0-2) H 02/25/19 08:00 Urine WBC 20-50 HPF (0-5) 02/25/19 08:00 Ur Epithelial Cells Few HPF (Negative) 02/25/19 08:00 Urine Crystals Negative HPF (Negative) 02/25/19 08:00 Urine Bacteria Moderate HPF (Negative) 02/25/19 08:00 Urine Casts 0-2 coarse granular LPF (Negative) 02/25/19 08:00 Urine Mucus Trace (Negative) 02/25/19 08:00 Urine Other (Negative) 02/25/19 08:00 Ur Culture Indicated? C&s done as ordered 02/25/19 08:00 Urine Glucose Negative mg/dL (Negative) 02/25/19 08:00
[2019-02-26] MEDS: Atorvastatin 40 MG TAB 80 MG PO (19:56)
[2019-02-26] MEDS: Pantoprazole 40 MG VIAL IVP (22:27)
[2019-02-26] MEDS: Normal Saline Flush 10 ML SYR IVP (22:27)
[2019-02-27] VITALS (7 sets, daily range): BP systolic 114–158; BP diastolic 73–92; PULSE 84–109; RESP 16–19; TEMP 36.7–39.3; O2SAT 92–100
[2019-02-27] MEDS: oxyCODONE 15 MG TAB PO ×3 (06:19→21:45)
[2019-02-27] MEDS: Normal Saline 1,000 ML 75 ML IV (06:23)
[2019-02-27 07:41] LABS: Abs Immature Grans 0.02 k/cumm (0.0-0.09); Absolute Basophil Count 0.01 k/cumm (0.0-0.2); Absolute Eosinophil Count 0.24 k/cumm (0.0-0.7); Absolute Lymphocyte Count 0.42 k/cumm (1.2-3.4); Absolute Neutrophil Count 9.89 k/cumm (1.2-6.7); Basophils % 0.1; Eosinophils % 2.1; HCT 26.4 % (40.0-50.0); HGB 8.1 g/dL (13.5-17.5); Immature Grans % 0.2; Lymphocytes % 3.6; Mean Corp. HGB Concentration 30.7 g/dL (32.0-36.0); Mean Corpuscular Hemoglobin 28.6 pg (27.0-33.0); Mean Corpuscular Volume 93.3 fL (80-95); Mean Platelet Volume 9.3 fL (8.0-11.0); Monocytes % 8.6; Neutrophils % 85.4; Platelet Count 469 x1000/uL (130-400); RBC 2.83 m/cumm (4.50-6.00); RBC Distribution Width 14.2 % (11.8-14.1); White Blood Cell Count 11.58 k/cumm (4.4-10.8)
[2019-02-27 07:45] LABS: Anion Gap 10.3 mmol/L (3-11); BUN 29 mg/dL (7-18); CO2 22.7 mmol/L (21.0-32.0); CREATININE 3.46 mg/dL (0.70-1.30); Calcium 8.4 mg/dL (8.5-10.1); Chloride 105 mmol/L (98-107); Estimated GFR 18.02 (mL/min/1.73m2); Glucose 97 mg/dL (70-100); Magnesium 1.7 mg/dL (1.8-2.4); Potassium 4.1 mmol/L (3.5-5.1); Sodium 138 mmol/L (136-145)
[2019-02-27] MEDS: diphenhydrAMINE /ZINC ACET CR 30 GM TUBE TP (11:48)
[2019-02-27] MEDS: MAGNESIUM SULFATE 1 GM/100 ML BAG IVPB (12:02)
--- NOTE | 2019-02-27 14:30 | PDOC.CMPRO ---
- If Service Date Differs Date of service: 02/27/19 Time of Service: 14:30 Care Management Progress Note S/O: Cornelio is lying in bed with the covers pulled up to his chin when CM meets with him. He appears tired, struggles to keep his eyes open, and barely interacts. Cornelio remains in acute status and continues to be febrile despite treatment with antibiotics. CM will continue to follow. A: Cornelio is a 63 yo male admitted on 02/20/19 for metastatic bladder cancer, fever, UTI, and enteritis. P: Cornelio will be discharged home when medically cleared by provider. Resumption of Palliative Care when discharged. Cornelio will transport himself home in a private vehicle upon discharge. CM will continue to support patient and discharge planning needs.
--- NOTE | 2019-02-27 18:12 | W.PM.PROGNOT ---
Date of Service Date of service: 02/27/19 Time of Service: 18:12 Assessment and Plan Assessment and plan (1) Fever: Status: Acute Assessment and plan: Evidence of continued fevers, with negative blood cultures, negative imaging with a CT of the chest, abdomen, and pelvis, and negative repeat imaging with CXR and CT of the abdomen. Urinalysis remains positive, but obtained from a sample through the patient's ureteroileal conduit. Current fevers are through combination Vancomycin and Meropenem over the past 48 hours. Blood cultures remain without growth, both from the original samples and from repeat cultures obtained on 02/25. - Patient is due for stent reevaluation via [facility] - however, in the absence of any imaging findings of infection or hydro, question possible non-infectious cause as etiology for patient's continued fevers. Imaging shows evidence of significant liver mets, with Tumor Fevers high on differential. Discussed this case with the patient's urologist at [facility], who agreed that while Mr. Rosas's right-sided ureteral stent is long overdue for replacement, under the current circumstances and given the current imaging results he did not believe that it was the reason for these continued fevers. Next discussed this case with ID at [facility], who similarly believes that given the length of the patient's hospitalization, the lengthy course of antibiotics which have included fairly broad-spectrum coverage over the last 48 hours, and with continued and unabating fevers, this was unlikely to be due to an infectious etiology. Specifically discussed that if the patient was febrile from fungemia he would have presented with worsening clinical picture over the last week of his hospitalization without appropriate fungal coverage, and that if the patient's symptoms were due to a viral infection he likely would have improved by now. His recommendations were for discontinuation of antibiotic therapy, with close clinical monitoring over the next 24 hours. Discussed patient at length with with Oncology - agrees with above assessment, and recommends close clinical monitoring over the next 24 hours. (2) Hematemesis: Status: Acute Assessment and plan: Evidence of heme positive emesis, not grossly bloody or coffee-ground like. Appears to be tolerating PPI therapy. Hemoglobin is low but stable. (3) RUQ pain: Status: Acute Assessment and plan: Likely secondary to metastatic process, with imaging showing 'innumerable' mets to the liver. Also with RUQ Ureteral stent. Continue as needed oxycodone. (4) Malignant neoplasm metastatic from bladder: Status: Chronic Assessment and plan: Receiving care at [facility]. Patient with evidence of extensive liver mets, as well as a spiculated LLL Lung mass with satelite lesions. Concern for lung primary with metastatic disease - discussed case with [facility]. Patient with prior biopsy of lung lesion this summer, with pathology positive for metastatic Urothelial Ca. (5) COPD (chronic obstructive pulmonary disease): Status: Chronic Assessment and plan: Appears to be quiescent. Monitor. (6) CKD (chronic kidney disease): Status: Acute Assessment and plan: CKD Stage 5, not on Hemodialysis. Continue to monitor creatinine, renally dose medications when necessary, and avoid nephrotoxins. (7) DVT prophylaxis: Status: Acute Assessment and plan: Holding on chemical DVT Prophylaxis secondary to Heme + Emesis. (8) Advance directive on file: Status: Acute Assessment and plan: Full Code. Subjective Subjective Interval history since last seen: 62 year old man with PMHx significant for metastatic bladder cancer on Chemotherapy, s/p Ureteroileal Conduit with a ureteral stent in place, admitted from [facility] Emergency Department on 02/20 with a diagnosis of UTI. Mr. Rosas has a past Medical History significant for metastatic Bladder Ca, with mets to the lung and liver, s/p prior nephrostomy tubes, right sided ureteral stent, and ureteroileal conduit on chemo and XRT. His other medical history includes CKD stage 5 (not on dialysis), previous hematuria with subsequent anemia, prior evidence of Proteus and Pseudomonas Urinary tract infections, COPD, and PHTN. He also had noted history of Chronic systolic CHF wih EF 35%, but on repeat ECHO in September of this year was noted to have a normalized LVEF. He presented to the ED with a progressive 1 week history of RUQ abdominal pain, fevers, and nausea with dry heaves. Initial work-up with CT imaging of the chest, abdomen, and pelvis was negative for an acute infection, but showed evidence ofa LLL Spiculated mass and innumerable hepatic lesions all suspicious for metastatic disease. Labwork was noteworthy for a leukocytosis with a WBC of 17, chronic appearing anemia, chronically elevated Creatinine, and a mild anion gap with low bicarb. Urinalysis showed Large LE and Pyuria with WBC >50, from sample obtained via patient's ureteroileal conduit. Mr. Rosas continues to be febrile through antibiotic therapy, now with broad-spectrum coverage that was initiated over 48 hours prior. Initial Urine Culture not helpful with growth of Mixed Gram Positive and negative aron, and repeat culture with Enterococcus species. Repeat CXR showed no acute pathology. Patient continues to appear nontoxic, but is regularly spiking fevers in excess of 38 ?C. No other events reported. Exam Narrative Exam Narrative: General: Patient appears comfortable, AAOX3, does not appear to be acutely ill despite fevers Neck: Supple CV: Regular, nontachycardic, S1S2, No rubs, murmurs, or gallops. Pulmonary: Clear to auscultation bilaterally but mildly diminished diffusely, no crackles, wheezing, or rhonchi Abdomen: + Bowel Sounds, soft, nontender, nondistended. Urostomy bag from ureteral ileal conduit visible. Vascular: No lower extremity edema Psych: Normal mood and affect. Objective Objective Clinical Data: Abnormal lab results 02/27/19 02/27/19 Range/Units 06:54 06:54 WBC 11.58 H (4.4-10.8) k/cumm RBC 2.83 L (4.50-6.00) m/cumm Hgb 8.1 L (13.5-17.5) g/dL Hct 26.4 L (40.0-50.0) % MCHC 30.7 L (32.0-36.0) g/dL RDW 14.2 H (11.8-14.1) % Plt Count 469 H (130-400) x1000/uL Absolute Neutrophils 9.89 H (1.2-6.7) k/cumm Absolute Lymphocytes 0.42 L (1.2-3.4) k/cumm Absolute Monocytes 1.00 H (0.11-0.7) k/cumm BUN 29 H (7-18) mg/dL Creatinine 3.46 H (0.70-1.30) mg/dL Calcium 8.4 L (8.5-10.1) mg/dL Magnesium 1.7 L (1.8-2.4) mg/dL Vital Signs Temperature 38.7 C H 02/27/19 16:12 Temperature Source Tympanic 02/27/19 16:12 Pulse 88 02/27/19 16:12 Pulse Rhythm Regular 02/27/19 17:33 Pulse 100 H 02/20/19 22:20 Respiratory Rate 18 02/27/19 16:12 Respiratory Effort Non-Labored 02/27/19 17:33 Respiratory Depth Normal 02/27/19 17:33 Respiratory Pattern Normal 02/27/19 17:33 Blood Pressure 122/77 02/27/19 16:12 Blood Pressure Mean 77 02/20/19 22:15 Blood Pressure Position Sitting 02/20/19 20:10 Pulse Oximetry 94 L 02/27/19 16:12 Oxygen Delivery Method Room Air 02/27/19 16:12 Oxygen Flow Rate 0 02/27/19 16:12 Pain Level 0 02/27/19 16:12 Comment 02/26/19 18:05 Intake & Output 02/26/19 02/27/19 02/27/19 23:59 11:59 23:59 Intake Total 2138.75 / 4426.25 912.50 / 1082.50 170 / 1082.50 Output Total 2024 / 2750 700 / 2750 Balance 1638.75 / 2401.25 -1137.50 / -1667.50 -530 / -1667.50 Weight 56.2 kg Intake: IV 1658.75 / 2866.25 912.50 / 962.50 50 / 962.50 Oral 480 / 1560 120 / 120 Output: Drainage 2024 Right Lower Abdomen 2024 Urine 700 / 700 Other: Urine Color Pale Yellow Urine Appearance Clear Clear Clear Laboratory Results WBC 11.58 k/cumm (4.4-10.8) H 02/27/19 06:54 RBC 2.83 m/cumm (4.50-6.00) L 02/27/19 06:54 Hgb 8.1 g/dL (13.5-17.5) L 02/27/19 06:54 Hct 26.4 % (40.0-50.0) L 02/27/19 06:54 MCV 93.3 fL (80-95) 02/27/19 06:54 MCH 28.6 pg (27.0-33.0) 02/27/19 06:54 MCHC 30.7 g/dL (32.0-36.0) L 02/27/19 06:54 RDW 14.2 % (11.8-14.1) H 02/27/19 06:54 Plt Count 469 x1000/uL (130-400) H 02/27/19 06:54 MPV 9.3 fL (8.0-11.0) 02/27/19 06:54 Immature Gran % 0.2 02/27/19 06:54 Neutrophils % 85.4 02/27/19 06:54 Band Neutrophils % 0.0 % 02/20/19 20:28 Lymphocytes % 3.6 02/27/19 06:54 Atypical Lymphs % 0 02/20/19 20:28 Monocytes % 8.6 02/27/19 06:54 Eosinophils % 2.1 02/27/19 06:54 Basophils % 0.1 02/27/19 06:54 Absolute Neutrophils 9.89 k/cumm (1.2-6.7) H 02/27/19 06:54 Absolute Lymphocytes 0.42 k/cumm (1.2-3.4) L 02/27/19 06:54 Absolute Monocytes 1.00 k/cumm (0.11-0.7) H 02/27/19 06:54 Absolute Eosinophils 0.24 k/cumm (0.0-0.7) 02/27/19 06:54 Absolute Basophils 0.01 k/cumm (0.0-0.2) 02/27/19 06:54 Differential Comment Manual differential 02/26/19 08:34 RBC Morphology See below 02/26/19 08:34 Polychromasia Present 02/25/19 02:11 Hypochromasia 1+ 02/25/19 02:11 Poikilocytosis 2+ 02/26/19 08:34 Basophilic Stippling Present 02/20/19 20:28 Ovalocytes 2+ 02/25/19 02:11 Sodium 138 mmol/L (136-145) 02/27/19 06:54 Potassium 4.1 mmol/L (3.5-5.1) 02/27/19 06:54 Chloride 105 mmol/L (98-107) 02/27/19 06:54 Carbon Dioxide 22.7 mmol/L (21.0-32.0) 02/27/19 06:54 Anion Gap 10.3 mmol/L (3-11) 02/27/19 06:54 BUN 29 mg/dL (7-18) H 02/27/19 06:54 Creatinine 3.46 mg/dL (0.70-1.30) H 02/27/19 06:54 Estimated GFR/1.73 m2 18.02 (mL/min/1.73m2) 02/27/19 06:54 Glucose 97 mg/dL (70-100) 02/27/19 06:54 Lactate 0.8 mmol/L (0.6-1.4) 02/25/19 02:11 Calcium 8.4 mg/dL (8.5-10.1) L 02/27/19 06:54 Magnesium 1.7 mg/dL (1.8-2.4) L 02/27/19 06:54 Total Bilirubin 0.4 mg/dL (0.2-1.0) 02/21/19 07:03 AST 6 U/L (15-37) L 02/21/19 07:03 ALT < 6 U/L (16-63) L 02/21/19 07:03 Alkaline Phosphatase 171 U/L (46-116) H 02/21/19 07:03 Troponin I < 0.05 ng/mL (0.00-0.06) 02/20/19 20:28 Total Protein 6.1 g/dL (6.4-8.2) L 02/21/19 07:03 Albumin 2.1 g/dL (3.4-5.0) L 02/21/19 07:03 Lipase 52 U/L (73-393) L 02/20/19 20:28 Procalcitonin 1.2 ng/mL 02/25/19 02:11 Urine Color Yellow (Yellow) 02/25/19 08:00 Urine Clarity Clear (Clear) 02/25/19 08:00 Urine pH 6.0 (5-8) 02/25/19 08:00 Ur Specific [place] 1.010 (1.005-1.025) 02/25/19 08:00 Urine Protein 30 mg/dL (Negative) H 02/25/19 08:00 Urine Ketones Negative mg/dL (Negative) 02/25/19 08:00 Urine Blood Small (Negative) H 02/25/19 08:00 Urine Nitrite Negative (Negative) 02/25/19 08:00 Urine Bilirubin Negative (Negative) 02/25/19 08:00 Urine Urobilinogen 0.2 EU/dL (Up TO 0.2) 02/25/19 08:00 Ur Leukocyte Esterase Moderate (Negative) H 02/25/19 08:00 Urine RBC 3-5 (0-2) H 02/25/19 08:00 Urine WBC 20-50 HPF (0-5) 02/25/19 08:00 Ur Epithelial Cells Few HPF (Negative) 02/25/19 08:00 Urine Crystals Negative HPF (Negative) 02/25/19 08:00 Urine Bacteria Moderate HPF (Negative) 02/25/19 08:00 Urine Casts 0-2 coarse granular LPF (Negative) 02/25/19 08:00 Urine Mucus Trace (Negative) 02/25/19 08:00 Urine Other (Negative) 02/25/19 08:00 Ur Culture Indicated? C&s done as ordered 02/25/19 08:00 Urine Glucose Negative mg/dL (Negative) 02/25/19 08:00
[2019-02-27] MEDS: Atorvastatin 40 MG TAB 80 MG PO (19:18)
[2019-02-27] MEDS: Acetaminophen 325 MG TAB 650 MG PO (19:57)
[2019-02-27] MEDS: Normal Saline Flush 10 ML SYR IVP (21:46)
[2019-02-27] MEDS: Pantoprazole 40 MG VIAL IVP (21:46)
[2019-02-28] VITALS (8 sets, daily range): BP systolic 104–152; BP diastolic 68–91; PULSE 63–100; RESP 16–20; TEMP 35.8–38; O2SAT 94–97
[2019-02-28] MEDS: oxyCODONE 15 MG TAB PO ×3 (05:36→21:08)
[2019-02-28 07:21] LABS: Abs Immature Grans 0.03 k/cumm (0.0-0.09); Absolute Basophil Count 0.03 k/cumm (0.0-0.2); Absolute Eosinophil Count 0.37 k/cumm (0.0-0.7); Absolute Lymphocyte Count 0.75 k/cumm (1.2-3.4); Absolute Monocyte Count 1.18 k/cumm (0.11-0.7); Absolute Neutrophil Count 7.72 k/cumm (1.2-6.7); Basophils % 0.3; Eosinophils % 3.7; HCT 25.4 % (40.0-50.0); HGB 7.7 g/dL (13.5-17.5); Immature Grans % 0.3; Lymphocytes % 7.4; Mean Corp. HGB Concentration 30.3 g/dL (32.0-36.0); Mean Corpuscular Hemoglobin 28.4 pg (27.0-33.0); Mean Corpuscular Volume 93.7 fL (80-95); Mean Platelet Volume 9.5 fL (8.0-11.0); Monocytes % 11.7; Neutrophils % 76.6; Platelet Count 440 x1000/uL (130-400); RBC 2.71 m/cumm (4.50-6.00); RBC Distribution Width 14.5 % (11.8-14.1); White Blood Cell Count 10.08 k/cumm (4.4-10.8)
[2019-02-28 07:49] LABS: BUN 29 mg/dL (7-18); Calcium 8.6 mg/dL (8.5-10.1); Chloride 105 mmol/L (98-107); Estimated GFR 17.32 (mL/min/1.73m2); Glucose 98 mg/dL (70-100); Potassium 4.6 mmol/L (3.5-5.1); Sodium 138 mmol/L (136-145)
[2019-02-28 07:50] LABS: Diff Comment Agrees w/ Instrument; Polychromasia Present
[2019-02-28 07:51] LABS: Hypochromasia 3+; Poikilocytes 3+
[2019-02-28 07:54] LABS: CREATININE 3.58 mg/dL (0.70-1.30)
[2019-02-28] MEDS: Normal Saline Flush 10 ML SYR IVP ×2 (09:34→21:08)
[2019-02-28] MEDS: Metoclopramide 10 MG/2 ML VIAL IVP (09:34)
--- NOTE | 2019-02-28 15:06 | CHAPLAIN ---
Cornelio was in bed resting, and seemed tired when I visited this morning. He said has family, including uncles and five sons, who live [place]. He doesn't know if any of them will visit. He has a cellphone but isn't sure that anyone will call him. He responded to a few questions, but did not seem interested in further conversation and asked me to shut the door when I left because he didn't want to listen to that circus out there.
--- NOTE | 2019-02-28 15:19 | PDOC.CMPRO ---
- If Service Date Differs Date of service: 02/28/19 Time of Service: 15:19 Care Management Progress Note S/O: Cornelio is sitting up in bed, watching television when CM meets with him. He is more interactive than he was yesterday and states he is feeling a little bit better but still tires easily. He remains in acute status with continued fevers. Cornelio met with Dr. Tracy Roberson of Palliative Care earlier today. He has an appointment scheduled at [facility] tomorrow afternoon for a stent reevaluation. Cornelio will return to [facility] after the appointment. CM will continue to follow. A: Cornelio is a 63 yo male admitted on 02/20/19 for metastatic bladder cancer, fever, UTI, and enteritis. P: Cornelio will be discharged home when medically cleared by provider. Resumption of Palliative Care when discharged. Cornelio will transport himself home in a private vehicle upon discharge. CM will continue to support patient and discharge planning needs.
[2019-02-28] MEDS: VANCOMYCIN 750 MG in Normal Saline 250 ML 166.667 MG IV (16:39)
[2019-02-28] MEDS: diphenhydrAMINE /ZINC ACET CR 30 GM TUBE TP (18:02)
--- NOTE | 2019-02-28 18:52 | W.PM.PROGNOT ---
Date of Service Date of service: 02/28/19 Time of Service: 18:52 Assessment and Plan Assessment and plan (1) Fever: Status: Acute Assessment and plan: Evidence of continued fevers, with negative blood cultures, negative imaging with a CT of the chest, abdomen, and pelvis, and negative repeat imaging with CXR and CT of the abdomen. Urinalysis remains positive, but obtained from a sample through the patient's ureteroileal conduit. Current fevers are through combination Vancomycin and Meropenem. Blood cultures remain without growth, both from the original samples and from repeat cultures obtained on 02/25. - Patient is due for stent reevaluation via [facility] [place] - this remains as the last potential source for infection. However, in the absence of any imaging findings of infection or hydro, question possible non-infectious cause as etiology for patient's continued fevers. Imaging shows evidence of significant liver mets, with Tumor Fevers high on differential. Plan is for transfer to [facility] for a down and back procedure via IR, for stent change tomorrow. If the patient continues to have recurrent fevers will make likelihood of malignancy related fevers more likely. Discussed this case with the patient's urologist at [facility], ID at [facility], as well as oncology. (2) Hematemesis: Status: Acute Assessment and plan: Evidence of heme positive emesis, not grossly bloody or coffee-ground like. Appears to be tolerating PPI therapy. Hemoglobin is low but stable. Last Emesis was heme checked negative. (3) RUQ pain: Status: Acute Assessment and plan: Likely secondary to metastatic process, with imaging showing 'innumerable' mets to the liver. Also with RUQ Ureteral stent. Continue as needed oxycodone. Pain currently managed well and resolved. (4) Malignant neoplasm metastatic from bladder: Status: Chronic Assessment and plan: Receiving care at [facility]. Patient with evidence of extensive liver mets, as well as a spiculated LLL Lung mass with satelite lesions. Concern for lung primary with metastatic disease - discussed case with [facility]. Patient with prior biopsy of lung lesion this summer, with pathology positive for metastatic Urothelial Ca. (5) COPD (chronic obstructive pulmonary disease): Status: Chronic Assessment and plan: Appears to be quiescent. Monitor. (6) CKD (chronic kidney disease): Status: Acute Assessment and plan: CKD Stage 5, not on Hemodialysis. Continue to monitor creatinine, renally dose medications when necessary, and avoid nephrotoxins. (7) DVT prophylaxis: Status: Acute Assessment and plan: Initiate on chemical DVT Prophylaxis. Emesis is no longer Heme +. (8) Advance directive on file: Status: Acute Assessment and plan: DNR/DNI following discussion with Palliative Care. Subjective Subjective Interval history since last seen: 62 year old man with PMHx significant for metastatic bladder cancer on Chemotherapy, s/p Ureteroileal Conduit with a ureteral stent in place, admitted from [facility] Emergency Department on 02/20 with a diagnosis of UTI. Mr. Rosas has a past Medical History significant for metastatic Bladder Ca, with mets to the lung and liver, s/p prior nephrostomy tubes, right sided ureteral stent, and ureteroileal conduit on chemo and XRT. His other medical history includes CKD stage 5 (not on dialysis), previous hematuria with subsequent anemia, prior evidence of Proteus and Pseudomonas Urinary tract infections, COPD, and PHTN. He also had noted history of Chronic systolic CHF wih EF 35%, but on repeat ECHO in September of this year was noted to have a normalized LVEF. He presented to the ED with a progressive 1 week history of RUQ abdominal pain, fevers, and nausea with dry heaves. Initial work-up with CT imaging of the chest, abdomen, and pelvis was negative for an acute infection, but showed evidence ofa LLL Spiculated mass and innumerable hepatic lesions all suspicious for metastatic disease. Labwork was noteworthy for a leukocytosis with a WBC of 17, chronic appearing anemia, chronically elevated Creatinine, and a mild anion gap with low bicarb. Urinalysis showed Large LE and Pyuria with WBC >50, from sample obtained via patient's ureteroileal conduit. Mr. Rosas continued to be febrile through antibiotic therapy, and febrile with discontinuation. Initial Urine Culture not helpful with growth of Mixed Gram Positive and negative aron, and repeat culture with Enterococcus species. Repeat CXR showed no acute pathology, and Blood Cultures remain negative Patient continues to appear nontoxic, but is regularly spiking fevers in excess of 38 ?C, and with intermittent concurrent nausea and vomiting. No other events reported. Exam Narrative Exam Narrative: General: Patient appears comfortable, AAOX3, does not appear to be acutely ill despite fevers Neck: Supple CV: Regular, nontachycardic, S1S2, No rubs, murmurs, or gallops. Pulmonary: Clear to auscultation bilaterally but mildly diminished diffusely, no crackles, wheezing, or rhonchi Abdomen: + Bowel Sounds, soft, nontender, nondistended. Urostomy bag from ureteral ileal conduit visible. Vascular: No lower extremity edema Psych: Normal mood and affect. Objective Objective Clinical Data: Abnormal lab results 02/28/19 02/28/19 Range/Units 06:55 06:55 RBC 2.71 L (4.50-6.00) m/cumm Hgb 7.7 L (13.5-17.5) g/dL Hct 25.4 L (40.0-50.0) % MCHC 30.3 L (32.0-36.0) g/dL RDW 14.5 H (11.8-14.1) % Plt Count 440 H (130-400) x1000/uL Absolute Neutrophils 7.72 H (1.2-6.7) k/cumm Absolute Lymphocytes 0.75 L (1.2-3.4) k/cumm Absolute Monocytes 1.18 H (0.11-0.7) k/cumm BUN 29 H (7-18) mg/dL Creatinine 3.58 H* (0.70-1.30) mg/dL Vital Signs Temperature 36.8 C 02/28/19 16:03 Temperature Source Tympanic 02/28/19 16:03 Pulse 83 02/28/19 16:03 Pulse Rhythm Regular 02/28/19 08:15 Pulse 100 H 02/20/19 22:20 Respiratory Rate 17 02/28/19 16:03 Respiratory Effort Non-Labored 02/28/19 08:15 Respiratory Depth Normal 02/28/19 08:15 Respiratory Pattern Normal 02/28/19 08:15 Blood Pressure 124/81 02/28/19 16:03 Blood Pressure Mean 77 02/20/19 22:15 Blood Pressure Position Sitting 02/20/19 20:10 Pulse Oximetry 97 02/28/19 16:03 Oxygen Delivery Method Room Air 02/28/19 16:03 Oxygen Flow Rate 0 02/28/19 16:03 Pain Level 0 02/28/19 16:03 Comment 02/26/19 18:05 Intake & Output 02/27/19 02/28/19 02/28/19 23:59 11:59 23:59 Intake Total 220 / 1132.50 1000 / 1300 300 / 1300 Output Total 700 / 2750 750 / 750 Balance -480 / -1617.50 250 / 550 300 / 550 Weight 56.5 kg Intake: IV 100 / 1012.50 1000 / 1050 50 / 1050 Oral 120 / 120 250 / 250 Output: Urine 700 / 700 700 / 700 Emesis 50 / 50 Other: Urine Color Pale Yellow Yellow Urine Appearance Clear Clear Comment WENT INTO ROOM TO EMPTY LAM BAG FROM ILEAL CONDUIT AND PT STATED IT HAD BEEN EMPTIED 5 MINS PRIOR. Emesis Description Retching Undigested Food Gastric Occult Blood Negative Voiding Methods Ileal Conduit (Right) Laboratory Results WBC 10.08 k/cumm (4.4-10.8) 02/28/19 06:55 RBC 2.71 m/cumm (4.50-6.00) L 02/28/19 06:55 Hgb 7.7 g/dL (13.5-17.5) L 02/28/19 06:55 Hct 25.4 % (40.0-50.0) L 02/28/19 06:55 MCV 93.7 fL (80-95) 02/28/19 06:55 MCH 28.4 pg (27.0-33.0) 02/28/19 06:55 MCHC 30.3 g/dL (32.0-36.0) L 02/28/19 06:55 RDW 14.5 % (11.8-14.1) H 02/28/19 06:55 Plt Count 440 x1000/uL (130-400) H 02/28/19 06:55 MPV 9.5 fL (8.0-11.0) 02/28/19 06:55 Immature Gran % 0.3 02/28/19 06:55 Neutrophils % 76.6 02/28/19 06:55 Band Neutrophils % 0.0 % 02/20/19 20:28 Lymphocytes % 7.4 02/28/19 06:55 Atypical Lymphs % 0 02/20/19 20:28 Monocytes % 11.7 02/28/19 06:55 Eosinophils % 3.7 02/28/19 06:55 Basophils % 0.3 02/28/19 06:55 Absolute Neutrophils 7.72 k/cumm (1.2-6.7) H 02/28/19 06:55 Absolute Lymphocytes 0.75 k/cumm (1.2-3.4) L 02/28/19 06:55 Absolute Monocytes 1.18 k/cumm (0.11-0.7) H 02/28/19 06:55 Absolute Eosinophils 0.37 k/cumm (0.0-0.7) 02/28/19 06:55 Absolute Basophils 0.03 k/cumm (0.0-0.2) 02/28/19 06:55 Differential Comment Agrees w/ instrument 02/28/19 06:55 RBC Morphology See below 02/28/19 06:55 Polychromasia Present 02/28/19 06:55 Hypochromasia 3+ 02/28/19 06:55 Poikilocytosis 3+ 02/28/19 06:55 Basophilic Stippling Present 02/20/19 20:28 Ovalocytes 2+ 02/25/19 02:11 Sodium 138 mmol/L (136-145) 02/28/19 06:55 Potassium 4.6 mmol/L (3.5-5.1) 02/28/19 06:55 Chloride 105 mmol/L (98-107) 02/28/19 06:55 Carbon Dioxide 24.0 mmol/L (21.0-32.0) 02/28/19 06:55 Anion Gap 9.0 mmol/L (3-11) 02/28/19 06:55 BUN 29 mg/dL (7-18) H 02/28/19 06:55 Creatinine 3.58 mg/dL (0.70-1.30) H* 02/28/19 06:55 Estimated GFR/1.73 m2 17.32 (mL/min/1.73m2) 02/28/19 06:55 Glucose 98 mg/dL (70-100) 02/28/19 06:55 Lactate 0.8 mmol/L (0.6-1.4) 02/25/19 02:11 Calcium 8.6 mg/dL (8.5-10.1) 02/28/19 06:55 Magnesium 2.0 mg/dL (1.8-2.4) 02/28/19 06:55 Total Bilirubin 0.4 mg/dL (0.2-1.0) 02/21/19 07:03 AST 6 U/L (15-37) L 02/21/19 07:03 ALT < 6 U/L (16-63) L 02/21/19 07:03 Alkaline Phosphatase 171 U/L (46-116) H 02/21/19 07:03 Troponin I < 0.05 ng/mL (0.00-0.06) 02/20/19 20:28 Total Protein 6.1 g/dL (6.4-8.2) L 02/21/19 07:03 Albumin 2.1 g/dL (3.4-5.0) L 02/21/19 07:03 Lipase 52 U/L (73-393) L 02/20/19 20:28 Procalcitonin 1.2 ng/mL 02/25/19 02:11 Urine Color Yellow (Yellow) 02/25/19 08:00 Urine Clarity Clear (Clear) 02/25/19 08:00 Urine pH 6.0 (5-8) 02/25/19 08:00 Ur Specific [place] 1.010 (1.005-1.025) 02/25/19 08:00 Urine Protein 30 mg/dL (Negative) H 02/25/19 08:00 Urine Ketones Negative mg/dL (Negative) 02/25/19 08:00 Urine Blood Small (Negative) H 02/25/19 08:00 Urine Nitrite Negative (Negative) 02/25/19 08:00 Urine Bilirubin Negative (Negative) 02/25/19 08:00 Urine Urobilinogen 0.2 EU/dL (Up TO 0.2) 02/25/19 08:00 Ur Leukocyte Esterase Moderate (Negative) H 02/25/19 08:00 Urine RBC 3-5 (0-2) H 02/25/19 08:00 Urine WBC 20-50 HPF (0-5) 02/25/19 08:00 Ur Epithelial Cells Few HPF (Negative) 02/25/19 08:00 Urine Crystals Negative HPF (Negative) 02/25/19 08:00 Urine Bacteria Moderate HPF (Negative) 02/25/19 08:00 Urine Casts 0-2 coarse granular LPF (Negative) 02/25/19 08:00 Urine Mucus Trace (Negative) 02/25/19 08:00 Urine Other (Negative) 02/25/19 08:00 Ur Culture Indicated? C&s done as ordered 02/25/19 08:00 Urine Glucose Negative mg/dL (Negative) 02/25/19 08:00
[2019-02-28] MEDS: Heparin 5,000 UNITS/ML VIAL 5000 UNITS SC (21:07)
[2019-02-28] MEDS: Pantoprazole 40 MG VIAL IVP (21:07)
[2019-02-28] MEDS: Atorvastatin 40 MG TAB 80 MG PO (21:07)
[2019-03-01] MEDS: Normal Saline Flush 10 ML SYR IVP ×4 (03:11→21:44)
[2019-03-01 04:25] VITALS: BP 139/88; PULSE 82; RESP 16; TEMP 37; O2SAT 97
[2019-03-01] MEDS: Heparin 5,000 UNITS/ML VIAL 5000 UNITS SC ×3 (04:29→20:31)
[2019-03-01] MEDS: oxyCODONE 15 MG TAB PO ×3 (06:32→21:24)
[2019-03-01 07:14] LABS: Abs Immature Grans 0.02 k/cumm (0.0-0.09); Absolute Basophil Count 0.02 k/cumm (0.0-0.2); Absolute Eosinophil Count 0.29 k/cumm (0.0-0.7); Absolute Lymphocyte Count 0.79 k/cumm (1.2-3.4); Absolute Monocyte Count 0.99 k/cumm (0.11-0.7); Absolute Neutrophil Count 6.16 k/cumm (1.2-6.7); Basophils % 0.2; Eosinophils % 3.5; HCT 24.4 % (40.0-50.0); HGB 7.4 g/dL (13.5-17.5); Immature Grans % 0.2; Lymphocytes % 9.6; Mean Corp. HGB Concentration 30.3 g/dL (32.0-36.0); Mean Corpuscular Hemoglobin 28.1 pg (27.0-33.0); Mean Corpuscular Volume 92.8 fL (80-95); Neutrophils % 74.5; Platelet Count 410 x1000/uL (130-400); RBC 2.63 m/cumm (4.50-6.00); RBC Distribution Width 14.3 % (11.8-14.1); White Blood Cell Count 8.27 k/cumm (4.4-10.8)
[2019-03-01 07:24] LABS: Anion Gap 7.8 mmol/L (3-11); BUN 34 mg/dL (7-18); CO2 24.2 mmol/L (21.0-32.0); Calcium 8.3 mg/dL (8.5-10.1); Chloride 103 mmol/L (98-107); Estimated GFR 16.52 (mL/min/1.73m2); Glucose 89 mg/dL (70-100); Magnesium 1.8 mg/dL (1.8-2.4); Potassium 3.9 mmol/L (3.5-5.1); Sodium 135 mmol/L (136-145)
[2019-03-01 07:48] LABS: CREATININE 3.73 mg/dL (0.70-1.30)
[2019-03-01 07:50] VITALS: BP 126/78; PULSE 83; RESP 20; TEMP 36.7; O2SAT 95
[2019-03-01] MEDS: Magnesium Oxide 400 MG TAB PO (11:15)
[2019-03-01] MEDS: Potassium Chloride 10 MEQ TABCR PO (11:15)
[2019-03-01 12:00] VITALS: BP 144/85; PULSE 93; RESP 18; TEMP 37.3; O2SAT 96
[2019-03-01] MEDS: Metoclopramide 10 MG/2 ML VIAL IVP (12:58)
[2019-03-01 18:35] VITALS: BP 157/91; PULSE 63; RESP 18; TEMP 38.3; O2SAT 99
[2019-03-01 18:58] VITALS: TEMP 38.3
[2019-03-01] MEDS: Acetaminophen 325 MG TAB 650 MG PO (18:58)
[2019-03-01 19:58] VITALS: TEMP 37
--- NOTE | 2019-03-01 20:17 | W.PM.PROGNOT ---
Date of Service Date of service: 03/01/19 Time of Service: 20:17 Assessment and Plan Assessment and plan (1) Fever: Status: Acute Assessment and plan: Evidence of continued fevers, with negative blood cultures, negative imaging with a CT of the chest, abdomen, and pelvis, and negative repeat imaging with CXR and CT of the abdomen. Urinalysis remains positive, but obtained from a sample through the patient's ureteroileal conduit. Current fevers are through combination Vancomycin and Meropenem. Blood cultures remain without growth, both from the original samples and from repeat cultures obtained on 02/25. - Patient is due for stent reevaluation via [facility] - this remains as the last potential source for infection. However, in the absence of any imaging findings of infection or hydro, question possible non-infectious cause as etiology for patient's continued fevers. Imaging shows evidence of significant liver mets, with Tumor Fevers high on differential. Plan is for transfer to [facility] today for a down and back procedure via IR for stent change. If the patient continues to have recurrent fevers despite this and broad-spectrum antibiotics, will make likelihood of malignancy related fevers more likely. Discussed this case with the patient's urologist at [facility], ID at [facility], as well as oncology. (2) Hematemesis: Status: Acute Assessment and plan: Evidence of heme positive emesis, not grossly bloody or coffee-ground like. Appears to be tolerating PPI therapy. Hemoglobin is low but stable. Last Emesis was heme checked negative. (3) RUQ pain: Status: Acute Assessment and plan: Likely secondary to metastatic process, with imaging showing 'innumerable' mets to the liver. Also with RUQ Ureteral stent. Continue as needed oxycodone. Pain currently managed well and resolved. (4) Malignant neoplasm metastatic from bladder: Status: Chronic Assessment and plan: Receiving care at [facility]. Patient with evidence of extensive liver mets, as well as a spiculated LLL Lung mass with satelite lesions. Concern for lung primary with metastatic disease - discussed case with [facility]. Patient with prior biopsy of lung lesion this summer, with pathology positive for metastatic Urothelial Ca. (5) COPD (chronic obstructive pulmonary disease): Status: Chronic Assessment and plan: Appears to be quiescent. Monitor. (6) CKD (chronic kidney disease): Status: Acute Assessment and plan: CKD Stage 5, not on Hemodialysis. Continue to monitor creatinine, renally dose medications when necessary, and avoid nephrotoxins. (7) Anemia: Status: Chronic Assessment and plan: Monitor, and consider transfusion if appropriate. (8) DVT prophylaxis: Status: Acute Assessment and plan: Initiated on chemical DVT Prophylaxis. Emesis is no longer Heme +. (9) Advance directive on file: Status: Acute Assessment and plan: DNR/DNI following discussion with Palliative Care. Subjective Subjective Interval history since last seen: 62 year old man with PMHx significant for metastatic bladder cancer on Chemotherapy, s/p Ureteroileal Conduit with a ureteral stent in place, admitted from [facility] Emergency Department on 02/20 with a diagnosis of UTI. Mr. Rosas has a past Medical History significant for metastatic Bladder Ca, with mets to the lung and liver, s/p prior nephrostomy tubes, right sided ureteral stent, and ureteroileal conduit on chemo and XRT. His other medical history includes CKD stage 5 (not on dialysis), previous hematuria with subsequent anemia, prior evidence of Proteus and Pseudomonas Urinary tract infections, COPD, and PHTN. He also had noted history of Chronic systolic CHF wih EF 35%, but on repeat ECHO in September of this year was noted to have a normalized LVEF. He presented to the ED with a progressive 1 week history of RUQ abdominal pain, fevers, and nausea with dry heaves. Initial work-up with CT imaging of the chest, abdomen, and pelvis was negative for an acute infection, but showed evidence ofa LLL Spiculated mass and innumerable hepatic lesions all suspicious for metastatic disease. Labwork was noteworthy for a leukocytosis with a WBC of 17, chronic appearing anemia, chronically elevated Creatinine, and a mild anion gap with low bicarb. Urinalysis showed Large LE and Pyuria with WBC >50, from sample obtained via patient's ureteroileal conduit. Mr. Rosas continued to be febrile through antibiotic therapy, and febrile with discontinuation. Initial Urine Culture not helpful with growth of Mixed Gram Positive and negative aron, and repeat culture with Enterococcus species (Via ileal conduit). Repeat CXR showed no acute pathology, and Blood Cultures remain negative Patient continues to appear nontoxic, but is regularly spiking fevers in excess of 38 ?C, and with intermittent concurrent nausea and vomiting. Is traveling to [facility] for Ureteral stent replacement via IR. No other events reported. Exam Narrative Exam Narrative: General: Patient appears comfortable, AAOX3, does not appear to be acutely ill despite fevers. Pallor noted. Neck: Supple CV: Regular, nontachycardic, S1S2, No rubs, murmurs, or gallops. Pulmonary: Clear to auscultation bilaterally but mildly diminished diffusely, no crackles, wheezing, or rhonchi Abdomen: + Bowel Sounds, soft, nontender, nondistended. Urostomy bag from ureteral ileal conduit visible. Vascular: No lower extremity edema Psych: Normal mood and affect. Objective Objective Clinical Data: Abnormal lab results 03/01/19 03/01/19 Range/Units 06:42 06:42 RBC 2.63 L (4.50-6.00) m/cumm Hgb 7.4 L (13.5-17.5) g/dL Hct 24.4 L (40.0-50.0) % MCHC 30.3 L (32.0-36.0) g/dL RDW 14.3 H (11.8-14.1) % Plt Count 410 H (130-400) x1000/uL Absolute Lymphocytes 0.79 L (1.2-3.4) k/cumm Absolute Monocytes 0.99 H (0.11-0.7) k/cumm Sodium 135 L (136-145) mmol/L BUN 34 H (7-18) mg/dL Creatinine 3.73 H* (0.70-1.30) mg/dL Calcium 8.3 L (8.5-10.1) mg/dL Vital Signs Temperature 38.3 C H 03/01/19 18:58 Temperature Source Tympanic 03/01/19 18:35 Pulse 63 03/01/19 18:35 Pulse Rhythm Regular 03/01/19 19:34 Pulse 100 H 02/20/19 22:20 Respiratory Rate 18 03/01/19 18:35 Respiratory Effort Non-Labored 03/01/19 19:34 Respiratory Depth Normal 03/01/19 19:34 Respiratory Pattern Normal 03/01/19 19:34 Blood Pressure 157/91 H 03/01/19 18:35 Blood Pressure Mean 77 02/20/19 22:15 Blood Pressure Position Sitting 02/20/19 20:10 Pulse Oximetry 99 03/01/19 18:35 Oxygen Delivery Method Nasal Cannula 03/01/19 18:35 Oxygen Flow Rate 2 03/01/19 18:35 Pain Level 0 03/01/19 18:35 Comment 03/01/19 12:00 Intake & Output 02/28/19 03/01/19 03/01/19 23:59 11:59 23:59 Intake Total 320 / 1320 510 / 630 120 / 630 Output Total 1300 / 2050 1200 / 1200 Balance -980 / -730 -690 / -570 120 / -570 Weight 56.5 kg Intake: IV 70 / 1070 60 / 60 Oral 250 / 250 450 / 570 120 / 570 Output: Urine 1300 / 2000 1200 / 1200 Other: Urine Color Yellow Yellow Urine Appearance Clear Clear Clear Mucous Threads Mucous Threads Laboratory Results WBC 8.27 k/cumm (4.4-10.8) 03/01/19 06:42 RBC 2.63 m/cumm (4.50-6.00) L 03/01/19 06:42 Hgb 7.4 g/dL (13.5-17.5) L 03/01/19 06:42 Hct 24.4 % (40.0-50.0) L 03/01/19 06:42 MCV 92.8 fL (80-95) 03/01/19 06:42 MCH 28.1 pg (27.0-33.0) 03/01/19 06:42 MCHC 30.3 g/dL (32.0-36.0) L 03/01/19 06:42 RDW 14.3 % (11.8-14.1) H 03/01/19 06:42 Plt Count 410 x1000/uL (130-400) H 03/01/19 06:42 MPV 10.0 fL (8.0-11.0) 03/01/19 06:42 Immature Gran % 0.2 03/01/19 06:42 Neutrophils % 74.5 03/01/19 06:42 Band Neutrophils % 0.0 % 02/20/19 20:28 Lymphocytes % 9.6 03/01/19 06:42 Atypical Lymphs % 0 02/20/19 20:28 Monocytes % 12.0 03/01/19 06:42 Eosinophils % 3.5 03/01/19 06:42 Basophils % 0.2 03/01/19 06:42 Absolute Neutrophils 6.16 k/cumm (1.2-6.7) 03/01/19 06:42 Absolute Lymphocytes 0.79 k/cumm (1.2-3.4) L 03/01/19 06:42 Absolute Monocytes 0.99 k/cumm (0.11-0.7) H 03/01/19 06:42 Absolute Eosinophils 0.29 k/cumm (0.0-0.7) 03/01/19 06:42 Absolute Basophils 0.02 k/cumm (0.0-0.2) 03/01/19 06:42 Differential Comment Agrees w/ instrument 02/28/19 06:55 RBC Morphology See below 02/28/19 06:55 Polychromasia Present 02/28/19 06:55 Hypochromasia 3+ 02/28/19 06:55 Poikilocytosis 3+ 02/28/19 06:55 Basophilic Stippling Present 02/20/19 20:28 Ovalocytes 2+ 02/25/19 02:11 Sodium 135 mmol/L (136-145) L 03/01/19 06:42 Potassium 3.9 mmol/L (3.5-5.1) 03/01/19 06:42 Chloride 103 mmol/L (98-107) 03/01/19 06:42 Carbon Dioxide 24.2 mmol/L (21.0-32.0) 03/01/19 06:42 Anion Gap 7.8 mmol/L (3-11) 03/01/19 06:42 BUN 34 mg/dL (7-18) H 03/01/19 06:42 Creatinine 3.73 mg/dL (0.70-1.30) H* 03/01/19 06:42 Estimated GFR/1.73 m2 16.52 (mL/min/1.73m2) 03/01/19 06:42 Glucose 89 mg/dL (70-100) 03/01/19 06:42 Lactate 0.8 mmol/L (0.6-1.4) 02/25/19 02:11 Calcium 8.3 mg/dL (8.5-10.1) L 03/01/19 06:42 Magnesium 1.8 mg/dL (1.8-2.4) 03/01/19 06:42 Total Bilirubin 0.4 mg/dL (0.2-1.0) 02/21/19 07:03 AST 6 U/L (15-37) L 02/21/19 07:03 ALT < 6 U/L (16-63) L 02/21/19 07:03 Alkaline Phosphatase 171 U/L (46-116) H 02/21/19 07:03 Troponin I < 0.05 ng/mL (0.00-0.06) 02/20/19 20:28 Total Protein 6.1 g/dL (6.4-8.2) L 02/21/19 07:03 Albumin 2.1 g/dL (3.4-5.0) L 02/21/19 07:03 Lipase 52 U/L (73-393) L 02/20/19 20:28 Procalcitonin 1.2 ng/mL 02/25/19 02:11 Urine Color Yellow (Yellow) 02/25/19 08:00 Urine Clarity Clear (Clear) 02/25/19 08:00 Urine pH 6.0 (5-8) 02/25/19 08:00 Ur Specific [place] 1.010 (1.005-1.025) 02/25/19 08:00 Urine Protein 30 mg/dL (Negative) H 02/25/19 08:00 Urine Ketones Negative mg/dL (Negative) 02/25/19 08:00 Urine Blood Small (Negative) H 02/25/19 08:00 Urine Nitrite Negative (Negative) 02/25/19 08:00 Urine Bilirubin Negative (Negative) 02/25/19 08:00 Urine Urobilinogen 0.2 EU/dL (Up TO 0.2) 02/25/19 08:00 Ur Leukocyte Esterase Moderate (Negative) H 02/25/19 08:00 Urine RBC 3-5 (0-2) H 02/25/19 08:00 Urine WBC 20-50 HPF (0-5) 02/25/19 08:00 Ur Epithelial Cells Few HPF (Negative) 02/25/19 08:00 Urine Crystals Negative HPF (Negative) 02/25/19 08:00 Urine Bacteria Moderate HPF (Negative) 02/25/19 08:00 Urine Casts 0-2 coarse granular LPF (Negative) 02/25/19 08:00 Urine Mucus Trace (Negative) 02/25/19 08:00 Urine Other (Negative) 02/25/19 08:00 Ur Culture Indicated? C&s done as ordered 02/25/19 08:00 Urine Glucose Negative mg/dL (Negative) 02/25/19 08:00
[2019-03-01] MEDS: Atorvastatin 40 MG TAB 80 MG PO (20:31)
--- NOTE | 2019-03-01 21:22 | PCPN_ITS ---
Date of service: 02/28/19 Assessment and Plan Assessment and plan (1) Fever: Status: Chronic Assessment and plan: likely due to his cancer, not infection by this point has been hospitalized much longer than anticipated he is slightly irritated by this, wants to go home (2) Ureteral anastomotic obstruction: Status: Acute Assessment and plan: has stent in place recently changed by IR at [facility] (3) CKD (chronic kidney disease): Status: Acute Assessment and plan: worse with recent episode dehydration knows to drink fluids (4) UTI (urinary tract infection) due to Enterococcus: Status: Acute Assessment and plan: resolved by second time I am seeing him as inpatient (5) Malignant neoplasm metastatic from bladder: Status: Chronic Assessment and plan: Worsening. In his lungs from his bladder. Losing weight. Weaker. Pain worse. Will need narcotic refill at discharge, or soon thereafter. No concerns of misuse. Subjective Subjective Patient reports: feels better, still having pain, pain is less and shortness of breath Interval history since last seen: losing weight despite having food prepared for him went down to [facility] IR to have his nephrostomy tube replaced since I saw him last hoping to go home soon--today would be good not with him today feels he has been kept longer than he needed to be expressed frustration with this decision by hospitalist team; doesn't feel he's been listened to he did talk directly to doctor to share his concerns Exam Narrative Exam Narrative: General: Patient appears comfortable, AAOX3, does not appear to be acutely ill despite fevers Neck: Supple, no LAD CV: Regular, nontachycardic, S1S2, No rubs, murmurs, or gallops. Pulmonary: Clear to auscultation bilaterally but mildly diminished diffusely, no crackles, wheezing, or rhonchi Abdomen: + Bowel Sounds, soft, nontender, nondistended. : Urostomy bag from ureteral ileal conduit draining clear urine. Stent replaced at IR. Skin: some abrasions and skin tears, pale overall Vascular: No lower extremity edema Psych: Normal mood and affect. Wants to go home. [place]ts[place]. Neuro: no confusion, clear about his desires Objective Objective Clinical Data: Abnormal lab results 03/01/19 03/01/19 Range/Units 06:42 06:42 RBC 2.63 L (4.50-6.00) m/cumm Hgb 7.4 L (13.5-17.5) g/dL Hct 24.4 L (40.0-50.0) % MCHC 30.3 L (32.0-36.0) g/dL RDW 14.3 H (11.8-14.1) % Plt Count 410 H (130-400) x1000/uL Absolute Lymphocytes 0.79 L (1.2-3.4) k/cumm Absolute Monocytes 0.99 H (0.11-0.7) k/cumm Sodium 135 L (136-145) mmol/L BUN 34 H (7-18) mg/dL Creatinine 3.73 H* (0.70-1.30) mg/dL Calcium 8.3 L (8.5-10.1) mg/dL Vital Signs Temperature 100.9 F H 03/01/19 18:58 Temperature Source Tympanic 03/01/19 18:35 Pulse 63 03/01/19 18:35 Pulse Rhythm Regular 03/01/19 19:34 Pulse 100 H 02/20/19 22:20 Respiratory Rate 18 03/01/19 18:35 Respiratory Effort Non-Labored 03/01/19 19:34 Respiratory Depth Normal 03/01/19 19:34 Respiratory Pattern Normal 03/01/19 19:34 Blood Pressure 157/91 H 03/01/19 18:35 Blood Pressure Mean 77 02/20/19 22:15 Blood Pressure Position Sitting 02/20/19 20:10 Pulse Oximetry 99 03/01/19 18:35 Oxygen Delivery Method Nasal Cannula 03/01/19 18:35 Oxygen Flow Rate 2 03/01/19 18:35 Pain Level 0 03/01/19 18:35 Comment 03/01/19 12:00 Intake & Output 02/28/19 03/01/19 03/01/19 23:59 11:59 23:59 Intake Total 320 / 1320 510 / 630 120 / 630 Output Total 1300 / 0 1200 / 1200 Balance -980 / -730 -690 / -570 120 / -570 Weight 124 lb 8.979 oz Intake: IV 70 / 1070 60 / 60 Oral 250 / 250 450 / 570 120 / 570 Output: Urine 1300 / 2000 1200 / 1200 Other: Urine Color Yellow Yellow Urine Appearance Clear Clear Clear Mucous Threads Mucous Threads Laboratory Results WBC 8.27 k/cumm (4.4-10.8) 03/01/19 06:42 RBC 2.63 m/cumm (4.50-6.00) L 03/01/19 06:42 Hgb 7.4 g/dL (13.5-17.5) L 03/01/19 06:42 Hct 24.4 % (40.0-50.0) L 03/01/19 06:42 MCV 92.8 fL (80-95) 03/01/19 06:42 MCH 28.1 pg (27.0-33.0) 03/01/19 06:42 MCHC 30.3 g/dL (32.0-36.0) L 03/01/19 06:42 RDW 14.3 % (11.8-14.1) H 03/01/19 06:42 Plt Count 410 x1000/uL (130-400) H 03/01/19 06:42 MPV 10.0 fL (8.0-11.0) 03/01/19 06:42 Immature Gran % 0.2 03/01/19 06:42 Neutrophils % 74.5 03/01/19 06:42 Band Neutrophils % 0.0 % 02/20/19 20:28 Lymphocytes % 9.6 03/01/19 06:42 Atypical Lymphs % 0 02/20/19 20:28 Monocytes % 12.0 03/01/19 06:42 Eosinophils % 3.5 03/01/19 06:42 Basophils % 0.2 03/01/19 06:42 Absolute Neutrophils 6.16 k/cumm (1.2-6.7) 03/01/19 06:42 Absolute Lymphocytes 0.79 k/cumm (1.2-3.4) L 03/01/19 06:42 Absolute Monocytes 0.99 k/cumm (0.11-0.7) H 03/01/19 06:42 Absolute Eosinophils 0.29 k/cumm (0.0-0.7) 03/01/19 06:42 Absolute Basophils 0.02 k/cumm (0.0-0.2) 03/01/19 06:42 Differential Comment Agrees w/ instrument 02/28/19 06:55 RBC Morphology See below 02/28/19 06:55 Polychromasia Present 02/28/19 06:55 Hypochromasia 3+ 02/28/19 06:55 Poikilocytosis 3+ 02/28/19 06:55 Basophilic Stippling Present 02/20/19 20:28 Ovalocytes 2+ 02/25/19 02:11 Sodium 135 mmol/L (136-145) L 03/01/19 06:42 Potassium 3.9 mmol/L (3.5-5.1) 03/01/19 06:42 Chloride 103 mmol/L (98-107) 03/01/19 06:42 Carbon Dioxide 24.2 mmol/L (21.0-32.0) 03/01/19 06:42 Anion Gap 7.8 mmol/L (3-11) 03/01/19 06:42 BUN 34 mg/dL (7-18) H 03/01/19 06:42 Creatinine 3.73 mg/dL (0.70-1.30) H* 03/01/19 06:42 Estimated GFR/1.73 m2 16.52 (mL/min/1.73m2) 03/01/19 06:42 Glucose 89 mg/dL (70-100) 03/01/19 06:42 Lactate 0.8 mmol/L (0.6-1.4) 02/25/19 02:11 Calcium 8.3 mg/dL (8.5-10.1) L 03/01/19 06:42 Magnesium 1.8 mg/dL (1.8-2.4) 03/01/19 06:42 Total Bilirubin 0.4 mg/dL (0.2-1.0) 02/21/19 07:03 AST 6 U/L (15-37) L 02/21/19 07:03 ALT < 6 U/L (16-63) L 02/21/19 07:03 Alkaline Phosphatase 171 U/L (46-116) H 02/21/19 07:03 Troponin I < 0.05 ng/mL (0.00-0.06) 02/20/19 20:28 Total Protein 6.1 g/dL (6.4-8.2) L 02/21/19 07:03 Albumin 2.1 g/dL (3.4-5.0) L 02/21/19 07:03 Lipase 52 U/L (73-393) L 02/20/19 20:28 Procalcitonin 1.2 ng/mL 02/25/19 02:11 Urine Color Yellow (Yellow) 02/25/19 08:00 Urine Clarity Clear (Clear) 02/25/19 08:00 Urine pH 6.0 (5-8) 02/25/19 08:00 Ur Specific [place] 1.010 (1.005-1.025) 02/25/19 08:00 Urine Protein 30 mg/dL (Negative) H 02/25/19 08:00 Urine Ketones Negative mg/dL (Negative) 02/25/19 08:00 Urine Blood Small (Negative) H 02/25/19 08:00 Urine Nitrite Negative (Negative) 02/25/19 08:00 Urine Bilirubin Negative (Negative) 02/25/19 08:00 Urine Urobilinogen 0.2 EU/dL (Up TO 0.2) 02/25/19 08:00 Ur Leukocyte Esterase Moderate (Negative) H 02/25/19 08:00 Urine RBC 3-5 (0-2) H 02/25/19 08:00 Urine WBC 20-50 HPF (0-5) 02/25/19 08:00 Ur Epithelial Cells Few HPF (Negative) 02/25/19 08:00 Urine Crystals Negative HPF (Negative) 02/25/19 08:00 Urine Bacteria Moderate HPF (Negative) 02/25/19 08:00 Urine Casts 0-2 coarse granular LPF (Negative) 02/25/19 08:00 Urine Mucus Trace (Negative) 02/25/19 08:00 Urine Other (Negative) 02/25/19 08:00 Ur Culture Indicated? C&s done as ordered 02/25/19 08:00 Urine Glucose Negative mg/dL (Negative) 02/25/19 08:00
[2019-03-01] MEDS: Pantoprazole 40 MG VIAL IVP (21:25)
[2019-03-01] MEDS: VANCOMYCIN 750 MG in Normal Saline 250 ML 166.667 MG IV (21:44)
[2019-03-02] VITALS (9 sets, daily range): BP systolic 115–141; BP diastolic 69–82; PULSE 82–130; RESP 18–94; TEMP 36.2–39.4; O2SAT 91–98
--- NOTE | 2019-03-02 04:34 | NUR.NOTE ---
Addendum entered by Tushar Tanner 03/02/19 06:41: Pt still not allowing heparin shot. Did take oxycodone. Original Note: Nursing Note:Went into room to administer scheduled 0400 heparin as well as obtain VS as pt is q4 hour vitals. Pt very upset he is being woken in the middle of the night for a shot, refused to receive it at this time as well as refused VS. Pt stated he would take the oxycodone and heparin together at 0630 instead, as the oxy is due for 0600. Spoke with clinical coordinator who referred to pharmacy and retimed the heparin to be scheduled for 0600. Will pass to oncoming shift to possibly change vital signs to Q4 while awake, which will allow him to sleep better.
[2019-03-02] MEDS: oxyCODONE 15 MG TAB PO ×3 (06:35→21:22)
[2019-03-02 07:31] LABS: Abs Immature Grans 0.02 k/cumm (0.0-0.09); Absolute Basophil Count 0.02 k/cumm (0.0-0.2); Absolute Eosinophil Count 0.33 k/cumm (0.0-0.7); Absolute Lymphocyte Count 0.49 k/cumm (1.2-3.4); Absolute Monocyte Count 0.94 k/cumm (0.11-0.7); Basophils % 0.2; Eosinophils % 2.7; HCT 28.3 % (40.0-50.0); HGB 8.7 g/dL (13.5-17.5); Immature Grans % 0.2; Mean Corp. HGB Concentration 30.7 g/dL (32.0-36.0); Mean Corpuscular Hemoglobin 28.4 pg (27.0-33.0); Mean Corpuscular Volume 92.5 fL (80-95); Mean Platelet Volume 9.2 fL (8.0-11.0); Monocytes % 7.6; Neutrophils % 85.3; Platelet Count 554 x1000/uL (130-400); RBC 3.06 m/cumm (4.50-6.00); RBC Distribution Width 14.4 % (11.8-14.1); White Blood Cell Count 12.32 k/cumm (4.4-10.8)
[2019-03-02 07:43] LABS: Anion Gap 12.8 mmol/L (3-11); BUN 37 mg/dL (7-18); CO2 23.2 mmol/L (21.0-32.0); Calcium 8.9 mg/dL (8.5-10.1); Chloride 103 mmol/L (98-107); Estimated GFR 15.11 (mL/min/1.73m2); Glucose 95 mg/dL (70-100); Magnesium 1.7 mg/dL (1.8-2.4); Potassium 4.4 mmol/L (3.5-5.1); Sodium 139 mmol/L (136-145)
[2019-03-02 07:47] LABS: CREATININE 4.03 mg/dL (0.70-1.30)
[2019-03-02 07:49] LABS: Absolute Neutrophil Count 10.51 k/cumm (1.2-6.7)
[2019-03-02] MEDS: Acetaminophen 325 MG TAB 650 MG PO (07:50)
[2019-03-02] MEDS: Normal Saline Flush 10 ML SYR IVP ×2 (08:21→21:23)
--- NOTE | 2019-03-02 10:12 | CMPROGNOTE_ITS ---
- If Service Date Differs Date of service: 03/01/19 Time of Service: 14:00 Care Management Progress Note S/O: Cornelio has an appointment scheduled at [facility] today for a stent reevaluation and replacement. He will transport down by ambulance and return by ambulance once the procedure is completed. CM will continue to follow. A: Cornelio is a 63 yo male admitted on 02/20/19 for metastatic bladder cancer, fever, UTI, and enteritis. P: Cornelio will be discharged home when medically cleared by provider. Resumption of Palliative Care when discharged. Cornelio will transport himself home in a private vehicle upon discharge. CM will continue to support patient and discharge planning needs.
[2019-03-02] MEDS: Milk of Magnesia 30 ML CUP PO (11:12)
[2019-03-02] MEDS: Polyethylene Glycol 3350 17 GM PACKET PO (11:12)
[2019-03-02] MEDS: Docusate Sodium 100 MG CAP PO (11:12)
--- NOTE | 2019-03-02 14:31 | PDOC.CMPRO ---
- If Service Date Differs Date of service: 03/02/19 Time of Service: 14:31 Care Management Progress Note S/O: Cornelio is sitting up in bed when CM meets with him today. He is pleasant and easily engages in conversation. He remains in acute status and continues to be febrile. CM will continue to follow. A: Cornelio is a 63 yo male admitted on for metastatic bladder cancer, fever, UTI, and enteritis. P: Cornelio will be discharged home when medically cleared by provider. Resumption of Palliative Care when discharged. Cornelio will transport himself home in a private vehicle upon discharge. CM will continue to support patient and discharge planning needs.
[2019-03-02] MEDS: Heparin 5,000 UNITS/ML VIAL 5000 UNITS SC ×2 (14:44→21:23)
--- NOTE | 2019-03-02 15:44 | PGE_ITS ---
Date of Service Date of service: 03/02/19 Time of Service: 15:45 Assessment and Plan Assessment and plan (1) Fever: Status: Acute Assessment and plan: Evidence of continued fevers, with negative blood cultures, negative imaging with a CT of the chest, abdomen, and pelvis, and negative repeat imaging with CXR and CT of the abdomen. Urinalysis remains positive, but obtained from a sample through the patient's ureteroileal conduit. Current fevers are through combination Vancomycin and Meropenem, and occuring after stent change. Blood cultures remain without growth, both from the original samples and from repeat cultures obtained on 02/25. - Patient is s/p stent change via IR at [facility] 03/01- this remains as the last potential source for infection. However, in the absence of any imaging findings of infection or hydro, question possible non-infectious cause as etiology for patient's continued fevers, especially since he continues to have fevers. Imaging shows evidence of significant liver mets, with Tumor Fevers high on differential. Discussed this again with Oncology fellow at [facility] - agrees that recurrent fevers despite stent change and broad-spectrum antibiotics may represent malignancy related fevers as opposed to infection. Recommendation is for another week of oral antibiotics, with rapid follow-up with outpatient Oncologist Dr. Palacio for initiation of Chemo. Discussed this case with the patient's urologist at [facility], ID at [facility], as well as oncology. - Discontinue Vancomycin and Meropenem, and initiate on oral Cefpodoxime. Of note, last Urine Culture with growth of vancomycin sensitive Enterococcus. (2) Hematemesis: Status: Acute Assessment and plan: Evidence of heme positive emesis, not grossly bloody or coffee-ground like. Appears to be tolerating PPI therapy. Hemoglobin is low but stable. Last Emesis was heme checked negative. (3) RUQ pain: Status: Acute Assessment and plan: Likely secondary to metastatic process, with imaging showing 'innumerable' mets to the liver. Also with RUQ Ureteral stent. Continue as needed oxycodone. Pain currently managed well and resolved. (4) Malignant neoplasm metastatic from bladder: Status: Chronic Assessment and plan: Receiving care at [facility] - Oncologist Dr. Daniel Palacio. Patient with evidence of extensive liver mets, as well as a spiculated LLL Lung mass with satelite lesions. Concern for lung primary with metastatic disease, but with prior biopsy of lung lesion this summer, with pathology positive for metastatic Urothelial Ca. Scheduled to initiate chemotherapy soon. (5) COPD (chronic obstructive pulmonary disease): Status: Chronic Assessment and plan: Appears to be quiescent. Monitor. (6) CKD (chronic kidney disease): Status: Acute Assessment and plan: CKD Stage 5, not on Hemodialysis. Continue to monitor creatinine, renally dose medications when necessary, and avoid nephrotoxins. (7) Anemia: Status: Chronic Assessment and plan: Monitor, and consider transfusion if appropriate. (8) DVT prophylaxis: Status: Acute Assessment and plan: Continue on chemical DVT Prophylaxis. Emesis is no longer Heme +. (9) Advance directive on file: Status: Acute Assessment and plan: DNR/DNI following discussion with Palliative Care. Subjective Subjective Interval history since last seen: 62 year old man with PMHx significant for metastatic bladder cancer on Chemotherapy, s/p Ureteroileal Conduit with a uret eral stent in place, admitted from [facility] Emergency Department on 02/20 with a diagnosis of UTI. Mr. Rosas has a past Medical History significant for metastatic Bladder Ca, with mets to the lung and liver, s/p prior nephrostomy tubes, right sided ureteral stent, and ureteroileal conduit on chemo and XRT. His other medical history includes CKD stage 5 (not on dialysis), previous hematuria with mora bsequent anemia, prior evidence of Proteus and Pseudomonas Urinary tract infections, COPD, and PHTN. He also had noted history of Chronic systolic CHF wih EF 35%, but on repeat ECHO in September of this year was noted to have a normalized LVEF. He presented to the ED with a progressive 1 week history of RUQ abdominal pain, fevers, and nausea with dry heaves. Initial work-up with CT imaging of the chest, abdomen, and pelvis was negative for an acute infection, but showed evidence ofa LLL Spiculated mass and innumerable hepatic lesions all suspicious for metastatic disease. Labwork was noteworthy for a leukocytosis with a WBC of 17, chronic appearing anemia, chronically elevated Creatinine, and a mild anion gap with low bicarb. Urinalysis showed Large LE and Pyuria with WBC >50, from sample obtained via patient's ureteroileal conduit. Mr. Rosas continued to be febrile through antibiotic therapy, and febrile with discontinuation. Initial Urine Culture not helpful with growth of Mixed Gram Positive and negative aron, and repeat culture with Enterococcus species (both obtained via ileal conduit). Repeat CXR showed no acute pathology, and Blood Cultures remain negative Repeat CT was also obtained and negative for any pathology, including [place]/Pyelo with right Ureteral stent. Patient continues to appear nontoxic, but is regularly spiking fevers in excess of 38-39?C, and with intermittent concurrent nausea and vomiting. He is now s/p stent replacement via IR at [facility]. No other events reported. Exam Narrative Exam Narrative: General: Patient appears comfortable, AAOX3, does not appear to be acutely ill despite fevers. Pallor noted. Neck: Supple CV: Regular, nontachycardic, S1S2, No rubs, murmurs, or gallops. Pulmonary: Clear to auscultation bilaterally but mildly diminished diffusely, no crackles, wheezing, or rhonchi Abdomen: + Bowel Sounds, soft, nontender, nondistended. Urostomy bag from ureteral ileal conduit visible. Vascular: No lower extremity edema Psych: Normal mood and affect. Objective Objective Clinical Data: Abnormal lab results 03/02/19 03/02/19 Range/Units 06:55 06:55 WBC 12.32 H D (4.4-10.8) k/cumm RBC 3.06 L (4.50-6.00) m/cumm Hgb 8.7 L (13.5-17.5) g/dL Hct 28.3 L (40.0-50.0) % MCHC 30.7 L (32.0-36.0) g/dL RDW 14.4 H (11.8-14.1) % Plt Count 554 H (130-400) x1000/uL Absolute Neutrophils 10.51 H (1.2-6.7) k/cumm Absolute Lymphocytes 0.49 L (1.2-3.4) k/cumm Absolute Monocytes 0.94 H (0.11-0.7) k/cumm Anion Gap 12.8 H (3-11) mmol/L BUN 37 H (7-18) mg/dL Creatinine 4.03 H* (0.70-1.30) mg/dL Magnesium 1.7 L (1.8-2.4) mg/dL Vital Signs Temperature 36.7 C 03/02/19 12:03 Temperature Source Tympanic 03/02/19 12:03 Pulse 93 H 03/02/19 12:03 Pulse Rhythm Regular 03/02/19 09:00 Pulse 100 H 02/20/19 22:20 Respiratory Rate 18 03/02/19 12:03 Respiratory Effort Non-Labored 03/02/19 09:00 Respiratory Depth Normal 03/02/19 09:00 Respiratory Pattern Normal 03/02/19 09:00 Blood Pressure 117/78 03/02/19 12:03 Blood Pressure Mean 77 02/20/19 22:15 Blood Pressure Position Sitting 02/20/19 20:10 Pulse Oximetry 97 03/02/19 12:03 Oxygen Delivery Method Room Air 03/02/19 12:03 Oxygen Flow Rate 0 03/02/19 12:03 Pain Level 3 03/02/19 12:03 Comment 03/02/19 07:30 Intake & Output 03/01/19 03/02/19 03/02/19 23:59 11:59 23:59 Intake Total 120 / 630 710 / 710 Output Total 400 / 1600 700 / 1125 425 / 1125 Balance -280 / -970 10 / -415 -425 / -415 Weight 56.3 kg Intake: IV 350 / 350 Oral 120 / 570 360 / 360 Output: Urine 400 / 1600 700 / 1125 425 / 1125 Other: Urine Color Yellow Yellow Yellow Urine Appearance Clear Clear Urine Odor Normal Voiding Methods Urinal Laboratory Results WBC 12.32 k/cumm (4.4-10.8) H D 03/02/19 06:55 RBC 3.06 m/cumm (4.50-6.00) L 03/02/19 06:55 Hgb 8.7 g/dL (13.5-17.5) L 03/02/19 06:55 Hct 28.3 % (40.0-50.0) L 03/02/19 06:55 MCV 92.5 fL (80-95) 03/02/19 06:55 MCH 28.4 pg (27.0-33.0) 03/02/19 06:55 MCHC 30.7 g/dL (32.0-36.0) L 03/02/19 06:55 RDW 14.4 % (11.8-14.1) H 03/02/19 06:55 Plt Count 554 x1000/uL (130-400) H 03/02/19 06:55 MPV 9.2 fL (8.0-11.0) 03/02/19 06:55 Immature Gran % 0.2 03/02/19 06:55 Neutrophils % 85.3 03/02/19 06:55 Band Neutrophils % 0.0 % 02/20/19 20:28 Lymphocytes % 4.0 03/02/19 06:55 Atypical Lymphs % 0 02/20/19 20:28 Monocytes % 7.6 03/02/19 06:55 Eosinophils % 2.7 03/02/19 06:55 Basophils % 0.2 03/02/19 06:55 Absolute Neutrophils 10.51 k/cumm (1.2-6.7) H 03/02/19 06:55 Absolute Lymphocytes 0.49 k/cumm (1.2-3.4) L 03/02/19 06:55 Absolute Monocytes 0.94 k/cumm (0.11-0.7) H 03/02/19 06:55 Absolute Eosinophils 0.33 k/cumm (0.0-0.7) 03/02/19 06:55 Absolute Basophils 0.02 k/cumm (0.0-0.2) 03/02/19 06:55 Differential Comment Agrees w/ instrument 02/28/19 06:55 RBC Morphology See below 02/28/19 06:55 Polychromasia Present 02/28/19 06:55 Hypochromasia 3+ 02/28/19 06:55 Poikilocytosis 3+ 02/28/19 06:55 Basophilic Stippling Present 02/20/19 20:28 Ovalocytes 2+ 02/25/19 02:11 Sodium 139 mmol/L (136-145) 03/02/19 06:55 Potassium 4.4 mmol/L (3.5-5.1) 03/02/19 06:55 Chloride 103 mmol/L (98-107) 03/02/19 06:55 Carbon Dioxide 23.2 mmol/L (21.0-32.0) 03/02/19 06:55 Anion Gap 12.8 mmol/L (3-11) H 03/02/19 06:55 BUN 37 mg/dL (7-18) H 03/02/19 06:55 Creatinine 4.03 mg/dL (0.70-1.30) H* 03/02/19 06:55 Estimated GFR/1.73 m2 15.11 (mL/min/1.73m2) 03/02/19 06:55 Glucose 95 mg/dL (70-100) 03/02/19 06:55 Lactate 0.8 mmol/L (0.6-1.4) 02/25/19 02:11 Calcium 8.9 mg/dL (8.5-10.1) 03/02/19 06:55 Magnesium 1.7 mg/dL (1.8-2.4) L 03/02/19 06:55 Total Bilirubin 0.4 mg/dL (0.2-1.0) 02/21/19 07:03 AST 6 U/L (15-37) L 02/21/19 07:03 ALT < 6 U/L (16-63) L 02/21/19 07:03 Alkaline Phosphatase 171 U/L (46-116) H 02/21/19 07:03 Troponin I < 0.05 ng/mL (0.00-0.06) 02/20/19 20:28 Total Protein 6.1 g/dL (6.4-8.2) L 02/21/19 07:03 Albumin 2.1 g/dL (3.4-5.0) L 02/21/19 07:03 Lipase 52 U/L (73-393) L 02/20/19 20:28 Procalcitonin 1.2 ng/mL 02/25/19 02:11 Urine Color Yellow (Yellow) 02/25/19 08:00 Urine Clarity Clear (Clear) 02/25/19 08:00 Urine pH 6.0 (5-8) 02/25/19 08:00 Ur Specific [place] 1.010 (1.005-1.025) 02/25/19 08:00 Urine Protein 30 mg/dL (Negative) H 02/25/19 08:00 Urine Ketones Negative mg/dL (Negative) 02/25/19 08:00 Urine Blood Small (Negative) H 02/25/19 08:00 Urine Nitrite Negative (Negative) 02/25/19 08:00 Urine Bilirubin Negative (Negative) 02/25/19 08:00 Urine Urobilinogen 0.2 EU/dL (Up TO 0.2) 02/25/19 08:00 Ur Leukocyte Esterase Moderate (Negative) H 02/25/19 08:00 Urine RBC 3-5 (0-2) H 02/25/19 08:00 Urine WBC 20-50 HPF (0-5) 02/25/19 08:00 Ur Epithelial Cells Few HPF (Negative) 02/25/19 08:00 Urine Crystals Negative HPF (Negative) 02/25/19 08:00 Urine Bacteria Moderate HPF (Negative) 02/25/19 08:00 Urine Casts 0-2 coarse granular LPF (Negative) 02/25/19 08:00 Urine Mucus Trace (Negative) 02/25/19 08:00 Urine Other (Negative) 02/25/19 08:00 Ur Culture Indicated? C&s done as ordered 02/25/19 08:00 Urine Glucose Negative mg/dL (Negative) 02/25/19 08:00
[2019-03-02] MEDS: Cefpodoxime 200 MG TAB PO (17:37)
[2019-03-02] MEDS: Atorvastatin 40 MG TAB 80 MG PO (20:00)
[2019-03-02] MEDS: Pantoprazole 40 MG VIAL IVP (21:23)
[2019-03-03 03:16] VITALS: BP 115/64; PULSE 90; RESP 16; TEMP 37.8; O2SAT 94
[2019-03-03] MEDS: Heparin 5,000 UNITS/ML VIAL 5000 UNITS SC (06:58)
[2019-03-03] MEDS: oxyCODONE 15 MG TAB PO (06:59)
[2019-03-03] MEDS: Cefpodoxime 200 MG TAB PO (06:59)
[2019-03-03 07:24] LABS: Abs Immature Grans 0.02 k/cumm (0.0-0.09); Absolute Basophil Count 0.03 k/cumm (0.0-0.2); Absolute Eosinophil Count 0.19 k/cumm (0.0-0.7); Absolute Lymphocyte Count 0.66 k/cumm (1.2-3.4); Absolute Monocyte Count 1.06 k/cumm (0.11-0.7); Absolute Neutrophil Count 6.76 k/cumm (1.2-6.7); Basophils % 0.3; Eosinophils % 2.2; HCT 23.8 % (40.0-50.0); HGB 7.4 g/dL (13.5-17.5); Immature Grans % 0.2; Lymphocytes % 7.6; Mean Corp. HGB Concentration 31.1 g/dL (32.0-36.0); Mean Corpuscular Hemoglobin 28.8 pg (27.0-33.0); Mean Corpuscular Volume 92.6 fL (80-95); Mean Platelet Volume 9.6 fL (8.0-11.0); Monocytes % 12.2; Neutrophils % 77.5; Platelet Count 502 x1000/uL (130-400); RBC 2.57 m/cumm (4.50-6.00); RBC Distribution Width 14.4 % (11.8-14.1); White Blood Cell Count 8.72 k/cumm (4.4-10.8)
[2019-03-03 07:53] LABS: Anion Gap 9.5 mmol/L (3-11); BUN 43 mg/dL (7-18); CO2 24.5 mmol/L (21.0-32.0); Calcium 8.4 mg/dL (8.5-10.1); Chloride 105 mmol/L (98-107); Estimated GFR 15.42 (mL/min/1.73m2); Glucose 98 mg/dL (70-100); Potassium 4.4 mmol/L (3.5-5.1); Sodium 139 mmol/L (136-145)
[2019-03-03 07:57] LABS: CREATININE 3.96 mg/dL (0.70-1.30)
[2019-03-03 08:15] VITALS: BP 117/76; PULSE 95; RESP 18; TEMP 36.8; O2SAT 95
--- NOTE | 2019-03-03 10:51 | W.PM.DS.N ---
Date of service: 03/03/19 Time of Service: 10:52 DS: Diagnosis Discharge Diagnosis (1) Fever: Status: Acute (2) Hematemesis: Status: Acute (3) RUQ pain: Status: Acute (4) Malignant neoplasm metastatic from bladder: Status: Chronic (5) COPD (chronic obstructive pulmonary disease): Status: Chronic (6) CKD (chronic kidney disease): Status: Acute (7) Anemia: Status: Chronic Discharge Plan Disposition Patient Disposition: HOME Condition: Stable Discharge Details Chief Complaint: Abd Prob Clinical Impression: Enteritis Reason For Visit: METASTATIC BLADDER CA,FEVER,UTI,ENTERITIS Admit Date/Time: 02/20/19 22:12 Admit Provider: Francois Zepeda Attending Provider: Francois Zepeda Primary Care Provider: Florence Johnson ED Provider: Hernando Rodgers Hospital Course Hospital Course: CC: Fevers HPI: 62 year old man with PMHx significant for metastatic bladder cancer on Chemotherapy, s/p Ureteroileal Conduit with a ureteral stent in place, admitted from [facility] Emergency Department on 02/20 with a diagnosis of UTI. Mr. Rosas has a past Medical History significant for metastatic Bladder Ca, with mets to the lung and liver, s/p prior nephrostomy tubes, right sided ureteral stent, and ureteroileal conduit. His other medical history includes CKD stage 5 (not on dialysis), anemia, prior evidence of Proteus and Pseudomonas Urinary tract infections, COPD, and PHTN. He also had noted history of CAD and CHF wih an LVEF of 35%, but on repeat ECHO in September of this year was noted to have normalized function. He presented to the ED with a progressive 1 week history of RUQ abdominal pain, fevers, and nausea with dry heaves. Initial work-up with CT imaging of the chest, abdomen, and pelvis was negative for an acute infection, but showed evidence of a LLL Spiculated mass and innumerable hepatic lesions all suspicious for metastatic disease. Labwork was noteworthy for a leukocytosis with a WBC of 17, chronic appearing anemia, chronically elevated Creatinine, and a mild anion gap with low bicarb. Urinalysis showed Large LE and Pyuria with WBC >50, from sample obtained via patient's ureteroileal conduit. Mr. Rosas continued to be febrile through antibiotic therapy, and febrile with discontinuation. Initial Urine Culture not helpful with growth of Mixed Gram Positive and negative aron, and repeat culture with Enterococcus species (both obtained via ileal conduit). Repeat CXR showed no acute pathology, and Blood Cultures remained negative Repeat CT was also obtained and negative for any pathology, including [place]/Pyelo with right Ureteral stent. Patient continues to appear nontoxic, but is regularly spiking fevers in excess of 38-39?C, and with intermittent concurrent nausea and vomiting. He is now s/p stent replacement via IR at [facility]. No other events reported. Hospital Course: (1) Fever: Evidence of continued fevers, with negative blood cultures, negative imaging with a CT of the chest, abdomen, and pelvis, and negative repeat imaging with CXR and CT of the abdomen. Urinalysis remains positive, but obtained from a sample through the patient's ureteroileal conduit. Current fevers are through combination Vancomycin and Meropenem, and occuring even after ureteral stent change. Blood cultures remain without growth, both from the original samples and from repeat cultures obtained on 02/25. - Patient is s/p stent change via IR at [facility] 03/01 - this remains as the last potential source for infection. However, in the absence of any imaging findings of infection or hydro, question possible non-infectious cause as etiology for patient's continued fevers, especially since he continues to have fevers. Imaging shows evidence of significant liver mets, with Tumor Fevers high on differential. Discussed this again with Oncology fellow at [facility] - agrees that recurrent fevers despite stent change and broad-spectrum antibiotics may represent malignancy related fevers as opposed to infection. Recommendation is for another week of oral antibiotics, with rapid follow-up with outpatient Oncologist Dr. Palacio for initiation of Chemo. Discussed this case with the patient's urologist at [facility], ID at [facility], as well as oncology. - Discontinued Vancomycin and Meropenem, and initiated on oral Cefpodoxime. Of note, last Urine Culture with growth of vancomycin sensitive Enterococcus. (2) Hematemesis: Evidence of heme positive emesis, not grossly bloody or coffee-ground like. Appears to be tolerating PPI therapy. Hemoglobin is low but stable. Last Emesis was heme checked negative. (3) RUQ pain: Likely secondary to metastatic process, with imaging showing 'innumerable' mets to the liver. Also with RUQ Ureteral stent. Continue as needed oxycodone. Pain currently managed well and resolved. (4) Malignant neoplasm metastatic from bladder: Receiving care at [facility] - Oncologist Dr. Daniel Palacio. Patient with evidence of extensive liver mets, as well as a spiculated LLL Lung mass with satelite lesions. Concern for lung primary with metastatic disease, but with prior biopsy of lung lesion this summer, with pathology positive for metastatic Urothelial Ca. Scheduled to initiate chemotherapy soon. (5) COPD (chronic obstructive pulmonary disease): Appears to be quiescent. Monitor. (6) CKD (chronic kidney disease): CKD Stage 5, not on Hemodialysis. Renal function appears stable. (7) Anemia: Monitor, and consider transfusion if appropriate. (8) DVT prophylaxis: Was maintained on chemical DVT Prophylaxis once Emesis was no longer Heme +. (9) Advance directive on file: DNR/DNI following discussion with Palliative Care. Home Meds and New Rx's Prescriptions: New cefpodoxime 200 mg Tablet 200 mg PO Q12H Qty: 12 RF: 0 Nicotrol 10 mg Cartridge 1 cartridge inhalation Q2H PRN PRNQty: 1 RF: 0 omeprazole 40 mg capsule,delayed release(DR/EC) 40 mg PO DAILY Qty: 30 RF: 0 ondansetron HCl [Zofran] 4 mg tablet 4 mg PO Q6H Qty: 60 RF: 0 Continued oxycodone 15 mg tablet, oral only 15 mg PO Q8H MDD 45 mg Qty: 90 RF: 0 atorvastatin [Lipitor] 80 MG tablet 80 mg PO DAILY RF: 0 carvedilol 12.5 mg Tablet 25 mg PO BID RF: 0 Discharge Instructions Stand Alone Forms: Nursing Discharge Form Referrals: Tracy Roberson MD [ [facility] STAFF PHYSICIAN] - Activity:: No strenuous activity Equipment/Supplies:: No Equipment Needed Diet:: As Tolerated Discharge Orders Discharge Orders: Discharge Order (Routine); Ordered 03/03/19 Ordered By: Black Guzman DS: Summary Status at Discharge Functional status at discharge: independent ambulation Overall status at discharge: patient is back to baseline Mental Status: mental status grossly normal Speech and Movement: speech and movement normal Mood: congruent mood Affect: normal affect Exam Psych Mental Status: mental status grossly normal Speech and Movement: speech and movement normal Mood: congruent mood Affect: normal affect DS: Data Vitals/I&O Vitals and I&O: Vital Signs Temperature 36.8 C 03/03/19 08:15 Temperature Source Tympanic 03/03/19 08:15 Pulse 95 H 03/03/19 08:15 Pulse Rhythm Regular 03/03/19 03:17 Pulse 100 H 02/20/19 22:20 Respiratory Rate 18 03/03/19 08:15 Respiratory Effort Non-Labored 03/03/19 03:17 Respiratory Depth Normal 03/03/19 03:17 Respiratory Pattern Normal 03/03/19 03:17 Blood Pressure 117/76 03/03/19 08:15 Blood Pressure Mean 77 02/20/19 22:15 Blood Pressure Position Sitting 02/20/19 20:10 Pulse Oximetry 95 03/03/19 08:15 Oxygen Delivery Method Room Air 03/03/19 08:15 Oxygen Flow Rate 0 03/03/19 08:15 Pain Level 5 03/03/19 08:15 Comment 03/03/19 03:16 Intake & Output 03/02/19 03/02/19 03/03/19 11:59 23:59 11:59 Intake Total 710 / 1000 290 / 1000 480 / 480 Output Total 700 / 1525 825 / 1525 50 / 50 Balance 10 / -525 -535 / -525 430 / 430 Weight 56.3 kg 56.4 kg Intake: IV 350 / 400 50 / 400 Oral 360 / 600 240 / 600 480 / 480 Output: Urine 700 / 1525 825 / 1525 Emesis 50 / 50 Other: Urine Color Yellow Yellow Urine Appearance Clear Clear Clear Stool Size Large Stool Characteristics Soft Formed Emesis Description Clear/Water Data Completed and Pending Completed studies during hospitalization [Text1]: Exam(s) 02/20/[address]:CT chest/abd/pel wo EXAM: CT CHEST/ABD/PEL WO CLINICAL HISTORY: Metastatic cancer, right upper quadrant pain. TECHNIQUE: Noncontrast COMPARISON: CT ABDOMEN AND PELVIS WO from 03/03/2018 FINDINGS: Chest CT: There are moderate to severe emphysematous changes, greater at the apices. There is a spiculated mass in the left lower lobe measuring 2 3 cm. A 5 millimeter nodule is seen in the left upper lobe. No adenopathy is seen. No pleural or pericardial effusions are seen. The aorta is normal in diameter. No infiltrates are seen. No compression fractures or destructive bony lesions are identified. Abdomen and pelvic CT: The liver now shows numerous low density masses consistent with metastases. The findings are new when compared with the previous exam. There is no biliary dilatation. Gallbladder is unremarkable. The pancreas, spleen and adrenals are unremarkable. A right ureteral stent is seen. The proximal pigtail is in the right renal pelvis. The distal portion of the stent extends into the urostomy bag. There is a small nonobstructing stone at the lower pole of the right kidney. The left kidney appears atrophic. The bladder is surgically absent. There is no evidence of bowel obstruction. There is mild fluid distention of small bowel. There is no evidence of abscess or free air. There is a large right hydrocele. No suspicious bony abnormalities are identified. IMPRESSION: A 2.3 centimeter spiculated mass in the left lower lobe suspicious for metastatic disease. Innumerable hepatic metastases. Right-sided ureteral stent without evidence of obstruction. Mildly distended small bowel without evidence of obstruction. --------- Exam(s) 02/22/2019 a US:US abdomen EXAM: US ABDOMEN CLINICAL HISTORY: RUQ pain, ?hepatic mets, ?cholecystitis. TECHNIQUE: Ultrasound performed using standard protocol. COMPARISON: US carotid from 10/03/2018 FINDINGS: The aorta and vena cava are unremarkable. The liver is enlarged measuring up to 19.4 cm. Portal vein is intact. There is no evidence of gallstones or biliary dilatation. Pancreas is normal. Multiple granulomata are identified in the spleen. Right kidney measures 10.7 cm, the left kidney measures 7.4 cm and is hypoplastic. There is mild prominence of the renal pelvis consistent with mild hydronephrosis. Note is made of multiple hepatic nodules, the largest in the right hepatic lobe measuring up to 4 x 4.7 x 4.2 cm. Color flow is identified. IMPRESSION: Further evaluation of this patient with a multiphasic CT examination is suggested to further assess the status of the liver. Exam(s) 02/25/2019 a RAD:XR chest 2V PA & lateral EXAM: XR CHEST 2V PA LATERAL INDICATION: Fever. COMPARISON: XR CHEST 2V PA LATERAL from 10/02/2018 TECHNIQUE: 2D digital imaging was performed. FINDINGS: The heart is not enlarged. There are changes of COPD and pulmonary scarring. No acute consolidation seen. No pleural effusion seen. IMPRESSION: No evidence of acute change. Pigtail catheter noted overlying the upper abdomen. --------- Exam(s) 02/26/[address]:CT abdomen & pelvis wo EXAM: CT ABDOMEN PELVIS WO CLINICAL HISTORY: Persistent Fever,. TECHNIQUE: COMPARISON: CT CHEST/ABD/PEL WO from 02/20/2019 FINDINGS: CT examination of the abdomen and pelvis was performed without contrast administration. Images obtained through the lung bases again show spiculated left lower lobe lung mass with satellite lesions. Predominant involvement of hepatic parenchyma with innumerable presumed metastases again noted. Spleen grossly unremarkable. Pancreas grossly unremarkable. No gross bowel obstruction. No free intraperitoneal air. Diffuse fat edema through the abdomen pelvis without significant degree of ascites. No gross urinary tract obstruction. Right right ureteral drainage catheter again noted in position. IMPRESSION: No gross interval change from CT of 02/20/2019 Labs on day of discharge: Labs from last 24 hours 03/03/19 03/03/19 06:53 06:53 WBC 8.72 RBC 2.57 L Hgb 7.4 L Hct 23.8 L MCV 92.6 MCH 28.8 MCHC 31.1 L RDW 14.4 H Plt Count 502 H MPV 9.6 Immature Gran % 0.2 Neutrophils % 77.5 Lymphocytes % 7.6 Monocytes % 12.2 Eosinophils % 2.2 Basophils % 0.3 Absolute Neutrophils 6.76 H Absolute Lymphocytes 0.66 L Absolute Monocytes 1.06 H Absolute Eosinophils 0.19 Absolute Basophils 0.03 Sodium 139 Potassium 4.4 Chloride 105 Carbon Dioxide 24.5 Anion Gap 9.5 BUN 43 H Creatinine 3.96 H* Estimated GFR/1.73 m2 15.42 Glucose 98 Calcium 8.4 L Magnesium 2.0 Blood Culture from 02/25/2019 Blood Culture ( Age => 10 Yrs) Final 03/02/19-442 NO GROWTH 120 HOURS Blood Culture from 02/20/2019 Blood Culture ( Age => 10 Yrs) Final 02/25/19-2321 NO GROWTH 120 HOURS [facility] Medical History Acute sinus infection (Acute) Anemia (Chronic) ASCVD (arteriosclerotic cardiovascular disease) (Acute) Bladder cancer (Chronic) Bladder mass (Acute) Cardiomyopathy (Acute) CHF (congestive heart failure) (Chronic) Chronic kidney disease, stage 5 (Chronic) 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) Cigarette smoker one half pack a day or less (Chronic) CKD (chronic kidney disease) (Acute) COPD (chronic obstructive pulmonary disease) (Chronic) Emphysema, unspecified (Acute) Family dysfunction (Acute) Left lower lobe pulmonary nodule (Chronic) Lung mass (Chronic) Malignant neoplasm metastatic from bladder (Chronic) Osteoarthritis (Chronic) Palliative care patient (Chronic) Symptomatic anemia (Acute) Unintentional weight loss (Acute) Uremia, acute (Acute) Ureteral anastomotic obstruction (Acute) Surgical History H/O prostatectomy (Chronic) H/O total cystectomy (Chronic) History of ankle surgery (Acute) left ankle repair, 3 pins History of biopsy of bladder (Acute) Previous back surgery (Acute) discetomy to four discs (lumbar spine) Family History Mother , of breast cancer aged 77 No problems noted. Father , of kidney disease, CHF aged 77 s/p nephrectomy for uncertain reason, ? cancer No problems noted. Brother , of bladder and ? colon cancer aged 45 No problems noted. Sister Diabetes Son Age: 7 No problems noted. Son Age: 38 No problems noted. Son Age: 42 No problems noted. Son Age: 40 No problems noted. Social History Smoking/Tobacco Use Status: Current every day Tobacco Type: cigarettes Years smoked: 50 Tobacco: How many years used: 50 Quit status: considering quitting Counseling given: support program and counseling >3 minutes Alcohol Intake: former Drug use: Occasionally Substance use type: marijuana Counseling given: No Adopted: No Caregiver/Support person: Yes Foster care: No Household members: spouse and other Details: living with - 8 years Housing: house Number of Children: 5 number of grandchildren: 11 Communication Needs: Hard of Hearing and Corrective Lenses Education Level: high school Do you need help understanding health information?: Always 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, [employer], 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, can't Pets and animals: Yes Sexually active: No What is your relationship status?: How often do you talk on the phone with friends or family?: three or more times per week How often do you get together with friends or relatives?: three or more times per week Panel score (0-1 are the most socially isolated patients): 1 What type of physical activity do you participate in: none Duration: 15-30 minutes/day Special josé antonio needs: No Agree to transfusion: Yes Seatbelt use: always Drive intox or ride w/intox truck driver rubbish 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 Cornelio worried about who will care for him. Thinks son Vivek will. Cornelio does all the shopping and cooking for the household. often mean to Cornelio's young son; son still loves her.
[2019-03-03 12:12] VITALS: BP 114/69; PULSE 105; RESP 18; TEMP 36.7
--- NOTE | 2019-03-03 13:23 | PDOC.CMDIS ---
- If Service Date Differs Date of service: 03/03/19 Time of Service: 13:23 LACE Index Scoring Tool - Questions: Length of Stay (in days): 7 - 13 Acuity (Admit via E.D.?): Yes Comorbidities: Any Tumor, Liver or Renal Disease E.D. Visits: 2 - Answers: Total Score: 15 Risk of Readmission: High Risk Care Management Discharge Reason for Hospitalization: Metastatic bladder cancer, fever, UTI, and enteritis. Discharge Plan: Cornelio is being discharged home he declines home health services at this time. He will continue with Palliative care. His appointment at [facility] is March 21 and his Pet Scan is scheduled for March 17. CM sent in a PA for nicotrol inhaler to Medicaid. Cornelio will transport himself home at time of discharge. Patient/Family Education Needs: CM provided education related to discharge plan, limitations and follow up plan of care including ask me three and self management. Cornelio is struggling with his son and coping with his illness. He has been working with the teachers at school. CM discussed other options including big brother programs, palliative care support, and school supports including guidence and IEP programs.
== END 2019-03-03 12:22 | disposition home or self-care (01) | DRG 687 ==
LOC: ER 22:15 → MS 22:43
PROVIDERS: Internal Medicine; Nurse Practitioner; Admitting Provider Family Medicine; Emergency Provider Emergency Medicine; PCP Family Medicine; Visit Provider Internal Medicine
DX: C67.9 Malignant neoplasm of bladder, unspecified (principal); N39.0 Urinary tract infection, site not specified; C78.7 Secondary malignant neoplasm of liver and intrahepatic bile duct; C78.00 Secondary malignant neoplasm of unspecified lung; N18.5 Chronic kidney disease, stage 5; K92.0 Hematemesis; R64 Cachexia; Z68.1 Body mass index [BMI] 19.9 or less, adult; R50.9 Fever, unspecified; R50.81 Fever presenting with conditions classified elsewhere; R10.11 Right upper quadrant pain; B95.2 Enterococcus as the cause of diseases classified elsewhere; Z93.6 Other artificial openings of urinary tract status; N99.89 Other postprocedural complications and disorders of genitourinary system; I27.20 Pulmonary hypertension, unspecified; Z96.0 Presence of urogenital implants; D50.9 Iron deficiency anemia, unspecified; R91.1 Solitary pulmonary nodule; J44.9 Chronic obstructive pulmonary disease, unspecified; Z87.440 Personal history of urinary (tract) infections; L29.8 Other pruritus; T50.905A Adverse effect of unspecified drugs, medicaments and biological substances, initial encounter; I25.10 Atherosclerotic heart disease of native coronary artery without angina pectoris; Z66 Do not resuscitate; Z79.899 Other long term (current) drug therapy; F17.210 Nicotine dependence, cigarettes, uncomplicated; Z51.5 Encounter for palliative care; Z71.3 Dietary counseling and surveillance
CPT/HCPCS: 36410; 36415; 50387; 71250; 80048; 80053; 83690; 84145; 85027; 87040; 87077; 96361; 96365; 96375; 99221; 99223; 99232; 99233; 99239; 99254; 99285; 71046; 74176; 76700; 81003; 81015; 83605; 83735; 84484; 85014; 85018; 85025; 87086; 87186; 99284; A0425; A0428; J0696; J1644; J1956; J2405; J2765; J3475

== ENCOUNTER 2019-03-20 13:28 | Outpatient (CLI) | payer MEDICAID, SELFPAY ==
[2019-03-20 14:09] LABS: Abs Immature Grans 0.12 k/cumm (0.0-0.09); Absolute Basophil Count 0.06 k/cumm (0.0-0.2); Absolute Lymphocyte Count 0.55 k/cumm (1.2-3.4); Basophils % 0.2; Eosinophils % 1.2; HCT 25.2 % (40.0-50.0); HGB 7.7 g/dL (13.5-17.5); Immature Grans % 0.4; Mean Corp. HGB Concentration 30.6 g/dL (32.0-36.0); Mean Corpuscular Hemoglobin 28.1 pg (27.0-33.0); Mean Platelet Volume 9.5 fL (8.0-11.0); Monocytes % 8.3; Neutrophils % 87.9; RBC 2.74 m/cumm (4.50-6.00); RBC Distribution Width 15.2 % (11.8-14.1)
[2019-03-20 14:13] LABS: Absolute Eosinophil Count 0.33 k/cumm (0.0-0.7); Absolute Neutrophil Count 24.35 k/cumm (1.2-6.7)
[2019-03-20 14:31] LABS: Platelet Count 687 x1000/uL (130-400)
[2019-03-20 14:32] LABS: Diff Comment Agrees w/ Instrument; Hypochromasia 3+
[2019-03-20 14:33] LABS: Poikilocytes 3+
[2019-03-20 15:04] LABS: ALT 15 U/L (16-63); AST 13 U/L (15-37); Albumin 2.2 g/dL (3.4-5.0); Alkaline Phosphatase 505 U/L (46-116); Anion Gap 15.1 mmol/L (3-11); BUN 39 mg/dL (7-18); Bilirubin, Total 0.7 mg/dL (0.2-1.0); CO2 17.9 mmol/L (21.0-32.0); CREATININE 3.45 mg/dL (0.70-1.30); Calcium 8.7 mg/dL (8.5-10.1); Chloride 107 mmol/L (98-107); Estimated GFR 18.08 (mL/min/1.73m2); FREE T4 1.18 ng/dL (0.76-1.46); Glucose 103 mg/dL (70-100); Potassium 5.1 mmol/L (3.5-5.1); Sodium 140 mmol/L (136-145); TSH 1.56 uIU/mL (0.36-3.74)
== END 2019-03-20 13:48 ==
PROVIDERS: PCP Family Medicine; Visit Provider Internal Medicine
DX: C79.10 Secondary malignant neoplasm of unspecified urinary organs (principal); Z79.899 Other long term (current) drug therapy
CPT/HCPCS: 36415; 80053; 84439; 84443; 85025

== ENCOUNTER 2019-03-22 02:23 | Outpatient (RCR) | payer MEDICAID, SELFPAY ==
[2019-03-22] VITALS (11 sets, daily range): BP systolic 102–134; BP diastolic 67–86; PULSE 100–124; RESP 17–19; TEMP 36.6–37.5; O2SAT 97–100
[2019-03-22 09:46] LABS: Absolute Basophil Count 0.06 k/cumm (0.0-0.2); Absolute Eosinophil Count 0.38 k/cumm (0.0-0.7); Absolute Lymphocyte Count 0.63 k/cumm (1.2-3.4); Basophils % 0.3; Eosinophils % 1.9; HCT 25.6 % (40.0-50.0); HGB 7.6 g/dL (13.5-17.5); Immature Grans % 0.3; Lymphocytes % 3.1; Mean Corp. HGB Concentration 29.7 g/dL (32.0-36.0); Mean Corpuscular Hemoglobin 27.2 pg (27.0-33.0); Mean Corpuscular Volume 91.8 fL (80-95); Mean Platelet Volume 9.3 fL (8.0-11.0); Neutrophils % 86.4; RBC 2.79 m/cumm (4.50-6.00); RBC Distribution Width 15.5 % (11.8-14.1); White Blood Cell Count 20.25 k/cumm (4.4-10.8)
[2019-03-22 10:05] LABS: Absolute Monocyte Count 1.62 k/cumm (0.11-0.7)
[2019-03-22 10:13] LABS: Platelet Count 725 x1000/uL (130-400)
[2019-03-22 10:14] LABS: Acanthocytes 1+; Anisocytosis 2+; Burr Cells (echinocyte) 2+; Diff Comment Agrees w/ Instrument; Hypochromasia 1+; Ovalocytes 3+; Schistocytes 1+
[2019-03-22 10:24] LABS: ALT 13 U/L (16-63); AST 12 U/L (15-37); Albumin 2.2 g/dL (3.4-5.0); Alkaline Phosphatase 451 U/L (46-116); Anion Gap 13.2 mmol/L (3-11); BUN 43 mg/dL (7-18); Bilirubin, Total 0.6 mg/dL (0.2-1.0); CO2 18.8 mmol/L (21.0-32.0); CREATININE 3.43 mg/dL (0.70-1.30); Calcium 9.1 mg/dL (8.5-10.1); Chloride 106 mmol/L (98-107); FREE T4 1.14 ng/dL (0.76-1.46); Glucose 114 mg/dL (70-100); Potassium 4.9 mmol/L (3.5-5.1); Sodium 138 mmol/L (136-145); TSH 2.33 uIU/mL (0.36-3.74); Total Protein 7.6 g/dL (6.4-8.2)
== END 2019-03-28 23:59 | disposition home or self-care (01) ==
LOC: INF 02:23
PROVIDERS: PCP Family Medicine; Visit Provider Internal Medicine
DX: C79.10 Secondary malignant neoplasm of unspecified urinary organs (principal); C78.7 Secondary malignant neoplasm of liver and intrahepatic bile duct
CPT/HCPCS: 36415; 36430; 80053; 86850; 86900; 86901; 86920; 96365; 96366; 84439; 84443; 85025; P9016

== ENCOUNTER 2019-03-28 12:29 | Emergency (ER) | payer MEDICAID, SELFPAY ==
[2019-03-28 12:51] VITALS: BP 90/55; PULSE 81; RESP 16; TEMP 36.5; O2SAT 98
--- NOTE | 2019-03-28 13:02 | ED.GENADUL_ITS ---
Discharge Plan Disposition Patient Disposition: Condition: Stable Discharge Details Chief Complaint: Fever Clinical Impression: Cardiopulmonary arrest, History of bladder cancer, Lung metastasis, Liver metastases Primary Care Provider: Francois Zepeda ED Provider: Debora Humphreys Discharge Data Date/Time: 03/28/19 15:50 Discharge Date/Time-TO BE ENTERED AT DEPARTURE: 03/28/19 15:50 Discharge Physician: Debora Humphreys Medical Decision Making <Debora Humphreys, - Last Filed: 03/30/19 09:59> 1255 -- 63-year-old male with a history of metastatic bladder cancer to lung and liver who is one-week status post Keytruda and 6 days status post 2 unit PRBC blood transfusion who presents with cough with green sputum, shortness of breath, sore throat and chest and abdominal pain that occur with coughing in addition to fatigue, dizziness, generalized weakness and decreased appetite for the past few days. BP hypotensive 90/55. Remainder vitals within normal limits. He is afebrile. He appears chronically ill. His mucous membranes are dry. His posterior oropharynx appears raw and dry but no evidence of thrush, exudates or peritonsillar abscess. Diminished breath sounds throughout with scattered wheezing. Abdomen soft. He has a urostomy bag with cloudy dark yellow urine. Differential diagnosis includes influenza, pharyngitis, pneumonia, CHF, dehydra tion, electrolyte abnormality. Presentation does not appear consistent with PE but unable to obtain CT chest due to chronic kidney disease. Will place an IV, bolus IV fluids, screening labs, rapid strep, influenza, urine and blood cultures, lactate as well as chest x-ray. Will also give DuoNeb and Solu- Medrol. Dr. Roberosn also evaluated patient at bedside as she knows him well to palliative care. I suspect patient will need to be admitted for at least hydration and observation. She will see him tomorrow in the hospital. Case also discussed with hospitalist who was notified of patient's arrival and likely plan for admission. [id number] --nurse called me to room and states that patient is not breathing and does not have a pulse. She stated that patient had just been yelling at her that he did not want another IV and she had placed the nonrebreather mask on to give him a neb treatment when she noticed he suddenly seemed to stop breathing. Patient was noted to have 1 agonal breath upon my arrival to room and then no further spontaneous breaths noted. Heart rate 0 on the monitor. No palpable pulse. Discussed with patient's son in room who states that pt is DNR/DNI. Confirmed this with Dr. Roberson who stated that pt changed his code status to DNR/DNI last month. Bedside ultrasound confirms no cardiac wall motion activity. Time of 1443. Medical Records Medical records reviewed: Yes I reviewed the patient's medical records. ECG Data Attestation: I personally reviewed and interpreted this ECG (s) as follows: Interpretation: Rate of 80, sinus, [address] depression noted in 2, 3, aVF. Questionable [address] elevation noted in aVL. MO 152. QTc 436. QRS 82. HPI <Debora Humphreys DO - Last Filed: 03/30/19 09:59> General Mode of arrival: ambulatory . Date/Time Provider Initiated Documentation: 03/28/19 12:33 . Limitations to Documentation: no limitations . Information obtained by: patient . HPI Narrative: Pt is a 63yo M w/ a h/o bladder cancer with metastasis to lung and liver who presents to the ED w/ a c/o generalized weakness, fatigue, dizziness as well as cough with green sputum, rib pain and shortness of breath for the past several days. He received his first treatment of Keytruda 1 week ago as well as 2 units of PRBC blood transfusion 6 days ago. Patient states he had a T-max of 105. He also admits to diminished appetite. He also admits to frequent episodes of vomiting which has been clear and food and diarrhea which has been watery and brown. Denies any hematemesis or hematochezia. He admits to abdominal pain that occurs with coughing but otherwise denies any abdominal pain at present. Related Data Allergies Allergy/AdvReac Type Severity Reaction Status Date / Time Sulfa (Sulfonamide Allergy Intermediate deathly Verified 03/28/19 12:56 Antibiotics) sick and rash metoprolol AdvReac Intermediate Itching Verified 03/28/19 12:56 sodium bicarbonate AdvReac Intermediate stomach Verified 03/28/19 12:56 burning, vomitting General Stated Complaint: Fever [place]: 2 Review of Systems <Debora Humphreys DO - Last Filed: 03/30/19 09:59> All systems reviewed & are unremarkable except as noted in HPI and below Constitutional Constitutional: Reports as per HPI, Reports chills, Reports fatigue, Reports fever(s) and Reports malaise Eyes Eyes: Denies blurry vision ENT Ears, Nose, Mouth, and Throat: Reports dizziness, Reports sore throat and Denies throat swelling Cardiovascular Cardiovascular: Reports chest pain and Reports dyspnea Respiratory Respiratory: Reports cough and Reports dyspnea Gastrointestinal Gastrointestinal: Denies abdominal pain, Reports diarrhea and Reports vomiting Genitourinary Genitourinary: Denies hematuria and Denies dysuria Musculoskeletal Musculoskeletal: Denies back pain and Denies numbness Integumentary/Breasts Skin/Breast: Denies lesions and Denies rash Neurologic Neurologic: Reports dizziness, Denies focal weakness and Denies numbness Endocrine Endocrine: Reports fatigue Allergic/Immunologic Allergic/Immunologic: Denies throat swelling PFSH <Debora Humphreys DO - Last Filed: 03/30/19 09:59> Medical History (Updated 03/28/19 @ 17:08 by Tracy Roberson MD) Acute sinus infection (Acute) Anemia (Chronic) ASCVD (arteriosclerotic cardiovascular disease) (Acute) Bladder cancer (Chronic) Bladder mass (Acute) Cardiomyopathy (Acute) CHF (congestive heart failure) (Chronic) Chronic kidney disease, stage 5 (Chronic) 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) Cigarette smoker one half pack a day or less (Chronic) CKD (chronic kidney disease) (Acute) COPD (chronic obstructive pulmonary disease) (Chronic) in emergency department (Acute) DNI (do not intubate) (Acute) DNR (do not resuscitate) (Acute) Emphysema, unspecified (Acute) Family dysfunction (Acute) Immunotherapy (Acute) Left lower lobe pulmonary nodule (Chronic) Lung mass (Chronic) Malignant neoplasm metastatic from bladder (Chronic) Multisystem organ failure (Acute) Osteoarthritis (Chronic) Palliative care patient (Chronic) POLST (Physician Orders for Life-Sustaining Treatment) (Acute) signed 02/28/19 Symptomatic anemia (Acute) Unintentional weight loss (Acute) Uremia, acute (Acute) Ureteral anastomotic obstruction (Acute) Surgical History H/O prostatectomy (Chronic) H/O total cystectomy (Chronic) History of ankle surgery (Acute) left ankle repair, 3 pins History of biopsy of bladder (Acute) Previous back surgery (Acute) discetomy to four discs (lumbar spine) Family History Mother , of breast cancer aged 77 No problems noted. Father , of kidney disease, CHF aged 77 s/p nephrectomy for uncertain reason, ? cancer No problems noted. Brother , of bladder and ? colon cancer aged 45 No problems noted. Sister Diabetes Son Age: 7 No problems noted. Son Age: 38 No problems noted. Son Age: 42 No problems noted. Son Age: 40 No problems noted. Social History Smoking/Tobacco Use Status: Current every day Tobacco Type: cigarettes Years smoked: 50 Tobacco: How many years used: 50 Quit status: considering quitting Counseling given: support program and counseling >3 minutes Alcohol Intake: former Drug use: Occasionally Substance use type: marijuana Counseling given: No Adopted: No Caregiver/Support person: Yes Foster care: No Household members: spouse and other Details: living with - 8 years Housing: house Number of Children: 5 number of grandchildren: 11 Communication Needs: Hard of Hearing and Corrective Lenses Education Level: high school Do you need help understanding health information?: Always 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, [employer], 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, 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 Pets and animals: Yes Sexually active: No What is your relationship status?: How often do you talk on the phone with friends or family?: three or more times per week How often do you get together with friends or relatives?: three or more times per week Panel score (0-1 are the most socially isolated patients): 1 What type of physical activity do you participate in: none Duration: 15-30 minutes/day Special josé antonio needs: No Agree to transfusion: Yes Seatbelt use: always Drive intox or ride w/intox dray 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 Cornelio worried about who will care for him. Thinks son Vivek will. Cornelio does all the shopping and cooking for the household. often mean to Cornelio's young son; son still loves her. Exam <Debora Humphreys DO - Last Filed: 03/30/19 09:59> Const General: cooperative, frail appearing and ill appearing chronically Nutritional Appearance: cachectic Orientation: alert, awake and oriented x3 HENMT Head: normal to inspection Ears: hearing grossly normal bilaterally, external ears normal, TM abnormal obstructed by cerumen bilaterally and unable to visualize TM bilaterally General nose exam: external nose normal Face and sinus: normal facial exam Mouth: mucous membranes dry Teeth and gingiva: dentition normal Throat: posterior oropharynx abnormal (Dry, areas of faint ulceration,) Eyes General: appearance normal, both eyes and all related structures Eyelids: eyelids normal Pupils: PERRL EOM: EOM intact bilaterally Neck Neck: normal visual inspection Lymphatic: no lymphadenopathy noted Chest Chest: normal inspection of the chest Resp Effort & Inspection: normal respiratory effort and able to speak in complete sentences Auscultation: diminished lung sounds bilaterally throughout Cardio Rate: regular rate Rhythm: regular rhythm GI Inspection: normal to inspection Palpation: soft, not firm, no guarding, no hepatosplenomegaly, no masses and nontender Auscultation: normal bowel sounds Back/Spine/Pelvis Back: no CVA tenderness Skin General skin exam: no rashes or lesions noted Neuro General: alert and awake Cognition: normal cognition Speech: speech normal Gait: normal gait Motor: muscle tone normal throughout Sensory Exam: no sensory deficits noted Extrem General: normal to inspection, full ROM, normal capillary refill and no edema Psych Appearance: grossly normal Mental Status: mental status grossly normal Speech and Movement: speech and movement normal Affect: normal affect Thought Process: normal Course <Debora Humphreys DO - Last Filed: 03/30/19 09:59> Vital Signs Vital signs: Vital Signs Temperature 97.7 F 03/28/19 12:51 Pulse 81 03/28/19 12:51 Respiratory Rate 16 03/28/19 12:51 Blood Pressure 90/55 L 03/28/19 12:51 Pulse Oximetry 98 03/28/19 12:51 Temperature 97.7 F 03/28/19 12:51 Temperature Source Skin 03/28/19 12:51 Pulse 81 03/28/19 12:51 Respiratory Rate 16 03/28/19 12:51 Respiratory Effort Non-Labored 03/28/19 12:51 Blood Pressure 90/55 L 03/28/19 12:51 Blood Pressure Position Supine 03/28/19 12:51 Pulse Oximetry 98 03/28/19 12:51 Oxygen Delivery Method Room Air 03/28/19 12:51 Oxygen Flow Rate 0 03/28/19 12:51 Pain Level 0 03/28/19 12:51
--- NOTE | 2019-03-28 13:14 | DI.RAD_ITS ---
EXAM: XR CHEST 2V PA AND LATERAL INDICATION: cough, SOB, r/o pneumonia. COMPARISON: XR CHEST 2V PA LATERAL from 10/02/2018 XR CHEST 2V PA LATERAL from 02/25/2019 TECHNIQUE: 2D digital imaging was performed. FINDINGS: Heart size and pulmonary vasculature are within normal limits. No focal consolidating infiltrates are seen. No pleural effusion or pneumothorax is identified. Degenerative changes are seen in the bones. IMPRESSION: No acute pulmonary process.
[2019-03-28] MEDS: Normal Saline 250 ML IV (13:20)
[2019-03-28 14:01] LABS: Lactate 1.7 mmol/L (0.6-1.4)
[2019-03-28 14:14] LABS: Abs Immature Grans 0.14 k/cumm (0.0-0.09); HCT 30.5 % (40.0-50.0); HGB 9.5 g/dL (13.5-17.5); Mean Corp. HGB Concentration 31.1 g/dL (32.0-36.0); Mean Corpuscular Hemoglobin 28.1 pg (27.0-33.0); Mean Corpuscular Volume 90.2 fL (80-95); Mean Platelet Volume 10.4 fL (8.0-11.0); Platelet Count 571 x1000/uL (130-400); RBC 3.38 m/cumm (4.50-6.00); RBC Distribution Width 15.9 % (11.8-14.1)
[2019-03-28] MEDS: Lidocaine 2% Viscous 15 ML CUP PO (14:19)
[2019-03-28 14:20] VITALS: PULSE 84; RESP 4; RESP 8; O2SAT 96
[2019-03-28] MEDS: Albuterol/Ipratropium 3 ML UPD VIAL UPD (14:20)
[2019-03-28] MEDS: methylPREDNISolone SUCC 125 MG VIAL IVP (14:22)
[2019-03-28 14:37] LABS: ALT 11 U/L (16-63); AST 15 U/L (15-37); Albumin 1.9 g/dL (3.4-5.0); Alkaline Phosphatase 465 U/L (46-116); Anion Gap 13.3 mmol/L (3-11); BUN 78 mg/dL (7-18); Bilirubin, Total 0.6 mg/dL (0.2-1.0); CO2 17.7 mmol/L (21.0-32.0); Calcium 8.2 mg/dL (8.5-10.1); Chloride 106 mmol/L (98-107); Estimated GFR 11.75 (mL/min/1.73m2); Glucose 133 mg/dL (70-100); Magnesium 1.7 mg/dL (1.8-2.4); NT-proBNP 7592 pg/mL; Potassium 4.8 mmol/L (3.5-5.1); Sodium 137 mmol/L (136-145); Total Protein 6.5 g/dL (6.4-8.2)
[2019-03-28 14:38] LABS: Troponin I < 0.05 ng/mL (0.00-0.06)
[2019-03-28 14:40] LABS: CREATININE 5.01 mg/dL (0.70-1.30)
[2019-03-28 14:41] LABS: Absolute Lymphocyte Count 0.64 k/cumm (1.2-3.4); Absolute Monocyte Count 2.12 k/cumm (0.11-0.7); Absolute Neutrophil Count 18.44 k/cumm (1.2-6.7)
[2019-03-28 14:42] LABS: Anisocytosis 1+; Burr Cells (echinocyte) 2+; Diff Comment Manual Differential; Ovalocytes 2+
--- NOTE | 2019-03-28 16:46 | PCNE_ITS ---
Date of service: 03/28/19 History of Present Illness History of Present Illness Chief Complaint: recently started immunotherapy; acute illness Narrative: Cornelio's son, Cornelio Márquez, brought him to the ER today when Cornelio said he didn't feel well enough to go to his scheduled appointment with me at [facility]. I went to see him in the ER. Debora Humphreys, ER physician asked me to see him there. Cornelio did not look moribund. He was talking in full sentences. He was not s truggling to breathe. He was mentally alert and able to give a thorough history. He said he had his first dose of Keytruda last Wednesday, one week ago today. On Wednesday, he was told he needed 2 units of blood, which he received. By he started feeling sick. He had fevers , Wednesday and Wednesday. He reported these fevers went as high as 105-106 on his home thermometer. He reports his fevers broke on Wednesday night. He then developed a severe sore throat. It hurt to swallow. He felt weak all over. He wasn't able to drink much as it hurt to swallow. Today, he felt too weak to go to my appointment, so his son took him to the ER. Consults Consult date: 03/28/19 Requesting physician: Debora Humphreys Assessment and Plan Assessment and plan (1) Multisystem organ failure: Status: Acute Assessment and plan: Though Cornelio did not appear acutely ill/septic/on the verge of , he about one hour after I saw him in the ER. His labs showed MSOF, with heart and kidney failure. He had stage 4 bladder cancer, not in remission. He had just received his first immunotherapy dose one week before his . I did call and let [facility] know that he had . (2) Fever: Status: Chronic Assessment and plan: Not febrile at time of ER visit. Slightly hypotensive, but not in shock. Dehydrated. WBC was elevated, ? s/e of immunotherapy? Lactate up a bit. Did not appear critically ill when I saw him soon before he . (3) DNR (do not resuscitate): Status: Acute Assessment and plan: I did a COLST form with Cornelio on his previous admission. Signed and in chart. (4) DNI (do not intubate): Status: Acute (5) POLST (Physician Orders for Life-Sustaining Treatment): Status: Acute (6) Immunotherapy: Status: Acute Assessment and plan: Unclear whether this could be linked to his . (7) Malignant neoplasm metastatic from bladder: Status: Chronic Assessment and plan: Stage IV bladder cancer. Mets to lung. He was doing his best to get treatment and live as long as possible. Has a 7 yo son at home, Miguel. He wanted to live to see him finish elementary school. Unclear if he ever shared with Miguel how sick he was. (8) Bladder cancer: Status: Chronic (9) in emergency department: Status: Acute Assessment and plan: Given the multiple life-threatening illnesses Cornelio had, not surprising that he . However, he did not have any of the usual signs of impending when I saw him, which was within the hour of his . He was clear mentally. He was breathing regularly. He did not look to be in pain. He was not mottled. I told him I would see him tomorrow, and that we would do our best to get him home soon. Review of Systems Constitutional Constitutional: Reports body ache(s), Reports chills, Reports daytime sleepiness, Reports fatigue, Reports fever(s), Reports lethargy, Reports poor appetite, Reports weakness and Reports weight loss Eyes Eyes: Reports dry eyes and Reports requires corrective lenses ENT Ears, Nose, Mouth, and Throat: Reports dizziness, Reports dry mouth, Reports hearing loss, Reports odynophagia, Reports sore throat and Reports throat swelling Cardiovascular Cardiovascular: Reports rapid heart rate, Reports lightheadedness, Reports dyspnea and Reports dyspnea on exertion Respiratory Respiratory: Reports cough, Reports dyspnea and Reports dyspnea on exertion Gastrointestinal Gastrointestinal: Reports early satiety, Reports diarrhea (3 BMs today; no blood) and Reports odynophagia Genitourinary Genitourinary: Reports other (has ileovesical conduit; urine malika colored, not cloudy, + mucous) Musculoskeletal Musculoskeletal: Reports back pain, Reports atrophy, Reports arthralgias and Reports muscle weakness Integumentary/Breasts Skin/Breast: Reports dry skin Neurologic Neurologic: Reports dizziness and Reports weakness Comments: cognitively intact; no delirium; good historian Psychiatric Psychiatric: Reports change in appetite Comments: did not appear anxious, confused, or distressed Endocrine Endocrine: Reports fatigue Hematologic/Lymphatic Hematologic/Lymphatic: Reports easy bruising Allergic/Immunologic Allergic/Immunologic: Reports throat swelling [facility] Medical History Acute sinus infection (Acute) Anemia (Chronic) ASCVD (arteriosclerotic cardiovascular disease) (Acute) Bladder cancer (Chronic) Bladder mass (Acute) Cardiomyopathy (Acute) CHF (congestive heart failure) (Chronic) Chronic kidney disease, stage 5 (Chronic) 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) Cigarette smoker one half pack a day or less (Chronic) CKD (chronic kidney disease) (Acute) COPD (chronic obstructive pulmonary disease) (Chronic) Emphysema, unspecified (Acute) Family dysfunction (Acute) Left lower lobe pulmonary nodule (Chronic) Lung mass (Chronic) Malignant neoplasm metastatic from bladder (Chronic) Osteoarthritis (Chronic) Palliative care patient (Chronic) Symptomatic anemia (Acute) Unintentional weight loss (Acute) Uremia, acute (Acute) Ureteral anastomotic obstruction (Acute) Surgical History H/O prostatectomy (Chronic) H/O total cystectomy (Chronic) History of ankle surgery (Acute) left ankle repair, 3 pins History of biopsy of bladder (Acute) Previous back surgery (Acute) discetomy to four discs (lumbar spine) Family History Mother , of breast cancer aged 77 No problems noted. Father , of kidney disease, CHF aged 77 s/p nephrectomy for uncertain reason, ? cancer No problems noted. Brother , of bladder and ? colon cancer aged 45 No problems noted. Sister Diabetes Son Age: 7 No problems noted. Son Age: 38 No problems noted. Son Age: 42 No problems noted. Son Age: 40 No problems noted. Social History Smoking/Tobacco Use Status: Current every day Tobacco Type: cigarettes Years s moked: 50 Tobacco: How many years used: 50 Quit status: considering quitting Counseling given: support program and counseling >3 minutes Alcohol Intake: former Drug use: Occasionally Substance use type: marijuana Counseling given: No Adopted: No Caregiver/Support person: Yes Foster care: No Household members: spouse and other Details: living with - 8 years Housing: house Number of Children: 5 number of grandchildren: 11 Communication Needs: Hard of Hearing and Corrective Lenses Education Level: high school Do you need help understanding health information?: Always 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, [employer], 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, 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 Pets and animals: Yes Sexually active: No What is your relationship status?: How often do you talk on the phone with friends or family?: three or more times per week How often do you get together with friends or relatives?: three or more times per week Panel score (0-1 are the most socially isolated patients): 1 What type of physical activity do you participate in: none Duration: 15-30 minutes/day Special josé antonio needs: No Agree to transfusion: Yes Seatbelt use: always Drive intox or ride w/intox route sales delivery 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 Cornelio worried about who will care for him. Thinks son Vivek will. Cornelio does all the shopping and cooking for the household. often mean to Cornelio's young son; son still loves her. Exam Const General: cooperative, no acute distress, disheveled, frail appearing and ill a ppearing Nutritional Appearance: cachectic, malnourished and underweight Orientation: alert, awake and oriented x3 HENMT Head: normocephalic and atraumatic Ears: hearing grossly normal bilaterally General nose exam: external nose normal Face and sinus: normal facial exam, face symmetric and dry mucous membranes Mouth: malodorous breath and tongue abnormal Teeth and gingiva: edentulous Throat: posterior oropharynx abnormal edema and erythema Eyes Conjunctivae: conjunctivae normal Sclera: sclerae normal Neck Neck: no lymphadenopathy and no JVD Thyroid: thyroid normal Resp Effort & Inspection: normal respiratory effort, able to speak in complete sentences, no respiratory distress, not tachypneic and no use of accessory muscles Auscultation: clear to auscultation bilaterally and diminished lung sounds Cardio Jugular venous pressure: no JVD Rate: regular rate Rhythm: regular rhythm Heart Sounds: S1 normal and S2 normal GI Inspection: scaphoid and other (ileovesicular conduit right side) Palpation: firm Auscultation: normal bowel sounds General: No CVA tenderness Skin General skin exam: dry skin, pallor and turgor decreased Trauma: no lacerations or abrasions Hair: general thinning Nails: clubbing Neuro General: alert, awake, oriented x3 and unable to assess gait (on ER stretcher) Cognition: normal cognition Speech: speech normal Sensory Exam: no sensory deficits noted Extrem General: clubbing and muscle atrophy Psych Appearance: disheveled Mental Status: mental status grossly normal Speech and Movement: speech clear Mood: congruent mood (wanted to be admitted to get IVF and feel better) Affect: normal affect Attitude: cooperative Thought Process: normal (neither he nor I realized how sick her was; nor did Dr Humphreys or his son) Thought Content: normal Insight: fair Judgment: fair Other: He knows he has a terminal illness; he thinks that Keytruda might work; has only had one dose; hoping for the best. Results Last Vital Signs Temp 97.7 F 03/28/19 12:51 Pulse 84 03/28/19 14:20 Resp 16 03/28/19 12:51 BP 90/55 L 03/28/19 12:51 Pulse Ox 96 03/28/19 14:20 Labs Result diagrams: 03/28/19 12:45 03/28/19 13:43 Labs: Laboratory Results - last 24 hr 03/28/19 03/28/19 03/28/19 12:45 13:43 13:43 WBC 21.20 H RBC 3.38 L Hgb 9.5 L Hct 30.5 L MCV 90.2 MCH 28.1 MCHC 31.1 L RDW 15.9 H Plt Count 571 H MPV 10.4 Immature Gran % 0.0 Neutrophils % 79.0 Band Neutrophils % 8.0 Lymphocytes % 3.0 Monocytes % 10.0 Eosinophils % 0.0 Basophils % 0.0 Absolute Neutrophils 18.44 H Absolute Lymphocytes 0.64 L Absolute Monocytes 2.12 H Absolute Eosinophils 0.00 Absolute Basophils 0.00 Differential Comment Manual differential RBC Morphology See below Anisocytosis 1+ Ovalocytes 2+ Ju[place]ino Cells 2+ Sodium 137 Potassium 4.8 Chloride 106 Carbon Dioxide 17.7 L Anion Gap 13.3 H BUN 78 H Creatinine 5.01 H* Estimated GFR/1.73 m2 11.75 Glucose 133 H Lactate 1.7 H Calcium 8.2 L Magnesium 1.7 L Total Bilirubin 0.6 AST 15 ALT 11 L Alkaline Phosphatase 465 H Troponin I < 0.05 NT-Pro-B Natriuret Pep 7592 H Total Protein 6.5 Albumin 1.9 L
--- NOTE | 2019-03-28 22:27 | NUR.NOTE ---
1438-film writer bedside administering neb tx as ordered after pt returned from CT and film writer attempting to reinforce IV site with tape when pt began yelling at film writer to stop applying tape. film writer assured pt that IV is patent but just needed reinforced and pt yelled, No, stop. then pt went non responsive with no respirations and no pulse. Dr Vizcaino notifed and is bedside. Nursing Note:
== END 2019-03-28 15:50 | disposition expired ==
PROVIDERS: Emergency Provider Physician Assistant; PCP Family Medicine
DX: I46.9 Cardiac arrest, cause unspecified (principal); C78.00 Secondary malignant neoplasm of unspecified lung; J44.9 Chronic obstructive pulmonary disease, unspecified; F17.210 Nicotine dependence, cigarettes, uncomplicated; C67.9 Malignant neoplasm of bladder, unspecified
CPT/HCPCS: 36415; 80053; 87040; 87449; 93005; 94640; 96361; 96374; 99255; 99284; 71046; 83605; 83735; 83880; 84484; 85025; 87081; 93010; J2930; J7620